=== PATIENT | male | born 1935 | race Caucasian/White ===

== ENCOUNTER 2018-07-14 14:08 | Emergency (ER) | payer OTHER, BC ==
--- OUTSIDE RECORDS SUMMARY | 2018-07-14 14:10 | XMS REPORT ---
:1935 [facility] Address [address] [place] [address] Dr. Black [address] [place] [id number] Care Team Providers Name Role Phone Unavailable Unavailable Unavailable Problems This patient has no known problems. Allergies, Adverse Reactions, Alerts This patient has no known allergies or adverse reactions. Medications This patient has no known medications.
--- OUTSIDE RECORDS SUMMARY | 2018-07-14 14:10 | XMS REPORT | Clinical Summary ---
:1935 Author Organization [facility] Address [address] [place] [address] Care Team Providers Name Role Phone Unavailable Primary Care Provider Unavailable Allergies Not on File Medications Not on file Active Problems Not on file Encounters Date Type Specialty Care Team Description 04/22/2018 Outside Orders Central Scheduling Chente Lew Multiple lung nodules MD Aramis on CT (Primary Dx) after 07/13/2017 Social History Tobacco Use Types Packs/Day Years Used Date Never Assessed Sex Assigned at Date Recorded Not on file Job Start Date Occupation Industry Not on file Not on file Not on file Travel History Travel Start Travel End No recent travel history available. Last Filed Vital Signs Not on file Plan of Treatment Not on file Results Not on fileafter 07/13/2017 Insurance Payer Benefit Plan / Subscriber ID Type Phone Address Group MEDICARE MEDICARE A B xxxxxxxxxxx Medicare BLUE CROSS/BLUE BCBS INDEMNITY [place] xxxxxxxxxxxx PPO [phone] [address] [facility] [place] [address]
[2018-07-14 15:26] LABS: Absolute Lymphocytes (CBC) 1.2 K/uL (0.7-4.9); Absolute Monocytes 0.7 K/uL (0.1-1.3); Absolute Neutrophil 4.7 K/uL (1.8-8.0); Basophils % 0.5 % (0-1.3); Eosinophils % 1.6 % (0-4.4); Hematocrit 33.2 % (39.6-49.0); Lymphocytes % 17.3 % (15.3-44.8); MPV 9.8 fL (7.6-11.3); Monocytes % 10.5 % (3.3-12.3); RBC Red Blood Cell Count 3.75 M/uL (4.33-5.43)
[2018-07-14 15:47] LABS: Albumin 2.9 g/dL (3.4-5.0); Bilirubin Direct 2.8 mg/dL (0-0.2); Bilirubin Total 3.5 mg/dL (0.2-1.0); Potassium 4.2 mmol/L (3.5-5.1)
[2018-07-14] MEDS ORDERED: NA CHLORIDE 0.9% 500 ML ONE (16:16)
--- NOTE | 2018-07-14 16:58 | RAD REPORT ---
EXAM DESCRIPTION: CT - Abdomen Pelvis W Contrast - 07/14/2018 4:25 pm CLINICAL HISTORY: Abdominal pain, nausea and vomiting COMPARISON: CT imaging December 2013 TECHNIQUE: Biphasic, helical CT imaging of the abdomen and pelvis was performed following 100 ml non -ionic IV contrast. No oral contrast administered. All CT scans are performed using dose optimization technique as appropriate and may include automated exposure control or mA/KV adjustment according to patient size. FINDINGS: No suspicious findings in the lung bases. Liver and spleen show no suspicious findings. Biliary tree is dilated. Cholecystectomy clips are pres ent. Dilatation is not outside of normal range for a post cholecystectomy patient. Common duct stones can be occult. Symmetric renal function is seen with no hydronephrosis or suspicious renal mass. No pyelonephritis o r acute parenchymal process. No bladder abnormalities. No adrenal abnormalities. Prostate gland and s eminal vesicles within normal range. No gastric dilatation or gastric wall thickening. Dilatation of the pancreatic duct seen in the tail and distal body. No mass lesions seen. This may be the sequela of prior pancreatitis seen on the 2013 study. A few fluid-filled nondilated small bowel loops are present. Patient has prominent left-sided diverticulosis. No diverticulitis confirmed. Patient does have stranding along the left anterior par arenal fascia and in the midline inferior to the pancreas. No specific findings in the peripancreatic tissues. No free air or pneumatosis. Trace amounts of free intraperitoneal fluid are present. No he rnia, mass or bulky lymphadenopathy. No suspicious bony findings. IMPRESSION: No bowel obstruction, free air or surgically emergent finding. Patient has nonspecific stranding in the peritoneal fat along with a trace amount of free fluid. No a cute findings specific to the pancreas Gallbladder is absent. Biliary tree is dilated more so than in 2014. This can still be within range o f normal. Duct stones can be occult. No pancreatic or duodenal mass. Prominent diverticulosis without specific acute diverticulitis finding.
--- NOTE | 2018-07-14 17:55 | ER ---
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 Vomited la1 x1 today, reports BMs have been smaller and a little white looking. Transition of care: patient was not received from another setting of care. Onset of symptoms was July 14, 2018. Risk Assessment: Do you want to hurt yourself or someone else? Patient reports no desire to harm self or others. Initial Sepsis Screen: Does the patient meet any 2 criteria? No. Patient's initial sepsis screen is negative. Does the patient have a suspected source of infection? No. Patient's initial sepsis screen is negative. Care prior to arrival: None. 14:17 Method Of Arrival: Ambulatory la1 14:17 Acuity: ELVIRA 3 la1 Historical: - Allergies: 14:18 PENICILLINS; la1 - PMHx: 14:18 Diabetes - NIDDM; GERD; Hypertension; Myocardial infarction; la1 - Immunization history:: Adult Immunizations up to date. - Social history:: Smoking status: Patient/guardian denies using tobacco. - Ebola Screening: : No symptoms or risks identified at this time. Screenin:10 Abuse screen: Denies threats or abuse. Nutritional screening: No deficits noted. aa5 Tuberculosis screening: No symptoms or risk factors identified. Fall Risk None identified. Assessment: 15:10 General: Appears comfortable, Behavior is calm, cooperative. Pain: Complains of pain in aa5 right lower quadrant and left lower quadrant Pain does not radiate. Pain currently is 0 out of 10 on a pain scale. Quality of pain is described as sharp, Is intermittent. Neuro: Level of Consciousness is awake, alert, obeys commands, Oriented to person, place, time, situation. Cardiovascular: Patient's skin is warm and dry. Respiratory: Airway is patent Respiratory effort is even, unlabored, Respiratory pattern is regular, symmetrical. GI: Abdomen is round Bowel sounds present X 4 quads. Abd is soft and non tender X 4 quads. Reports nausea, vomiting. : No signs and/or symptoms were reported regarding the genitourinary system. EENT: No signs and/or symptoms were reported regarding the EENT system. Derm: Skin is pink, warm \\T\\ dry. Musculoskeletal: Range of motion: intact in all extremities. 16:15 Reassessment: Patient is alert, oriented x 3, equal unlabored respirations, skin aa5 warm/dry/pink. Patient denies pain at this time. 17:40 Reassessment: Patient is alert, oriented x 3, equal unlabored respirations, skin aa5 warm/dry/pink. PA at bedside updating pt on plan of care and need for transfer. . 18:00 Reassessment: Pt's and pt appear upset about inability to transfer to [address] and about being transferred to [facility] instead. Pt's states "can we transfer him to [facility] instead?". PA was notified and attempting transfer to [facility] in [place], [place] at this time. . 19:00 Reassessment: Report given to [facility]. Awaiting EMS, pt notified. . aa5 19:19 Reassessment: Patient appears in no apparent distress at this time. Patient and/or jd3 family updated on plan of care and expected duration. Pain level reassessed. Patient is alert, oriented x 3, equal unlabored respirations, skin warm/dry/pink. awaiting EMS for transportation. Vital Signs: 14:18 BP 112 / 55; Pulse 69; Resp 16; Temp 97.2; Pulse Ox 98% on R/A; Weight 83.91 kg; Height la1 6 ft. 0 in. (182.88 cm); 15:15 BP 119 / 61; Pulse 67; Resp 16 S; Pulse Ox 98% on R/A; aa5 16:00 BP 107 / 58; Pulse 61; Resp 16 S; Pulse Ox 98% on R/A; aa5 17:00 BP 124 / 58; Pulse 58; Resp 16 S; Pulse Ox 98% on R/A; aa5 18:20 BP 116 / 55; Pulse 60; Resp 16 S; Temp 98.5(TE); Pulse Ox 99% on R/A; Pain 0/10; aa5 19:18 BP 116 / 57; Pulse 61; Resp 16 S; Pulse Ox 98% on R/A; jd3 14:18 Body Mass Index 25.09 (83.91 kg, 182.88 cm) la1 ED Course: 14:10 Patient arrived in ED. rg4 14:10 Braydon Andres MD is Private Physician. rg4 14:18 Triage completed. la1 14:18 Arm band placed on left wrist. la1 14:39 Reggie Altamirano, YAMIL is Primary Nurse. hj 14:44 Kianna Lawson, YAMIL is Primary Nurse. aa5 14:48 Solomon Saenz PA is PHCP. jr8 14:48 Steven Smith MD is Attending Physician. jr8 15:10 Patient has correct armband on for positive identification. Placed in gown. Bed in low aa5 position. Call light in reach. Side rails up X2. Pulse ox on. NIBP on. 15:10 Initial lab(s) drawn, by nh, sent to lab. Inserted saline lock: 22 gauge in right hj antecubital area, using aseptic technique. Blood collected. 16:13 Inserted saline lock: 22 gauge in left antecubital area, using aseptic technique. hj 16:19 CT completed. Patient tolerated procedure well. Patient moved to CT via wheelchair. sw Patient moved back from CT. 16:27 CT Abd/Pelvis - W/Contrast In Process Unspecified. EDMS 17:12 transfer initiated with Antonella at the [facility] [place]. eb 17:33 transfer initiated with Mildred at the [facility] transfer center as requested by eb patient. 17:40 connected the GI inspection manager from [facility] with Solomon RECIO for patient transfer eb consultation. 17:43 Mildred from [facility] called to decline patient in transfer due to be at capacity. eb 18:03 initiated a transfer with Liv from the [facility] in attempt to eb transfer patient to [facility] at the request of the patient. 18:15 connected the GI inspection manager from [facility] with Solomon RECIO for patient eb transfer consultation. 18:22 administrative approval given by Liv Garcia RN from the [facility] eb center/ Patient has been accepted by Harsha Piper S to the [facility]/ patient is going to the 4th floor there/ report to be called to [phone]. 19:10 Report given to YAMIL Simmons and YAMIL Mock. aa5 19:39 No provider procedures requiring assistance completed. Patient transferred, IV remains jd3 in place. Administered Medications: 15:59 Drug: NS 0.9% 500 ml Route: IV; Rate: bolus; Site: left antecubital; 17:00 Follow up: IV Status: Completed infusion; IV Intake: 500ml aa5 18:00 Drug: Mefoxin 1 grams {Note: administered slow IVP per pharmacy at this time .} Route: aa5 IVPB; Infused Over: 30 mins; Site: left antecubital; 18:25 Follow up: Response: No adverse reaction aa5 19:00 Follow up: Response: No adverse reaction; IV Status: Completed infusion; IV Intake: 75ofhg5 18:25 Drug: Flagyl 500 mg Volume: 100 ml; Route: IVPB; Rate: 200 ml/hr; Infused Over: 30 aa5 mins; Site: left antecubital; 18:38 Follow up: Response: No adverse reaction aa5 18:55 Follow up: Response: No adverse reaction; IV Status: Completed infusion; IV Intake: aa5 100ml Intake: 17:00 IV: 500ml; Total: 500ml. aa5 18:55 IV: 100ml; Total: 600ml. aa5 19:00 IV: 50ml; Total: 650ml. jd3 Outcome: 17:54 ER care complete, transfer ordered by MD. shaw 19:39 Transferred by ground EMS to other acute care facility: [facility]. Transfer form jd3 completed. X-rays sent w/ patient. Note: report given to EMS 19:39 Condition: stable 19:39 Instructed on the need for transfer, Demonstrated understanding of instructions. 19:40 Patient left the ED. jd3 Signatures: Dispatcher [employer] EDMS Kianna Lawson, RN RN aa5 Solomon Saenz PA PA jr8 Sujit Aguayo RN RN Angela Gonzalez Henry, RN RN hj Garcia, Rubi rg4 Davies, Jonathon, RN RN jd3 Maite Churchill Corrections: (The following items were deleted from the chart) 18:27 18:00 Mefoxin 1 grams IVPB in left antecubital over 30 mins aa5 aa5 18:33 18:20 Pulse 60bpm; Resp 16bpm; Spontaneous; Pulse Ox 99% RA; Temp 98.5F Temporal; Pain aa5 0/10; aa5
--- NOTE | 2018-07-14 17:56 | EDPHYS ---
Physician Documentation [facility] Name: Dirk Arshad Age: 82 yrs Sex: Male : 1935 Arrival Date: 07/14/2018 Time: 14:10 Bed 6 Private MD: Braydon Andres C ED Physician Steven Smith HPI: 07/14 16:09 This 82 yrs old Male presents to ER via Ambulatory with complaints of jr8 Abdominal Pain. 16:09 The patient presents with abdominal pain that is diffuse. Onset: The symptoms/episode jr8 began/occurred gradually, 2 day(s) ago. The symptoms do not radiate. Associated signs and symptoms: Pertinent positives: nausea. The symptoms are described as dull, stabbing. Modifying factors: The symptoms are alleviated by nothing, the symptoms are aggravated by nothing. Severity of pain: At its worst the pain was moderate in the emergency department the pain is unchanged. The patient has not experienced similar symptoms in the past. The patient has not recently seen a physician. Stated that he has been taking stool softeners for constipation feeling. Stated that he is able to have a bowel movement now but noticed that his stool is almost white looking and now having pain, distension, and nausea feeling . Historical: - Allergies: 14:18 PENICILLINS; la1 - PMHx: 14:18 Diabetes - NIDDM; GERD; Hypertension; Myocardial infarction; la1 - Immunization history:: Adult Immunizations up to date. - Social history:: Smoking status: Patient/guardian denies using tobacco. - Ebola Screening: : No symptoms or risks identified at this time. ROS: 16:09 Eyes: Negative for injury, pain, redness, and discharge, ENT: Negative for injury, jr8 pain, and discharge, Neck: Negative for injury, pain, and swelling, Cardiovascular: Negative for chest pain, palpitations, and edema, Respiratory: Negative for shortness of breath, cough, wheezing, and pleuritic chest pain, Back: Negative for injury and pain, MS/Extremity: Negative for injury and deformity, Skin: Negative for injury, rash, and discoloration, Neuro: Negative for headache, weakness, numbness, tingling, and seizure. 16:09 Abdomen/GI: Positive for abdominal pain, nausea, constipation, abdominal cramps, abdominal distension, Negative for hematemesis, black/tarry stool, rectal pain, rectal bleeding, bowel incontinence, flatulence. Exam: 16:09 Eyes: Pupils equal round and reactive to light, extra-ocular motions intact. Lids and jr8 lashes normal. Conjunctiva and sclera are non-icteric and not injected. Cornea within normal limits. Periorbital areas with no swelling, redness, or edema. ENT: Nares patent. No nasal discharge, no septal abnormalities noted. Tympanic membranes are normal and external auditory canals are clear. Oropharynx with no redness, swelling, or masses, exudates, or evidence of obstruction, uvula midline. Mucous membranes moist. Neck: Trachea midline, no thyromegaly or masses palpated, and no cervical lymphadenopathy. Supple, full range of motion without nuchal rigidity, or vertebral point tenderness. No Meningismus. Cardiovascular: Regular rate and rhythm with a normal S1 and S2. No gallops, murmurs, or rubs. Normal PMI, no JVD. No pulse deficits. Respiratory: Lungs have equal breath sounds bilaterally, clear to auscultation and percussion. No rales, rhonchi or wheezes noted. No increased work of breathing, no retractions or nasal flaring. Back: No spinal tenderness. No costovertebral tenderness. Full range of motion. Skin: Warm, dry with normal turgor. Normal color with no rashes, no lesions, and no evidence of cellulitis. MS/ Extremity: Pulses equal, no cyanosis. Neurovascular intact. Full, normal range of motion. Neuro: Awake and alert, GCS 15, oriented to person, place, time, and situation. Cranial nerves II-XII grossly intact. Motor strength 5/5 in all extremities. Sensory grossly intact. Cerebellar exam normal. Normal gait. 16:09 Abdomen/GI: Inspection: distension, that is mild, obese Bowel sounds: active, all quadrants, Palpation: soft, in all quadrants, moderate abdominal tenderness, in the anterior aspect of right lateral abdomen and right upper quadrant, mass, is not appreciated, rebound tenderness, is not appreciated, voluntary guarding, is not appreciated, involuntary guarding, is not appreciated, no appreciated organomegaly, Indicators: McBurney's point is not tender, Mayo's sign is negative, Rovsing's sign is negative, Liver: tenderness, is not appreciated. Vital Signs: 14:18 BP 112 / 55; Pulse 69; Resp 16; Temp 97.2; Pulse Ox 98% on R/A; Weight 83.91 kg; Height la1 6 ft. 0 in. (182.88 cm); 15:15 BP 119 / 61; Pulse 67; Resp 16 S; Pulse Ox 98% on R/A; aa5 16:00 BP 107 / 58; Pulse 61; Resp 16 S; Pulse Ox 98% on R/A; aa5 17:00 BP 124 / 58; Pulse 58; Resp 16 S; Pulse Ox 98% on R/A; aa5 18:20 BP 116 / 55; Pulse 60; Resp 16 S; Temp 98.5(TE); Pulse Ox 99% on R/A; Pain 0/10; aa5 19:18 BP 116 / 57; Pulse 61; Resp 16 S; Pulse Ox 98% on R/A; jd3 14:18 Body Mass Index 25.09 (83.91 kg, 182.88 cm) la1 MDM: 14:49 Patient medically screened. [facility] 17:48 ED course: After discussing with family that there is no GI available for admission and [facility] to complete MRCP or ERCP, which family was very irritated by. They wanted to be transferred to [facility]. We reached out to [facility] but are at capacity at this time and will not except transfer. I then called out to [facility] who accepted patient. 17:51 Data reviewed: vital signs, nurses notes, lab test result(s), radiologic studies, CT [facility] scan. Data interpreted: Pulse oximetry: on room air is 98 %. Interpretation: normal. Counseling: I had a detailed discussion with the patient and/or guardian regarding: the historical points, exam findings, and any diagnostic results supporting the discharge/admit diagnosis, lab results, radiology results, the need to transfer to another facility, [facility] does not immediately have the required specialist. ED course: Dr. Judy ACHARYA accepted for consult at [facility]. 18:18 ED course: wanted us to try Rigo Luo which we obliged. GI accepted at [facility] [place] . 07/14 14:58 Order name: Basic Metabolic Panel; Complete Time: 15:58 [facility] 07/14 14:58 Order name: CBC with Diff; Complete Time: 15:37 07/14 14:58 Order name: Creatinine for Radiology; Complete Time: 15:58 07/14 14:58 Order name: Hepatic Function; Complete Time: 15:58 07/14 14:58 Order name: Lipase; Complete Time: 15:58 07/14 15:59 Order name: CT Abd/Pelvis - W/Contrast; Complete Time: 17:04 07/14 14:58 Order name: IV Saline Lock; Complete Time: 15:15 07/14 14:58 Order name: Labs collected and sent; Complete Time: 15:15 Administered Medications: 15:59 Drug: NS 0.9% 500 ml Route: IV; Rate: bolus; Site: left antecubital; hj 17:00 Follow up: IV Status: Completed infusion; IV Intake: 500ml aa5 18:00 Drug: Mefoxin 1 grams {Note: administered slow IVP per pharmacy at this time .} Route: aa5 IVPB; Infused Over: 30 mins; Site: left antecubital; 18:25 Follow up: Response: No adverse reaction aa5 19:00 Follow up: Response: No adverse reaction; IV Status: Completed infusion; IV Intake: [id number] 18:25 Drug: Flagyl 500 mg Volume: 100 ml; Route: IVPB; Rate: 200 ml/hr; Infused Over: 30 aa5 mins; Site: left antecubital; 18:38 Follow up: Response: No adverse reaction aa5 18:55 Follow up: Response: No adverse reaction; IV Status: Completed infusion; IV Intake: aa5 100ml Disposition: 07/14/18 17:54 Transfer ordered to Other Acute Care Facility. 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 - Reason for transfer: Higher level of care. - Accepting physician is Rigo Luo. - Condition is Stable. - Problem is new. - Symptoms are unchanged. Addendum: 07/16/2018 08:11 Co-signature as Attending Physician, Steven Smith MD I agree with the assessment and k dr plan of care. Signatures: Dispatcher [employer] EDOH Steven Smith MD MD [facility] Kianna Lawson, RN RN aa5 Solomon Saenz PA PA jr8 Sujit Aguayo RN RN la1 Reggie Altamirano RN RN Nish Jimenez RN RN jd3 Corrections: (The following items were deleted from the chart) 07/14 18:19 17:54 07/14/2018 17:[address] [facility]. 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 Reason for transfer: Higher level of care. Accepting physician is Dr. Kim. Condition is Stable. Problem is new. Symptoms are unchanged. jr8 19:40 18:19 07/14/2018 17:54 Transfer ordered to Other Acute Care Facility. 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 Reason for transfer: Higher level of care. Accepting physician is Rigo Luo. Condition is Stable. Problem is new. Symptoms are unchanged. jr8
[2018-07-14] MEDS ORDERED: CEFOXITIN/SWI 1gm 1 GM/10 ML SYR ONE (18:08)
[2018-07-14] MEDS ORDERED: METRONIDAZOLE 500mg IVPB 500 MG/100 ML BAG IV ONE (18:09)
[2018-07-14 20:29] VITALS: TEMP 98.5
[2018-07-14 20:30] VITALS: BP 116/57; O2SAT 98
== END 2018-07-14 19:40 ==
LOC: ER 14:08
DX: K83.1 Obstruction of bile duct (principal); K72.90 Hepatic failure, unspecified without coma; I10 Essential (primary) hypertension; I25.2 Old myocardial infarction; Z88.0 Allergy status to penicillin
CPT/HCPCS: 96365; 96361; 85025; 80048; 36415; 80076; 83690; 74177; 99285; Q9967

== ENCOUNTER 2018-11-17 14:41 | Emergency (ER) | payer OTHER, BC ==
[2018-11-17] MEDS ORDERED: NA CHLORIDE 0.9% 1,000 ML ONE ×2 (14:59→15:26)
[2018-11-17 15:28] LABS: Absolute Lymphocytes (CBC) 2.3 K/uL (0.7-4.9); Basophils % 1.2 % (0-1.3); Hematocrit 34.2 % (39.6-49.0); Lymphocytes % 19.9 % (15.3-44.8); MPV 9.4 fL (7.6-11.3); RBC Red Blood Cell Count 3.97 M/uL (4.33-5.43)
--- NOTE | 2018-11-17 15:37 | RAD REPORT ---
EXAM DESCRIPTION: RAD - Chest Single View - 11/17/2018 3:31 pm CLINICAL HISTORY: Cough COMPARISON: March 01, 2018 TECHNIQUE: AP portable chest image was obtained 1523 hours . FINDINGS: Fibrotic an obstructive lung changes match prior imaging. Stranding is slightly worse in t he right base. Minimal infiltrate is possible. No consolidation or mass. No vascular engorgement. Hea rt size is normal. No measurable pleural effusion and no pneumothorax. Skin fold artifacts are seen i n each apex. No acute bony abnormality seen. No acute aortic findings suspected. IMPRESSION: Prominent baseline COPD with slightly increased right lung base markings. Correlation is needed with any early lung base infiltrate findings.
[2018-11-17 15:38] LABS: Protime INR 1.06
[2018-11-17 15:51] LABS: ALT/SGPT 14 U/L (12-78); AST/SGOT 18 U/L (15-37); Albumin 2.5 g/dL (3.4-5.0); Alkaline Phosphatase 128 U/L (45-117); BUN Blood Urea Nitrogen 37 mg/dL (7-18); Bicarbonate 23 mmol/L (21-32); Bilirubin Direct 0.2 mg/dL (0-0.2); Bilirubin Total 0.5 mg/dL (0.2-1.0); Glucose Level 186 mg/dL (74-106); Lipase 137 U/L (73-393); Magnesium 1.8 mg/dL (1.8-2.4); NT PRO-BNP 2751 pg/mL (<450); Potassium 3.8 mmol/L (3.5-5.1); Protein, Total 6.6 g/dL (6.4-8.2); Sodium Level 134 mmol/L (136-145); Troponin (Emerg Dept Use Only) < 0.02 ng/mL (0.0-0.045)
--- NOTE | 2018-11-17 16:21 | RAD REPORT ---
EXAM DESCRIPTION: CT - Abdomen Pelvis Wo Contrast - 11/17/2018 4:07 pm CLINICAL HISTORY: ABD PAIN COMPARISON: Abdomen Pelvis W Contrast dated 07/14/2018 . TECHNIQUE: Axial [address] imaging of the abdomen and pelvis was performed without IV contrast. No IV contrast was given because of allergy, abnormal renal function, patient refusal or physician re quest. No oral contrast administered. All CT scans are performed using dose optimization technique as appropriate and may include automated exposure control or mA/KV adjustment according to patient size. FINDINGS: Small spiculated density lateral right lung base not clearly different from the May study. Small bilateral pleural effusions are present. Nodular liver is again noted. TIPS stent is in place with pneumobilia present. No focal liver lesion on noncontrast imaging. No splenic abnormality. No pancreatic parenchymal acute finding. Cholecystect casey clips are present. No biliary tree abnormal dilatation. No hydronephrosis or suspicious renal mass. No significant adrenal finding. Isodense renal masses an d pyelonephritis cannot be excluded in the absence of IV contrast. Urinary bladder is contracted. Gastric haney are thickened in appearance but difficult to accurately assessed due to the absence of any contrast, fluid or fluid in the lumen. Large and small bowel loops are not dilated. Prominent div erticulosis in the sigmoid colon without acute diverticulitis suspected. No free air or pneumatosis. A large amount of ascites has developed. Significant fluid retention in t he subcutaneous fatty tissues. No hernia, mass or bulky lymphadenopathy. No suspicious bony findings. IMPRESSION: Large volume of ascites has developed since the June comparison study. Patient has also r eceived a TIPS shunt. No free air or pneumatosis. No bowel obstruction. Prominent left-sided diverticulosis present. Significant fluid retention in the subcutaneous fatty tissues along with small bilateral pleural effu sions. 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 Full assessment is limited is the absence of IV contrast.
[2018-11-17] MEDS ORDERED: CEFTRIAXONE/SWI 1gm 1 GM/10 ML SYR ONE (16:59)
--- NOTE | 2018-11-17 17:24 | EDPHYS ---
Physician Documentation [facility] Name: Dirk Arshad Age: 83 yrs Sex: Male : 1935 Arrival Date: 11/17/2018 Time: 14:45 Bed 3 Private MD: Braydon Andres C ED Physician Papa Bertrand HPI: 11/17 15:13 This 83 yrs old Male presents to ER via Wheelchair with complaints of vince Diarrhea, General Weakness, dehydration. 15:10 The patient presents to the emergency department with nausea, diarrhea, abdominal pain. vince Onset: The symptoms/episode began/occurred today, yesterday. Possible causes: unknown. The symptoms are aggravated by movement, The symptoms are alleviated by nothing. remaining still. Associated signs and symptoms: The patient has no apparent associated signs or symptoms. The patient has experienced similar episodes in the past, several times. Historical: - Allergies: 14:47 PENICILLINS; sv - Home Meds: 15:08 allopurinol 300 mg Oral tab 1 tab once daily [Active]; carvedilol 3.125 mg Oral tab 1 mg2 tab 2 times per day [Active]; atprvastatom 40 mg once daily [Active]; gemfibrozil 600 mg Oral tab 1 tab 2 times per day [Active]; finasteride 1 mg Oral tab 1 tab once daily [Active]; glimepiride 4 mg Oral tab 1 tab once daily [Active]; metformin 1,000 mg Oral tr24 1 tab once daily [Active]; pantoprazole 40 mg Oral TbEC 1 tab once daily [Active]; pioglitazone 15 mg Oral tab 1 tab once daily [Active]; spariva [Active]; valsartan 320 mg Oral tab 1 tab once daily [Active]; - PMHx: 14:47 Diabetes - NIDDM; GERD; Hypertension; Myocardial infarction; sv - Immunization history:: Flu vaccine status is unknown. - Social history:: Smoking status: unknown. - Ebola Screening: : No symptoms or risks identified at this time. - Family history:: not pertinent. ROS: 15:10 Constitutional: Negative for fever, chills, and weight loss, Eyes: Negative for injury, vince pain, redness, and discharge, ENT: Negative for injury, pain, and discharge, Neck: Negative for injury, pain, and swelling, Cardiovascular: Negative for chest pain, palpitations, and edema, Respiratory: Negative for shortness of breath, cough, wheezing, and pleuritic chest pain, Back: Negative for injury and pain, : Negative for injury, bleeding, discharge, and swelling, Skin: Negative for injury, rash, and discoloration, Psych: Negative for depression, anxiety, suicide ideation, homicidal ideation, and hallucinations, Allergy/Immunology: Negative for hives, rash, and allergies, Endocrine: Negative for neck swelling, polydipsia, polyuria, polyphagia, and marked weight changes, Hematologic/Lymphatic: Negative for swollen nodes, abnormal bleeding, and unusual bruising. 15:10 Abdomen/GI: Positive for abdominal pain, abdominal distension. 15:10 MS/extremity: Positive for swelling. 15:10 Neuro: Positive for weakness. Exam: 15:10 Constitutional: This is a well developed, well nourished patient who is awake, alert, vince and in no acute distress. Head/Face: Normocephalic, atraumatic. Eyes: Pupils equal round and reactive to light, extra-ocular motions intact. Lids and lashes normal. Conjunctiva and sclera are non-icteric and not injected. Cornea within normal limits. Periorbital areas with no swelling, redness, or edema. ENT: Nares patent. No nasal discharge, no septal abnormalities noted. Tympanic membranes are normal and external auditory canals are clear. Oropharynx with no redness, swelling, or masses, exudates, or evidence of obstruction, uvula midline. Mucous membranes moist. Neck: Trachea midline, no thyromegaly or masses palpated, and no cervical lymphadenopathy. Supple, full range of motion without nuchal rigidity, or vertebral point tenderness. No Meningismus. Chest/axilla: Normal chest wall appearance and motion. Nontender with no deformity. No lesions are appreciated. Cardiovascular: Regular rate and rhythm with a normal S1 and S2. No gallops, murmurs, or rubs. Normal PMI, no JVD. No pulse deficits. Respiratory: Lungs have equal breath sounds bilaterally, clear to auscultation and percussion. No rales, rhonchi or wheezes noted. No increased work of breathing, no retractions or nasal flaring. Back: No spinal tenderness. No costovertebral tenderness. Full range of motion. Male : Normal genitalia with no discharge or lesions. MS/ Extremity: Pulses equal, no cyanosis. Neurovascular intact. Full, normal range of motion. Neuro: Awake and alert, GCS 15, oriented to person, place, time, and situation. Cranial nerves II-XII grossly intact. Motor strength 5/5 in all extremities. Sensory grossly intact. Cerebellar exam normal. Normal gait. Psych: Awake, alert, with orientation to person, place and time. Behavior, mood, and affect are within normal limits. 15:10 Abdomen/GI: Inspection: distension, Bowel sounds: active, Palpation: nontender, Liver: is firm, Hernia: not appreciated. 15:10 Skin: Appearance: Color: pale, Temperature: normal temperature, Moisture: normal moisture, petechiae, not noted, ecchymosis, not noted, cellulitis, is not appreciated. Vital Signs: 14:47 BP 70 / 36; Pulse 65; Resp 18; Temp 98.1(O); Pulse Ox 98% ; Weight 74.84 kg; sv 15:08 BP 80 / 48; Pulse 62; Resp 18; Pulse Ox 100% on R/A; mg2 15:55 BP 91 / 48; Pulse 65; Resp 18; Pulse Ox 98% on R/A; ph 17:34 BP 102 / 49; Pulse 60; Resp 18; Pulse Ox 98% on R/A; mg2 18:43 BP 97 / 52; Pulse 65; Resp 18; Pulse Ox 99% on R/A; mg2 19:11 BP 96 / 51; Pulse 70; Resp 18 S; Pulse Ox 98% on R/A; Pain 0/10; jd3 19:18 BP 107 / 54; jd3 19:55 BP 106 / 54; Pulse 69; Resp 17 S; Pulse Ox 99% on R/A; Pain 0/10; jd3 MDM: 14:52 Patient medically screened. [facility] 15:13 Data reviewed: vital signs, nurses notes, lab test result(s), EKG, radiologic studies, vince plain films. 11/17 14:51 Order name: Basic Metabolic Panel; Complete Time: 16:05 [facility] 11/17 14:51 Order name: CBC with Diff; Complete Time: 16: [facility] 11/17 14:51 Order name: LFT's; Complete Time: 16: [facility] 11/17 14:51 Order name: Magnesium; Complete Time: 16: [facility] 11/17 14:51 Order name: NT PRO-BNP; Complete Time: 16:05 [facility] 11/17 14:51 Order name: PT-INR; Complete Time: 16:05 [facility] 11/17 14:51 Order name: Troponin (emerg Dept Use Only); Complete Time: 16: [facility] 11/17 14:51 Order name: Lipase; Complete Time: 16:05 11/17 15:10 Order name: Type And Screen; Complete Time: 16:21 [facility] 11/17 15:15 Order name: AMMONIA; Complete Time: 16: [facility] 11/17 16:48 Order name: Blood Culture Adult (2) 11/17 14:51 Order name: XRAY Chest (1 view); Complete Time: 16:05 [facility] 11/17 14:51 Order name: EKG; Complete Time: 14:53 [facility] 11/17 14:51 Order name: Cardiac monitoring; Complete Time: 15:03 [facility] 11/17 14:51 Order name: EKG - Nurse/Tech; Complete Time: 15:03 [facility] 11/17 14:51 Order name: IV Saline Lock; Complete Time: 15:03 [facility] 11/17 14:51 Order name: Labs collected and sent; Complete Time: 15:04 [facility] 11/17 14:51 Order name: O2 Per Protocol; Complete Time: 15:04 [facility] 11/17 14:51 Order name: O2 Sat Monitoring; Complete Time: 15:04 [facility] 11/17 16:02 Order name: Abdomen ; Complete Time: 16:46 EDMS 11/17 17:18 Order name: IV Saline Lock - Large Bore; Complete Time: 17:32 [facility] Administered Medications: 15:03 Drug: NS 0.9% 1000 ml Route: IV; Rate: 1 bolus; Site: right antecubital; mg2 16:58 Follow up: Response: No adverse reaction; IV Status: Completed infusion; IV Intake: mg2 1000ml 15:26 Drug: NS 0.9% 1000 ml Route: IV; Rate: 125 ml/hr; Site: right antecubital; mg2 19:17 Follow up: Response: No adverse reaction; IV Status: Infusion continued upon transfer jd3 17:15 Drug: Rocephin 1 grams Route: IV; Rate: per protocol; Site: right antecubital; mg2 18:50 Follow up: Response: No adverse reaction; IV Status: Completed infusion mg2 17:43 Drug: Albumin 25 grams Volume: 100 ml; Route: IVPB; Site: right antecubital; mg2 19:14 Follow up: Response: No adverse reaction; IV Status: Completed infusion jd3 Point of Care Testing: Blood Glucose: 15:04 Blood Glucose: 219 mg/dL; mg2 Ranges: Critical Glucose Levels:Adult <50 mg/dl or >400 mg/dl <40 mg/dl or >180 mg/dl Disposition: 11/17/18 17:22 Transfer ordered to [facility]. Diagnosis are Ascites, Type 2 diabetes mellitus, Unspecified kidney failure, Weakness, Hypotension. - Reason for transfer: Higher level of care. - Accepting physician is to [facility]. - Condition is Fair. - Problem is new. - Symptoms have improved. Signatures: Dispatcher [employer] EDMS Mayra Benitez, RN Papa Oakes MD MD cha Davies, Jonathon, RN RN jFrandy Bills RN RN mg2 Corrections: (The following items were deleted from the chart) 16:02 15:16 Abdomen Pelvis W Con+CT.RAD.BRZ ordered. [facility] EDAZ 18:37 17:22 11/17/2018 17:22 Transfer ordered to [facility]. Diagnosis is vince Ascites; Type 2 diabetes mellitus; Unspecified kidney failure; Weakness; Hypotension. Reason for transfer: Higher level of care. Accepting physician is to [facility]. Condition is Fair. Problem is new. Symptoms have improved. [facility] 20:18 18:37 11/17/2018 17:22 Transfer ordered to [facility]. Diagnosis is jd3 Ascites; Type 2 diabetes mellitus; Unspecified kidney failure; Weakness; Hypotension. Reason for transfer: Higher level of care. Accepting physician is to [facility]. Condition is Fair. Problem is new. Symptoms have improved. vince
--- NOTE | 2018-11-17 17:24 | ER ---
Nurse's Notes [facility] Name: Dirk Arshad Age: 83 yrs Sex: Male : 1935 Arrival Date: 11/17/2018 Time: 14:45 Bed 3 Private MD: Braydon Andres C Diagnosis: Ascites;Type 2 diabetes mellitus;Unspecified kidney failure;Weakness;Hypotension Presentation: 11/17 14:47 Presenting complaint: Patient states: diarrhea, BLE swelling, dehydration x 1 week. sv Transition of care: patient was not received from another setting of care. Onset of symptoms was October 2018. Risk Assessment: Do you want to hurt yourself or someone else? Patient reports no desire to harm self or others. Care prior to arrival: None. 14:47 Method Of Arrival: Wheelchair sv 14:47 Acuity: ELVIRA 2 sv 15:07 Initial Sepsis Screen: Does the patient meet any 2 criteria? No. Patient's initial mg2 sepsis screen is negative. Does the patient have a suspected source of infection? No. Patient's initial sepsis screen is negative. Historical: - Allergies: 14:47 PENICILLINS; sv - Home Meds: 15:08 allopurinol 300 mg Oral tab 1 tab once daily [Active]; carvedilol 3.125 mg Oral tab 1 mg2 tab 2 times per day [Active]; atprvastatom 40 mg once daily [Active]; gemfibrozil 600 mg Oral tab 1 tab 2 times per day [Active]; finasteride 1 mg Oral tab 1 tab once daily [Active]; glimepiride 4 mg Oral tab 1 tab once daily [Active]; metformin 1,000 mg Oral tr24 1 tab once daily [Active]; pantoprazole 40 mg Oral TbEC 1 tab once daily [Active]; pioglitazone 15 mg Oral tab 1 tab once daily [Active]; spariva [Active]; valsartan 320 mg Oral tab 1 tab once daily [Active]; - PMHx: 14:47 Diabetes - NIDDM; GERD; Hypertension; Myocardial infarction; sv - Immunization history:: Flu vaccine status is unknown. - Social history:: Smoking status: unknown. - Ebola Screening: : No symptoms or risks identified at this time. - Family history:: not pertinent. Screenin:05 Abuse screen: Denies threats or abuse. Denies injuries from another. Nutritional mg2 screening: No deficits noted. Tuberculosis screening: No symptoms or risk factors identified. Fall Risk IV access (20 points). Assessment: 15:06 General: Appears in no apparent distress. comfortable, Behavior is calm, cooperative. mg2 Pain: Denies pain. Neuro: Level of Consciousness is awake, alert, obeys commands, Oriented to person, place, time, situation. Cardiovascular: Capillary refill < 3 seconds Patient's skin is warm and dry. Respiratory: Airway is patent Respiratory effort is even, unlabored, Respiratory pattern is regular, symmetrical. GI: Reports diarrhea. : No signs and/or symptoms were reported regarding the genitourinary system. EENT: No signs and/or symptoms were reported regarding the EENT system. Derm: Skin is intact, is healthy with good turgor, Skin is pink, warm \T\ dry. normal. Musculoskeletal: Reports weakness in whole body. 17:15 Reassessment: provider spoke to the patient about the plan for transfer. he agreed. mg2 18:44 Reassessment: provider spoke to the patient about the bed transfer saying that there is [facility] no bed available in [facility] and he suggested [facility]. awaiting decision. 19:09 General: Appears in no apparent distress. comfortable, Behavior is calm, cooperative, jd3 appropriate for age, Reports fatigue for 1-2 days. Pain: Denies pain. Neuro: Level of Consciousness is awake, alert, obeys commands, Oriented to person, place, time, situation. Cardiovascular: Denies chest pain, Capillary refill < 3 seconds Patient's skin is warm and dry. Respiratory: Airway is patent Respiratory effort is even, unlabored, Respiratory pattern is regular, symmetrical, Denies cough, shortness of breath at rest. GI: Abdomen is round noted to have ascites, Abd is non tender X 4 quads Reports diarrhea, Patient currently denies nausea, vomiting. : No signs and/or symptoms were reported regarding the genitourinary system. EENT: No signs and/or symptoms were reported regarding the EENT system. Derm: Skin is intact, Skin is dry, Skin is normal, Skin temperature is warm. Musculoskeletal: Circulation, motion, and sensation intact. Range of motion: intact in all extremities. 19:10 Reassessment: report called to [facility], nurse was unavailable. jd3 19:30 Reassessment: called report to [facility], nurse unavailable. jd3 19:48 Reassessment: report given to Saige LOBO at [facility]. jd3 19:53 Reassessment: pt's : Brooke Arshad: [phone]. jd3 19:55 Reassessment: Patient appears in no apparent distress at this time. Patient and/or jd3 family updated on plan of care and expected duration. Pain level reassessed. Patient is alert, oriented x 3, equal unlabored respirations, skin warm/dry/pink. awaiting EMS for transfer. 20:17 Reassessment: report given to EMS. j Vital Signs: 14:47 BP 70 / 36; Pulse 65; Resp 18; Temp 98.1(O); Pulse Ox 98% ; Weight 74.84 kg; sv 15:08 BP 80 / 48; Pulse 62; Resp 18; Pulse Ox 100% on R/A; mg2 15:55 BP 91 / 48; Pulse 65; Resp 18; Pulse Ox 98% on R/A; ph 17:34 BP 102 / 49; Pulse 60; Resp 18; Pulse Ox 98% on R/A; mg2 18:43 BP 97 / 52; Pulse 65; Resp 18; Pulse Ox 99% on R/A; mg2 19:11 BP 96 / 51; Pulse 70; Resp 18 S; Pulse Ox 98% on R/A; Pain 0/10; jd3 19:18 BP 107 / 54; jd3 19:55 BP 106 / 54; Pulse 69; Resp 17 S; Pulse Ox 99% on R/A; Pain 0/10; jd3 ED Course: 14:45 Patient arrived in ED. am2 14:45 Braydon Andres MD is Private Physician. am2 14:47 Triage completed. sv 14:47 Arm band placed on. sv 14:49 Papa Bertrand MD is Attending Physician. vince 14:54 Frandy Azul, MARCIAL is Primary Nurse. mg2 15:05 No provider procedures requiring assistance completed. Inserted saline lock: 20 gauge mg2 in right antecubital area, using aseptic technique. 15:07 Patient has correct armband on for positive identification. monitor worker on. Pulse mg2 ox on. NIBP on. Door closed. Warm blanket given. 15:07 EKG done, by ED staff, reviewed by Papa Bertrand MD. ms 15:10 Missed attempt(s): 20 gauge in left forearm. ph 15:15 Inserted saline lock: 22 gauge in left hand, using aseptic technique. ph 15:27 Radiology exam delayed due to lab results not completed at this time. (BUN/Creatinine). kw1 15:32 XRAY Chest (1 view) In Process Unspecified. EDMS 16:07 Abdomen In Process Unspecified. EDMS 17:[address] Bertrand with Rose Sandra from the [facility] transfer [place].eb 18:[address] Sparks the doctor director information security for [facility] with Dr. Bertrand for patient eb transfer consultation. 18:29 Rose from the [facility] Transfer Center called to decline the patient in transfer eb because they are at [facility]. 18:30 initiated a transfer with Shawnee Calvillo RN from the [facility]. eb 18:46 connected the Turning Machine Set Up Operator and the Hospitalist director information security for [facility] with Dr. lorna Bertrand for patient transfer consultation. 18:54 administrative approval given by Shawnee Calvillo RN/ patient has been accepted to [facility] bed 1451/ Dr Grimm has accepted the patient in transfer/ report to be called [phone]. 18:59 Report given to marcial esparza. mg2 19:54 Patient transferred, IV remains in place. jd3 Administered Medications: 15:03 Drug: NS 0.9% 1000 ml Route: IV; Rate: 1 bolus; Site: right antecubital; mg2 16:58 Follow up: Response: No adverse reaction; IV Status: Completed infusion; IV Intake: mg2 1000ml 15:26 Drug: NS 0.9% 1000 ml Route: IV; Rate: 125 ml/hr; Site: right antecubital; mg2 19:17 Follow up: Response: No adverse reaction; IV Status: Infusion continued upon transfer jd3 17:15 Drug: Rocephin 1 grams Route: IV; Rate: per protocol; Site: right antecubital; mg2 18:50 Follow up: Response: No adverse reaction; IV Status: Completed infusion mg2 17:43 Drug: Albumin 25 grams Volume: 100 ml; Route: IVPB; Site: right antecubital; mg2 19:14 Follow up: Response: No adverse reaction; IV Status: Completed infusion jd3 Point of Care Testing: Blood Glucose: 15:04 Blood Glucose: 219 mg/dL; mg2 Ranges: Intake: 16:58 IV: 1000ml; Total: 1000ml. mg2 Outcome: 17:22 ER care complete, transfer ordered by MD. clarke 20:17 Transferred by ground EMS to [facility], Transfer form completed. jd3 X-rays sent w/ patient. 20:17 Condition: stable 20:17 Instructed on the need for transfer, Demonstrated understanding of instructions. 20:18 Patient left the ED. jd3 Signatures: Dispatcher [employer] EDMayra Starr RN Papa Oakes MD MD cha Solis, Maria ms Hall, Patricia RN RN Lidia Maza Jonathon, RN RN Anette Clifton1 Maite Churchill Michele, RN RN mg2 Corrections: (The following items were deleted from the chart) 14:48 14:47 Acuity: ELVIRA 3 sv
[2018-11-17] MEDS ORDERED: ALBUMIN HUMAN 25% 100 ML IV ONE (17:38)
[2018-11-17 20:27] VITALS: TEMP 98.1
[2018-11-17 20:35] VITALS: BP 106/54; O2SAT 99
--- NOTE | 2018-11-18 06:12 | EKG ---
Test Date: 2018-11-17 Test Time: 14:57:32 Pediatric Cns: MEASUREMENT RESULTS: Intervals: Rate: 71 OR: 202 QRSD: 112 QT: 418 QTc: 454 [place]: P: 66 OR: 202 QRS: 63 T: 79 INTERPRETIVE STATEMENTS: Sinus rhythm with occasional premature ventricular complexes Right bundle branch block ST & T wave abnormality, consider anterior ischemia Abnormal ECG Compared to ECG 04/30/2017 10:45:29 Ventricular premature complex(es) now present ST (T wave) deviation now present Electronically Signed On 11-18-18 06:12:10 CDT by Ciaran Perez
== END 2018-11-17 20:18 | disposition short-term general hospital (02) ==
LOC: ER 14:41
DX: R18.8 Other ascites (principal); N19 Unspecified kidney failure; E11.9 Type 2 diabetes mellitus without complications; I95.9 Hypotension, unspecified; I10 Essential (primary) hypertension; I25.2 Old myocardial infarction; Z88.0 Allergy status to penicillin
CPT/HCPCS: 96365; 96361; 96368; 93005; 87040 ×2; 85025; 80048; 36415; 82140; 86900; 83735; 86850; 85610; 86901; 82962; 80076; 84484; 83690; 83880; 74176; 71045; 99285; J0696; P9047; J7030 ×2

== ENCOUNTER 2018-11-29 07:21 | Day surgery (SDC) | payer OTHER, BC ==
[2018-11-29 08:56] VITALS: BP 123/73; TEMP 97.8; O2SAT 100
[2018-11-29 08:58] VITALS: BMI 23.0
--- NOTE | 2018-11-29 10:43 | RAD REPORT ---
EXAM DESCRIPTION: US - Abdomen Exam Limited - 11/29/2018 9:33 am CLINICAL HISTORY: Ascites COMPARISON: November 17, 2018 cat scan FINDINGS: The amount of ascites has decreased status post paracentesis. A small to moderate amount o f ascites is present. IMPRESSION: Small to moderate amount of ascites. Paracentesis has been scheduled for December 04, 2018
== END 2018-11-29 09:15 | disposition home or self-care (01) ==
LOC: DS 07:21
PROVIDERS: ATTEND Internal Medicine
DX: K74.60 Unspecified cirrhosis of liver (principal)
CPT/HCPCS: 76705

== ENCOUNTER 2018-12-09 07:42 | Day surgery (SDC) | payer OTHER, BC ==
[2018-12-09] MEDS ORDERED: ALBUMIN HUMAN 25% 200 ML IV ONE (09:47)
[2018-12-09 10:42] VITALS: BMI 23.0
--- NOTE | 2018-12-09 10:47 | RAD REPORT ---
EXAM DESCRIPTION: US - Paracentesis Proc Guidance - 12/09/2018 9:38 am CLINICAL HISTORY: Liver disease with ascites FINDINGS: The risks, benefits and alternatives to the procedure were explained to the patient and in formed consent obtained. The skin and subcutaneous tissues were anesthetized with Lidocaine. Under sonographic guidance an 8 F rench catheter was placed into the right lower quadrant. 7 liters of yellow fluid was removed The patient experienced no immediate complication. IMPRESSION: Paracentesis
[2018-12-09 10:56] VITALS: TEMP 98.7; O2SAT 98
[2018-12-09 10:57] VITALS: BP 117/52
== END 2018-12-09 10:30 | disposition home or self-care (01) ==
LOC: DS 07:42
PROVIDERS: ATTEND Internal Medicine
DX: R18.8 Other ascites (principal); K74.60 Unspecified cirrhosis of liver; K76.0 Fatty (change of) liver, not elsewhere classified
CPT/HCPCS: 96365; 49083; P9047

== ENCOUNTER 2019-01-03 13:32 | Emergency (ER) | payer OTHER, BC ==
--- OUTSIDE RECORDS SUMMARY | 2019-01-03 13:36 | XMS REPORT ---
:1935 [facility] Organization [facility] Address [address] [place] [address] Dr. Black [address] [place] [address] Care Team Providers Name Role Phone KATIE FITZGERALD Roel Unavailable Unavailable HARESH BRUNO Unavailable Unavailable Problems This patient has no known problems. Allergies, Adverse Reactions, Alerts This patient has no known allergies or adverse reactions. Medications This patient has no known medications. Encounters Start End Encounter Admission Attending Care Care Encounter Date/Time Date/Time Type Type Clinicians Facility Department ID 2018-07-14 Inpatient U [facility] MED [id number] 20:48:00 2018-09-30 2018-09-30 Outpatient [facility] [id number] 07:27:00 07:27:00 2018-09-12 2018-09-12 Inpatient E [facility] MED [id number] 11:11:00 09:34:00 2018-09-11 2018-09-11 Outpatient [facility]SE [id number] 06:12:00 06:12:00 2018-08-14 2018-08-14 Outpatient [facility] [id number] 09:41:00 09:41:00 2018-08-07 2018-08-07 Outpatient [facility]SE [id number] 06:48:00 06:48:00 Results Test Description Test Time Test Comments Text Results Atomic Results Result Comments ALPHA FETOPROTEIN (AFP), TUMOR MARKER 2018-12-12 18:53:00 Test Item Value Reference Range Comments ALPHA-FETOPROTEIN (BEAKER) (test kztt=2925) < ng/mL <10.0 HEPATIC FUNCTION [id number] 18:34:00 Test Item Value Reference Range Comments TOTAL PROTEIN (BEAKER) (test rzic=386) 6.3 gm/dL 6.0-8.3 ALBUMIN (BEAKER) (test qlry=1302) 3.2 g/dL 3.5-5.0 BILIRUBIN TOTAL (BEAKER) (test bhtk=264) 0.7 mg/dL 0.2-1.2 BILIRUBIN DIRECT (BEAKER) (test uhyg=373) 0.4 mg/dL 0.1-0.5 ALKALINE PHOSPHATASE (BEAKER) (test uqth=122) 146 U/L 40-150 AST (SGOT) (BEAKER) (test nkqt=392) 29 U/L 5-34 ALT (SGPT) (BEAKER) (test fmvj=414) 23 U/L 6-55 BASIC METABOLIC [id number] 18:34:00 Test Item Value Reference Range Comments SODIUM (BEAKER) (test 136 meq/L 136-145 dznv=423) POTASSIUM (BEAKER) (test 3.4 meq/L 3.5-5.1 uacg=382) CHLORIDE (BEAKER) (test 101 meq/L 98-107 wvam=353) CO2 (BEAKER) (test 27 meq/L 22-29 frgh=682) BLOOD UREA NITROGEN 20 mg/dL 7-21 (BEAKER) (test nrts=094) CREATININE (BEAKER) (test 1.06 mg/dL 0.57-1.25 xyjo=077) GLUCOSE RANDOM (BEAKER) 246 mg/dL 70-105 (test jgbk=585) CALCIUM (BEAKER) (test 9.1 mg/dL 8.4-10.2 yxal=917) EGFR (BEAKER) (test 67 mL/min/1.73 sq m ESTIMATED GFR IS NOT otie=0704) ACCURATE CREATININE CLEARANCE IN PREDICTING GLOMERULAR FILTRATION RATE. ESTIMATED GFR IS NOT APPLICABLE FOR DIALYSIS PATIENTS. PROTHROMBIN [id number] 17:50:00 Test Item Value Reference Range Comments PROTIME (BEAKER) (test hdsp=770) 15.4 seconds 11.9-14.2 INR (BEAKER) (test pdyc=239) 1.3 <=5.9 Effective 07/17/2018: PT Reference Range ChangeNew: 11.9-14.2 Previous: 11.7- 14.7RECOMMENDED COUMADIN/WARFARIN INR THERAPY RANGESSTANDARD DOSE: 2.0-3.0 Includes: PROPHYLAXIS for venous thrombosis, systemic embolization; TREATMENT for venous thrombosis and/or pulmonary embolus.HIGH RISK: Target INR is2.5-3.5 for patients wiht mechanical heart valves.CBC W/PLT COUNT & AUTO [id number] 17:39:00 Test Item Value Reference Range Comments WHITE BLOOD CELL COUNT (BEAKER) (test uaqm=126) 7.8 K/ L 3.5-10.5 RED BLOOD CELL COUNT (BEAKER) (test vyfe=293) 4.12 M/ L 4.63-6.08 HEMOGLOBIN (BEAKER) (test iote=077) 11.5 GM/DL 13.7-17.5 HEMATOCRIT (BEAKER) (test ucbu=775) 36.5 % 40.1-51.0 MEAN CORPUSCULAR VOLUME (BEAKER) (test asch=413) 88.6 fL 79.0-92.2 MEAN CORPUSCULAR HEMOGLOBIN (BEAKER) (test 27.9 pg 25.7-32.2 udef=334) MEAN CORPUSCULAR HEMOGLOBIN CONC (BEAKER) (test 31.5 GM/DL 32.3-36.5 lyyg=136) RED CELL DISTRIBUTION WIDTH (BEAKER) (test 20.7 % 11.6-14.4 pekg=765) PLATELET COUNT (BEAKER) (test wqgo=978) 238 K/CU MM 150-450 MEAN PLATELET VOLUME (BEAKER) (test kwpt=638) 11.2 fL 9.4-12.4 NUCLEATED RED BLOOD CELLS (BEAKER) (test 0 /100 WBC 0-0 gnwb=479) NEUTROPHILS RELATIVE PERCENT (BEAKER) (test 60 % nsgs=152) LYMPHOCYTES RELATIVE PERCENT (BEAKER) (test 25 % vfnh=759) MONOCYTES RELATIVE PERCENT (BEAKER) (test 12 % tqfr=558) EOSINOPHILS RELATIVE PERCENT (BEAKER) (test 2 % zjdp=084) BASOPHILS RELATIVE PERCENT (BEAKER) (test 1 % iwnm=719) NEUTROPHILS ABSOLUTE COUNT (BEAKER) (test 4.68 K/ L 1.78-5.38 qblg=043) LYMPHOCYTES ABSOLUTE COUNT (BEAKER) (test 1.98 K/ L 1.32-3.57 tgvz=803) MONOCYTES ABSOLUTE COUNT (BEAKER) (test 0.93 K/ L 0.30-0.82 nvfi=994) EOSINOPHILS ABSOLUTE COUNT (BEAKER) (test 0.14 K/ L 0.04-0.54 jyof=330) BASOPHILS ABSOLUTE COUNT (BEAKER) (test 0.05 K/ L 0.01-0.08 moix=942) IMMATURE GRANULOCYTES-RELATIVE PERCENT (BEAKER) 1 % 0-1 (test znpn=6245) BLOOD [id number] 08:00:00 Test Item Value Reference Range Comments CULTURE (BEAKER) (test njow=4175) No growth in 5 days BLOOD [id number] 08:00:00 Test Item Value Reference Range Comments CULTURE (BEAKER) (test suqz=5358) No growth in 5 days U/S, [id number] 17:55:00Labs to be ordered:->Other (please add comment)cell countReason for exam:->diagnostic and therapeutic para for cirrhotic ptaient coming in with abd pain and distension.FINAL REPORT Ultrasound guided paracentesis Clinical History: Ascites. Sedation : None. Net Programmer Analyst: Jenniffer Duran PA-C Supervising Physician: Jose Alejandro Palmer MD Building Analyst/Supervisor: None. Estimated Blood Loss: < 1 mL. Specimen: 5800 mL of clear yellow fluid, samples sent to laboratory. Technique: Informed consent was obtained. The risks of pain, bleeding, infection, bowel perforation, injury to adjacent structures, and adverse medication reactions were discussed with the patient. After informed consent was obtained, the patient's abdomen was scanned. The right lower quadrant of the abdomen was selected for paracentesis. After the largest fluid pocket area was marked, and the anterior abdominal wall was evaluated with color Doppler to exclude presence of blood vessels traversing the area, the skin was prepped and draped in the usual sterile manner. After local anesthesia was achieved with lidocaine, a 5 Hungarian one-step catheter was advanced into the peritoneal cavity under ultrasound guidance. After completion of drainage, the catheter was removed. There was no evidence of complication. Impression:Successful ultrasound guided paracentesis. Signed: Jose Alejandro Palmer MDReport Verified Date/ Time: 11/20/2018 17:55:49 Reading Location: [facility] [id number] Ultrasound Reading Room POCT-GLUCOSE [id number] 13:27:00 Test Item Value Reference Range Comments POC-GLUCOSE METER (BEAKER) 250 mg/dL 70-110 TESTED AT [address] (test dywo=4567) [facility] [address] STOOL CULTURE + SHIGA [id number] 12:42:00 Test Item Value Reference Range Comments CULTURE (BEAKER) (test No Salmonella, Shigella or cqws=8530) Campylobacter isolated STOOL PATH [id number] 12:42:00 Test Item Value Reference Range Comments PATHOGEN EXAM CHARGED (BEAKER) (test xzyh=0713) Done U/S, ABDOMINAL, [id number] 09:32:00Reason for exam:->new dx cirrhosis. with doppler pleaseFINAL REPORT TECHNIQUE: Grayscale ultrasound of the abdomen with color Doppler and spectral Doppler ultrasound of the portal/hepatic vasculature. INDICATION: 83-year-old man withcirrhosis. COMPARISON: None. FINDINGS: LIVER: The liver is normal in size and echogenicity with nodular contour. No focal liver lesions. HEPATIC VASCULATURE: Main portal vein measures 0.7 cm in diameter. Portal veins are patent with normal waveform and directionality. Flow velocity in the main portalvein is within normal limits. The hepatic arteries are patent with normal flow velocities, resistiveindices, and waveforms. The hepatic veins and confluence are patent. BILIARY:Gallbladder: Prior cholecystectomy.Common bile duct measures 0.5 cm, within normal limits. No intrahepatic biliary ductal dilatation. Pneumobilia. PANCREAS: The pancreas is not clearly visualized due to overlying bowel gas. SPLEEN: No splenomegaly. PERITONEUM: Small volume ascites. KIDNEYS: Both kidneys are normal in size. No hydronephrosis. No sonographically evident solid mass lesion. MIDLINE VASCULATURE: The visualized inferior vena cava is patent. The maximum visualized aortic diameter is 2.3 cm. Splenic artery and vein are patent. OTHER FINDINGS: Trace bilateral pleural effusions. IMPRESSION:Cirrhosis. No focal liver lesion. Unremarkable Doppler evaluation of the hepatic and portal vasculature. Small volume ascites. Pneumobilia, likely related to prior procedure. Signed: Iliana Fordort Verified Date/Time: 11/20/2018 09:32:31 Reading Location: [address] Radiology Reading Room POCT-GLUCOSE [id number] 08:21:00 Test Item Value Reference Range Comments POC-GLUCOSE METER ([employer] TechnologiesAKER) 156 mg/dL 70-[address] [facility] [address] (test ooja=6978) [facility] [address] [id number] 04:25:00 Test Item Value Reference Range Comments PHOSPHORUS (BEAKER) (test qkzc=218) 2.8 mg/dL 2.3-4.7 [id number] 04:25:00 Test Item Value Reference Range Comments MAGNESIUM (BEAKER) (test woig=074) 1.8 mg/dL 1.6-2.6 BASIC METABOLIC [id number] 04:25:00 Test Item Value Reference Range Comments SODIUM (BEAKER) (test 134 meq/L 136-145 bhhr=077) POTASSIUM (BEAKER) (test 3.3 meq/L 3.5-5.1 zlwx=293) CHLORIDE (BEAKER) (test 103 meq/L 98-107 uyig=405) CO2 (BEAKER) (test 22 meq/L 22-29 xpxb=992) BLOOD UREA NITROGEN 34 mg/dL 7-21 (BEAKER) (test wzen=496) CREATININE (BEAKER) (test 1.26 mg/dL 0.57-1.25 ukbg=452) GLUCOSE RANDOM (BEAKER) 174 mg/dL 70-105 (test jlzf=190) CALCIUM (BEAKER) (test 8.9 mg/dL 8.4-10.2 cfij=227) EGFR (BEAKER) (test 55 mL/min/1.73 sq m ESTIMATED GFR IS NOT fycm=8635) ACCURATE CREATININE CLEARANCE IN PREDICTING GLOMERULAR FILTRATION RATE. ESTIMATED GFR IS NOT APPLICABLE FOR DIALYSIS PATIENTS. HEPATIC FUNCTION [id number] 04:25:00 Test Item Value Reference Range Comments TOTAL PROTEIN (BEAKER) (test qoeg=995) 5.8 gm/dL 6.0-8.3 ALBUMIN (BEAKER) (test yfgo=2682) 2.6 g/dL 3.5-5.0 BILIRUBIN TOTAL (BEAKER) (test odkg=453) 0.3 mg/dL 0.2-1.2 BILIRUBIN DIRECT (BEAKER) (test utjb=133) 0.2 mg/dL 0.1-0.5 ALKALINE PHOSPHATASE (BEAKER) (test jsdh=800) 111 U/L 40-150 AST (SGOT) (BEAKER) (test rplj=626) 18 U/L 5-34 ALT (SGPT) (BEAKER) (test ttmt=995) 10 U/L 6-55 PROTHROMBIN [id number] 03:40:00 Test Item Value Reference Range Comments PROTIME (BEAKER) (test kztm=086) 15.8 seconds 11.9-14.2 INR (BEAKER) (test emnz=950) 1.3 <=5.9 Effective 07/17/2018: PT Reference Range ChangeNew: 11.9-14.2 Previous: 11.7- 14.7RECOMMENDED COUMADIN/WARFARIN INR THERAPY RANGESSTANDARD DOSE: 2.0-3.0 Includes: PROPHYLAXIS for venous thrombosis, systemic embolization; TREATMENT for venous thrombosis and/or pulmonary embolus.HIGH RISK: Target INR is2.5-3.5 for patients wiht mechanical heart valves.CBC W/PLT COUNT & AUTO [id number] 03:31:00 Test Item Value Reference Range Comments WHITE BLOOD CELL COUNT (BEAKER) (test bjpe=859) 6.2 K/ L 3.5-10.5 RED BLOOD CELL COUNT (BEAKER) (test xvoc=942) 3.73 M/ L 4.63-6.08 HEMOGLOBIN (BEAKER) (test wqck=649) 10.3 GM/DL 13.7-17.5 HEMATOCRIT (BEAKER) (test bcik=906) 31.7 % 40.1-51.0 MEAN CORPUSCULAR VOLUME (BEAKER) (test ammp=629) 85.0 fL 79.0-92.2 MEAN CORPUSCULAR HEMOGLOBIN (BEAKER) (test 27.6 pg 25.7-32.2 lmdf=140) MEAN CORPUSCULAR HEMOGLOBIN CONC (BEAKER) (test 32.5 GM/DL 32.3-36.5 uuyl=856) RED CELL DISTRIBUTION WIDTH (BEAKER) (test 17.7 % 11.6-14.4 xskh=912) PLATELET COUNT (BEAKER) (test etzo=186) 221 K/CU MM 150-450 MEAN PLATELET VOLUME (BEAKER) (test maer=538) 10.9 fL 9.4-12.4 NUCLEATED RED BLOOD CELLS (BEAKER) (test 0 /100 WBC 0-0 kvlc=552) NEUTROPHILS RELATIVE PERCENT (BEAKER) (test 55 % cqow=337) LYMPHOCYTES RELATIVE PERCENT (BEAKER) (test 28 % yvbk=516) MONOCYTES RELATIVE PERCENT (BEAKER) (test 13 % ykyy=014) EOSINOPHILS RELATIVE PERCENT (BEAKER) (test 3 % xzan=748) BASOPHILS RELATIVE PERCENT (BEAKER) (test 1 % gdce=966) NEUTROPHILS ABSOLUTE COUNT (BEAKER) (test 3.41 K/ L 1.78-5.38 cnfy=702) LYMPHOCYTES ABSOLUTE COUNT (BEAKER) (test 1.70 K/ L 1.32-3.57 rgua=548) MONOCYTES ABSOLUTE COUNT (BEAKER) (test 0.79 K/ L 0.30-0.82 ellx=051) EOSINOPHILS ABSOLUTE COUNT (BEAKER) (test 0.20 K/ L 0.04-0.54 etqa=394) BASOPHILS ABSOLUTE COUNT (BEAKER) (test 0.07 K/ L 0.01-0.08 lajn=459) IMMATURE GRANULOCYTES-RELATIVE PERCENT (BEAKER) 0 % 0-1 (test egmz=0371) POCT-GLUCOSE [id number] 20:31:00 Test Item Value Reference Range Comments POC-GLUCOSE METER (BEAKER) 193 mg/dL 70-[address] [facility] [address] [facility] (test hpss=1892) [facility] [address] BODY FLUID CELL COUNT WITH [id number] 17:35:00 Test Item Value Reference Range Comments APPEARANCE FLUID (BEAKER) (test oove=571) Clear Clear COLOR FLUID (BEAKER) (test revg=963) Straw Colorless, Straw RBC FLUID (BEAKER) (test asuz=860) 728 /cu mm <=1 ADJUSTED WBC FLUID (BEAKER) (test ufvj=0198) 85 /cu mm <=5 LINING CELLS (BEAKER) (test bfsp=2764) 4 /cu mm <=1 NEUTROPHILS FLUID (BEAKER) (test mnwt=9881) 15 % LYMPHS FLUID (BEAKER) (test steo=498) 45 % MONO/MACROPHAGE FLUID (BEAKER) (test jluc=032) 40 % EOSINOPHILS FLUID (BEAKER) (test dylb=352) 0 % BASO FLUID (BEAKER) (test pblw=960) 0 % CONTAINER BODY FLUID (BEAKER) (test ojjw=9856) EDTA Tube POCT-GLUCOSE [id number] 16:48:00 Test Item Value Reference Range Comments POC-GLUCOSE METER (BEAKER) 104 mg/dL 70-110 TESTED AT [address] (test gdqk=4757) [place] [id number] 14:29:00 Test Item Value Reference Range Comments FERRITIN (BEAKER) (test lmqh=288) 119 ng/mL 5-275 SHIGA TOXIN [id number] 14:02:00 Test Item Value Reference Range Comments SHIGA TOXIN 1 (BEAKER) (test nnvb=2764) Not detected Not detected SHIGA TOXIN 2 (BEAKER) (test zrej=9967) Not detected Not detected IRON, TIBC, % SAT. (WITHOUT FERRITIN)2018-11-19 14:00:00 Test Item Value Reference Range Comments IRON (BEAKER) (test sory=792) 47.0 ug/dL 40.0-160.0 TOTAL IRON BINDING CAPACITY (BEAKER) (test 231 ug/dL 250-450 xklv=021) IRON % SATURATION (2) (BEAKER) (test laft=7808) 20 % 20-55 POCT-GLUCOSE [id number] 12:35:00 Test Item Value Reference Range Comments POC-GLUCOSE METER (BEAKER) 154 mg/dL 70-110 TESTED AT [address] (test kusr=3161) [place] [address] POCT-GLUCOSE [id number] 12:35:00 Test Item Value Reference Range Comments POC-GLUCOSE METER (BEAKER) 186 mg/dL 70-110 TESTED AT [address] (test ikhx=5631) [place] [address] ANTI-NUCLEAR ANTIBODY (RANJANA)2018-11-19 10:03:00 Test Item Value Reference Range Comments ANTI-NUCLEAR ANTIBODY (RANJANA) (BEAKER) (test Negative Negative sloj=830) Test performed by IFA method.Test performed by IFA method.[id number] 05:56:00 Test Item Value Reference Range Comments PHOSPHORUS (BEAKER) (test xtib=041) 3.3 mg/dL 2.3-4.7 [id number] 05:56:00 Test Item Value Reference Range Comments MAGNESIUM (BEAKER) (test xezq=165) 1.8 mg/dL 1.6-2.6 BASIC METABOLIC [id number] 05:56:00 Test Item Value Reference Range Comments SODIUM (BEAKER) (test 133 meq/L 136-145 ekgl=811) POTASSIUM (BEAKER) (test 3.6 meq/L 3.5-5.1 xgim=310) CHLORIDE (BEAKER) (test 101 meq/L 98-107 imnj=084) CO2 (BEAKER) (test 22 meq/L 22-29 kjtn=711) BLOOD UREA NITROGEN 39 mg/dL 7-21 (BEAKER) (test hjbc=545) CREATININE (BEAKER) (test 1.59 mg/dL 0.57-1.25 uefm=956) GLUCOSE RANDOM (BEAKER) 190 mg/dL 70-105 (test xsmr=739) CALCIUM (BEAKER) (test 9.0 mg/dL 8.4-10.2 xjln=921) EGFR (BEAKER) (test 42 mL/min/1.73 sq m ESTIMATED GFR IS NOT stsj=5500) ACCURATE CREATININE CLEARANCE IN PREDICTING GLOMERULAR FILTRATION RATE. ESTIMATED GFR IS NOT APPLICABLE FOR DIALYSIS PATIENTS. HEPATIC FUNCTION [id number] 05:56:00 Test Item Value Reference Range Comments TOTAL PROTEIN (BEAKER) (test iiud=038) 6.1 gm/dL 6.0-8.3 ALBUMIN (BEAKER) (test wqti=2900) 2.8 g/dL 3.5-5.0 BILIRUBIN TOTAL (BEAKER) (test fzdt=160) 0.3 mg/dL 0.2-1.2 BILIRUBIN DIRECT (BEAKER) (test frck=178) 0.2 mg/dL 0.1-0.5 ALKALINE PHOSPHATASE (BEAKER) (test qfmy=739) 117 U/L 40-150 AST (SGOT) (BEAKER) (test swif=482) 15 U/L 5-34 ALT (SGPT) (BEAKER) (test dktl=363) 10 U/L 6-55 PROTHROMBIN [id number] 05:09:00 Test Item Value Reference Range Comments PROTIME (BEAKER) (test oxzr=031) 15.2 seconds 11.9-14.2 INR (BEAKER) (test inwb=113) 1.3 <=5.9 Effective 07/17/2018: PT Reference Range ChangeNew: 11.9-14.2 Previous: 11.7- 14.7RECOMMENDED COUMADIN/WARFARIN INR THERAPY RANGESSTANDARD DOSE: 2.0-3.0 Includes: PROPHYLAXIS for venous thrombosis, systemic embolization; TREATMENT for venous thrombosis and/or pulmonary embolus.HIGH RISK: Target INR is2.5-3.5 for patients wiht mechanical heart valves.CBC W/PLT COUNT & AUTO [id number] 05:02:00 Test Item Value Reference Range Comments WHITE BLOOD CELL COUNT (BEAKER) (test jkbz=994) 8.7 K/ L 3.5-10.5 RED BLOOD CELL COUNT (BEAKER) (test sfkf=206) 3.86 M/ L 4.63-6.08 HEMOGLOBIN (BEAKER) (test jfzp=775) 10.4 GM/DL 13.7-17.5 HEMATOCRIT (BEAKER) (test pabv=232) 32.7 % 40.1-51.0 MEAN CORPUSCULAR VOLUME (BEAKER) (test heas=923) 84.7 fL 79.0-92.2 MEAN CORPUSCULAR HEMOGLOBIN (BEAKER) (test 26.9 pg 25.7-32.2 kjxc=015) MEAN CORPUSCULAR HEMOGLOBIN CONC (BEAKER) (test 31.8 GM/DL 32.3-36.5 gfga=932) RED CELL DISTRIBUTION WIDTH (BEAKER) (test 17.4 % 11.6-14.4 krjs=118) PLATELET COUNT (BEAKER) (test fvvf=454) 244 K/CU MM 150-450 MEAN PLATELET VOLUME (BEAKER) (test zygr=057) 11.1 fL 9.4-12.4 NUCLEATED RED BLOOD CELLS (BEAKER) (test 0 /100 WBC 0-0 pgzc=120) NEUTROPHILS RELATIVE PERCENT (BEAKER) (test 59 % dtmv=672) LYMPHOCYTES RELATIVE PERCENT (BEAKER) (test 23 % brnk=574) MONOCYTES RELATIVE PERCENT (BEAKER) (test 14 % ttzh=033) EOSINOPHILS RELATIVE PERCENT (BEAKER) (test 3 % fdbr=525) BASOPHILS RELATIVE PERCENT (BEAKER) (test 1 % brxc=565) NEUTROPHILS ABSOLUTE COUNT (BEAKER) (test 5.10 K/ L 1.78-5.38 gyki=402) LYMPHOCYTES ABSOLUTE COUNT (BEAKER) (test 2.04 K/ L 1.32-3.57 roaz=828) MONOCYTES ABSOLUTE COUNT (BEAKER) (test 1.26 K/ L 0.30-0.82 rlwi=007) EOSINOPHILS ABSOLUTE COUNT (BEAKER) (test 0.22 K/ L 0.04-0.54 ctwy=687) BASOPHILS ABSOLUTE COUNT (BEAKER) (test 0.07 K/ L 0.01-0.08 wijc=612) IMMATURE GRANULOCYTES-RELATIVE PERCENT (BEAKER) 0 % 0-1 (test jftm=7022) POCT-GLUCOSE [id number] 21:19:00 Test Item Value Reference Range Comments POC-GLUCOSE METER (BEAKER) 193 mg/dL 70-110 TESTED AT [address] (test myco=9754) [place] [address] C. DIFFICILE GDH [id number] 19:42:00 Test Item Value Reference Range Comments CDT TOXIN (test Negative Negative qaed=[id number]) CDT GDH ANTIGEN (test Negative Negative No indication of Clostridium bxid=[id number]) difficile infection and no colonization. Discontinue enteric isolation and therapy. Testing performed by [employer] Rapid Cassette Assay. For GDH, published sensitivity of the assay is 98.7% compared to cytotoxicity testing. For Toxin AB, published sensitivity is 87.8% and specificity 99.4% compared to cytotoxicity testing.Verification of kit performance was done by the [facility] prior to clinical use.POCT-GLUCOSE [id number] 18:07:00 Test Item Value Reference Range Comments POC-GLUCOSE METER (BEAKER) 134 mg/dL 70-110 TESTED AT [address] (test dgbw=0203) [place] [address] RAD, CHEST, 2 [id number] 13:37:00Reason for exam:->evaluate lungs for effusionFINAL REPORT EXAM: Frontal and lateral chest radiograph. 3 total images. HISTORY PROVIDED: Evaluate lungs for effusion COMPARISON: None available IMPRESSION:The lungs are hyperinflated with flattening of the diaphragm compatible with obstructive physiology. There is blunting of the bilateral posterior costophrenic angles compatible with small pleural effusions versus pleural thickening/scarring. Bibasilar opacities likely represent atelectasis or scarring. No discernible pneumothorax. The cardiac silhouette is within normal limits for size. Postsurgical changes are noted in the mediastinum with sternotomy wires noted. There is atherosclerotic calcification of the aorta. No acute osseous abnormality. Degenerative changes of the spine are noted. Signed: Peter Kern MDReport Verified Date/Time: 11/18/2018 13:37:10 Reading Location: [facility] Reading Room POCT- GLUCOSE [id number] 12:08:00 Test Item Value Reference Range Comments POC-GLUCOSE METER (BEAKER) 151 mg/dL 70-110 TESTED AT [address] (test zmnk=8563) [facility] [address] POCT-GLUCOSE [id number] 08:44:00 Test Item Value Reference Range Comments POC-GLUCOSE METER (BEAKER) 153 mg/dL 70-110 TESTED AT [address] (test ufhe=8564) [place] [id number] HEMOGLOBIN [id number] 08:17:00 Test Item Value Reference Range Comments HEMOGLOBIN A1C (BEAKER) (test lmkf=216) 10.9 % 4.3-6.1 URINALYSIS W/ REFLEX URINE [id number] 06:54:00 Test Item Value Reference Range Comments COLOR (BEAKER) (test illg=040) Yellow CLARITY (BEAKER) (test ycvm=934) Hazy SPECIFIC GRAVITY UA (BEAKER) (test tzqe=232) 1.015 1.001-1.035 PH UA (BEAKER) (test hjho=572) 5.0 5.0-8.0 PROTEIN UA (BEAKER) (test keew=676) 20 mg/dL Negative GLUCOSE UA (BEAKER) (test lbzu=361) >1000 mg/dL Negative KETONES UA (BEAKER) (test eyhf=266) Negative Negative BILIRUBIN UA (BEAKER) (test slgf=693) Negative Negative BLOOD UA (BEAKER) (test jyaq=380) Negative Negative NITRITE UA (BEAKER) (test tkdg=658) Negative Negative LEUKOCYTE ESTERASE UA (BEAKER) (test iaam=954) Large Negative UROBILINOGEN UA (BEAKER) (test fuap=939) 0.2 mg/dL 0.2-1.0 RBC UA (BEAKER) (test ubbc=165) 2 /HPF WBC UA (BEAKER) (test licr=720) 12 /HPF BACTERIA (BEAKER) (test lomo=557) Rare SQUAMOUS EPITHELIAL (BEAKER) (test mfdf=084) 11 /HPF HYALINE CASTS (BEAKER) (test qjjk=084) 3 /LPF SOURCE(BEAKER) (test dait=4807) HEPATITIS B [id number] 05:07:00 Test Item Value Reference Range Comments HEPATITIS B CORE TOTAL ANTIBODY (BEAKER) (test Nonreactive Nonreactive ldsg=291) HEPATITIS B SURFACE ANTIBODY (BEAKER) (test < mIU/mL <8.0 ctcc=135) HEPATITIS B SURFACE ANTIGEN (2) (BEAKER) (test Nonreactive Nonreactive mlvh=9430) HEPATITIS C [id number] 04:53:00 Test Item Value Reference Range Comments HEPATITIS C ANTIBODY (BEAKER) (test nuqt=578) Nonreactive Nonreactive TSH/FREE T4 IF [id number] 04:53:00 Test Item Value Reference Range Comments THYROID STIMULATING HORMONE (BEAKER) (test 3.05 uIU/mL 0.35-4.94 petz=141) [id number] 04:40:00 Test Item Value Reference Range Comments PROCALCITONIN (BEAKER) (test oyfs=7539) 0.07 ng/mL <0.05 SEPSIS RISK (ng/mL)Low: 0.05-0.50Intermediate: 0.51-2.00High: & gt;=[id number] 04:38:00 Test Item Value Reference Range Comments AMMONIA (BEAKER) (test wzuo=844) 20 mol/L 18-72 [id number] 04:29:00 Test Item Value Reference Range Comments PHOSPHORUS (BEAKER) (test yriq=955) 4.2 mg/dL 2.3-4.7 [id number] 04:29:00 Test Item Value Reference Range Comments MAGNESIUM (BEAKER) (test yeit=288) 1.7 mg/dL 1.6-2.6 BASIC METABOLIC [id number] 04:29:00 Test Item Value Reference Range Comments SODIUM (BEAKER) (test 135 meq/L 136-145 esuv=223) POTASSIUM (BEAKER) (test 3.7 meq/L 3.5-5.1 vgbs=495) CHLORIDE (BEAKER) (test 101 meq/L 98-107 szep=358) CO2 (BEAKER) (test 23 meq/L 22-29 nroj=539) BLOOD UREA NITROGEN 37 mg/dL 7-21 (BEAKER) (test wlut=567) CREATININE (BEAKER) (test 1.77 mg/dL 0.57-1.25 infu=438) GLUCOSE RANDOM (BEAKER) 165 mg/dL 70-105 (test slzj=146) CALCIUM (BEAKER) (test 9.0 mg/dL 8.4-10.2 tdiu=057) EGFR (BEAKER) (test 37 mL/min/1.73 sq m ESTIMATED GFR IS NOT vpza=6526) ACCURATE CREATININE CLEARANCE IN PREDICTING GLOMERULAR FILTRATION RATE. ESTIMATED GFR IS NOT APPLICABLE FOR DIALYSIS PATIENTS. LIPID [id number] 04:29:00 Test Item Value Reference Range Comments TRIGLYCERIDES (BEAKER) (test yhlb=227) 92 mg/dL CHOLESTEROL (BEAKER) (test ucgx=893) 123 mg/dL HDL CHOLESTEROL (BEAKER) (test erwb=242) 36 mg/dL LDL CHOLESTEROL CALCULATED (BEAKER) (test 69 mg/dL vbim=697) Triglyceride Reference Range: Low Risk <150 Borderline 150- 199 High Risk 200-499 Very High Risk >=500Cholesterol Reference Range: Low Risk <200 Borderline 200-239 High Risk > 240HDL Cholesterol Reference Range: Low Risk >=60 High Risk <40LDL Cholesterol Reference Range: Optimal <100 Near Optimal 100-129 Borderline 130-159 High 160-189 Very High >=190HEPATIC FUNCTION [id number] 04:29:00 Test Item Value Reference Range Comments TOTAL PROTEIN (BEAKER) (test asra=794) 6.0 gm/dL 6.0-8.3 ALBUMIN (BEAKER) (test vtmc=8709) 2.8 g/dL 3.5-5.0 BILIRUBIN TOTAL (BEAKER) (test oofl=876) 0.4 mg/dL 0.2-1.2 BILIRUBIN DIRECT (BEAKER) (test evzr=817) 0.2 mg/dL 0.1-0.5 ALKALINE PHOSPHATASE (BEAKER) (test mwfu=180) 112 U/L 40-150 AST (SGOT) (BEAKER) (test fotf=070) 16 U/L 5-34 ALT (SGPT) (BEAKER) (test hoqr=690) 11 U/L 6-55 [id number] 04:29:00 Test Item Value Reference Range Comments AMYLASE (BEAKER) (test yypc=837) 38 U/L 25-125 [id number] 04:29:00 Test Item Value Reference Range Comments LIPASE (BEAKER) (test ozxq=316) 47 U/L 8-78 LACTIC ACID, [id number] 03:58:00 Test Item Value Reference Range Comments LACTATE BLOOD VENOUS (2) 1.0 mmol/L 0.5-2.2 Specimen slightly hemolyzed (BEAKER) (test qmli=2381) PROTHROMBIN [id number] 03:53:00 Test Item Value Reference Range Comments PROTIME (BEAKER) (test nwss=600) 14.7 seconds 11.9-14.2 INR (BEAKER) (test xigt=339) 1.2 <=5.9 Effective 07/17/2018: PT Reference Range ChangeNew: 11.9-14.2 Previous: 11.7- 14.7RECOMMENDED COUMADIN/WARFARIN INR THERAPY RANGESSTANDARD DOSE: 2.0-3.0 Includes: PROPHYLAXIS for venous thrombosis, systemic embolization; TREATMENT for venous thrombosis and/or pulmonary embolus.HIGH RISK: Target INR is2.5-3.5 for patients wiht mechanical heart valves.CBC W/PLT COUNT & AUTO [id number] 03:49:00 Test Item Value Reference Range Comments WHITE BLOOD CELL COUNT (BEAKER) (test vwxy=004) 10.2 K/ L 3.5-10.5 RED BLOOD CELL COUNT (BEAKER) (test ayyo=615) 3.67 M/ L 4.63-6.08 HEMOGLOBIN (BEAKER) (test dgok=301) 9.9 GM/DL 13.7-17.5 HEMATOCRIT (BEAKER) (test xnbv=480) 31.3 % 40.1-51.0 MEAN CORPUSCULAR VOLUME (BEAKER) (test okom=190) 85.3 fL 79.0-92.2 MEAN CORPUSCULAR HEMOGLOBIN (BEAKER) (test 27.0 pg 25.7-32.2 iaow=968) MEAN CORPUSCULAR HEMOGLOBIN CONC (BEAKER) (test 31.6 GM/DL 32.3-36.5 pptv=333) RED CELL DISTRIBUTION WIDTH (BEAKER) (test 17.5 % 11.6-14.4 ftwx=255) PLATELET COUNT (BEAKER) (test vjei=983) 219 K/CU MM 150-450 MEAN PLATELET VOLUME (BEAKER) (test awtl=506) 10.9 fL 9.4-12.4 NUCLEATED RED BLOOD CELLS (BEAKER) (test 0 /100 WBC 0-0 fedt=875) NEUTROPHILS RELATIVE PERCENT (BEAKER) (test 68 % jrzn=208) LYMPHOCYTES RELATIVE PERCENT (BEAKER) (test 20 % pebo=538) MONOCYTES RELATIVE PERCENT (BEAKER) (test 10 % rvex=039) EOSINOPHILS RELATIVE PERCENT (BEAKER) (test 1 % ushl=804) BASOPHILS RELATIVE PERCENT (BEAKER) (test 1 % axol=687) NEUTROPHILS ABSOLUTE COUNT (BEAKER) (test 6.87 K/ L 1.78-5.38 nxyd=818) LYMPHOCYTES ABSOLUTE COUNT (BEAKER) (test 2.02 K/ L 1.32-3.57 ujcb=498) MONOCYTES ABSOLUTE COUNT (BEAKER) (test 1.04 K/ L 0.30-0.82 ziaq=554) EOSINOPHILS ABSOLUTE COUNT (BEAKER) (test 0.14 K/ L 0.04-0.54 uwus=979) BASOPHILS ABSOLUTE COUNT (BEAKER) (test 0.06 K/ L 0.01-0.08 axgp=867) IMMATURE GRANULOCYTES-RELATIVE PERCENT (BEAKER) 0 % 0-1 (test koxb=8683) POCT-GLUCOSE [id number] 22:57:00 Test Item Value Reference Range Comments POC-GLUCOSE METER (BEAKER) 177 mg/dL 70-[address] [facility] [address] [facility] (test ifal=6674) [facility] [address]
[2019-01-03 15:49] LABS: Absolute Lymphocytes (CBC) 1.8 K/uL (0.7-4.9); Basophils % 0.7 % (0-1.3); Lymphocytes % 21.8 % (15.3-44.8); MPV 9.4 fL (7.6-11.3); RBC Red Blood Cell Count 3.88 M/uL (4.33-5.43)
[2019-01-03] MEDS ORDERED: NA CHLORIDE 0.9% 500 ML ONE (15:55)
[2019-01-03 16:07] LABS: Albumin 2.5 g/dL (3.4-5.0); Bilirubin Direct 0.3 mg/dL (0-0.2); Bilirubin Total 0.6 mg/dL (0.2-1.0); Potassium 3.4 mmol/L (3.5-5.1); Protein, Total 6.8 g/dL (6.4-8.2)
[2019-01-03 17:20] LABS: Anisocytosis 1+; Blood Morphology Comment NOTED (NOT SEEN); Platelet Estimate ADEQ; Poikilocytosis SLIGHT; Urine White Blood Cell Casts OK
--- NOTE | 2019-01-03 18:02 | EDPHYS ---
Physician Documentation [facility] Name: Dirk Arshad Age: 83 yrs Sex: Male : 1935 Arrival Date: 01/03/2019 Time: 13:35 Bed 27 Private MD: Braydon Andres C ED Physician Steven Smith HPI: 01/03 18:18 This 83 yrs old Male presents to ER via Wheelchair with complaints of Rectal kdr Bleeding, Weakness. 18:18 The patient presents to the emergency department with bleeding from the rectum/anus, kdr that is mild. Onset: The symptoms/episode began/occurred this morning. Context: the patient Hx of GI bleeding - has had history of cirrhosis and rectal bleeding. Modifying factors: The symptoms are alleviated by nothing, The symptoms are aggravated by nothing. The patient has experienced similar episodes in the past, a few times. The patient has been recently seen by a physician: the patient's primary care provider. The patinet had one BM this morning that had BRB. None since then. He has little abdominal pain and according to the and patient, he has overall been feeling and doing better with reduction in the size of his abdomen. Historical: - Allergies: 13:44 PENICILLINS; tw2 - Home Meds: 13:44 furosemide 20 mg Oral tab 0.5 tab once daily [Active]; spironolactone 25 mg Oral tab tw2 0.5 tab once daily [Active]; aspirin 81 mg Oral chew 1 tab once daily [Active]; glimepiride 4 mg Oral tab 0.5 tab am and pm [Active]; losartan 25 mg oral tab 1 tab once daily [Active]; carvedilol 3.125 mg oral tab 1 tab 2 times per day [Active]; pantoprazole 40 mg Oral TbEC 1 tab once daily [Active]; finasteride 5 mg oral tab 1 tab once daily [Active]; allopurinol 300 mg Oral tab 1 tab once daily [Active]; gemfibrozil 600 mg Oral tab 1 tab 2 times per day [Active]; atorvastatin 40 mg oral tab 1 tab once daily [Active]; magnesium oxide 400 mg Oral tab 400 mg daily [Active]; Vitamin D-3 with Aloe 120-1,000-10 mg-unit-mg oral tab [Active]; Vitamin B-12 Oral [Active]; Centrum Silver 400-250 mcg oral chew [Active]; - PMHx: 13:44 Diabetes - NIDDM; GERD; Hypertension; Myocardial infarction; Fatty liver; tw2 - Immunization history:: Adult Immunizations. - Social history:: Smoking status: . - Ebola Screening: : Patient denies travel to an Ebola-affected area in the 21 days before illness onset. ROS: 18:18 Constitutional: Negative for fever, chills, and weight loss, Eyes: Negative for injury, kdr pain, redness, and discharge, ENT: Negative for injury, pain, and discharge, Neck: Negative for injury, pain, and swelling, Cardiovascular: Negative for chest pain, palpitations, and edema, Respiratory: Negative for shortness of breath, cough, wheezing, and pleuritic chest pain, Back: Negative for injury and pain, : Negative for injury, bleeding, discharge, and swelling, MS/Extremity: Negative for injury and deformity, Skin: Negative for injury, rash, and discoloration, Neuro: Negative for headache, weakness, numbness, tingling, and seizure activity. Psych: Negative for depression, anxiety, suicide ideation, homicidal ideation, and hallucinations, Allergy/Immunology: Negative for hives, rash, and allergies, Endocrine: Negative for neck swelling, polydipsia, polyuria, polyphagia, and marked weight changes, Hematologic/Lymphatic: Negative for swollen nodes, abnormal bleeding, and unusual bruising. 18:18 Abdomen/GI: Positive for abdominal distension, rectal bleeding. Exam: 18:18 Constitutional: This is a well developed, well nourished patient who is awake, alert, kdr and in no acute distress. Head/Face: Normocephalic, atraumatic. Eyes: Pupils equal round and reactive to light, extra-ocular motions intact. Lids and lashes normal. Conjunctiva and sclera are non-icteric and not injected. Cornea within normal limits. Periorbital areas with no swelling, redness, or edema. Neck: Trachea midline, no thyromegaly or masses palpated, and no cervical lymphadenopathy. Supple, full range of motion without nuchal rigidity, or vertebral point tenderness. No Meningismus. Chest/axilla: Normal chest wall appearance and motion. Nontender with no deformity. No lesions are appreciated. Cardiovascular: Regular rate and rhythm with a normal S1 and S2. No gallops, murmurs, or rubs. Normal PMI, no JVD. No pulse deficits. Respiratory: Lungs have equal breath sounds bilaterally, clear to auscultation and percussion. No rales, rhonchi or wheezes noted. No increased work of breathing, no retractions or nasal flaring. Back: No spinal tenderness. No costovertebral tenderness. Full range of motion. Skin: Warm, dry with normal turgor. Normal color with no rashes, no lesions, and no evidence of cellulitis. MS/ Extremity: Pulses equal, no cyanosis. Neurovascular intact. Full, normal range of motion. Neuro: Awake and alert, GCS 15, oriented to person, place, time, and situation. Cranial nerves II-XII grossly intact. Motor strength 5/5 in all extremities. Sensory grossly intact. Cerebellar exam normal. Normal gait. Psych: Awake, alert, with orientation to person, place and time. Behavior, mood, and affect are within normal limits. 18:18 Abdomen/GI: Inspection: distension, that is moderate, Bowel sounds: active, all quadrants, Palpation: soft, nontender, Rectal exam: Prostate: normal, rectal tone normal, Stool: guaiac negative, hemorrhoid(s), external, without bleeding, without inflammation, without pain. Vital Signs: 13:39 BP 123 / 65; Pulse 92; Resp 17; Temp 98.1(O); Pulse Ox 100% on R/A; Weight 72.57 kg tw2 (R); Pain 0/10; 14:40 BP 112 / 64; Pulse 89; Resp 16; Pulse Ox 97% on R/A; rv 15:41 BP 106 / 63; Pulse 89; Resp 20; Temp 98.0(O); Pulse Ox 99% ; lt1 16:29 BP 109 / 71; Pulse 81; Resp 17; Pulse Ox 97% on R/A; rv 18:50 BP 109 / 57; Pulse 86; Resp 15; Pulse Ox 100% on R/A; rv MDM: 18:01 Patient medically screened. kdr 18:18 Data reviewed: vital signs, nurses notes, lab test result(s), radiologic studies. kdr Counseling: I had a detailed discussion with the patient and/or guardian regarding: the historical points, exam findings, and any diagnostic results supporting the discharge/admit diagnosis, lab results, radiology results, the need for outpatient follow up. 01/03 14:56 Order name: Basic Metabolic Panel [facility] 01/03 14:56 Order name: CBC with Diff; Complete Time: 17:51 [facility] 01/03 14:56 Order name: Creatinine for Radiology; Complete Time: 17:51 [facility] 01/03 14:56 Order name: Hepatic Function; Complete Time: 17:51 [facility] 01/03 14:56 Order name: Lipase; Complete Time: 17:51 [facility] 01/03 14:56 Order name: Basic Metabolic Panel; Complete Time: 17:51 EDMS 01/03 14:56 Order name: IV Saline Lock; Complete Time: 15:27 [facility] 01/03 14:56 Order name: Labs collected and sent; Complete Time: 15:28 [facility] 01/03 15:52 Order name: Occult Blood--Ancillary eb 01/03 17:21 Order name: CBC Smear Scan; Complete Time: 17:51 EDMS Administered Medications: 16:00 Drug: NS 0.9% 500 ml Route: IV; Rate: bolus; Site: left antecubital; rv 16:31 Follow up: IV Status: Completed infusion; IV Intake: 500ml rv Disposition: 01/03/19 18:01 Discharged to Home. Impression: Rectal bleeding. - Condition is Stable. - Discharge Instructions: Weakness, [id number], Rectal Bleeding, [id number]. - Medication Reconciliation Form, Thank You Letter form. - Follow up: Braydon Andres MD; When: 2 - 3 days; Reason: If symptoms return, Further diagnostic work-up, Recheck today's complaints, Continuance of care, Re-evaluation by your physician. - Problem is an acute exacerbation. - Symptoms have improved. Signatures: Dispatcher [employer] EDFL Steven Smith MD MD kdr Felisa Vallejo RN RN tw2 Ken Caballero, YAMIL RN rv Corrections: (The following items were deleted from the chart) 18:51 18:01 01/03/2019 18:01 Discharged to Home. Impression: Rectal bleeding. Condition is rv Stable. Forms are Medication Reconciliation Form, Thank You Letter, Antibiotic Education, Prescription Opioid Use. Follow up: Braydon Andres; When: 2 - 3 days; Reason: If symptoms return, Further diagnostic work-up, Recheck today's complaints, Continuance of care, Re-evaluation by your physician. Problem is an acute exacerbation. Symptoms have improved. kdr
--- NOTE | 2019-01-03 18:02 | ER ---
Nurse's Notes [facility] Name: Dirk Arshad Age: 83 yrs Sex: Male : 1935 Arrival Date: 01/03/2019 Time: 13:35 Bed 27 Private MD: Braydon Andres C Diagnosis: Rectal bleeding Presentation: 01/03 13:37 Presenting complaint: states: he has a fatty liver and they did a paracentesis Oct tw2 21 and he has been weak and had pancreatitis, all over weakness going on for 5 months, and he has bloody stools this morning. Transition of care: patient was not received from another setting of care. 13:37 Method Of Arrival: Wheelchair tw2 13:45 Onset of symptoms was January 03, 2019. Risk Assessment: Do you want to hurt yourself tw2 or someone else?. Initial Sepsis Screen: Does the patient meet any 2 criteria? No. Patient's initial sepsis screen is negative. Does the patient have a suspected source of infection? No. Patient's initial sepsis screen is negative. Care prior to arrival: None. 13:45 Acuity: ELVIRA 3 tw2 Triage Assessment: 13:40 General: Appears in no apparent distress. Behavior is quiet. Pain: Denies pain. GI: tw2 Abdomen is round distended. Derm: Skin is jaundiced. Historical: - Allergies: 13:44 PENICILLINS; tw2 - Home Meds: 13:44 furosemide 20 mg Oral tab 0.5 tab once daily [Active]; spironolactone 25 mg Oral tab tw2 0.5 tab once daily [Active]; aspirin 81 mg Oral chew 1 tab once daily [Active]; glimepiride 4 mg Oral tab 0.5 tab am and pm [Active]; losartan 25 mg oral tab 1 tab once daily [Active]; carvedilol 3.125 mg oral tab 1 tab 2 times per day [Active]; pantoprazole 40 mg Oral TbEC 1 tab once daily [Active]; finasteride 5 mg oral tab 1 tab once daily [Active]; allopurinol 300 mg Oral tab 1 tab once daily [Active]; gemfibrozil 600 mg Oral tab 1 tab 2 times per day [Active]; atorvastatin 40 mg oral tab 1 tab once daily [Active]; magnesium oxide 400 mg Oral tab 400 mg daily [Active]; Vitamin D-3 with Aloe 120-1,000-10 mg-unit-mg oral tab [Active]; Vitamin B-12 Oral [Active]; Centrum Silver 400-250 mcg oral chew [Active]; - PMHx: 13:44 Diabetes - NIDDM; GERD; Hypertension; Myocardial infarction; Fatty liver; tw2 - Immunization history:: Adult Immunizations. - Social history:: Smoking status: . - Ebola Screening: : Patient denies travel to an Ebola-affected area in the 21 days before illness onset. Screenin:39 Abuse screen: Denies threats or abuse. Denies injuries from another. Nutritional rv screening: No deficits noted. Tuberculosis screening: No symptoms or risk factors identified. Fall Risk None identified. Assessment: 14:38 General: Appears in no apparent distress. comfortable, Behavior is calm, cooperative. rv Pain: Denies pain. Neuro: Level of Consciousness is awake, alert, obeys commands, Oriented to person, place, time, situation. Cardiovascular: Patient's skin is warm and dry. Respiratory: Airway is patent. GI: Reports diarrhea, bloody stool. : No signs and/or symptoms were reported regarding the genitourinary system. EENT: No signs and/or symptoms were reported regarding the EENT system. Derm: Skin is intact. Musculoskeletal: No signs and/or symptoms reported regarding the musculoskeletal system. 16:30 Reassessment: Patient appears in no apparent distress at this time. No changes from rv previously documented assessment. Patient and/or family updated on plan of care and expected duration. Pain level reassessed. Patient is alert, oriented x 3, equal unlabored respirations, skin warm/dry/pink. Vital Signs: 13:39 BP 123 / 65; Pulse 92; Resp 17; Temp 98.1(O); Pulse Ox 100% on R/A; Weight 72.57 kg tw2 (R); Pain 0/10; 14:40 BP 112 / 64; Pulse 89; Resp 16; Pulse Ox 97% on R/A; rv 15:41 BP 106 / 63; Pulse 89; Resp 20; Temp 98.0(O); Pulse Ox 99% ; lt1 16:29 BP 109 / 71; Pulse 81; Resp 17; Pulse Ox 97% on R/A; rv 18:50 BP 109 / 57; Pulse 86; Resp 15; Pulse Ox 100% on R/A; rv ED Course: 13:35 Patient arrived in ED. as 13:35 Braydon Andres MD is Private Physician. as 13:44 Arm band placed on. tw2 13:45 Triage completed. tw2 14:40 Patient has correct armband on for positive identification. Bed in low position. Call rv light in reach. Side rails up X 1. Adult w/ patient. Pulse ox on. NIBP on. 14:54 Steven Smith MD is Attending Physician. kdr 15:27 Inserted saline lock: 22 gauge in right antecubital area, using aseptic technique. lt1 15:27 Initial lab(s) drawn, by de, sent to lab. Inserted saline lock: 22 gauge in left lt1 antecubital area, using aseptic technique. 15:28 Basic Metabolic Panel Sent. lt1 15:52 Ken Caballero RN is Primary Nurse. rv 18:00 Braydon Andres MD is Referral Physician. kdr 18:28 No provider procedures requiring assistance completed. IV discontinued, intact, rv bleeding controlled, No redness/swelling at site. Pressure dressing applied. Administered Medications: 16:00 Drug: NS 0.9% 500 ml Route: IV; Rate: bolus; Site: left antecubital; rv 16:31 Follow up: IV Status: Completed infusion; IV Intake: 500ml rv Intake: 16:31 IV: 500ml; Total: 500ml. rv Outcome: 18:01 Discharge ordered by . kdr 18:28 Discharged to home ambulatory, with family. rv 18:28 Condition: good 18:28 Discharge instructions given to patient, Instructed on discharge instructions, follow up and referral plans. Demonstrated understanding of instructions, follow-up care. 18:51 Patient left the ED. rv Signatures: Steven Smith MD MD kdr Anjelica Roger as Felisa Vallejo RN RN tw2 Ken Caballero, YAMIL RN rv Mare [place]wood lt1 Corrections: (The following items were deleted from the chart) 15:27 15:24 Inserted saline lock: lt1 lt1
[2019-01-03 19:27] VITALS: TEMP 98
[2019-01-03 19:30] VITALS: BP 109/57; O2SAT 100
== END 2019-01-03 18:51 | disposition home or self-care (01) ==
LOC: ER 13:32
DX: K62.5 Hemorrhage of anus and rectum (principal); Z88.0 Allergy status to penicillin; E11.9 Type 2 diabetes mellitus without complications; K21.9 Gastro-esophageal reflux disease without esophagitis; I25.2 Old myocardial infarction; I10 Essential (primary) hypertension
CPT/HCPCS: 85025; 80048; 36415; 80076; 83690; 96360; 99284; J7040

== ENCOUNTER 2019-01-09 09:09 | Inpatient (IN) | payer OTHER, BC ==
--- OUTSIDE RECORDS SUMMARY | 2019-01-09 09:12 | XMS REPORT ---
:1935 [facility] Address [address] [place] [address] Dr. Black [address] [place] [id number] Care Team Providers Name Role Phone AMILCAR KATIE Sevilla Unavailable Unavailable HARESH BRUNO Unavailable Unavailable Problems [...] Value Reference Range Comments ALPHA-FETOPROTEIN (BEAKER) (test ckyf=1796) < ng/mL <10.0 HEPATIC FUNCTION [id number] 18:34:00 Test Item Value Reference Range Comments TOTAL PROTEIN (BEAKER) (test qcwe=313) 6.3 gm/dL 6.0-8.3 ALBUMIN (BEAKER) (test lrbg=1862) 3.2 g/dL 3.5-5.0 BILIRUBIN TOTAL (BEAKER) (test vbpl=011) 0.7 mg/dL 0.2-1.2 BILIRUBIN DIRECT (BEAKER) (test mjac=575) 0.4 mg/dL 0.1-0.5 ALKALINE PHOSPHATASE (BEAKER) (test kpwg=110) 146 U/L 40-150 AST (SGOT) (BEAKER) (test dglk=587) 29 U/L 5-34 ALT (SGPT) (BEAKER) (test vqkg=470) 23 U/L 6-55 BASIC METABOLIC [id number] 18:34:00 Test Item Value Reference Range Comments SODIUM (BEAKER) (test 136 meq/L 136-145 mkqt=935) POTASSIUM (BEAKER) (test 3.4 meq/L 3.5-5.1 mwlp=021) CHLORIDE (BEAKER) (test 101 meq/L 98-107 houg=676) CO2 (BEAKER) (test 27 meq/L 22-29 asov=759) BLOOD UREA NITROGEN 20 mg/dL 7-21 (BEAKER) (test tefy=007) CREATININE (BEAKER) (test 1.06 mg/dL 0.57-1.25 ttxj=845) GLUCOSE RANDOM (BEAKER) 246 mg/dL 70-105 (test zqkp=826) CALCIUM (BEAKER) (test 9.1 mg/dL 8.4-10.2 aokc=873) EGFR (BEAKER) (test 67 mL/min/1.73 sq m ESTIMATED GFR IS NOT zzpn=2008) ACCURATE CREATININE CLEARANCE IN PREDICTING GLOMERULAR FILTRATION RATE. ESTIMATED GFR IS NOT APPLICABLE FOR DIALYSIS PATIENTS. PROTHROMBIN [id number] 17:50:00 Test Item Value Reference Range Comments PROTIME (BEAKER) (test lpuw=780) 15.4 seconds 11.9-14.2 INR (BEAKER) (test nfrb=638) 1.3 <=5.9 Effective 07/17/2018: PT Reference Range ChangeNew: 11.9-14.2 Previous: 11.7- 14.7RECOMMENDED COUMADIN/WARFARIN INR THERAPY RANGESSTANDARD DOSE: 2.0-3.0 Includes: PROPHYLAXIS for venous thrombosis, systemic embolization; TREATMENT for venous thrombosis and/or pulmonary embolus.HIGH RISK: Target INR is2.5-3.5 for patients wiht mechanical heart valves.CBC W/PLT COUNT & AUTO [id number] 17:39:00 Test Item Value Reference Range Comments WHITE BLOOD CELL COUNT (BEAKER) (test uijv=912) 7.8 K/ L 3.5-10.5 RED BLOOD CELL COUNT (BEAKER) (test yssb=136) 4.12 M/ L 4.63-6.08 HEMOGLOBIN (BEAKER) (test mner=487) 11.5 GM/DL 13.7-17.5 HEMATOCRIT (BEAKER) (test wqud=261) 36.5 % 40.1-51.0 MEAN CORPUSCULAR VOLUME (BEAKER) (test mhgz=837) 88.6 fL 79.0-92.2 MEAN CORPUSCULAR HEMOGLOBIN (BEAKER) (test 27.9 pg 25.7-32.2 rqpl=609) MEAN CORPUSCULAR HEMOGLOBIN CONC (BEAKER) (test 31.5 GM/DL 32.3-36.5 xucq=228) RED CELL DISTRIBUTION WIDTH (BEAKER) (test 20.7 % 11.6-14.4 ldih=437) PLATELET COUNT (BEAKER) (test talw=573) 238 K/CU MM 150-450 MEAN PLATELET VOLUME (BEAKER) (test qksy=352) 11.2 fL 9.4-12.4 NUCLEATED RED BLOOD CELLS (BEAKER) (test 0 /100 WBC 0-0 mgls=728) NEUTROPHILS RELATIVE PERCENT (BEAKER) (test 60 % fuzi=658) LYMPHOCYTES RELATIVE PERCENT (BEAKER) (test 25 % yiea=635) MONOCYTES RELATIVE PERCENT (BEAKER) (test 12 % znxn=157) EOSINOPHILS RELATIVE PERCENT (BEAKER) (test 2 % nfsq=552) BASOPHILS RELATIVE PERCENT (BEAKER) (test 1 % ufal=521) NEUTROPHILS ABSOLUTE COUNT (BEAKER) (test 4.68 K/ L 1.78-5.38 zuln=488) LYMPHOCYTES ABSOLUTE COUNT (BEAKER) (test 1.98 K/ L 1.32-3.57 kinv=981) MONOCYTES ABSOLUTE COUNT (BEAKER) (test 0.93 K/ L 0.30-0.82 gbcc=079) EOSINOPHILS ABSOLUTE COUNT (BEAKER) (test 0.14 K/ L 0.04-0.54 tull=975) BASOPHILS ABSOLUTE COUNT (BEAKER) (test 0.05 K/ L 0.01-0.08 aydy=530) IMMATURE GRANULOCYTES-RELATIVE PERCENT (BEAKER) 1 % 0-1 (test iwvb=9158) BLOOD [id number] 08:00:00 Test Item Value Reference Range Comments CULTURE (BEAKER) (test hfjl=3697) No growth in 5 days BLOOD [id number] 08:00:00 Test Item Value Reference Range Comments CULTURE (BEAKER) (test vjjs=8616) No growth in 5 days U/S, [id number] 17:55:00Labs to be ordered:->Other (please add comment)cell countReason for exam:->diagnostic and therapeutic para for cirrhotic ptaient coming in with abd pain and distension.FINAL REPORT Ultrasound guided paracentesis Clinical History: Ascites. Sedation : None. Test Fixture Designer: Jenniffer Duran PA-C Supervising Physician: Jose Alejandro Palmer MD Head Track Coach: None. Estimated Blood Loss: < 1 mL. [...] anesthesia was achieved with lidocaine, a 5 Malaysian one-step catheter was advanced into the peritoneal cavity under ultrasound guidance. After completion of drainage, the catheter was removed. There was no evidence of complication. Impression:Successful ultrasound guided paracentesis. Signed: Jose Alejandro Palmer MDReport Verified Date/ Time: 11/20/2018 17:55:49 Reading Location: [address] Ultrasound Reading Room POCT-GLUCOSE [id number] 13:27:00 Test Item Value Reference Range Comments POC-GLUCOSE METER (BEAKER) 250 mg/dL 70-110 TESTED AT [address] (test muyg=8809) [facility] [address] STOOL CULTURE + SHIGA [id number] 12:42:00 Test Item Value Reference Range Comments CULTURE (LANNY) (test No Salmonella, Shigella or jsfx=7427) Campylobacter isolated STOOL PATH [id number] 12:42:00 Test Item Value Reference Range Comments PATHOGEN EXAM CHARGED (LANNY) (test nvvd=5385) Done U/S, ABDOMINAL, [id number] 09:32:00Reason for exam:->new dx cirrhosis. with doppler [...] likely related to prior procedure. Signed: Iliana Ford MDReport Verified Date/Time: 11/20/2018 09:32:31 Reading Location: [address] Radiology Reading Room POCT-GLUCOSE [id number] 08:21:00 Test Item Value Reference Range Comments POC-GLUCOSE METER (LANNY) 156 mg/dL 70-110 TESTED AT [facility] [address] (test qcmc=8437) [place] [address] [id number] 04:25:00 Test Item Value Reference Range Comments PHOSPHORUS (BEAKER) (test zbfv=871) 2.8 mg/dL 2.3-4.7 [id number] 04:25:00 Test Item Value Reference Range Comments MAGNESIUM (BEAKER) (test embq=912) 1.8 mg/dL 1.6-2.6 BASIC METABOLIC [id number] 04:25:00 Test Item Value Reference Range Comments SODIUM (BEAKER) (test 134 meq/L 136-145 lpyk=690) POTASSIUM (BEAKER) (test 3.3 meq/L 3.5-5.1 mtiy=519) CHLORIDE (BEAKER) (test 103 meq/L 98-107 ouec=958) CO2 (BEAKER) (test 22 meq/L 22-29 wqmi=512) BLOOD UREA NITROGEN 34 mg/dL 7-21 (BEAKER) (test soog=854) CREATININE (BEAKER) (test 1.26 mg/dL 0.57-1.25 ojiv=675) GLUCOSE RANDOM (BEAKER) 174 mg/dL 70-105 (test hkji=556) CALCIUM (BEAKER) (test 8.9 mg/dL 8.4-10.2 umbx=200) EGFR (BEAKER) (test 55 mL/min/1.73 sq m ESTIMATED GFR IS NOT gvtm=3036) ACCURATE CREATININE CLEARANCE IN PREDICTING GLOMERULAR FILTRATION RATE. ESTIMATED GFR IS NOT APPLICABLE FOR DIALYSIS PATIENTS. HEPATIC FUNCTION [id number] 04:25:00 Test Item Value Reference Range Comments TOTAL PROTEIN (BEAKER) (test egdc=640) 5.8 gm/dL 6.0-8.3 ALBUMIN (BEAKER) (test yugd=0042) 2.6 g/dL 3.5-5.0 BILIRUBIN TOTAL (BEAKER) (test aexb=220) 0.3 mg/dL 0.2-1.2 BILIRUBIN DIRECT (BEAKER) (test exug=570) 0.2 mg/dL 0.1-0.5 ALKALINE PHOSPHATASE (BEAKER) (test kqol=284) 111 U/L 40-150 AST (SGOT) (BEAKER) (test jiak=015) 18 U/L 5-34 ALT (SGPT) (BEAKER) (test ujwc=920) 10 U/L 6-55 PROTHROMBIN [id number] 03:40:00 Test Item Value Reference Range Comments PROTIME (BEAKER) (test ekac=679) 15.8 seconds 11.9-14.2 INR (BEAKER) (test dhde=746) 1.3 <=5.9 Effective 07/17/2018: PT Reference Range ChangeNew: 11.9-14.2 Previous: 11.7- 14.7RECOMMENDED COUMADIN/WARFARIN INR THERAPY RANGESSTANDARD DOSE: 2.0-3.0 Includes: PROPHYLAXIS for venous thrombosis, systemic embolization; TREATMENT for venous thrombosis and/or pulmonary embolus.HIGH RISK: Target INR is2.5-3.5 for patients wiht mechanical heart valves.CBC W/PLT COUNT & AUTO [id number] 03:31:00 Test Item Value Reference Range Comments WHITE BLOOD CELL COUNT (BEAKER) (test ajil=958) 6.2 K/ L 3.5-10.5 RED BLOOD CELL COUNT (BEAKER) (test wdvi=702) 3.73 M/ L 4.63-6.08 HEMOGLOBIN (BEAKER) (test eeyx=400) 10.3 GM/DL 13.7-17.5 HEMATOCRIT (BEAKER) (test jhcq=309) 31.7 % 40.1-51.0 MEAN CORPUSCULAR VOLUME (BEAKER) (test phvu=030) 85.0 fL 79.0-92.2 MEAN CORPUSCULAR HEMOGLOBIN (BEAKER) (test 27.6 pg 25.7-32.2 ekxd=541) MEAN CORPUSCULAR HEMOGLOBIN CONC (BEAKER) (test 32.5 GM/DL 32.3-36.5 cxor=549) RED CELL DISTRIBUTION WIDTH (BEAKER) (test 17.7 % 11.6-14.4 wfuh=377) PLATELET COUNT (BEAKER) (test jvkn=760) 221 K/CU MM 150-450 MEAN PLATELET VOLUME (BEAKER) (test lptu=015) 10.9 fL 9.4-12.4 NUCLEATED RED BLOOD CELLS (BEAKER) (test 0 /100 WBC 0-0 pnsm=159) NEUTROPHILS RELATIVE PERCENT (BEAKER) (test 55 % jqky=937) LYMPHOCYTES RELATIVE PERCENT (BEAKER) (test 28 % koyy=849) MONOCYTES RELATIVE PERCENT (BEAKER) (test 13 % cqdq=577) EOSINOPHILS RELATIVE PERCENT (BEAKER) (test 3 % tmug=864) BASOPHILS RELATIVE PERCENT (BEAKER) (test 1 % brrc=905) NEUTROPHILS ABSOLUTE COUNT (BEAKER) (test 3.41 K/ L 1.78-5.38 otzh=231) LYMPHOCYTES ABSOLUTE COUNT (BEAKER) (test 1.70 K/ L 1.32-3.57 xaaz=328) MONOCYTES ABSOLUTE COUNT (BEAKER) (test 0.79 K/ L 0.30-0.82 jaem=221) EOSINOPHILS ABSOLUTE COUNT (BEAKER) (test 0.20 K/ L 0.04-0.54 vpmp=424) BASOPHILS ABSOLUTE COUNT (BEAKER) (test 0.07 K/ L 0.01-0.08 abne=327) IMMATURE GRANULOCYTES-RELATIVE PERCENT (BEAKER) 0 % 0-1 (test lrnt=6121) POCT-GLUCOSE [id number] 20:31:00 Test Item Value Reference Range Comments POC-GLUCOSE METER (BEAKER) 193 mg/dL 70-110 TESTED AT [facility] [address] [facility] (test cput=3097) [facility] [address] BODY FLUID CELL COUNT WITH [id number] 17:35:00 Test Item Value Reference Range Comments APPEARANCE FLUID (BEAKER) (test lhlo=566) Clear Clear COLOR FLUID (BEAKER) (test gwtz=495) Straw Colorless, Straw RBC FLUID (BEAKER) (test vpww=136) 728 /cu mm <=1 ADJUSTED WBC FLUID (BEAKER) (test kwsc=6163) 85 /cu mm <=5 LINING CELLS (BEAKER) (test gfbv=9877) 4 /cu mm <=1 NEUTROPHILS FLUID (BEAKER) (test sfwu=9970) 15 % LYMPHS FLUID (BEAKER) (test hjpx=457) 45 % MONO/MACROPHAGE FLUID (BEAKER) (test lhaj=147) 40 % EOSINOPHILS FLUID (BEAKER) (test mfuw=337) 0 % BASO FLUID (BEAKER) (test glrh=215) 0 % CONTAINER BODY FLUID (BEAKER) (test tgej=9695) EDTA Tube POCT-GLUCOSE [id number] 16:48:00 Test Item Value Reference Range Comments POC-GLUCOSE METER (BEAKER) 104 mg/dL 70-110 TESTED AT [address] (test zakj=3576) [place] [id number] 14:29:00 Test Item Value Reference Range Comments FERRITIN (BEAKER) (test nvyb=963) 119 ng/mL 5-275 SHIGA TOXIN [id number] 14:02:00 Test Item Value Reference Range Comments SHIGA TOXIN 1 (BEAKER) (test ckvp=9170) Not detected Not detected SHIGA TOXIN 2 (BEAKER) (test iqyf=3753) Not detected Not detected IRON, TIBC, % SAT. (WITHOUT FERRITIN)2018-11-19 14:00:00 Test Item Value Reference Range Comments IRON (BEAKER) (test xuwe=375) 47.0 ug/dL 40.0-160.0 TOTAL IRON BINDING CAPACITY (BEAKER) (test 231 ug/dL 250-450 akcj=109) IRON % SATURATION (2) (BEAKER) (test ioba=6007) 20 % 20-55 POCT-GLUCOSE [id number] 12:35:00 Test Item Value Reference Range Comments POC-GLUCOSE METER (BEAKER) 154 mg/dL 70-110 TESTED AT [address] (test flxs=7019) [place] [address] POCT-GLUCOSE [id number] 12:35:00 Test Item Value Reference Range Comments POC-GLUCOSE METER (BEAKER) 186 mg/dL 70-110 TESTED AT [address] (test ldnh=9190) [place] [address] ANTI-NUCLEAR ANTIBODY (RANJANA)2018-11-19 10:03:00 Test Item Value Reference Range Comments ANTI-NUCLEAR ANTIBODY (RANJANA) (BEAKER) (test Negative Negative oedq=711) Test performed by IFA method.Test performed by IFA method.[id number] 05:56:00 Test Item Value Reference Range Comments PHOSPHORUS (BEAKER) (test mjgi=493) 3.3 mg/dL 2.3-4.7 [id number] 05:56:00 Test Item Value Reference Range Comments MAGNESIUM (BEAKER) (test bkcp=567) 1.8 mg/dL 1.6-2.6 BASIC METABOLIC [id number] 05:56:00 Test Item Value Reference Range Comments SODIUM (BEAKER) (test 133 meq/L 136-145 rixw=717) POTASSIUM (BEAKER) (test 3.6 meq/L 3.5-5.1 vcuy=771) CHLORIDE (BEAKER) (test 101 meq/L 98-107 iahj=206) CO2 (BEAKER) (test 22 meq/L 22-29 kdmy=600) BLOOD UREA NITROGEN 39 mg/dL 7-21 (BEAKER) (test nlhz=523) CREATININE (BEAKER) (test 1.59 mg/dL 0.57-1.25 esra=320) GLUCOSE RANDOM (BEAKER) 190 mg/dL 70-105 (test fulm=106) CALCIUM (BEAKER) (test 9.0 mg/dL 8.4-10.2 kofe=491) EGFR (BEAKER) (test 42 mL/min/1.73 sq m ESTIMATED GFR IS NOT bbop=5861) ACCURATE CREATININE CLEARANCE IN PREDICTING GLOMERULAR FILTRATION RATE. ESTIMATED GFR IS NOT APPLICABLE FOR DIALYSIS PATIENTS. HEPATIC FUNCTION [id number] 05:56:00 Test Item Value Reference Range Comments TOTAL PROTEIN (BEAKER) (test cnqm=298) 6.1 gm/dL 6.0-8.3 ALBUMIN (BEAKER) (test bagc=7133) 2.8 g/dL 3.5-5.0 BILIRUBIN TOTAL (BEAKER) (test jqgq=918) 0.3 mg/dL 0.2-1.2 BILIRUBIN DIRECT (BEAKER) (test pmca=727) 0.2 mg/dL 0.1-0.5 ALKALINE PHOSPHATASE (BEAKER) (test yish=569) 117 U/L 40-150 AST (SGOT) (BEAKER) (test syxh=330) 15 U/L 5-34 ALT (SGPT) (BEAKER) (test tysh=858) 10 U/L 6-55 PROTHROMBIN [id number] 05:09:00 Test Item Value Reference Range Comments PROTIME (BEAKER) (test zqfw=534) 15.2 seconds 11.9-14.2 INR (BEAKER) (test aetl=627) 1.3 <=5.9 Effective 07/17/2018: PT Reference Range ChangeNew: 11.9-14.2 Previous: 11.7- 14.7RECOMMENDED COUMADIN/WARFARIN INR THERAPY RANGESSTANDARD DOSE: 2.0-3.0 Includes: PROPHYLAXIS for venous thrombosis, systemic embolization; TREATMENT for venous thrombosis and/or pulmonary embolus.HIGH RISK: Target INR is2.5-3.5 for patients wiht mechanical heart valves.CBC W/PLT COUNT & AUTO [id number] 05:02:00 Test Item Value Reference Range Comments WHITE BLOOD CELL COUNT (BEAKER) (test hwyi=033) 8.7 K/ L 3.5-10.5 RED BLOOD CELL COUNT (BEAKER) (test ggei=944) 3.86 M/ L 4.63-6.08 HEMOGLOBIN (BEAKER) (test ajvt=080) 10.4 GM/DL 13.7-17.5 HEMATOCRIT (BEAKER) (test qxib=337) 32.7 % 40.1-51.0 MEAN CORPUSCULAR VOLUME (BEAKER) (test krse=024) 84.7 fL 79.0-92.2 MEAN CORPUSCULAR HEMOGLOBIN (BEAKER) (test 26.9 pg 25.7-32.2 uxjn=737) MEAN CORPUSCULAR HEMOGLOBIN CONC (BEAKER) (test 31.8 GM/DL 32.3-36.5 qtky=462) RED CELL DISTRIBUTION WIDTH (BEAKER) (test 17.4 % 11.6-14.4 hehc=714) PLATELET COUNT (BEAKER) (test nwil=605) 244 K/CU MM 150-450 MEAN PLATELET VOLUME (BEAKER) (test syml=179) 11.1 fL 9.4-12.4 NUCLEATED RED BLOOD CELLS (BEAKER) (test 0 /100 WBC 0-0 jruj=454) NEUTROPHILS RELATIVE PERCENT (BEAKER) (test 59 % kywq=402) LYMPHOCYTES RELATIVE PERCENT (BEAKER) (test 23 % jyoq=414) MONOCYTES RELATIVE PERCENT (BEAKER) (test 14 % stwb=191) EOSINOPHILS RELATIVE PERCENT (BEAKER) (test 3 % pesr=002) BASOPHILS RELATIVE PERCENT (BEAKER) (test 1 % iqfk=776) NEUTROPHILS ABSOLUTE COUNT (BEAKER) (test 5.10 K/ L 1.78-5.38 uing=877) LYMPHOCYTES ABSOLUTE COUNT (BEAKER) (test 2.04 K/ L 1.32-3.57 nzap=293) MONOCYTES ABSOLUTE COUNT (BEAKER) (test 1.26 K/ L 0.30-0.82 cwyi=321) EOSINOPHILS ABSOLUTE COUNT (BEAKER) (test 0.22 K/ L 0.04-0.54 aiij=676) BASOPHILS ABSOLUTE COUNT (BEAKER) (test 0.07 K/ L 0.01-0.08 twkq=121) IMMATURE GRANULOCYTES-RELATIVE PERCENT (BEAKER) 0 % 0-1 (test gewe=5712) POCT-GLUCOSE [id number] 21:19:00 Test Item Value Reference Range Comments POC-GLUCOSE METER (BEAKER) 193 mg/dL 70-110 TESTED AT [address] (test mnev=6600) [place] [address] C. DIFFICILE GDH [id number] 19:42:00 Test Item Value Reference Range Comments CDT TOXIN (test Negative Negative zfdp=[id number]) CDT GDH ANTIGEN (test Negative Negative No indication of Clostridium ayoh=[id number]) difficile infection and no colonization. Discontinue enteric isolation and therapy. Testing performed by [employer] Rapid Cassette Assay. For GDH, published sensitivity of the assay is 98.7% compared to cytotoxicity testing. For Toxin AB, published sensitivity is 87.8% and specificity 99.4% compared to cytotoxicity testing.Verification of kit performance was done by the [facility] Microbiology Lab prior to clinical use.POCT-GLUCOSE [id number] 18:07:00 Test Item Value Reference Range Comments POC-GLUCOSE METER (BEAKER) 134 mg/dL 70-110 TESTED AT [address] (test dlgy=8708) [place] [address] RAD, CHEST, 2 [id number] 13:37:00Reason for exam:->evaluate lungs for effusionFINAL REPORT [...] MDReport Verified Date/Time: 11/18/2018 13:37:10 Reading Location: [facility] Mammo Reading Room POCT- GLUCOSE [id number] 12:08:00 Test Item Value Reference Range Comments POC-GLUCOSE METER (BEAKER) 151 mg/dL 70-110 TESTED AT [address] (test hilf=6800) [place] [id number] POCT-GLUCOSE [id number] 08:44:00 Test Item Value Reference Range Comments POC-GLUCOSE METER (BEAKER) 153 mg/dL 70-110 TESTED AT [address] (test rrdk=3246) [place] [address] HEMOGLOBIN [id number] 08:17:00 Test Item Value Reference Range Comments HEMOGLOBIN A1C (BEAKER) (test immj=405) 10.9 % 4.3-6.1 URINALYSIS W/ REFLEX URINE [id number] 06:54:00 Test Item Value Reference Range Comments COLOR (BEAKER) (test vqoz=270) Yellow CLARITY (BEAKER) (test gzhn=118) Hazy SPECIFIC GRAVITY UA (BEAKER) (test rsdg=820) 1.015 1.001-1.035 PH UA (BEAKER) (test kftq=154) 5.0 5.0-8.0 PROTEIN UA (BEAKER) (test wxbm=671) 20 mg/dL Negative GLUCOSE UA (BEAKER) (test nnrk=594) >1000 mg/dL Negative KETONES UA (BEAKER) (test mxkw=912) Negative Negative BILIRUBIN UA (BEAKER) (test ltyq=862) Negative Negative BLOOD UA (BEAKER) (test rxmg=717) Negative Negative NITRITE UA (BEAKER) (test gzpi=415) Negative Negative LEUKOCYTE ESTERASE UA (BEAKER) (test gagr=857) Large Negative UROBILINOGEN UA (BEAKER) (test xaue=334) 0.2 mg/dL 0.2-1.0 RBC UA (BEAKER) (test bnsf=301) 2 /HPF WBC UA (BEAKER) (test fsvo=083) 12 /HPF BACTERIA (BEAKER) (test ctcq=838) Rare SQUAMOUS EPITHELIAL (BEAKER) (test jhtc=632) 11 /HPF HYALINE CASTS (BEAKER) (test yruh=291) 3 /LPF SOURCE(BEAKER) (test zayo=6705) HEPATITIS B [id number] 05:07:00 Test Item Value Reference Range Comments HEPATITIS B CORE TOTAL ANTIBODY (BEAKER) (test Nonreactive Nonreactive lpcn=086) HEPATITIS B SURFACE ANTIBODY (BEAKER) (test < mIU/mL <8.0 xzhl=767) HEPATITIS B SURFACE ANTIGEN (2) (BEAKER) (test Nonreactive Nonreactive qiag=3155) HEPATITIS C [id number] 04:53:00 Test Item Value Reference Range Comments HEPATITIS C ANTIBODY (BEAKER) (test szmc=696) Nonreactive Nonreactive TSH/FREE T4 IF [id number] 04:53:00 Test Item Value Reference Range Comments THYROID STIMULATING HORMONE (BEAKER) (test 3.05 uIU/mL 0.35-4.94 qzft=218) [id number] 04:40:00 Test Item Value Reference Range Comments PROCALCITONIN (BEAKER) (test tcyk=1623) 0.07 ng/mL <0.05 SEPSIS RISK (ng/mL)Low: 0.05-0.50Intermediate: 0.51-2.00High: & gt;=[id number] 04:38:00 Test Item Value Reference Range Comments AMMONIA (BEAKER) (test qxej=975) 20 mol/L 18-72 [id number] 04:29:00 Test Item Value Reference Range Comments PHOSPHORUS (BEAKER) (test gtss=645) 4.2 mg/dL 2.3-4.7 [id number] 04:29:00 Test Item Value Reference Range Comments MAGNESIUM (BEAKER) (test dhqd=134) 1.7 mg/dL 1.6-2.6 BASIC METABOLIC [id number] 04:29:00 Test Item Value Reference Range Comments SODIUM (BEAKER) (test 135 meq/L 136-145 bqhs=081) POTASSIUM (BEAKER) (test 3.7 meq/L 3.5-5.1 dout=181) CHLORIDE (BEAKER) (test 101 meq/L 98-107 ihos=284) CO2 (BEAKER) (test 23 meq/L 22-29 szvj=046) BLOOD UREA NITROGEN 37 mg/dL 7-21 (BEAKER) (test usis=836) CREATININE (BEAKER) (test 1.77 mg/dL 0.57-1.25 fshv=790) GLUCOSE RANDOM (BEAKER) 165 mg/dL 70-105 (test bhri=331) CALCIUM (BEAKER) (test 9.0 mg/dL 8.4-10.2 iblr=015) EGFR (BEAKER) (test 37 mL/min/1.73 sq m ESTIMATED GFR IS NOT uvwo=8215) ACCURATE CREATININE CLEARANCE IN PREDICTING GLOMERULAR FILTRATION RATE. ESTIMATED GFR IS NOT APPLICABLE FOR DIALYSIS PATIENTS. LIPID [id number] 04:29:00 Test Item Value Reference Range Comments TRIGLYCERIDES (BEAKER) (test egle=999) 92 mg/dL CHOLESTEROL (BEAKER) (test fgpa=505) 123 mg/dL HDL CHOLESTEROL (BEAKER) (test sorb=304) 36 mg/dL LDL CHOLESTEROL CALCULATED (BEAKER) (test 69 mg/dL nesy=970) Triglyceride Reference Range: Low Risk <150 Borderline 150- 199 High Risk 200-499 Very High Risk >=500Cholesterol Reference Range: Low Risk <200 Borderline 200-239 High Risk > 240HDL Cholesterol Reference Range: Low Risk >=60 High Risk <40LDL Cholesterol Reference Range: Optimal <100 Near Optimal 100-129 Borderline 130-159 High 160-189 Very High >=190HEPATIC FUNCTION [id number] 04:29:00 Test Item Value Reference Range Comments TOTAL PROTEIN (BEAKER) (test qtso=731) 6.0 gm/dL 6.0-8.3 ALBUMIN (BEAKER) (test zfwe=2516) 2.8 g/dL 3.5-5.0 BILIRUBIN TOTAL (BEAKER) (test fury=180) 0.4 mg/dL 0.2-1.2 BILIRUBIN DIRECT (BEAKER) (test idbd=269) 0.2 mg/dL 0.1-0.5 ALKALINE PHOSPHATASE (BEAKER) (test xmwc=127) 112 U/L 40-150 AST (SGOT) (BEAKER) (test ubtt=530) 16 U/L 5-34 ALT (SGPT) (BEAKER) (test lmek=603) 11 U/L 6-55 [id number] 04:29:00 Test Item Value Reference Range Comments AMYLASE (BEAKER) (test ndgc=192) 38 U/L 25-125 [id number] 04:29:00 Test Item Value Reference Range Comments LIPASE (BEAKER) (test jxym=118) 47 U/L 8-78 LACTIC ACID, [id number] 03:58:00 Test Item Value Reference Range Comments LACTATE BLOOD VENOUS (2) 1.0 mmol/L 0.5-2.2 Specimen slightly hemolyzed (BEAKER) (test xtos=8804) PROTHROMBIN [id number] 03:53:00 Test Item Value Reference Range Comments PROTIME (BEAKER) (test wrlg=271) 14.7 seconds 11.9-14.2 INR (BEAKER) (test ioph=719) 1.2 <=5.9 Effective 07/17/2018: PT Reference Range ChangeNew: 11.9-14.2 Previous: 11.7- 14.7RECOMMENDED COUMADIN/WARFARIN INR THERAPY RANGESSTANDARD DOSE: 2.0-3.0 Includes: PROPHYLAXIS for venous thrombosis, systemic embolization; TREATMENT for venous thrombosis and/or pulmonary embolus.HIGH RISK: Target INR is2.5-3.5 for patients wiht mechanical heart valves.CBC W/PLT COUNT & AUTO [id number] 03:49:00 Test Item Value Reference Range Comments WHITE BLOOD CELL COUNT (BEAKER) (test nuap=258) 10.2 K/ L 3.5-10.5 RED BLOOD CELL COUNT (BEAKER) (test fnlr=604) 3.67 M/ L 4.63-6.08 HEMOGLOBIN (BEAKER) (test tzuz=165) 9.9 GM/DL 13.7-17.5 HEMATOCRIT (BEAKER) (test idpo=567) 31.3 % 40.1-51.0 MEAN CORPUSCULAR VOLUME (BEAKER) (test mvin=752) 85.3 fL 79.0-92.2 MEAN CORPUSCULAR HEMOGLOBIN (BEAKER) (test 27.0 pg 25.7-32.2 cgys=002) MEAN CORPUSCULAR HEMOGLOBIN CONC (BEAKER) (test 31.6 GM/DL 32.3-36.5 mncz=867) RED CELL DISTRIBUTION WIDTH (BEAKER) (test 17.5 % 11.6-14.4 zpeq=896) PLATELET COUNT (BEAKER) (test osmy=550) 219 K/CU MM 150-450 MEAN PLATELET VOLUME (BEAKER) (test ebur=388) 10.9 fL 9.4-12.4 NUCLEATED RED BLOOD CELLS (BEAKER) (test 0 /100 WBC 0-0 cjoq=358) NEUTROPHILS RELATIVE PERCENT (BEAKER) (test 68 % ftsj=768) LYMPHOCYTES RELATIVE PERCENT (BEAKER) (test 20 % djrv=524) MONOCYTES RELATIVE PERCENT (BEAKER) (test 10 % gwds=515) EOSINOPHILS RELATIVE PERCENT (BEAKER) (test 1 % bbxk=987) BASOPHILS RELATIVE PERCENT (BEAKER) (test 1 % vqbf=585) NEUTROPHILS ABSOLUTE COUNT (BEAKER) (test 6.87 K/ L 1.78-5.38 qtkp=365) LYMPHOCYTES ABSOLUTE COUNT (BEAKER) (test 2.02 K/ L 1.32-3.57 qrqk=905) MONOCYTES ABSOLUTE COUNT (BEAKER) (test 1.04 K/ L 0.30-0.82 zmzc=970) EOSINOPHILS ABSOLUTE COUNT (BEAKER) (test 0.14 K/ L 0.04-0.54 vpak=206) BASOPHILS ABSOLUTE COUNT (BEAKER) (test 0.06 K/ L 0.01-0.08 zrza=570) IMMATURE GRANULOCYTES-RELATIVE PERCENT (BEAKER) 0 % 0-1 (test czlw=9609) POCT-GLUCOSE [id number] 22:57:00 Test Item Value Reference Range Comments POC-GLUCOSE METER (BEAKER) 177 mg/dL 70-110 TESTED AT [facility] [address] [facility] (test tqrt=4266) [facility] [address]
[2019-01-09] MEDS ORDERED: NA CHLORIDE 0.9% 500 ML ONE (09:38)
[2019-01-09 09:59] LABS: Absolute Lymphocytes (CBC) 1.8 K/uL (0.7-4.9); Basophils % 0.5 % (0-1.3); Hematocrit 35.7 % (39.6-49.0); Lymphocytes % 20.5 % (15.3-44.8); MPV 9.2 fL (7.6-11.3); RBC Red Blood Cell Count 4.11 M/uL (4.33-5.43)
[2019-01-09 10:04] LABS: Protime INR 1.11
--- NOTE | 2019-01-09 10:08 | EDPHYS ---
Physician Documentation [facility] Name: Dirk Arshad Age: 83 yrs Sex: Male : 1935 Arrival Date: 01/09/2019 Time: 09:10 Bed 15 Private MD: Braydon Andres C ED Physician Jasbir Alex HPI: 01/09 09:26 This 83 yrs old Male presents to ER via Unassigned with complaints of rn dehydration and needs paracentesis. 09:[address] Andres for feelings of dehydration and possible need for paracentesis. Has rn cirrhosis, last paracentesis performed 1 month ago, denies fever/vomiting. was confused a few days ago but took lactulose and now not confused. + generalized weakness that family feels due to decreased PO intake because of abd fluid. . Onset: The symptoms/episode began/occurred at an unknown time. Severity of symptoms: At their worst the symptoms were moderate in the emergency department the symptoms are unchanged. The patient has experienced similar episodes in the past. The patient has not recently seen a physician. Historical: - Allergies: :28 PENICILLINS; ss - Home Meds: : allopurinol 300 mg Oral tab 1 tab once daily [Active]; aspirin 81 mg Oral chew 1 tab ss once daily [Active]; atorvastatin 40 mg Oral tab 1 tab once daily [Active]; carvedilol 3.125 mg Oral tab 1 tab 2 times per day [Active]; finasteride 5 mg Oral tab 1 tab once daily [Active]; Centrum Silver 400-250 mcg Oral chew [Active]; furosemide 20 mg Oral tab 0.5 tab once daily [Active]; gemfibrozil 600 mg Oral tab 1 tab 2 times per day [Active]; glimepiride 4 mg Oral tab 0.5 tab am and pm [Active]; magnesium oxide 400 mg Oral tab 400 mg daily [Active]; losartan 25 mg Oral tab 1 tab once daily [Active]; pantoprazole 40 mg Oral TbEC 1 tab once daily [Active]; spironolactone 25 mg Oral tab 0.5 tab once daily [Active]; Vitamin B-12 Oral [Active]; Vitamin D-3 with Aloe 120-1,000-10 mg-unit-mg Oral tab [Active]; - PMHx: 09:28 Diabetes - NIDDM; fatty liver; GERD; Hypertension; Myocardial infarction; ss - PSHx: 09:30 Bypass; Cholecystectomy; Hernia repair; back; rb1 - Immunization history:: Adult Immunizations up to date. - Social history:: Smoking status: Patient/guardian denies using tobacco. - Ebola Screening: : Patient denies exposure to infectious person Patient denies travel to an Ebola-affected area in the 21 days before illness onset. - Family history:: not pertinent. - Hospitalizations: : No recent hospitalization is reported. ROS: 09:26 Constitutional: Negative for fever, chills, and weight loss, Eyes: Negative for injury, rn pain, redness, and discharge, Neck: Negative for injury, pain, and swelling, Cardiovascular: Negative for chest pain, palpitations, and edema, Respiratory: Negative for shortness of breath, cough, wheezing, and pleuritic chest pain, Abdomen/GI: + abd distension/ascites MS/Extremity: Negative for injury and deformity, Skin: Negative for injury, rash, and discoloration, Neuro: Negative for headache, numbness, tingling, and seizure. Exam: 09:26 Constitutional: cachectic patient, no acute distress Head/Face: Normocephalic, rn atraumatic. ENT: dry MM Cardiovascular: Regular rate and rhythm. No pulse deficits. Respiratory: Diminished bilateral breath sounds Abdomen/GI: distended abd with + fluid wave, no peritoneal signs MS/ Extremity: Pulses equal, no cyanosis. Neurovascular intact. Neuro: Awake and alert, GCS 15 Vital Signs: 09:28 BP 131 / 64; Pulse 89; Resp 17; Temp 97.7(TE); Pulse Ox 99% on R/A; Weight 70.31 kg; ss Height 6 ft. 0 in. (182.88 cm); Pain 0/10; 10:28 BP 124 / 64; Pulse 76; Resp 17; Pulse Ox 99% on R/A; Pain 0/10; rb1 11:06 BP 120 / 73; Pulse 77; Resp 19; Pulse Ox 98% on R/A; Pain 0/10; rb1 09:28 Body Mass Index 21.02 (70.31 kg, 182.88 cm) MDM: 09:14 Patient medically screened. rn 10:05 Differential Diagnosis dehydration, hepatic encephalopathy, ascites. Data reviewed: rn vital signs, nurses notes, lab test result(s), and as a result, I will admit patient. Counseling: I had a detailed discussion with the patient and/or guardian regarding: the historical points, exam findings, and any diagnostic results supporting the discharge/admit diagnosis, lab results, the need for outpatient follow up, to return to the emergency department if symptoms worsen or persist or if there are any questions or concerns that arise at home. Admission orders: after a detailed discussion of the patient's condition and case, the admit orders are written by me. ED course: Consulted with Dr. Andres \T\ 1000, will admit, inpatient, for weakness, dehydration, and need for paracentesis. . 01/09 09:24 Order name: CBC with Diff; Complete Time: 10:46 rn 01/09 09:24 Order name: Basic Metabolic Panel; Complete Time: 10:15 rn 01/09 09:24 Order name: LFT's; Complete Time: 10:15 rn 01/09 09:24 Order name: PT-INR; Complete Time: 10:08 rn 01/09 09:55 Order name: AMMONIA; Complete Time: 10:46 rn 01/09 10:43 Order name: Manual Differential; Complete Time: 10:46 EDMS 01/09 09:24 Order name: IV Start; Complete Time: 09:51 rn Administered Medications: 09:36 Drug: NS 0.9% 500 ml Route: IV; Rate: bolus; Site: left antecubital; rb1 10:13 Follow up: IV Status: Completed infusion rb1 Disposition: 01/09/19 10:07 Hospitalization ordered by Braydon Andres for Inpatient Admission. Preliminary diagnosis are Dehydration, Weakness, Ascites, Unspecified cirrhosis of liver. - Bed requested for Telemetry/MedSurg (Inpatient). - Status is Inpatient Admission. rb1 - Condition is Stable. - Problem is an ongoing problem. - Symptoms are unchanged. UTI on Admission? No Signatures: Dispatcher [employer] Bernadine Glover RN RN Jasbir Canas MD MD rn Smirch, Shelby, RN RN ss Barber, Rebecca, RN RN rb1 Corrections: (The following items were deleted from the chart) 11:01 10:07 Hospitalization Ordered by Braydon Andres MD for Inpatient Admission. Preliminary taylor diagnosis is Dehydration; Weakness; Ascites; Unspecified cirrhosis of liver. Bed requested for Telemetry/MedSurg (Inpatient). Status is Inpatient Admission. Condition is Stable. Problem is an ongoing problem. Symptoms are unchanged. UTI on Admission? No. rn 11:34 11:01 01/09/2019 10:07 Hospitalization Ordered by A Mckenna MAC for Inpatient Admission. rb1 Preliminary diagnosis is Dehydration; Weakness; Ascites; Unspecified cirrhosis of liver. Bed requested for Telemetry/MedSurg (Inpatient). Status is Inpatient Admission. Condition is Stable. Problem is an ongoing problem. Symptoms are unchanged. UTI on Admission? No. dw
--- NOTE | 2019-01-09 10:08 | ER ---
Nurse's Notes [facility] Name: Dirk Arshad Age: 83 yrs Sex: Male : 1935 Arrival Date: 01/09/2019 Time: 09:10 Bed 15 Private MD: Braydon Andres C Diagnosis: Dehydration;Weakness;Ascites;Unspecified cirrhosis of liver Presentation: 01/09 09:10 Presenting complaint: states: "He is dehydrated and needs a paracentesis." Abd ss swelling, decreased appetite and fatigue x >1 week. Transition of care: patient was not received from another setting of care. Onset of symptoms is unknown. Risk Assessment: Do you want to hurt yourself or someone else? Patient reports no desire to harm self or others. Initial Sepsis Screen: Does the patient meet any 2 criteria? No. Patient's initial sepsis screen is negative. Does the patient have a suspected source of infection? No. Patient's initial sepsis screen is negative. Care prior to arrival: None. Sent by Dr. Andres. 09:10 Method Of Arrival: Wheelchair ss 09:10 Acuity: ELVIRA 3 ss Historical: - Allergies: 09:28 PENICILLINS; ss - Home Meds: 09:28 allopurinol 300 mg Oral tab 1 tab once daily [Active]; aspirin 81 mg Oral chew 1 tab ss once daily [Active]; atorvastatin 40 mg Oral tab 1 tab once daily [Active]; carvedilol 3.125 mg Oral tab 1 tab 2 times per day [Active]; finasteride 5 mg Oral tab 1 tab once daily [Active]; Centrum Silver 400-250 mcg Oral chew [Active]; furosemide 20 mg Oral tab 0.5 tab once daily [Active]; gemfibrozil 600 mg Oral tab 1 tab 2 times per day [Active]; glimepiride 4 mg Oral tab 0.5 tab am and pm [Active]; magnesium oxide 400 mg Oral tab 400 mg daily [Active]; losartan 25 mg Oral tab 1 tab once daily [Active]; pantoprazole 40 mg Oral TbEC 1 tab once daily [Active]; spironolactone 25 mg Oral tab 0.5 tab once daily [Active]; Vitamin B-12 Oral [Active]; Vitamin D-3 with Aloe 120-1,000-10 mg-unit-mg Oral tab [Active]; - PMHx: 09:28 Diabetes - NIDDM; fatty liver; GERD; Hypertension; Myocardial infarction; ss - PSHx: 09:30 Bypass; Cholecystectomy; Hernia repair; back; rb1 - Immunization history:: Adult Immunizations up to date. - Social history:: Smoking status: Patient/guardian denies using tobacco. - Ebola Screening: : Patient denies exposure to infectious person Patient denies travel to an Ebola-affected area in the 21 days before illness onset. - Family history:: not pertinent. - Hospitalizations: : No recent hospitalization is reported. Screenin:15 Abuse screen: Denies threats or abuse. Nutritional screening: decreased appetite due to rb1 the ascites. . Tuberculosis screening: No symptoms or risk factors identified. Fall Risk None identified. Assessment: 09:15 General: Appears uncomfortable, Behavior is calm, cooperative, Denies fever. General:. rb1 General: Family is concerned about dehydration. Pain: Denies pain. Neuro: Level of Consciousness is awake, alert, obeys commands, Oriented to person, place, time, situation. Neuro: Reports weakness. Cardiovascular: Capillary refill < 3 seconds is brisk in bilateral fingers. Respiratory: Airway is patent Respiratory effort is even, unlabored, Respiratory pattern is regular, symmetrical. GI: Abdomen is distended, noted to have ascites. : No signs and/or symptoms were reported regarding the genitourinary system. Derm: Skin is pink, warm \\T\\ dry. Musculoskeletal: Range of motion: intact in all extremities. 10:15 Reassessment: Patient appears in no apparent distress at this time. No changes from rb1 previously documented assessment. Family at the bedside. 11:09 Reassessment: Patient appears in no apparent distress at this time. Patient and/or rb1 family updated on plan of care and expected duration. Pain level reassessed. Patient is alert, oriented x 3, equal unlabored respirations, skin warm/dry/pink. Family remains at the bedside. Patient denies pain at this time. 11:14 Reassessment: Called report to YAMIL Ozuna. Information from the SBAR was given. All rb1 questions asked and answered. Vital Signs: 09:28 BP 131 / 64; Pulse 89; Resp 17; Temp 97.7(TE); Pulse Ox 99% on R/A; Weight 70.31 kg; ss Height 6 ft. 0 in. (182.88 cm); Pain 0/10; 10:28 BP 124 / 64; Pulse 76; Resp 17; Pulse Ox 99% on R/A; Pain 0/10; rb1 11:06 BP 120 / 73; Pulse 77; Resp 19; Pulse Ox 98% on R/A; Pain 0/10; rb1 09:28 Body Mass Index 21.02 (70.31 kg, 182.88 cm) ED Course: 09:10 Patient arrived in ED. as 09:12 Braydon Andres MD is Private Physician. as 09:14 Soraida Murphy, RN is Primary Nurse. rb1 09:14 Jasbir Alex MD is Attending Physician. rn 09:15 Patient has correct armband on for positive identification. Bed in low position. Call rb1 light in reach. Side rails up X 1. Pulse ox on. NIBP on. 09:27 Triage completed. ss 09:28 Arm band placed on right wrist. ss 09:34 Inserted saline lock: 20 gauge in left antecubital area, using aseptic technique. rb1 ,using aseptic technique. IV inserted by Brent, Instructor and students. Blood collected. 10:06 Braydon Andres MD is Hospitalizing Provider. rn 11:22 No provider procedures requiring assistance completed. Patient admitted, IV remains in rb1 place. Administered Medications: 09:36 Drug: NS 0.9% 500 ml Route: IV; Rate: bolus; Site: left antecubital; rb1 10:13 Follow up: IV Status: Completed infusion rb1 Outcome: 10:07 Decision to Hospitalize by Provider. rn 11:33 Admitted to Tele accompanied by tech, family with patient, via wheelchair, room 428, rb1 with chart, Report called to YAMIL Oznua 11:33 Condition: stable 11:33 Instructed on the need for admit. 11:34 Patient left the ED. rb1 Signatures: Anjelica Roger as Jasbir Alex MD MD rn Smirch, Shelby, RN RN Soraida Murphy, YAMIL LOBO rb1
[2019-01-09 10:12] LABS: Albumin 2.4 g/dL (3.4-5.0); Bilirubin Direct 0.4 mg/dL (0-0.2); Bilirubin Total 0.8 mg/dL (0.2-1.0); Potassium 3.6 mmol/L (3.5-5.1); Protein, Total 6.9 g/dL (6.4-8.2)
[2019-01-09 10:42] LABS: Anisocytosis 1+; Blood Morphology Comment NOTED (NOT SEEN); Burr Cells 1+; Platelet Estimate ADEQ; Poikilocytosis 1+
[2019-01-09] MEDS ORDERED: NA CHLORIDE 0.9% 1,000 ML IV SCH (11:23)
[2019-01-09] MEDS ORDERED: ONDANSETRON 4 MG/2 ML VIAL IV PRN (11:23)
--- NOTE | 2019-01-09 13:46 | RAD REPORT ---
EXAM DESCRIPTION: US - Paracentesis Proc Guidance - 01/09/2019 12:38 pm CLINICAL HISTORY: Ascites, exam requested as therapeutic paracentesis COMPARISON: Paracentesis procedure November 2018 TECHNIQUE: The patient presents for ultrasound-guided paracentesis. The procedure, risks and altern atives were discussed with the patient in detail. Oral and written consent were obtained. Time out p rocedure was performed. The patient had no contraindicated allergy or medication history. PT, INR va lues within acceptable limits. Preliminary sonographic evaluation identified right lower access site. The skin and deeper tissues w ere anesthetized with 1 percent lidocaine. Under direct sonographic visualization, a paracentesis ca theter was advanced into the peritoneal cavity. Large volume drainage was initiated. Approximately 9 liters of ascites removed. At the conclusion of the procedure, catheter was withdrawn and a bandage placed at the puncture site. Postprocedure care and precaution instructions were given to the patient. Patient was transferred [facility] to the floor for continued care. IMPRESSION: Ultrasound-guided paracentesis as detailed.
[2019-01-09] MEDS ORDERED: D50W 25 GM/50 ML SYRINGE/VIAL IV PRN (20:51)
[2019-01-09] MEDS ORDERED: GLUCAGON 1 MG/VIAL IM PRN (20:51)
[2019-01-09] MEDS: FLUCONAZOLE 100mg IVPB 100 MG/50 ML BAG IV SCH (21:00)
[2019-01-09] MEDS: NA CHLORIDE 0.9% 1,000 ML IV SCH (21:00)
[2019-01-09] MEDS ORDERED: FLUCONAZOLE 200mg IVPB 200 MG/100 ML BAG IV ONE (21:30)
[2019-01-09] MEDS: INSULIN -REGULAR HUMAN 50 UNIT/0.5 ML ML SQ SCH (21:59)
[2019-01-09] MEDS: INSULIN GLARGINE 100 UNITS/ML SQ SCH (21:59)
--- NOTE | 2019-01-10 03:34 | HP ---
Date of Admission: 01/09/2019 Chief Complaint: Not feeling good. History Of Present Illness: This is an 83-year-old male patient who was recently diagnosed as having cirrhosis of liver, has been seeing liver specialist in [place], was brought into emergency room toramona willis, was not feeling good. Earlier this week, patient's , which was I believe on Sunday of this w [place] she came to office, talked to me that patient was having generalized weakness, excessive sleepine ss, and feeling very weak and tired and we started him on lactulose. His blood work which was done a bout a week ago showed normal ammonia level, but considering his symptoms, we decided to start him on lactulose and today she called office and reported that lactulose had started to help a little bit, but overall he was not doing good. He is having a lot of trouble with pain at the time of swallowing . Abdomen is getting increasingly distended, having some back pain. No fevers, chills, nausea, vomi ting. His appetite is poor, so he was asked to come to the emergency room after he was evaluated, he was admitted to the hospital. I saw him this evening and patient's son was at bedside. Patient had a paracentesis done, which was a therapeutic paracentesis after his admission to hospital and approx imately 9 L of fluid was removed. He had shortness of breath prior to paracentesis in supine positio n, but when I saw him, he was able to lie flat in the bed without any difficulty breathing. Allergies: PENICILLIN, CAUSING ITCHING. Medications: List reviewed. Review of Systems: Constitutional: As mentioned above. GI: As mentioned above. FAMILY REUNIFICATION SPECIALIST: As mentioned above. All other systems reviewed and negative. Past Medical History: Significant for cirrhosis of liver, type 2 diabetes mellitus uncontrolled, mix ed hyperlipidemia, anemia hypomagnesemia, COPD, gastroesophageal reflux disease, biliary stricture, b enign prostatic hypertrophy, depression, insomnia, gout, coronary artery disease. Also significant f or hypertension. Past Surgical History: Significant for cataracts. Coronary artery bypass surgery, cholecystectomy, h ernia repair, back surgery. Family History: Mother had hypertension. Social History: Prior history of smoking. Use of alcohol negative. Physical Examination: Vital Signs: Temperature 97.9, pulse 86, respiratory rate 18, blood pressure 112/58 oxygen saturatio n 99%, height 6 feet, weight 147 pounds. General: Patient appears cachectic looking with significant muscle wasting of his muscles of upper a nd lower extremities. Facial muscle wasting. HEENT: Head atraumatic, normocephalic. Conjunctivae nonerythematous. Sclerae white. Mouth, examin ation shows extensive oral candidiasis inside his mouth covering his tongue and a significant portion of oral mucosa and posterior pharyngeal wall. Ears/Nose, no mass, lesion, discharge noted. Neck: Supple. No JVD, lymph nodes, bruit, thyromegaly noted. Lungs: Bilateral good equal air entry. Clear to auscultation. No rhonchi. No rales. Heart: Normal heart sounds, no murmur or gallop. Abdomen: Soft. No guarding, rigidity, tenderness. Presence of dressing from recent paracentesis in right lower quadrant. Bowel sounds normoactive. No hepatosplenomegaly. No bruit. Extremities: Bilateral grade 1 pedal edema. Skin: No rash, ulcer, cellulitis. Lymphatics: No lymph node enlargement in neck, supraclavicular, infraclavicular region. Neuro: No focal neurological deficit. Chest: Unremarkable. External Genitalia: Deferred. Rectal: Deferred. Laboratory Data And Investigation Done During This Hospitalization: White count 8.9, hemoglobin 11.8 , platelets 301, INR 1.11. Ammonia level 39. Sodium 134, potassium 3.6, chloride 102, bicarb 26, BU N 38, creatinine 1.35, glucose 207, total bilirubin 0.8, SGOT 24, SGPT 18. Chest x-ray; no acute cardiopulmonary changes. Patient's MELD score is 13. Impression: 1.Cirrhosis of liver with ascites, decompensated. 2.Oral candidiasis. 3.Esophageal candidiasis. 4.Generalized weakness. 5.Debility. 6.Type 2 diabetes mellitus, uncontrolled. 7.Coronary artery disease. 8.Mixed hyperlipidemia. 9.Hypertension. 10.Chronic obstructive pulmonary disease. 11.Gastroesophageal reflux disease. Plan: We will admit patient to hospital for further evaluation and management of this problem. Sabina ent is appropriate for inpatient and is expected to spend 2 midnights in the hospital. Patient had t herapeutic paracentesis done today and we will go ahead and continue his home medications per order s tarting tomorrow, we will request Physical Therapy to assist with the patient ambulation hwang. We wi ll start patient on IV Diflucan 100 mg daily considering extensive oral candidiasis and I am afraid t hat his odynophagia is due to candidal esophagitis. We will see how he responds to that. We will al so give him proton pump inhibitor therapy per order. Diabetes will be managed with sliding scale ins ulin as well as long-acting insulin per order. I will see him tomorrow for followup. Patient to susie low up with his liver specialist upon discharge from the hospital. KAITLYNN/MODL Voice ID: [id number]
[2019-01-10 05:13] LABS: Absolute Lymphocytes (CBC) 3.4 K/uL (0.7-4.9); Basophils % 0.3 % (0-1.3); Hematocrit 34.5 % (39.6-49.0); Lymphocytes % 32.8 % (15.3-44.8); MPV 9.3 fL (7.6-11.3); RBC Red Blood Cell Count 3.99 M/uL (4.33-5.43)
[2019-01-10 05:24] LABS: Potassium 3.1 mmol/L (3.5-5.1)
[2019-01-10] MEDS: NA CHLORIDE 0.9% 1,000 ML IV SCH (05:44)
[2019-01-10] MEDS: INSULIN -REGULAR HUMAN 50 UNIT/0.5 ML ML SQ SCH ×4 (07:30→20:34)
[2019-01-10] MEDS: SPIRONOLACTONE 25 MG TABLET PO SCH ×2 (09:00→13:29)
[2019-01-10] MEDS: carvediloL 3.125 MG TAB PO SCH ×2 (09:00→20:33)
[2019-01-10] MEDS ORDERED: POTASSIUM CL SA 10 MEQ TAB PO ONE ×2 (09:00→21:00)
[2019-01-10] MEDS ORDERED: FUROSEMIDE 20 MG TABLET PO SCH (09:00)
[2019-01-10] MEDS: PANTOPRAZOLE INJ 80 MG in NA CHLORIDE 0.9% 250 ML IV SCH ×2 (09:18→18:47)
[2019-01-10] MEDS: LACTULOSE 20 GM/30 ML UCUP PO SCH ×3 (09:18→20:31)
[2019-01-10] MEDS: FINASTERIDE 5 MG TAB PO SCH (09:19)
[2019-01-10] MEDS: CYANOCOBALAMIN 1,000 MCG TAB PO SCH (09:19)
[2019-01-10] MEDS: MAGNESIUM OXIDE 400 MG TAB PO SCH (09:19)
[2019-01-10] MEDS: ASPIRIN EC 81 MG TAB PO SCH (09:20)
[2019-01-10] MEDS: allopurinoL 300 MG TAB PO SCH (09:24)
[2019-01-10] MEDS: INSULIN GLARGINE 100 UNITS/ML SQ SCH (20:33)
[2019-01-10] MEDS: FLUCONAZOLE 100mg IVPB 100 MG/50 ML BAG IV SCH (20:33)
[2019-01-10] MEDS: GLUCERNA SHAKE 237 ML CAN PO SCH (20:34)
--- NOTE | 2019-01-10 21:38 | PN ---
Date of Progress Note: 01/10/2019 Subjective: Patient was seen this morning for followup. He is actually feeling better compared to y . He is talking better, more awake and more alert compared to last night when I saw him. Wi fe and son were present at bedside and they reported same observation. Objective: Vital Signs: Reviewed. HEENT: Unremarkable. Lungs: Clear to auscultation. Heart: Sounds normal. Abdomen: Soft. Bowel sounds normal. No guarding, rigidity, tenderness, distention. Extremities: Bilateral leg edema present, but better than yesterday. Laboratory Data: Reviewed. Impression: 1.Candidal esophagitis. 2.Oral candidiasis. 3.Gastroesophageal reflux disease. 4.Cirrhosis of liver with ascites. 5.Hypokalemia. Plan: We will replace electrolytes per protocol. Continue home medications per order. We will cont inue IV Diflucan and start patient on IV Protonix drip. I will see him tomorrow for followup. Deppatricia ding on his condition, we will decide if he is stable for discharge tomorrow or not. His mouth exami nation today shows improvement in his oral candidiasis lesions. Between last night and this morning, there is about 30% to 40% improvement. Physical therapy will be consulted to help ambulate the patient. I will see him tomorrow for followup. Details were discussed with adams humphries and family. KAITLYNN/MODL Voice ID: [id number] Report ID: [id number]
[2019-01-11 05:33] LABS: Absolute Lymphocytes (CBC) 2.1 K/uL (0.7-4.9); Basophils % 0.3 % (0-1.3); Hematocrit 32.8 % (39.6-49.0); MPV 9.1 fL (7.6-11.3)
[2019-01-11] MEDS: PANTOPRAZOLE INJ 80 MG in NA CHLORIDE 0.9% 250 ML IV SCH (05:36)
[2019-01-11 05:46] LABS: Magnesium 1.9 mg/dL (1.8-2.4); Potassium 3.9 mmol/L (3.5-5.1)
[2019-01-11] MEDS: INSULIN -REGULAR HUMAN 50 UNIT/0.5 ML ML SQ SCH ×4 (07:30→20:08)
[2019-01-11] MEDS ORDERED: SODIUM CHLORIDE 0.9% 10ML INJ IV PRN (08:22)
[2019-01-11] MEDS ORDERED: D50W 25 GM/50 ML SYRINGE/VIAL IV PRN (08:22)
[2019-01-11] MEDS ORDERED: GLUCAGON 1 MG/VIAL IM PRN (08:22)
[2019-01-11] MEDS: LACTULOSE 20 GM/30 ML UCUP PO SCH ×3 (09:49→21:22)
[2019-01-11] MEDS: ASPIRIN EC 81 MG TAB PO SCH (09:49)
[2019-01-11] MEDS: SPIRONOLACTONE 25 MG TABLET PO SCH (09:50)
[2019-01-11] MEDS: allopurinoL 300 MG TAB PO SCH (09:50)
[2019-01-11] MEDS: FINASTERIDE 5 MG TAB PO SCH (09:51)
[2019-01-11] MEDS: CYANOCOBALAMIN 1,000 MCG TAB PO SCH (09:51)
[2019-01-11] MEDS: FUROSEMIDE 20 MG TABLET PO SCH (09:51)
[2019-01-11] MEDS: MAGNESIUM OXIDE 400 MG TAB PO SCH (09:52)
[2019-01-11] MEDS: GLUCERNA SHAKE 237 ML CAN PO SCH ×2 (09:52→21:00)
[2019-01-11] MEDS: INSULIN GLARGINE 100 UNITS/ML SQ SCH (09:53)
[2019-01-11] MEDS: PANTOPRAZOLE 40 MG INJ IVP SCH (10:40)
[2019-01-11] MEDS: FLUCONAZOLE 100mg IVPB 100 MG/50 ML BAG IV SCH (21:22)
--- NOTE | 2019-01-11 22:51 | PN ---
Date of Progress Note: 01/11/2019 Subjective: Patient was seen this morning for followup. No new complaints or problems reported by h im. His was present with him at bedside. Overall, his condition is improving since admission. He still has significant generalized weakness. His appetite is getting better. His odynophagia has significantly improved since we started him on IV Diflucan. No new complaints or problems reported. Objective: Vital Signs: Reviewed. HEENT: Unremarkable. Lungs: Clear to auscultation. Heart: Sounds normal. Abdomen: Soft. Bowel sounds normal. No guarding, rigidity, tenderness, or distention. Extremities: Bilateral trace leg edema. Laboratory Data: White count 7.3, hemoglobin 11, platelets 268. Sodium 137, potassium 3.9, chloride 107, bicarb 23, BUN 28, creatinine 1, glucose 57, magnesium 1.9. Impression: 1.Cirrhosis of liver with ascites. 2.Generalized weakness. 3.Oral candidiasis. 4.Candidal esophagitis. 5.Gastroesophageal reflux disease. Plan: We will go ahead and continue current IV Diflucan. We will discontinue continuous Protonix dr ip. Instead of that we will start IV Protonix 40 mg daily. Patient's vital signs were reviewed. Sy stolic blood pressure is low better today than yesterday and day before yesterday. So, we will incre ase the dose of spironolactone to 25 mg p.o. daily and increase dose of Lasix to 20 mg p.o. daily. D iscontinue carvedilol. Plan is to increase the dose of diuretic therapy as he can tolerate and physi lesa therapy to continue to help ambulate the patient. Because of his significant deconditioning, ela ility, generalized weakness due to underlying cirrhosis of liver and mild nutrition, the patient and family would like to consider to go to rehab facility and we will request that social service consult ation on Sunday to see if the patient qualifies for such rehab stay. Continue current lactulose. KAITLYNN/MODL Voice ID: [id number] Report ID: [id number]
[2019-01-12 06:29] LABS: Albumin 2.2 g/dL (3.4-5.0); Bilirubin Total 0.7 mg/dL (0.2-1.0); Potassium 4.9 mmol/L (3.5-5.1); Protein, Total 6.4 g/dL (6.4-8.2)
[2019-01-12] MEDS: INSULIN -REGULAR HUMAN 50 UNIT/0.5 ML ML SQ SCH ×4 (07:30→20:50)
[2019-01-12] MEDS: PANTOPRAZOLE 40 MG INJ IVP SCH (08:22)
[2019-01-12] MEDS: FUROSEMIDE 20 MG TABLET PO SCH (08:22)
[2019-01-12] MEDS: LACTULOSE 20 GM/30 ML UCUP PO SCH ×3 (08:22→20:34)
[2019-01-12] MEDS: CYANOCOBALAMIN 1,000 MCG TAB PO SCH (08:23)
[2019-01-12] MEDS: SPIRONOLACTONE 25 MG TABLET PO SCH (08:23)
[2019-01-12] MEDS: MAGNESIUM OXIDE 400 MG TAB PO SCH (08:23)
[2019-01-12] MEDS: allopurinoL 300 MG TAB PO SCH (08:23)
[2019-01-12] MEDS: ASPIRIN EC 81 MG TAB PO SCH (08:24)
[2019-01-12] MEDS: FINASTERIDE 5 MG TAB PO SCH (08:24)
[2019-01-12] MEDS: INSULIN GLARGINE 100 UNITS/ML SQ SCH (08:25)
[2019-01-12] MEDS: GLUCERNA SHAKE 237 ML CAN PO SCH ×2 (08:26→20:35)
--- NOTE | 2019-01-12 17:14 | PN ---
Date of Progress Note: 01/12/2019 Subjective: Patient was seen this morning for followup. No new complaints or problems reported by p khadra. He was sitting at bedside. Appetite is improving in last 2, 3 days compared to how it was b efore admission as reported by patient. Denies any difficulty swallowing. Denies any pain with swal lowing. Those problems have completely resolved now. He has significant generalized weakness. Objective: Vital Signs: Reviewed. HEENT: Unremarkable. Lungs: Clear to auscultation. Heart: Sounds normal. Abdomen: Soft. Bowel sounds normal. No guarding, rigidity, tenderness. Patient does have abdomina l distention with ascites, which has improved after paracentesis and we will continue to monitor that . Extremities: Trace leg edema, significantly better than before. Laboratory Data: Sodium 135, potassium 4.9, chloride 104, bicarb 26, BUN 28, creatinine 1.16, glucos e 129. SGOT 29, SGPT 21, ammonia level 85. Impression: 1.Cirrhosis of liver with ascites. 2.Hepatic encephalopathy. 3.Diabetes mellitus. 4.Debility. 5.Generalized weakness. Plan: The patient had significant problem with feeling sleepy all day and not eating, drinking well. This was prior to admission and I believe that this was due to a combination of hepatic encephalopa thy as well as his candidal esophagitis problem also. In any case, he is responding well to IV Diflu can and IV Protonix. We will continue that. His mental status has improved significantly. Appetite has improved. Ammonia level has gone up compared to time of admission, but that does not necessaril y correlate with clinical picture as I have explained it to the patient's . We will continue lac tulose. Continue diuretic therapy and other current medical management. Social service consultation was requested to assist the patient to go to [facility] as per patient's 's prefer ence. I have asked her to communicate with Social service tomorrow. Patient is ready for discharge either on Sunday or Sunday, which is 01/13 and 01/14/2019. KAITLYNN/MODL Voice ID: [id number] Report ID: [id number]
[2019-01-12] MEDS: FLUCONAZOLE 100mg IVPB 100 MG/50 ML BAG IV SCH (20:34)
[2019-01-13 06:25] LABS: Absolute Lymphocytes (CBC) 2.3 K/uL (0.7-4.9); Basophils % 0.5 % (0-1.3); Hematocrit 35.5 % (39.6-49.0); Lymphocytes % 27.7 % (15.3-44.8); MPV 8.7 fL (7.6-11.3); RBC Red Blood Cell Count 4.15 M/uL (4.33-5.43)
[2019-01-13 06:44] LABS: Albumin 2.2 g/dL (3.4-5.0); Bilirubin Total 0.7 mg/dL (0.2-1.0); Magnesium 1.9 mg/dL (1.8-2.4); Potassium 4.1 mmol/L (3.5-5.1); Protein, Total 6.3 g/dL (6.4-8.2)
[2019-01-13] MEDS: INSULIN -REGULAR HUMAN 50 UNIT/0.5 ML ML SQ SCH ×3 (07:30→16:30)
[2019-01-13] MEDS ORDERED: Rifaximin 550 MG Tab PO SCH (09:00)
[2019-01-13] MEDS: PANTOPRAZOLE 40 MG INJ IVP SCH (09:12)
[2019-01-13] MEDS: LACTULOSE 20 GM/30 ML UCUP PO SCH ×2 (09:12→13:14)
[2019-01-13] MEDS: INSULIN GLARGINE 100 UNITS/ML SQ SCH (09:13)
[2019-01-13] MEDS: CYANOCOBALAMIN 1,000 MCG TAB PO SCH (09:13)
[2019-01-13] MEDS: ASPIRIN EC 81 MG TAB PO SCH (09:14)
[2019-01-13] MEDS: FINASTERIDE 5 MG TAB PO SCH (09:14)
[2019-01-13] MEDS: FUROSEMIDE 20 MG TABLET PO SCH (09:14)
[2019-01-13] MEDS: SPIRONOLACTONE 25 MG TABLET PO SCH (09:14)
[2019-01-13] MEDS: allopurinoL 300 MG TAB PO SCH (09:14)
[2019-01-13] MEDS: MAGNESIUM OXIDE 400 MG TAB PO SCH (09:14)
[2019-01-13] MEDS: GLUCERNA SHAKE 237 ML CAN PO SCH (09:16)
[2019-01-13 09:38] VITALS: O2SAT 98
[2019-01-13 16:34] VITALS: BP 102/58; TEMP 98.4
--- NOTE | 2019-01-14 03:53 | DS ---
Date of Discharge: 01/13/2019 Disposition: Discharged to go to rehab floor. Physical Examination: HEENT: Unremarkable. Lungs: Clear to auscultation. Heart: Sounds normal. Abdomen: Soft, bowel sounds normal. No guarding, rigidity, tenderness. Presence of mild distention due to ascites present. Extremities: Leg edema has almost completely resolved. Laboratory Data: Last white count today 8.2, hemoglobin 11.8, platelets 261. Upon admission, white count 8.9, hemoglobin 11.8, platelets 301. Last chemistry today, sodium 136, potassium 4.1, chloride 105, bicarb 24, BUN 29, creatinine 1.11, glucose 108. Liver function tests unremarkable. Ammonia l evel 87 today. Hospital Course: This is an 83-year-old, pleasant male patient, who was admitted to the hospital wit h complaints of not feeling good. Please see dictated H and P for more information. Patient was adm itted to the hospital with underlying cirrhosis of liver with a large amount of ascites. He did have therapeutic paracenteses. We started him on lactulose. Physical Therapy was consulted. Blood pres sure tends to run on the low side. We have discontinued carvedilol for that reason and we are slowly trying to increase the dose of diuretic medication, which is furosemide and spironolactone. He did have some hepatic encephalopathy due to underlying cirrhosis of liver. We will go ahead and adjust t he dose on lactulose as per today's order and we will also start Xifaxan and see how that helps him o jimi a period of time. I encouraged the patient to follow up with his liver specialist in [place]. T here was no evidence of any GI bleeding or any infection. Patient has significant generalized weakne ss and debility, and his appetite was very poor for several days and during this hospitalization, it has improved. He had difficulty swallowing and painful swallowing, and this was thought to be due to candidal esophagitis and gastroesophageal reflux disease. With IV Diflucan, his oral candidiasis an d dysphagia as well as odynophagia has significant improved to the extent that as of yesterday, he re ported no more problems with difficulty or pain with swallowing. Today, he was discharged to go to [facility] in stable condition. Final Diagnoses: 1.Cirrhosis of liver with ascites. 2.Hepatic encephalopathy. 3.Oral candidiasis. 4.Candidal esophagitis. 5.Generalized weakness. 6.Debility. 7.Type 2 diabetes mellitus. 8.Coronary artery disease. 9.Hypertension. 10.Chronic obstructive pulmonary disease. 11.Gastroesophageal reflux disease. KAITLYNN/MODL Voice ID: [id number] Report ID: [id number]
== END 2019-01-13 16:46 | DRG 433 ==
LOC: ER 09:09 → ERHOLD 10:09 → 4TH 11:19
PROVIDERS: ADMIT Internal Medicine; ATTEND Internal Medicine
PROC: 0W9G3ZX Drainage of Peritoneal Cavity, Percutaneous Approach, Diagnostic (ICD-10-PCS; principal; 2019-01-09)
DX: K74.60 Unspecified cirrhosis of liver (principal); B37.81 Candidal esophagitis; R18.8 Other ascites; B37.0 Candidal stomatitis; K72.90 Hepatic failure, unspecified without coma; R53.1 Weakness; R53.81 Other malaise; I25.10 Atherosclerotic heart disease of native coronary artery without angina pectoris; I10 Essential (primary) hypertension; J44.9 Chronic obstructive pulmonary disease, unspecified; K21.9 Gastro-esophageal reflux disease without esophagitis; E11.65 Type 2 diabetes mellitus with hyperglycemia; E78.2 Mixed hyperlipidemia; Z88.0 Allergy status to penicillin; Z95.1 Presence of aortocoronary bypass graft; E87.6 Hypokalemia
CPT/HCPCS: 36415; 49083; 80048; 80053; 80076; 82140; 82947; 83735; 84132; 85025; 85610; 96360; 97110; 97116; 97161; 97530; 99285; C9113; J1450; J1815; J7030; J7040

== ENCOUNTER 2019-01-13 11:33 | Inpatient (IN) | payer OTHER, BC ==
--- NOTE | 2019-01-13 16:41 | R.PREADM ---
SCREENING DATE AND TIME 01/13/2019 11:53 (PARKING LOT SUPERVISOR) ANTICIPATED REHAB ADMISSION DATE 01/15/2019 REFERRING FACILITY [facility] REFERRAL DATE AND TIME 01/13/2019 11:53 (PARKING LOT SUPERVISOR) REFERRAL OFFICE PHONE [phone] REFERRAL ROOM# [id number] ACUTE ADMIT DATE 01/09/2019 Previous Rehabilitation(s): No. ACUTE CHOPPER GUN OPERATOR/DC FINAL TESTER Nisreen Umanzor REFERRING PHYSICIAN Dru Andres REHAB FACILITY [facility] CLINICAL LIAISON Desiree Velazco PHYSICIAN REVIEWER Dr. Alexy Butler M.D. MR# [id number] NAME DIRK CRUZ ADDRESS [facility] PHONE [facility] [address] DATE OF 1935 AGE 83 SSN# [id number] GENDER male MARITAL STATUS RACE white ADMIT FROM 02 - [facility] PRE-HOSPITAL LIVING SETTING 01 - Home (private home/apt. board/care, assisted living, usp, transitional living) HOME TYPE AND DETAILS Type of home: single family house # of levels in the residence: 1 # of steps to enter the residence: 0 # of steps within the residence: 0 PRE-HOSPITAL LIVING WITH Family/Relatives FAMILY SUPPORT Yes PRIMARY FAMILY CONTACT NAME ZAC CRUZ PRIMARY FAMILY CONTACT PHONE PRIMARY FAMILY CONTACT RELATIONSHIP PHONE PRIMARY FAMILY CONTACT ON ADM.? no IS PRIMARY FAMILY CONTACT AUTH. REP.? no 1ST EMERGENCY CONTACT ZAC CRUZ 1ST CONTACT PHONE 1ST CONTACT RELATIONSHIP PHONE 1ST CONTACT ON ADM. no IS 1ST CONTACT AUTH. REP.? no PHONE 2ND CONTACT ON ADM.? no PATIENT EMPLOYMENT STATUS Retired (for age) PATIENT EMPLOYER No Employer PAYOR INFORMATION: 1ST PAYOR NAME MEDICARE 1ST PAYOR PHONE [phone] 1ST PAYOR INJURY/ILLNESS DUE TO ACCIDENT? No ANOTHER LIBERTARIAN RESPONSIBLE? No PRIMARY REHAB/ACUTE DIAGNOSIS: Liver Cirrhosis ONSET DATE 01/09/2019 REHAB IMPAIRMENT CATEGORY (ZOLTAN): 20 Miscellaneous (Misc) does NOT meet 60% rule PRIMARY DIAGNOSIS-RELATED SURGERIES: No surgeries related to the primary diagnosis were performed. 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 therapy X-rays - GERD Altered diet Elevation of head of bed Medications Nausea/vomiting Nighttime food/fluid restrictions Nutrition - Depression Medications Psycho/social Safety - CAD 02 sats Activity management Medications VS - Hypertension Fluid management Medications VS RISK FOR COMPLICATIONS: - COPD Acute Resp failure Pneumonia Resp. Arrest - GERD Alteration in sleep Aspiration Dehydration Malnutrition Pain - Depression Serotonin side effects - CAD CHF Cardiac Arrest OR Pain - Hypertension CVA Hypotension OR TIA SUMMARY OF ACUTE HOSPITALIZATION: Pt. is a 83 yo Right-handed white male. On 01/09/2019 he was admitted to [facility] with diagnosis Liver Cirrhosis. His impairment category is Debility 16 - Debility (16). Pre-morbidly, Pt. was independent/mod-I in Locomotion, Safety Awareness, Balance, Social Cognition, T ransfers Control, Self-Care, Endurance, Sphincter Control, and Communication; and he had good Locomot ion, Balance, Safety Awareness, Social Cognition, Transfers Control, Sphincter Control, Self-Care, Co mmunication, and Endurance. Currently, he has deficits of Locomotion, Balance, Safety Awareness, Social Cognition, Transfers Cont rol, Sphincter Control, Self-Care, and Communication. Pt. is now referred to [facility] for acute in-patient rehabilitation in order to maximize patient's functional independence in activities of daily living, strength, ROM, and mobi lity. Patient has realistic goal of being discharged at assistance level 6-Layo to reside at Home with Fam denise/Relatives. Dirk Cruz is a83 year old male that lives in a single kelly house with his . He was independent with ADLs and self care. On 01/09/2019, patient was having generalized weakness, excessive sleepiness, abdomen was distended and back pain and was admitted at [facility]. He is now medically stable but in need of 24-hour nursing, doctor supervision and oversite while receiving active and ongoing intensive (PT, OT therapy a day/15 hours per week and receive care with an intensive interdisciplinary approach. 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) PAST SURGICAL HISTORY: Cataract Surgery Coronary Artery Bypass Surgery Cholecystectomy Hernia repair Back surgery MEDICATION ALLERGIES: Penicillin ENVIRONMENTAL ALLERGIES: None Known - Substance Allergies None Known - Other Allergies None Known CODE STATUS: Full code WEIGHT/HEIGHT/BMI: WEIGHT 147 lbs HEIGHT 6' 0" BMI 19.9 DIET: - Diet Type Regular - Diet - Solid Texture Regular - Diet - Liquid Texture Regular - Tube Feed N/A REVIEW OF SYSTEMS: - Gen Alert and awake Lying in bed No apparent distress Oriented to: person, time, and place - Vital Signs Temperature: 98.1 F SBP/DBP: 103/55 Pulse: 84 Resp: 18 Vital signs stable, afebrile - CVS RRR VITAL SIGNS Temperature: 98.1 F SBP/DBP: 103/55 Pulse: 84 Resp: 18 Vital signs stable, afebrile MEDICATIONS/TREATMENT: Other- See attached MAR (Medication Administration Record). - Medical management by Dr. Andres.. CURRENT SPHINCTER CONTROL: Pre-hospital bladder status: continent # of bladder accidents in the last 7 days prior to screenin Pre-hospital bowel status: continent # of bowel accidents in the last 7 days prior to screenin Last Bowel Movement Date: 01/11/2019 CURRENT LOCOMOTION STATUS: distance traveled in wheelchair 70 feet distance walked 110 feet DETAILED CURRENT FUNCTIONAL STATUS: - Bladder accident frequency: Ind - No accidents in the past 7 days - Bowel accident frequency: Ind - No accidents in the past 7 days - Walking score based on distance walked: 0(N/A) score based on distance walked: 2(5149ft) - Wheelchair score based on distance traveled: 0(N/A) score based on distance traveled: 2(5149ft) QI SCORES: - Self-Care A. Eating 05-Setup or clean-up assistance B. Oral hygiene 05-Setup or clean-up assistance C. Toileting hygiene 05-Setup or clean-up assistance E. Shower/bathe self 05-Setup or clean-up assistance F. Upper body dressing 04-Supervision or touching assistance G. Lower body dressing 04-Supervision or touching assistance H. Putting on/taking off footwear 03-Partial/moderate assistance - Mobility A. Roll left and right 04-Supervision or touching assistance B. Sit to lying 03-Partial/moderate assistance C. Lying to sitting on side of bed 03-Partial/moderate assistance D. Sit to stand 03-Partial/moderate assistance E. Chair/pge-cx-wckco transfer 03-Partial/moderate assistance F. Toilet transfer 03-Partial/moderate assistance G. Car transfer 88-Not attempted due to medical condition or safety concerns I. Walk 10 feet 04-Supervision or touching assistance J. Walk 50 feet with two turns 04-Supervision or touching assistance K. Walk 150 feet 88-Not attempted due to medical condition or safety concerns L. Walking 10 feet on uneven surfaces 88-Not attempted due to medical condition or safety concerns M. 1 step (curb) 88-Not attempted due to medical condition or safety concerns N. 4 steps 88-Not attempted due to medical condition or safety concerns O. 12 steps 88-Not attempted due to medical condition or safety concerns P. Picking up object 88-Not attempted due to medical condition or safety concerns R. Wheel 50 feet with two turns 02-Substantial/maximal assistance S. Wheel 150 feet 02-Substantial/maximal assistance - Bladder and Bowel Bladder continence 0-Always continent Bowel continence 0-Always continent - Endurance Fair - Balance Fair - Safety Awareness Fair CURRENT [facility]. DEFICITS: Self-Care, Mobility, Endurance, Balance, and Safety Awareness CURRENT / PREVIOUS ASSISTIVE DEVICES: 3-in-1 Commode BSC Dentures Glasses Hearing Aid(s) Hospital Bed Oxygen Raised Toilet Rolling Walker Shower Chair Tub Bench Wheelchair CURRENT USE ASSISTIVE DEVICES: SCDs TEDs HISTORY OF FALLS. HAS THE PATIENT HAD TWO OR MORE FALLS IN THE PAST YEAR OR ANY FALL WITH INJURY IN T HE PAST YEAR?: No PRIOR SURGERY. DID THE PATIENT HAVE MAJOR SURGERY DURING THE 100 DAYS PRIOR TO ADMISSION?: No THERAPY NOTES FROM ACUTE CARE: Attached. SPECIAL NEEDS: - Safety Concerns Skin breakdown precautions needed due to skin breakdown risk PATIENT NEEDS ACTIVE AND ONGOING THERAPEUTIC INTERVENTION OF MULTIPLE THERAPY DISCIPLINES, INCLUDING: - Dietary and Nutrition Adequate Nutrition. Nutritional Education. Nutritional Supplements. PATIENT NEEDS CLOSE MEDICAL SUPERVISION BY A REHABILITATION PHYSICIAN FOR: Coordination of Treatment Team Diabetes Management Medical and Co-Morbidity Management Sleep Problems PATIENT REQUIRES 24X7 REHAB NURSING FOR MEDICAL AND FUNCTIONAL MGT. OF THE FOLLOWING DEFICITS: Disease Management Medication Management Patient/Family Education Providing Safe Environment PATIENT REQUIRES INTENSIVE, COORDINATED INTERDISCIPLINARY APPROACH TO REHAB: Arranging Home Equipment/Services Discharge Planning Family Intervention/Training Behavioral Instructor/Case Management PATIENT REHAB POTENTIAL: Yanet CRUZ is able and expected to receive 3 hours of individualized therapy daily on at least 5 of ever y 7 days Yanet CURTISs prognosis for significant practical improvement within a reasonable period of time appears Good Expected level of measurable improvement will be of a practical value to Yanet CURTISs functional capacit y or adaptations to impairments Has a viable Discharge Plan Medically appropriate; condition is sufficiently stable to participate in intensive rehab program DISCHARGE PLAN: - Estimated Length of Stay (days) 13. - Consensus on plan Discharge plan has been discussed with primary caregiver. Patient/Family is in agreement with the venus n. Primary caregiver is in agreement with the plan. - Patient/Family Goals Return home with assistance. - Planned Living Setting Upon Discharge Home, to live with Family/Relatives. Transitional Living. RECOMMENDED CARE LEVEL: IRF RECOMMENDATION DETAILS: Recommended Admission to Comprehensive Rehabilitation Program to Increase Functional [place] SCREENER'S COMPLETENESS CONFIRMATION: - Screening Confirmation The patient data collection on this preadmission screening form is finished PHYSICIANS REVIEW AND ADMISSION DETERMINATION Admit - Based on my review of the Pre-Admission Screening results, in my medical judgment and experie nce, I concur with the findings and recommend admission to [facility], as this patient requires an IRF level of care. SIGNATURE PANEL: Clinical Liaison - [electronically] signed by Desiree Velazco on 01/13/2019 at 14:32 (PARKING LOT SUPERVISOR) Physician Reviewer - [electronically] signed by Dr. Alexy Butler M.D. on 01/13/2019 at 16:40 (PARKING LOT SUPERVISOR )
[2019-01-13] MEDS ORDERED: D50W 25 GM/50 ML SYRINGE/VIAL IV PRN (17:12)
[2019-01-13] MEDS ORDERED: GLUCAGON 1 MG/VIAL IM PRN (17:12)
[2019-01-13] MEDS ORDERED: SODIUM CHLORIDE 0.9% 10ML INJ IV PRN (17:19)
[2019-01-13] MEDS ORDERED: ONDANSETRON 4 MG/2 ML VIAL IV PRN (17:19)
--- OUTSIDE RECORDS SUMMARY | 2019-01-13 17:19 | XMS REPORT ---
:1935 [facility] Address [address] [place] [address] Dr. Black [address] [place] [id number] Care Team Providers Name Role Phone AMILCAR [...] Value Reference Range Comments ALPHA-FETOPROTEIN (BEAKER) (test nvwj=8958) < ng/mL <10.0 HEPATIC FUNCTION [id number] 18:34:00 Test Item Value Reference Range Comments TOTAL PROTEIN (BEAKER) (test xcpk=130) 6.3 gm/dL 6.0-8.3 ALBUMIN (BEAKER) (test vhky=3755) 3.2 g/dL 3.5-5.0 BILIRUBIN TOTAL (BEAKER) (test jwxu=346) 0.7 mg/dL 0.2-1.2 BILIRUBIN DIRECT (BEAKER) (test ewbj=288) 0.4 mg/dL 0.1-0.5 ALKALINE PHOSPHATASE (BEAKER) (test gkit=313) 146 U/L 40-150 AST (SGOT) (BEAKER) (test wfqz=455) 29 U/L 5-34 ALT (SGPT) (BEAKER) (test kuat=393) 23 U/L 6-55 BASIC METABOLIC [id number] 18:34:00 Test Item Value Reference Range Comments SODIUM (BEAKER) (test 136 meq/L 136-145 dyyo=044) POTASSIUM (BEAKER) (test 3.4 meq/L 3.5-5.1 pzyx=126) CHLORIDE (BEAKER) (test 101 meq/L 98-107 zkwm=457) CO2 (BEAKER) (test 27 meq/L 22-29 vute=853) BLOOD UREA NITROGEN 20 mg/dL 7-21 (BEAKER) (test shjo=315) CREATININE (BEAKER) (test 1.06 mg/dL 0.57-1.25 kkda=070) GLUCOSE RANDOM (BEAKER) 246 mg/dL 70-105 (test zidf=067) CALCIUM (BEAKER) (test 9.1 mg/dL 8.4-10.2 zwei=498) EGFR (BEAKER) (test 67 mL/min/1.73 sq m ESTIMATED GFR IS NOT uous=3631) ACCURATE CREATININE CLEARANCE IN PREDICTING GLOMERULAR FILTRATION RATE. ESTIMATED GFR IS NOT APPLICABLE FOR DIALYSIS PATIENTS. PROTHROMBIN [id number] 17:50:00 Test Item Value Reference Range Comments PROTIME (BEAKER) (test grdl=893) 15.4 seconds 11.9-14.2 INR (BEAKER) (test vmcw=858) 1.3 <=5.9 Effective 07/17/2018: PT Reference Range ChangeNew: 11.9-14.2 Previous: 11.7- 14.7RECOMMENDED COUMADIN/WARFARIN INR THERAPY RANGESSTANDARD DOSE: 2.0-3.0 Includes: PROPHYLAXIS for venous thrombosis, systemic embolization; TREATMENT for venous thrombosis and/or pulmonary embolus.HIGH RISK: Target INR is2.5-3.5 for patients wiht mechanical heart valves.CBC W/PLT COUNT & AUTO [id number] 17:39:00 Test Item Value Reference Range Comments WHITE BLOOD CELL COUNT (BEAKER) (test trwc=754) 7.8 K/ L 3.5-10.5 RED BLOOD CELL COUNT (BEAKER) (test axkd=077) 4.12 M/ L 4.63-6.08 HEMOGLOBIN (BEAKER) (test tyfd=452) 11.5 GM/DL 13.7-17.5 HEMATOCRIT (BEAKER) (test srch=905) 36.5 % 40.1-51.0 MEAN CORPUSCULAR VOLUME (BEAKER) (test bupt=532) 88.6 fL 79.0-92.2 MEAN CORPUSCULAR HEMOGLOBIN (BEAKER) (test 27.9 pg 25.7-32.2 mufw=883) MEAN CORPUSCULAR HEMOGLOBIN CONC (BEAKER) (test 31.5 GM/DL 32.3-36.5 valv=004) RED CELL DISTRIBUTION WIDTH (BEAKER) (test 20.7 % 11.6-14.4 mgqd=685) PLATELET COUNT (BEAKER) (test qsfe=218) 238 K/CU MM 150-450 MEAN PLATELET VOLUME (BEAKER) (test qmhm=029) 11.2 fL 9.4-12.4 NUCLEATED RED BLOOD CELLS (BEAKER) (test 0 /100 WBC 0-0 kffe=085) NEUTROPHILS RELATIVE PERCENT (BEAKER) (test 60 % eyld=749) LYMPHOCYTES RELATIVE PERCENT (BEAKER) (test 25 % znar=757) MONOCYTES RELATIVE PERCENT (BEAKER) (test 12 % abec=253) EOSINOPHILS RELATIVE PERCENT (BEAKER) (test 2 % cdrh=959) BASOPHILS RELATIVE PERCENT (BEAKER) (test 1 % rmte=223) NEUTROPHILS ABSOLUTE COUNT (BEAKER) (test 4.68 K/ L 1.78-5.38 tkaa=505) LYMPHOCYTES ABSOLUTE COUNT (BEAKER) (test 1.98 K/ L 1.32-3.57 fgjj=889) MONOCYTES ABSOLUTE COUNT (BEAKER) (test 0.93 K/ L 0.30-0.82 ejdt=297) EOSINOPHILS ABSOLUTE COUNT (BEAKER) (test 0.14 K/ L 0.04-0.54 aqzy=501) BASOPHILS ABSOLUTE COUNT (BEAKER) (test 0.05 K/ L 0.01-0.08 iexz=885) IMMATURE GRANULOCYTES-RELATIVE PERCENT (BEAKER) 1 % 0-1 (test amec=3852) BLOOD [id number] 08:00:00 Test Item Value Reference Range Comments CULTURE (BEAKER) (test hkvf=9771) No growth in 5 days BLOOD [id number] 08:00:00 Test Item Value Reference Range Comments CULTURE (BEAKER) (test pbyx=4085) No growth in 5 days U/S, [id number] 17:55:00Labs to be ordered:->Other (please add comment)cell countReason for exam:->diagnostic and therapeutic para for cirrhotic ptaient coming in with abd pain and distension.FINAL REPORT Ultrasound guided paracentesis Clinical History: Ascites. Sedation : None. Connie Scratcher: Jenniffer Duran PA-C Supervising Physician: Jose Alejandro Palmer MD Furniture Cleaner: None. Estimated Blood Loss: < 1 mL. [...] anesthesia was achieved with lidocaine, a 5 Icelandic one-step catheter was advanced into the peritoneal cavity under ultrasound guidance. After completion of drainage, the catheter was removed. There was no evidence of complication. Impression:Successful ultrasound guided paracentesis. Signed: Jose Alejandro Palmer MDReport Verified Date/ Time: 11/20/2018 17:55:49 Reading Location: [address] Ultrasound Reading Room POCT-GLUCOSE [id number] 13:27:00 Test Item Value Reference Range Comments POC-GLUCOSE METER (BEAKER) 250 mg/dL 70-110 TESTED AT [address] (test oehm=2228) [facility] [address] STOOL CULTURE + SHIGA [id number] 12:42:00 Test Item Value Reference Range Comments CULTURE (LANNY) (test No Salmonella, Shigella or mzvg=6394) Campylobacter isolated STOOL PATH [id number] 12:42:00 Test Item Value Reference Range Comments PATHOGEN EXAM CHARGED (LANNY) (test fkvm=3034) Done U/S, ABDOMINAL, [id number] 09:32:00Reason for exam:->new dx cirrhosis. with doppler [...] MDReport Verified Date/Time: 11/20/2018 09:32:31 Reading Location: [address] Radiology Reading Room POCT-GLUCOSE [id number] 08:21:00 Test Item Value Reference Range Comments POC-GLUCOSE METER (LANNY) 156 mg/dL 70-110 TESTED AT [facility] [address] (test ctjx=4007) [place] [address] [id number] 04:25:00 Test Item Value Reference Range Comments PHOSPHORUS (BEAKER) (test khpr=334) 2.8 mg/dL 2.3-4.7 [id number] 04:25:00 Test Item Value Reference Range Comments MAGNESIUM (BEAKER) (test krjy=411) 1.8 mg/dL 1.6-2.6 BASIC METABOLIC [id number] 04:25:00 Test Item Value Reference Range Comments SODIUM (BEAKER) (test 134 meq/L 136-145 rgda=272) POTASSIUM (BEAKER) (test 3.3 meq/L 3.5-5.1 onii=070) CHLORIDE (BEAKER) (test 103 meq/L 98-107 nsuk=802) CO2 (BEAKER) (test 22 meq/L 22-29 pvpg=734) BLOOD UREA NITROGEN 34 mg/dL 7-21 (BEAKER) (test eebz=698) CREATININE (BEAKER) (test 1.26 mg/dL 0.57-1.25 vywz=888) GLUCOSE RANDOM (BEAKER) 174 mg/dL 70-105 (test bamq=044) CALCIUM (BEAKER) (test 8.9 mg/dL 8.4-10.2 zjti=716) EGFR (BEAKER) (test 55 mL/min/1.73 sq m ESTIMATED GFR IS NOT opfn=7409) ACCURATE CREATININE CLEARANCE IN PREDICTING GLOMERULAR FILTRATION RATE. ESTIMATED GFR IS NOT APPLICABLE FOR DIALYSIS PATIENTS. HEPATIC FUNCTION [id number] 04:25:00 Test Item Value Reference Range Comments TOTAL PROTEIN (BEAKER) (test gjlw=467) 5.8 gm/dL 6.0-8.3 ALBUMIN (BEAKER) (test dxlp=3514) 2.6 g/dL 3.5-5.0 BILIRUBIN TOTAL (BEAKER) (test pnht=083) 0.3 mg/dL 0.2-1.2 BILIRUBIN DIRECT (BEAKER) (test pocn=424) 0.2 mg/dL 0.1-0.5 ALKALINE PHOSPHATASE (BEAKER) (test yjno=092) 111 U/L 40-150 AST (SGOT) (BEAKER) (test rpjo=178) 18 U/L 5-34 ALT (SGPT) (BEAKER) (test pxvc=451) 10 U/L 6-55 PROTHROMBIN [id number] 03:40:00 Test Item Value Reference Range Comments PROTIME (BEAKER) (test rcpr=096) 15.8 seconds 11.9-14.2 INR (BEAKER) (test hnvc=674) 1.3 <=5.9 Effective 07/17/2018: PT Reference Range ChangeNew: 11.9-14.2 Previous: 11.7- 14.7RECOMMENDED COUMADIN/WARFARIN INR THERAPY RANGESSTANDARD DOSE: 2.0-3.0 Includes: PROPHYLAXIS for venous thrombosis, systemic embolization; TREATMENT for venous thrombosis and/or pulmonary embolus.HIGH RISK: Target INR is2.5-3.5 for patients wiht mechanical heart valves.CBC W/PLT COUNT & AUTO [id number] 03:31:00 Test Item Value Reference Range Comments WHITE BLOOD CELL COUNT (BEAKER) (test rasf=374) 6.2 K/ L 3.5-10.5 RED BLOOD CELL COUNT (BEAKER) (test zglv=155) 3.73 M/ L 4.63-6.08 HEMOGLOBIN (BEAKER) (test mkne=108) 10.3 GM/DL 13.7-17.5 HEMATOCRIT (BEAKER) (test snmz=823) 31.7 % 40.1-51.0 MEAN CORPUSCULAR VOLUME (BEAKER) (test vfyc=537) 85.0 fL 79.0-92.2 MEAN CORPUSCULAR HEMOGLOBIN (BEAKER) (test 27.6 pg 25.7-32.2 wpmh=812) MEAN CORPUSCULAR HEMOGLOBIN CONC (BEAKER) (test 32.5 GM/DL 32.3-36.5 kwlw=845) RED CELL DISTRIBUTION WIDTH (BEAKER) (test 17.7 % 11.6-14.4 xrwn=416) PLATELET COUNT (BEAKER) (test gpmk=355) 221 K/CU MM 150-450 MEAN PLATELET VOLUME (BEAKER) (test scej=280) 10.9 fL 9.4-12.4 NUCLEATED RED BLOOD CELLS (BEAKER) (test 0 /100 WBC 0-0 oqvz=406) NEUTROPHILS RELATIVE PERCENT (BEAKER) (test 55 % lsdi=669) LYMPHOCYTES RELATIVE PERCENT (BEAKER) (test 28 % urbw=168) MONOCYTES RELATIVE PERCENT (BEAKER) (test 13 % wzgv=737) EOSINOPHILS RELATIVE PERCENT (BEAKER) (test 3 % fbrj=672) BASOPHILS RELATIVE PERCENT (BEAKER) (test 1 % pqvu=270) NEUTROPHILS ABSOLUTE COUNT (BEAKER) (test 3.41 K/ L 1.78-5.38 qdek=592) LYMPHOCYTES ABSOLUTE COUNT (BEAKER) (test 1.70 K/ L 1.32-3.57 ujhk=913) MONOCYTES ABSOLUTE COUNT (BEAKER) (test 0.79 K/ L 0.30-0.82 kbfh=855) EOSINOPHILS ABSOLUTE COUNT (BEAKER) (test 0.20 K/ L 0.04-0.54 lzyz=656) BASOPHILS ABSOLUTE COUNT (BEAKER) (test 0.07 K/ L 0.01-0.08 adlg=802) IMMATURE GRANULOCYTES-RELATIVE PERCENT (BEAKER) 0 % 0-1 (test glgp=2232) POCT-GLUCOSE [id number] 20:31:00 Test Item Value Reference Range Comments POC-GLUCOSE METER (BEAKER) 193 mg/dL 70-110 TESTED AT [facility] [address] [facility] (test dxrc=5507) [facility] [address] BODY FLUID CELL COUNT WITH [id number] 17:35:00 Test Item Value Reference Range Comments APPEARANCE FLUID (BEAKER) (test xwfq=405) Clear Clear COLOR FLUID (BEAKER) (test aknr=265) Straw Colorless, Straw RBC FLUID (BEAKER) (test lhdf=971) 728 /cu mm <=1 ADJUSTED WBC FLUID (BEAKER) (test kowt=1143) 85 /cu mm <=5 LINING CELLS (BEAKER) (test zmsg=0879) 4 /cu mm <=1 NEUTROPHILS FLUID (BEAKER) (test wnrn=9632) 15 % LYMPHS FLUID (BEAKER) (test eyoi=955) 45 % MONO/MACROPHAGE FLUID (BEAKER) (test rvkx=259) 40 % EOSINOPHILS FLUID (BEAKER) (test aalw=341) 0 % BASO FLUID (BEAKER) (test jpdl=709) 0 % CONTAINER BODY FLUID (BEAKER) (test jzfx=7099) EDTA Tube POCT-GLUCOSE [id number] 16:48:00 Test Item Value Reference Range Comments POC-GLUCOSE METER (BEAKER) 104 mg/dL 70-110 TESTED AT [address] (test kaas=1049) [place] [id number] 14:29:00 Test Item Value Reference Range Comments FERRITIN (BEAKER) (test kepl=103) 119 ng/mL 5-275 SHIGA TOXIN [id number] 14:02:00 Test Item Value Reference Range Comments SHIGA TOXIN 1 (BEAKER) (test necy=8710) Not detected Not detected SHIGA TOXIN 2 (BEAKER) (test omth=4026) Not detected Not detected IRON, TIBC, % SAT. (WITHOUT FERRITIN)2018-11-19 14:00:00 Test Item Value Reference Range Comments IRON (BEAKER) (test ncwm=877) 47.0 ug/dL 40.0-160.0 TOTAL IRON BINDING CAPACITY (BEAKER) (test 231 ug/dL 250-450 nsle=136) IRON % SATURATION (2) (BEAKER) (test aahn=8025) 20 % 20-55 POCT-GLUCOSE [id number] 12:35:00 Test Item Value Reference Range Comments POC-GLUCOSE METER (BEAKER) 154 mg/dL 70-110 TESTED AT [address] (test ijmx=4729) [place] [address] POCT-GLUCOSE [id number] 12:35:00 Test Item Value Reference Range Comments POC-GLUCOSE METER (BEAKER) 186 mg/dL 70-110 TESTED AT [address] (test xxnu=3326) [place] [address] ANTI-NUCLEAR ANTIBODY (RANJANA)2018-11-19 10:03:00 Test Item Value Reference Range Comments ANTI-NUCLEAR ANTIBODY (RANJANA) (BEAKER) (test Negative Negative btmv=817) Test performed by IFA method.Test performed by IFA method.[id number] 05:56:00 Test Item Value Reference Range Comments PHOSPHORUS (BEAKER) (test qjbc=185) 3.3 mg/dL 2.3-4.7 [id number] 05:56:00 Test Item Value Reference Range Comments MAGNESIUM (BEAKER) (test otuy=224) 1.8 mg/dL 1.6-2.6 BASIC METABOLIC [id number] 05:56:00 Test Item Value Reference Range Comments SODIUM (BEAKER) (test 133 meq/L 136-145 kbvv=529) POTASSIUM (BEAKER) (test 3.6 meq/L 3.5-5.1 gvmk=464) CHLORIDE (BEAKER) (test 101 meq/L 98-107 pirl=704) CO2 (BEAKER) (test 22 meq/L 22-29 yerh=524) BLOOD UREA NITROGEN 39 mg/dL 7-21 (BEAKER) (test xubm=194) CREATININE (BEAKER) (test 1.59 mg/dL 0.57-1.25 qyut=212) GLUCOSE RANDOM (BEAKER) 190 mg/dL 70-105 (test vbba=000) CALCIUM (BEAKER) (test 9.0 mg/dL 8.4-10.2 knhe=155) EGFR (BEAKER) (test 42 mL/min/1.73 sq m ESTIMATED GFR IS NOT brrt=0040) ACCURATE CREATININE CLEARANCE IN PREDICTING GLOMERULAR FILTRATION RATE. ESTIMATED GFR IS NOT APPLICABLE FOR DIALYSIS PATIENTS. HEPATIC FUNCTION [id number] 05:56:00 Test Item Value Reference Range Comments TOTAL PROTEIN (BEAKER) (test hcfl=552) 6.1 gm/dL 6.0-8.3 ALBUMIN (BEAKER) (test ozyj=3574) 2.8 g/dL 3.5-5.0 BILIRUBIN TOTAL (BEAKER) (test zoef=056) 0.3 mg/dL 0.2-1.2 BILIRUBIN DIRECT (BEAKER) (test htjy=942) 0.2 mg/dL 0.1-0.5 ALKALINE PHOSPHATASE (BEAKER) (test wwec=007) 117 U/L 40-150 AST (SGOT) (BEAKER) (test cwsh=350) 15 U/L 5-34 ALT (SGPT) (BEAKER) (test yvrz=632) 10 U/L 6-55 PROTHROMBIN [id number] 05:09:00 Test Item Value Reference Range Comments PROTIME (BEAKER) (test srsp=377) 15.2 seconds 11.9-14.2 INR (BEAKER) (test jjdw=321) 1.3 <=5.9 Effective 07/17/2018: PT Reference Range ChangeNew: 11.9-14.2 Previous: 11.7- 14.7RECOMMENDED COUMADIN/WARFARIN INR THERAPY RANGESSTANDARD DOSE: 2.0-3.0 Includes: PROPHYLAXIS for venous thrombosis, systemic embolization; TREATMENT for venous thrombosis and/or pulmonary embolus.HIGH RISK: Target INR is2.5-3.5 for patients wiht mechanical heart valves.CBC W/PLT COUNT & AUTO [id number] 05:02:00 Test Item Value Reference Range Comments WHITE BLOOD CELL COUNT (BEAKER) (test rzhk=460) 8.7 K/ L 3.5-10.5 RED BLOOD CELL COUNT (BEAKER) (test hyvg=060) 3.86 M/ L 4.63-6.08 HEMOGLOBIN (BEAKER) (test jizy=349) 10.4 GM/DL 13.7-17.5 HEMATOCRIT (BEAKER) (test suty=469) 32.7 % 40.1-51.0 MEAN CORPUSCULAR VOLUME (BEAKER) (test rfcs=453) 84.7 fL 79.0-92.2 MEAN CORPUSCULAR HEMOGLOBIN (BEAKER) (test 26.9 pg 25.7-32.2 aiex=535) MEAN CORPUSCULAR HEMOGLOBIN CONC (BEAKER) (test 31.8 GM/DL 32.3-36.5 uddt=092) RED CELL DISTRIBUTION WIDTH (BEAKER) (test 17.4 % 11.6-14.4 wgfn=715) PLATELET COUNT (BEAKER) (test bsjg=380) 244 K/CU MM 150-450 MEAN PLATELET VOLUME (BEAKER) (test cbyg=276) 11.1 fL 9.4-12.4 NUCLEATED RED BLOOD CELLS (BEAKER) (test 0 /100 WBC 0-0 mtia=013) NEUTROPHILS RELATIVE PERCENT (BEAKER) (test 59 % tjfx=577) LYMPHOCYTES RELATIVE PERCENT (BEAKER) (test 23 % lwsj=065) MONOCYTES RELATIVE PERCENT (BEAKER) (test 14 % tqva=186) EOSINOPHILS RELATIVE PERCENT (BEAKER) (test 3 % zrcs=026) BASOPHILS RELATIVE PERCENT (BEAKER) (test 1 % tbqi=341) NEUTROPHILS ABSOLUTE COUNT (BEAKER) (test 5.10 K/ L 1.78-5.38 pser=179) LYMPHOCYTES ABSOLUTE COUNT (BEAKER) (test 2.04 K/ L 1.32-3.57 ugat=207) MONOCYTES ABSOLUTE COUNT (BEAKER) (test 1.26 K/ L 0.30-0.82 jonw=829) EOSINOPHILS ABSOLUTE COUNT (BEAKER) (test 0.22 K/ L 0.04-0.54 jupa=508) BASOPHILS ABSOLUTE COUNT (BEAKER) (test 0.07 K/ L 0.01-0.08 vrmq=912) IMMATURE GRANULOCYTES-RELATIVE PERCENT (BEAKER) 0 % 0-1 (test pttu=6665) POCT-GLUCOSE [id number] 21:19:00 Test Item Value Reference Range Comments POC-GLUCOSE METER (BEAKER) 193 mg/dL 70-110 TESTED AT [address] (test slur=8485) [place] [address] C. DIFFICILE GDH [id number] 19:42:00 Test Item Value Reference Range Comments CDT TOXIN (test Negative Negative izkq=[id number]) CDT GDH ANTIGEN (test Negative Negative No indication of Clostridium iynw=[id number]) difficile infection and no colonization. Discontinue enteric isolation and therapy. Testing performed by [employer] Rapid Cassette Assay. For GDH, published sensitivity of the assay is 98.7% compared to cytotoxicity testing. For Toxin AB, published sensitivity is 87.8% and specificity 99.4% compared to cytotoxicity testing.Verification of kit performance was done by the [facility] Microbiology Lab prior to clinical use.POCT-GLUCOSE [id number] 18:07:00 Test Item Value Reference Range Comments POC-GLUCOSE METER (BEAKER) 134 mg/dL 70-110 TESTED AT [address] (test fxjv=3089) [place] [address] RAD, CHEST, 2 [id number] 13:37:00Reason for exam:->evaluate lungs for effusionFINAL REPORT [...] MDReport Verified Date/Time: 11/18/2018 13:37:10 Reading Location: [facility] Mammo Reading Room POCT- GLUCOSE [id number] 12:08:00 Test Item Value Reference Range Comments POC-GLUCOSE METER (BEAKER) 151 mg/dL 70-110 TESTED AT [address] (test fbeb=8759) [place] [id number] POCT-GLUCOSE [id number] 08:44:00 Test Item Value Reference Range Comments POC-GLUCOSE METER (BEAKER) 153 mg/dL 70-110 TESTED AT [address] (test aubs=9026) [place] [address] HEMOGLOBIN [id number] 08:17:00 Test Item Value Reference Range Comments HEMOGLOBIN A1C (BEAKER) (test irfm=157) 10.9 % 4.3-6.1 URINALYSIS W/ REFLEX URINE [id number] 06:54:00 Test Item Value Reference Range Comments COLOR (BEAKER) (test zawt=091) Yellow CLARITY (BEAKER) (test qjvi=892) Hazy SPECIFIC GRAVITY UA (BEAKER) (test abdd=395) 1.015 1.001-1.035 PH UA (BEAKER) (test vuuh=518) 5.0 5.0-8.0 PROTEIN UA (BEAKER) (test fxxc=495) 20 mg/dL Negative GLUCOSE UA (BEAKER) (test trbm=002) >1000 mg/dL Negative KETONES UA (BEAKER) (test vuvm=770) Negative Negative BILIRUBIN UA (BEAKER) (test zzmq=001) Negative Negative BLOOD UA (BEAKER) (test uyiz=387) Negative Negative NITRITE UA (BEAKER) (test qkmr=751) Negative Negative LEUKOCYTE ESTERASE UA (BEAKER) (test wvwd=065) Large Negative UROBILINOGEN UA (BEAKER) (test ctga=695) 0.2 mg/dL 0.2-1.0 RBC UA (BEAKER) (test quph=546) 2 /HPF WBC UA (BEAKER) (test wgoy=696) 12 /HPF BACTERIA (BEAKER) (test fuhp=713) Rare SQUAMOUS EPITHELIAL (BEAKER) (test vdmn=894) 11 /HPF HYALINE CASTS (BEAKER) (test kqwc=954) 3 /LPF SOURCE(BEAKER) (test eyel=1572) HEPATITIS B [id number] 05:07:00 Test Item Value Reference Range Comments HEPATITIS B CORE TOTAL ANTIBODY (BEAKER) (test Nonreactive Nonreactive recm=542) HEPATITIS B SURFACE ANTIBODY (BEAKER) (test < mIU/mL <8.0 ivwf=976) HEPATITIS B SURFACE ANTIGEN (2) (BEAKER) (test Nonreactive Nonreactive yzsq=1904) HEPATITIS C [id number] 04:53:00 Test Item Value Reference Range Comments HEPATITIS C ANTIBODY (BEAKER) (test xdmo=989) Nonreactive Nonreactive TSH/FREE T4 IF [id number] 04:53:00 Test Item Value Reference Range Comments THYROID STIMULATING HORMONE (BEAKER) (test 3.05 uIU/mL 0.35-4.94 pbwt=911) [id number] 04:40:00 Test Item Value Reference Range Comments PROCALCITONIN (BEAKER) (test nfcu=4488) 0.07 ng/mL <0.05 SEPSIS RISK (ng/mL)Low: 0.05-0.50Intermediate: 0.51-2.00High: & gt;=[id number] 04:38:00 Test Item Value Reference Range Comments AMMONIA (BEAKER) (test ekoy=458) 20 mol/L 18-72 [id number] 04:29:00 Test Item Value Reference Range Comments PHOSPHORUS (BEAKER) (test ifdp=094) 4.2 mg/dL 2.3-4.7 [id number] 04:29:00 Test Item Value Reference Range Comments MAGNESIUM (BEAKER) (test sxza=923) 1.7 mg/dL 1.6-2.6 BASIC METABOLIC [id number] 04:29:00 Test Item Value Reference Range Comments SODIUM (BEAKER) (test 135 meq/L 136-145 rmqk=997) POTASSIUM (BEAKER) (test 3.7 meq/L 3.5-5.1 npou=128) CHLORIDE (BEAKER) (test 101 meq/L 98-107 xtjz=921) CO2 (BEAKER) (test 23 meq/L 22-29 vfra=975) BLOOD UREA NITROGEN 37 mg/dL 7-21 (BEAKER) (test erea=840) CREATININE (BEAKER) (test 1.77 mg/dL 0.57-1.25 aayw=417) GLUCOSE RANDOM (BEAKER) 165 mg/dL 70-105 (test prmb=922) CALCIUM (BEAKER) (test 9.0 mg/dL 8.4-10.2 zcpn=045) EGFR (BEAKER) (test 37 mL/min/1.73 sq m ESTIMATED GFR IS NOT fxcg=5680) ACCURATE CREATININE CLEARANCE IN PREDICTING GLOMERULAR FILTRATION RATE. ESTIMATED GFR IS NOT APPLICABLE FOR DIALYSIS PATIENTS. LIPID [id number] 04:29:00 Test Item Value Reference Range Comments TRIGLYCERIDES (BEAKER) (test rpjh=076) 92 mg/dL CHOLESTEROL (BEAKER) (test etlx=611) 123 mg/dL HDL CHOLESTEROL (BEAKER) (test xbcc=260) 36 mg/dL LDL CHOLESTEROL CALCULATED (BEAKER) (test 69 mg/dL cbgj=205) Triglyceride Reference Range: Low Risk <150 Borderline 150- 199 High Risk 200-499 Very High Risk >=500Cholesterol Reference Range: Low Risk <200 Borderline 200-239 High Risk > 240HDL Cholesterol Reference Range: Low Risk >=60 High Risk <40LDL Cholesterol Reference Range: Optimal <100 Near Optimal 100-129 Borderline 130-159 High 160-189 Very High >=190HEPATIC FUNCTION [id number] 04:29:00 Test Item Value Reference Range Comments TOTAL PROTEIN (BEAKER) (test kjru=701) 6.0 gm/dL 6.0-8.3 ALBUMIN (BEAKER) (test pjeo=9523) 2.8 g/dL 3.5-5.0 BILIRUBIN TOTAL (BEAKER) (test wqri=295) 0.4 mg/dL 0.2-1.2 BILIRUBIN DIRECT (BEAKER) (test mcsx=022) 0.2 mg/dL 0.1-0.5 ALKALINE PHOSPHATASE (BEAKER) (test iqpi=721) 112 U/L 40-150 AST (SGOT) (BEAKER) (test jnqs=392) 16 U/L 5-34 ALT (SGPT) (BEAKER) (test sqyg=855) 11 U/L 6-55 [id number] 04:29:00 Test Item Value Reference Range Comments AMYLASE (BEAKER) (test fpas=338) 38 U/L 25-125 [id number] 04:29:00 Test Item Value Reference Range Comments LIPASE (BEAKER) (test cgfu=018) 47 U/L 8-78 LACTIC ACID, [id number] 03:58:00 Test Item Value Reference Range Comments LACTATE BLOOD VENOUS (2) 1.0 mmol/L 0.5-2.2 Specimen slightly hemolyzed (BEAKER) (test xlhx=6427) PROTHROMBIN [id number] 03:53:00 Test Item Value Reference Range Comments PROTIME (BEAKER) (test dplb=042) 14.7 seconds 11.9-14.2 INR (BEAKER) (test iuct=830) 1.2 <=5.9 Effective 07/17/2018: PT Reference Range ChangeNew: 11.9-14.2 Previous: 11.7- 14.7RECOMMENDED COUMADIN/WARFARIN INR THERAPY RANGESSTANDARD DOSE: 2.0-3.0 Includes: PROPHYLAXIS for venous thrombosis, systemic embolization; TREATMENT for venous thrombosis and/or pulmonary embolus.HIGH RISK: Target INR is2.5-3.5 for patients wiht mechanical heart valves.CBC W/PLT COUNT & AUTO [id number] 03:49:00 Test Item Value Reference Range Comments WHITE BLOOD CELL COUNT (BEAKER) (test tdux=849) 10.2 K/ L 3.5-10.5 RED BLOOD CELL COUNT (BEAKER) (test oqpl=800) 3.67 M/ L 4.63-6.08 HEMOGLOBIN (BEAKER) (test czqq=960) 9.9 GM/DL 13.7-17.5 HEMATOCRIT (BEAKER) (test lyzf=450) 31.3 % 40.1-51.0 MEAN CORPUSCULAR VOLUME (BEAKER) (test gmoo=237) 85.3 fL 79.0-92.2 MEAN CORPUSCULAR HEMOGLOBIN (BEAKER) (test 27.0 pg 25.7-32.2 sqhf=210) MEAN CORPUSCULAR HEMOGLOBIN CONC (BEAKER) (test 31.6 GM/DL 32.3-36.5 fxrq=803) RED CELL DISTRIBUTION WIDTH (BEAKER) (test 17.5 % 11.6-14.4 ruvy=948) PLATELET COUNT (BEAKER) (test kpzy=370) 219 K/CU MM 150-450 MEAN PLATELET VOLUME (BEAKER) (test pzxg=524) 10.9 fL 9.4-12.4 NUCLEATED RED BLOOD CELLS (BEAKER) (test 0 /100 WBC 0-0 csqi=798) NEUTROPHILS RELATIVE PERCENT (BEAKER) (test 68 % lvfi=641) LYMPHOCYTES RELATIVE PERCENT (BEAKER) (test 20 % owrh=575) MONOCYTES RELATIVE PERCENT (BEAKER) (test 10 % xtvw=367) EOSINOPHILS RELATIVE PERCENT (BEAKER) (test 1 % azsn=418) BASOPHILS RELATIVE PERCENT (BEAKER) (test 1 % prtw=793) NEUTROPHILS ABSOLUTE COUNT (BEAKER) (test 6.87 K/ L 1.78-5.38 numg=520) LYMPHOCYTES ABSOLUTE COUNT (BEAKER) (test 2.02 K/ L 1.32-3.57 gyrx=052) MONOCYTES ABSOLUTE COUNT (BEAKER) (test 1.04 K/ L 0.30-0.82 hrvv=361) EOSINOPHILS ABSOLUTE COUNT (BEAKER) (test 0.14 K/ L 0.04-0.54 pjqz=711) BASOPHILS ABSOLUTE COUNT (BEAKER) (test 0.06 K/ L 0.01-0.08 hqcb=138) IMMATURE GRANULOCYTES-RELATIVE PERCENT (BEAKER) 0 % 0-1 (test zkcz=3029) POCT-GLUCOSE [id number] 22:57:00 Test Item Value Reference Range Comments POC-GLUCOSE METER (BEAKER) 177 mg/dL 70-110 TESTED AT [facility] [address] [facility] (test sptg=0348) [facility] [id number]
[2019-01-13] MEDS: LACTULOSE 20 GM/30 ML UCUP PO SCH (20:57)
[2019-01-13] MEDS: GLUCERNA SHAKE 237 ML CAN PO SCH (20:57)
[2019-01-13] MEDS: Rifaximin 550 MG Tab PO SCH (20:57)
[2019-01-13] MEDS: INSULIN -REGULAR HUMAN 50 UNIT/0.5 ML ML SQ SCH (20:58)
[2019-01-13] MEDS ORDERED: FLUCONAZOLE 100mg IVPB 100 MG/50 ML BAG IV SCH (21:00)
[2019-01-14 06:24] LABS: Basophils % 0.5 % (0-1.3); Hematocrit 34.5 % (39.6-49.0); Lymphocytes % 25.4 % (15.3-44.8); MPV 9.1 fL (7.6-11.3); RBC Red Blood Cell Count 3.98 M/uL (4.33-5.43)
[2019-01-14 06:36] LABS: Albumin 2.2 g/dL (3.4-5.0); Magnesium 1.8 mg/dL (1.8-2.4); Potassium 3.9 mmol/L (3.5-5.1); Prealbumin 9.8 mg/dL (20-40)
[2019-01-14] MEDS: INSULIN -REGULAR HUMAN 50 UNIT/0.5 ML ML SQ SCH ×4 (07:30→19:19)
[2019-01-14] MEDS: SPIRONOLACTONE 25 MG TABLET PO SCH (08:00)
[2019-01-14] MEDS: Rifaximin 550 MG Tab PO SCH ×2 (08:00→19:20)
[2019-01-14] MEDS: FINASTERIDE 5 MG TAB PO SCH (08:00)
[2019-01-14] MEDS: MAGNESIUM OXIDE 400 MG TAB PO SCH (08:00)
[2019-01-14] MEDS: FUROSEMIDE 20 MG TABLET PO SCH (08:00)
[2019-01-14] MEDS: INSULIN GLARGINE 100 UNITS/ML SQ SCH (08:00)
[2019-01-14] MEDS: allopurinoL 300 MG TAB PO SCH (08:00)
[2019-01-14] MEDS: CYANOCOBALAMIN 1,000 MCG TAB PO SCH (08:00)
[2019-01-14] MEDS ORDERED: PANTOPRAZOLE 40 MG INJ IVP SCH (08:00)
[2019-01-14] MEDS: ASPIRIN EC 81 MG TAB PO SCH (08:00)
[2019-01-14] MEDS: LACTULOSE 20 GM/30 ML UCUP PO SCH ×3 (09:00→19:20)
--- NOTE | 2019-01-14 10:52 | FAST ---
SHIFT START DATE/TIME: 01/14/2019 07:00 (WIRE WINDING MACHINE TENDER) SHIFT END DATE/TIME: 01/14/2019 19:00 (WIRE WINDING MACHINE TENDER) NAME MAURY CRUZ DATE OF : 1935 DATE OF ADMISSION: 01/13/2019 17:07 (WIRE WINDING MACHINE TENDER) PHONE: AGE: 83 SSN# [id number] GENDER: Male ENCOUNTER PHYSICIAN: Dr. Alexy Butler M.D. ADMISSION DIAGNOSIS: - Debility 16 - Debility (16) Liver Cirrhosis. EATING: EATING - STEP 1: Does the patient complete the activity by him/herself with no assistance (physical, verbal/nonverbal cueing, setup/clean-up)? No. EATING - STEP 2: Does the patient need only setup/clean-up assistance from one helper? No. EATING - STEP 3: Does the patient need only verbal/nonverbal cueing or touching/steadying/contact guard assistance fro m one helper? No. EATING - STEP 4: Does the patient need physical assistance - for example lifting or trunk support from one helper - wi th the helper providing less than half of the effort? Yes. 1. [id number] ADMISSION PERFORMANCE: Partial/moderate assistance CODE: 03 ORAL HYGIENE: ORAL HYGIENE - STEP 1: Does the patient complete the activity by him/herself with no assistance (physical, verbal/nonverbal cueing, setup/clean-up)? No. ORAL HYGIENE - STEP 2: Does the patient need only setup/clean-up assistance from one helper? No. ORAL HYGIENE - STEP 3: Does the patient need only verbal/nonverbal cueing or touching/steadying/contact guard assistance fro m one helper? Yes. 1. [id number] ADMISSION PERFORMANCE: Supervision or touching assistance CODE: 04 TOILETING HYGIENE: TOILETING HYGIENE - STEP 1: Does the patient complete the activity by him/herself with no assistance (physical, verbal/nonverbal cueing, setup/clean-up)? No. TOILETING HYGIENE - STEP 2: Does the patient need only setup/clean-up assistance from one helper? No. TOILETING HYGIENE - STEP 3: Does the patient need only verbal/nonverbal cueing or touching/steadying/contact guard assistance fro m one helper? Yes. 1. [id number] ADMISSION PERFORMANCE: Supervision or touching assistance CODE: 04 BATHING: Not assessed/no information CODE: - DRESSING - UPPER BODY: Not assessed/no information CODE: - DRESSING - LOWER BODY: Not assessed/no information CODE: - PUTTING ON/TAKING OFF FOOTWEAR: Not assessed/no information CODE: - ROLL LEFT AND RIGHT: Not assessed/no information CODE: - SIT TO LYING: Not assessed/no information CODE: - LYING TO SITTING: Not assessed/no information CODE: - SIT TO STAND: SIT TO STAND - STEP 1: Does the patient complete the activity by him/herself with no assistance (physical, verbal/nonverbal cueing, setup/clean-up)? No. SIT TO STAND - STEP 2: Does the patient need only setup/clean-up assistance from one helper? No. SIT TO STAND - STEP 3: Does the patient need only verbal/nonverbal cueing or touching/steadying/contact guard assistance fro m one helper? Yes. 1. [id number] ADMISSION PERFORMANCE: Supervision or touching assistance CODE: 04 TRANSFERS: BED, CHAIR: CHAIR/[id number] TRANSFER - STEP 1: Does the patient complete the activity by him/herself with no assistance (physical, verbal/nonverbal cueing, setup/clean-up)? No. CHAIR/[id number] TRANSFER - STEP 2: Does the patient need only setup/clean-up assistance from one helper? No. CHAIR/[id number] TRANSFER - STEP 3: Does the patient need only verbal/nonverbal cueing or touching/steadying/contact guard assistance fro m one helper? No. CHAIR/[id number] TRANSFER - STEP 4: Does the patient need physical assistance - for example lifting or trunk support from one helper - wi th the helper providing less than half of the effort? Yes. 1. [id number] ADMISSION PERFORMANCE: Partial/moderate assistance CODE: 03 TRANSFER TOILET: TOILET TRANSFER - STEP 1: Does the patient complete the activity by him/herself with no assistance (physical, verbal/nonverbal cueing, setup/clean-up)? No. TOILET TRANSFER - STEP 2: Does the patient need only setup/clean-up assistance from one helper? No. TOILET TRANSFER - STEP 3: Does the patient need only verbal/nonverbal cueing or touching/steadying/contact guard assistance fro m one helper? Yes. 1. [id number] ADMISSION PERFORMANCE: Supervision or touching assistance CODE: 04 TRANSFERS: CAR: Not assessed/no information CODE: - WALK 10 FEET: Not assessed/no information CODE: - 1 STEP (CURB): Not assessed/no information CODE: - PICKING UP OBJECT: Not assessed/no information CODE: - DOES THE PATIENT USE A WHEELCHAIR/SCOOTER? CODE: EXPR WHEEL 50 FEET WITH TWO TURNS: Not assessed/no information CODE: - INDICATE THE TYPE OF WHEELCHAIR/SCOOTER USED: CODE: EXPR WHEEL 150 FEET: Not assessed/no information CODE: - INDICATE THE TYPE OF WHEELCHAIR/SCOOTER USED: CODE: EXPR BLADDER AND BOWEL: H350. BLADDER CONTINENCE (3-DAY ASSESSMENT PERIOD): Stress incontinence only CODE: 1 H400. BOWEL CONTINENCE (3-DAY ASSESSMENT PERIOD): Always continent CODE: 0 SIGNATURE PANEL: The following modified sections: 1. [id number] Admission Performance, 1. [id number] Admission Performance, 1. [id number] Admission Performance, 1. [id number] Admission Performance, 1. [id number] Admission Performance, 1. [id number] Admission Performance, 1. [id number] Admission Performance, 1. [id number] Admission Performance , Code, H350. Bladder Continence (3-day assessment period), H400. Bowel Continence (3-day assessment period) were [electronically] signed by Masoud Lynn on SunJan 14 2019 10:51:19 GMT-0600 ([facility])
[2019-01-14] MEDS ORDERED: FLUCONAZOLE 100 MG TAB PO ONE (11:52)
[2019-01-14] MEDS ORDERED: PANTOPRAZOLE 40MG TABLET PO ONE (11:52)
[2019-01-14] MEDS: GLUCERNA SHAKE 237 ML CAN PO SCH ×2 (13:14→19:19)
--- NOTE | 2019-01-14 14:11 | FAST ---
ENCOUNTER DATE AND TIME: 01/14/2019 08:00 (ASSISTANT MANAGER) NAME MAURY CRUZ DATE OF : 1935 DATE OF ADMISSION: 01/13/2019 17:07 (ASSISTANT MANAGER) PHONE: AGE: 83 N# [id number] GENDER: Male ENCOUNTER PHYSICIAN: Dr. Alexy Butler M.D. ADMISSION DIAGNOSIS: - Debility 16 - Debility (16) Liver Cirrhosis. ROLL LEFT AND RIGHT: ROLL LEFT AND RIGHT - STEP 1: Does the patient complete the activity by him/herself with no assistance (physical, verbal/nonverbal cueing, setup/clean-up)? No. ROLL LEFT AND RIGHT - STEP 2: Does the patient need only setup/clean-up assistance from one helper? No. ROLL LEFT AND RIGHT - STEP 3: Does the patient need only verbal/nonverbal cueing or touching/steadying/contact guard assistance fro m one helper? Yes. 1. [id number] ADMISSION PERFORMANCE: Supervision or touching assistance CODE: 04 SIT TO LYING: SIT TO LYING - STEP 1: Does the patient complete the activity by him/herself with no assistance (physical, verbal/nonverbal cueing, setup/clean-up)? No. SIT TO LYING - STEP 2: Does the patient need only setup/clean-up assistance from one helper? No. SIT TO LYING - STEP 3: Does the patient need only verbal/nonverbal cueing or touching/steadying/contact guard assistance fro m one helper? Yes. 1. [id number] ADMISSION PERFORMANCE: Supervision or touching assistance CODE: 04 LYING TO SITTING: LYING TO SITTING ON SIDE OF BED - STEP 1: Does the patient complete the activity by him/herself with no assistance (physical, verbal/nonverbal cueing, setup/clean-up)? No. LYING TO SITTING ON SIDE OF BED - STEP 2: Does the patient need only setup/clean-up assistance from one helper? No. LYING TO SITTING ON SIDE OF BED - STEP 3: Does the patient need only verbal/nonverbal cueing or touching/steadying/contact guard assistance fro m one helper? Yes. 1. [id number] ADMISSION PERFORMANCE: Supervision or touching assistance CODE: 04 SIT TO STAND: SIT TO STAND - STEP 1: Does the patient complete the activity by him/herself with no assistance (physical, verbal/nonverbal cueing, setup/clean-up)? No. SIT TO STAND - STEP 2: Does the patient need only setup/clean-up assistance from one helper? No. SIT TO STAND - STEP 3: Does the patient need only verbal/nonverbal cueing or touching/steadying/contact guard assistance fro m one helper? Yes. 1. [id number] ADMISSION PERFORMANCE: Supervision or touching assistance CODE: 04 TRANSFERS: BED, CHAIR: CHAIR/[id number] TRANSFER - STEP 1: Does the patient complete the activity by him/herself with no assistance (physical, verbal/nonverbal cueing, setup/clean-up)? No. CHAIR/[id number] TRANSFER - STEP 2: Does the patient need only setup/clean-up assistance from one helper? No. CHAIR/[id number]-[id number] TRANSFER - STEP 3: Does the patient need only verbal/nonverbal cueing or touching/steadying/contact guard assistance fro m one helper? Yes. 1. [id number] ADMISSION PERFORMANCE: Supervision or touching assistance CODE: 04 TRANSFER TOILET: TOILET TRANSFER - STEP 1: Does the patient complete the activity by him/herself with no assistance (physical, verbal/nonverbal cueing, setup/clean-up)? No. TOILET TRANSFER - STEP 2: Does the patient need only setup/clean-up assistance from one helper? No. TOILET TRANSFER - STEP 3: Does the patient need only verbal/nonverbal cueing or touching/steadying/contact guard assistance fro m one helper? Yes. 1. [id number] ADMISSION PERFORMANCE: Supervision or touching assistance CODE: 04 TRANSFERS: CAR: Not attempted due to environmental limitations (e.g., lack of equipment, weather constraints) CODE: 10 WALK 10 FEET: WALK 10 FEET - STEP 1: Does the patient complete the activity by him/herself with no assistance (physical, verbal/nonverbal cueing, setup/clean-up)? No. WALK 10 FEET - STEP 2: Does the patient need only setup/clean-up assistance from one helper? No. WALK 10 FEET - STEP 3: Does the patient need only verbal/nonverbal cueing or touching/steadying/contact guard assistance fro m one helper? Yes. 1. [id number] ADMISSION PERFORMANCE: Supervision or touching assistance CODE: 04 WALK 50 FEET: WALK 50 FEET - STEP 1: Does the patient complete the activity by him/herself with no assistance (physical, verbal/nonverbal cueing, setup/clean-up)? No. WALK 50 FEET - STEP 2: Does the patient need only setup/clean-up assistance from one helper? No. WALK 50 FEET - STEP 3: Does the patient need only verbal/nonverbal cueing or touching/steadying/contact guard assistance fro m one helper? Yes. 1. [id number] ADMISSION PERFORMANCE: Supervision or touching assistance CODE: WALK 150 FEET: Not attempted due to medical condition or safety concerns CODE: 88 WALK 10 FEET UNEVEN: Not attempted due to medical condition or safety concerns CODE: 88 1 STEP (CURB): 1 STEP CURB - STEP 1: Does the patient complete the activity by him/herself with no assistance (physical, verbal/nonverbal cueing, setup/clean-up)? No. 1 STEP CURB - STEP 2: Does the patient need only setup/clean-up assistance from one helper? No. 1 STEP CURB - STEP 3: Does the patient need only verbal/nonverbal cueing or touching/steadying/contact guard assistance fro m one helper? Yes. 1. [id number] ADMISSION PERFORMANCE: Supervision or touching assistance CODE: 04 4 STEPS: 4 STEPS - STEP 1: Does the patient complete the activity by him/herself with no assistance (physical, verbal/nonverbal cueing, setup/clean-up)? No. 4 STEPS - STEP 2: Does the patient need only setup/clean-up assistance from one helper? No. 4 STEPS - STEP 3: Does the patient need only verbal/nonverbal cueing or touching/steadying/contact guard assistance fro m one helper? Yes. 1. [id number] ADMISSION PERFORMANCE: Supervision or touching assistance CODE: 12 STEPS: Not attempted due to medical condition or safety concerns CODE: PICKING UP OBJECT: Not attempted due to medical condition or safety concerns CODE: 88 DOES THE PATIENT USE A WHEELCHAIR/SCOOTER? Q1. DOES THE PATIENT USE A WHEELCHAIR/SCOOTER?: No CODE: 0 INDICATE THE TYPE OF WHEELCHAIR/SCOOTER USED: CODE: EXPR INDICATE THE TYPE OF WHEELCHAIR/SCOOTER USED: CODE: EXPR BLADDER AND BOWEL: CODE: EXPR CODE: EXPR SIGNATURE PANEL: The following modified sections: 1. [id number] Admission Performance, 1. [id number] Admission Performance, 1. RC8564F Admission Performance, 1. [id number] Admission Performance, 1. QQ9803S Admission Performance, 1. GF0285D Admission Performance, 1. [id number] Admission Performance, 1. EL1035U Admission Performance , 1. [id number] Admission Performance, 1. NE0063H Admission Performance, Q1. Does the patient use a whee lchair/scooter?, Q1. Does the patient use a wheelchair/scooter? were [electronically] signed by Coy Guzman PT on SunJan 14 2019 14:10:43 T-0600 (Central Standard Time)
--- NOTE | 2019-01-14 18:37 | R.HP ---
FACILITY: [facility] ENCOUNTER DATE AND TIME: 01/14/2019 18:33 (TUMBLER PLATER) MR#: [id number] NAME DIRK CRUZ ADDRESS: [address] [place] [address] CITY: [place]IP [id number] PHONE: DATE OF : 1935 AGE: 83 SSN# [id number] GENDER: Male DEXTERITY Right-handed MARITAL STATUS RACE White PRE-HOSPITAL LIVING SETTING 01 - Home (private home/apt. board/care, assisted living, skilled nursing, transitional living) PRE-HOSPITAL LIVING WITH Family/Relatives ENCOUNTER PHYSICIAN: Dr. Alexy Butler M.D. REFERRING DOCTOR: alessandra Andres DATE OF ADMISSION: 01/13/2019 17:07 (TUMBLER PLATER) REFERRING FACILITY [facility] HOME TYPE AND DETAILS: Type of home: single family house # of levels in the residence: 1 # of steps to enter the residence: 0 # of steps within the residence: 0 ADMISSION DIAGNOSIS: Liver Cirrhosis ONSET DATE: 01/09/2019 PRIMARY DIAGNOSIS-RELATED SURGERIES: No surgeries related to the primary diagnosis were performed. 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 is a 83 yo Right-handed white male. On 01/09/2019 he was admitted to [facility] with diagnosis Liver Cirrhosis. His impairment category is Debility 16 - Debility (16). Pre-morbidly, Pt. was independent/mod-I in Locomotion, Safety Awareness, Balance, Social Cognition, T ransfers Control, Self-Care, Endurance, Sphincter Control, and Communication; and he had good Locomot ion, Balance, Safety Awareness, Social Cognition, Transfers Control, Sphincter Control, Self-Care, Co mmunication, and Endurance. Currently, he has deficits of Locomotion, Balance, Safety Awareness, Social Cognition, Transfers Cont rol, Sphincter Control, Self-Care, and Communication. Pt. is now referred to [facility] for acute in-patient rehabilitation in order to maximize patient's functional independence in activities of daily living, strength, ROM, and mobi lity. Patient has realistic goal of being discharged at assistance level 6-aLyo to reside at Home with Fam denise/Relatives. Dirk Cruz is a83 year old male that lives in a single kelly house with his . He was independent with ADLs and self care. On 01/09/2019, patient was having generalized weakness, excessive sleepiness, abdomen was distended and back pain and was admitted at [facility]. He is now medically stable but in need of 24-hour nursing, doctor supervision and oversite while receiving active and ongoing intensive (PT, OT therapy a day/15 hours per week and receive care with an intensive interdisciplinary approach. 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 SOCIAL HISTORY: - Home Living Family/Relatives REVIEW OF SYSTEMS: - Gen No Chills Fatigue No Fever - Eyes No Double Vision No itchiness - ENMT No Difficulty Swallowing - CVS No Chest Discomfort No Chest Pain Fatigue Weight loss - Resp No Cough Mild shortness of Breath - GI Continent No Abdominal Pain No Constipation No Diarrhea - Continent No Kidney Pain No Painful Urination No Urinary Urgency - MSK No Joint Pain No Muscle Cramps Stiffness - Skin No Itching No Rash No Suspicious Lesions - Neuro Coordination Difficulty No Difficulty with Concentration No Memory Loss No Seizures Weakness - Psych No Anxiety No Depression No HIV Exposure No Persistent Infections No Seasonal Allergies - Endo No Cold/Heat Intolerance No Excessive Hunger No Excessive Thirst No Excessive Urination PHYSICAL EXAM - Gen Alert and awake Lying in bed No apparent distress Oriented to: person, time, and place - Skin No skin breakdown. No abnormalities - Eyes No abnormalities - ENMT No abnormalities - Neck No abnormalities - CVS RRR - Chest No abnormalities - Resp Clear to auscultation - Abd Distended - GI + bowel sounds Deferred - No abnormalities - Ext Mild bilateral lower extremity edema. - MSK 4+/5 weakness in both lower extremities. - Neuro 4/5 strength bilaterally upper and lower extremities. - Psych No abnormalities VITAL SIGNS Temperature: 98.1 F SBP/DBP: 103/55 Pulse: 84 Resp: 18 NURSING: - Shower allowing shower - Lab Results blood Sugar Check ACHS ACTIVITIES OOB only with supervision QI SCORES: - Self-Care A. Eating 05-Setup or clean-up assistance B. Oral hygiene 05-Setup or clean-up assistance C. Toileting hygiene 05-Setup or clean-up assistance E. Shower/bathe self 05-Setup or clean-up assistance F. Upper body dressing 04-Supervision or touching assistance G. Lower body dressing 04-Supervision or touching assistance H. Putting on/taking off footwear 03-Partial/moderate assistance - Mobility A. Roll left and right 04-Supervision or touching assistance B. Sit to lying 03-Partial/moderate assistance C. Lying to sitting on side of bed 03-Partial/moderate assistance D. Sit to stand 03-Partial/moderate assistance E. Chair/fyy-nk-[id number] transfer 03-Partial/moderate assistance F. Toilet transfer 03-Partial/moderate assistance G. Car transfer 88-Not attempted due to medical condition or safety concerns I. Walk 10 feet 04-Supervision or touching assistance J. Walk 50 feet with two turns 04-Supervision or touching assistance K. Walk 150 feet 88-Not attempted due to medical condition or safety concerns L. Walking 10 feet on uneven surfaces 88-Not attempted due to medical condition or safety concerns M. 1 step (curb) 88-Not attempted due to medical condition or safety concerns N. 4 steps 88-Not attempted due to medical condition or safety concerns O. 12 steps 88-Not attempted due to medical condition or safety concerns P. Picking up object 88-Not attempted due to medical condition or safety concerns R. Wheel 50 feet with two turns 02-Substantial/maximal assistance S. Wheel 150 feet 02-Substantial/maximal assistance - Bladder and Bowel Bladder continence 0-Always continent Bowel continence 0-Always continent - Endurance Fair - Balance Fair - Safety Awareness Fair CURRENT FUNC. DEFICITS: Self-Care, Mobility, Endurance, Balance, and Safety Awareness MEDICATIONS: - Other See attached MAR (Medication Administration Record) - N/A Medical management by Dr. Andres. ASSESSMENT: Pt. is a 83 yo Right-handed white male.On 01/09/2019 he was admitted to [facility] with diagnosis Liver Cirrhosis.His impairment category is Debility 16 - Debility (16).Pre-morbid ly, Pt. was independent/mod-I in Locomotion, Safety Awareness, Balance, Social Cognition, Transfers C ontrol, Self-Care, Endurance, Sphincter Control, and Communication; and he had good Locomotion, Darlin ce, Safety Awareness, Social Cognition, Transfers Control, Sphincter Control, Self-Care, Communicatio n, and Endurance.Currently, he has deficits of Locomotion, Balance, Safety Awareness, Social Cognitio n, Transfers Control, Sphincter Control, Self-Care, and Communication.Pt. is now referred to [facility] for acute in-patient rehabilitation in order to maximize patient's function al independence in activities of daily living, strength, ROM, and mobility.- Rehab Goal Patient has realistic goal of being discharged at assistance level 6-Layo to reside at Home with Fam denise/Relatives. Dirk Cruz is a83 year old male that lives in a single kelly house with his . He was independent with ADLs and self care. On 01/09/2019, patient was having generalized weakness, excessive sleepiness, abdomen was distended and back pain and was admitted at [facility]. He is now medically stable but in need of 24-hour nursing, doctor supervision and oversite while receiving active and ongoing intensive (PT, OT therapy a day/15 hours per week and receive care with an intensive interdisciplinary approach.REHAB PLAN: - Physical Therapy Gait dysfunction - to improve, our physical therapists will perform initial evaluation of pt's status upon admission and devise an individualized program for Gait Training, and Wheel Chair mobility Inability to transfer - to improve, our physical therapists will perform initial evaluation of pt's s tatus upon admission and devise an individualized program for Bed mobility Need for home safety evaluation - to improve, our physical therapists will perform initial evaluation of pt's status upon admission and devise an individualized program for Home Evaluation Need in caregiver upon discharge - to improve, our physical therapists will perform initial evaluatio n of pt's status upon admission and devise an individualized program for Caregiver Training Edema - to improve, our physical therapists will perform initial evaluation of pt's status upon admi ssion and devise an individualized program for Elevation Training, and Lymphedema Therapy New precaution - to improve, our physical therapists will perform initial evaluation of pt's status u fabrice admission and devise an individualized program for Patient precaution education Poor balance - to improve, our physical therapists will perform initial evaluation of pt's status upo n admission and devise an individualized program for Balance Training Weakness - to improve, our physical therapists will perform initial evaluation of pt's status upon ad mission and devise an individualized program for Aquatic Therapy, Neuromuscular Reeducation, and Stre ngthening Achieving independence - to improve, our physical therapists will perform initial evaluation of pt's status upon admission and devise an individualized program for Community Reintegration Activities - Occupational Therapy ADL deficits - to improve, our occupation therapists will perform initial evaluation of pt's status u fabrice admission and devise an individualized program for Bathing, Bed mobility, Community Reintegration , Cooking, Dressing, Eating, Fine Motor Skills, Grooming, Homemaking, Kitchen Mobility, Laundry, Sabina ent Education, Safety Awareness, Splinting - Positioning, Transfers(Toilet, Tub, Shower), and Wheel C hair Management Cognitive deficits - to improve, our occupation therapists will perform initial evaluation of pt's st atus upon admission and devise an individualized program for Cognition - orientation Need for care coordination manager - to improve, our occupation therapists will perform initial evaluation of pt's s tatus upon admission and devise an individualized program for Caregiver Training Weakness - to improve, our occupation therapists will perform initial evaluation of pt's status upon admission and devise an individualized program for Aquatic Therapy, Balance, Endurance, UE ROM, and U E strengthening MEDICAL PLAN: - Diet Type Start Regular - Diet - Liquid Texture Start Regular - Tube Feed Start N/A - Lab Results blood Sugar Check ACHS - N/A Medical management by Dr. Andres. - Other See attached MAR (Medication Administration Record) - Diet - Solid Texture Regular - Shower shower DISCHARGE PLAN: - Estimated Length of Stay (days) 13. - Consensus on plan Discharge plan has been discussed with primary caregiver. Patient/Family is in agreement with the venus n. Primary caregiver is in agreement with the plan. - Patient/Family Goals Return home with assistance. - Planned Living Setting Upon Discharge Home, to live with Family/Relatives. Transitional Living. SIGNATURE PANEL: (TUMBLER PLATER)
--- NOTE | 2019-01-14 18:39 | PAPE ---
PATIENT: [facility] MR# [id number] REFERRING DOCTOR alessandra Andres EVALUATION DATE AND TIME 01/14/2019 18:37 (DEPUTY COUNTY CLERK) NAME MAURY CRUZ DATE OF 1935 AGE 83 PHONE SSN# [id number] GENDER male EVALUATING PHYSICIAN Dr. Alexy Butler M.D. 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) - Non-Tiered Mixed hyperlipidemia (E78.2) Anemia Hypomagnesemia COPD GERD Biliary Stricture BPH Depression Insomnia Gout CAD Hypertension - N/A Cirrhois of Liver POST-ADMISSION FUNCTIONAL/MEDICAL STATUS: - Bladder Same accident frequency: Ind - No accidents in the past 7 days - Bowel Same accident frequency: Ind - No accidents in the past 7 days - Walking Same score based on distance walked: 0(N/A) Same score based on distance walked: 2(5149ft) - Wheelchair Same score based on distance traveled: 0(N/A) Same score based on distance traveled: 2(5149ft) STATUS CHANGE EVALUATION: No change in Functional or Medical Status is identified compared with Pre-Admission screening. PATIENT NEEDS CLOSE MEDICAL SUPERVISION BY A REHABILITATION PHYSICIAN FOR: Coordination of Treatment Team Diabetes Management Medical and Co-Morbidity Management Sleep Problems PATIENT REQUIRES 24X7 REHAB NURSING FOR MEDICAL AND FUNCTIONAL MGT. OF THE FOLLOWING DEFICITS: Disease Management Medication Management Patient/Family Education Providing Safe Environment PATIENT REQUIRES INTENSIVE, COORDINATED INTERDISCIPLINARY APPROACH TO REHAB: Arranging Home Equipment/Services Discharge Planning Family Intervention/Training Welding Machine Feeder/Case Management LIST OF IDENTIFIED AND POTENTIAL PROBLEMS: Alteration in Sleep Alteration in leisure activities Bladder, Incontinence Blood Pressure, Hypertension/hypotension Issues Bowel, Incontinence Depression, Actual or Potential Diabetes, Hyperglycemia/hypoglycemia Issues Infection, Actual or Potential Mobility Impaired Pain, Alteration in Comfort Self Care Deficit Skin Integrity, Actual or Potential Urinary Tract Infection (UTI), Actual or Potential RISK FOR COMPLICATIONS - COPD Acute Resp failure. Pneumonia. Resp. Arrest. - GERD Alteration in sleep. Aspiration. Dehydration. Malnutrition. Pain. - Depression Serotonin side effects. - CAD CHF. Cardiac Arrest. TN. Pain. - Hypertension CVA. Hypotension. TN. TIA. INTERVENTIONS - COPD 02 sats. Medications. Nebulizers. Oxygen. Resp. therapy. X-rays. - GERD Altered diet. Elevation of head of bed. Medications. Nausea/vomiting. Nighttime food/fluid restrictio ns. Nutrition. - Depression Medications. Psycho/social. Safety. - CAD 02 sats. Activity management. Medications. VS. - Hypertension PATIENT COULD BE AT RISK FOR COMPLICATIONS FROM ADVERSE MEDICAL CONDITIONS DUE TO HIS/HER COMORBIDITI ES AND THE RIGORS OF THE INTENSIVE REHABILLITATION PROGRAM. METHODS OR INTERVENTIONS TO AVOID COMPLIC ATIONS INCLUDE: - Infection Clinical staff to assess and manage the signs and symptoms of infection including fever, redness, war mth, etc. - Urinary Tract Infection - Falls Patient will be evaluated for Fall Precautions and will be placed on Fall Precautions as indicated pe r protocol. - Skin Breakdown Nursing will assess skin daily using assessment tool and will place on Skin Breakdown Precautions as indicated per protocol. - Pain Clinical staff may employ non-medication methods such as massage, distraction, decrease stimulus, etc . as needed. Clinical staff will assess patient's pain level every shift per protocol to assess and e nsure pain management effectiveness. Medications will be given and the pain level re-assessed. PRELIMINARY PLAN OF CARE: - Physical Therapy Patient needs Physical Therapy for a daily minimum of 1.5 hours at least 5 out of 7 days, to improve: Mobility, Strengthening, Transfers, Stretching, ROM, Endurance, Ability to manage stairs, Gait, and Balance. - Speech Therapy Patient needs Speech Therapy for a daily minimum of 0.5 hours at least 5 out of 7 days, to improve: S wallowing, Cognition, Language Skills, and Compensatory Strategies. - Rehabilitation Nursing Patient requires 24x7 Rehabilitation Nursing for: Pain Issues, Identifying and preventing risk factor s, Monitoring and reporting current medical conditions, Assisting with ambulation and transfer, Pop ting with all ADL-s, Teaching patients about disease process and medications, Family teaching, Provid ing safe environment, Bowel and Bladder Issues, Skin Integrity, and Medication Management. Patient needs Welding Machine Feeder and/or Case Management for: Discharge Planning, Arranging Home Equipmen t or Services, and Family Interventions. - Dietary and Nutrition Services Patient needs Dietary and Nutrition Services for: Adequate Nutrition, Nutritional Supplements, and Nu tritional Education. - Occupational Therapy Patient needs Occupational Therapy for a daily minimum of 1.5 hours at least 5 out of 7 days, to impr ove Activities of Daily Living, including: Eating, Grooming, Bathing, Dressing, Toileting, Toilet Tra nsfers, Community Reintegration, Higher functional activities, Adaptive Equipment, Splinting, Househo ld Tasks, and Other activities as determined. QI SCORES: - Self-Care A. Eating 05-Setup or clean-up assistance B. Oral hygiene 05-Setup or clean-up assistance C. Toileting hygiene 05-Setup or clean-up assistance E. Shower/bathe self 05-Setup or clean-up assistance F. Upper body dressing 04-Supervision or touching assistance G. Lower body dressing 04-Supervision or touching assistance H. Putting on/taking off footwear 03-Partial/moderate assistance - Mobility A. Roll left and right 04-Supervision or touching assistance B. Sit to lying 03-Partial/moderate assistance C. Lying to sitting on side of bed 03-Partial/moderate assistance D. Sit to stand 03-Partial/moderate assistance E. Chair/hyu-qr-vpncr transfer 03-Partial/moderate assistance F. Toilet transfer 03-Partial/moderate assistance G. Car transfer 88-Not attempted due to medical condition or safety concerns I. Walk 10 feet 04-Supervision or touching assistance J. Walk 50 feet with two turns 04-Supervision or touching assistance K. Walk 150 feet 88-Not attempted due to medical condition or safety concerns L. Walking 10 feet on uneven surfaces 88-Not attempted due to medical condition or safety concerns M. 1 step (curb) 88-Not attempted due to medical condition or safety concerns N. 4 steps 88-Not attempted due to medical condition or safety concerns O. 12 steps 88-Not attempted due to medical condition or safety concerns P. Picking up object 88-Not attempted due to medical condition or safety concerns R. Wheel 50 feet with two turns 02-Substantial/maximal assistance S. Wheel 150 feet 02-Substantial/maximal assistance - Bladder and Bowel Bladder continence 0-Always continent Bowel continence 0-Always continent - Endurance Fair - Balance Fair - Safety Awareness Fair POTENTIAL FUNCTIONAL GOALS FOR PATIENT TO ACHIEVE BY DISCHARGE: - Safety Precaution Patient will remain free from falls or injury at time of discharge. - Bed Mobility Patient will perform bed mobility at 4-Ernst level of assistance. - Transfers Patient will complete transfers from bed to chair at 4-Ernst level of assistance. - Mobility Patient will ambulate 150 ft with 4-Ernst level of assistance with RW. PATIENT REHAB POTENTIAL Yanet CRUZ is able and expected to receive 3 hours of individualized therapy daily on at least 5 of ever y 7 days Yanet CRUZ's prognosis for significant practical improvement within a reasonable period of time appears Good Expected level of measurable improvement will be of a practical value to Yanet CRUZ's functional capacit y or adaptations to impairments Has a viable Discharge Plan Medically appropriate; condition is sufficiently stable to participate in intensive rehab program DISCHARGE PLAN: - Estimated Length of Stay (days) 13. - Consensus on plan Discharge plan has been discussed with primary caregiver. Patient/Family is in agreement with the venus n. Primary caregiver is in agreement with the plan. - Patient/Family Goals Return home with assistance. - Planned Living Setting Upon Discharge Home, to live with Family/Relatives. Transitional Living. CONCLUSION ON REHABILITATION NECESSITY: I have evaluated patient's pre-admission functional status and, comparing it to the patient's post-ad mission functional status now, I conclude that the pre-admission assessment was accurate. Patient's c ondition on admission supports the medical necessity of admission to IR[facility]. It is safe to proceed with patient's therapy program. SIGNATURE PANEL: (DEPUTY COUNTY CLERK)
[2019-01-14] MEDS: PROMOD 30 ML DOSE PO SCH (19:19)
--- NOTE | 2019-01-15 01:02 | PN ---
Date of Progress Note: 01/14/2019 Subjective: Patient was seen this morning. He was on rehab floor, lying in bed, not in distress. Objective: Vital Signs: Reviewed. HEENT: Unremarkable. Lungs: Clear to auscultation. Heart: Sounds normal. Abdomen: Soft. Bowel sounds normal. No guarding, rigidity, tenderness. Abdomen is slightly disten ded because of ascites; and upon percussion, ascites present unchanged from yesterday. Extremities: Leg edema has resolved. Laboratory Data: White count 7.7, hemoglobin 11.6, platelets 284. Sodium 137, potassium 3.9, chlori de 104, bicarb 27, BUN 27, creatinine 0.96, glucose 82. Ammonia level not available from today. We will order it for tomorrow. Impression: 1.Hepatic encephalopathy. 2.Debility. 3.Generalized weakness. 4.Cirrhosis of liver with ascites. 5.Coronary artery disease. 6.Hypertension. Plan: We will go ahead and continue current medical management. Patient lost his IV access this mor alison. We will change IV Protonix and IV Diflucan to oral dose starting today. Continue lactulose pe r order. Continue Xifaxan per order. I will see him tomorrow for followup. KAITLYNN/MODL Voice ID: [id number] Report ID: [id number]
[2019-01-15] MEDS: PANTOPRAZOLE 40MG TABLET PO SCH (06:53)
[2019-01-15] MEDS: INSULIN -REGULAR HUMAN 50 UNIT/0.5 ML ML SQ SCH ×4 (07:30→20:47)
[2019-01-15] MEDS: FINASTERIDE 5 MG TAB PO SCH (08:00)
[2019-01-15] MEDS: Rifaximin 550 MG Tab PO SCH ×2 (08:00→20:45)
[2019-01-15] MEDS: CYANOCOBALAMIN 1,000 MCG TAB PO SCH (08:00)
[2019-01-15] MEDS: PROMOD 30 ML DOSE PO SCH ×2 (08:00→20:45)
[2019-01-15] MEDS: ASPIRIN EC 81 MG TAB PO SCH (08:00)
[2019-01-15] MEDS: allopurinoL 300 MG TAB PO SCH (08:00)
[2019-01-15] MEDS: FLUCONAZOLE 100 MG TAB PO SCH (08:00)
[2019-01-15] MEDS: SPIRONOLACTONE 25 MG TABLET PO SCH (08:00)
[2019-01-15] MEDS: MAGNESIUM OXIDE 400 MG TAB PO SCH (08:00)
[2019-01-15] MEDS: GLUCERNA SHAKE 237 ML CAN PO SCH ×2 (08:00→20:45)
[2019-01-15] MEDS: LACTULOSE 20 GM/30 ML UCUP PO SCH ×4 (09:00→20:45)
[2019-01-15] MEDS: ENSURE PUDDING 4 OZ CUP PO SCH ×2 (09:00→14:40)
[2019-01-15] MEDS: INSULIN GLARGINE 100 UNITS/ML SQ SCH (09:45)
--- NOTE | 2019-01-15 09:59 | P.RH.PN ---
Estimated Length of Stay: 13 Expected Discharge Date: 01/25/19 Discharge Disposition Plan: Home Family Support: Yes Half-Way Goal: Mobility, Transfers, Self Care Vital Signs: Last Vital Signs Temp 97.4 F 01/15/19 07:05 Pulse 76 01/15/19 07:05 Resp 16 01/15/19 07:05 BP 106/54 L 01/15/19 07:05 Pulse Ox 96 01/15/19 07:05 Laboratory: Laboratory Last Values WBC 7.7 K/uL (4.3-10.9) 01/14/19 06:03 RBC 3.98 M/uL (4.33-5.43) L 01/14/19 06:03 Hgb 11.6 g/dL (13.6-17.9) L 01/14/19 06:03 Hct 34.5 % (39.6-49.0) L 01/14/19 06:03 MCV 86.6 fL (80-100) 01/14/19 06:03 MCH 29.2 pg (27.0-35.0) 01/14/19 06:03 MCHC 33.7 g/dL (32.0-36.0) 01/14/19 06:03 RDW 19.9 % (12.1-15.2) H 01/14/19 06:03 Plt Count 284 K/uL (152-406) 01/14/19 06:03 MPV 9.1 fL (7.6-11.3) 01/14/19 06:03 Neutrophils % 61.7 % (41.7-73.7) 01/14/19 06:03 Lymphocytes % 25.4 % (15.3-44.8) 01/14/19 06:03 Monocytes % 9.8 % (3.3-12.3) 01/14/19 06:03 Eosinophils % 2.6 % (0-4.4) 01/14/19 06:03 Basophils % 0.5 % (0-1.3) 01/14/19 06:03 Absolute Neutrophils 4.8 K/uL (1.8-8.0) 01/14/19 06:03 Absolute Lymphocytes 2.0 K/uL (0.7-4.9) 01/14/19 06:03 Absolute Monocytes 0.8 K/uL (0.1-1.3) 01/14/19 06:03 Absolute Eosinophils 0.2 K/uL (0-0.5) 01/14/19 06:03 Absolute Basophils 0.0 K/uL (0-0.5) 01/14/19 06:03 Sodium 137 mmol/L (136-145) 01/14/19 06:03 Potassium 3.9 mmol/L (3.5-5.1) 01/14/19 06:03 Chloride 104 mmol/L (98-107) 01/14/19 06:03 Carbon Dioxide 27 mmol/L (21-32) 01/14/19 06:03 BUN 27 mg/dL (7-18) H 01/14/19 06:03 Creatinine 0.96 mg/dL (0.55-1.3) 01/14/19 06:03 Estimated GFR 75 mL/min (=/>90) L 01/14/19 06:03 Glucose 82 mg/dL (74-106) 01/14/19 06:03 POC Glucose 162 mg/dl (65-120) H 01/15/19 06:56 Calcium 9.3 mg/dL (8.5-10.1) 01/14/19 06:03 Magnesium 1.8 mg/dL (1.8-2.4) 01/14/19 06:03 Ammonia 39 umol/L (19-54) D 01/15/19 06:01 Albumin 2.2 g/dL (3.4-5.0) L 01/14/19 06:03 Prealbumin 9.8 mg/dL (20-40) L 01/14/19 06:03 Weight: 175 lb Wound Present: No Closed Surgical Incision Present: No Negative Pressure Wound Therapy Present: No Physician Update: Labs reviewed and are stable. He is making fair overall progress with physical, occupational and speech therapy. He has oral thrush and he is taking Diflucan. Medical Issues: Patient is incontinent less than daily and always continent with bowel Functional Improvement: pt presents with moderate genrealized weakness. pt exhibits poor balance and stability during ambulation and functional transfers. pt demonstrates significant lethargy and fatigue. pt experiences poor tolerance to functional activity due to fatigue and weakness. Skilled PT services are necessary to address the above mentioned impairments and functional limitations. Summary: Patient's care plan and director long term care goals have been reviewed and revised as necessary. Please see the Rehabilitation Signature page for all necessary signatures.
[2019-01-15] MEDS: FUROSEMIDE 20 MG TABLET PO SCH (10:02)
--- NOTE | 2019-01-15 15:35 | FAST ---
ENCOUNTER DATE AND TIME: 01/15/2019 08:00 (UNDERCOLLAR MAKER) NAME MAURY CRUZ DATE OF : 1935 DATE OF ADMISSION: 01/13/2019 17:07 (UNDERCOLLAR MAKER) PHONE: AGE: 83 N# [id number] GENDER: Male ENCOUNTER PHYSICIAN: Dr. Alexy Butler M.D. ADMISSION DIAGNOSIS: - Debility 16 - Debility (16) Liver Cirrhosis. EATING: Not assessed/no information CODE: - ORAL HYGIENE: ORAL HYGIENE - STEP 1: Does the patient complete the activity by him/herself with no assistance (physical, verbal/nonverbal cueing, setup/clean-up)? Yes. 1. [id number] ADMISSION PERFORMANCE: Independent CODE: 06 TOILETING HYGIENE: Not assessed/no information CODE: - BATHING: SHOWER/BATHE SELF - STEP 1: Does the patient complete the activity by him/herself with no assistance (physical, verbal/nonverbal cueing, setup/clean-up)? No. SHOWER/BATHE SELF - STEP 2: Does the patient need only setup/clean-up assistance from one helper? No. SHOWER/BATHE SELF - STEP 3: Does the patient need only verbal/nonverbal cueing or touching/steadying/contact guard assistance fro m one helper? Yes. 1. [id number] ADMISSION PERFORMANCE: Supervision or touching assistance CODE: 04 DRESSING - UPPER BODY: DRESSING - UPPER BODY - STEP 1: Does the patient complete the activity by him/herself with no assistance (physical, verbal/nonverbal cueing, setup/clean-up)? No. DRESSING - UPPER BODY - STEP 2: Does the patient need only setup/clean-up assistance from one helper? No. DRESSING - UPPER BODY - STEP 3: Does the patient need only verbal/nonverbal cueing or touching/steadying/contact guard assistance fro m one helper? Yes. 1. [id number] ADMISSION PERFORMANCE: Supervision or touching assistance CODE: 04 DRESSING - LOWER BODY: DRESSING - LOWER BODY - STEP 1: Does the patient complete the activity by him/herself with no assistance (physical, verbal/nonverbal cueing, setup/clean-up)? No. DRESSING - LOWER BODY - STEP 2: Does the patient need only setup/clean-up assistance from one helper? No. DRESSING - LOWER BODY - STEP 3: Does the patient need only verbal/nonverbal cueing or touching/steadying/contact guard assistance fro m one helper? No. DRESSING - LOWER BODY - STEP 4: Does the patient need physical assistance - for example lifting or trunk support from one helper - wi th the helper providing less than half of the effort? Yes. 1. [id number] ADMISSION PERFORMANCE: Partial/moderate assistance CODE: 03 PUTTING ON/TAKING OFF FOOTWEAR: FOOTWEAR - STEP 1: Does the patient complete the activity by him/herself with no assistance (physical, verbal/nonverbal cueing, setup/clean-up)? No. FOOTWEAR - STEP 2: Does the patient need only setup/clean-up assistance from one helper? No. FOOTWEAR - STEP 3: Does the patient need only verbal/nonverbal cueing or touching/steadying/contact guard assistance fro m one helper? No. FOOTWEAR - STEP 4: Does the patient need physical assistance - for example lifting or trunk support from one helper - wi th the helper providing less than half of the effort? No. FOOTWEAR - STEP 5: Does the patient need physical assistance - for example lifting or trunk support from one helper - wi th the helper providing more than half of the effort? No. FOOTWEAR - STEP 6: Does the helper provide all of the effort? OR Is the assistance of two or more helpers required to co mplete the activity? Yes. 1. [id number] ADMISSION PERFORMANCE: Dependent CODE: 01 DOES THE PATIENT USE A WHEELCHAIR/SCOOTER? CODE: EXPR INDICATE THE TYPE OF WHEELCHAIR/SCOOTER USED: CODE: EXPR INDICATE THE TYPE OF WHEELCHAIR/SCOOTER USED: CODE: EXPR BLADDER AND BOWEL: CODE: EXPR CODE: EXPR SIGNATURE PANEL: The following modified sections: 1. [id number] Admission Performance, 1. UV2044i Admission Performance, 1. [id number] Admission Performance, 1. VL5311d Admission Performance, 1. US4883l Admission Performance were [electronically] signed by Nellie Rosario OT on SunJan 15 2019 15:34:31 GMT-0600 ([place])
--- NOTE | 2019-01-15 16:11 | FAST ---
SHIFT START DATE/TIME: 01/15/2019 07:00 (PILLOWCASE FOLDER) SHIFT END DATE/TIME: 01/15/2019 19:00 (PILLOWCASE FOLDER) NAME MAURY CRUZ DATE OF : 1935 DATE OF ADMISSION: 01/13/2019 17:07 (PILLOWCASE FOLDER) PHONE: AGE: 83 SSN# [id number] GENDER: Male ENCOUNTER PHYSICIAN: Dr. Alexy Butler M.D. ADMISSION DIAGNOSIS: - Debility 16 - Debility (16) Liver Cirrhosis. EATING: EATING - STEP 1: Does the patient complete the activity by him/herself with no assistance (physical, verbal/nonverbal cueing, setup/clean-up)? No. EATING - STEP 2: Does the patient need only setup/clean-up assistance from one helper? No. EATING - STEP 3: Does the patient need only verbal/nonverbal cueing or touching/steadying/contact guard assistance fro m one helper? No. EATING - STEP 4: Does the patient need physical assistance - for example lifting or trunk support from one helper - wi th the helper providing less than half of the effort? Yes. 1. [id number] ADMISSION PERFORMANCE: Partial/moderate assistance CODE: 03 ORAL HYGIENE: ORAL HYGIENE - STEP 1: Does the patient complete the activity by him/herself with no assistance (physical, verbal/nonverbal cueing, setup/clean-up)? No. ORAL HYGIENE - STEP 2: Does the patient need only setup/clean-up assistance from one helper? Yes. 1. [id number] ADMISSION PERFORMANCE: Setup or clean-up assistance CODE: 05 TOILETING HYGIENE: TOILETING HYGIENE - STEP 1: Does the patient complete the activity by him/herself with no assistance (physical, verbal/nonverbal cueing, setup/clean-up)? No. TOILETING HYGIENE - STEP 2: Does the patient need only setup/clean-up assistance from one helper? No. TOILETING HYGIENE - STEP 3: Does the patient need only verbal/nonverbal cueing or touching/steadying/contact guard assistance fro m one helper? Yes. 1. [id number] ADMISSION PERFORMANCE: Supervision or touching assistance CODE: 04 BATHING: Not assessed/no information CODE: - DRESSING - UPPER BODY: DRESSING - UPPER BODY - STEP 1: Does the patient complete the activity by him/herself with no assistance (physical, verbal/nonverbal cueing, setup/clean-up)? No. DRESSING - UPPER BODY - STEP 2: Does the patient need only setup/clean-up assistance from one helper? No. DRESSING - UPPER BODY - STEP 3: Does the patient need only verbal/nonverbal cueing or touching/steadying/contact guard assistance fro m one helper? Yes. 1. [id number] ADMISSION PERFORMANCE: Supervision or touching assistance CODE: 04 DRESSING - LOWER BODY: DRESSING - LOWER BODY - STEP 1: Does the patient complete the activity by him/herself with no assistance (physical, verbal/nonverbal cueing, setup/clean-up)? No. DRESSING - LOWER BODY - STEP 2: Does the patient need only setup/clean-up assistance from one helper? No. DRESSING - LOWER BODY - STEP 3: Does the patient need only verbal/nonverbal cueing or touching/steadying/contact guard assistance fro m one helper? Yes. 1. [id number] ADMISSION PERFORMANCE: Supervision or touching assistance CODE: 04 PUTTING ON/TAKING OFF FOOTWEAR: FOOTWEAR - STEP 1: Does the patient complete the activity by him/herself with no assistance (physical, verbal/nonverbal cueing, setup/clean-up)? No. FOOTWEAR - STEP 2: Does the patient need only setup/clean-up assistance from one helper? No. FOOTWEAR - STEP 3: Does the patient need only verbal/nonverbal cueing or touching/steadying/contact guard assistance fro m one helper? Yes. 1. [id number] ADMISSION PERFORMANCE: Supervision or touching assistance CODE: 04 ROLL LEFT AND RIGHT: ROLL LEFT AND RIGHT - STEP 1: Does the patient complete the activity by him/herself with no assistance (physical, verbal/nonverbal cueing, setup/clean-up)? No. ROLL LEFT AND RIGHT - STEP 2: Does the patient need only setup/clean-up assistance from one helper? No. ROLL LEFT AND RIGHT - STEP 3: Does the patient need only verbal/nonverbal cueing or touching/steadying/contact guard assistance fro m one helper? Yes. 1. [id number] ADMISSION PERFORMANCE: Supervision or touching assistance CODE: 04 SIT TO LYING: SIT TO LYING - STEP 1: Does the patient complete the activity by him/herself with no assistance (physical, verbal/nonverbal cueing, setup/clean-up)? No. SIT TO LYING - STEP 2: Does the patient need only setup/clean-up assistance from one helper? No. SIT TO LYING - STEP 3: Does the patient need only verbal/nonverbal cueing or touching/steadying/contact guard assistance fro m one helper? Yes. 1. [id number] ADMISSION PERFORMANCE: Supervision or touching assistance CODE: 04 LYING TO SITTING: LYING TO SITTING ON SIDE OF BED - STEP 1: Does the patient complete the activity by him/herself with no assistance (physical, verbal/nonverbal cueing, setup/clean-up)? No. LYING TO SITTING ON SIDE OF BED - STEP 2: Does the patient need only setup/clean-up assistance from one helper? No. LYING TO SITTING ON SIDE OF BED - STEP 3: Does the patient need only verbal/nonverbal cueing or touching/steadying/contact guard assistance fro m one helper? Yes. 1. [id number] ADMISSION PERFORMANCE: Supervision or touching assistance CODE: 04 SIT TO STAND: SIT TO STAND - STEP 1: Does the patient complete the activity by him/herself with no assistance (physical, verbal/nonverbal cueing, setup/clean-up)? No. SIT TO STAND - STEP 2: Does the patient need only setup/clean-up assistance from one helper? No. SIT TO STAND - STEP 3: Does the patient need only verbal/nonverbal cueing or touching/steadying/contact guard assistance fro m one helper? Yes. 1. [id number] ADMISSION PERFORMANCE: Supervision or touching assistance CODE: 04 TRANSFERS: BED, CHAIR: CHAIR/[id number] TRANSFER - STEP 1: Does the patient complete the activity by him/herself with no assistance (physical, verbal/nonverbal cueing, setup/clean-up)? No. CHAIR/[id number] TRANSFER - STEP 2: Does the patient need only setup/clean-up assistance from one helper? No. CHAIR/[id number]-ZOZLE TRANSFER - STEP 3: Does the patient need only verbal/nonverbal cueing or touching/steadying/contact guard assistance fro m one helper? Yes. 1. [id number] ADMISSION PERFORMANCE: Supervision or touching assistance CODE: 04 TRANSFER TOILET: TOILET TRANSFER - STEP 1: Does the patient complete the activity by him/herself with no assistance (physical, verbal/nonverbal cueing, setup/clean-up)? No. TOILET TRANSFER - STEP 2: Does the patient need only setup/clean-up assistance from one helper? No. TOILET TRANSFER - STEP 3: Does the patient need only verbal/nonverbal cueing or touching/steadying/contact guard assistance fro m one helper? Yes. 1. [id number] ADMISSION PERFORMANCE: Supervision or touching assistance CODE: 04 TRANSFERS: CAR: Not assessed/no information CODE: - WALK 10 FEET: Not assessed/no information CODE: - 1 STEP (CURB): Not assessed/no information CODE: - PICKING UP OBJECT: Not assessed/no information CODE: - DOES THE PATIENT USE A WHEELCHAIR/SCOOTER? CODE: EXPR WHEEL 50 FEET WITH TWO TURNS: Not assessed/no information CODE: - INDICATE THE TYPE OF WHEELCHAIR/SCOOTER USED: RR1. INDICATE THE TYPE OF WHEELCHAIR/SCOOTER USED.: Manual CODE: 1 WHEEL 150 FEET: Not assessed/no information CODE: - INDICATE THE TYPE OF WHEELCHAIR/SCOOTER USED: SS1. INDICATE THE TYPE OF WHEELCHAIR/SCOOTER USED.: Manual CODE: 1 BLADDER AND BOWEL: H350. BLADDER CONTINENCE (3-DAY ASSESSMENT PERIOD): Incontinent less than daily (e.g., once or twice during the 3-day assessment period) CODE: 2 H400. BOWEL CONTINENCE (3-DAY ASSESSMENT PERIOD): Occasionally incontinent (one episode of bowel incontinence) CODE: 1 SIGNATURE PANEL: The following modified sections: 1. [id number] Admission Performance, 1. [id number] Admission Performance, 1. OV0078k Admission Performance, 1. WK3274t Admission Performance, 1. EW6671d Admission Performance, 1. UR0184F Admission Performance, 1. [id number] Admission Performance, 1. IR7448N Admission Performance , 1. [id number] Admission Performance, 1. FR2782O Admission Performance, 1. [id number] Admission Performanc e, 1. SH0772O Admission Performance, RR1. Indicate the type of wheelchair/scooter used., Code, SS1. I ndicate the type of wheelchair/scooter used., H350. Bladder Continence (3-day assessment period), H40 0. Bowel Continence (3-day assessment period), 1. [id number] Admission Performance were [electronically] signed by Dara Fritz C.N.A. on SunJan 15 2019 16:10:00 GMT-0600 (Central Standard Time)
[2019-01-16] MEDS: LACTULOSE 20 GM/30 ML UCUP PO SCH ×6 (01:00→20:22)
[2019-01-16] MEDS: PANTOPRAZOLE 40MG TABLET PO SCH (06:35)
[2019-01-16] MEDS: INSULIN -REGULAR HUMAN 50 UNIT/0.5 ML ML SQ SCH ×4 (07:30→20:22)
[2019-01-16] MEDS: GLUCERNA SHAKE 237 ML CAN PO SCH ×2 (08:00→20:22)
[2019-01-16] MEDS: FUROSEMIDE 20 MG TABLET PO SCH (08:00)
[2019-01-16] MEDS: SPIRONOLACTONE 25 MG TABLET PO SCH (08:00)
[2019-01-16] MEDS: MAGNESIUM OXIDE 400 MG TAB PO SCH (08:00)
[2019-01-16] MEDS: Rifaximin 550 MG Tab PO SCH ×2 (08:00→20:22)
[2019-01-16] MEDS: CYANOCOBALAMIN 1,000 MCG TAB PO SCH (08:00)
[2019-01-16] MEDS: INSULIN GLARGINE 100 UNITS/ML SQ SCH (08:00)
[2019-01-16] MEDS: ASPIRIN EC 81 MG TAB PO SCH (08:00)
[2019-01-16] MEDS: FINASTERIDE 5 MG TAB PO SCH (08:00)
[2019-01-16] MEDS: FLUCONAZOLE 100 MG TAB PO SCH (08:00)
[2019-01-16] MEDS: allopurinoL 300 MG TAB PO SCH (08:00)
[2019-01-16] MEDS: PROMOD 30 ML DOSE PO SCH ×2 (08:00→20:22)
[2019-01-16] MEDS: ENSURE PUDDING 4 OZ CUP PO SCH ×2 (09:00→14:10)
--- NOTE | 2019-01-16 10:44 | FAST ---
SHIFT START DATE/TIME: 01/16/2019 07:00 (AUTOMATIC MAINTAINER) SHIFT END DATE/TIME: 01/16/2019 19:00 (AUTOMATIC MAINTAINER) NAME MAURY CRUZ DATE OF : 1935 DATE OF ADMISSION: 01/13/2019 17:07 (AUTOMATIC MAINTAINER) PHONE: AGE: 83 SSN# [id number] GENDER: Male ENCOUNTER PHYSICIAN: Dr. Alexy Butler M.D. ADMISSION DIAGNOSIS: - Debility 16 - Debility (16) Liver Cirrhosis. EATING: EATING - STEP 1: Does the patient complete the activity by him/herself with no assistance (physical, verbal/nonverbal cueing, setup/clean-up)? No. EATING - STEP 2: Does the patient need only setup/clean-up assistance from one helper? No. EATING - STEP 3: Does the patient need only verbal/nonverbal cueing or touching/steadying/contact guard assistance fro m one helper? No. EATING - STEP 4: Does the patient need physical assistance - for example lifting or trunk support from one helper - wi th the helper providing less than half of the effort? Yes. 1. [id number] ADMISSION PERFORMANCE: Partial/moderate assistance CODE: 03 ORAL HYGIENE: ORAL HYGIENE - STEP 1: Does the patient complete the activity by him/herself with no assistance (physical, verbal/nonverbal cueing, setup/clean-up)? No. ORAL HYGIENE - STEP 2: Does the patient need only setup/clean-up assistance from one helper? Yes. 1. [id number] ADMISSION PERFORMANCE: Setup or clean-up assistance CODE: 05 TOILETING HYGIENE: TOILETING HYGIENE - STEP 1: Does the patient complete the activity by him/herself with no assistance (physical, verbal/nonverbal cueing, setup/clean-up)? No. TOILETING HYGIENE - STEP 2: Does the patient need only setup/clean-up assistance from one helper? Yes. 1. [id number] ADMISSION PERFORMANCE: Setup or clean-up assistance CODE: 05 BATHING: Not assessed/no information CODE: - DRESSING - UPPER BODY: DRESSING - UPPER BODY - STEP 1: Does the patient complete the activity by him/herself with no assistance (physical, verbal/nonverbal cueing, setup/clean-up)? No. DRESSING - UPPER BODY - STEP 2: Does the patient need only setup/clean-up assistance from one helper? No. DRESSING - UPPER BODY - STEP 3: Does the patient need only verbal/nonverbal cueing or touching/steadying/contact guard assistance fro m one helper? Yes. 1. [id number] ADMISSION PERFORMANCE: Supervision or touching assistance CODE: 04 DRESSING - LOWER BODY: DRESSING - LOWER BODY - STEP 1: Does the patient complete the activity by him/herself with no assistance (physical, verbal/nonverbal cueing, setup/clean-up)? No. DRESSING - LOWER BODY - STEP 2: Does the patient need only setup/clean-up assistance from one helper? No. DRESSING - LOWER BODY - STEP 3: Does the patient need only verbal/nonverbal cueing or touching/steadying/contact guard assistance fro m one helper? Yes. 1. [id number] ADMISSION PERFORMANCE: Supervision or touching assistance CODE: 04 PUTTING ON/TAKING OFF FOOTWEAR: FOOTWEAR - STEP 1: Does the patient complete the activity by him/herself with no assistance (physical, verbal/nonverbal cueing, setup/clean-up)? No. FOOTWEAR - STEP 2: Does the patient need only setup/clean-up assistance from one helper? No. FOOTWEAR - STEP 3: Does the patient need only verbal/nonverbal cueing or touching/steadying/contact guard assistance fro m one helper? Yes. 1. [id number] ADMISSION PERFORMANCE: Supervision or touching assistance CODE: 04 ROLL LEFT AND RIGHT: ROLL LEFT AND RIGHT - STEP 1: Does the patient complete the activity by him/herself with no assistance (physical, verbal/nonverbal cueing, setup/clean-up)? No. ROLL LEFT AND RIGHT - STEP 2: Does the patient need only setup/clean-up assistance from one helper? No. ROLL LEFT AND RIGHT - STEP 3: Does the patient need only verbal/nonverbal cueing or touching/steadying/contact guard assistance fro m one helper? Yes. 1. [id number] ADMISSION PERFORMANCE: Supervision or touching assistance CODE: 04 SIT TO LYING: SIT TO LYING - STEP 1: Does the patient complete the activity by him/herself with no assistance (physical, verbal/nonverbal cueing, setup/clean-up)? No. SIT TO LYING - STEP 2: Does the patient need only setup/clean-up assistance from one helper? No. SIT TO LYING - STEP 3: Does the patient need only verbal/nonverbal cueing or touching/steadying/contact guard assistance fro m one helper? Yes. 1. [id number] ADMISSION PERFORMANCE: Supervision or touching assistance CODE: 04 LYING TO SITTING: LYING TO SITTING ON SIDE OF BED - STEP 1: Does the patient complete the activity by him/herself with no assistance (physical, verbal/nonverbal cueing, setup/clean-up)? No. LYING TO SITTING ON SIDE OF BED - STEP 2: Does the patient need only setup/clean-up assistance from one helper? No. LYING TO SITTING ON SIDE OF BED - STEP 3: Does the patient need only verbal/nonverbal cueing or touching/steadying/contact guard assistance fro m one helper? Yes. 1. [id number] ADMISSION PERFORMANCE: Supervision or touching assistance CODE: 04 SIT TO STAND: SIT TO STAND - STEP 1: Does the patient complete the activity by him/herself with no assistance (physical, verbal/nonverbal cueing, setup/clean-up)? No. SIT TO STAND - STEP 2: Does the patient need only setup/clean-up assistance from one helper? No. SIT TO STAND - STEP 3: Does the patient need only verbal/nonverbal cueing or touching/steadying/contact guard assistance fro m one helper? Yes. 1. [id number] ADMISSION PERFORMANCE: Supervision or touching assistance CODE: 04 TRANSFERS: BED, CHAIR: CHAIR/[id number] TRANSFER - STEP 1: Does the patient complete the activity by him/herself with no assistance (physical, verbal/nonverbal cueing, setup/clean-up)? No. CHAIR/[id number] TRANSFER - STEP 2: Does the patient need only setup/clean-up assistance from one helper? No. CHAIR/[id number]-[id number] TRANSFER - STEP 3: Does the patient need only verbal/nonverbal cueing or touching/steadying/contact guard assistance fro m one helper? Yes. 1. [id number] ADMISSION PERFORMANCE: Supervision or touching assistance CODE: 04 TRANSFER TOILET: TOILET TRANSFER - STEP 1: Does the patient complete the activity by him/herself with no assistance (physical, verbal/nonverbal cueing, setup/clean-up)? No. TOILET TRANSFER - STEP 2: Does the patient need only setup/clean-up assistance from one helper? No. TOILET TRANSFER - STEP 3: Does the patient need only verbal/nonverbal cueing or touching/steadying/contact guard assistance fro m one helper? Yes. 1. [id number] ADMISSION PERFORMANCE: Supervision or touching assistance CODE: 04 TRANSFERS: CAR: Not assessed/no information CODE: - WALK 10 FEET: Not assessed/no information CODE: - 1 STEP (CURB): Not assessed/no information CODE: - PICKING UP OBJECT: Not assessed/no information CODE: - DOES THE PATIENT USE A WHEELCHAIR/SCOOTER? Q1. DOES THE PATIENT USE A WHEELCHAIR/SCOOTER?: Yes CODE: 1 WHEEL 50 FEET WITH TWO TURNS: Not assessed/no information CODE: - INDICATE THE TYPE OF WHEELCHAIR/SCOOTER USED: RR1. INDICATE THE TYPE OF WHEELCHAIR/SCOOTER USED.: Manual CODE: 1 WHEEL 150 FEET: Not assessed/no information CODE: - INDICATE THE TYPE OF WHEELCHAIR/SCOOTER USED: SS1. INDICATE THE TYPE OF WHEELCHAIR/SCOOTER USED.: Manual CODE: 1 BLADDER AND BOWEL: H350. BLADDER CONTINENCE (3-DAY ASSESSMENT PERIOD): Always continent (no documented incontinence) CODE: 0 H400. BOWEL CONTINENCE (3-DAY ASSESSMENT PERIOD): Frequently incontinent (2 or more episodes of bowel incontinence, but at least one continent bowel mo vement) CODE: 2 SIGNATURE PANEL: The following modified sections: 1. [id number] Admission Performance, 1. [id number] Admission Performance, 1. UC1127W Admission Performance, 1. LS3731k Admission Performance, 1. MD5753d Admission Performance, 1. FN7538x Admission Performance, 1. SR6842n Admission Performance, 1. HO5084C Admission Performance , 1. FV0967B Admission Performance, 1. PF4994A Admission Performance, 1. JH7160A Admission Performanc e, 1. US7685B Admission Performance, 1. QY0792V Admission Performance, 1. TA1570Q Admission Performan ce, Q1. Does the patient use a wheelchair/scooter?, Q1. Does the patient use a wheelchair/scooter?, R R1. Indicate the type of wheelchair/scooter used., Code, SS1. Indicate the type of wheelchair/scooter used., H400. Bowel Continence (3-day assessment period), H350. Bladder Continence (3-day assessment period) were [electronically] signed by Dara Fritz C.N.A. on SunJan 16 2019 10:43:52 GMT-0600 (Ce ntral Standard Time)
--- NOTE | 2019-01-16 13:43 | PN ---
Date of Progress Note: 01/15/2019 Subjective: Patient was seen for followup on the rehab floor. He was sitting in the wheelchair. Wi fe was with him at bedside. Denies any complaints. Overall, feels better than before. Objective: Vital Signs: Reviewed. HEENT: Unremarkable. Lungs: Clear to auscultation. Heart: Sounds normal. Abdomen: Soft. Bowel sounds normal. Presence of distention due to ascites noted, unchanged from ye sterday. Extremities: No leg edema. Laboratory Data: Ammonia level 39. Impression: 1.Hepatic encephalopathy. 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 3.Hypertension. 4.Diabetes mellitus. 5.Generalized weakness. 6.Debility. Plan: We will go ahead and continue current medication including lactulose per order. Patient did n ot have any bowel movement yesterday, so we have increased the dose of lactulose. We will continue X ifaxan and continue spironolactone, furosemide per order. I will see him tomorrow for followup. Gonzalo parada blood sugar readings reviewed. KAITLYNN/MODL Voice ID: [id number] Report ID: [id number]
--- NOTE | 2019-01-16 14:13 | PN ---
Date of Progress Note: 01/16/2019 Subjective: Patient was seen this morning for followup. He was getting ready to eat his breakfast i n his room, sitting in the wheelchair. was with him at bedside. Denies any abdominal pain, oscar sea, vomiting. He feels better than yesterday. Looks more awake, alert, smiling. Vital signs revie wed. He had several bowel movements in last 24 hours as reported by the patient's . Objective: HEENT: Unremarkable. Lungs: Clear to auscultation. Heart: Sounds normal. Abdomen: Soft. Bowel sounds normal. No guarding, rigidity, tenderness. Presence of ascites unchan ged. Extremity: No leg edema. Laboratory Data: Ammonia level 50. Fingerstick blood sugar readings reviewed. Impression: 1.Hepatic encephalopathy. 2.Cirrhosis of liver. 3.Diabetes mellitus. Plan: We will continue current lactulose, Xifaxan. Continue current insulin injection. I have advi sed patient and patient's to start learning about injection administration from nursing staff wh glenna here on the rehab floor, as I expect him to continue to use insulin upon discharge from the [facility] for diabetes control. We will continue current dose of diuretic therapy. His blood pressure is on lower side of normal range or sometimes lower than normal, so at this point we do not have any michelet m to increase the dose of diuretic medication, but that is the decision will be making on a day-to-da y basis depending on his condition. Patient may need paracentesis sometime next week and we will look into that. Physical therapy to be provided under guidance of Dr. Butler. KAITLYNN/MODL Voice ID: [id number] Report ID: [id number]
[2019-01-17] MEDS: LACTULOSE 20 GM/30 ML UCUP PO SCH ×6 (01:00→19:01)
[2019-01-17] MEDS: PANTOPRAZOLE 40MG TABLET PO SCH (06:37)
[2019-01-17] MEDS: INSULIN -REGULAR HUMAN 50 UNIT/0.5 ML ML SQ SCH ×4 (07:05→19:44)
[2019-01-17] MEDS: FINASTERIDE 5 MG TAB PO SCH (07:50)
[2019-01-17] MEDS: MAGNESIUM OXIDE 400 MG TAB PO SCH (07:50)
[2019-01-17] MEDS: allopurinoL 300 MG TAB PO SCH (07:50)
[2019-01-17] MEDS: ASPIRIN EC 81 MG TAB PO SCH (07:50)
[2019-01-17] MEDS: CYANOCOBALAMIN 1,000 MCG TAB PO SCH (07:50)
[2019-01-17] MEDS: Rifaximin 550 MG Tab PO SCH ×2 (07:51→19:02)
[2019-01-17] MEDS: SPIRONOLACTONE 25 MG TABLET PO SCH (07:51)
[2019-01-17] MEDS: FLUCONAZOLE 100 MG TAB PO SCH (07:51)
[2019-01-17] MEDS: FUROSEMIDE 20 MG TABLET PO SCH (07:51)
[2019-01-17] MEDS: INSULIN GLARGINE 100 UNITS/ML SQ SCH (07:52)
[2019-01-17] MEDS: GLUCERNA SHAKE 237 ML CAN PO SCH ×2 (07:54→19:02)
[2019-01-17] MEDS: PROMOD 30 ML DOSE PO SCH ×2 (07:55→19:02)
[2019-01-17] MEDS: ENSURE PUDDING 4 OZ CUP PO SCH ×2 (07:55→13:27)
--- NOTE | 2019-01-17 14:42 | PN ---
Date of Progress Note: 01/17/2019 Subjective: Patient was seen this morning for followup. He was doing his physical therapy this morn ing when I saw him. Overall, feels better and looks better. Denies any new complaints. Reports hav ing 3 soft to loose bowel movements in about 24 hours. Objective: Vital Signs: Reviewed. HEENT: Unremarkable. Lungs: Clear to auscultation. Heart: Sounds normal. Abdomen: Soft. Bowel sounds normal. No guarding, rigidity, tenderness. Presence of ascites unchan ged. Extremities: No leg edema. Impression: 1.Debility. 2.Generalized weakness. 3.Cirrhosis of liver with ascites. 4.Diabetes mellitus. 5.Candidal esophagitis. 6.Gastroesophageal reflux disease. Plan: We will continue current medications. Continue oral Diflucan and oral pantoprazole. Continue current diuretic therapy. I will see him tomorrow for followup. KAITLYNN/MODL Voice ID: [id number] Report ID: [id number]
[2019-01-18] MEDS: LACTULOSE 20 GM/30 ML UCUP PO SCH ×6 (01:00→18:43)
[2019-01-18] MEDS: PANTOPRAZOLE 40MG TABLET PO SCH (06:31)
[2019-01-18] MEDS: INSULIN -REGULAR HUMAN 50 UNIT/0.5 ML ML SQ SCH ×4 (07:10→18:43)
[2019-01-18] MEDS: INSULIN GLARGINE 100 UNITS/ML SQ SCH (08:40)
[2019-01-18] MEDS: Rifaximin 550 MG Tab PO SCH ×2 (08:40→18:45)
[2019-01-18] MEDS: FLUCONAZOLE 100 MG TAB PO SCH (08:41)
[2019-01-18] MEDS: MAGNESIUM OXIDE 400 MG TAB PO SCH (08:41)
[2019-01-18] MEDS: CYANOCOBALAMIN 1,000 MCG TAB PO SCH (08:41)
[2019-01-18] MEDS: ENSURE PUDDING 4 OZ CUP PO SCH ×2 (08:42→13:05)
[2019-01-18] MEDS: FINASTERIDE 5 MG TAB PO SCH (08:42)
[2019-01-18] MEDS: PROMOD 30 ML DOSE PO SCH ×2 (08:42→18:43)
[2019-01-18] MEDS: allopurinoL 300 MG TAB PO SCH (08:42)
[2019-01-18] MEDS: ASPIRIN EC 81 MG TAB PO SCH (08:42)
[2019-01-18] MEDS: GLUCERNA SHAKE 237 ML CAN PO SCH ×2 (08:42→18:43)
[2019-01-18] MEDS: SPIRONOLACTONE 25 MG TABLET PO SCH (09:24)
[2019-01-18] MEDS: FUROSEMIDE 20 MG TABLET PO SCH (09:24)
--- NOTE | 2019-01-18 15:12 | R.PN ---
ENCOUNTER DATE AND TIME: 01/18/2019 15:07 ([employer]GE [employer] HELPER) NAME MAURY CRUZ DATE OF : 1935 DATE OF ADMISSION: 01/13/2019 17:07 ([employer] HELPER) Liver CirrhosisCHIEF COMPLAINT: Debility SUBJECTIVE: Pt denied any depression. Pt denied any Shortness of Breath. He is doing much better today with ammonia down to the 20s. He is more alert and participates well w [facility] physical therapy. VITAL SIGNS Temperature: 98.1 F SBP/DBP: 109/58 Pulse: 79 Resp: 16 MEDICATION ALLERGIES: Penicillin ENVIRONMENTAL ALLERGIES: None Known - Substance Allergies None Known - Other Allergies None Known NURSING: - Shower allowing shower - Lab Results blood Sugar Check ACHS ACTIVITIES OOB only with supervision THERAPIES: - Dietary and Nutrition Adequate Nutrition. Nutritional Education. Nutritional Supplements. PHYSICAL EXAM - Gen Alert and awake Lying in bed No apparent distress Oriented to: person, time, and place - Skin No skin breakdown. No abnormalities - Eyes No abnormalities - ENMT No abnormalities - Neck No abnormalities - CVS RRR - Chest No abnormalities - Resp Clear to auscultation - Abd Distended - GI + bowel sounds Deferred - No abnormalities - Ext Mild bilateral lower extremity edema. - MSK 4+/5 weakness in both lower extremities. - Neuro 4/5 strength bilaterally upper and lower extremities. - Psych No abnormalities ASSESSMENT: Pt. is a 83 yo Right-handed white male.On 01/09/2019 he was admitted to [facility] with diagnosis Liver Cirrhosis.His impairment category is Debility 16 - Debility (16).Pre-morbid ly, Pt. was independent/mod-I in Locomotion, Safety Awareness, Balance, Social Cognition, Transfers C ontrol, Self-Care, Endurance, Sphincter Control, and Communication; and he had good Locomotion, Darlin ce, Safety Awareness, Social Cognition, Transfers Control, Sphincter Control, Self-Care, Communicatio n, and Endurance.Currently, he has deficits of Locomotion, Balance, Safety Awareness, Social Cognitio n, Transfers Control, Sphincter Control, Self-Care, and Communication.Pt. is now referred to [facility] for acute in-patient rehabilitation in order to maximize patient's function al independence in activities of daily living, strength, ROM, and mobility.- Rehab Goal Patient has realistic goal of being discharged at assistance level 6-Layo to reside at Home with Fam denise/Relatives. MDM/PLAN: - Physical Therapy Gait dysfunction - to improve, our physical therapists will perform initial evaluation of pt's statu s upon admission and devise an individualized program for Gait Training, and Wheel Chair mobility Inability to transfer - to improve, our physical therapists will perform initial evaluation of pt's status upon admission and devise an individualized program for Bed mobility Need for home safety evaluation - to improve, our physical therapists will perform initial evaluatio n of pt's status upon admission and devise an individualized program for Home Evaluation Need in caregiver upon discharge - to improve, our physical therapists will perform initial evaluati on of pt's status upon admission and devise an individualized program for Caregiver Training Edema - to improve, our physical therapists will perform initial evaluation of pt's status upon admis eliseo and devise an individualized program for Elevation Training, and Lymphedema Therapy New precaution - to improve, our physical therapists will perform initial evaluation of pt's status upon admission and devise an individualized program for Patient precaution education Poor balance - to improve, our physical therapists will perform initial evaluation of pt's status up on admission and devise an individualized program for Balance Training Weakness - to improve, our physical therapists will perform initial evaluation of pt's status upon a dmission and devise an individualized program for Aquatic Therapy, Neuromuscular Reeducation, and Str engthening Achieving independence - to improve, our physical therapists will perform initial evaluation of pt's status upon admission and devise an individualized program for Community Reintegration Activities - Occupational Therapy ADL deficits - to improve, our occupation therapists will perform initial evaluation of pt's status upon admission and devise an individualized program for Bathing, Bed mobility, Community Reintegratio n, Cooking, Dressing, Eating, Fine Motor Skills, Grooming, Homemaking, Kitchen Mobility, Laundry, Pat ient Education, Safety Awareness, Splinting - Positioning, Transfers(Toilet, Tub, Shower), and Wheel Chair Management Cognitive deficits - to improve, our occupation therapists will perform initial evaluation of pt's s tatus upon admission and devise an individualized program for Cognition - orientation Need for rn intensive care unit - to improve, our occupation therapists will perform initial evaluation of pt's status upon admission and devise an individualized program for Caregiver Training Weakness - to improve, our occupation therapists will perform initial evaluation of pt's status upon admission and devise an individualized program for Aquatic Therapy, Balance, Endurance, UE ROM, and UE strengthening - Other See attached MAR (Medication Administration Record) - N/A Medical management by Dr. Andres. Medical management by Dr. Andres. - Diet Type Continue Regular - Diet - Liquid Texture Continue Regular - Tube Feed Continue N/A - Lab Results blood Sugar Check ACHS - Diet - Solid Texture Continue Regular - Shower allowing shower FUNCTIONAL STATUS: UPDATED AT WEEKLY TEAM CONFERENCE - Bladder Same accident frequency: 7-Ind - No accidents in the past 7 days - Bowel Same accident frequency: 7-Ind - No accidents in the past 7 days - Walking Same score based on distance walked: 0(N/A) Same score based on distance walked: 2(50-149ft) - Wheelchair Same score based on distance traveled: 0(N/A) Same score based on distance traveled: 2(50-149ft) FUNCTIONAL STATUS: - Self-Care A. Eating Ind B. Grooming Layo C. Bathing Ernst D. Dressing - Upper Ernst E. Dressing - Lower modA F. Toileting sup - Sphincter Control G. Bladder control Ernst H. Bowel control Ernst - Transfers Control I. Bed/Chair/Wheelchair Ernst J. Toilet Ernst K. Tub/Shower modA - Locomotion L. Walk/Wheelchair (B) Ernst M. Stairs Dep - Communication N. Comprehension (B) Layo O. Expression (B) Layo - Social Cognition P. Social Interaction Layo Q. Problem Solving Layo R. Memory sup - Endurance Good - Balance Good - Safety Awareness Good QI SCORES: - Self-Care A. Eating 05-Setup or clean-up assistance B. Oral hygiene 05-Setup or clean-up assistance C. Toileting hygiene 05-Setup or clean-up assistance E. Shower/bathe self 05-Setup or clean-up assistance F. Upper body dressing 04-Supervision or touching assistance G. Lower body dressing 04-Supervision or touching assistance H. Putting on/taking off footwear 03-Partial/moderate assistance - Mobility A. Roll left and right 04-Supervision or touching assistance B. Sit to lying 03-Partial/moderate assistance C. Lying to sitting on side of bed 03-Partial/moderate assistance D. Sit to stand 03-Partial/moderate assistance E. Chair/pol-yz-iyftj transfer 03-Partial/moderate assistance F. Toilet transfer 03-Partial/moderate assistance G. Car transfer 88-Not attempted due to medical condition or safety concerns I. Walk 10 feet 04-Supervision or touching assistance J. Walk 50 feet with two turns 04-Supervision or touching assistance K. Walk 150 feet 88-Not attempted due to medical condition or safety concerns L. Walking 10 feet on uneven surfaces 88-Not attempted due to medical condition or safety concerns M. 1 step (curb) 88-Not attempted due to medical condition or safety concerns N. 4 steps 88-Not attempted due to medical condition or safety concerns O. 12 steps 88-Not attempted due to medical condition or safety concerns P. Picking up object 88-Not attempted due to medical condition or safety concerns R. Wheel 50 feet with two turns 02-Substantial/maximal assistance S. Wheel 150 feet 02-Substantial/maximal assistance - Bladder and Bowel Bladder continence 0-Always continent Bowel continence 0-Always continent - Endurance Fair - Balance Fair - Safety Awareness Fair [facility] DEFIC[facility]: Self-Care, Mobility, Endurance, Balance, and Safety Awareness SIGNATURE PANEL: ([employer]ZENGE [employer]KER HELPER)
--- NOTE | 2019-01-18 17:07 | PN ---
Date of Progress Note: 01/18/2019 Subjective: The patient was seen for followup this morning. He was in the gym, exercising with the therapist. Denied any specific complaints. No abdominal pain. No nausea or vomiting. Reports havi ng about 2 to 3 loose bowel movement in last 24 hours. Denies any dysphagia or odynophagia. Objective: Vital Signs: Reviewed. HEENT: Unremarkable. Lungs: Clear to auscultation. Heart: Sounds normal. Abdomen: Soft. Bowel sounds normoactive. Abdomen is distended with ascites. No guarding. No rigi dity. No tenderness. Extremities: Very trace leg edema in the lower 1/4th leg. Laboratory Data: Fingerstick blood sugar readings reviewed. Impression: 1.Cirrhosis of liver with ascites. 2.Hypertension. 3.Diabetes mellitus. 4.Generalized weakness. 5.Debility. 6.Candidal esophagitis. 7.Gastroesophageal reflux disease. 8.Type 2 diabetes mellitus. Plan: We will continue current insulin injection. We will continue current fluconazole and pantopra zole. Hopefully, we will be able to stop fluconazole tomorrow. Continue other current medications i ncluding insulin. Continue physical therapy per guidance of Dr. Butler. Continue current diuretic therapy. His systolic blood pressure is ranging anywhere from 93 to 110 systolic. So, at this poin t, we did not have any possibility of giving him more diuretic therapy except I have made try increasing the dose of spironolactone little bit to see if he can tole rate. KAITLYNN/MODL Voice ID: [id number] Report ID: [id number]
[2019-01-19] MEDS: LACTULOSE 20 GM/30 ML UCUP PO SCH ×6 (00:36→19:47)
[2019-01-19] MEDS: PANTOPRAZOLE 40MG TABLET PO SCH (06:24)
[2019-01-19 06:30] LABS: Absolute Lymphocytes (CBC) 1.8 K/uL (0.7-4.9); Basophils % 0.6 % (0-1.3); Lymphocytes % 18.3 % (15.3-44.8); MPV 8.6 fL (7.6-11.3)
[2019-01-19 07:10] LABS: Albumin 2.1 g/dL (3.4-5.0); Bilirubin Total 0.6 mg/dL (0.2-1.0); Magnesium 1.9 mg/dL (1.8-2.4); Protein, Total 5.9 g/dL (6.4-8.2)
[2019-01-19] MEDS: INSULIN -REGULAR HUMAN 50 UNIT/0.5 ML ML SQ SCH ×4 (07:30→19:49)
[2019-01-19] MEDS: SPIRONOLACTONE 25 MG TABLET PO SCH ×3 (08:00→19:47)
[2019-01-19] MEDS: ENSURE PUDDING 4 OZ CUP PO SCH ×2 (08:24→14:00)
[2019-01-19] MEDS: INSULIN GLARGINE 100 UNITS/ML SQ SCH (08:24)
[2019-01-19] MEDS: PROMOD 30 ML DOSE PO SCH ×2 (08:24→19:49)
[2019-01-19] MEDS: GLUCERNA SHAKE 237 ML CAN PO SCH ×2 (08:24→19:48)
[2019-01-19] MEDS: FLUCONAZOLE 100 MG TAB PO SCH (08:25)
[2019-01-19] MEDS: Rifaximin 550 MG Tab PO SCH ×2 (08:25→19:48)
[2019-01-19] MEDS: CYANOCOBALAMIN 1,000 MCG TAB PO SCH (08:25)
[2019-01-19] MEDS: FINASTERIDE 5 MG TAB PO SCH (08:26)
[2019-01-19] MEDS: allopurinoL 300 MG TAB PO SCH (08:26)
[2019-01-19] MEDS: ASPIRIN EC 81 MG TAB PO SCH (08:26)
[2019-01-19] MEDS: MAGNESIUM OXIDE 400 MG TAB PO SCH (08:27)
[2019-01-19] MEDS: FUROSEMIDE 20 MG TABLET PO SCH (09:45)
--- NOTE | 2019-01-19 16:01 | PN ---
Date of Progress Note: 01/19/2019 Subjective: Patient was seen this morning for followup. He was sitting in the chair. His was with him at bedside. Overall, he feels better. His appetite is improving. He eats better when his is present at mealtime and she tries to be here at every meal time. Objective: Vital Signs: Reviewed. HEENT: Unremarkable. Lungs: Clear to auscultation. Heart: Sounds normal. Abdomen: Soft. No guarding, rigidity, tenderness. Abdomen is distended with ascites and he has mor e ascitic fluid now than what he did have a few days ago. Extremity: Very trace leg edema. Laboratory Data: White count 9.9, hemoglobin 11.1, platelets 184. Sodium 135, potassium 4, chloride 104, bicarb 23, BUN 29, creatinine 1.36, glucose 120. Liver function tests unremarkable. Albumin 2 .1. Impression: 1.Cirrhosis of liver. 2.Hepatic encephalopathy, resolved. 3.Generalized weakness. 4.Debility. 5.Candidal esophagitis. 6.Gastroesophageal reflux disease. Plan: Patient has received 10 days of Diflucan. We will discontinue now Diflucan. Continue pantopr azole. Vital signs reviewed. His systolic blood pressure is ranging anywhere between 90-110 range. I will increase the dose of spironolactone 25 mg from once a day to 2 times a day. We will continue current dose of furosemide. Patient will need paracentesis scheduled to go home on January 25 and we will plan to do paracentesis probably on or Sunday of this coming week. Details and plan of treatment discussed with the patient and patient's . I will se e him tomorrow for followup. KAITLYNN/MODL Voice ID: [id number] Report ID: [id number]
[2019-01-20] MEDS: LACTULOSE 20 GM/30 ML UCUP PO SCH ×6 (00:32→20:43)
[2019-01-20] MEDS: PANTOPRAZOLE 40MG TABLET PO SCH (06:19)
[2019-01-20] MEDS: INSULIN -REGULAR HUMAN 50 UNIT/0.5 ML ML SQ SCH ×4 (06:51→20:42)
[2019-01-20] MEDS: INSULIN GLARGINE 100 UNITS/ML SQ SCH (06:59)
[2019-01-20] MEDS: FINASTERIDE 5 MG TAB PO SCH (07:00)
[2019-01-20] MEDS: Rifaximin 550 MG Tab PO SCH ×2 (07:00→19:52)
[2019-01-20] MEDS: CYANOCOBALAMIN 1,000 MCG TAB PO SCH (07:00)
[2019-01-20] MEDS: MAGNESIUM OXIDE 400 MG TAB PO SCH (07:00)
[2019-01-20] MEDS: ASPIRIN EC 81 MG TAB PO SCH (07:00)
[2019-01-20] MEDS: allopurinoL 300 MG TAB PO SCH (07:01)
[2019-01-20] MEDS: FUROSEMIDE 20 MG TABLET PO SCH (07:01)
[2019-01-20] MEDS: GLUCERNA SHAKE 237 ML CAN PO SCH ×2 (07:02→19:52)
[2019-01-20] MEDS: SPIRONOLACTONE 25 MG TABLET PO SCH (07:03)
[2019-01-20] MEDS: PROMOD 30 ML DOSE PO SCH ×2 (07:04→19:52)
[2019-01-20] MEDS: ENSURE PUDDING 4 OZ CUP PO SCH ×2 (08:03→13:00)
[2019-01-20] MEDS ORDERED: SPIRONOLACTONE 25 MG TABLET PO SCH (08:48)
[2019-01-20] MEDS ORDERED: BACLOFEN 10 MG TAB PO PRN (13:15)
--- NOTE | 2019-01-20 16:08 | FAST ---
SHIFT START DATE/TIME: 01/20/2019 07:00 (RESERVE OFFICER) SHIFT END DATE/TIME: 01/20/2019 19:00 (RESERVE OFFICER) NAME MAURY CRUZ DATE OF : 1935 DATE OF ADMISSION: 01/13/2019 17:07 (RESERVE OFFICER) PHONE: AGE: 83 SSN# [id number] GENDER: Male ENCOUNTER PHYSICIAN: Dr. Alexy Butler M.D. ADMISSION DIAGNOSIS: - Debility 16 - Debility (16) Liver Cirrhosis. EATING: EATING - STEP 1: Does the patient complete the activity by him/herself with no assistance (physical, verbal/nonverbal cueing, setup/clean-up)? No. EATING - STEP 2: Does the patient need only setup/clean-up assistance from one helper? No. EATING - STEP 3: Does the patient need only verbal/nonverbal cueing or touching/steadying/contact guard assistance fro m one helper? No. EATING - STEP 4: Does the patient need physical assistance - for example lifting or trunk support from one helper - wi th the helper providing less than half of the effort? Yes. 1. [id number] ADMISSION PERFORMANCE: Partial/moderate assistance CODE: 03 ORAL HYGIENE: ORAL HYGIENE - STEP 1: Does the patient complete the activity by him/herself with no assistance (physical, verbal/nonverbal cueing, setup/clean-up)? No. ORAL HYGIENE - STEP 2: Does the patient need only setup/clean-up assistance from one helper? Yes. 1. [id number] ADMISSION PERFORMANCE: Setup or clean-up assistance CODE: 05 TOILETING HYGIENE: TOILETING HYGIENE - STEP 1: Does the patient complete the activity by him/herself with no assistance (physical, verbal/nonverbal cueing, setup/clean-up)? No. TOILETING HYGIENE - STEP 2: Does the patient need only setup/clean-up assistance from one helper? Yes. TOILETING HYGIENE - STEP 3: Does the patient need only verbal/nonverbal cueing or touching/steadying/contact guard assistance fro m one helper? Yes. 1. [id number] ADMISSION PERFORMANCE: Supervision or touching assistance CODE: 04 BATHING: Not assessed/no information CODE: - DRESSING - UPPER BODY: DRESSING - UPPER BODY - STEP 1: Does the patient complete the activity by him/herself with no assistance (physical, verbal/nonverbal cueing, setup/clean-up)? No. DRESSING - UPPER BODY - STEP 2: Does the patient need only setup/clean-up assistance from one helper? No. DRESSING - UPPER BODY - STEP 3: Does the patient need only verbal/nonverbal cueing or touching/steadying/contact guard assistance fro m one helper? Yes. 1. [id number] ADMISSION PERFORMANCE: Supervision or touching assistance CODE: 04 DRESSING - LOWER BODY: DRESSING - LOWER BODY - STEP 1: Does the patient complete the activity by him/herself with no assistance (physical, verbal/nonverbal cueing, setup/clean-up)? No. DRESSING - LOWER BODY - STEP 2: Does the patient need only setup/clean-up assistance from one helper? No. DRESSING - LOWER BODY - STEP 3: Does the patient need only verbal/nonverbal cueing or touching/steadying/contact guard assistance fro m one helper? No. DRESSING - LOWER BODY - STEP 4: Does the patient need physical assistance - for example lifting or trunk support from one helper - wi th the helper providing less than half of the effort? Yes. 1. [id number] ADMISSION PERFORMANCE: Partial/moderate assistance CODE: 03 PUTTING ON/TAKING OFF FOOTWEAR: FOOTWEAR - STEP 1: Does the patient complete the activity by him/herself with no assistance (physical, verbal/nonverbal cueing, setup/clean-up)? No. FOOTWEAR - STEP 2: Does the patient need only setup/clean-up assistance from one helper? No. FOOTWEAR - STEP 3: Does the patient need only verbal/nonverbal cueing or touching/steadying/contact guard assistance fro m one helper? Yes. 1. [id number] ADMISSION PERFORMANCE: Supervision or touching assistance CODE: 04 ROLL LEFT AND RIGHT: ROLL LEFT AND RIGHT - STEP 1: Does the patient complete the activity by him/herself with no assistance (physical, verbal/nonverbal cueing, setup/clean-up)? No. ROLL LEFT AND RIGHT - STEP 2: Does the patient need only setup/clean-up assistance from one helper? No. ROLL LEFT AND RIGHT - STEP 3: Does the patient need only verbal/nonverbal cueing or touching/steadying/contact guard assistance fro m one helper? Yes. 1. [id number] ADMISSION PERFORMANCE: Supervision or touching assistance CODE: 04 SIT TO LYING: SIT TO LYING - STEP 1: Does the patient complete the activity by him/herself with no assistance (physical, verbal/nonverbal cueing, setup/clean-up)? No. SIT TO LYING - STEP 2: Does the patient need only setup/clean-up assistance from one helper? No. SIT TO LYING - STEP 3: Does the patient need only verbal/nonverbal cueing or touching/steadying/contact guard assistance fro m one helper? Yes. 1. [id number] ADMISSION PERFORMANCE: Supervision or touching assistance CODE: 04 LYING TO SITTING: LYING TO SITTING ON SIDE OF BED - STEP 1: Does the patient complete the activity by him/herself with no assistance (physical, verbal/nonverbal cueing, setup/clean-up)? No. LYING TO SITTING ON SIDE OF BED - STEP 2: Does the patient need only setup/clean-up assistance from one helper? No. LYING TO SITTING ON SIDE OF BED - STEP 3: Does the patient need only verbal/nonverbal cueing or touching/steadying/contact guard assistance fro m one helper? Yes. 1. [id number] ADMISSION PERFORMANCE: Supervision or touching assistance CODE: 04 SIT TO STAND: SIT TO STAND - STEP 1: Does the patient complete the activity by him/herself with no assistance (physical, verbal/nonverbal cueing, setup/clean-up)? No. SIT TO STAND - STEP 2: Does the patient need only setup/clean-up assistance from one helper? No. SIT TO STAND - STEP 3: Does the patient need only verbal/nonverbal cueing or touching/steadying/contact guard assistance fro m one helper? Yes. 1. [id number] ADMISSION PERFORMANCE: Supervision or touching assistance CODE: 04 TRANSFERS: BED, CHAIR: CHAIR/[id number] TRANSFER - STEP 1: Does the patient complete the activity by him/herself with no assistance (physical, verbal/nonverbal cueing, setup/clean-up)? No. CHAIR/[id number] TRANSFER - STEP 2: Does the patient need only setup/clean-up assistance from one helper? No. CHAIR/[id number] TRANSFER - STEP 3: Does the patient need only verbal/nonverbal cueing or touching/steadying/contact guard assistance fro m one helper? Yes. 1. [id number] ADMISSION PERFORMANCE: Supervision or touching assistance CODE: 04 TRANSFER TOILET: TOILET TRANSFER - STEP 1: Does the patient complete the activity by him/herself with no assistance (physical, verbal/nonverbal cueing, setup/clean-up)? Yes. TOILET TRANSFER - STEP 2: Does the patient need only setup/clean-up assistance from one helper? No. TOILET TRANSFER - STEP 3: Does the patient need only verbal/nonverbal cueing or touching/steadying/contact guard assistance fro m one helper? Yes. 1. [id number] ADMISSION PERFORMANCE: Supervision or touching assistance CODE: 04 TRANSFERS: CAR: Not assessed/no information CODE: - WALK 10 FEET: Not assessed/no information CODE: - 1 STEP (CURB): Not assessed/no information CODE: - PICKING UP OBJECT: Not assessed/no information CODE: - DOES THE PATIENT USE A WHEELCHAIR/SCOOTER? Q1. DOES THE PATIENT USE A WHEELCHAIR/SCOOTER?: Yes CODE: 1 WHEEL 50 FEET WITH TWO TURNS: WHEEL 50 FEET WITH TWO TURNS - STEP 1: Does the patient complete the activity by him/herself with no assistance (physical, verbal/nonverbal cueing, setup/clean-up)? No. WHEEL 50 FEET WITH TWO TURNS - STEP 2: Does the patient need only setup/clean-up assistance from one helper? No. WHEEL 50 FEET WITH TWO TURNS - STEP 3: Does the patient need only verbal/nonverbal cueing or touching/steadying/contact guard assistance fro m one helper? Yes. 1. [id number] ADMISSION PERFORMANCE: Supervision or touching assistance CODE: 04 INDICATE THE TYPE OF WHEELCHAIR/SCOOTER USED: RR1. INDICATE THE TYPE OF WHEELCHAIR/SCOOTER USED.: Manual CODE: 1 WHEEL 150 FEET: WHEEL 150 FEET - STEP 1: Does the patient complete the activity by him/herself with no assistance (physical, verbal/nonverbal cueing, setup/clean-up)? No. WHEEL 150 FEET - STEP 2: Does the patient need only setup/clean-up assistance from one helper? No. WHEEL 150 FEET - STEP 3: Does the patient need only verbal/nonverbal cueing or touching/steadying/contact guard assistance fro m one helper? Yes. 1. [id number] ADMISSION PERFORMANCE: Supervision or touching assistance CODE: 04 INDICATE THE TYPE OF WHEELCHAIR/SCOOTER USED: SS1. INDICATE THE TYPE OF WHEELCHAIR/SCOOTER USED.: Manual CODE: 1 BLADDER AND BOWEL: H350. BLADDER CONTINENCE (3-DAY ASSESSMENT PERIOD): Always continent (no documented incontinence) CODE: 0 H400. BOWEL CONTINENCE (3-DAY ASSESSMENT PERIOD): Always continent CODE: 0 SIGNATURE PANEL: The following modified sections: 1. [id number] Admission Performance, 1. [id number] Admission Performance, 1. TR1127K Admission Performance, 1. [id number] Admission Performance, 1. CC8446D Admission Performance, 1. QA6448I Admission Performance, 1. SK5107h Admission Performance, 1. XX0350t Admission Performance , 1. RW0912z Admission Performance, 1. WZ5056a Admission Performance, 1. JA7463c Admission Performanc e, 1. [id number] Admission Performance, 1. TH1172O Admission Performance, 1. VP2480S Admission Performan ce, 1. WL5141W Admission Performance, 1. HN7328Q Admission Performance, 1. ME4612N Admission Performa nce, 1. QR3689R Admission Performance, 1. IS0515X Admission Performance, Q1. Does the patient use a w heelchair/scooter?, 1. HC0805E Admission Performance, 1. WO2873U Admission Performance, RR1. Indicate the type of wheelchair/scooter used., 1. ZB0081S Admission Performance, Code, SS1. Indicate the type of wheelchair/scooter used., H350. Bladder Continence (3-day assessment period), H400. Bowel Contine nce (3-day assessment period) were [electronically] signed by Dara Fritz C.N.A. on SunJan 20 2019 16:07:39 GMT-0600 (Central Standard Time)
[2019-01-20] MEDS: ONDANSETRON 4 MG (ODT) TAB PO PRN (16:48)
[2019-01-20 17:01] LABS: Hematocrit 33.5 % (39.6-49.0)
--- NOTE | 2019-01-20 17:17 | RAD REPORT ---
EXAM DESCRIPTION: RAD - Chest Single View - 01/20/2019 5:11 pm CLINICAL HISTORY: r/o pneumonia Chest pain. COMPARISON: Chest Single View dated 11/17/2018; Chest Pa And Lat (2 Views) dated 03/01/2018; Chest Pa And Lat (2 Views) dated 03/10/2017; Chest Pa And Lat (2 Views) dated 03/08/2017 FINDINGS: Portable technique limits examination quality. Emphysematous changes are present throughout the lungs. Interstitial prominence is present with could indicate viral pneumonitis and/or bronchitis. No focal consolidation typical of pneumonia evident. 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 No displaced fractures.Aortic atherosclerosis.
--- NOTE | 2019-01-20 17:18 | RAD REPORT ---
EXAM DESCRIPTION: RAD - Abdomen 1 View (KUB) - 01/20/2019 5:11 pm CLINICAL HISTORY: r/o obstruction Pain COMPARISON: Paracentesis Proc Guidance dated 01/09/2019; Paracentesis Proc Guidance dated 12/09/2018 ; Abdomen Exam Limited dated 11/29/2018; Abdomen Pelvis Wo Contrast dated 11/17/2018 FINDINGS: Distended bowel loop is present in the mid abdomen, probably colon. A bowel obstruction pa ttern is not confirmed. No free intraperitoneal air seen.Hazy appearance to the radiograph likely ind icates presence of ascites.
[2019-01-20 17:21] LABS: Bilirubin Direct 0.3 mg/dL (0-0.2); Bilirubin Total 0.5 mg/dL (0.2-1.0)
[2019-01-20 17:57] LABS: Absolute Lymphocytes (CBC) 1.5 K/uL (0.7-4.9); Basophils % 0.4 % (0-1.3); Hematocrit 33.4 % (39.6-49.0); Lymphocytes % 16.6 % (15.3-44.8); MPV 9.2 fL (7.6-11.3); RBC Red Blood Cell Count 3.82 M/uL (4.33-5.43)
[2019-01-20 18:19] LABS: Potassium 3.8 mmol/L (3.5-5.1)
[2019-01-20] MEDS ORDERED: MAGNES/ALUMIN/SIMET 30ML UCUP PO PRN (18:58)
[2019-01-20] MEDS ORDERED: AZITHROMYCIN 250 MG TAB PO ONE (19:48)
[2019-01-20] MEDS: ACETAMINOPHEN 500 MG TAB PO PRN (20:45)
[2019-01-21] MEDS: LACTULOSE 20 GM/30 ML UCUP PO SCH ×6 (01:00→20:31)
--- NOTE | 2019-01-21 01:26 | PN ---
Date of Progress Note: 01/20/2019 Subjective: Patient was seen this morning for followup. No new complaints or problems reported by ayleen gaviria. Lying in bed, not in distress. Objective: Vital Signs: Reviewed. HEENT: Unremarkable. Lungs: Clear to auscultation. Heart: Sounds normal. Abdomen: Soft, distended with ascites. No guarding, rigidity, tenderness. Extremities: Trace leg edema unchanged. Laboratory Data: CBC, chemistry from this evening reviewed. Chest x-ray from today reviewed. Impression: 1.Acute bronchitis, rule out pneumonia. 2.Cirrhosis of liver with ascites. 3.Acute kidney injury. Plan: Patient's renal function is deteriorating. This evening, creatinine is 1.64, day before yeste rday it was 1.3 and prior to that it was normal. So what I will do is right now, I will discontinue his spironolactone. Chest x-ray, raising possibility of some interstitial pneumonitis type of proble m and the patient was coughing up some brownish colored mucus today, so we will go ahead and start hi m on antibiotic azithromycin. His hemoglobin is stable. There is no evidence of hematemesis. I frantz l see him tomorrow for followup. KAITLYNN/MODL Voice ID: [id number] Report ID: [id number]
[2019-01-21] MEDS: INSULIN -REGULAR HUMAN 50 UNIT/0.5 ML ML SQ SCH ×4 (07:30→20:31)
[2019-01-21] MEDS: PANTOPRAZOLE 40MG TABLET PO SCH (07:30)
[2019-01-21] MEDS: PROMOD 30 ML DOSE PO SCH ×2 (08:00→20:31)
[2019-01-21] MEDS: GLUCERNA SHAKE 237 ML CAN PO SCH ×2 (08:00→20:31)
[2019-01-21] MEDS: ASPIRIN EC 81 MG TAB PO SCH (08:00)
[2019-01-21] MEDS: FINASTERIDE 5 MG TAB PO SCH (08:56)
[2019-01-21] MEDS: CYANOCOBALAMIN 1,000 MCG TAB PO SCH (08:56)
[2019-01-21] MEDS: MAGNESIUM OXIDE 400 MG TAB PO SCH (08:57)
[2019-01-21] MEDS: allopurinoL 300 MG TAB PO SCH (08:57)
[2019-01-21] MEDS: AZITHROMYCIN 250 MG TAB PO SCH (08:57)
[2019-01-21] MEDS: Rifaximin 550 MG Tab PO SCH ×2 (08:57→20:30)
[2019-01-21] MEDS: FUROSEMIDE 20 MG TABLET PO SCH (08:58)
[2019-01-21] MEDS: INSULIN GLARGINE 100 UNITS/ML SQ SCH (09:15)
[2019-01-21] MEDS: ENSURE PUDDING 4 OZ CUP PO SCH ×2 (09:24→14:20)
--- NOTE | 2019-01-21 10:25 | R.PN ---
ENCOUNTER DATE AND TIME: 01/20/2019 10:18 (NEUROLOGIST) NAME MAURY CRUZ DATE OF : 1935 DATE OF ADMISSION: 01/13/2019 17:07 (NEUROLOGIST) Liver CirrhosisCHIEF COMPLAINT: Debility SUBJECTIVE: Pt denied any depression. Pt denied any Shortness of Breath. He is doing much better today with ammonia down to the 20s. He is more alert and participates well w [facility] physical therapy. Hgb 11.2, WBC 8.9, Glucose 152 to 175, prealbumin 9.8. He is on hemocyte plus and promod. Ambulated 750' with standby assistance using a rolling walker. Up and down 15 steps with standby assi stance. KUB and chest X-ray show no obstruction and emphysematous pattern and possible viral pneumoni tis or bronchitis. Ambulated 250 feet and 500 feet with standby assistance using a rolling walker. VITAL SIGNS Temperature: 98.0 F SBP/DBP: 103/62 Pulse: 97 Resp: 18 MEDICATION ALLERGIES: Penicillin ENVIRONMENTAL ALLERGIES: None Known - Substance Allergies None Known - Other Allergies None Known NURSING: - Shower allowing shower - Lab Results blood Sugar Check ACHS ACTIVITIES OOB only with supervision THERAPIES: - Dietary and Nutrition Adequate Nutrition. Nutritional Education. Nutritional Supplements. PHYSICAL EXAM - Gen Alert and awake Lying in bed No apparent distress Oriented to: person, time, and place - Skin No skin breakdown. No abnormalities - Eyes No abnormalities - ENMT No abnormalities - Neck No abnormalities - CVS RRR - Chest No abnormalities - Resp Clear to auscultation - Abd Distended - GI + bowel sounds Deferred - No abnormalities - Ext Mild bilateral lower extremity edema. - MSK 4+/5 weakness in both lower extremities. - Neuro 4/5 strength bilaterally upper and lower extremities. - Psych No abnormalities ASSESSMENT: Pt. is a 83 yo Right-handed white male.On 01/09/2019 he was admitted to [facility] with diagnosis Liver Cirrhosis.His impairment category is Debility 16 - Debility (16).Pre-morbid ly, Pt. was independent/mod-I in Locomotion, Safety Awareness, Balance, Social Cognition, Transfers C ontrol, Self-Care, Endurance, Sphincter Control, and Communication; and he had good Locomotion, Darlin ce, Safety Awareness, Social Cognition, Transfers Control, Sphincter Control, Self-Care, Communicatio n, and Endurance.Currently, he has deficits of Locomotion, Balance, Safety Awareness, Social Cognitio n, Transfers Control, Sphincter Control, Self-Care, and Communication.Pt. is now referred to [facility] for acute in-patient rehabilitation in order to maximize patient's function al independence in activities of daily living, strength, ROM, and mobility.- Rehab Goal Patient has realistic goal of being discharged at assistance level 6-Layo to reside at Home with Fam denise/Relatives. MDM/PLAN: - Physical Therapy Gait dysfunction - to improve, our physical therapists will perform initial evaluation of pt's statu s upon admission and devise an individualized program for Gait Training, and Wheel Chair mobility Inability to transfer - to improve, our physical therapists will perform initial evaluation of pt's status upon admission and devise an individualized program for Bed mobility Need for home safety evaluation - to improve, our physical therapists will perform initial evaluatio n of pt's status upon admission and devise an individualized program for Home Evaluation Need in caregiver upon discharge - to improve, our physical therapists will perform initial evaluati on of pt's status upon admission and devise an individualized program for Caregiver Training Edema - to improve, our physical therapists will perform initial evaluation of pt's status upon admi ssion and devise an individualized program for Elevation Training, and Lymphedema Therapy New precaution - to improve, our physical therapists will perform initial evaluation of pt's status upon admission and devise an individualized program for Patient precaution education Poor balance - to improve, our physical therapists will perform initial evaluation of pt's status up on admission and devise an individualized program for Balance Training Weakness - to improve, our physical therapists will perform initial evaluation of pt's status upon a dmission and devise an individualized program for Aquatic Therapy, Neuromuscular Reeducation, and Str engthening Achieving independence - to improve, our physical therapists will perform initial evaluation of pt's status upon admission and devise an individualized program for Community Reintegration Activities - Occupational Therapy ADL deficits - to improve, our occupation therapists will perform initial evaluation of pt's status upon admission and devise an individualized program for Bathing, Bed mobility, Community Reintegratio n, Cooking, Dressing, Eating, Fine Motor Skills, Grooming, Homemaking, Kitchen Mobility, Laundry, Pat ient Education, Safety Awareness, Splinting - Positioning, Transfers(Toilet, Tub, Shower), and Wheel Chair Management Cognitive deficits - to improve, our occupation therapists will perform initial evaluation of pt's s tatus upon admission and devise an individualized program for Cognition - orientation Need for adult care provider - to improve, our occupation therapists will perform initial evaluation of pt's status upon admission and devise an individualized program for Caregiver Training Weakness - to improve, our occupation therapists will perform initial evaluation of pt's status upon admission and devise an individualized program for Aquatic Therapy, Balance, Endurance, UE ROM, and UE strengthening - Other See attached MAR (Medication Administration Record) - N/A Medical management by Dr. Andres. - Diet Type Continue Regular - Diet - Liquid Texture Continue Regular - Tube Feed Continue N/A - Lab Results blood Sugar Check ACHS - Diet - Solid Texture Continue Regular - Shower allowing shower FUNCTIONAL STATUS: UPDATED AT WEEKLY TEAM CONFERENCE - Bladder Same accident frequency: 7-Ind - No accidents in the past 7 days - Bowel Same accident frequency: 7-Ind - No accidents in the past 7 days - Walking Same score based on distance walked: 0(N/A) Same score based on distance walked: 2(50-149ft) - Wheelchair Same score based on distance traveled: 0(N/A) Same score based on distance traveled: 2(50-149ft) FUNCTIONAL STATUS: - Self-Care A. Eating Ind B. Grooming Layo C. Bathing Ernst D. Dressing - Upper Ernst E. Dressing - Lower modA F. Toileting sup - Sphincter Control G. Bladder control Ernst H. Bowel control Ernst - Transfers Control I. Bed/Chair/Wheelchair Ernst J. Toilet Ernst K. Tub/Shower modA - Locomotion L. Walk/Wheelchair (B) Ernst M. Stairs Dep - Communication N. Comprehension (B) Layo O. Expression (B) Layo - Social Cognition P. Social Interaction Layo Q. Problem Solving Layo R. Memory sup - Endurance Good - Balance Good - Safety Awareness Good QI SCORES: - Self-Care A. Eating 05-Setup or clean-up assistance B. Oral hygiene 05-Setup or clean-up assistance C. Toileting hygiene 05-Setup or clean-up assistance E. Shower/bathe self 05-Setup or clean-up assistance F. Upper body dressing 04-Supervision or touching assistance G. Lower body dressing 04-Supervision or touching assistance H. Putting on/taking off footwear 03-Partial/moderate assistance - Mobility A. Roll left and right 04-Supervision or touching assistance B. Sit to lying 03-Partial/moderate assistance C. Lying to sitting on side of bed 03-Partial/moderate assistance D. Sit to stand 03-Partial/moderate assistance E. Chair/kal-bi-fgnhi transfer 03-Partial/moderate assistance F. Toilet transfer 03-Partial/moderate assistance G. Car transfer 88-Not attempted due to medical condition or safety concerns I. Walk 10 feet 04-Supervision or touching assistance J. Walk 50 feet with two turns 04-Supervision or touching assistance K. Walk 150 feet 88-Not attempted due to medical condition or safety concerns L. Walking 10 feet on uneven surfaces 88-Not attempted due to medical condition or safety concerns M. 1 step (curb) 88-Not attempted due to medical condition or safety concerns N. 4 steps 88-Not attempted due to medical condition or safety concerns O. 12 steps 88-Not attempted due to medical condition or safety concerns P. Picking up object 88-Not attempted due to medical condition or safety concerns R. Wheel 50 feet with two turns 02-Substantial/maximal assistance S. Wheel 150 feet 02-Substantial/maximal assistance - Bladder and Bowel Bladder continence 0-Always continent Bowel continence 0-Always continent - Endurance Fair - Balance Fair - Safety Awareness Fair [facility] DEFICITS: Self-Care, Mobility, Endurance, Balance, and Safety Awareness SIGNATURE PANEL: (NEUROLOGIST)
--- NOTE | 2019-01-21 14:18 | FAST ---
SHIFT START DATE/TIME: 01/21/2019 07:00 (SENIOR COMMISSIONS ANALYST) SHIFT END DATE/TIME: 01/21/2019 19:00 (SENIOR COMMISSIONS ANALYST) NAME MAURY CRUZ DATE OF : 1935 DATE OF ADMISSION: 01/13/2019 17:07 (SENIOR COMMISSIONS ANALYST) PHONE: AGE: 83 SSN# [id number] GENDER: Male ENCOUNTER PHYSICIAN: Dr. Alexy Butler M.D. ADMISSION DIAGNOSIS: - Debility 16 - Debility (16) Liver Cirrhosis. EATING: EATING - STEP 1: Does the patient complete the activity by him/herself with no assistance (physical, verbal/nonverbal cueing, setup/clean-up)? No. EATING - STEP 2: Does the patient need only setup/clean-up assistance from one helper? No. EATING - STEP 3: Does the patient need only verbal/nonverbal cueing or touching/steadying/contact guard assistance fro m one helper? No. EATING - STEP 4: Does the patient need physical assistance - for example lifting or trunk support from one helper - wi th the helper providing less than half of the effort? Yes. 1. [id number] ADMISSION PERFORMANCE: Partial/moderate assistance CODE: 03 ORAL HYGIENE: ORAL HYGIENE - STEP 1: Does the patient complete the activity by him/herself with no assistance (physical, verbal/nonverbal cueing, setup/clean-up)? No. ORAL HYGIENE - STEP 2: Does the patient need only setup/clean-up assistance from one helper? Yes. 1. [id number] ADMISSION PERFORMANCE: Setup or clean-up assistance CODE: 05 TOILETING HYGIENE: TOILETING HYGIENE - STEP 1: Does the patient complete the activity by him/herself with no assistance (physical, verbal/nonverbal cueing, setup/clean-up)? No. TOILETING HYGIENE - STEP 2: Does the patient need only setup/clean-up assistance from one helper? No. TOILETING HYGIENE - STEP 3: Does the patient need only verbal/nonverbal cueing or touching/steadying/contact guard assistance fro m one helper? Yes. 1. [id number] ADMISSION PERFORMANCE: Supervision or touching assistance CODE: 04 BATHING: SHOWER/BATHE SELF - STEP 1: Does the patient complete the activity by him/herself with no assistance (physical, verbal/nonverbal cueing, setup/clean-up)? No. SHOWER/BATHE SELF - STEP 2: Does the patient need only setup/clean-up assistance from one helper? No. SHOWER/BATHE SELF - STEP 3: Does the patient need only verbal/nonverbal cueing or touching/steadying/contact guard assistance fro m one helper? Yes. 1. [id number] ADMISSION PERFORMANCE: Supervision or touching assistance CODE: 04 DRESSING - UPPER BODY: DRESSING - UPPER BODY - STEP 1: Does the patient complete the activity by him/herself with no assistance (physical, verbal/nonverbal cueing, setup/clean-up)? No. DRESSING - UPPER BODY - STEP 2: Does the patient need only setup/clean-up assistance from one helper? No. DRESSING - UPPER BODY - STEP 3: Does the patient need only verbal/nonverbal cueing or touching/steadying/contact guard assistance fro m one helper? No. DRESSING - UPPER BODY - STEP 4: Does the patient need physical assistance - for example lifting or trunk support from one helper - wi th the helper providing less than half of the effort? Yes. 1. [id number] ADMISSION PERFORMANCE: Partial/moderate assistance CODE: 03 DRESSING - LOWER BODY: DRESSING - LOWER BODY - STEP 1: Does the patient complete the activity by him/herself with no assistance (physical, verbal/nonverbal cueing, setup/clean-up)? No. DRESSING - LOWER BODY - STEP 2: Does the patient need only setup/clean-up assistance from one helper? No. DRESSING - LOWER BODY - STEP 3: Does the patient need only verbal/nonverbal cueing or touching/steadying/contact guard assistance fro m one helper? No. DRESSING - LOWER BODY - STEP 4: Does the patient need physical assistance - for example lifting or trunk support from one helper - wi th the helper providing less than half of the effort? Yes. 1. [id number] ADMISSION PERFORMANCE: Partial/moderate assistance CODE: 03 PUTTING ON/TAKING OFF FOOTWEAR: FOOTWEAR - STEP 1: Does the patient complete the activity by him/herself with no assistance (physical, verbal/nonverbal cueing, setup/clean-up)? No. FOOTWEAR - STEP 2: Does the patient need only setup/clean-up assistance from one helper? No. FOOTWEAR - STEP 3: Does the patient need only verbal/nonverbal cueing or touching/steadying/contact guard assistance fro m one helper? Yes. 1. [id number] ADMISSION PERFORMANCE: Supervision or touching assistance CODE: 04 ROLL LEFT AND RIGHT: ROLL LEFT AND RIGHT - STEP 1: Does the patient complete the activity by him/herself with no assistance (physical, verbal/nonverbal cueing, setup/clean-up)? No. ROLL LEFT AND RIGHT - STEP 2: Does the patient need only setup/clean-up assistance from one helper? No. ROLL LEFT AND RIGHT - STEP 3: Does the patient need only verbal/nonverbal cueing or touching/steadying/contact guard assistance fro m one helper? No. ROLL LEFT AND RIGHT - STEP 4: Does the patient need physical assistance - for example lifting or trunk support from one helper - wi th the helper providing less than half of the effort? No. ROLL LEFT AND RIGHT - STEP 5: Does the patient need physical assistance - for example lifting or trunk support from one helper - wi th the helper providing more than half of the effort? Yes. 1. [id number] ADMISSION PERFORMANCE: Substantial/maximal assistance CODE: 02 SIT TO LYING: SIT TO LYING - STEP 1: Does the patient complete the activity by him/herself with no assistance (physical, verbal/nonverbal cueing, setup/clean-up)? No. SIT TO LYING - STEP 2: Does the patient need only setup/clean-up assistance from one helper? No. SIT TO LYING - STEP 3: Does the patient need only verbal/nonverbal cueing or touching/steadying/contact guard assistance fro m one helper? Yes. 1. [id number] ADMISSION PERFORMANCE: Supervision or touching assistance CODE: 04 LYING TO SITTING: LYING TO SITTING ON SIDE OF BED - STEP 1: Does the patient complete the activity by him/herself with no assistance (physical, verbal/nonverbal cueing, setup/clean-up)? No. LYING TO SITTING ON SIDE OF BED - STEP 2: Does the patient need only setup/clean-up assistance from one helper? No. LYING TO SITTING ON SIDE OF BED - STEP 3: Does the patient need only verbal/nonverbal cueing or touching/steadying/contact guard assistance fro m one helper? Yes. 1. [id number] ADMISSION PERFORMANCE: Supervision or touching assistance CODE: 04 SIT TO STAND: SIT TO STAND - STEP 1: Does the patient complete the activity by him/herself with no assistance (physical, verbal/nonverbal cueing, setup/clean-up)? No. SIT TO STAND - STEP 2: Does the patient need only setup/clean-up assistance from one helper? No. SIT TO STAND - STEP 3: Does the patient need only verbal/nonverbal cueing or touching/steadying/contact guard assistance fro m one helper? Yes. 1. [id number] ADMISSION PERFORMANCE: Supervision or touching assistance CODE: 04 TRANSFERS: BED, CHAIR: CHAIR/[id number] TRANSFER - STEP 1: Does the patient complete the activity by him/herself with no assistance (physical, verbal/nonverbal cueing, setup/clean-up)? No. CHAIR/[id number] TRANSFER - STEP 2: Does the patient need only setup/clean-up assistance from one helper? No. CHAIR/[id number] TRANSFER - STEP 3: Does the patient need only verbal/nonverbal cueing or touching/steadying/contact guard assistance fro m one helper? No. CHAIR/[id number] TRANSFER - STEP 4: Does the patient need physical assistance - for example lifting or trunk support from one helper - wi th the helper providing less than half of the effort? Yes. 1. [id number] ADMISSION PERFORMANCE: Partial/moderate assistance CODE: 03 TRANSFER TOILET: TOILET TRANSFER - STEP 1: Does the patient complete the activity by him/herself with no assistance (physical, verbal/nonverbal cueing, setup/clean-up)? No. TOILET TRANSFER - STEP 2: Does the patient need only setup/clean-up assistance from one helper? No. TOILET TRANSFER - STEP 3: Does the patient need only verbal/nonverbal cueing or touching/steadying/contact guard assistance fro m one helper? Yes. 1. [id number] ADMISSION PERFORMANCE: Supervision or touching assistance CODE: 04 TRANSFERS: CAR: Not assessed/no information CODE: - WALK 10 FEET: Not assessed/no information CODE: - 1 STEP (CURB): Not assessed/no information CODE: - PICKING UP OBJECT: Not assessed/no information CODE: - DOES THE PATIENT USE A WHEELCHAIR/SCOOTER? Q1. DOES THE PATIENT USE A WHEELCHAIR/SCOOTER?: Yes CODE: 1 WHEEL 50 FEET WITH TWO TURNS: WHEEL 50 FEET WITH TWO TURNS - STEP 1: Does the patient complete the activity by him/herself with no assistance (physical, verbal/nonverbal cueing, setup/clean-up)? No. WHEEL 50 FEET WITH TWO TURNS - STEP 2: Does the patient need only setup/clean-up assistance from one helper? No. WHEEL 50 FEET WITH TWO TURNS - STEP 3: Does the patient need only verbal/nonverbal cueing or touching/steadying/contact guard assistance fro m one helper? No. WHEEL 50 FEET WITH TWO TURNS - STEP 4: Does the patient need physical assistance - for example lifting or trunk support from one helper - wi th the helper providing less than half of the effort? Yes. 1. [id number] ADMISSION PERFORMANCE: Partial/moderate assistance CODE: 03 INDICATE THE TYPE OF WHEELCHAIR/SCOOTER USED: RR1. INDICATE THE TYPE OF WHEELCHAIR/SCOOTER USED.: Motorized CODE: 2 WHEEL 150 FEET: WHEEL 150 FEET - STEP 1: Does the patient complete the activity by him/herself with no assistance (physical, verbal/nonverbal cueing, setup/clean-up)? No. WHEEL 150 FEET - STEP 2: Does the patient need only setup/clean-up assistance from one helper? No. WHEEL 150 FEET - STEP 3: Does the patient need only verbal/nonverbal cueing or touching/steadying/contact guard assistance fro m one helper? No. WHEEL 150 FEET - STEP 4: Does the patient need physical assistance - for example lifting or trunk support from one helper - wi th the helper providing less than half of the effort? No. WHEEL 150 FEET - STEP 5: Does the patient need physical assistance - for example lifting or trunk support from one helper - wi th the helper providing more than half of the effort? Yes. 1. [id number] ADMISSION PERFORMANCE: Substantial/maximal assistance CODE: 02 INDICATE THE TYPE OF WHEELCHAIR/SCOOTER USED: SS1. INDICATE THE TYPE OF WHEELCHAIR/SCOOTER USED.: Manual CODE: 1 BLADDER AND BOWEL: H350. BLADDER CONTINENCE (3-DAY ASSESSMENT PERIOD): Incontinent daily (at least once a day) CODE: 3 H400. BOWEL CONTINENCE (3-DAY ASSESSMENT PERIOD): Frequently incontinent (2 or more episodes of bowel incontinence, but at least one continent bowel mo vement) CODE: 2 SIGNATURE PANEL: The following modified sections: 1. [id number] Admission Performance, 1. UL9555A Admission Performance, 1. [id number] Admission Performance, 1. GC4535D Admission Performance, 1. DO7709E Admission Performance, 1. [id number] Admission Performance, 1. UM7492w Admission Performance, 1. ML2589i Admission Performance , 1. NW4817v Admission Performance, 1. EX2979h Admission Performance, 1. HL7912f Admission Performanc e, 1. ZU7135y Admission Performance, 1. QB1525Z Admission Performance, 1. DT2580C Admission Performan ce, 1. RQ2592U Admission Performance, 1. HG6560R Admission Performance, 1. UE8727C Admission Performa nce, 1. BG6235Q Admission Performance, Q1. Does the patient use a wheelchair/scooter?, 1. [id number] Adm ission Performance, RR1. Indicate the type of wheelchair/scooter used., 1. [id number] Admission Performa nce, Code, SS1. Indicate the type of wheelchair/scooter used., H350. Bladder Continence (3-day assess ment period), H400. Bowel Continence (3-day assessment period), 1. [id number] Admission Performance were [electronically] signed by Dara Fritz C.N.A. on SunJan 21 2019 14:17:01 T-0600 ([facility] [address] [facility] Time)
--- NOTE | 2019-01-22 00:30 | PN ---
Date of Progress Note: 01/21/2019 Subjective: Patient was seen this morning for followup. He was lying in bed, not in distress. No n ew complaints or problems reported. Objective: Vital Signs: Reviewed. HEENT: Unremarkable. Lungs: Clear to auscultation. No rhonchi. No rales. Heart: Sounds normal. Abdomen: Soft. Bowel sounds normal. No guarding, rigidity, tenderness. Abdomen is distended with ascites. Extremities: Trace leg edema. Impression: 1.Cirrhosis of liver with ascites. 2.Acute kidney injury. 3.Rule out pneumonia. Plan: We will discontinue spironolactone at this point, as of yesterday evening I did stop it and wi ll monitor another blood work tomorrow. Considering increasing renal function as well as increasing ascites problem. We will go ahead and plan to do a paracentesis tomorrow. Continue antibiotic Zithr omax as started yesterday and other medications per order. I will see him tomorrow for followup. Chris chaudhry's abdominal girth at the maximum point today was 112 cm, so we will use that as a guideline on an outpatient basis for paracentesis. KAITLYNN/MODL Voice ID: [id number] Report ID: [id number]
[2019-01-22] MEDS: LACTULOSE 20 GM/30 ML UCUP PO SCH ×7 (01:00→20:33)
[2019-01-22 06:14] LABS: Protime INR 1.11
[2019-01-22 06:25] LABS: Potassium 4.2 mmol/L (3.5-5.1)
[2019-01-22 06:27] LABS: Absolute Lymphocytes (CBC) 1.8 K/uL (0.7-4.9); Basophils % 0.4 % (0-1.3); Hematocrit 32.5 % (39.6-49.0); Lymphocytes % 21.9 % (15.3-44.8); MPV 9.1 fL (7.6-11.3); RBC Red Blood Cell Count 3.69 M/uL (4.33-5.43)
[2019-01-22] MEDS: PANTOPRAZOLE 40MG TABLET PO SCH (06:30)
[2019-01-22] MEDS: INSULIN -REGULAR HUMAN 50 UNIT/0.5 ML ML SQ SCH ×4 (07:30→20:02)
[2019-01-22] MEDS: Rifaximin 550 MG Tab PO SCH ×3 (08:00→19:30)
[2019-01-22] MEDS: MAGNESIUM OXIDE 400 MG TAB PO SCH ×2 (08:00→14:09)
[2019-01-22] MEDS: INSULIN GLARGINE 100 UNITS/ML SQ SCH (08:00)
[2019-01-22] MEDS: GLUCERNA SHAKE 237 ML CAN PO SCH ×2 (08:00→19:31)
[2019-01-22] MEDS: CYANOCOBALAMIN 1,000 MCG TAB PO SCH ×2 (08:00→14:10)
[2019-01-22] MEDS: AZITHROMYCIN 250 MG TAB PO SCH ×2 (08:00→14:10)
[2019-01-22] MEDS: allopurinoL 300 MG TAB PO SCH ×2 (08:00→14:10)
[2019-01-22] MEDS: PROMOD 30 ML DOSE PO SCH ×2 (08:00→19:31)
[2019-01-22] MEDS: ASPIRIN EC 81 MG TAB PO SCH ×2 (08:00→14:13)
[2019-01-22] MEDS: FINASTERIDE 5 MG TAB PO SCH ×2 (08:00→14:10)
[2019-01-22] MEDS: FUROSEMIDE 20 MG TABLET PO SCH (08:00)
[2019-01-22] MEDS: ENSURE PUDDING 4 OZ CUP PO SCH ×2 (08:18→13:58)
--- NOTE | 2019-01-22 11:15 | RAD REPORT ---
EXAM DESCRIPTION: US - Paracentesis Proc Guidance - 01/22/2019 9:43 am CLINICAL HISTORY: Liver disease with ascites FINDINGS: The risks, benefits and alternatives to the procedure were explained to the patient and in formed consent obtained. The skin and subcutaneous tissues were anesthetized with Lidocaine. Under sonographic guidance an 8 F rench catheter was placed into the right lower quadrant. 9.5 liters of yellow fluid was removed The patient experienced no immediate complication. IMPRESSION: Paracentesis
[2019-01-22] MEDS: ONDANSETRON 4 MG (ODT) TAB PO PRN (12:20)
[2019-01-23] MEDS: LACTULOSE 20 GM/30 ML UCUP PO SCH ×6 (00:12→19:56)
--- NOTE | 2019-01-23 01:21 | PN ---
Date of Progress Note: 01/22/2019 History: The patient was seen this morning for followup. He was sitting in wheelchair. was pr esent with him at bedside. This morning the patient's reported that he has started to have a li ttle bit difficulty swallowing and little bit pain with swallowing, which is not as bad as before, bu t in last 24 hours now he has started to have this problem. Objective: Vital Signs: Reviewed. HEENT: Unremarkable. Lungs: Clear to auscultation. Heart: Heart sounds normal. Abdomen: Soft, bowel sounds normal. No guarding, rigidity, no tenderness. Patient does have disten ded abdomen with ascites. Extremities: Trace leg edema. Laboratory Data: White count 8.1, hemoglobin 10.9, platelets 207. Sodium 135, potassium 4.2, chlori de 104, bicarb 24, BUN 53, creatinine 1.74, glucose 206. Impression: 1.Cirrhosis of liver with ascites. 2.Acute kidney injury. 3.Dysphagia. 4.Odynophagia. 5.Gastroesophageal reflux disease. Plan: Patient has received 10 days of Diflucan. Currently he is on Protonix. We will continue that . The patient will have paracentesis today and we will repeat blood work tomorrow. Consultation was requested from support specialist, Dr. Patrick and I did discuss details with him and he will plan to do EGD either tomorrow or day after tomorrow. KAITLYNN/MODL Voice ID: [id number] Report ID: [id number]
[2019-01-23] MEDS: PANTOPRAZOLE 40MG TABLET PO SCH (06:30)
[2019-01-23 06:43] LABS: Absolute Lymphocytes (CBC) 1.9 K/uL (0.7-4.9); Hematocrit 34.2 % (39.6-49.0); Lymphocytes % 28.3 % (15.3-44.8); MPV 9.1 fL (7.6-11.3); RBC Red Blood Cell Count 3.92 M/uL (4.33-5.43)
[2019-01-23 07:04] LABS: Magnesium 2.3 mg/dL (1.8-2.4); Potassium 4.3 mmol/L (3.5-5.1); Prealbumin 8.7 mg/dL (20-40)
[2019-01-23] MEDS: INSULIN -REGULAR HUMAN 50 UNIT/0.5 ML ML SQ SCH ×4 (07:27→19:56)
[2019-01-23] MEDS: PROMOD 30 ML DOSE PO SCH ×2 (08:00→19:54)
[2019-01-23] MEDS: FINASTERIDE 5 MG TAB PO SCH (08:00)
[2019-01-23] MEDS: FUROSEMIDE 20 MG TABLET PO SCH (08:00)
[2019-01-23] MEDS: ASPIRIN EC 81 MG TAB PO SCH (08:00)
[2019-01-23] MEDS: GLUCERNA SHAKE 237 ML CAN PO SCH ×2 (08:00→19:55)
[2019-01-23] MEDS: allopurinoL 300 MG TAB PO SCH (08:00)
[2019-01-23] MEDS: CYANOCOBALAMIN 1,000 MCG TAB PO SCH (08:00)
[2019-01-23] MEDS: AZITHROMYCIN 250 MG TAB PO SCH (08:00)
[2019-01-23] MEDS: MAGNESIUM OXIDE 400 MG TAB PO SCH (08:00)
[2019-01-23] MEDS: INSULIN GLARGINE 100 UNITS/ML SQ SCH (08:00)
[2019-01-23] MEDS: Rifaximin 550 MG Tab PO SCH ×2 (08:00→20:02)
[2019-01-23] MEDS: ENSURE PUDDING 4 OZ CUP PO SCH ×2 (09:00→12:54)
[2019-01-23] MEDS: D5 0.45 NS 1,000 ML IV SCH ×2 (11:45→19:47)
[2019-01-23] MEDS ORDERED: PROPOFOL 200 MG/20 ML VIAL IV ONE (17:46)
[2019-01-23] MEDS ORDERED: LIDOCAINE 1% MPF 5 ML VIAL ONE (17:46)
[2019-01-23] MEDS ORDERED: GOLYTELY 4000 ML PO SCH (18:37)
[2019-01-23] MEDS ORDERED: MAGNESIUM CITRATE 300 ML BOT PO SCH (18:37)
[2019-01-23 18:51] VITALS: O2SAT 99
--- NOTE | 2019-01-23 19:07 | R.PN ---
ENCOUNTER DATE AND TIME: 01/23/2019 19:02 (TRAIN DRIVER) NAME MAURY CRUZ DATE OF : 1935 DATE OF ADMISSION: 01/13/2019 17:07 (TRAIN DRIVER) Liver CirrhosisCHIEF COMPLAINT: Debility SUBJECTIVE: Pt denied any depression. Pt denied any Shortness of Breath. He is doing much better today with ammonia down to the 20s. He is more alert and participates well w [facility] physical therapy. Hgb 11.4, WBC 6.7, Glucose 175 to 221, prealbumin 8.7. He is on hemocyte plus and promod. Ambulated 600' with standby assistance using a rolling walker. Up and down 15 steps with standby assi stance. KUB and chest X-ray show no obstruction and emphysematous pattern and possible viral pneumoni tis or bronchitis. Ambulated 250 feet and 500 feet with standby assistance using a rolling walker. VITAL SIGNS Temperature: 98.0 F SBP/DBP: 109/72 Pulse: 72 Resp: 16 MEDICATION ALLERGIES: Penicillin ENVIRONMENTAL ALLERGIES: None Known - Substance Allergies None Known - Other Allergies None Known NURSING: - Shower allowing shower - Lab Results blood Sugar Check ACHS ACTIVITIES OOB only with supervision THERAPIES: - Dietary and Nutrition Adequate Nutrition. Nutritional Education. Nutritional Supplements. PHYSICAL EXAM - Gen Alert and awake Lying in bed No apparent distress Oriented to: person, time, and place - Skin No skin breakdown. No abnormalities - Eyes No abnormalities - ENMT No abnormalities - Neck No abnormalities - CVS RRR - Chest No abnormalities - Resp Clear to auscultation - Abd Distended - GI + bowel sounds Deferred - No abnormalities - Ext Mild bilateral lower extremity edema. - MSK 4+/5 weakness in both lower extremities. - Neuro 4/5 strength bilaterally upper and lower extremities. - Psych No abnormalities ASSESSMENT: Pt. is a 83 yo Right-handed white male.On 01/09/2019 he was admitted to [facility] with diagnosis Liver Cirrhosis.His impairment category is Debility 16 - Debility (16).Pre-morbid ly, Pt. was independent/mod-I in Locomotion, Safety Awareness, Balance, Social Cognition, Transfers C ontrol, Self-Care, Endurance, Sphincter Control, and Communication; and he had good Locomotion, Darlin ce, Safety Awareness, Social Cognition, Transfers Control, Sphincter Control, Self-Care, Communicatio n, and Endurance.Currently, he has deficits of Locomotion, Balance, Safety Awareness, Social Cognitio n, Transfers Control, Sphincter Control, Self-Care, and Communication.Pt. is now referred to [facility] for acute in-patient rehabilitation in order to maximize patient's function al independence in activities of daily living, strength, ROM, and mobility.- Rehab Goal Patient has realistic goal of being discharged at assistance level 6-Layo to reside at Home with Fam denise/Relatives. MDM/PLAN: - Physical Therapy Gait dysfunction - to improve, our physical therapists will perform initial evaluation of pt's statu s upon admission and devise an individualized program for Gait Training, and Wheel Chair mobility Inability to transfer - to improve, our physical therapists will perform initial evaluation of pt's status upon admission and devise an individualized program for Bed mobility Need for home safety evaluation - to improve, our physical therapists will perform initial evaluatio n of pt's status upon admission and devise an individualized program for Home Evaluation Need in caregiver upon discharge - to improve, our physical therapists will perform initial evaluati on of pt's status upon admission and devise an individualized program for Caregiver Training Edema - to improve, our physical therapists will perform initial evaluation of pt's status upon admi ssion and devise an individualized program for Elevation Training, and Lymphedema Therapy New precaution - to improve, our physical therapists will perform initial evaluation of pt's status upon admission and devise an individualized program for Patient precaution education Poor balance - to improve, our physical therapists will perform initial evaluation of pt's status up on admission and devise an individualized program for Balance Training Weakness - to improve, our physical therapists will perform initial evaluation of pt's status upon a dmission and devise an individualized program for Aquatic Therapy, Neuromuscular Reeducation, and Str engthening Achieving independence - to improve, our physical therapists will perform initial evaluation of pt's status upon admission and devise an individualized program for Community Reintegration Activities - Occupational Therapy ADL deficits - to improve, our occupation therapists will perform initial evaluation of pt's status upon admission and devise an individualized program for Bathing, Bed mobility, Community Reintegratio n, Cooking, Dressing, Eating, Fine Motor Skills, Grooming, Homemaking, Kitchen Mobility, Laundry, Pat ient Education, Safety Awareness, Splinting - Positioning, Transfers(Toilet, Tub, Shower), and Wheel Chair Management Cognitive deficits - to improve, our occupation therapists will perform initial evaluation of pt's s tatus upon admission and devise an individualized program for Cognition - orientation Need for home care nurse - to improve, our occupation therapists will perform initial evaluation of pt's status upon admission and devise an individualized program for Caregiver Training Weakness - to improve, our occupation therapists will perform initial evaluation of pt's status upon admission and devise an individualized program for Aquatic Therapy, Balance, Endurance, UE ROM, and UE strengthening - Other See attached MAR (Medication Administration Record) - N/A Medical management by Dr. Andres. - Diet Type Continue Regular - Diet - Liquid Texture Continue Regular - Tube Feed Continue N/A - Lab Results blood Sugar Check ACHS - Diet - Solid Texture Continue Regular - Shower allowing shower FUNCTIONAL STATUS: UPDATED AT WEEKLY TEAM CONFERENCE - Bladder Same accident frequency: 7-Ind - No accidents in the past 7 days - Bowel Same accident frequency: 7-Ind - No accidents in the past 7 days - Walking Same score based on distance walked: 0(N/A) Same score based on distance walked: 2(50-149ft) - Wheelchair Same score based on distance traveled: 0(N/A) Same score based on distance traveled: 2(50-149ft) FUNCTIONAL STATUS: - Self-Care A. Eating Ind B. Grooming Layo C. Bathing Ernst D. Dressing - Upper Ernst E. Dressing - Lower modA F. Toileting sup - Sphincter Control G. Bladder control Ernst H. Bowel control Ernst - Transfers Control I. Bed/Chair/Wheelchair Ernst J. Toilet Ernst K. Tub/Shower modA - Locomotion L. Walk/Wheelchair (B) Ernst M. Stairs Dep - Communication N. Comprehension (B) Layo O. Expression (B) Layo - Social Cognition P. Social Interaction Layo Q. Problem Solving Layo R. Memory sup - Endurance Good - Balance Good - Safety Awareness Good QI SCORES: - Self-Care A. Eating 05-Setup or clean-up assistance B. Oral hygiene 05-Setup or clean-up assistance C. Toileting hygiene 05-Setup or clean-up assistance E. Shower/bathe self 05-Setup or clean-up assistance F. Upper body dressing 04-Supervision or touching assistance G. Lower body dressing 04-Supervision or touching assistance H. Putting on/taking off footwear 03-Partial/moderate assistance - Mobility A. Roll left and right 04-Supervision or touching assistance B. Sit to lying 03-Partial/moderate assistance C. Lying to sitting on side of bed 03-Partial/moderate assistance D. Sit to stand 03-Partial/moderate assistance E. Chair/tkq-ym-[id number] transfer 03-Partial/moderate assistance F. Toilet transfer 03-Partial/moderate assistance G. Car transfer 88-Not attempted due to medical condition or safety concerns I. Walk 10 feet 04-Supervision or touching assistance J. Walk 50 feet with two turns 04-Supervision or touching assistance K. Walk 150 feet 88-Not attempted due to medical condition or safety concerns L. Walking 10 feet on uneven surfaces 88-Not attempted due to medical condition or safety concerns M. 1 step (curb) 88-Not attempted due to medical condition or safety concerns N. 4 steps 88-Not attempted due to medical condition or safety concerns O. 12 steps 88-Not attempted due to medical condition or safety concerns P. Picking up object 88-Not attempted due to medical condition or safety concerns R. Wheel 50 feet with two turns 02-Substantial/maximal assistance S. Wheel 150 feet 02-Substantial/maximal assistance - Bladder and Bowel Bladder continence 0-Always continent Bowel continence 0-Always continent - Endurance Fair - Balance Fair - Safety Awareness Fair [facility] DEFIC[facility]: Self-Care, Mobility, Endurance, Balance, and Safety Awareness SIGNATURE PANEL: (TRAIN DRIVER)
[2019-01-23] MEDS: METOCLOPRAMIDE 10 MG/2mL INJ IV SCH (19:47)
[2019-01-24] MEDS: LACTULOSE 20 GM/30 ML UCUP PO SCH ×6 (01:00→20:36)
--- NOTE | 2019-01-24 01:01 | PN ---
Date of Progress Note: 01/23/2019 Subjective: Patient was seen this morning for followup. Patient was lying in bed, not in distress. was present with him at bedside. Yesterday, he had paracentesis done and sometime later in the day while he was sitting in the chair, he had near syncopal type of episode and this was likely due to low blood pressure as nursing staff immediately put him in the bed in supine position and he recov ered immediately. Objective: Vital Signs: Reviewed this morning. Denies any new complaints. HEENT: Unremarkable. Lungs: Clear to auscultation. Heart: Sounds normal. Abdomen: Soft. Bowel sounds normal. No guarding, rigidity. No tenderness. Distended abdomen that he had prior to paracenteses has improved. Extremities: No leg edema. Laboratory Data: Sodium 136, potassium 4.3, chloride 103, bicarb 27, BUN 53, creatinine 1.40, glucos e 182, magnesium 2.3. Impression: 1.Cirrhosis of liver with ascites. 2.Acute kidney injury. 3.Diabetes mellitus. Plan: We will continue current medication including current insulin and continue Protonix. The ratna ent probably will have EGD done today per Dr. Patrick and I will see him tomorrow for followup. Roxann lorenz's is concerned about taking him home. He is scheduled to go home on January 25 and she is co ncerned about the help that he will need at home and I have advised her that she needs to communicate with Social Service regarding discharge planning and options. Those options discussed with her incl uding going home with home health care and private caregiver services. Other option to take him to [facility] and will communicate with Social Service to get some assistance. KAITLYNN/MODL Voice ID: [id number] Report ID: [id number]
[2019-01-24] MEDS: METOCLOPRAMIDE 10 MG/2mL INJ IV SCH ×2 (01:02→06:33)
[2019-01-24] MEDS: PANTOPRAZOLE 40MG TABLET PO SCH (06:17)
[2019-01-24] MEDS: INSULIN GLARGINE 100 UNITS/ML SQ SCH ×2 (06:52→10:43)
[2019-01-24] MEDS: INSULIN -REGULAR HUMAN 50 UNIT/0.5 ML ML SQ SCH ×4 (06:52→20:28)
[2019-01-24] MEDS: FUROSEMIDE 20 MG TABLET PO SCH ×2 (08:00→10:11)
[2019-01-24] MEDS: MAGNESIUM OXIDE 400 MG TAB PO SCH ×2 (08:00→10:10)
[2019-01-24] MEDS: PROMOD 30 ML DOSE PO SCH ×3 (08:00→20:36)
[2019-01-24] MEDS: Rifaximin 550 MG Tab PO SCH ×3 (08:00→20:36)
[2019-01-24] MEDS: GLUCERNA SHAKE 237 ML CAN PO SCH ×3 (08:00→20:37)
[2019-01-24] MEDS: ASPIRIN EC 81 MG TAB PO SCH ×2 (08:00→10:12)
[2019-01-24] MEDS: AZITHROMYCIN 250 MG TAB PO SCH (08:00)
[2019-01-24] MEDS: allopurinoL 300 MG TAB PO SCH ×2 (08:00→10:12)
[2019-01-24] MEDS: CYANOCOBALAMIN 1,000 MCG TAB PO SCH ×2 (08:00→10:10)
[2019-01-24] MEDS: FINASTERIDE 5 MG TAB PO SCH ×2 (08:00→10:11)
[2019-01-24] MEDS: ENSURE PUDDING 4 OZ CUP PO SCH ×3 (09:00→13:53)
--- NOTE | 2019-01-24 09:55 | P.RH.PN ---
Estimated Length of Stay: 13 Expected Discharge Date: 01/25/19 Discharge Disposition Plan: Home Family Support: Yes Long-Term Goal: Mobility, Transfers, Self Care Vital Signs: Last Vital Signs Temp 97.2 F 01/24/19 05:01 Pulse 80 01/24/19 05:01 Resp 15 01/24/19 05:01 BP 95/58 L 01/24/19 05:01 Pulse Ox 97 01/24/19 05:01 Laboratory: Laboratory Last Values WBC 6.7 K/uL (4.3-10.9) D 01/23/19 06:26 RBC 3.92 M/uL (4.33-5.43) L 01/23/19 06:26 Hgb 11.4 g/dL (13.6-17.9) L 01/23/19 06:26 Hct 34.2 % (39.6-49.0) L 01/23/19 06:26 MCV 87.2 fL (80-100) 01/23/19 06:26 MCH 29.1 pg (27.0-35.0) 01/23/19 06:26 MCHC 33.4 g/dL (32.0-36.0) 01/23/19 06:26 RDW 19.4 % (12.1-15.2) H 01/23/19 06:26 Plt Count 205 K/uL (152-406) 01/23/19 06:26 MPV 9.1 fL (7.6-11.3) 01/23/19 06:26 Plt Distribution Width Cancelled 01/19/19 05:00 Absolute Nucleated RBC Cancelled 01/19/19 05:00 Neutrophils % 57.2 % (41.7-73.7) 01/23/19 06:26 Lymphocytes % 28.3 % (15.3-44.8) 01/23/19 06:26 Monocytes % 11.2 % (3.3-12.3) 01/23/19 06:26 Eosinophils % 2.3 % (0-4.4) 01/23/19 06:26 Basophils % 1.0 % (0-1.3) 01/23/19 06:26 Nucleated RBC % Cancelled 01/19/19 05:00 Absolute Neutrophils 3.8 K/uL (1.8-8.0) 01/23/19 06:26 Absolute Lymphocytes 1.9 K/uL (0.7-4.9) 01/23/19 06:26 Absolute Monocytes 0.8 K/uL (0.1-1.3) 01/23/19 06:26 Absolute Eosinophils 0.2 K/uL (0-0.5) 01/23/19 06:26 Absolute Basophils 0.1 K/uL (0-0.5) 01/23/19 06:26 Diff Path Review Cancelled 01/19/19 05:00 PT 13.1 SECONDS (9.5-12.5) H 01/22/19 05:50 INR 1.11 01/22/19 05:50 APTT 28.5 SECONDS (24.3-36.9) 01/22/19 05:50 Sodium 136 mmol/L (136-145) 01/23/19 06:26 Potassium 4.3 mmol/L (3.5-5.1) 01/23/19 06:26 Chloride 103 mmol/L (98-107) 01/23/19 06:26 Carbon Dioxide 27 mmol/L (21-32) 01/23/19 06:26 BUN 53 mg/dL (7-18) H 01/23/19 06:26 Creatinine 1.40 mg/dL (0.55-1.3) H 01/23/19 06:26 Estimated GFR 49 mL/min (=/>90) L 01/23/19 06:26 Glucose 182 mg/dL (74-106) H 01/23/19 06:26 POC Glucose 256 mg/dl (65-120) H 01/24/19 06:45 Calcium 9.4 mg/dL (8.5-10.1) 01/23/19 06:26 Magnesium 2.3 mg/dL (1.8-2.4) 01/23/19 06:26 Total Bilirubin 0.5 mg/dL (0.2-1.0) 01/20/19 16:50 Direct Bilirubin 0.3 mg/dL (0-0.2) H 01/20/19 16:50 AST 33 U/L (15-37) 01/20/19 16:50 ALT 31 U/L (12-78) 01/20/19 16:50 Alkaline Phosphatase 177 U/L (45-117) H 01/20/19 16:50 Ammonia 91 umol/L (19-54) H D 01/24/19 06:24 Serum Total Protein 6.0 g/dL (6.4-8.2) L 01/20/19 16:50 Albumin 2.0 g/dL (3.4-5.0) L 01/23/19 06:26 Globulin 4.0 g/dL (2.3-3.5) H 01/20/19 16:50 Albumin/Globulin Ratio 0.5 (1.1-1.8) L 01/20/19 16:50 Prealbumin 8.7 mg/dL (20-40) L 01/23/19 06:26 Weight: 175 lb Wound Present: Yes Closed Surgical Incision Present: No Negative Pressure Wound Therapy Present: No Physician Update: He has marked dysphagia and wasting for the last 7 months. He had an upper GI and has been NPO and he has gotten much weaker over the last 3 days. Will D/C any further GI workup and restart feeding. GI work up will be done outpatient. Medical Issues: Patient is incontinent daily with bladder and frequently incontinent with bowel. Patient had a paracentesis last 01/22 and they removed 9.5L of fluid Comment: S/P paracentesis 01/09/10 - 9 liters output Functional Improvement: pt presents with moderate genrealized weakness. pt exhibits poor balance and stability during ambulation and functional transfers. pt demonstrates significant lethargy and fatigue. pt experiences poor tolerance to functional activity due to fatigue and weakness. Skilled PT services are necessary to address the above mentioned impairments and functional limitations. Summary: Patient's care plan and half-way goals have been reviewed and revised as necessary. Please see the Rehabilitation Signature page for all necessary signatures.
[2019-01-24] MEDS ORDERED: FORMULATION-R RECTAL 30GM PR PRN (12:25)
--- NOTE | 2019-01-24 18:11 | PN ---
Date of Progress Note: 01/24/2019 Subjective: The patient was seen this morning for followup. He was lying in bed, not in distress, had an EGD done late yesterday evening. I did not see any EGD result in computer but says he has lot of irritation in the esophagus as per Dr. Patrick's information that she talked to him after the procedure. Objective: Vital signs: Reviewed. HEENT: Unremarkable. Lungs: Clear to auscultation. Heart: Sounds normal. Abdomen: Soft. Bowel sounds normal. No guarding, rigidity, tenderness, or distention. Extremities: No leg edema. Impression: 1. Cirrhosis of liver with ascites. 2. Hepatic encephalopathy, resolved. 3. Generalized weakness. 4. Debility. 5. Diabetes mellitus. Plan: Fingerstick blood sugar readings reviewed and we will increase his insulin dose from 15 units to 20 units daily in the morning. Continue other current medical management. Continue physical therapy under guidance of Dr. Butler. I will see him tomorrow for followup. The patient's has decided to take him to [facility] for short-term stay upon discharge and I have encouraged her to communicate with social service on rehab floor to help make arrangements for that as the patient is expected to get discharged in the beginning of the next week. KAITLYNN/YAELL Voice ID: [id number] Report ID: [id number] MTDD
[2019-01-25] MEDS: LACTULOSE 20 GM/30 ML UCUP PO SCH ×6 (01:00→20:27)
--- NOTE | 2019-01-25 02:34 | FAST ---
SHIFT START DATE/TIME: 01/24/2019 19:00 (SAMPLE ROOM SUPERVISOR) SHIFT END DATE/TIME: 01/25/2019 07:00 (SAMPLE ROOM SUPERVISOR) NAME MAURY CRUZ DATE OF : 1935 DATE OF ADMISSION: 01/13/2019 17:07 (SAMPLE ROOM SUPERVISOR) PHONE: AGE: 83 SSN# [id number] GENDER: Male ENCOUNTER PHYSICIAN: Dr. Alexy Butler M.D. ADMISSION DIAGNOSIS: - Debility 16 - Debility (16) Liver Cirrhosis. EATING: Not assessed/no information CODE: - ORAL HYGIENE: Not assessed/no information CODE: - TOILETING HYGIENE: TOILETING HYGIENE - STEP 1: Does the patient complete the activity by him/herself with no assistance (physical, verbal/nonverbal cueing, setup/clean-up)? No. TOILETING HYGIENE - STEP 2: Does the patient need only setup/clean-up assistance from one helper? No. TOILETING HYGIENE - STEP 3: Does the patient need only verbal/nonverbal cueing or touching/steadying/contact guard assistance fro m one helper? No. TOILETING HYGIENE - STEP 4: Does the patient need physical assistance - for example lifting or trunk support from one helper - wi th the helper providing less than half of the effort? No. TOILETING HYGIENE - STEP 5: Does the patient need physical assistance - for example lifting or trunk support from one helper - wi th the helper providing more than half of the effort? Yes. 1. [id number] ADMISSION PERFORMANCE: Substantial/maximal assistance CODE: 02 BATHING: Not assessed/no information CODE: - DRESSING - UPPER BODY: Not assessed/no information CODE: - DRESSING - LOWER BODY: Not assessed/no information CODE: - PUTTING ON/TAKING OFF FOOTWEAR: Not assessed/no information CODE: - TRANSFERS: CAR: Not assessed/no information CODE: - WALK 10 FEET: Not assessed/no information CODE: - 1 STEP (CURB): Not assessed/no information CODE: - PICKING UP OBJECT: Not assessed/no information CODE: - DOES THE PATIENT USE A WHEELCHAIR/SCOOTER? CODE: EXPR WHEEL 50 FEET WITH TWO TURNS: Not assessed/no information CODE: - INDICATE THE TYPE OF WHEELCHAIR/SCOOTER USED: CODE: EXPR WHEEL 150 FEET: Not assessed/no information CODE: - INDICATE THE TYPE OF WHEELCHAIR/SCOOTER USED: CODE: EXPR BLADDER AND BOWEL: H350. BLADDER CONTINENCE (3-DAY ASSESSMENT PERIOD): Incontinent daily (at least once a day) CODE: 3 H400. BOWEL CONTINENCE (3-DAY ASSESSMENT PERIOD): Frequently incontinent (2 or more episodes of bowel incontinence, but at least one continent bowel mo vement) CODE: 2
[2019-01-25 05:54] VITALS: BMI 19.6
[2019-01-25] MEDS: PANTOPRAZOLE 40MG TABLET PO SCH (06:59)
[2019-01-25] MEDS: INSULIN -REGULAR HUMAN 50 UNIT/0.5 ML ML SQ SCH ×4 (07:30→21:00)
[2019-01-25] MEDS: INSULIN GLARGINE 100 UNITS/ML SQ SCH (08:43)
[2019-01-25] MEDS: FUROSEMIDE 20 MG TABLET PO SCH (08:44)
[2019-01-25] MEDS: allopurinoL 300 MG TAB PO SCH (08:44)
[2019-01-25] MEDS: CYANOCOBALAMIN 1,000 MCG TAB PO SCH (08:44)
[2019-01-25] MEDS: ASPIRIN EC 81 MG TAB PO SCH (08:45)
[2019-01-25] MEDS: MAGNESIUM OXIDE 400 MG TAB PO SCH (08:45)
[2019-01-25] MEDS: FINASTERIDE 5 MG TAB PO SCH (08:45)
[2019-01-25] MEDS: ENSURE PUDDING 4 OZ CUP PO SCH ×2 (08:47→13:39)
[2019-01-25] MEDS: PROMOD 30 ML DOSE PO SCH ×2 (08:47→20:02)
[2019-01-25] MEDS: GLUCERNA SHAKE 237 ML CAN PO SCH ×2 (08:47→20:02)
[2019-01-25] MEDS: Rifaximin 550 MG Tab PO SCH ×2 (08:48→20:04)
[2019-01-25] MEDS ORDERED: guaiFENesin 100 MG/5 ML UCUP PO PRN (15:11)
--- NOTE | 2019-01-25 16:42 | FAST ---
SHIFT START DATE/TIME: 01/25/2019 07:00 (DIGITAL ART DIRECTOR) SHIFT END DATE/TIME: 01/25/2019 19:00 (DIGITAL ART DIRECTOR) NAME MAURY CRUZ DATE OF : 1935 DATE OF ADMISSION: 01/13/2019 17:07 (DIGITAL ART DIRECTOR) PHONE: AGE: 83 SSN# [id number] GENDER: Male ENCOUNTER PHYSICIAN: Dr. Alexy Butlre M.D. ADMISSION DIAGNOSIS: - Debility 16 - Debility (16) Liver Cirrhosis. EATING: EATING - STEP 1: Does the patient complete the activity by him/herself with no assistance (physical, verbal/nonverbal cueing, setup/clean-up)? No. EATING - STEP 2: Does the patient need only setup/clean-up assistance from one helper? No. EATING - STEP 3: Does the patient need only verbal/nonverbal cueing or touching/steadying/contact guard assistance fro m one helper? Yes. 1. [id number] ADMISSION PERFORMANCE: Supervision or touching assistance CODE: 04 ORAL HYGIENE: ORAL HYGIENE - STEP 1: Does the patient complete the activity by him/herself with no assistance (physical, verbal/nonverbal cueing, setup/clean-up)? No. ORAL HYGIENE - STEP 2: Does the patient need only setup/clean-up assistance from one helper? No. ORAL HYGIENE - STEP 3: Does the patient need only verbal/nonverbal cueing or touching/steadying/contact guard assistance fro m one helper? No. ORAL HYGIENE - STEP 4: Does the patient need physical assistance - for example lifting or trunk support from one helper - wi th the helper providing less than half of the effort? No. ORAL HYGIENE - STEP 5: Does the patient need physical assistance - for example lifting or trunk support from one helper - wi th the helper providing more than half of the effort? No. ORAL HYGIENE - STEP 6: Does the helper provide all of the effort? OR Is the assistance of two or more helpers required to co mplete the activity? Yes. 1. [id number] ADMISSION PERFORMANCE: Dependent CODE: 01 TOILETING HYGIENE: TOILETING HYGIENE - STEP 1: Does the patient complete the activity by him/herself with no assistance (physical, verbal/nonverbal cueing, setup/clean-up)? No. TOILETING HYGIENE - STEP 2: Does the patient need only setup/clean-up assistance from one helper? No. TOILETING HYGIENE - STEP 3: Does the patient need only verbal/nonverbal cueing or touching/steadying/contact guard assistance fro m one helper? No. TOILETING HYGIENE - STEP 4: Does the patient need physical assistance - for example lifting or trunk support from one helper - wi th the helper providing less than half of the effort? No. TOILETING HYGIENE - STEP 5: Does the patient need physical assistance - for example lifting or trunk support from one helper - wi th the helper providing more than half of the effort? Yes. 1. [id number] ADMISSION PERFORMANCE: Substantial/maximal assistance CODE: 02 BATHING: Not assessed/no information CODE: - DRESSING - UPPER BODY: Not attempted due to medical condition or safety concerns CODE: 88 DRESSING - LOWER BODY: Not attempted due to medical condition or safety concerns CODE: 88 PUTTING ON/TAKING OFF FOOTWEAR: Not attempted due to medical condition or safety concerns CODE: 88 ROLL LEFT AND RIGHT: ROLL LEFT AND RIGHT - STEP 1: Does the patient complete the activity by him/herself with no assistance (physical, verbal/nonverbal cueing, setup/clean-up)? No. ROLL LEFT AND RIGHT - STEP 2: Does the patient need only setup/clean-up assistance from one helper? No. ROLL LEFT AND RIGHT - STEP 3: Does the patient need only verbal/nonverbal cueing or touching/steadying/contact guard assistance fro m one helper? No. ROLL LEFT AND RIGHT - STEP 4: Does the patient need physical assistance - for example lifting or trunk support from one helper - wi th the helper providing less than half of the effort? No. ROLL LEFT AND RIGHT - STEP 5: Does the patient need physical assistance - for example lifting or trunk support from one helper - wi th the helper providing more than half of the effort? No. ROLL LEFT AND RIGHT - STEP 6: Does the helper provide all of the effort? OR Is the assistance of two or more helpers required to co mplete the activity? Yes. 1. [id number] ADMISSION PERFORMANCE: Dependent CODE: 01 SIT TO LYING: SIT TO LYING - STEP 1: Does the patient complete the activity by him/herself with no assistance (physical, verbal/nonverbal cueing, setup/clean-up)? No. SIT TO LYING - STEP 2: Does the patient need only setup/clean-up assistance from one helper? No. SIT TO LYING - STEP 3: Does the patient need only verbal/nonverbal cueing or touching/steadying/contact guard assistance fro m one helper? No. SIT TO LYING - STEP 4: Does the patient need physical assistance - for example lifting or trunk support from one helper - wi th the helper providing less than half of the effort? No. SIT TO LYING - STEP 5: Does the patient need physical assistance - for example lifting or trunk support from one helper - wi th the helper providing more than half of the effort? Yes. 1. [id number] ADMISSION PERFORMANCE: Substantial/maximal assistance CODE: 02 LYING TO SITTING: LYING TO SITTING ON SIDE OF BED - STEP 1: Does the patient complete the activity by him/herself with no assistance (physical, verbal/nonverbal cueing, setup/clean-up)? No. LYING TO SITTING ON SIDE OF BED - STEP 2: Does the patient need only setup/clean-up assistance from one helper? No. LYING TO SITTING ON SIDE OF BED - STEP 3: Does the patient need only verbal/nonverbal cueing or touching/steadying/contact guard assistance fro m one helper? No. LYING TO SITTING ON SIDE OF BED - STEP 4: Does the patient need physical assistance - for example lifting or trunk support from one helper - wi th the helper providing less than half of the effort? No. LYING TO SITTING ON SIDE OF BED - STEP 5: Does the patient need physical assistance - for example lifting or trunk support from one helper - wi th the helper providing more than half of the effort? Yes. 1. [id number] ADMISSION PERFORMANCE: Substantial/maximal assistance CODE: 02 SIT TO STAND: SIT TO STAND - STEP 1: Does the patient complete the activity by him/herself with no assistance (physical, verbal/nonverbal cueing, setup/clean-up)? No. SIT TO STAND - STEP 2: Does the patient need only setup/clean-up assistance from one helper? No. SIT TO STAND - STEP 3: Does the patient need only verbal/nonverbal cueing or touching/steadying/contact guard assistance fro m one helper? No. SIT TO STAND - STEP 4: Does the patient need physical assistance - for example lifting or trunk support from one helper - wi th the helper providing less than half of the effort? No. SIT TO STAND - STEP 5: Does the patient need physical assistance - for example lifting or trunk support from one helper - wi th the helper providing more than half of the effort? Yes. 1. [id number] ADMISSION PERFORMANCE: Substantial/maximal assistance CODE: 02 TRANSFERS: BED, CHAIR: CHAIR/[id number] TRANSFER - STEP 1: Does the patient complete the activity by him/herself with no assistance (physical, verbal/nonverbal cueing, setup/clean-up)? No. CHAIR/[id number] TRANSFER - STEP 2: Does the patient need only setup/clean-up assistance from one helper? No. CHAIR/[id number] TRANSFER - STEP 3: Does the patient need only verbal/nonverbal cueing or touching/steadying/contact guard assistance fro m one helper? No. CHAIR/[id number] TRANSFER - STEP 4: Does the patient need physical assistance - for example lifting or trunk support from one helper - wi th the helper providing less than half of the effort? No. CHAIR/[id number] TRANSFER - STEP 5: Does the patient need physical assistance - for example lifting or trunk support from one helper - wi th the helper providing more than half of the effort? Yes. 1. [id number] ADMISSION PERFORMANCE: Substantial/maximal assistance CODE: 02 TRANSFER TOILET: TOILET TRANSFER - STEP 1: Does the patient complete the activity by him/herself with no assistance (physical, verbal/nonverbal cueing, setup/clean-up)? No. TOILET TRANSFER - STEP 2: Does the patient need only setup/clean-up assistance from one helper? No. TOILET TRANSFER - STEP 3: Does the patient need only verbal/nonverbal cueing or touching/steadying/contact guard assistance fro m one helper? No. TOILET TRANSFER - STEP 4: Does the patient need physical assistance - for example lifting or trunk support from one helper - wi th the helper providing less than half of the effort? No. TOILET TRANSFER - STEP 5: Does the patient need physical assistance - for example lifting or trunk support from one helper - wi th the helper providing more than half of the effort? Yes. 1. [id number] ADMISSION PERFORMANCE: Substantial/maximal assistance CODE: 02 TRANSFERS: CAR: Not assessed/no information CODE: - WALK 10 FEET: Not assessed/no information CODE: - 1 STEP (CURB): Not assessed/no information CODE: - PICKING UP OBJECT: Not assessed/no information CODE: - DOES THE PATIENT USE A WHEELCHAIR/SCOOTER? Q1. DOES THE PATIENT USE A WHEELCHAIR/SCOOTER?: No CODE: 0 INDICATE THE TYPE OF WHEELCHAIR/SCOOTER USED: CODE: EXPR INDICATE THE TYPE OF WHEELCHAIR/SCOOTER USED: CODE: EXPR BLADDER AND BOWEL: H350. BLADDER CONTINENCE (3-DAY ASSESSMENT PERIOD): Incontinent less than daily (e.g., once or twice during the 3-day assessment period) CODE: 2 H400. BOWEL CONTINENCE (3-DAY ASSESSMENT PERIOD): Occasionally incontinent (one episode of bowel incontinence) CODE: 1 SIGNATURE PANEL: The following modified sections: 1. [id number] Admission Performance, 1. [id number] Admission Performance, 1. [id number] Admission Performance, 1. [id number] Admission Performance, 1. [id number] Admission Performance, 1. [id number] Admission Performance, 1. EC0965I Admission Performance, 1. UP0656I Admission Performance , 1. [id number] Admission Performance, 1. [id number] Admission Performance, Q1. Does the patient use a whee lchair/scooter?, H350. Bladder Continence (3-day assessment period), H400. Bowel Continence (3-day as sessment period) were [electronically] signed by Dara Fritz C.N.A. on SunJan 25 2019 16:41:10 GMT -0600 (Central Standard Time)
--- NOTE | 2019-01-25 20:06 | P.PN ---
Subjective Date of Service: 01/24/19 Chief Complaint: Dysphagia, wt loss, new ascites, ESLD/cirrhosis Subjective: Worsening (Called by PCP that patient too weak for colonoscopy. Will hold on colonoscopy today.) Review of Systems General: Weakness, Malaise Gastrointestinal: Other (dysphagia) Physical Examination - Vital Signs Temperature: 97.2 F Blood Pressure: 118/72 Pulse: 94 Respirations: 16 Pulse Ox (%): 97 - Physical Exam General: Alert, In no apparent distress, Oriented x3, Cooperative HEENT: Atraumatic, Normocephalic, PERRLA Neck: Supple Respiratory: Normal air movement Cardiovascular: Normal pulses Gastrointestinal: Soft and benign, No tenderness, No rebound, No guarding Neurological: Normal speech Assessment And Plan - Current Problems (Diagnosis) (1) Dysphagia Current Visit: Yes Status: Acute (2) Weight loss, abnormal Current Visit: Yes Status: Acute (3) Ascites Current Visit: Yes Status: Acute (4) Cirrhosis Current Visit: Yes Status: Acute - Plan REC: 1) will hold on colonoscopy until patient stronger with improved pre- albumin... 2) increased po intake / nutritional status 3) physical therapy
--- NOTE | 2019-01-25 20:08 | P.PN ---
Subjective Date of Service: 01/25/19 Chief Complaint: Dysphagia, wt loss, new ascites, ESLD/cirrhosis Subjective: No new changes (Feels weak today but eating more. at bedside, concerned about his lack of activity.) Review of Systems 10-point ROS is otherwise unremarkable General: Weakness, Malaise Physical Examination - Vital Signs Temperature: 97.2 F Blood Pressure: 118/72 Pulse: 94 Respirations: 16 Pulse Ox (%): 97 - Physical Exam General: Alert, In no apparent distress, Oriented x3, Cooperative HEENT: Atraumatic, Normocephalic, PERRLA Neck: Supple Respiratory: Normal air movement Cardiovascular: Normal pulses Gastrointestinal: Soft and benign, No tenderness, No rebound, No guarding Neurological: Normal speech Assessment And Plan - Current Problems (Diagnosis) (1) Dysphagia Current Visit: Yes Status: Acute (2) Weight loss, abnormal Current Visit: Yes Status: Acute (3) Ascites Current Visit: Yes Status: Acute (4) Cirrhosis Current Visit: Yes Status: Acute - Plan REC: 1) will hold on colonoscopy until patient stronger with improved pre- albumin... 2) increased po intake / nutritional status 3) physical therapy
[2019-01-26] MEDS: LACTULOSE 20 GM/30 ML UCUP PO SCH ×6 (01:00→21:00)
[2019-01-26] MEDS: PANTOPRAZOLE 40MG TABLET PO SCH (06:42)
[2019-01-26] MEDS: INSULIN -REGULAR HUMAN 50 UNIT/0.5 ML ML SQ SCH ×4 (07:13→21:00)
[2019-01-26] MEDS: INSULIN GLARGINE 100 UNITS/ML SQ SCH (08:23)
[2019-01-26] MEDS: PROMOD 30 ML DOSE PO SCH ×2 (08:25→19:33)
[2019-01-26] MEDS: GLUCERNA SHAKE 237 ML CAN PO SCH ×2 (08:25→19:33)
[2019-01-26] MEDS: ENSURE PUDDING 4 OZ CUP PO SCH ×2 (08:25→13:48)
[2019-01-26] MEDS: MAGNESIUM OXIDE 400 MG TAB PO SCH (08:28)
[2019-01-26] MEDS: Rifaximin 550 MG Tab PO SCH ×2 (08:28→19:32)
[2019-01-26] MEDS: allopurinoL 300 MG TAB PO SCH (08:28)
[2019-01-26] MEDS: CYANOCOBALAMIN 1,000 MCG TAB PO SCH (08:28)
[2019-01-26] MEDS: ASPIRIN EC 81 MG TAB PO SCH (08:29)
[2019-01-26] MEDS: FUROSEMIDE 20 MG TABLET PO SCH (08:29)
[2019-01-26] MEDS: FINASTERIDE 5 MG TAB PO SCH (08:29)
[2019-01-26 09:49] LABS: Absolute Lymphocytes (CBC) 2.1 K/uL (0.7-4.9); Basophils % 0.9 % (0-1.3); Hematocrit 39.5 % (39.6-49.0); Lymphocytes % 29.4 % (15.3-44.8); MPV 9.7 fL (7.6-11.3); RBC Red Blood Cell Count 4.47 M/uL (4.33-5.43)
[2019-01-26 10:00] LABS: Albumin 2.2 g/dL (3.4-5.0); Bilirubin Total 0.5 mg/dL (0.2-1.0); Magnesium 2.8 mg/dL (1.8-2.4); Protein, Total 6.3 g/dL (6.4-8.2)
--- NOTE | 2019-01-26 10:28 | RAD REPORT ---
EXAM DESCRIPTION: RAD - Chest Single View - 01/26/2019 9:46 am CLINICAL HISTORY: Transient alteration of awareness COMPARISON: January 20 TECHNIQUE: AP portable chest image was obtained 0943 hours . FINDINGS: No peripheral mass or consolidation. No new or progressive lung parenchymal process. Chron ic lung parenchymal changes are noted. Heart and vasculature are normal. No measurable pleural effusi on and no pneumothorax. No acute bony abnormality seen. No acute aortic findings suspected. IMPRESSION: No acute cardiopulmonary process. No new or progressive finding.
[2019-01-26 12:58] LABS: Urine Appearance CLEAR; Urine Bilirubin NEGATIVE (NEG); Urine Blood 1+ (NEG); Urine Color YELLOW; Urine Glucose NEGATIVE (NEG); Urine Protein NEGATIVE (NEG); Urine Urobilinogen 0.2 mg/dL (0.2-1.0); Urine pH 5.5 (5.0-7.0)
[2019-01-26 13:00] LABS: Urine Bacteria <20 /HPF (NONE SEEN); Urine Culture Reflex Order NOT NEEDED
[2019-01-26] MEDS ORDERED: CEFOTAXIME SODIUM 2 GM VIAL IV SCH (13:00)
[2019-01-26] MEDS ORDERED: CEFEPIME 1 GM/VIAL IV SCH (13:00)
[2019-01-26] MEDS: CEFEPIME/SWI 1gm 10 ML IVP SCH ×2 (13:39→21:04)
--- NOTE | 2019-01-26 14:19 | PN ---
Date of Progress Note: 01/25/2019 Subjective: Patient was seen this morning for followup. He was lying in bed. was present with him and reported that last 2 to 3 days ever since he stayed n.p.o. for EGD and had an EGD done and then Dr. Patrick was trying to get him ready for colonoscopy, which was apparently canceled. His condition has deteriorated with overall generalized weakness and poor appetite. Today, he appeared w eaker than yesterday. He does not have good appetite, but he eats better when is there to bianca t him with the feeding. Objective: Vital Signs: Reviewed. Remains afebrile. HEENT: Unremarkable. Lungs: Clear to auscultation. Heart: Sounds normal. Abdomen: Soft. Bowel sounds normal. No guarding, rigidity, tenderness, or distention. Extremities: No leg edema. Laboratory Data: His ammonia level today 74. Fingerstick blood sugar readings reviewed. Impression: 1.Generalized weakness. 2.Debility. 3.Hepatic encephalopathy. 4.Cirrhosis of liver with ascites. 5.Diabetes mellitus. Plan: We will go ahead and give 20 units of insulin subcutaneously daily in the morning time on basi s of fingerstick blood sugar readings. We will continue other current medical management including h is lactulose. He is having 3 to 5 bowel movements in 24 hours and we will also continue Xifaxan and continue Protonix and I will see him tomorrow for followup. KAITLYNN/MODL Voice ID: [id number] Report ID: [id number]
--- NOTE | 2019-01-26 14:52 | PN ---
Date of Progress Note: 01/26/2019 Subjective: Patient was seen this morning for followup. was present with him at bedside. His condition today has deteriorated compared to yesterday with increased sleepiness and confusion. He g ets agitated when he talks to his . Yesterday, he ate well at breakfast time, not as much as at lunch and fairly good at dinner time as reported by . Objective: Vital Signs: Reviewed. HEENT: Unremarkable. Lungs: Clear to auscultation. Heart: Sounds normal. Abdomen: Soft. Bowel sounds normal. No guarding, rigidity, tenderness, or distention. Extremities: No leg edema. Laboratory Data: Ammonia level this morning 86. Impression: 1.Hepatic encephalopathy. 2.Cirrhosis of liver with ascites. 3.Generalized weakness. 4.Debility. 5.Diabetes mellitus. Plan: We will go ahead and get a chest x-ray, urinalysis, CBC, chemistry, procalcitonin and lactic a ibeth level looking for any infection anywhere. Depending on those results, we will decide if we need to go ahead and get him started on some empiric antibiotics or not. Meanwhile, we will go ahead and continue other current medical management including his diuretic therapy, lactulose, Xifaxan. If by tomorrow, his condition does not improve then we may have to transfer him to medical floor as he will not be able to participate in the physical therapy, unless his condition starts to improve by tomorrow. Details were discussed with jonny matthews. KAITLYNN/MODL Voice ID: [id number] Report ID: [id number]
[2019-01-26] MEDS: ACETAMINOPHEN 500 MG TAB PO PRN (19:32)
--- NOTE | 2019-01-26 20:36 | P.PN ---
Subjective Date of Service: 01/26/19 Chief Complaint: Dysphagia, wt loss, new ascites, ESLD/cirrhosis Subjective: New changes (Somewhat confused and lethargic. He has UTI and still with small amount of ascites with risk of SBP (radiology not available for paracentesis today, Sunday).) Review of Systems 10-point ROS is otherwise unremarkable General: Weakness, Malaise Neurological: Confusion Physical Examination - Vital Signs Temperature: 97.2 F Blood Pressure: 93/58 Pulse: 101 Respirations: 18 Pulse Ox (%): 95 - Physical Exam General: Alert, Oriented x2, Cooperative HEENT: Atraumatic, Normocephalic, PERRLA, EOMI Neck: Supple Respiratory: Normal air movement Cardiovascular: Normal pulses Gastrointestinal: Soft and benign, No tenderness, No rebound, No guarding, Ascites (mild ) Neurological: Normal speech, Abnormal strength (decreased) - Studies Laboratory Data (last 24 hrs) 01/26/19 09:27: Sodium 136, Potassium 4.0, BUN 54 H, Creatinine 1.61 H, Glucose 205 H, Magnesium 2.8 H D, Total Bilirubin 0.5, AST 33, ALT 35, Alkaline Phosphatase 228 H 01/26/19 09:27: WBC 7.2, Hgb 13.0 L, Hct 39.5 L D, Plt Count 225 Assessment And Plan - Current Problems (Diagnosis) (1) Dysphagia Current Visit: Yes Status: Acute (2) Weight loss, abnormal Current Visit: Yes Status: Acute (3) Ascites Current Visit: Yes Status: Acute (4) Cirrhosis Current Visit: Yes Status: Acute - Plan REC: 1) will hold on colonoscopy until patient stronger with improved pre- albumin... 2) increased po intake / nutritional status 3) physical therapy 4) agree with start of Cefotaxime / Cefepime
[2019-01-27] MEDS: LACTULOSE 20 GM/30 ML UCUP PO SCH ×4 (01:00→12:25)
[2019-01-27] MEDS: PANTOPRAZOLE 40MG TABLET PO SCH (06:25)
[2019-01-27] MEDS: INSULIN -REGULAR HUMAN 50 UNIT/0.5 ML ML SQ SCH ×2 (07:30→12:23)
[2019-01-27 07:39] VITALS: BP 93/70; TEMP 96.5
[2019-01-27] MEDS: MAGNESIUM OXIDE 400 MG TAB PO SCH (07:45)
[2019-01-27] MEDS: Rifaximin 550 MG Tab PO SCH (07:45)
[2019-01-27] MEDS: FINASTERIDE 5 MG TAB PO SCH (07:45)
[2019-01-27] MEDS: CYANOCOBALAMIN 1,000 MCG TAB PO SCH (07:45)
[2019-01-27] MEDS: FUROSEMIDE 20 MG TABLET PO SCH (07:46)
[2019-01-27] MEDS: ASPIRIN EC 81 MG TAB PO SCH (07:46)
[2019-01-27] MEDS: ACETAMINOPHEN 500 MG TAB PO PRN (07:46)
[2019-01-27] MEDS: allopurinoL 300 MG TAB PO SCH (07:46)
[2019-01-27] MEDS: PROMOD 30 ML DOSE PO SCH (07:47)
[2019-01-27] MEDS: GLUCERNA SHAKE 237 ML CAN PO SCH (07:47)
[2019-01-27] MEDS: INSULIN GLARGINE 100 UNITS/ML SQ SCH (07:51)
[2019-01-27] MEDS: CEFEPIME/SWI 1gm 10 ML IVP SCH (07:59)
[2019-01-27] MEDS: ENSURE PUDDING 4 OZ CUP PO SCH (09:07)
--- NOTE | 2019-01-27 11:05 | FAST ---
SHIFT START DATE/TIME: 01/27/2019 07:00 (BLOWER FEEDER DYED RAW STOCK) SHIFT END DATE/TIME: 01/27/2019 19:00 (BLOWER FEEDER DYED RAW STOCK) NAME MAURY CRUZ DATE OF : 1935 DATE OF ADMISSION: 01/13/2019 17:07 (BLOWER FEEDER DYED RAW STOCK) PHONE: AGE: 83 SSN# [id number] GENDER: Male ENCOUNTER PHYSICIAN: Dr. Alexy Butler M.D. ADMISSION DIAGNOSIS: - Debility 16 - Debility (16) Liver Cirrhosis. EATING: EATING - STEP 1: Does the patient complete the activity by him/herself with no assistance (physical, verbal/nonverbal cueing, setup/clean-up)? No. EATING - STEP 2: Does the patient need only setup/clean-up assistance from one helper? No. EATING - STEP 3: Does the patient need only verbal/nonverbal cueing or touching/steadying/contact guard assistance fro m one helper? Yes. 1. [id number] ADMISSION PERFORMANCE: Supervision or touching assistance CODE: 04 ORAL HYGIENE: ORAL HYGIENE - STEP 1: Does the patient complete the activity by him/herself with no assistance (physical, verbal/nonverbal cueing, setup/clean-up)? No. ORAL HYGIENE - STEP 2: Does the patient need only setup/clean-up assistance from one helper? No. ORAL HYGIENE - STEP 3: Does the patient need only verbal/nonverbal cueing or touching/steadying/contact guard assistance fro m one helper? No. ORAL HYGIENE - STEP 4: Does the patient need physical assistance - for example lifting or trunk support from one helper - wi th the helper providing less than half of the effort? Yes. 1. [id number] ADMISSION PERFORMANCE: Partial/moderate assistance CODE: 03 TOILETING HYGIENE: TOILETING HYGIENE - STEP 1: Does the patient complete the activity by him/herself with no assistance (physical, verbal/nonverbal cueing, setup/clean-up)? No. TOILETING HYGIENE - STEP 2: Does the patient need only setup/clean-up assistance from one helper? No. TOILETING HYGIENE - STEP 3: Does the patient need only verbal/nonverbal cueing or touching/steadying/contact guard assistance fro m one helper? No. TOILETING HYGIENE - STEP 4: Does the patient need physical assistance - for example lifting or trunk support from one helper - wi th the helper providing less than half of the effort? No. TOILETING HYGIENE - STEP 5: Does the patient need physical assistance - for example lifting or trunk support from one helper - wi th the helper providing more than half of the effort? Yes. 1. [id number] ADMISSION PERFORMANCE: Substantial/maximal assistance CODE: 02 BATHING: Not assessed/no information CODE: - DRESSING - UPPER BODY: Not assessed/no information CODE: - DRESSING - LOWER BODY: Not assessed/no information CODE: - PUTTING ON/TAKING OFF FOOTWEAR: Not assessed/no information CODE: - ROLL LEFT AND RIGHT: Not assessed/no information CODE: - SIT TO LYING: Not attempted due to medical condition or safety concerns CODE: 88 LYING TO SITTING: Not attempted due to medical condition or safety concerns CODE: 88 SIT TO STAND: Not attempted due to medical condition or safety concerns CODE: 88 TRANSFERS: BED, CHAIR: Not attempted due to medical condition or safety concerns CODE: 88 TRANSFER TOILET: Not attempted due to medical condition or safety concerns CODE: 88 TRANSFERS: CAR: Not assessed/no information CODE: - WALK 10 FEET: Not assessed/no information CODE: - 1 STEP (CURB): Not assessed/no information CODE: - PICKING UP OBJECT: Not assessed/no information CODE: - DOES THE PATIENT USE A WHEELCHAIR/SCOOTER? CODE: EXPR WHEEL 50 FEET WITH TWO TURNS: Not assessed/no information CODE: - INDICATE THE TYPE OF WHEELCHAIR/SCOOTER USED: CODE: EXPR WHEEL 150 FEET: Not assessed/no information CODE: - INDICATE THE TYPE OF WHEELCHAIR/SCOOTER USED: CODE: EXPR BLADDER AND BOWEL: H350. BLADDER CONTINENCE (3-DAY ASSESSMENT PERIOD): Incontinent less than daily (e.g., once or twice during the 3-day assessment period) CODE: 2 H400. BOWEL CONTINENCE (3-DAY ASSESSMENT PERIOD): Frequently incontinent (2 or more episodes of bowel incontinence, but at least one continent bowel mo vement) CODE: 2 SIGNATURE PANEL: The following modified sections: 1. [id number] Admission Performance, 1. [id number] Admission Performance, 1. [id number] Admission Performance, 1. [id number] Admission Performance, Code, H350. Bladder Continence (3 -day assessment period), H400. Bowel Continence (3-day assessment period) were [electronically] goldie d by Masoud Lynn on SunJan 27 2019 11:03:40 GMT-0600 (Central Standard Time)
--- NOTE | 2019-01-27 11:30 | RAD REPORT ---
EXAM DESCRIPTION: CT - Head Brain Wo Cont - 01/27/2019 11:12 am CLINICAL HISTORY: AMS, headache Headache, drowsiness COMPARISON: No comparisons TECHNIQUE: All CT scans are performed using dose optimization technique as appropriate and may inclu de automated exposure control or mA/KV adjustment according to patient size. FINDINGS: No intracranial hemorrhage, hydrocephalus or extra-axial fluid collection.Moderate general ized brain atrophy is present with moderate periventricular and deep white matter chronic microvascul ar ischemic changes.No areas of brain edema or evidence of midline shift. The paranasal sinuses and mastoids are clear. The calvarium is intact. IMPRESSION: No acute intracranial abnormality.
--- NOTE | 2019-01-27 16:32 | FAST ---
ENCOUNTER DATE AND TIME: 01/22/2019 08:00 ([facility]) NAME MAURY CRUZ DATE OF : 1935 DATE OF ADMISSION: 01/13/2019 17:07 ([facility]SULT[facility]) PHONE: AGE: 83 N# [id number] GENDER: Male ENCOUNTER PHYSICIAN: Dr. Alexy Butler M.D. ADMISSION DIAGNOSIS: - Debility 16 - Debility (16) Liver Cirrhosis. ROLL LEFT AND RIGHT: ROLL LEFT AND RIGHT - STEP 1: Does the patient complete the activity by him/herself with no assistance (physical, verbal/nonverbal cueing, setup/clean-up)? No. ROLL LEFT AND RIGHT - STEP 2: Does the patient need only setup/clean-up assistance from one helper? Yes. 1. [id number] ADMISSION PERFORMANCE: Setup or clean-up assistance CODE: 05 SIT TO LYING: SIT TO LYING - STEP 1: Does the patient complete the activity by him/herself with no assistance (physical, verbal/nonverbal cueing, setup/clean-up)? No. SIT TO LYING - STEP 2: Does the patient need only setup/clean-up assistance from one helper? Yes. 1. [id number] ADMISSION PERFORMANCE: Setup or clean-up assistance CODE: 05 LYING TO SITTING: LYING TO SITTING ON SIDE OF BED - STEP 1: Does the patient complete the activity by him/herself with no assistance (physical, verbal/nonverbal cueing, setup/clean-up)? No. LYING TO SITTING ON SIDE OF BED - STEP 2: Does the patient need only setup/clean-up assistance from one helper? Yes. 1. [id number] ADMISSION PERFORMANCE: Setup or clean-up assistance CODE: 05 SIT TO STAND: SIT TO STAND - STEP 1: Does the patient complete the activity by him/herself with no assistance (physical, verbal/nonverbal cueing, setup/clean-up)? No. SIT TO STAND - STEP 2: Does the patient need only setup/clean-up assistance from one helper? Yes. 1. [id number] ADMISSION PERFORMANCE: Setup or clean-up assistance CODE: 05 TRANSFERS: BED, CHAIR: CHAIR/SLA-BN-TOHSZ TRANSFER - STEP 1: Does the patient complete the activity by him/herself with no assistance (physical, verbal/nonverbal cueing, setup/clean-up)? No. CHAIR/DHE-HX-COLJR TRANSFER - STEP 2: Does the patient need only setup/clean-up assistance from one helper? Yes. 1. [id number] ADMISSION PERFORMANCE: Setup or clean-up assistance CODE: 05 TRANSFER TOILET: TOILET TRANSFER - STEP 1: Does the patient complete the activity by him/herself with no assistance (physical, verbal/nonverbal cueing, setup/clean-up)? No. TOILET TRANSFER - STEP 2: Does the patient need only setup/clean-up assistance from one helper? Yes. 1. [id number] ADMISSION PERFORMANCE: Setup or clean-up assistance CODE: 05 TRANSFERS: CAR: Not attempted due to environmental limitations (e.g., lack of equipment, weather constraints) CODE: 10 WALK 10 FEET: WALK 10 FEET - STEP 1: Does the patient complete the activity by him/herself with no assistance (physical, verbal/nonverbal cueing, setup/clean-up)? No. WALK 10 FEET - STEP 2: Does the patient need only setup/clean-up assistance from one helper? Yes. 1. [id number] ADMISSION PERFORMANCE: Setup or clean-up assistance CODE: 05 WALK 50 FEET: WALK 50 FEET - STEP 1: Does the patient complete the activity by him/herself with no assistance (physical, verbal/nonverbal cueing, setup/clean-up)? No. WALK 50 FEET - STEP 2: Does the patient need only setup/clean-up assistance from one helper? Yes. 1. [id number] ADMISSION PERFORMANCE: Setup or clean-up assistance CODE: 05 WALK 150 FEET: WALK 150 FEET - STEP 1: Does the patient complete the activity by him/herself with no assistance (physical, verbal/nonverbal cueing, setup/clean-up)? No. WALK 150 FEET - STEP 2: Does the patient need only setup/clean-up assistance from one helper? Yes. 1. [id number] ADMISSION PERFORMANCE: Setup or clean-up assistance CODE: 05 WALK 10 FEET UNEVEN: Not attempted due to medical condition or safety concerns CODE: 88 1 STEP (CURB): 1 STEP CURB - STEP 1: Does the patient complete the activity by him/herself with no assistance (physical, verbal/nonverbal cueing, setup/clean-up)? No. 1 STEP CURB - STEP 2: Does the patient need only setup/clean-up assistance from one helper? Yes. 1. [id number] ADMISSION PERFORMANCE: Setup or clean-up assistance CODE: 05 4 STEPS: 4 STEPS - STEP 1: Does the patient complete the activity by him/herself with no assistance (physical, verbal/nonverbal cueing, setup/clean-up)? No. 4 STEPS - STEP 2: Does the patient need only setup/clean-up assistance from one helper? Yes. 1. [id number] ADMISSION PERFORMANCE: Setup or clean-up assistance CODE: 05 12 STEPS: 12 STEPS - STEP 1: Does the patient complete the activity by him/herself with no assistance (physical, verbal/nonverbal cueing, setup/clean-up)? No. 12 STEPS - STEP 2: Does the patient need only setup/clean-up assistance from one helper? Yes. 1. [id number] ADMISSION PERFORMANCE: Setup or clean-up assistance CODE: 05 PICKING UP OBJECT: Not attempted due to medical condition or safety concerns CODE: 88 DOES THE PATIENT USE A WHEELCHAIR/SCOOTER? Q1. DOES THE PATIENT USE A WHEELCHAIR/SCOOTER?: Yes CODE: 1 WHEEL 50 FEET WITH TWO TURNS: WHEEL 50 FEET WITH TWO TURNS - STEP 1: Does the patient complete the activity by him/herself with no assistance (physical, verbal/nonverbal cueing, setup/clean-up)? Yes. 1. [id number] ADMISSION PERFORMANCE: Independent CODE: 06 INDICATE THE TYPE OF WHEELCHAIR/SCOOTER USED: RR1. INDICATE THE TYPE OF WHEELCHAIR/SCOOTER USED.: Manual CODE: 1 WHEEL 150 FEET: WHEEL 150 FEET - STEP 1: Does the patient complete the activity by him/herself with no assistance (physical, verbal/nonverbal cueing, setup/clean-up)? Yes. 1. [id number] ADMISSION PERFORMANCE: Independent CODE: 06 INDICATE THE TYPE OF WHEELCHAIR/SCOOTER USED: SS1. INDICATE THE TYPE OF WHEELCHAIR/SCOOTER USED.: Manual CODE: 1 BLADDER AND BOWEL: CODE: EXPR CODE: EXPR SIGNATURE PANEL: The following modified sections: 1. [id number] Admission Performance, 1. [id number] Admission Performance, 1. XW4659V Admission Performance, 1. DG5741K Admission Performance, 1. [id number] Admission Performance, 1. [id number] Admission Performance, 1. CT3024P Admission Performance, 1. IS6084O Admission Performance , 1. YC6686J Admission Performance, 1. IF9549D Admission Performance, 1. [id number] Admission Performanc e, 1. [id number] Admission Performance, Q1. Does the patient use a wheelchair/scooter?, 1. DG2244G Admis eliseo Performance, RR1. Indicate the type of wheelchair/scooter used., 1. [id number] Admission Performanc e, Code, SS1. Indicate the type of wheelchair/scooter used. were [electronically] signed by Paresh johnston PTA on SunJan 27 2019 16:31:26 GMT-0600 (Central Standard Time)
--- NOTE | 2019-01-28 05:13 | DS ---
Date of Discharge: 01/27/2019 Disposition: Transferred from rehab floor to medical floor. Physical Examination: HEENT: Unremarkable. Lungs: Clear to auscultation. Heart: Heart sounds normal. Abdomen: Soft, bowel sounds normal. No guarding, rigidity, tenderness, or distention. Small amount of ascites present. Extremities: No leg edema. Discharge Diagnoses: 1. Hepatic encephalopathy. 2. Generalized weakness. 3. Debility. 4. Rule out subacute bacterial peritonitis. 5. Coronary artery disease. 6. Hypertension. 7. Mixed hyperlipidemia. 8. Type 2 diabetes mellitus. 9. Gastroesophageal reflux disease. Hospital Course: This is an 83-year-old pleasant male, who is admitted to rehab floor after his medical floor admission for generalized weakness, debility. He was improving from hepatic encephalopathy. While he was on the rehab floor, his condition continued to improve. While on medical floor, he had candidal esophagitis, which was treated with Diflucan and he received about 10 days of Diflucan altogether and his dysphagia and odynophagia completely resolved. He started eating very well and he was gaining his strength back, participating well with the physical therapy. Sometime middle of last week he started to have problem with dysphagia again and that had started to affect his oral intake of food. So, GI consultation was requested from Dr. Patrick. Patient had an EGD done, which showed no evidence of candidal esophagitis, but did show some evidence of gastroesophageal reflux disease problem with esophagitis, gastritis, etc. Patient has been getting Protonix, which was continued on rehab floor as well. During later part of last week, his condition started to deteriorate with increasing weakness, confusion, and yesterday we were concerned with worsening condition possibility of subacute bacterial peritonitis and empiric antibiotic was started. There was no radiologist available to do any elective paracentesis yesterday for diagnostic purpose, so we started empiric antibiotics. Chest x-ray was negative for pneumonia. Urinalysis was negative for any infection. This was done yesterday on rehab floor. CAT scan of the head done today on rehab floor, was negative for any acute intracranial changes. So, what we have done is now with his worsening condition, decision was made to transfer him from rehab floor to medical floor as the patient has not been able to participate in any physical therapy with worsening of condition. KAITLYNN/MODL Voice ID: [id number] Report ID: [id number] LESLYE
--- NOTE | 2019-02-05 17:54 | R.DS ---
FACILITY [facility] MR# [id number] NAME DIRK CRUZ ADDRESS [address] [place]IP [address] PHONE DATE OF 1935 AGE 83 SSN# [id number] GENDER Male DEXTERITY Right-handed MARITAL STATUS RACE White ENCOUNTER PHYSICIAN Dr. Alexy Butler M.D. REFERRING DOCTOR Dru Andres REFERRING FACILITY [facility] DISCHARGE DIAGNOSIS: - Debility 16 - Debility (16) Liver Cirrhosis. 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 - ContinueMedical management by Dr. Andres.. NURSING: - Shower allowing shower - Lab Results blood Sugar Check ACHS ACTIVITIES OOB only with supervision THERAPIES: - Dietary and Nutrition Adequate Nutrition Nutritional Education Nutritional Supplements HISTORY OF PRESENT ILLNESS: Pt. is a 83 yo Right-handed white male.On 01/09/2019 he was admitted to [facility] with diagnosis Liver Cirrhosis.His impairment category is Debility 16 - Debility (16).Pre-morbid ly, Pt. was independent/mod-I in Locomotion, Safety Awareness, Balance, Social Cognition, Transfers C ontrol, Self-Care, Endurance, Sphincter Control, and Communication; and he had good Locomotion, Darlin ce, Safety Awareness, Social Cognition, Transfers Control, Sphincter Control, Self-Care, Communicatio n, and Endurance.Currently, he has deficits of Locomotion, Balance, Safety Awareness, Social Cognitio n, Transfers Control, Sphincter Control, Self-Care, and Communication.Pt. is now referred to [facility] for acute in-patient rehabilitation in order to maximize patient's function al independence in activities of daily living, strength, ROM, and mobility.- Rehab Goal Patient has realistic goal of being discharged at assistance level 6-Layo to reside at Home with Fam denise/Relatives. Dirk Cruz is a83 year old male that lives in a single kelly house with his . He was independent with ADLs and self care. On 01/09/2019, patient was having generalized weakness, excessive sleepiness, abdomen was distended and back pain and was admitted at [facility]. He is now medically stable but in need of 24-hour nursing, doctor supervision and oversite while receiving active and ongoing intensive (PT, OT therapy a day/15 hours per week and receive care with an intensive interdisciplinary approach.HOSPITAL COURSE: DIET - LIQUID TEXTURE: On 01/13/2019 Pt was upgraded to Regular Diet - Liquid Texture. DIET - SOLID TEXTURE: On 01/13/2019 Pt was upgraded to Regular Diet - Solid Texture. DIET TYPE: On 01/13/2019 Pt was upgraded to Regular Diet Type. TUBE FEED: On 01/13/2019 Pt was changed to N/A Tube Feed. DISCHARGE PHYSICAL EXAM - Gen Alert and awake Lying in bed No apparent distress Oriented to: person, time, and place - Skin No skin breakdown. No abnormalities - Eyes No abnormalities - ENMT No abnormalities - Neck No abnormalities - CVS RRR - Chest No abnormalities - Resp Clear to auscultation - Abd Distended - GI + bowel sounds Deferred - No abnormalities - Ext Mild bilateral lower extremity edema. - MSK 4+/5 weakness in both lower extremities. - Neuro 4/5 strength bilaterally upper and lower extremities. - Psych No abnormalities DISCHARGE FUNCTIONAL/MEDICAL STATUS: - N/A New Mr. Cruz was discharged to the acute car floor due to possible sepsis. FUNCTIONAL STATUS: - Self-Care A. Eating 7-Ind B. Grooming 6-Layo C. Bathing 4-Ernst D. Dressing - Upper 4-Ernst E. Dressing - Lower 3-modA F. Toileting 5-sup - Sphincter Control G. Bladder control 4-Ernst H. Bowel control 4-Ernst - Transfers Control I. Bed/Chair/Wheelchair 4-Ernst J. Toilet 4-Ernst K. Tub/Shower 3-modA - Locomotion L. Walk/Wheelchair (B) 4-Ernst M. Stairs 1-Dep - Communication N. Comprehension (B) 6-Layo O. Expression (B) 6-Layo - Social Cognition P. Social Interaction 6-Layo Q. Problem Solving 6-Layo R. Memory 5-sup - Endurance Good - Balance Good - Safety Awareness Good QI SCORES: - Self-Care A. Eating 05-Setup or clean-up assistance B. Oral hygiene 05-Setup or clean-up assistance C. Toileting hygiene 05-Setup or clean-up assistance E. Shower/bathe self 05-Setup or clean-up assistance F. Upper body dressing 04-Supervision or touching assistance G. Lower body dressing 04-Supervision or touching assistance H. Putting on/taking off footwear 03-Partial/moderate assistance - Mobility A. Roll left and right 04-Supervision or touching assistance B. Sit to lying 03-Partial/moderate assistance C. Lying to sitting on side of bed 03-Partial/moderate assistance D. Sit to stand 03-Partial/moderate assistance E. Chair/csy-ky-sdhfx transfer 03-Partial/moderate assistance F. Toilet transfer 03-Partial/moderate assistance G. Car transfer 88-Not attempted due to medical condition or safety concerns I. Walk 10 feet 04-Supervision or touching assistance J. Walk 50 feet with two turns 04-Supervision or touching assistance K. Walk 150 feet 88-Not attempted due to medical condition or safety concerns L. Walking 10 feet on uneven surfaces 88-Not attempted due to medical condition or safety concerns M. 1 step (curb) 88-Not attempted due to medical condition or safety concerns N. 4 steps 88-Not attempted due to medical condition or safety concerns O. 12 steps 88-Not attempted due to medical condition or safety concerns P. Picking up object 88-Not attempted due to medical condition or safety concerns R. Wheel 50 feet with two turns 02-Substantial/maximal assistance S. Wheel 150 feet 02-Substantial/maximal assistance - Bladder and Bowel Bladder continence 0-Always continent Bowel continence 0-Always continent - Endurance Fair - Balance Fair - Safety Awareness Fair DISCHARGE INSTRUCTIONS: - N/A Aspirin 81 mg daily. DISCHARGE PLAN, FOLLOW UP CARE PROVISIONS: - Estimated Length of Stay (days) 13. - Consensus on plan Discharge plan has been discussed with primary caregiver. Patient/Family is in agreement with the venus n. Primary caregiver is in agreement with the plan. - Patient/Family Goals Return home with assistance. - Planned Living Setting Upon Discharge Home, to live with Family/Relatives. Transitional Living. SIGNATURE PANEL: (CONCRETE FINISHING MACHINE OPERATOR)
== END 2019-01-27 14:50 | disposition short-term general hospital (02) | DRG 432 ==
LOC: 5TH 17:07
PROVIDERS: ADMIT Internal Medicine; ATTEND Internal Medicine
PROC: 0DB68ZX Excision of Stomach, Via Natural or Artificial Opening Endoscopic, Diagnostic (ICD-10-PCS; principal; 2019-01-13)
PROC: 0D738ZZ Dilation of Lower Esophagus, Via Natural or Artificial Opening Endoscopic (ICD-10-PCS; 2019-01-13)
PROC: 0W9G3ZZ Drainage of Peritoneal Cavity, Percutaneous Approach (ICD-10-PCS; 2019-01-22)
DX: K74.60 Unspecified cirrhosis of liver (principal); K65.2 Spontaneous bacterial peritonitis; R18.8 Other ascites; B37.81 Candidal esophagitis; Z68.1 Body mass index [BMI] 19.9 or less, adult; K22.10 Ulcer of esophagus without bleeding; N39.0 Urinary tract infection, site not specified; N17.9 Acute kidney failure, unspecified; R54 Age-related physical debility; K72.90 Hepatic failure, unspecified without coma; E11.9 Type 2 diabetes mellitus without complications; E78.2 Mixed hyperlipidemia; D64.9 Anemia, unspecified; E83.42 Hypomagnesemia; J44.9 Chronic obstructive pulmonary disease, unspecified; K29.80 Duodenitis without bleeding; K21.9 Gastro-esophageal reflux disease without esophagitis; N40.0 Benign prostatic hyperplasia without lower urinary tract symptoms; F32.9 Major depressive disorder, single episode, unspecified; M10.9 Gout, unspecified; G47.00 Insomnia, unspecified; I10 Essential (primary) hypertension; I25.10 Atherosclerotic heart disease of native coronary artery without angina pectoris; I50.9 Heart failure, unspecified; R13.10 Dysphagia, unspecified; R63.4 Abnormal weight loss
CPT/HCPCS: 36415; 49083; 70450; 71045; 74018; 80048; 80053; 80076; 81001; 82040; 82140; 82947; 83605; 83735; 84134; 84145; 85014; 85018; 85025; 85610; 85730; 88305; 88312; 92523; 92526; 92610; 97110; 97112; 97116; 97127; 97161; 97530; 97542; C9113; J0692; J1450; J1815; J2704; J2765; J7799

== ENCOUNTER 2019-01-27 15:08 | Inpatient (IN) | payer OTHER, BC ==
--- OUTSIDE RECORDS SUMMARY | 2019-01-27 15:11 | XMS REPORT ---
:1935 [facility] Address [address] [place] [address] Dr. Black [address] [place] [id number] Care Team Providers Name Role Phone AMILCAR [...] Value Reference Range Comments ALPHA-FETOPROTEIN (BEAKER) (test kkcj=8144) < ng/mL <10.0 HEPATIC FUNCTION [id number] 18:34:00 Test Item Value Reference Range Comments TOTAL PROTEIN (BEAKER) (test ztcu=339) 6.3 gm/dL 6.0-8.3 ALBUMIN (BEAKER) (test ysbk=6880) 3.2 g/dL 3.5-5.0 BILIRUBIN TOTAL (BEAKER) (test dijw=461) 0.7 mg/dL 0.2-1.2 BILIRUBIN DIRECT (BEAKER) (test iunu=229) 0.4 mg/dL 0.1-0.5 ALKALINE PHOSPHATASE (BEAKER) (test lzni=203) 146 U/L 40-150 AST (SGOT) (BEAKER) (test rgtp=949) 29 U/L 5-34 ALT (SGPT) (BEAKER) (test gpzl=658) 23 U/L 6-55 BASIC METABOLIC [id number] 18:34:00 Test Item Value Reference Range Comments SODIUM (BEAKER) (test 136 meq/L 136-145 znyt=900) POTASSIUM (BEAKER) (test 3.4 meq/L 3.5-5.1 vgkp=479) CHLORIDE (BEAKER) (test 101 meq/L 98-107 iljq=710) CO2 (BEAKER) (test 27 meq/L 22-29 kqfp=714) BLOOD UREA NITROGEN 20 mg/dL 7-21 (BEAKER) (test hfjo=868) CREATININE (BEAKER) (test 1.06 mg/dL 0.57-1.25 tazq=424) GLUCOSE RANDOM (BEAKER) 246 mg/dL 70-105 (test ppmp=111) CALCIUM (BEAKER) (test 9.1 mg/dL 8.4-10.2 hpbq=093) EGFR (BEAKER) (test 67 mL/min/1.73 sq m ESTIMATED GFR IS NOT hnkf=0258) ACCURATE CREATININE CLEARANCE IN PREDICTING GLOMERULAR FILTRATION RATE. ESTIMATED GFR IS NOT APPLICABLE FOR DIALYSIS PATIENTS. PROTHROMBIN [id number] 17:50:00 Test Item Value Reference Range Comments PROTIME (BEAKER) (test ujzy=701) 15.4 seconds 11.9-14.2 INR (BEAKER) (test hwec=186) 1.3 <=5.9 Effective 07/17/2018: PT Reference Range ChangeNew: 11.9-14.2 Previous: 11.7- 14.7RECOMMENDED COUMADIN/WARFARIN INR THERAPY RANGESSTANDARD DOSE: 2.0-3.0 Includes: PROPHYLAXIS for venous thrombosis, systemic embolization; TREATMENT for venous thrombosis and/or pulmonary embolus.HIGH RISK: Target INR is2.5-3.5 for patients wiht mechanical heart valves.CBC W/PLT COUNT & AUTO [id number] 17:39:00 Test Item Value Reference Range Comments WHITE BLOOD CELL COUNT (BEAKER) (test igcz=439) 7.8 K/ L 3.5-10.5 RED BLOOD CELL COUNT (BEAKER) (test cmtf=941) 4.12 M/ L 4.63-6.08 HEMOGLOBIN (BEAKER) (test mbej=415) 11.5 GM/DL 13.7-17.5 HEMATOCRIT (BEAKER) (test wazj=931) 36.5 % 40.1-51.0 MEAN CORPUSCULAR VOLUME (BEAKER) (test oqjr=273) 88.6 fL 79.0-92.2 MEAN CORPUSCULAR HEMOGLOBIN (BEAKER) (test 27.9 pg 25.7-32.2 yxmv=167) MEAN CORPUSCULAR HEMOGLOBIN CONC (BEAKER) (test 31.5 GM/DL 32.3-36.5 pafu=975) RED CELL DISTRIBUTION WIDTH (BEAKER) (test 20.7 % 11.6-14.4 ebri=298) PLATELET COUNT (BEAKER) (test slac=188) 238 K/CU MM 150-450 MEAN PLATELET VOLUME (BEAKER) (test cdxh=949) 11.2 fL 9.4-12.4 NUCLEATED RED BLOOD CELLS (BEAKER) (test 0 /100 WBC 0-0 vwri=894) NEUTROPHILS RELATIVE PERCENT (BEAKER) (test 60 % llbh=397) LYMPHOCYTES RELATIVE PERCENT (BEAKER) (test 25 % fpjh=267) MONOCYTES RELATIVE PERCENT (BEAKER) (test 12 % ihhm=322) EOSINOPHILS RELATIVE PERCENT (BEAKER) (test 2 % tdiy=810) BASOPHILS RELATIVE PERCENT (BEAKER) (test 1 % xlno=638) NEUTROPHILS ABSOLUTE COUNT (BEAKER) (test 4.68 K/ L 1.78-5.38 wxjd=978) LYMPHOCYTES ABSOLUTE COUNT (BEAKER) (test 1.98 K/ L 1.32-3.57 iohb=586) MONOCYTES ABSOLUTE COUNT (BEAKER) (test 0.93 K/ L 0.30-0.82 ncpq=179) EOSINOPHILS ABSOLUTE COUNT (BEAKER) (test 0.14 K/ L 0.04-0.54 yykx=677) BASOPHILS ABSOLUTE COUNT (BEAKER) (test 0.05 K/ L 0.01-0.08 ywni=661) IMMATURE GRANULOCYTES-RELATIVE PERCENT (BEAKER) 1 % 0-1 (test xylp=4327) BLOOD [id number] 08:00:00 Test Item Value Reference Range Comments CULTURE (BEAKER) (test fljb=6138) No growth in 5 days BLOOD [id number] 08:00:00 Test Item Value Reference Range Comments CULTURE (BEAKER) (test zzuv=2514) No growth in 5 days U/S, [id number] 17:55:00Labs to be ordered:->Other (please add comment)cell countReason for exam:->diagnostic and therapeutic para for cirrhotic ptaient coming in with abd pain and distension.FINAL REPORT Ultrasound guided paracentesis Clinical History: Ascites. Sedation : None. Pharmacist Critical Care: Jenniffer Duran PA-C Supervising Physician: Jose Alejandro Palmer MD Chief Innovation Officer: None. Estimated Blood Loss: < 1 mL. [...] anesthesia was achieved with lidocaine, a 5 [place] one-step catheter was advanced into the peritoneal cavity under ultrasound guidance. After completion of drainage, the catheter was removed. There was no evidence of complication. Impression:Successful ultrasound guided paracentesis. Signed: Jose Alejandro Palmer MDReport Verified Date/ Time: 11/20/2018 17:55:49 Reading Location: [address] Ultrasound Reading Room POCT-GLUCOSE [id number] 13:27:00 Test Item Value Reference Range Comments POC-GLUCOSE METER (BEAKER) 250 mg/dL 70-110 TESTED AT [address] (test oyav=8940) [facility] [address] STOOL CULTURE + SHIGA [id number] 12:42:00 Test Item Value Reference Range Comments CULTURE (LANNY) (test No Salmonella, Shigella or dwxy=5166) Campylobacter isolated STOOL PATH [id number] 12:42:00 Test Item Value Reference Range Comments PATHOGEN EXAM CHARGED (LANNY) (test tsoi=2316) Done U/S, ABDOMINAL, [id number] 09:32:00Reason for exam:->new dx cirrhosis. with doppler [...] MDReport Verified Date/Time: 11/20/2018 09:32:31 Reading Location: [address] Radiology Reading Room POCT-GLUCOSE [id number] 08:21:00 Test Item Value Reference Range Comments POC-GLUCOSE METER (LANNY) 156 mg/dL 70-110 TESTED AT [facility] [address] (test rgro=2078) [place] [address] [id number] 04:25:00 Test Item Value Reference Range Comments PHOSPHORUS (BEAKER) (test daft=254) 2.8 mg/dL 2.3-4.7 [id number] 04:25:00 Test Item Value Reference Range Comments MAGNESIUM (BEAKER) (test ixqz=286) 1.8 mg/dL 1.6-2.6 BASIC METABOLIC [id number] 04:25:00 Test Item Value Reference Range Comments SODIUM (BEAKER) (test 134 meq/L 136-145 hikl=358) POTASSIUM (BEAKER) (test 3.3 meq/L 3.5-5.1 yvck=524) CHLORIDE (BEAKER) (test 103 meq/L 98-107 zwhx=301) CO2 (BEAKER) (test 22 meq/L 22-29 uqbu=656) BLOOD UREA NITROGEN 34 mg/dL 7-21 (BEAKER) (test gmtp=710) CREATININE (BEAKER) (test 1.26 mg/dL 0.57-1.25 rpxl=014) GLUCOSE RANDOM (BEAKER) 174 mg/dL 70-105 (test yoki=093) CALCIUM (BEAKER) (test 8.9 mg/dL 8.4-10.2 wdvj=451) EGFR (BEAKER) (test 55 mL/min/1.73 sq m ESTIMATED GFR IS NOT yooh=2984) ACCURATE CREATININE CLEARANCE IN PREDICTING GLOMERULAR FILTRATION RATE. ESTIMATED GFR IS NOT APPLICABLE FOR DIALYSIS PATIENTS. HEPATIC FUNCTION [id number] 04:25:00 Test Item Value Reference Range Comments TOTAL PROTEIN (BEAKER) (test anqm=285) 5.8 gm/dL 6.0-8.3 ALBUMIN (BEAKER) (test quho=4000) 2.6 g/dL 3.5-5.0 BILIRUBIN TOTAL (BEAKER) (test lupu=741) 0.3 mg/dL 0.2-1.2 BILIRUBIN DIRECT (BEAKER) (test wwsh=327) 0.2 mg/dL 0.1-0.5 ALKALINE PHOSPHATASE (BEAKER) (test diku=782) 111 U/L 40-150 AST (SGOT) (BEAKER) (test yfjn=826) 18 U/L 5-34 ALT (SGPT) (BEAKER) (test oqei=401) 10 U/L 6-55 PROTHROMBIN [id number] 03:40:00 Test Item Value Reference Range Comments PROTIME (BEAKER) (test jpjc=302) 15.8 seconds 11.9-14.2 INR (BEAKER) (test tghl=719) 1.3 <=5.9 Effective 07/17/2018: PT Reference Range ChangeNew: 11.9-14.2 Previous: 11.7- 14.7RECOMMENDED COUMADIN/WARFARIN INR THERAPY RANGESSTANDARD DOSE: 2.0-3.0 Includes: PROPHYLAXIS for venous thrombosis, systemic embolization; TREATMENT for venous thrombosis and/or pulmonary embolus.HIGH RISK: Target INR is2.5-3.5 for patients wiht mechanical heart valves.CBC W/PLT COUNT & AUTO [id number] 03:31:00 Test Item Value Reference Range Comments WHITE BLOOD CELL COUNT (BEAKER) (test ctns=755) 6.2 K/ L 3.5-10.5 RED BLOOD CELL COUNT (BEAKER) (test zcnw=912) 3.73 M/ L 4.63-6.08 HEMOGLOBIN (BEAKER) (test vvmj=404) 10.3 GM/DL 13.7-17.5 HEMATOCRIT (BEAKER) (test zzcf=378) 31.7 % 40.1-51.0 MEAN CORPUSCULAR VOLUME (BEAKER) (test zbne=227) 85.0 fL 79.0-92.2 MEAN CORPUSCULAR HEMOGLOBIN (BEAKER) (test 27.6 pg 25.7-32.2 nrbe=422) MEAN CORPUSCULAR HEMOGLOBIN CONC (BEAKER) (test 32.5 GM/DL 32.3-36.5 qbzn=644) RED CELL DISTRIBUTION WIDTH (BEAKER) (test 17.7 % 11.6-14.4 jvmd=327) PLATELET COUNT (BEAKER) (test cdnh=638) 221 K/CU MM 150-450 MEAN PLATELET VOLUME (BEAKER) (test ktbn=015) 10.9 fL 9.4-12.4 NUCLEATED RED BLOOD CELLS (BEAKER) (test 0 /100 WBC 0-0 vwbv=097) NEUTROPHILS RELATIVE PERCENT (BEAKER) (test 55 % vzcb=848) LYMPHOCYTES RELATIVE PERCENT (BEAKER) (test 28 % pnol=047) MONOCYTES RELATIVE PERCENT (BEAKER) (test 13 % qlmg=594) EOSINOPHILS RELATIVE PERCENT (BEAKER) (test 3 % oxfn=378) BASOPHILS RELATIVE PERCENT (BEAKER) (test 1 % ruwu=862) NEUTROPHILS ABSOLUTE COUNT (BEAKER) (test 3.41 K/ L 1.78-5.38 fbhj=256) LYMPHOCYTES ABSOLUTE COUNT (BEAKER) (test 1.70 K/ L 1.32-3.57 bzxs=375) MONOCYTES ABSOLUTE COUNT (BEAKER) (test 0.79 K/ L 0.30-0.82 tnno=652) EOSINOPHILS ABSOLUTE COUNT (BEAKER) (test 0.20 K/ L 0.04-0.54 lldz=017) BASOPHILS ABSOLUTE COUNT (BEAKER) (test 0.07 K/ L 0.01-0.08 hjzl=071) IMMATURE GRANULOCYTES-RELATIVE PERCENT (BEAKER) 0 % 0-1 (test abci=2002) POCT-GLUCOSE [id number] 20:31:00 Test Item Value Reference Range Comments POC-GLUCOSE METER (BEAKER) 193 mg/dL 70-110 TESTED AT [facility] [address] [facility] (test qwyn=7096) [facility] [address] BODY FLUID CELL COUNT WITH [id number] 17:35:00 Test Item Value Reference Range Comments APPEARANCE FLUID (BEAKER) (test zoke=003) Clear Clear COLOR FLUID (BEAKER) (test feiv=803) Straw Colorless, Straw RBC FLUID (BEAKER) (test fmcd=929) 728 /cu mm <=1 ADJUSTED WBC FLUID (BEAKER) (test ehuu=5947) 85 /cu mm <=5 LINING CELLS (BEAKER) (test dqjp=0020) 4 /cu mm <=1 NEUTROPHILS FLUID (BEAKER) (test algr=6684) 15 % LYMPHS FLUID (BEAKER) (test feon=471) 45 % MONO/MACROPHAGE FLUID (BEAKER) (test sbkg=755) 40 % EOSINOPHILS FLUID (BEAKER) (test jexx=161) 0 % BASO FLUID (BEAKER) (test tnah=634) 0 % CONTAINER BODY FLUID (BEAKER) (test iocr=6781) EDTA Tube POCT-GLUCOSE [id number] 16:48:00 Test Item Value Reference Range Comments POC-GLUCOSE METER (BEAKER) 104 mg/dL 70-110 TESTED AT [address] (test kavy=7887) [place] [id number] 14:29:00 Test Item Value Reference Range Comments FERRITIN (BEAKER) (test yzjo=872) 119 ng/mL 5-275 SHIGA TOXIN [id number] 14:02:00 Test Item Value Reference Range Comments SHIGA TOXIN 1 (BEAKER) (test lmqe=9043) Not detected Not detected SHIGA TOXIN 2 (BEAKER) (test mxuy=5042) Not detected Not detected IRON, TIBC, % SAT. (WITHOUT FERRITIN)2018-11-19 14:00:00 Test Item Value Reference Range Comments IRON (BEAKER) (test tmws=610) 47.0 ug/dL 40.0-160.0 TOTAL IRON BINDING CAPACITY (BEAKER) (test 231 ug/dL 250-450 outv=554) IRON % SATURATION (2) (BEAKER) (test qaxc=9505) 20 % 20-55 POCT-GLUCOSE [id number] 12:35:00 Test Item Value Reference Range Comments POC-GLUCOSE METER (BEAKER) 154 mg/dL 70-110 TESTED AT [address] (test ynvo=4605) [place] [address] POCT-GLUCOSE [id number] 12:35:00 Test Item Value Reference Range Comments POC-GLUCOSE METER (BEAKER) 186 mg/dL 70-110 TESTED AT [address] (test vgve=4048) [place] [address] ANTI-NUCLEAR ANTIBODY (RANJANA)2018-11-19 10:03:00 Test Item Value Reference Range Comments ANTI-NUCLEAR ANTIBODY (RANJANA) (BEAKER) (test Negative Negative fnqr=434) Test performed by IFA method.Test performed by IFA method.[id number] 05:56:00 Test Item Value Reference Range Comments PHOSPHORUS (BEAKER) (test yiec=660) 3.3 mg/dL 2.3-4.7 [id number] 05:56:00 Test Item Value Reference Range Comments MAGNESIUM (BEAKER) (test lmrd=904) 1.8 mg/dL 1.6-2.6 BASIC METABOLIC [id number] 05:56:00 Test Item Value Reference Range Comments SODIUM (BEAKER) (test 133 meq/L 136-145 fymm=180) POTASSIUM (BEAKER) (test 3.6 meq/L 3.5-5.1 jxxv=364) CHLORIDE (BEAKER) (test 101 meq/L 98-107 ykxi=304) CO2 (BEAKER) (test 22 meq/L 22-29 lynf=201) BLOOD UREA NITROGEN 39 mg/dL 7-21 (BEAKER) (test xkzy=590) CREATININE (BEAKER) (test 1.59 mg/dL 0.57-1.25 harv=221) GLUCOSE RANDOM (BEAKER) 190 mg/dL 70-105 (test mrpj=045) CALCIUM (BEAKER) (test 9.0 mg/dL 8.4-10.2 rqud=643) EGFR (BEAKER) (test 42 mL/min/1.73 sq m ESTIMATED GFR IS NOT nijh=4255) ACCURATE CREATININE CLEARANCE IN PREDICTING GLOMERULAR FILTRATION RATE. ESTIMATED GFR IS NOT APPLICABLE FOR DIALYSIS PATIENTS. HEPATIC FUNCTION [id number] 05:56:00 Test Item Value Reference Range Comments TOTAL PROTEIN (BEAKER) (test fxbm=023) 6.1 gm/dL 6.0-8.3 ALBUMIN (BEAKER) (test tmoh=7337) 2.8 g/dL 3.5-5.0 BILIRUBIN TOTAL (BEAKER) (test qcfu=096) 0.3 mg/dL 0.2-1.2 BILIRUBIN DIRECT (BEAKER) (test oxjv=150) 0.2 mg/dL 0.1-0.5 ALKALINE PHOSPHATASE (BEAKER) (test clnd=883) 117 U/L 40-150 AST (SGOT) (BEAKER) (test zscs=822) 15 U/L 5-34 ALT (SGPT) (BEAKER) (test poaz=546) 10 U/L 6-55 PROTHROMBIN [id number] 05:09:00 Test Item Value Reference Range Comments PROTIME (BEAKER) (test estk=785) 15.2 seconds 11.9-14.2 INR (BEAKER) (test cmge=427) 1.3 <=5.9 Effective 07/17/2018: PT Reference Range ChangeNew: 11.9-14.2 Previous: 11.7- 14.7RECOMMENDED COUMADIN/WARFARIN INR THERAPY RANGESSTANDARD DOSE: 2.0-3.0 Includes: PROPHYLAXIS for venous thrombosis, systemic embolization; TREATMENT for venous thrombosis and/or pulmonary embolus.HIGH RISK: Target INR is2.5-3.5 for patients wiht mechanical heart valves.CBC W/PLT COUNT & AUTO [id number] 05:02:00 Test Item Value Reference Range Comments WHITE BLOOD CELL COUNT (BEAKER) (test hdcp=295) 8.7 K/ L 3.5-10.5 RED BLOOD CELL COUNT (BEAKER) (test jvhm=647) 3.86 M/ L 4.63-6.08 HEMOGLOBIN (BEAKER) (test rojt=931) 10.4 GM/DL 13.7-17.5 HEMATOCRIT (BEAKER) (test ulal=497) 32.7 % 40.1-51.0 MEAN CORPUSCULAR VOLUME (BEAKER) (test qifg=061) 84.7 fL 79.0-92.2 MEAN CORPUSCULAR HEMOGLOBIN (BEAKER) (test 26.9 pg 25.7-32.2 vghz=529) MEAN CORPUSCULAR HEMOGLOBIN CONC (BEAKER) (test 31.8 GM/DL 32.3-36.5 dhue=570) RED CELL DISTRIBUTION WIDTH (BEAKER) (test 17.4 % 11.6-14.4 ytqy=891) PLATELET COUNT (BEAKER) (test wmxj=710) 244 K/CU MM 150-450 MEAN PLATELET VOLUME (BEAKER) (test ktrn=054) 11.1 fL 9.4-12.4 NUCLEATED RED BLOOD CELLS (BEAKER) (test 0 /100 WBC 0-0 ayeq=892) NEUTROPHILS RELATIVE PERCENT (BEAKER) (test 59 % gaiu=606) LYMPHOCYTES RELATIVE PERCENT (BEAKER) (test 23 % zyth=867) MONOCYTES RELATIVE PERCENT (BEAKER) (test 14 % tlxn=713) EOSINOPHILS RELATIVE PERCENT (BEAKER) (test 3 % xhii=887) BASOPHILS RELATIVE PERCENT (BEAKER) (test 1 % eiwj=863) NEUTROPHILS ABSOLUTE COUNT (BEAKER) (test 5.10 K/ L 1.78-5.38 cezl=030) LYMPHOCYTES ABSOLUTE COUNT (BEAKER) (test 2.04 K/ L 1.32-3.57 sqvi=845) MONOCYTES ABSOLUTE COUNT (BEAKER) (test 1.26 K/ L 0.30-0.82 txlt=084) EOSINOPHILS ABSOLUTE COUNT (BEAKER) (test 0.22 K/ L 0.04-0.54 ewmx=977) BASOPHILS ABSOLUTE COUNT (BEAKER) (test 0.07 K/ L 0.01-0.08 fspx=851) IMMATURE GRANULOCYTES-RELATIVE PERCENT (BEAKER) 0 % 0-1 (test xfby=0966) POCT-GLUCOSE [id number] 21:19:00 Test Item Value Reference Range Comments POC-GLUCOSE METER (BEAKER) 193 mg/dL 70-110 TESTED AT [address] (test xxjn=1933) [place] [address] C. DIFFICILE GDH [id number] 19:42:00 Test Item Value Reference Range Comments CDT TOXIN (test Negative Negative yorw=[id number]) CDT GDH ANTIGEN (test Negative Negative No indication of Clostridium yney=[id number]) difficile infection and no colonization. Discontinue enteric isolation and therapy. Testing performed by [employer] Rapid Cassette Assay. For GDH, published sensitivity of the assay is 98.7% compared to cytotoxicity testing. For Toxin AB, published sensitivity is 87.8% and specificity 99.4% compared to cytotoxicity testing.Verification of kit performance was done by the [facility] Microbiology Lab prior to clinical use.POCT-GLUCOSE [id number] 18:07:00 Test Item Value Reference Range Comments POC-GLUCOSE METER (BEAKER) 134 mg/dL 70-110 TESTED AT [address] (test cjxe=9495) [place] [address] RAD, CHEST, 2 [id number] 13:37:00Reason for exam:->evaluate lungs for effusionFINAL REPORT [...] Verified Date/Time: 11/18/2018 13:37:10 Reading Location: [facility] Mammo Reading Room POCT- GLUCOSE [id number] 12:08:00 Test Item Value Reference Range Comments POC-GLUCOSE METER (BEAKER) 151 mg/dL 70-110 TESTED AT [address] (test nfva=8785) [place] [id number] POCT-GLUCOSE [id number] 08:44:00 Test Item Value Reference Range Comments POC-GLUCOSE METER (BEAKER) 153 mg/dL 70-110 TESTED AT [address] (test wmvn=9845) [place] [address] HEMOGLOBIN [id number] 08:17:00 Test Item Value Reference Range Comments HEMOGLOBIN A1C (BEAKER) (test jmnd=726) 10.9 % 4.3-6.1 URINALYSIS W/ REFLEX URINE [id number] 06:54:00 Test Item Value Reference Range Comments COLOR (BEAKER) (test yayg=604) Yellow CLARITY (BEAKER) (test keem=636) Hazy SPECIFIC GRAVITY UA (BEAKER) (test kdtd=461) 1.015 1.001-1.035 PH UA (BEAKER) (test nsnb=411) 5.0 5.0-8.0 PROTEIN UA (BEAKER) (test jeaa=362) 20 mg/dL Negative GLUCOSE UA (BEAKER) (test kgww=587) >1000 mg/dL Negative KETONES UA (BEAKER) (test hfaq=682) Negative Negative BILIRUBIN UA (BEAKER) (test hqtb=345) Negative Negative BLOOD UA (BEAKER) (test lwgp=492) Negative Negative NITRITE UA (BEAKER) (test nhct=730) Negative Negative LEUKOCYTE ESTERASE UA (BEAKER) (test xupn=599) Large Negative UROBILINOGEN UA (BEAKER) (test bjpo=960) 0.2 mg/dL 0.2-1.0 RBC UA (BEAKER) (test clks=871) 2 /HPF WBC UA (BEAKER) (test cusi=937) 12 /HPF BACTERIA (BEAKER) (test rbep=975) Rare SQUAMOUS EPITHELIAL (BEAKER) (test sdnw=546) 11 /HPF HYALINE CASTS (BEAKER) (test okyi=247) 3 /LPF SOURCE(BEAKER) (test xjwt=9609) HEPATITIS B [id number] 05:07:00 Test Item Value Reference Range Comments HEPATITIS B CORE TOTAL ANTIBODY (BEAKER) (test Nonreactive Nonreactive zori=954) HEPATITIS B SURFACE ANTIBODY (BEAKER) (test < mIU/mL <8.0 uxbx=127) HEPATITIS B SURFACE ANTIGEN (2) (BEAKER) (test Nonreactive Nonreactive kebc=0913) HEPATITIS C [id number] 04:53:00 Test Item Value Reference Range Comments HEPATITIS C ANTIBODY (BEAKER) (test yfye=079) Nonreactive Nonreactive TSH/FREE T4 IF [id number] 04:53:00 Test Item Value Reference Range Comments THYROID STIMULATING HORMONE (BEAKER) (test 3.05 uIU/mL 0.35-4.94 xrwh=069) [id number] 04:40:00 Test Item Value Reference Range Comments PROCALCITONIN (BEAKER) (test vmsu=9195) 0.07 ng/mL <0.05 SEPSIS RISK (ng/mL)Low: 0.05-0.50Intermediate: 0.51-2.00High: & gt;=[id number] 04:38:00 Test Item Value Reference Range Comments AMMONIA (BEAKER) (test uiul=703) 20 mol/L 18-72 [id number] 04:29:00 Test Item Value Reference Range Comments PHOSPHORUS (BEAKER) (test llkg=130) 4.2 mg/dL 2.3-4.7 [id number] 04:29:00 Test Item Value Reference Range Comments MAGNESIUM (BEAKER) (test yfqu=500) 1.7 mg/dL 1.6-2.6 BASIC METABOLIC [id number] 04:29:00 Test Item Value Reference Range Comments SODIUM (BEAKER) (test 135 meq/L 136-145 slsn=621) POTASSIUM (BEAKER) (test 3.7 meq/L 3.5-5.1 nwqz=466) CHLORIDE (BEAKER) (test 101 meq/L 98-107 qvzm=347) CO2 (BEAKER) (test 23 meq/L 22-29 uueg=195) BLOOD UREA NITROGEN 37 mg/dL 7-21 (BEAKER) (test tuwn=149) CREATININE (BEAKER) (test 1.77 mg/dL 0.57-1.25 ekpb=710) GLUCOSE RANDOM (BEAKER) 165 mg/dL 70-105 (test jkin=568) CALCIUM (BEAKER) (test 9.0 mg/dL 8.4-10.2 gjxz=702) EGFR (BEAKER) (test 37 mL/min/1.73 sq m ESTIMATED GFR IS NOT urvl=8065) ACCURATE CREATININE CLEARANCE IN PREDICTING GLOMERULAR FILTRATION RATE. ESTIMATED GFR IS NOT APPLICABLE FOR DIALYSIS PATIENTS. LIPID [id number] 04:29:00 Test Item Value Reference Range Comments TRIGLYCERIDES (BEAKER) (test vtfx=715) 92 mg/dL CHOLESTEROL (BEAKER) (test moqq=592) 123 mg/dL HDL CHOLESTEROL (BEAKER) (test bxcb=421) 36 mg/dL LDL CHOLESTEROL CALCULATED (BEAKER) (test 69 mg/dL zrwp=687) Triglyceride Reference Range: Low Risk <150 Borderline 150- 199 High Risk 200-499 Very High Risk >=500Cholesterol Reference Range: Low Risk <200 Borderline 200-239 High Risk > 240HDL Cholesterol Reference Range: Low Risk >=60 High Risk <40LDL Cholesterol Reference Range: Optimal <100 Near Optimal 100-129 Borderline 130-159 High 160-189 Very High >=190HEPATIC FUNCTION [id number] 04:29:00 Test Item Value Reference Range Comments TOTAL PROTEIN (BEAKER) (test umyt=247) 6.0 gm/dL 6.0-8.3 ALBUMIN (BEAKER) (test fquh=5067) 2.8 g/dL 3.5-5.0 BILIRUBIN TOTAL (BEAKER) (test ronr=819) 0.4 mg/dL 0.2-1.2 BILIRUBIN DIRECT (BEAKER) (test dwat=542) 0.2 mg/dL 0.1-0.5 ALKALINE PHOSPHATASE (BEAKER) (test sjlq=087) 112 U/L 40-150 AST (SGOT) (BEAKER) (test sezw=045) 16 U/L 5-34 ALT (SGPT) (BEAKER) (test wgqi=027) 11 U/L 6-55 [id number] 04:29:00 Test Item Value Reference Range Comments AMYLASE (BEAKER) (test phmj=395) 38 U/L 25-125 [id number] 04:29:00 Test Item Value Reference Range Comments LIPASE (BEAKER) (test issy=991) 47 U/L 8-78 LACTIC ACID, [id number] 03:58:00 Test Item Value Reference Range Comments LACTATE BLOOD VENOUS (2) 1.0 mmol/L 0.5-2.2 Specimen slightly hemolyzed (BEAKER) (test mwwm=5494) PROTHROMBIN [id number] 03:53:00 Test Item Value Reference Range Comments PROTIME (BEAKER) (test qwmu=941) 14.7 seconds 11.9-14.2 INR (BEAKER) (test ciwh=590) 1.2 <=5.9 Effective 07/17/2018: PT Reference Range ChangeNew: 11.9-14.2 Previous: 11.7- 14.7RECOMMENDED COUMADIN/WARFARIN INR THERAPY RANGESSTANDARD DOSE: 2.0-3.0 Includes: PROPHYLAXIS for venous thrombosis, systemic embolization; TREATMENT for venous thrombosis and/or pulmonary embolus.HIGH RISK: Target INR is2.5-3.5 for patients wiht mechanical heart valves.CBC W/PLT COUNT & AUTO [id number] 03:49:00 Test Item Value Reference Range Comments WHITE BLOOD CELL COUNT (BEAKER) (test ualm=785) 10.2 K/ L 3.5-10.5 RED BLOOD CELL COUNT (BEAKER) (test gqbr=044) 3.67 M/ L 4.63-6.08 HEMOGLOBIN (BEAKER) (test akjp=584) 9.9 GM/DL 13.7-17.5 HEMATOCRIT (BEAKER) (test oiiw=018) 31.3 % 40.1-51.0 MEAN CORPUSCULAR VOLUME (BEAKER) (test cnnh=290) 85.3 fL 79.0-92.2 MEAN CORPUSCULAR HEMOGLOBIN (BEAKER) (test 27.0 pg 25.7-32.2 alpl=855) MEAN CORPUSCULAR HEMOGLOBIN CONC (BEAKER) (test 31.6 GM/DL 32.3-36.5 fslg=008) RED CELL DISTRIBUTION WIDTH (BEAKER) (test 17.5 % 11.6-14.4 ujtt=453) PLATELET COUNT (BEAKER) (test wxpe=107) 219 K/CU MM 150-450 MEAN PLATELET VOLUME (BEAKER) (test irft=453) 10.9 fL 9.4-12.4 NUCLEATED RED BLOOD CELLS (BEAKER) (test 0 /100 WBC 0-0 ajzu=258) NEUTROPHILS RELATIVE PERCENT (BEAKER) (test 68 % tdak=295) LYMPHOCYTES RELATIVE PERCENT (BEAKER) (test 20 % gryb=841) MONOCYTES RELATIVE PERCENT (BEAKER) (test 10 % pchc=934) EOSINOPHILS RELATIVE PERCENT (BEAKER) (test 1 % lvgj=790) BASOPHILS RELATIVE PERCENT (BEAKER) (test 1 % huzl=303) NEUTROPHILS ABSOLUTE COUNT (BEAKER) (test 6.87 K/ L 1.78-5.38 amwi=572) LYMPHOCYTES ABSOLUTE COUNT (BEAKER) (test 2.02 K/ L 1.32-3.57 rhvj=533) MONOCYTES ABSOLUTE COUNT (BEAKER) (test 1.04 K/ L 0.30-0.82 vghj=226) EOSINOPHILS ABSOLUTE COUNT (BEAKER) (test 0.14 K/ L 0.04-0.54 glup=484) BASOPHILS ABSOLUTE COUNT (BEAKER) (test 0.06 K/ L 0.01-0.08 cnno=808) IMMATURE GRANULOCYTES-RELATIVE PERCENT (BEAKER) 0 % 0-1 (test wloz=6891) POCT-GLUCOSE [id number] 22:57:00 Test Item Value Reference Range Comments POC-GLUCOSE METER (BEAKER) 177 mg/dL 70-110 TESTED AT [facility] [address] [facility] (test nsyh=8333) [facility] [id number]
[2019-01-27 15:21] VITALS: BMI 19.5
[2019-01-27] MEDS ORDERED: FORMULATION-R RECTAL 30GM PR PRN (17:16)
[2019-01-27] MEDS ORDERED: SODIUM CHLORIDE 0.9% 10ML INJ IV PRN (17:16)
[2019-01-27] MEDS ORDERED: ACETAMINOPHEN 500 MG TAB PO PRN (17:16)
[2019-01-27] MEDS ORDERED: GLUCAGON 1 MG/VIAL IM PRN ×2 (17:16)
[2019-01-27] MEDS ORDERED: BACLOFEN 10 MG TAB PO PRN (17:16)
[2019-01-27] MEDS ORDERED: MAGNES/ALUMIN/SIMET 30ML UCUP PO PRN (17:16)
[2019-01-27] MEDS ORDERED: guaiFENesin 100 MG/5 ML UCUP PO PRN (17:16)
[2019-01-27] MEDS ORDERED: D50W 25 GM/50 ML SYRINGE/VIAL IV PRN ×2 (17:16)
[2019-01-27] MEDS ORDERED: ONDANSETRON 4 MG (ODT) TAB PO PRN (17:16)
[2019-01-27] MEDS: INSULIN -REGULAR HUMAN 50 UNIT/0.5 ML ML SQ SCH (21:00)
[2019-01-27] MEDS: LACTULOSE 20 GM/30 ML UCUP PO SCH (22:44)
[2019-01-27] MEDS: CEFEPIME/SWI 1gm 10 ML IVP SCH (22:45)
[2019-01-27] MEDS: PROMOD 30 ML DOSE PO SCH (22:46)
[2019-01-27] MEDS: Rifaximin 550 MG Tab PO SCH (22:46)
[2019-01-27] MEDS: GLUCERNA SHAKE 237 ML CAN PO SCH (22:48)
[2019-01-28] MEDS: LACTULOSE 20 GM/30 ML UCUP PO SCH ×4 (01:43→13:00)
--- NOTE | 2019-01-28 04:27 | HP ---
Date of Admission: 01/27/2019 Chief Complaint: Weakness and altered mental status. History Of Present Illness: An 83-year-old male patient with cirrhosis of liver , recent admission to medical floor with hepatic encephalopathy, was in rehab floor improving, until last 3-4 days his condition has deteriorated and that started probably around the time that he had EGD done. He did not eat or drink much for 2-3 days or so around the time when he had EGD and after that his condition continued to deteriorate. Yesterday, his condition on rehab floor was lot worse with increasing weakness and altered mental status. Routine blood work, CBC, chemistry was unremarkable. Urinalysis showed small amount of blood, but it is important to keep in mind that this was catheterized specimen, so it could be trauma from the catheter. It was negative for WBC, leukocyte esterase, etc. Empiric antibiotic cefepime was started yesterday thinking about possibility of subacute bacterial peritonitis. Dr. Patrick was consulted. There was no radiologist available yesterday for paracentesis, so after talking to Dr. Patrick, we did start him on empiric antibiotics and after receiving 2 doses of antibiotics, 1 yesterday afternoon and 1 yesterday evening , his condition had started to show some improvement. This morning when I saw him, he was looking better and subsequently rehab floor notified me about him not able to do therapy with current clinical condition, so decision was made to transfer him to medical floor for further management since he is not going to be able to participate with 3 hours of rehab therapy. I did go back to medical floor this evening to check on him and this evening his condition was more or less same as what it was when I saw him this morning. Allergies: PENICILLIN. Medications: List reviewed. Review of Systems: GI: As mentioned above. TRAIN STATION AGENT: As mentioned above. Constitutional: As mentioned above. All other systems reviewed and negative. Family History: Mother had hypertension. Past Surgical History: Significant for cataract surgery, coronary artery bypass surgery, cholecystectomy, hernia repair, back surgery. Past Medical History: Significant for cirrhosis of liver, type 2 diabetes mellitus, hypertension, mixed hyperlipidemia, coronary artery disease, anemia, hypomagnesemia, COPD, gastroesophageal reflux disease, biliary stricture, benign prostatic hypertrophy, depression, insomnia, gout. Social History: Negative for use of alcohol. Prior history of smoking, not at present time. Physical Examination: Vital Signs: Height 5 feet 10 inches, weight 136 pounds, temperature 97.4, pulse 96, respiratory rate 18, blood pressure 90/66, oxygen saturation 97%. General: Patient appears sleepy, wakes up. Denies any specific complaints and goes back to sleep. HEENT: Head atraumatic, normocephalic. Conjunctivae nonerythematous. Sclerae white. Mouth, no thrush or edema noted. Ears/Nose, no mass, lesion, discharge noted. Neck: Supple. No JVD, lymph nodes, bruit, thyromegaly noted. Lungs: Bilateral good equal air entry. Clear to auscultation. No rhonchi. No rales. Heart: Normal heart sounds, no murmur or gallop. Abdomen: Small amount of ascites present. No guarding, rigidity, or tenderness. Extremities: No leg edema. No calf tenderness. Skin: No rash, ulcer, cellulitis. Lymphatics: No lymph node enlargement in neck, supraclavicular, infraclavicular region. Neuro: No focal neurological deficit. Chest: Unremarkable. External Genitalia: Deferred. Rectal: Deferred. Laboratory Data: Yesterday's blood work results reviewed. White count 7.2, hemoglobin 13, platelets 225, sodium 136, potassium 4, chloride 103, bicarb 25, BUN 54, creatinine 1.61, ammonia level 86. CAT scan of the head done today, was negative for any acute intracranial changes. Impression: 1. Hepatic encephalopathy. 2. Rule out subacute bacterial peritonitis. 3. Cirrhosis of liver with ascites. 4. Coronary artery disease. 5. Type 2 diabetes mellitus. 6. Mixed hyperlipidemia. 7. Hypertension. 8. Gastroesophageal reflux disease. 9. Anemia. 10. Benign prostatic hypertrophy. 11. Generalized weakness. 12. Debility. Plan: Admit patient to the hospital for further evaluation and management of this problem. The patient was transferred from rehab floor to medical floor with worsening of his medical condition. We will continue current medications including empiric antibiotics, which is cefepime. Continue lactulose and rifaximin. We will consult Dr. Patrick from [facility], consult Physical Therapy. SCD was ordered for DVT prophylaxis. I will see him tomorrow for followup. Continue Protonix. KAITLYNN/MODL Voice ID: [id number] MTDD
[2019-01-28 05:45] LABS: Basophils % 0.4 % (0-1.3); Hematocrit 39.9 % (39.6-49.0); Lymphocytes % 18.5 % (15.3-44.8); MPV 9.2 fL (7.6-11.3); RBC Red Blood Cell Count 4.45 M/uL (4.33-5.43)
[2019-01-28 06:04] LABS: Albumin 2.1 g/dL (3.4-5.0); Bilirubin Total 0.5 mg/dL (0.2-1.0); Potassium 3.8 mmol/L (3.5-5.1); Protein, Total 6.3 g/dL (6.4-8.2)
[2019-01-28] MEDS ORDERED: PANTOPRAZOLE 40MG TABLET PO SCH (06:30)
[2019-01-28] MEDS: INSULIN -REGULAR HUMAN 50 UNIT/0.5 ML ML SQ SCH ×2 (07:30→11:30)
[2019-01-28 07:38] LABS: Platelet Estimate ADEQ; Urine White Blood Cell Casts OK
[2019-01-28 07:39] LABS: Anisocytosis 1+; Blood Morphology Comment NOTED (NOT SEEN); Ovalocytes 1+
[2019-01-28] MEDS ORDERED: INSULIN GLARGINE 100 UNITS/ML SQ SCH (08:00)
[2019-01-28] MEDS ORDERED: FINASTERIDE 5 MG TAB PO SCH (09:00)
[2019-01-28] MEDS ORDERED: POTASSIUM 25 MEQ EFFERV TAB PO ONE (09:00)
[2019-01-28] MEDS ORDERED: MAGNESIUM OXIDE 400 MG TAB PO SCH (09:00)
[2019-01-28] MEDS: GLUCERNA SHAKE 237 ML CAN PO SCH (09:00)
[2019-01-28] MEDS ORDERED: allopurinoL 300 MG TAB PO SCH (09:00)
[2019-01-28] MEDS ORDERED: CYANOCOBALAMIN 1,000 MCG TAB PO SCH (09:00)
[2019-01-28] MEDS ORDERED: FUROSEMIDE 20 MG TABLET PO SCH (09:00)
[2019-01-28] MEDS: ENSURE PUDDING 4 OZ CUP PO SCH ×2 (09:00→14:00)
[2019-01-28] MEDS ORDERED: ASPIRIN EC 81 MG TAB PO SCH (09:00)
[2019-01-28] MEDS ORDERED: NA CHLORIDE 0.9% 500 ML ONE (09:10)
[2019-01-28] MEDS: CEFEPIME/SWI 1gm 10 ML IVP SCH (09:48)
[2019-01-28] MEDS: Rifaximin 550 MG Tab PO SCH (11:32)
[2019-01-28] MEDS: PROMOD 30 ML DOSE PO SCH (11:34)
[2019-01-28] MEDS ORDERED: D5 0.9 NS 1,000 ML IV SCH (12:00)
[2019-01-28] MEDS ORDERED: AA 5%/D20W/ELECTROLYTES-TPN 2,000 ML, Lipids 20% 250 ML with MULTIVITAMINS INJ 10 ML IV SCH ×3 (17:00)
[2019-01-28 17:32] VITALS: BP 106/60; TEMP 97.1
[2019-01-28 18:20] VITALS: O2SAT 98
--- NOTE | 2019-01-29 04:01 | DS ---
Date of Discharge: 01/28/2019 [facility] Physical Examination: HEENT: Unremarkable. Lungs: Clear to auscultation. Heart: Heart sounds normal. Abdomen: Soft. Bowel sounds normal. No guarding, rigidity, tenderness, or distention. Extremities: No leg edema. Laboratory Data: White count today 10.7, hemoglobin 13, platelets 204. Sodium 139, potassium 3.8, c hloride 105, bicarb 26, BUN 65, creatinine 1.91, glucose 114. SGOT 29, SGPT 35, alkaline phosphatase 214, ammonia level today 83. Yesterday, ammonia level was 107. Albumin level 2.1. Hospital Course: An 83-year-old male patient, who was transferred yesterday from inpatient rehab kash or to medical floor because of worsening of his condition. Please see dictated H and P for more info rmation. After patient was brought to medical floor, we continued his therapy order that he was gett ing on the rehab floor, which included his IV antibiotics cefepime, lactulose, and Xifaxan. I did se e him yesterday evening and his condition yesterday evening was unchanged from yesterday morning. Th is morning when I saw him, his condition was worse. His was present with him at bedside and wif vickie was trying to feed him breakfast and he would end up keeping small bite of food in his mouth and wa s not able to swallow and did not know actually what to do. He was not able to follow simple command s, appeared extremely weak, not in any respiratory distress. After observing this, I informed the wi fe not to feed him anymore as he is at risk of aspiration and I informed nursing staff later on to ke ep him n.p.o. We entertain possibility of putting a Dobhoff tube, but if we do put this tube, we are afraid that almost certainly he will pull the tube out and in order for us to prevent him from pulli ng tube out we will have to apply restraints to his hands and I was told that hospital policy does no t allow us to use any hand restraints on the floor. Other possibility that we entertain is putting P ICC line and start him on TPN and this was ordered today. Patient's was asked to come in to see me at office this afternoon. She came in and meanwhile, I talked to her earlier on the phone also a fter leaving the hospital and recommended that with the patient's worsening condition, I would recomm end for us to transfer him to [place] where his liver specialist is and she was agreeable and we init iated the transfer process and I did talk to hospitalist as well as plate cleaner on-call at [facility] in [place] and details were discussed with them. The patient was accepted for transfer, w giovany came to office. Details were discussed with her. Overall, prognosis is poor. A liver specialis t in [place] already informed me that the patient is not a candidate for liver transplant, not sure w hether he will be a candidate for TIPS procedure or not and they are not sure what else they can do f or him in [place], but they definitely are willing to accept him and evaluate him, which we are grate ful about it, because I have informed the patient's that here at our hospital, we have done ever ything that we could possibly and in spite of that his condition is deteriorating, so I definitely wo uld like for him to go to [place] and see if there is anything that they can do differently for him, which might actually help his condition. Otherwise, I am afraid deterioration in his condition with liver disease is to be expected. All these details were discussed with today when she came into office with her son. The patient's spironolactone was discontinued 2-3 days ago and as of today, I have discontinued his furosemide as well with worsening of the renal function. I did discuss details with Dr. Patrick also this morning and he is in agreement with transfer process as well. This aftern oon, patient was accepted and once the bed was available, arrangements were made for him to be transf erred via ground ambulance to [place] at [facility] for higher level of care. Final Diagnoses: 1.Hepatic encephalopathy. 2.Cirrhosis of liver with ascites. 3.Rule out subacute bacterial peritonitis. 4.Type 2 diabetes mellitus, uncontrolled. 5.Mixed hyperlipidemia. 6.Coronary artery disease. 7.Anemia. 8.Hypomagnesemia. 9.Chronic obstructive pulmonary disease. 10.Gastroesophageal reflux disease. 11.Biliary stricture. 12.Benign prostatic hypertrophy. 13.Depression. 14.Gout. 15.Hypertension. 16.Acute kidney injury. KAITLYNN/MODL Voice ID: [id number] Report ID: [id number]
== END 2019-01-28 18:20 | disposition short-term general hospital (02) | DRG 441 ==
LOC: 2ND 15:08
PROVIDERS: ADMIT Internal Medicine; ATTEND Internal Medicine
DX: K72.90 Hepatic failure, unspecified without coma (principal); K65.8 Other peritonitis; K83.1 Obstruction of bile duct; R18.8 Other ascites; N17.9 Acute kidney failure, unspecified; K74.60 Unspecified cirrhosis of liver; B96.89 Other specified bacterial agents as the cause of diseases classified elsewhere; E11.65 Type 2 diabetes mellitus with hyperglycemia; E78.2 Mixed hyperlipidemia; I25.10 Atherosclerotic heart disease of native coronary artery without angina pectoris; D64.9 Anemia, unspecified; E83.42 Hypomagnesemia; J44.9 Chronic obstructive pulmonary disease, unspecified; N40.0 Benign prostatic hyperplasia without lower urinary tract symptoms; F32.9 Major depressive disorder, single episode, unspecified; M10.9 Gout, unspecified; I10 Essential (primary) hypertension; Z88.0 Allergy status to penicillin
CPT/HCPCS: 36415; 80053; 82140; 82947; 83735; 85025; J0692; J1815; J7040; J7042

== ENCOUNTER 2019-03-04 09:55 | Inpatient (IN) | payer OTHER, BC ==
--- OUTSIDE RECORDS SUMMARY | 2019-03-04 10:03 | XMS REPORT ---
:1935 [facility] [address] [place] [address] Dr. Black [address] [place] [address] Care Team Providers Name Role Phone MARCKJOHN Horner Unavailable Unavailable AMILCAR, RISE J Unavailable Unavailable ZINDHARESH CHAN Unavailable Unavailable Problems This patient has no [...] Comments Text Results Atomic Results Result Comments POCT-GLUCOSE METER 2019-02-18 08:59:00 Test Item Value Reference Range Comments POC-GLUCOSE METER (BEAKER) 94 mg/dL 70-110 : TESTED AT [address] (test oxde=1375) [place], [address]: Motorboat Mechanic Inboard/Outboard/Early [employer] Start Teacher [id number] for FILIBERTO AVENDAÑO POCT-GLUCOSE [id number] 06:07:00 Test Item Value Reference Range Comments POC-GLUCOSE METER (BEAKER) 113 mg/dL 70-110 : TESTED AT [address] (test kjbv=7000) [facility], [place], [address]: Motorboat Mechanic Inboard/Outboard/Early Head Start Teacher [id number] for SANTHOSH SANDOVAL [id number] 05:11:00 Test Item Value Reference Range Comments PHOSPHORUS (BEAKER) (test zqaq=034) 3.4 mg/dL 2.3-4.7 [id number] 05:11:00 Test Item Value Reference Range Comments MAGNESIUM (BEAKER) (test odav=826) 1.9 mg/dL 1.6-2.6 BASIC METABOLIC [id number] 05:11:00 Test Item Value Reference Range Comments SODIUM (BEAKER) (test 140 meq/L 136-145 eass=906) POTASSIUM (BEAKER) (test 4.3 meq/L 3.5-5.1 jqgp=313) CHLORIDE (BEAKER) (test 108 meq/L 98-107 btcy=757) CO2 (BEAKER) (test 26 meq/L 22-29 rsry=365) BLOOD UREA NITROGEN 51 mg/dL 7-21 (BEAKER) (test ywmo=459) CREATININE (BEAKER) (test 1.07 mg/dL 0.57-1.25 phnd=077) GLUCOSE RANDOM (BEAKER) 134 mg/dL 70-105 (test nroo=718) CALCIUM (BEAKER) (test 9.5 mg/dL 8.4-10.2 ilox=111) EGFR (BEAKER) (test 66 mL/min/1.73 sq m ESTIMATED GFR IS NOT wani=3850) ACCURATE CREATININE CLEARANCE IN PREDICTING GLOMERULAR FILTRATION RATE. ESTIMATED GFR IS NOT APPLICABLE FOR DIALYSIS PATIENTS. B-TYPE NATRIURETIC FACTOR (BNP)2019-02-18 05:10:00 Test Item Value Reference Range Comments B-TYPE NATRIURETIC PEPTIDE (BEAKER) (test 445 pg/mL 0-100 ylyp=975) CALCIUM, [id number] 05:02:00 Test Item Value Reference Range Comments CALCIUM IONIZED (BEAKER) (test mntv=338) 1.19 mmol/L 1.12-1.27 PH, BLOOD (BEAKER) (test kemn=8344) 7.45 PROTHROMBIN [id number] 05:01:00 Test Item Value Reference Range Comments PROTIME (BEAKER) (test rilu=329) 16.0 seconds 11.9-14.2 INR (BEAKER) (test rpgv=816) 1.3 <=5.9 Effective 07/17/2018: PT Reference Range ChangeNew: 11.9-14.2 Previous: 11.7- 14.7RECOMMENDED COUMADIN/WARFARIN INR THERAPY RANGESSTANDARD DOSE: 2.0-3.0 Includes: PROPHYLAXIS for venous thrombosis, systemic embolization; TREATMENT for venous thrombosis and/or pulmonary embolus.HIGH RISK: Target INR is2.5-3.5 for patients wiht mechanical heart valves.While on warfarin.CBC W/PLT COUNT &amp ; AUTO [id number] 04:51:00 Test Item Value Reference Range Comments WHITE BLOOD CELL COUNT (BEAKER) (test qzmo=084) 5.4 K/ L 3.5-10.5 RED BLOOD CELL COUNT (BEAKER) (test ifcv=721) 3.17 M/ L 4.63-6.08 HEMOGLOBIN (BEAKER) (test hryv=384) 9.3 GM/DL 13.7-17.5 HEMATOCRIT (BEAKER) (test jolt=885) 28.9 % 40.1-51.0 MEAN CORPUSCULAR VOLUME (BEAKER) (test tlxk=572) 91.2 fL 79.0-92.2 MEAN CORPUSCULAR HEMOGLOBIN (BEAKER) (test 29.3 pg 25.7-32.2 jfgf=852) MEAN CORPUSCULAR HEMOGLOBIN CONC (BEAKER) (test 32.2 GM/DL 32.3-36.5 ypch=257) RED CELL DISTRIBUTION WIDTH (BEAKER) (test 18.9 % 11.6-14.4 mmlq=236) PLATELET COUNT (BEAKER) (test fgyn=744) 217 K/CU MM 150-450 MEAN PLATELET VOLUME (BEAKER) (test iaax=501) 12.6 fL 9.4-12.4 NUCLEATED RED BLOOD CELLS (BEAKER) (test 0 /100 WBC 0-0 omdy=610) NEUTROPHILS RELATIVE PERCENT (BEAKER) (test 56 % qkap=408) LYMPHOCYTES RELATIVE PERCENT (BEAKER) (test 27 % qdon=702) MONOCYTES RELATIVE PERCENT (BEAKER) (test 12 % fcpr=109) EOSINOPHILS RELATIVE PERCENT (BEAKER) (test 3 % glpn=435) BASOPHILS RELATIVE PERCENT (BEAKER) (test 2 % pvtl=022) NEUTROPHILS ABSOLUTE COUNT (BEAKER) (test 3.05 K/ L 1.78-5.38 pkju=827) LYMPHOCYTES ABSOLUTE COUNT (BEAKER) (test 1.46 K/ L 1.32-3.57 gjtd=490) MONOCYTES ABSOLUTE COUNT (BEAKER) (test 0.64 K/ L 0.30-0.82 aioc=959) EOSINOPHILS ABSOLUTE COUNT (BEAKER) (test 0.15 K/ L 0.04-0.54 wymh=840) BASOPHILS ABSOLUTE COUNT (BEAKER) (test 0.09 K/ L 0.01-0.08 dfjp=152) IMMATURE GRANULOCYTES-RELATIVE PERCENT (BEAKER) 0 % 0-1 (test uyzx=6834) POCT-GLUCOSE [id number] 00:04:00 Test Item Value Reference Range Comments POC-GLUCOSE METER (BEAKER) 183 mg/dL 70-110 : TESTED AT [address] (test hyiw=3021) [facility], [place], [address]: Motorboat Mechanic Inboard/Outboard/Early Head Start Teacher [id number] for SANTHOSH SANDOVAL POCT-GLUCOSE [id number] 22:21:00 Test Item Value Reference Range Comments POC-GLUCOSE METER (BEAKER) 166 mg/dL 70-110 : TESTED AT [address] (test yhxz=6283) [facility], [place], [address]: Motorboat Mechanic Inboard/Outboard/Early Head Start Teacher [id number] for SATURNINO BEN POCT-GLUCOSE [id number] 17:07:00 Test Item Value Reference Range Comments POC-GLUCOSE METER (BEAKER) 169 mg/dL 70-110 : TESTED AT [address] (test vhlu=5943) [facility], [place], [address]: Motorboat Mechanic Inboard/Outboard/Early Head Start Teacher [id number] for SATURNINO BEN POCT-GLUCOSE [id number] 15:00:00 Test Item Value Reference Range Comments POC-GLUCOSE METER (BEAKER) 139 mg/dL 70-110 : TESTED AT [address] (test aoqr=6514) [facility], [place], [address]: Motorboat Mechanic Inboard/Outboard/Early Head Start Teacher [id number] for SATURNINO BEN CALCIUM, [id number] 04:44:00 Test Item Value Reference Range Comments CALCIUM IONIZED (BEAKER) (test vfsj=045) 1.18 mmol/L 1.12-1.27 PH, BLOOD (BEAKER) (test zjrb=2875) 7.48 [id number] 04:07:00 Test Item Value Reference Range Comments PHOSPHORUS (BEAKER) (test wjxi=847) 2.8 mg/dL 2.3-4.7 [id number] 04:07:00 Test Item Value Reference Range Comments MAGNESIUM (BEAKER) (test ynrn=778) 1.8 mg/dL 1.6-2.6 COMPREHENSIVE METABOLIC [id number] 04:07:00 Test Item Value Reference Range Comments TOTAL PROTEIN (BEAKER) 5.6 gm/dL 6.0-8.3 (test rysw=547) ALBUMIN (BEAKER) (test 3.2 g/dL 3.5-5.0 vzjh=4572) ALKALINE PHOSPHATASE 133 U/L 40-150 (BEAKER) (test mbef=097) BILIRUBIN TOTAL (BEAKER) 1.0 mg/dL 0.2-1.2 (test yzie=048) SODIUM (BEAKER) (test 141 meq/L 136-145 hgxf=788) POTASSIUM (BEAKER) (test 4.4 meq/L 3.5-5.1 nxrk=570) CHLORIDE (BEAKER) (test 109 meq/L 98-107 rpef=053) CO2 (BEAKER) (test 25 meq/L 22-29 alwf=213) BLOOD UREA NITROGEN 51 mg/dL 7-21 (BEAKER) (test xyak=868) CREATININE (BEAKER) (test 1.03 mg/dL 0.57-1.25 oyon=840) GLUCOSE RANDOM (BEAKER) 96 mg/dL 70-105 (test hgab=341) CALCIUM (BEAKER) (test 9.4 mg/dL 8.4-10.2 awjw=799) AST (SGOT) (BEAKER) (test 22 U/L 5-34 pota=775) ALT (SGPT) (BEAKER) (test 19 U/L 6-55 kmli=178) EGFR (BEAKER) (test 69 mL/min/1.73 sq m ESTIMATED GFR IS NOT vbau=0077) ACCURATE CREATININE CLEARANCE IN PREDICTING GLOMERULAR FILTRATION RATE. ESTIMATED GFR IS NOT APPLICABLE FOR DIALYSIS PATIENTS. BASIC METABOLIC [id number] 04:07:00 Test Item Value Reference Range Comments SODIUM (BEAKER) (test 141 meq/L 136-145 nzww=715) POTASSIUM (BEAKER) (test 4.4 meq/L 3.5-5.1 zsuz=060) CHLORIDE (BEAKER) (test 109 meq/L 98-107 pdeb=839) CO2 (BEAKER) (test 25 meq/L 22-29 oftd=349) BLOOD UREA NITROGEN 51 mg/dL 7-21 (BEAKER) (test tznn=529) CREATININE (BEAKER) (test 1.03 mg/dL 0.57-1.25 gmqh=533) GLUCOSE RANDOM (BEAKER) 96 mg/dL 70-105 (test nouq=022) CALCIUM (BEAKER) (test 9.4 mg/dL 8.4-10.2 jykg=632) EGFR (BEAKER) (test 69 mL/min/1.73 sq m ESTIMATED GFR IS NOT fqmo=1312) ACCURATE CREATININE CLEARANCE IN PREDICTING GLOMERULAR FILTRATION RATE. ESTIMATED GFR IS NOT APPLICABLE FOR DIALYSIS PATIENTS. PROTHROMBIN [id number] 03:57:00 Test Item Value Reference Range Comments PROTIME (BEAKER) (test gkjy=185) 15.9 seconds 11.9-14.2 INR (BEAKER) (test azlb=466) 1.3 <=5.9 Effective 07/17/2018: PT Reference Range ChangeNew: 11.9-14.2 Previous: 11.7- 14.7RECOMMENDED COUMADIN/WARFARIN INR THERAPY RANGESSTANDARD DOSE: 2.0-3.0 Includes: PROPHYLAXIS for venous thrombosis, systemic embolization; TREATMENT for venous thrombosis and/or pulmonary embolus.HIGH RISK: Target INR is2.5-3.5 for patients wiht mechanical heart valves.While on warfarin.CBC W/PLT COUNT &amp ; AUTO [id number] 03:50:00 Test Item Value Reference Range Comments WHITE BLOOD CELL COUNT (BEAKER) (test azlk=256) 7.1 K/ L 3.5-10.5 RED BLOOD CELL COUNT (BEAKER) (test hhds=107) 3.01 M/ L 4.63-6.08 HEMOGLOBIN (BEAKER) (test iwcp=755) 8.8 GM/DL 13.7-17.5 HEMATOCRIT (BEAKER) (test fdsi=948) 27.3 % 40.1-51.0 MEAN CORPUSCULAR VOLUME (BEAKER) (test kmtf=588) 90.7 fL 79.0-92.2 MEAN CORPUSCULAR HEMOGLOBIN (BEAKER) (test 29.2 pg 25.7-32.2 nqmx=085) MEAN CORPUSCULAR HEMOGLOBIN CONC (BEAKER) (test 32.2 GM/DL 32.3-36.5 bshe=801) RED CELL DISTRIBUTION WIDTH (BEAKER) (test 19.2 % 11.6-14.4 lnkx=902) PLATELET COUNT (BEAKER) (test lgfe=994) 198 K/CU MM 150-450 MEAN PLATELET VOLUME (BEAKER) (test ofce=657) 12.2 fL 9.4-12.4 NUCLEATED RED BLOOD CELLS (BEAKER) (test 0 /100 WBC 0-0 iinv=640) NEUTROPHILS RELATIVE PERCENT (BEAKER) (test 59 % repy=354) LYMPHOCYTES RELATIVE PERCENT (BEAKER) (test 26 % vwcx=764) MONOCYTES RELATIVE PERCENT (BEAKER) (test 12 % uhym=795) EOSINOPHILS RELATIVE PERCENT (BEAKER) (test 3 % fioa=833) BASOPHILS RELATIVE PERCENT (BEAKER) (test 1 % eukb=705) NEUTROPHILS ABSOLUTE COUNT (BEAKER) (test 4.19 K/ L 1.78-5.38 vtso=040) LYMPHOCYTES ABSOLUTE COUNT (BEAKER) (test 1.82 K/ L 1.32-3.57 ugcg=749) MONOCYTES ABSOLUTE COUNT (BEAKER) (test 0.82 K/ L 0.30-0.82 doeb=239) EOSINOPHILS ABSOLUTE COUNT (BEAKER) (test 0.20 K/ L 0.04-0.54 fqdl=577) BASOPHILS ABSOLUTE COUNT (BEAKER) (test 0.04 K/ L 0.01-0.08 mgmx=327) IMMATURE GRANULOCYTES-RELATIVE PERCENT (BEAKER) 0 % 0-1 (test okch=4773) CT, BRAIN, WITHOUT [id number] 00:15:00Anesthesia:->NoneFINAL REPORT CT Head without contrast CLINICAL HISTORY: Encephalopathy TECHNIQUE: Contiguous axial images through the head without contrast. This exam was performed according to the departmental dose optimization program which includes automated exposure control, adjustment of the mA and/or kV according to the patient size, and/or use of an iterative reconstruction technique. COMPARISON: None FINDINGS: There is no CT evidence of acute infarct or intracranial hemorrhage. There is periventricular and subcortical white matter hypodensity which is nonspecific but compatible with chronic microvascular ischemic change. There are atherosclerotic calcifications of the intracranial circulation. There is generalized parenchymal volume loss without hydrocephalus, midline shift, or apparent mass effect. Basilar cisterns are patent. There are no extra-axial fluid collections. The skull is intact. The visualized paranasal sinuses are well-aerated. Intraorbital contents are unremarkable. IMPRESSION: No CT evidence of acute intracranial abnormality. If persistent clinical concern recommend further evaluation with MRI brain. Signed: Nithya Meza Verified Date/Time: 02/17/2019 00:15:10 POCT-GLUCOSE [id number] 22:45:00 Test Item Value Reference Range Comments POC-GLUCOSE METER (BEAKER) 104 mg/dL 70-110 : TESTED AT [address] (test bllr=9956) [facility], [place], [address]: Motorboat Mechanic Inboard/Outboard/Early Head Start Teacher [id number] for GUS SANTOS POCT-GLUCOSE [id number] 19:11:00 Test Item Value Reference Range Comments POC-GLUCOSE METER (BEAKER) 109 mg/dL 70-110 : TESTED AT [address] (test aufl=0494) [facility], [place], [address]: Motorboat Mechanic Inboard/Outboard/Early Head Start Teacher [id number] for BEN MATAMOROS OCCULT BLOOD, [id number] 07:16:00 Test Item Value Reference Range Comments FECAL OCCULT BLOOD (BEAKER) (test tepj=424) Negative Negative POCT-GLUCOSE [id number] 07:02:00 Test Item Value Reference Range Comments POC-GLUCOSE METER (BEAKER) 141 mg/dL 70-110 : TESTED AT [address] (test hoso=7328) [facility], [place], [address]: Motorboat Mechanic Inboard/Outboard/Early Head Start Teacher [id number] for BREANNE SHRESTHA CALCIUM, [id number] 05:49:00 Test Item Value Reference Range Comments CALCIUM IONIZED (BEAKER) (test zclg=817) 1.22 mmol/L 1.12-1.27 PH, BLOOD (BEAKER) (test eiua=9928) 7.42 B-TYPE NATRIURETIC FACTOR (BNP)2019-02-16 05:32:00 Test Item Value Reference Range Comments B-TYPE NATRIURETIC PEPTIDE (BEAKER) (test 413 pg/mL 0-100 guiq=959) [id number] 05:30:00 Test Item Value Reference Range Comments PHOSPHORUS (BEAKER) (test inde=114) 2.6 mg/dL 2.3-4.7 [id number] 05:30:00 Test Item Value Reference Range Comments MAGNESIUM (BEAKER) (test epao=620) 1.9 mg/dL 1.6-2.6 BASIC METABOLIC [id number] 05:30:00 Test Item Value Reference Range Comments SODIUM (BEAKER) (test 141 meq/L 136-145 qfte=596) POTASSIUM (BEAKER) (test 4.3 meq/L 3.5-5.1 eudq=926) CHLORIDE (BEAKER) (test 107 meq/L 98-107 nwyi=612) CO2 (BEAKER) (test 26 meq/L 22-29 qsgw=000) BLOOD UREA NITROGEN 54 mg/dL 7-21 (BEAKER) (test stib=550) CREATININE (BEAKER) (test 1.36 mg/dL 0.57-1.25 ghcg=574) GLUCOSE RANDOM (BEAKER) 151 mg/dL 70-105 (test llwy=099) CALCIUM (BEAKER) (test 9.7 mg/dL 8.4-10.2 shrc=601) EGFR (BEAKER) (test 50 mL/min/1.73 sq m ESTIMATED GFR IS NOT lgor=9358) ACCURATE CREATININE CLEARANCE IN PREDICTING GLOMERULAR FILTRATION RATE. ESTIMATED GFR IS NOT APPLICABLE FOR DIALYSIS PATIENTS. PROTHROMBIN [id number] 05:20:00 Test Item Value Reference Range Comments PROTIME (BEAKER) (test chrj=469) 15.7 seconds 11.9-14.2 INR (BEAKER) (test aovg=649) 1.3 <=5.9 Effective 07/17/2018: PT Reference Range ChangeNew: 11.9-14.2 Previous: 11.7- 14.7RECOMMENDED COUMADIN/WARFARIN INR THERAPY RANGESSTANDARD DOSE: 2.0-3.0 Includes: PROPHYLAXIS for venous thrombosis, systemic embolization; TREATMENT for venous thrombosis and/or pulmonary embolus.HIGH RISK: Target INR is2.5-3.5 for patients wiht mechanical heart valves.While on warfarin.CBC W/PLT COUNT &amp ; AUTO [id number] 05:15:00 Test Item Value Reference Range Comments WHITE BLOOD CELL COUNT (BEAKER) (test qnee=549) 9.1 K/ L 3.5-10.5 RED BLOOD CELL COUNT (BEAKER) (test dfsg=540) 3.09 M/ L 4.63-6.08 HEMOGLOBIN (BEAKER) (test idjx=321) 9.0 GM/DL 13.7-17.5 HEMATOCRIT (BEAKER) (test ekhk=942) 28.3 % 40.1-51.0 MEAN CORPUSCULAR VOLUME (BEAKER) (test scbe=752) 91.6 fL 79.0-92.2 MEAN CORPUSCULAR HEMOGLOBIN (BEAKER) (test 29.1 pg 25.7-32.2 afis=833) MEAN CORPUSCULAR HEMOGLOBIN CONC (BEAKER) (test 31.8 GM/DL 32.3-36.5 stfu=704) RED CELL DISTRIBUTION WIDTH (BEAKER) (test 19.5 % 11.6-14.4 kjaw=085) PLATELET COUNT (BEAKER) (test dgfq=714) 217 K/CU MM 150-450 MEAN PLATELET VOLUME (BEAKER) (test flwj=847) 12.0 fL 9.4-12.4 NUCLEATED RED BLOOD CELLS (BEAKER) (test 0 /100 WBC 0-0 retk=647) NEUTROPHILS RELATIVE PERCENT (BEAKER) (test 69 % vzjp=739) LYMPHOCYTES RELATIVE PERCENT (BEAKER) (test 20 % nrmb=001) MONOCYTES RELATIVE PERCENT (BEAKER) (test 9 % gplb=869) EOSINOPHILS RELATIVE PERCENT (BEAKER) (test 1 % vqgj=129) BASOPHILS RELATIVE PERCENT (BEAKER) (test 1 % wtsc=835) NEUTROPHILS ABSOLUTE COUNT (BEAKER) (test 6.27 K/ L 1.78-5.38 zkcj=324) LYMPHOCYTES ABSOLUTE COUNT (BEAKER) (test 1.77 K/ L 1.32-3.57 ocdy=223) MONOCYTES ABSOLUTE COUNT (BEAKER) (test 0.80 K/ L 0.30-0.82 bwea=726) EOSINOPHILS ABSOLUTE COUNT (BEAKER) (test 0.12 K/ L 0.04-0.54 ohmv=991) BASOPHILS ABSOLUTE COUNT (BEAKER) (test 0.06 K/ L 0.01-0.08 avxp=277) IMMATURE GRANULOCYTES-RELATIVE PERCENT (BEAKER) 0 % 0-1 (test vylp=7245) POCT-GLUCOSE [id number] 00:25:00 Test Item Value Reference Range Comments POC-GLUCOSE METER (BEAKER) 228 mg/dL 70-110 : TESTED AT [facility] [address] [facility] (test xpfe=1188) [facility], [place], [address]: Motorboat Mechanic Inboard/Outboard/Early Head Start Teacher [id number]=[id number] for BREANNE SHRESTHA CALCIUM, [id number] 07:07:00 Test Item Value Reference Range Comments CALCIUM IONIZED (BEAKER) (test brkf=277) 1.18 mmol/L 1.12-1.27 PH, BLOOD (BEAKER) (test petv=1874) 7.45 [id number] 05:53:00 Test Item Value Reference Range Comments PHOSPHORUS (BEAKER) (test xrym=328) 2.5 mg/dL 2.3-4.7 [id number] 05:53:00 Test Item Value Reference Range Comments MAGNESIUM (BEAKER) (test rqjr=123) 2.0 mg/dL 1.6-2.6 COMPREHENSIVE METABOLIC [id number] 05:53:00 Test Item Value Reference Range Comments TOTAL PROTEIN (BEAKER) 5.8 gm/dL 6.0-8.3 (test awqk=104) ALBUMIN (BEAKER) (test 3.4 g/dL 3.5-5.0 snno=2463) ALKALINE PHOSPHATASE 148 U/L 40-150 (BEAKER) (test wwdw=710) BILIRUBIN TOTAL (BEAKER) 0.8 mg/dL 0.2-1.2 (test ctqo=390) SODIUM (BEAKER) (test 142 meq/L 136-145 ybko=635) POTASSIUM (BEAKER) (test 4.9 meq/L 3.5-5.1 nmlu=029) CHLORIDE (BEAKER) (test 109 meq/L 98-107 mzxd=155) CO2 (BEAKER) (test 24 meq/L 22-29 jznr=896) BLOOD UREA NITROGEN 56 mg/dL 7-21 (BEAKER) (test omrv=329) CREATININE (BEAKER) (test 1.31 mg/dL 0.57-1.25 zwmk=306) GLUCOSE RANDOM (BEAKER) 168 mg/dL 70-105 (test jvbg=183) CALCIUM (BEAKER) (test 9.7 mg/dL 8.4-10.2 pibn=484) AST (SGOT) (BEAKER) (test 28 U/L 5-34 cdlc=614) ALT (SGPT) (BEAKER) (test 24 U/L 6-55 vvci=389) EGFR (BEAKER) (test 53 mL/min/1.73 sq m ESTIMATED GFR IS NOT rkzc=9598) ACCURATE CREATININE CLEARANCE IN PREDICTING GLOMERULAR FILTRATION RATE. ESTIMATED GFR IS NOT APPLICABLE FOR DIALYSIS PATIENTS. BASIC METABOLIC [id number] 05:53:00 Test Item Value Reference Range Comments SODIUM (BEAKER) (test 142 meq/L 136-145 zzqm=811) POTASSIUM (BEAKER) (test 4.9 meq/L 3.5-5.1 qtyd=069) CHLORIDE (BEAKER) (test 109 meq/L 98-107 tpjg=914) CO2 (BEAKER) (test 24 meq/L 22-29 iwnb=483) BLOOD UREA NITROGEN 56 mg/dL 7-21 (BEAKER) (test rowi=877) CREATININE (BEAKER) (test 1.31 mg/dL 0.57-1.25 ccqf=565) GLUCOSE RANDOM (BEAKER) 168 mg/dL 70-105 (test ubpp=299) CALCIUM (BEAKER) (test 9.7 mg/dL 8.4-10.2 ulxf=672) EGFR (BEAKER) (test 53 mL/min/1.73 sq m ESTIMATED GFR IS NOT iczi=0625) ACCURATE CREATININE CLEARANCE IN PREDICTING GLOMERULAR FILTRATION RATE. ESTIMATED GFR IS NOT APPLICABLE FOR DIALYSIS PATIENTS. POCT-GLUCOSE [id number] 05:34:00 Test Item Value Reference Range Comments POC-GLUCOSE METER (BEAKER) 152 mg/dL 70-110 : TESTED AT [facility] [address] [facility] (test iopk=4153) [facility], [place], [address]: Motorboat Mechanic Inboard/Outboard/Early Head Start Teacher [id number] for [address] PROTHROMBIN TIME/[id number] 04:42:00 Test Item Value Reference Range Comments PROTIME (BEAKER) (test kkfz=152) 15.8 seconds 11.9-14.2 INR (BEAKER) (test cpje=650) 1.3 <=5.9 Effective 07/17/2018: PT Reference Range ChangeNew: 11.9-14.2 Previous: 11.7- 14.7RECOMMENDED COUMADIN/WARFARIN INR THERAPY RANGESSTANDARD DOSE: 2.0-3.0 Includes: PROPHYLAXIS for venous thrombosis, systemic embolization; TREATMENT for venous thrombosis and/or pulmonary embolus.HIGH RISK: Target INR is2.5-3.5 for patients wiht mechanical heart valves.While on warfarin.CBC W/PLT COUNT &amp ; AUTO [id number] 04:37:00 Test Item Value Reference Range Comments WHITE BLOOD CELL COUNT (BEAKER) (test tcyj=553) 7.6 K/ L 3.5-10.5 RED BLOOD CELL COUNT (BEAKER) (test kfli=120) 3.07 M/ L 4.63-6.08 HEMOGLOBIN (BEAKER) (test sazj=352) 9.0 GM/DL 13.7-17.5 HEMATOCRIT (BEAKER) (test sunm=856) 28.8 % 40.1-51.0 MEAN CORPUSCULAR VOLUME (BEAKER) (test nbdw=910) 93.8 fL 79.0-92.2 MEAN CORPUSCULAR HEMOGLOBIN (BEAKER) (test 29.3 pg 25.7-32.2 npoc=946) MEAN CORPUSCULAR HEMOGLOBIN CONC (BEAKER) (test 31.3 GM/DL 32.3-36.5 anje=983) RED CELL DISTRIBUTION WIDTH (BEAKER) (test 20.1 % 11.6-14.4 qyaz=565) PLATELET COUNT (BEAKER) (test wocn=896) 205 K/CU MM 150-450 MEAN PLATELET VOLUME (BEAKER) (test ysrr=924) 12.4 fL 9.4-12.4 NUCLEATED RED BLOOD CELLS (BEAKER) (test 0 /100 WBC 0-0 uked=061) NEUTROPHILS RELATIVE PERCENT (BEAKER) (test 65 % oobs=512) LYMPHOCYTES RELATIVE PERCENT (BEAKER) (test 25 % xify=426) MONOCYTES RELATIVE PERCENT (BEAKER) (test 8 % gmea=276) EOSINOPHILS RELATIVE PERCENT (BEAKER) (test 1 % july=553) BASOPHILS RELATIVE PERCENT (BEAKER) (test 1 % uolg=087) NEUTROPHILS ABSOLUTE COUNT (BEAKER) (test 4.94 K/ L 1.78-5.38 pizz=888) LYMPHOCYTES ABSOLUTE COUNT (BEAKER) (test 1.92 K/ L 1.32-3.57 jjzz=021) MONOCYTES ABSOLUTE COUNT (BEAKER) (test 0.60 K/ L 0.30-0.82 sfag=828) EOSINOPHILS ABSOLUTE COUNT (BEAKER) (test 0.09 K/ L 0.04-0.54 xpip=215) BASOPHILS ABSOLUTE COUNT (BEAKER) (test 0.05 K/ L 0.01-0.08 xwju=027) IMMATURE GRANULOCYTES-RELATIVE PERCENT (BEAKER) 0 % 0-1 (test teyj=3662) POCT-GLUCOSE [id number] 01:00:00 Test Item Value Reference Range Comments POC-GLUCOSE METER (BEAKER) 171 mg/dL 70-110 : TESTED AT [address] (test kfrw=7966) [facility], [place], [address]: [employer] Inboard/[employer]board/[employer] Teacher [id number] for [address] POCT-GLUCOSE [id number] 18:29:00 Test Item Value Reference Range Comments POC-GLUCOSE METER (BEAKER) 238 mg/dL 70-110 : TESTED AT [address] (test tmpn=4973) [facility], [place], [address]: Motorboat [employer] Inboard/Outboard/Early [employer] Teacher [id number] for BEN MATAMOROS POCT-GLUCOSE [id number] 15:29:00 Test Item Value Reference Range Comments POC-GLUCOSE METER (BEAKER) 216 mg/dL 70-110 : TESTED AT [address] (test kohl=4477) [facility], [place], [address]: Motorboat [employer]ic Inboard/Outboard/Early [employer] Start Teacher [id number] for [facility]EN MATAM[employer]OS [id number] 07:17:00 Test Item Value Reference Range Comments PHOSPHORUS (BEAKER) (test fkqo=300) 2.5 mg/dL 2.3-4.7 [id number] 07:17:00 Test Item Value Reference Range Comments MAGNESIUM (BEAKER) (test xewd=625) 1.8 mg/dL 1.6-2.6 COMPREHENSIVE METABOLIC [id number] 07:17:00 Test Item Value Reference Range Comments TOTAL PROTEIN (BEAKER) 5.6 gm/dL 6.0-8.3 (test fhfi=723) ALBUMIN (BEAKER) (test 3.4 g/dL 3.5-5.0 fetb=8816) ALKALINE PHOSPHATASE 128 U/L 40-150 (BEAKER) (test dxqq=552) BILIRUBIN TOTAL (BEAKER) 0.9 mg/dL 0.2-1.2 (test xbqt=138) SODIUM (BEAKER) (test 143 meq/L 136-145 rlmj=541) POTASSIUM (BEAKER) (test 4.8 meq/L 3.5-5.1 paea=028) CHLORIDE (BEAKER) (test 110 meq/L 98-107 vtia=221) CO2 (BEAKER) (test 26 meq/L 22-29 njst=810) BLOOD UREA NITROGEN 54 mg/dL 7-21 (BEAKER) (test lvmk=112) CREATININE (BEAKER) (test 1.21 mg/dL 0.57-1.25 litp=806) GLUCOSE RANDOM (BEAKER) 120 mg/dL 70-105 (test shwe=534) CALCIUM (BEAKER) (test 9.4 mg/dL 8.4-10.2 sxbk=951) AST (SGOT) (BEAKER) (test 23 U/L 5-34 dhxu=895) ALT (SGPT) (BEAKER) (test 17 U/L 6-55 rstl=227) EGFR (BEAKER) (test 58 mL/min/1.73 sq m ESTIMATED GFR IS NOT whkb=9602) ACCURATE CREATININE CLEARANCE IN PREDICTING GLOMERULAR FILTRATION RATE. ESTIMATED GFR IS NOT APPLICABLE FOR DIALYSIS PATIENTS. BASIC METABOLIC [id number] 07:17:00 Test Item Value Reference Range Comments SODIUM (BEAKER) (test 143 meq/L 136-145 xjme=798) POTASSIUM (BEAKER) (test 4.8 meq/L 3.5-5.1 hxfh=553) CHLORIDE (BEAKER) (test 110 meq/L 98-107 anca=336) CO2 (BEAKER) (test 26 meq/L 22-29 vkrg=004) BLOOD UREA NITROGEN 54 mg/dL 7-21 (BEAKER) (test bdtj=804) CREATININE (BEAKER) (test 1.21 mg/dL 0.57-1.25 jnry=290) GLUCOSE RANDOM (BEAKER) 120 mg/dL 70-105 (test wcam=765) CALCIUM (BEAKER) (test 9.4 mg/dL 8.4-10.2 xjol=767) EGFR (BEAKER) (test 58 mL/min/1.73 sq m ESTIMATED GFR IS NOT jsfs=4822) ACCURATE CREATININE CLEARANCE IN PREDICTING GLOMERULAR FILTRATION RATE. ESTIMATED GFR IS NOT APPLICABLE FOR DIALYSIS PATIENTS. POCT-GLUCOSE [id number] 06:50:00 Test Item Value Reference Range Comments POC-GLUCOSE METER (BEAKER) 119 mg/dL 70-110 : TESTED AT [facility] [address] [facility] (test pybv=8687) [place], [address]: Motorboat [employer]ic Inboard/Outboard/Early [employer] Start Teacher [id number] for SANTHOSH SANDOVAL CBC W/PLT COUNT & AUTO [id number] 06:36:00 Test Item Value Reference Range Comments WHITE BLOOD CELL COUNT (BEAKER) (test yoyd=060) 6.5 K/ L 3.5-10.5 RED BLOOD CELL COUNT (BEAKER) (test tzvv=774) 3.16 M/ L 4.63-6.08 HEMOGLOBIN (BEAKER) (test jabl=615) 9.3 GM/DL 13.7-17.5 HEMATOCRIT (BEAKER) (test qtba=365) 29.1 % 40.1-51.0 MEAN CORPUSCULAR VOLUME (BEAKER) (test ffkn=619) 92.1 fL 79.0-92.2 MEAN CORPUSCULAR HEMOGLOBIN (BEAKER) (test 29.4 pg 25.7-32.2 sdqw=401) MEAN CORPUSCULAR HEMOGLOBIN CONC (BEAKER) (test 32.0 GM/DL 32.3-36.5 ejch=281) RED CELL DISTRIBUTION WIDTH (BEAKER) (test 20.0 % 11.6-14.4 vdnq=537) PLATELET COUNT (BEAKER) (test wdkw=061) 190 K/CU MM 150-450 MEAN PLATELET VOLUME (BEAKER) (test afxk=221) 12.9 fL 9.4-12.4 NUCLEATED RED BLOOD CELLS (BEAKER) (test 0 /100 WBC 0-0 twrd=903) NEUTROPHILS RELATIVE PERCENT (BEAKER) (test 62 % tazq=485) LYMPHOCYTES RELATIVE PERCENT (BEAKER) (test 26 % adna=886) MONOCYTES RELATIVE PERCENT (BEAKER) (test 8 % cmde=288) EOSINOPHILS RELATIVE PERCENT (BEAKER) (test 3 % wyfx=380) BASOPHILS RELATIVE PERCENT (BEAKER) (test 1 % lpeh=700) NEUTROPHILS ABSOLUTE COUNT (BEAKER) (test 4.08 K/ L 1.78-5.38 ovsp=432) LYMPHOCYTES ABSOLUTE COUNT (BEAKER) (test 1.69 K/ L 1.32-3.57 ruba=741) MONOCYTES ABSOLUTE COUNT (BEAKER) (test 0.51 K/ L 0.30-0.82 bgax=757) EOSINOPHILS ABSOLUTE COUNT (BEAKER) (test 0.19 K/ L 0.04-0.54 xktg=715) BASOPHILS ABSOLUTE COUNT (BEAKER) (test 0.05 K/ L 0.01-0.08 oykz=163) IMMATURE GRANULOCYTES-RELATIVE PERCENT (BEAKER) 0 % 0-1 (test onzo=0705) CALCIUM, [id number] 06:35:00 Test Item Value Reference Range Comments CALCIUM IONIZED (BEAKER) (test rmjw=191) 1.16 mmol/L 1.12-1.27 PH, BLOOD (BEAKER) (test ienw=3068) 7.48 POCT-GLUCOSE [id number] 23:52:00 Test Item Value Reference Range Comments POC-GLUCOSE METER (BEAKER) 134 mg/dL 70-110 : TESTED AT [address] (test hbcx=8225) [facility], [place], [address]: Motorboat Mechanic Inboard/Outboard/Early Head Start Teacher [id number] for SANTHOSH SANDOVAL POCT-GLUCOSE [id number] 18:06:00 Test Item Value Reference Range Comments POC-GLUCOSE METER (BEAKER) 137 mg/dL 70-110 : TESTED AT [address] (test ifoj=1357) [facility], [place], [address]: Motorboat Mechanic Inboard/Outboard/Early Head Start Teacher [id number] for TEZENO, GENE POCT-GLUCOSE [id number] 12:30:00 Test Item Value Reference Range Comments POC-GLUCOSE METER (BEAKER) 222 mg/dL 70-110 : TESTED AT [address] (test fckf=5578) [facility], [place], [address]: Motorboat Mechanic Inboard/Outboard/Early Head Start Teacher [id number] for TEZENO, GENE [id number] 11:28:00 Test Item Value Reference Range Comments PARTIAL THROMBOPLASTIN TIME (BEAKER) (test 87.8 seconds 22.5-36.0 cvkg=652) POCT-GLUCOSE [id number] 07:02:00 Test Item Value Reference Range Comments POC-GLUCOSE METER (BEAKER) 145 mg/dL 70-110 : TESTED AT [facility] [address] (test ydoj=3838) [place], [address]: Motorboat Mechanic Inboard/Outboard/Early Head Start Teacher [id number] for JOHNIE MCKEON [id number] 06:51:00 Test Item Value Reference Range Comments PHOSPHORUS (BEAKER) (test vmgs=752) 2.4 mg/dL 2.3-4.7 [id number] 06:51:00 Test Item Value Reference Range Comments MAGNESIUM (BEAKER) (test abmv=394) 2.0 mg/dL 1.6-2.6 BASIC METABOLIC [id number] 06:51:00 Test Item Value Reference Range Comments SODIUM (BEAKER) (test 143 meq/L 136-145 twbj=413) POTASSIUM (BEAKER) (test 4.6 meq/L 3.5-5.1 cims=342) CHLORIDE (BEAKER) (test 109 meq/L 98-107 rxfr=798) CO2 (BEAKER) (test 28 meq/L 22-29 cqvv=113) BLOOD UREA NITROGEN 56 mg/dL 7-21 (BEAKER) (test ovnd=178) CREATININE (BEAKER) (test 1.45 mg/dL 0.57-1.25 hgku=206) GLUCOSE RANDOM (BEAKER) 202 mg/dL 70-105 (test scad=338) CALCIUM (BEAKER) (test 9.6 mg/dL 8.4-10.2 rgwf=699) EGFR (BEAKER) (test 47 mL/min/1.73 sq m ESTIMATED GFR IS NOT pxhj=1305) ACCURATE CREATININE CLEARANCE IN PREDICTING GLOMERULAR FILTRATION RATE. ESTIMATED GFR IS NOT APPLICABLE FOR DIALYSIS PATIENTS. CBC W/PLT COUNT & AUTO [id number] 06:33:00 Test Item Value Reference Range Comments WHITE BLOOD CELL COUNT (BEAKER) (test dgcl=423) 5.5 K/ L 3.5-10.5 RED BLOOD CELL COUNT (BEAKER) (test usbz=518) 2.98 M/ L 4.63-6.08 HEMOGLOBIN (BEAKER) (test ewqh=964) 8.8 GM/DL 13.7-17.5 HEMATOCRIT (BEAKER) (test twgg=403) 27.6 % 40.1-51.0 MEAN CORPUSCULAR VOLUME (BEAKER) (test qjeh=864) 92.6 fL 79.0-92.2 MEAN CORPUSCULAR HEMOGLOBIN (BEAKER) (test 29.5 pg 25.7-32.2 atfw=964) MEAN CORPUSCULAR HEMOGLOBIN CONC (BEAKER) (test 31.9 GM/DL 32.3-36.5 jsng=056) RED CELL DISTRIBUTION WIDTH (BEAKER) (test 20.4 % 11.6-14.4 pckx=367) PLATELET COUNT (BEAKER) (test goip=163) 156 K/CU MM 150-450 MEAN PLATELET VOLUME (BEAKER) (test floy=694) 12.4 fL 9.4-12.4 NUCLEATED RED BLOOD CELLS (BEAKER) (test 0 /100 WBC 0-0 folj=517) NEUTROPHILS RELATIVE PERCENT (BEAKER) (test 63 % hkoj=805) LYMPHOCYTES RELATIVE PERCENT (BEAKER) (test 22 % lpfx=665) MONOCYTES RELATIVE PERCENT (BEAKER) (test 10 % ytcj=378) EOSINOPHILS RELATIVE PERCENT (BEAKER) (test 4 % vata=251) BASOPHILS RELATIVE PERCENT (BEAKER) (test 1 % eycv=913) NEUTROPHILS ABSOLUTE COUNT (BEAKER) (test 3.46 K/ L 1.78-5.38 usti=377) LYMPHOCYTES ABSOLUTE COUNT (BEAKER) (test 1.23 K/ L 1.32-3.57 fzyt=570) MONOCYTES ABSOLUTE COUNT (BEAKER) (test 0.56 K/ L 0.30-0.82 lxla=098) EOSINOPHILS ABSOLUTE COUNT (BEAKER) (test 0.23 K/ L 0.04-0.54 flgw=387) BASOPHILS ABSOLUTE COUNT (BEAKER) (test 0.03 K/ L 0.01-0.08 dvxz=523) IMMATURE GRANULOCYTES-RELATIVE PERCENT (BEAKER) 0 % 0-1 (test jnhi=4999) CALCIUM, [id number] 06:31:00 Test Item Value Reference Range Comments CALCIUM IONIZED (BEAKER) (test mesx=193) 1.19 mmol/L 1.12-1.27 PH, BLOOD (BEAKER) (test qdae=0140) 7.40 POCT-GLUCOSE [id number] 00:27:00 Test Item Value Reference Range Comments POC-GLUCOSE METER (BEAKER) 175 mg/dL 70-110 : TESTED AT [facility] [address] (test lqbn=7613) [facility], [place], [address]: Motorboat Mechanic Inboard/Outboard/Early Head Start Teacher [id number] for JOHNIE MCKEON CREATININE, RANDOM [id number] 20:11:00 Test Item Value Reference Range Comments CREATININE URINE (BEAKER) (test uuoi=202) 43.1 mg/dL Reference Range: No NormalsCBC W/PLT COUNT & AUTO [id number] 18: 34:00 Test Item Value Reference Range Comments WHITE BLOOD CELL COUNT (BEAKER) (test jkjs=121) 4.6 K/ L 3.5-10.5 RED BLOOD CELL COUNT (BEAKER) (test ugwb=760) 2.37 M/ L 4.63-6.08 HEMOGLOBIN (BEAKER) (test qiyp=526) 7.2 GM/DL 13.7-17.5 HEMATOCRIT (BEAKER) (test ikjw=286) 21.6 % 40.1-51.0 MEAN CORPUSCULAR VOLUME (BEAKER) (test wjek=957) 91.1 fL 79.0-92.2 MEAN CORPUSCULAR HEMOGLOBIN (BEAKER) (test 30.4 pg 25.7-32.2 eihf=290) MEAN CORPUSCULAR HEMOGLOBIN CONC (BEAKER) (test 33.3 GM/DL 32.3-36.5 otkj=572) RED CELL DISTRIBUTION WIDTH (BEAKER) (test 20.1 % 11.6-14.4 ymbw=818) PLATELET COUNT (BEAKER) (test djag=419) 124 K/CU MM 150-450 MEAN PLATELET VOLUME (BEAKER) (test wqpt=493) 11.9 fL 9.4-12.4 NUCLEATED RED BLOOD CELLS (BEAKER) (test 0 /100 WBC 0-0 jsmg=993) NEUTROPHILS RELATIVE PERCENT (BEAKER) (test 59 % ayve=772) LYMPHOCYTES RELATIVE PERCENT (BEAKER) (test 28 % squa=166) MONOCYTES RELATIVE PERCENT (BEAKER) (test 9 % lhdq=638) EOSINOPHILS RELATIVE PERCENT (BEAKER) (test 3 % jkfp=992) BASOPHILS RELATIVE PERCENT (BEAKER) (test 0 % ksrn=744) NEUTROPHILS ABSOLUTE COUNT (BEAKER) (test 2.72 K/ L 1.78-5.38 vszr=157) LYMPHOCYTES ABSOLUTE COUNT (BEAKER) (test 1.28 K/ L 1.32-3.57 kzyc=540) MONOCYTES ABSOLUTE COUNT (BEAKER) (test 0.42 K/ L 0.30-0.82 ddgd=055) EOSINOPHILS ABSOLUTE COUNT (BEAKER) (test 0.15 K/ L 0.04-0.54 wiko=266) BASOPHILS ABSOLUTE COUNT (BEAKER) (test 0.02 K/ L 0.01-0.08 wova=736) IMMATURE GRANULOCYTES-RELATIVE PERCENT (BEAKER) 0 % 0-1 (test ogty=2938) SODIUM, RANDOM [id number] 18:30:00 Test Item Value Reference Range Comments SODIUM URINE (BEAKER) (test cgmf=905) 30 meq/L Reference Range: No NormalsPOCT-GLUCOSE [id number] 18:28:00 Test Item Value Reference Range Comments POC-GLUCOSE METER (BEAKER) 187 mg/dL 70-110 : TESTED AT [facility] [address] [facility] (test qckn=0935) [facility], [place], [address]: Motorboat Mechanic Inboard/Outboard/Early Head Start Teacher [id number] for GENE MENDENHALL [id number] 16:15:00 Test Item Value Reference Range Comments ALBUMIN (BEAKER) (test yagg=7138) 3.4 g/dL 3.5-5.0 U/S, [id number] 14:10:00Labs to be ordered:->No Labs NeededReason for exam:->ascitiesShould this be performed at the bedside?-> NoFINAL REPORT PROCEDURE: Ultrasound-guided paracentesis. INDICATION: 83-year-old man with ascites. DESCRIPTION: After obtaining informed written consent, ultrasound scan of the abdomen identified ascites in the right lower quadrant. The overlying skin was prepped and draped in the usual, sterile fashion and local 2% lidocaine anesthesia was administered. A 5 [place] catheter was advanced into the peritoneal cavity and 6700 cc of cardiomegaly fluid was removed. The catheter was removed without immediate complication. IMPRESSION:Uncomplicated ultrasound-guided paracentesis with 6700 cc fluid removed. Signed: Iliana Velez MDReport Verified Date/Time : 02/12/2019 14:10:42 Reading Location: [facility] C013Y [place] Body Reading Room POCT- GLUCOSE [id number] 12:58:00 Test Item Value Reference Range Comments POC-GLUCOSE METER (BEAKER) 244 mg/dL 70-110 : TESTED AT [facility] [address] [facility] (test pcxd=8714) [facility], [place], [address]: Motorboat Mechanic Inboard/Outboard/Early Head Start Teacher [id number] for GENE MENDENHALL CBC W/PLT COUNT & AUTO [id number] 11:26:00 Test Item Value Reference Range Comments WHITE BLOOD CELL COUNT (BEAKER) (test enlq=608) 5.5 K/ L 3.5-10.5 RED BLOOD CELL COUNT (BEAKER) (test bbjg=055) 3.03 M/ L 4.63-6.08 HEMOGLOBIN (BEAKER) (test cadj=521) 8.9 GM/DL 13.7-17.5 HEMATOCRIT (BEAKER) (test opzt=071) 27.1 % 40.1-51.0 MEAN CORPUSCULAR VOLUME (BEAKER) (test zvkv=394) 89.4 fL 79.0-92.2 MEAN CORPUSCULAR HEMOGLOBIN (BEAKER) (test 29.4 pg 25.7-32.2 pwet=600) MEAN CORPUSCULAR HEMOGLOBIN CONC (BEAKER) (test 32.8 GM/DL 32.3-36.5 owfv=918) RED CELL DISTRIBUTION WIDTH (BEAKER) (test 20.2 % 11.6-14.4 elrt=052) PLATELET COUNT (BEAKER) (test fvfp=316) 158 K/CU MM 150-450 MEAN PLATELET VOLUME (BEAKER) (test djlm=643) 12.7 fL 9.4-12.4 NUCLEATED RED BLOOD CELLS (BEAKER) (test 0 /100 WBC 0-0 qdck=848) NEUTROPHILS RELATIVE PERCENT (BEAKER) (test 61 % nfab=497) LYMPHOCYTES RELATIVE PERCENT (BEAKER) (test 25 % olxm=043) MONOCYTES RELATIVE PERCENT (BEAKER) (test 9 % uprt=352) EOSINOPHILS RELATIVE PERCENT (BEAKER) (test 4 % fyae=386) BASOPHILS RELATIVE PERCENT (BEAKER) (test 1 % keux=620) NEUTROPHILS ABSOLUTE COUNT (BEAKER) (test 3.33 K/ L 1.78-5.38 ekkf=554) LYMPHOCYTES ABSOLUTE COUNT (BEAKER) (test 1.37 K/ L 1.32-3.57 cmpv=249) MONOCYTES ABSOLUTE COUNT (BEAKER) (test 0.49 K/ L 0.30-0.82 pzwp=767) EOSINOPHILS ABSOLUTE COUNT (BEAKER) (test 0.21 K/ L 0.04-0.54 vwla=285) BASOPHILS ABSOLUTE COUNT (BEAKER) (test 0.03 K/ L 0.01-0.08 jlpg=163) IMMATURE GRANULOCYTES-RELATIVE PERCENT (BEAKER) 1 % 0-1 (test oqrc=8138) POCT-GLUCOSE [id number] 09:58:00 Test Item Value Reference Range Comments POC-GLUCOSE METER (BEAKER) 208 mg/dL 70-110 : TESTED AT [address] (test hjlt=3595) [facility], [place], [address]: Motorboat Mechanic Inboard/Outboard/Early Head Start Teacher [id number] for ABDIRASHID GENE RAD, CHEST, 1 VIEW, NON [id number] 09:22:00Reason for exam:->r/o pneumoniaShould this be performed at the bedside?->YesFINAL REPORT TECHNIQUE: Frontal view of the chest. INDICATION: 83-year-old man with pneumonia. COMPARISON: Chest radiograph 02/05/2019. FINDINGS: LINES/TUBES : Partially visualized feeding tube courses over the expected region of the stomach. LUNGS: Patchy bilateral airspace opacities, mildly decreased in the left lower lung zone. PLEURA: No pneumothorax or significant pleural effusion. HEART AND MEDIASTINUM: The cardiomediastinal silhouette is unchanged. Atherosclerotic calcifications in the thoracic aorta. SOFT TISSUES AND BONES: Unchanged median sternotomy wires. Soft tissues are unremarkable. IMPRESSION: Lines/tubes as above. Mildly decreased airspace opacities in the left lower lung zone. Otherwise, no significant change since 02/05/2019. Signed: Iliana Velez MDReport Verified Date/Time: 02/12/2019 09:22:18 Reading Location: [facility] C013Y [place] Body Reading Room CALCIUM, [id number] 05:47:00 Test Item Value Reference Range Comments CALCIUM IONIZED (BEAKER) (test ggue=128) 1.20 mmol/L 1.12-1.27 PH, BLOOD (BEAKER) (test iisd=7757) 7.40 [id number] 04:57:00 Test Item Value Reference Range Comments PHOSPHORUS (BEAKER) (test saez=665) 2.6 mg/dL 2.3-4.7 [id number] 04:57:00 Test Item Value Reference Range Comments MAGNESIUM (BEAKER) (test zunv=733) 2.1 mg/dL 1.6-2.6 BASIC METABOLIC [id number] 04:57:00 Test Item Value Reference Range Comments SODIUM (BEAKER) (test 141 meq/L 136-145 xpsk=904) POTASSIUM (BEAKER) (test 4.6 meq/L 3.5-5.1 kjtj=629) CHLORIDE (BEAKER) (test 108 meq/L 98-107 qnuv=394) CO2 (BEAKER) (test 25 meq/L 22-29 qqil=541) BLOOD UREA NITROGEN 61 mg/dL 7-21 (BEAKER) (test jieu=070) CREATININE (BEAKER) (test 1.53 mg/dL 0.57-1.25 amro=647) GLUCOSE RANDOM (BEAKER) 228 mg/dL 70-105 (test rlrh=189) CALCIUM (BEAKER) (test 9.2 mg/dL 8.4-10.2 gekp=866) EGFR (BEAKER) (test 44 mL/min/1.73 sq m ESTIMATED GFR IS NOT iytg=3922) ACCURATE CREATININE CLEARANCE IN PREDICTING GLOMERULAR FILTRATION RATE. ESTIMATED GFR IS NOT APPLICABLE FOR DIALYSIS PATIENTS. CBC W/PLT COUNT & AUTO [id number] 04:51:00 Test Item Value Reference Range Comments WHITE BLOOD CELL COUNT (BEAKER) (test jojg=254) 6.1 K/ L 3.5-10.5 RED BLOOD CELL COUNT (BEAKER) (test ggmj=327) 2.94 M/ L 4.63-6.08 HEMOGLOBIN (BEAKER) (test ykke=060) 8.6 GM/DL 13.7-17.5 HEMATOCRIT (BEAKER) (test vxrv=598) 26.6 % 40.1-51.0 MEAN CORPUSCULAR VOLUME (BEAKER) (test xose=361) 90.5 fL 79.0-92.2 MEAN CORPUSCULAR HEMOGLOBIN (BEAKER) (test 29.3 pg 25.7-32.2 lczt=136) MEAN CORPUSCULAR HEMOGLOBIN CONC (BEAKER) (test 32.3 GM/DL 32.3-36.5 fwmx=341) RED CELL DISTRIBUTION WIDTH (BEAKER) (test 20.3 % 11.6-14.4 icea=431) PLATELET COUNT (BEAKER) (test wzam=008) 151 K/CU MM 150-450 MEAN PLATELET VOLUME (BEAKER) (test psvs=757) 13.0 fL 9.4-12.4 NUCLEATED RED BLOOD CELLS (BEAKER) (test 0 /100 WBC 0-0 sjut=182) NEUTROPHILS RELATIVE PERCENT (BEAKER) (test 60 % kmho=050) LYMPHOCYTES RELATIVE PERCENT (BEAKER) (test 27 % vzjy=886) MONOCYTES RELATIVE PERCENT (BEAKER) (test 8 % kqwx=256) EOSINOPHILS RELATIVE PERCENT (BEAKER) (test 4 % vyge=148) BASOPHILS RELATIVE PERCENT (BEAKER) (test 1 % qmvw=538) NEUTROPHILS ABSOLUTE COUNT (BEAKER) (test 3.63 K/ L 1.78-5.38 qlrd=482) LYMPHOCYTES ABSOLUTE COUNT (BEAKER) (test 1.61 K/ L 1.32-3.57 yovi=878) MONOCYTES ABSOLUTE COUNT (BEAKER) (test 0.51 K/ L 0.30-0.82 aevu=102) EOSINOPHILS ABSOLUTE COUNT (BEAKER) (test 0.24 K/ L 0.04-0.54 lfbv=347) BASOPHILS ABSOLUTE COUNT (BEAKER) (test 0.03 K/ L 0.01-0.08 isoj=932) IMMATURE GRANULOCYTES-RELATIVE PERCENT (BEAKER) 1 % 0-1 (test qmfg=2441) B-TYPE NATRIURETIC FACTOR (BNP)2019-02-12 04:51:00 Test Item Value Reference Range Comments B-TYPE NATRIURETIC PEPTIDE (BEAKER) (test 734 pg/mL 0-100 htyx=622) [id number] 04:38:00 Test Item Value Reference Range Comments PROTIME (BEAKER) (test jbcz=053) 16.3 seconds 11.9-14.2 INR (BEAKER) (test fkzt=371) 1.4 <=5.9 PARTIAL THROMBOPLASTIN TIME (BEAKER) (test 96.8 seconds 22.5-36.0 ttbr=679) Effective 07/17/2018: PT Reference Range ChangeNew: 11.9-14.2 Previous: 11.7- 14.7RECOMMENDED COUMADIN/WARFARIN INR THERAPY RANGESSTANDARD DOSE: 2.0-3.0 Includes: PROPHYLAXIS for venous thrombosis, systemic embolization; TREATMENT for venous thrombosis and/or pulmonary embolus.HIGH RISK: Target INR is2.5-3.5 for patients wiht mechanical heart valves.PROTHROMBIN [id number] 04:36: 00 Test Item Value Reference Range Comments PROTIME (BEAKER) (test iwtr=239) 16.3 seconds 11.9-14.2 INR (BEAKER) (test xwjy=057) 1.4 <=5.9 Effective 07/17/2018: PT Reference Range ChangeNew: 11.9-14.2 Previous: 11.7- 14.7RECOMMENDED COUMADIN/WARFARIN INR THERAPY RANGESSTANDARD DOSE: 2.0-3.0 Includes: PROPHYLAXIS for venous thrombosis, systemic embolization; TREATMENT for venous thrombosis and/or pulmonary embolus.HIGH RISK: Target INR is2.5-3.5 for patients wiht mechanical heart valves.POCT-GLUCOSE [id number] 23:58:00 Test Item Value Reference Range Comments POC-GLUCOSE METER (BEAKER) 184 mg/dL 70-110 : TESTED AT [address] (test zavl=3066) [facility], [place], [address]: Motorboat Mechanic Inboard/Outboard/Early Head Start Teacher [id number] for JOHNIE MCKEON POCT-GLUCOSE [id number] 18:32:00 Test Item Value Reference Range Comments POC-GLUCOSE METER (BEAKER) 173 mg/dL 70-110 : TESTED AT [address] (test nkeg=6162) [facility], [place], [address]: Motorboat Mechanic Inboard/Outboard/Early Head Start Teacher [id number] for GENE MENDENHALL POCT-GLUCOSE [id number] 16:37:00 Test Item Value Reference Range Comments POC-GLUCOSE METER (BEAKER) 161 mg/dL 70-110 : TESTED AT [facility] [address] [facility] (test vxno=3723) [facility], [place], [address]: Motorboat Mechanic Inboard/Outboard/Early Head Start Teacher [id number] for GENE MENDENHALL POCT-GLUCOSE [id number] 11:27:00 Test Item Value Reference Range Comments POC-GLUCOSE METER (BEAKER) 163 mg/dL 70-110 : TESTED AT [facility] [address] [facility] (test rdga=2326) [facility], [place], [address]: Motorboat Mechanic Inboard/Outboard/Early Head Start Teacher [id number] for GENE MENDENHALL MRSA [id number] 10:56:00 Test Item Value Reference Range Comments CULTURE (BEAKER) (test irrr=6019) No MRSA isolated CBC W/PLT COUNT & AUTO [id number] 06:24:00 Test Item Value Reference Range Comments WHITE BLOOD CELL COUNT (BEAKER) (test qbpo=304) 5.7 K/ L 3.5-10.5 RED BLOOD CELL COUNT (BEAKER) (test zsfx=007) 2.85 M/ L 4.63-6.08 HEMOGLOBIN (BEAKER) (test zkcf=582) 8.4 GM/DL 13.7-17.5 HEMATOCRIT (BEAKER) (test kyfh=047) 26.0 % 40.1-51.0 MEAN CORPUSCULAR VOLUME (BEAKER) (test hawc=636) 91.2 fL 79.0-92.2 MEAN CORPUSCULAR HEMOGLOBIN (BEAKER) (test 29.5 pg 25.7-32.2 prgs=030) MEAN CORPUSCULAR HEMOGLOBIN CONC (BEAKER) (test 32.3 GM/DL 32.3-36.5 kjny=281) RED CELL DISTRIBUTION WIDTH (BEAKER) (test 20.4 % 11.6-14.4 ltmf=512) PLATELET COUNT (BEAKER) (test cpnz=753) 117 K/CU MM 150-450 MEAN PLATELET VOLUME (BEAKER) (test kwlo=734) 12.1 fL 9.4-12.4 NUCLEATED RED BLOOD CELLS (BEAKER) (test 0 /100 WBC 0-0 dtod=819) NEUTROPHILS RELATIVE PERCENT (BEAKER) (test 59 % guol=048) LYMPHOCYTES RELATIVE PERCENT (BEAKER) (test 26 % modz=543) MONOCYTES RELATIVE PERCENT (BEAKER) (test 11 % pleh=870) EOSINOPHILS RELATIVE PERCENT (BEAKER) (test 4 % yrqa=303) BASOPHILS RELATIVE PERCENT (BEAKER) (test 0 % ppcp=646) NEUTROPHILS ABSOLUTE COUNT (BEAKER) (test 3.34 K/ L 1.78-5.38 bspy=017) LYMPHOCYTES ABSOLUTE COUNT (BEAKER) (test 1.45 K/ L 1.32-3.57 qmjd=907) MONOCYTES ABSOLUTE COUNT (BEAKER) (test 0.64 K/ L 0.30-0.82 agpy=364) EOSINOPHILS ABSOLUTE COUNT (BEAKER) (test 0.20 K/ L 0.04-0.54 xevj=443) BASOPHILS ABSOLUTE COUNT (BEAKER) (test 0.02 K/ L 0.01-0.08 xpcw=669) IMMATURE GRANULOCYTES-RELATIVE PERCENT (BEAKER) 1 % 0-1 (test yxwu=4036) [id number] 06:07:00 Test Item Value Reference Range Comments PARTIAL THROMBOPLASTIN TIME (BEAKER) (test 91.1 seconds 22.5-36.0 gjfe=051) CALCIUM, [id number] 06:03:00 Test Item Value Reference Range Comments CALCIUM IONIZED (BEAKER) (test ojkr=999) 1.16 mmol/L 1.12-1.27 PH, BLOOD (BEAKER) (test dkny=3821) 7.43 B-TYPE NATRIURETIC FACTOR (BNP)2019-02-11 05:55:00 Test Item Value Reference Range Comments B-TYPE NATRIURETIC PEPTIDE (BEAKER) (test 564 pg/mL 0-100 wwfc=581) [id number] 05:49:00 Test Item Value Reference Range Comments PHOSPHORUS (BEAKER) (test jhvs=057) 2.5 mg/dL 2.3-4.7 [id number] 05:49:00 Test Item Value Reference Range Comments MAGNESIUM (BEAKER) (test ycow=874) 1.8 mg/dL 1.6-2.6 BASIC METABOLIC [id number] 05:49:00 Test Item Value Reference Range Comments SODIUM (BEAKER) (test 144 meq/L 136-145 csrs=321) POTASSIUM (BEAKER) (test 4.3 meq/L 3.5-5.1 ktyp=673) CHLORIDE (BEAKER) (test 111 meq/L 98-107 uchy=117) CO2 (BEAKER) (test 26 meq/L 22-29 ktfm=731) BLOOD UREA NITROGEN 61 mg/dL 7-21 (BEAKER) (test tghi=343) CREATININE (BEAKER) (test 1.47 mg/dL 0.57-1.25 ivdl=373) GLUCOSE RANDOM (BEAKER) 143 mg/dL 70-105 (test eqsz=943) CALCIUM (BEAKER) (test 9.0 mg/dL 8.4-10.2 ockw=754) EGFR (BEAKER) (test 46 mL/min/1.73 sq m ESTIMATED GFR IS NOT uqzj=1362) ACCURATE CREATININE CLEARANCE IN PREDICTING GLOMERULAR FILTRATION RATE. ESTIMATED GFR IS NOT APPLICABLE FOR DIALYSIS PATIENTS. POCT-GLUCOSE [id number] 05:35:00 Test Item Value Reference Range Comments POC-GLUCOSE METER (BEAKER) 131 mg/dL 70-110 : TESTED AT [address] (test fuyf=9625) [facility], [place], [id number]: [employer]boat [employer] Inboard/Outboard/Early [employer] Teacher [id number] for [address] POCT-GLUCOSE [id number] 00:08:00 Test Item Value Reference Range Comments POC-GLUCOSE METER (BEAKER) 175 mg/dL 70-110 : TESTED AT [address] (test drwh=7134) [facility], [place], [address]: Motorboat [employer]ic Inboard/Outboard/Early Head Start Teacher [id number] for SANTHOSH SANDOVAL CBC W/PLT COUNT & AUTO [id number] 17:58:00 Test Item Value Reference Range Comments WHITE BLOOD CELL COUNT (BEAKER) (test imuy=309) 6.8 K/ L 3.5-10.5 RED BLOOD CELL COUNT (BEAKER) (test vknm=116) 3.00 M/ L 4.63-6.08 HEMOGLOBIN (BEAKER) (test oaed=718) 8.8 GM/DL 13.7-17.5 HEMATOCRIT (BEAKER) (test dhgr=988) 27.6 % 40.1-51.0 MEAN CORPUSCULAR VOLUME (BEAKER) (test cfyq=443) 92.0 fL 79.0-92.2 MEAN CORPUSCULAR HEMOGLOBIN (BEAKER) (test 29.3 pg 25.7-32.2 bzfu=741) MEAN CORPUSCULAR HEMOGLOBIN CONC (BEAKER) (test 31.9 GM/DL 32.3-36.5 ursr=069) RED CELL DISTRIBUTION WIDTH (BEAKER) (test 20.2 % 11.6-14.4 vdml=742) PLATELET COUNT (BEAKER) (test ftlb=492) 117 K/CU MM 150-450 MEAN PLATELET VOLUME (BEAKER) (test tkyh=697) 12.7 fL 9.4-12.4 NUCLEATED RED BLOOD CELLS (BEAKER) (test 0 /100 WBC 0-0 gphq=114) NEUTROPHILS RELATIVE PERCENT (BEAKER) (test 62 % cdvx=608) LYMPHOCYTES RELATIVE PERCENT (BEAKER) (test 24 % qstu=104) MONOCYTES RELATIVE PERCENT (BEAKER) (test 10 % huys=412) EOSINOPHILS RELATIVE PERCENT (BEAKER) (test 2 % cmtd=584) BASOPHILS RELATIVE PERCENT (BEAKER) (test 0 % ayyi=607) NEUTROPHILS ABSOLUTE COUNT (BEAKER) (test 4.23 K/ L 1.78-5.38 qssb=792) LYMPHOCYTES ABSOLUTE COUNT (BEAKER) (test 1.66 K/ L 1.32-3.57 tacu=962) MONOCYTES ABSOLUTE COUNT (BEAKER) (test 0.71 K/ L 0.30-0.82 mhad=707) EOSINOPHILS ABSOLUTE COUNT (BEAKER) (test 0.16 K/ L 0.04-0.54 wbyb=046) BASOPHILS ABSOLUTE COUNT (BEAKER) (test 0.02 K/ L 0.01-0.08 ivjh=258) IMMATURE GRANULOCYTES-RELATIVE PERCENT (BEAKER) 1 % 0-1 (test imiw=3730) POCT-GLUCOSE [id number] 17:39:00 Test Item Value Reference Range Comments POC-GLUCOSE METER (BEAKER) 269 mg/dL 70-110 : TESTED AT [address] (test ndso=7495) [facility], [place], [address]: Motorboat [employer]ic Inboard/Outboard/Early Head Start Teacher [id number] for MCKENZIE LAZO POCT-GLUCOSE [id number] 12:07:00 Test Item Value Reference Range Comments POC-GLUCOSE METER (BEAKER) 241 mg/dL 70-110 : TESTED AT [address] (test jmbq=2752) [facility], [place], [address]: Motorboat Mechanic Inboard/Outboard/Early Head Start Teacher [id number] for MCKENZIE LAZO OCCULT BLOOD, [id number] 11:37:00 Test Item Value Reference Range Comments FECAL OCCULT BLOOD (BEAKER) (test ggzl=896) Negative Negative [id number] 11:08:00 Test Item Value Reference Range Comments PARTIAL THROMBOPLASTIN TIME (BEAKER) (test 97.2 seconds 22.5-36.0 fiki=119) BLOOD [id number] 09:00:00 Test Item Value Reference Range Comments CULTURE (BEAKER) (test itks=8962) No growth in 5 days BLOOD [id number] 09:00:00 Test Item Value Reference Range Comments CULTURE (BEAKER) (test tbno=1312) No growth in 5 days POCT-GLUCOSE [id number] 06:59:00 Test Item Value Reference Range Comments POC-GLUCOSE METER (BEAKER) 163 mg/dL 70-110 : TESTED AT [facility] [address] [place] [address] (test rwaw=9925) [facility], [place], [address]: Motorboat Mechanic Inboard/Outboard/Early [employer] Start Teacher [id number] for SANTHOSH SANDOVAL [id number] 05:50:00 Test Item Value Reference Range Comments PHOSPHORUS (BEAKER) (test boil=580) 1.3 mg/dL 2.3-4.7 [id number] 05:38:00 Test Item Value Reference Range Comments MAGNESIUM (BEAKER) (test senw=556) 1.9 mg/dL 1.6-2.6 BASIC METABOLIC [id number] 05:38:00 Test Item Value Reference Range Comments SODIUM (BEAKER) (test 143 meq/L 136-145 mady=128) POTASSIUM (BEAKER) (test 4.0 meq/L 3.5-5.1 oyuq=331) CHLORIDE (BEAKER) (test 109 meq/L 98-107 wljr=554) CO2 (BEAKER) (test 25 meq/L 22-29 qybq=372) BLOOD UREA NITROGEN 61 mg/dL 7-21 (BEAKER) (test tpud=691) CREATININE (BEAKER) (test 1.63 mg/dL 0.57-1.25 chjr=699) GLUCOSE RANDOM (BEAKER) 161 mg/dL 70-105 (test mccz=944) CALCIUM (BEAKER) (test 9.5 mg/dL 8.4-10.2 ibho=163) EGFR (BEAKER) (test 41 mL/min/1.73 sq m ESTIMATED GFR IS NOT ibzq=5790) ACCURATE CREATININE CLEARANCE IN PREDICTING GLOMERULAR FILTRATION RATE. ESTIMATED GFR IS NOT APPLICABLE FOR DIALYSIS PATIENTS. CBC W/PLT COUNT & AUTO [id number] 05:19:00 Test Item Value Reference Range Comments WHITE BLOOD CELL COUNT (BEAKER) (test rmbp=602) 7.3 K/ L 3.5-10.5 RED BLOOD CELL COUNT (BEAKER) (test crgr=238) 3.20 M/ L 4.63-6.08 HEMOGLOBIN (BEAKER) (test qfql=957) 9.3 GM/DL 13.7-17.5 HEMATOCRIT (BEAKER) (test ifaq=059) 29.0 % 40.1-51.0 MEAN CORPUSCULAR VOLUME (BEAKER) (test hwbk=780) 90.6 fL 79.0-92.2 MEAN CORPUSCULAR HEMOGLOBIN (BEAKER) (test 29.1 pg 25.7-32.2 fqad=193) MEAN CORPUSCULAR HEMOGLOBIN CONC (BEAKER) (test 32.1 GM/DL 32.3-36.5 zhkd=225) RED CELL DISTRIBUTION WIDTH (BEAKER) (test 20.2 % 11.6-14.4 nhre=415) PLATELET COUNT (BEAKER) (test nvpu=923) 97 K/CU MM 150-450 MEAN PLATELET VOLUME (BEAKER) (test kxld=782) 12.2 fL 9.4-12.4 NUCLEATED RED BLOOD CELLS (BEAKER) (test 0 /100 WBC 0-0 zqxg=460) NEUTROPHILS RELATIVE PERCENT (BEAKER) (test 68 % nxeh=714) LYMPHOCYTES RELATIVE PERCENT (BEAKER) (test 17 % gmlz=263) MONOCYTES RELATIVE PERCENT (BEAKER) (test 11 % ozkw=433) EOSINOPHILS RELATIVE PERCENT (BEAKER) (test 3 % tlqh=060) BASOPHILS RELATIVE PERCENT (BEAKER) (test 0 % ddtc=474) NEUTROPHILS ABSOLUTE COUNT (BEAKER) (test 4.96 K/ L 1.78-5.38 gmtx=155) LYMPHOCYTES ABSOLUTE COUNT (BEAKER) (test 1.26 K/ L 1.32-3.57 kqho=948) MONOCYTES ABSOLUTE COUNT (BEAKER) (test bztx=429) 0.80 K/ L 0.30-0.82 EOSINOPHILS ABSOLUTE COUNT (BEAKER) (test 0.19 K/ L 0.04-0.54 plrk=227) BASOPHILS ABSOLUTE COUNT (BEAKER) (test fojn=731) 0.02 K/ L 0.01-0.08 IMMATURE GRANULOCYTES-RELATIVE PERCENT (BEAKER) 0 % 0-1 (test leai=6038) [id number] 05:01:00 Test Item Value Reference Range Comments PARTIAL THROMBOPLASTIN TIME (BEAKER) (test 86.4 seconds 22.5-36.0 zsev=278) POCT-GLUCOSE [id number] 23:43:00 Test Item Value Reference Range Comments POC-GLUCOSE METER (BEAKER) 262 mg/dL 70-110 : TESTED AT [address] (test mohk=2204) [facility], [place], [address]: Motorboat Mechanic Inboard/Outboard/Early Head Start Teacher [id number] for JOHNIE MCKEON [id number] 21:51:00 Test Item Value Reference Range Comments PARTIAL THROMBOPLASTIN TIME (BEAKER) (test 115.2 seconds 22.5-36.0 pytt=328) 6 hours after starting heparin infusion and as indicated per sliding scalePOCT- GLUCOSE [id number] 18:44:00 Test Item Value Reference Range Comments POC-GLUCOSE METER (BEAKER) 284 mg/dL 70-110 : TESTED AT [address] (test jily=4386) [facility], [place], [address]: Motorboat Mechanic Inboard/Outboard/Early Head Start Teacher [id number] for ALISSA FERNANDEZ CBC W/PLT COUNT & AUTO [id number] 18:37:00 Test Item Value Reference Range Comments WHITE BLOOD CELL COUNT (BEAKER) (test jwhv=014) 7.8 K/ L 3.5-10.5 RED BLOOD CELL COUNT (BEAKER) (test tjyp=412) 3.16 M/ L 4.63-6.08 HEMOGLOBIN (BEAKER) (test qdsi=056) 9.2 GM/DL 13.7-17.5 HEMATOCRIT (BEAKER) (test cckp=883) 28.6 % 40.1-51.0 MEAN CORPUSCULAR VOLUME (BEAKER) (test scqv=951) 90.5 fL 79.0-92.2 MEAN CORPUSCULAR HEMOGLOBIN (BEAKER) (test 29.1 pg 25.7-32.2 vrns=679) MEAN CORPUSCULAR HEMOGLOBIN CONC (BEAKER) (test 32.2 GM/DL 32.3-36.5 avzu=560) RED CELL DISTRIBUTION WIDTH (BEAKER) (test 19.9 % 11.6-14.4 bvne=181) PLATELET COUNT (BEAKER) (test uedn=498) 110 K/CU MM 150-450 MEAN PLATELET VOLUME (BEAKER) (test hjoc=641) 12.7 fL 9.4-12.4 NUCLEATED RED BLOOD CELLS (BEAKER) (test 0 /100 WBC 0-0 stbv=987) NEUTROPHILS RELATIVE PERCENT (BEAKER) (test 70 % zrad=159) LYMPHOCYTES RELATIVE PERCENT (BEAKER) (test 18 % llrh=791) MONOCYTES RELATIVE PERCENT (BEAKER) (test 9 % smhh=938) EOSINOPHILS RELATIVE PERCENT (BEAKER) (test 2 % iiux=633) BASOPHILS RELATIVE PERCENT (BEAKER) (test 0 % ylxf=600) NEUTROPHILS ABSOLUTE COUNT (BEAKER) (test 5.45 K/ L 1.78-5.38 wbxp=951) LYMPHOCYTES ABSOLUTE COUNT (BEAKER) (test 1.44 K/ L 1.32-3.57 xzxb=082) MONOCYTES ABSOLUTE COUNT (BEAKER) (test 0.68 K/ L 0.30-0.82 szsb=395) EOSINOPHILS ABSOLUTE COUNT (BEAKER) (test 0.18 K/ L 0.04-0.54 uavd=302) BASOPHILS ABSOLUTE COUNT (BEAKER) (test 0.02 K/ L 0.01-0.08 vgbd=368) IMMATURE GRANULOCYTES-RELATIVE PERCENT (BEAKER) 1 % 0-1 (test lxcz=2690) [id number] 14:11:00 Test Item Value Reference Range Comments PARTIAL THROMBOPLASTIN TIME (BEAKER) (test 41.9 seconds 22.5-36.0 kirh=464) Prior to initiating heparinPOCT-GLUCOSE [id number] 11:52:00 Test Item Value Reference Range Comments POC-GLUCOSE METER (BEAKER) 219 mg/dL 70-110 : [facility] [place] [address] [facility] (test klpy=1817) [facility], [place], [address]: Motorboat Mechanic Inboard/Outboard/Early Head Start Teacher [id number] for ALISSA FERNANDEZ VANCOMYCIN LEVEL, [id number] 11:02:00 Test Item Value Reference Range Comments VANCOMYCIN TROUGH (BEAKER) (test ywqw=763) 14.7 ug/mL 10.0-20.0 Draw 30 min prior to scheduled dose, HOLD if level > 20 mcg/mL, inform .POCT-GLUCOSE [id number] 06:58:00 Test Item Value Reference Range Comments POC-GLUCOSE METER (BEAKER) 219 mg/dL 70-110 : TESTED AT [facility] [address] [facility] (test irmo=9397) [facility], [place], [address]: Motorboat Mechanic Inboard/Outboard/Early Head Start Teacher [id number] for JOHNIE MCKEON [id number] 06:40:00 Test Item Value Reference Range Comments PHOSPHORUS (BEAKER) (test bqbi=919) 1.5 mg/dL 2.3-4.7 [id number] 06:33:00 Test Item Value Reference Range Comments MAGNESIUM (BEAKER) (test rvvi=060) 1.9 mg/dL 1.6-2.6 BASIC METABOLIC [id number] 06:33:00 Test Item Value Reference Range Comments SODIUM (BEAKER) (test 143 meq/L 136-145 avyb=441) POTASSIUM (BEAKER) (test 3.9 meq/L 3.5-5.1 mmhi=842) CHLORIDE (BEAKER) (test 111 meq/L 98-107 vtca=946) CO2 (BEAKER) (test 22 meq/L 22-29 wtvz=061) BLOOD UREA NITROGEN 64 mg/dL 7-21 (BEAKER) (test tftg=338) CREATININE (BEAKER) (test 1.66 mg/dL 0.57-1.25 bzbt=700) GLUCOSE RANDOM (BEAKER) 212 mg/dL 70-105 (test orwm=843) CALCIUM (BEAKER) (test 9.4 mg/dL 8.4-10.2 zydw=161) EGFR (BEAKER) (test 40 mL/min/1.73 sq m ESTIMATED GFR IS NOT wpnj=5241) ACCURATE CREATININE CLEARANCE IN PREDICTING GLOMERULAR FILTRATION RATE. ESTIMATED GFR IS NOT APPLICABLE FOR DIALYSIS PATIENTS. CBC W/PLT COUNT & AUTO [id number] 05:23:00 Test Item Value Reference Range Comments WHITE BLOOD CELL COUNT (BEAKER) (test mcfz=886) 7.5 K/ L 3.5-10.5 RED BLOOD CELL COUNT (BEAKER) (test rldw=447) 3.22 M/ L 4.63-6.08 HEMOGLOBIN (BEAKER) (test ylgn=955) 9.5 GM/DL 13.7-17.5 HEMATOCRIT (BEAKER) (test quau=075) 29.2 % 40.1-51.0 MEAN CORPUSCULAR VOLUME (BEAKER) (test crpr=501) 90.7 fL 79.0-92.2 MEAN CORPUSCULAR HEMOGLOBIN (BEAKER) (test 29.5 pg 25.7-32.2 tfxu=760) MEAN CORPUSCULAR HEMOGLOBIN CONC (BEAKER) (test 32.5 GM/DL 32.3-36.5 zdti=050) RED CELL DISTRIBUTION WIDTH (BEAKER) (test 19.6 % 11.6-14.4 yihk=533) PLATELET COUNT (BEAKER) (test uuws=645) 109 K/CU MM 150-450 MEAN PLATELET VOLUME (BEAKER) (test uouf=574) 12.4 fL 9.4-12.4 NUCLEATED RED BLOOD CELLS (BEAKER) (test 0 /100 WBC 0-0 ilqm=427) NEUTROPHILS RELATIVE PERCENT (BEAKER) (test 74 % npnx=169) LYMPHOCYTES RELATIVE PERCENT (BEAKER) (test 15 % bbrn=247) MONOCYTES RELATIVE PERCENT (BEAKER) (test 8 % bqxg=536) EOSINOPHILS RELATIVE PERCENT (BEAKER) (test 3 % fooh=231) BASOPHILS RELATIVE PERCENT (BEAKER) (test 0 % yhxs=403) NEUTROPHILS ABSOLUTE COUNT (BEAKER) (test 5.54 K/ L 1.78-5.38 yruu=697) LYMPHOCYTES ABSOLUTE COUNT (BEAKER) (test 1.13 K/ L 1.32-3.57 jtkc=734) MONOCYTES ABSOLUTE COUNT (BEAKER) (test 0.61 K/ L 0.30-0.82 jbjs=534) EOSINOPHILS ABSOLUTE COUNT (BEAKER) (test 0.20 K/ L 0.04-0.54 ghzu=375) BASOPHILS ABSOLUTE COUNT (BEAKER) (test 0.02 K/ L 0.01-0.08 qyfv=768) IMMATURE GRANULOCYTES-RELATIVE PERCENT (BEAKER) 0 % 0-1 (test xtkb=0607) POCT-GLUCOSE [id number] 18:21:00 Test Item Value Reference Range Comments POC-GLUCOSE METER (BEAKER) 202 mg/dL 70-110 : TESTED AT [facility] [address] [facility] (test wlqd=7127) [facility], [place], [address]: Motorboat Mechanic Inboard/Outboard/Early Head Start Teacher [id number] for GENE MENDENHALL POCT-GLUCOSE [id number] 14:02:00 Test Item Value Reference Range Comments POC-GLUCOSE METER (BEAKER) 261 mg/dL 70-110 : Notified RN/MD: TESTED AT (test qvoi=9460) [facility] [address] [facility], [address]: Motorboat Mechanic Inboard/Outboard/Early Head Start Teacher [id number] for ANITA WRIGHT BODY FLUID CULTURE + GRAM [id number] 12:32:00 Test Item Value Reference Range Comments CULTURE (BEAKER) (test eqrj=7528) No growth GRAM STAIN RESULT (BEAKER) (test 1+ White blood cells seen fleh=0687) GRAM STAIN RESULT (BEAKER) (test No organisms seen vijc=14912) [id number] 08:41:00 Test Item Value Reference Range Comments MAGNESIUM (BEAKER) (test ijhg=758) 2.1 mg/dL 1.6-2.6 [id number] 08:06:00 Test Item Value Reference Range Comments PHOSPHORUS (BEAKER) (test bpol=405) 2.8 mg/dL 2.3-4.7 COMPREHENSIVE METABOLIC [id number] 08:06:00 Test Item Value Reference Range Comments TOTAL PROTEIN (BEAKER) 5.8 gm/dL 6.0-8.3 (test taql=643) ALBUMIN (BEAKER) (test 3.9 g/dL 3.5-5.0 ngmc=6657) ALKALINE PHOSPHATASE 109 U/L 40-150 (BEAKER) (test obmj=962) BILIRUBIN TOTAL (BEAKER) 1.7 mg/dL 0.2-1.2 (test npfc=476) SODIUM (BEAKER) (test 141 meq/L 136-145 frgr=632) POTASSIUM (BEAKER) (test 3.3 meq/L 3.5-5.1 hzyr=736) CHLORIDE (BEAKER) (test 107 meq/L 98-107 fgjq=267) CO2 (BEAKER) (test 25 meq/L 22-29 thmt=692) BLOOD UREA NITROGEN 74 mg/dL 7-21 (BEAKER) (test twwq=042) CREATININE (BEAKER) (test 1.97 mg/dL 0.57-1.25 aqac=861) GLUCOSE RANDOM (BEAKER) 252 mg/dL 70-105 (test qlxb=113) CALCIUM (BEAKER) (test 9.7 mg/dL 8.4-10.2 fuum=744) AST (SGOT) (BEAKER) (test 13 U/L 5-34 ybcf=204) ALT (SGPT) (BEAKER) (test 11 U/L 6-55 izcf=576) EGFR (BEAKER) (test 33 mL/min/1.73 sq m ESTIMATED GFR IS NOT whiq=6058) ACCURATE CREATININE CLEARANCE IN PREDICTING GLOMERULAR FILTRATION RATE. ESTIMATED GFR IS NOT APPLICABLE FOR DIALYSIS PATIENTS. BASIC METABOLIC [id number] 08:06:00 Test Item Value Reference Range Comments SODIUM (BEAKER) (test 141 meq/L 136-145 okrd=150) POTASSIUM (BEAKER) (test 3.3 meq/L 3.5-5.1 axir=441) CHLORIDE (BEAKER) (test 107 meq/L 98-107 yvep=071) CO2 (BEAKER) (test 25 meq/L 22-29 bzzz=834) BLOOD UREA NITROGEN 74 mg/dL 7-21 (BEAKER) (test uibw=779) CREATININE (BEAKER) (test 1.97 mg/dL 0.57-1.25 adeh=651) GLUCOSE RANDOM (BEAKER) 252 mg/dL 70-105 (test ukgx=271) CALCIUM (BEAKER) (test 9.7 mg/dL 8.4-10.2 rgay=377) EGFR (BEAKER) (test 33 mL/min/1.73 sq m ESTIMATED GFR IS NOT tidt=6180) ACCURATE CREATININE CLEARANCE IN PREDICTING GLOMERULAR FILTRATION RATE. ESTIMATED GFR IS NOT APPLICABLE FOR DIALYSIS PATIENTS. CALCIUM, [id number] 07:45:00 Test Item Value Reference Range Comments CALCIUM IONIZED (BEAKER) (test kbep=707) 1.16 mmol/L 1.12-1.27 PH, BLOOD (BEAKER) (test jyza=3643) 7.39 CBC W/PLT COUNT & AUTO [id number] 07:43:00 Test Item Value Reference Range Comments WHITE BLOOD CELL COUNT (BEAKER) (test fexp=601) 8.5 K/ L 3.5-10.5 RED BLOOD CELL COUNT (BEAKER) (test oryi=413) 3.14 M/ L 4.63-6.08 HEMOGLOBIN (BEAKER) (test vupt=701) 9.2 GM/DL 13.7-17.5 HEMATOCRIT (BEAKER) (test apts=872) 28.4 % 40.1-51.0 MEAN CORPUSCULAR VOLUME (BEAKER) (test txsd=006) 90.4 fL 79.0-92.2 MEAN CORPUSCULAR HEMOGLOBIN (BEAKER) (test 29.3 pg 25.7-32.2 iwub=486) MEAN CORPUSCULAR HEMOGLOBIN CONC (BEAKER) (test 32.4 GM/DL 32.3-36.5 ilms=724) RED CELL DISTRIBUTION WIDTH (BEAKER) (test 19.4 % 11.6-14.4 ejwj=292) PLATELET COUNT (BEAKER) (test pwxn=638) 108 K/CU MM 150-450 MEAN PLATELET VOLUME (BEAKER) (test pjgo=904) 12.8 fL 9.4-12.4 NUCLEATED RED BLOOD CELLS (BEAKER) (test 0 /100 WBC 0-0 pyws=312) NEUTROPHILS RELATIVE PERCENT (BEAKER) (test 79 % tchq=763) LYMPHOCYTES RELATIVE PERCENT (BEAKER) (test 13 % fbgn=288) MONOCYTES RELATIVE PERCENT (BEAKER) (test 5 % nmtd=463) EOSINOPHILS RELATIVE PERCENT (BEAKER) (test 3 % wnre=207) BASOPHILS RELATIVE PERCENT (BEAKER) (test 0 % uxts=977) NEUTROPHILS ABSOLUTE COUNT (BEAKER) (test 6.70 K/ L 1.78-5.38 jbre=389) LYMPHOCYTES ABSOLUTE COUNT (BEAKER) (test 1.12 K/ L 1.32-3.57 jfoz=411) MONOCYTES ABSOLUTE COUNT (BEAKER) (test 0.41 K/ L 0.30-0.82 pxnf=796) EOSINOPHILS ABSOLUTE COUNT (BEAKER) (test 0.22 K/ L 0.04-0.54 vgwh=420) BASOPHILS ABSOLUTE COUNT (BEAKER) (test 0.01 K/ L 0.01-0.08 wmhr=337) IMMATURE GRANULOCYTES-RELATIVE PERCENT (BEAKER) 0 % 0-1 (test jfcx=7161) CBC W/PLT COUNT & AUTO [id number] 07:42:00 Test Item Value Reference Range Comments WHITE BLOOD CELL COUNT (BEAKER) (test apuy=652) 8.4 K/ L 3.5-10.5 RED BLOOD CELL COUNT (BEAKER) (test lsgs=745) 3.12 M/ L 4.63-6.08 HEMOGLOBIN (BEAKER) (test dsvy=058) 9.2 GM/DL 13.7-17.5 HEMATOCRIT (BEAKER) (test ajoi=680) 28.2 % 40.1-51.0 MEAN CORPUSCULAR VOLUME (BEAKER) (test sfqp=058) 90.4 fL 79.0-92.2 MEAN CORPUSCULAR HEMOGLOBIN (BEAKER) (test 29.5 pg 25.7-32.2 hjdm=119) MEAN CORPUSCULAR HEMOGLOBIN CONC (BEAKER) (test 32.6 GM/DL 32.3-36.5 aevv=308) RED CELL DISTRIBUTION WIDTH (BEAKER) (test 19.2 % 11.6-14.4 dnfd=057) PLATELET COUNT (BEAKER) (test oycq=634) 101 K/CU MM 150-450 MEAN PLATELET VOLUME (BEAKER) (test iwwr=072) 11.9 fL 9.4-12.4 NUCLEATED RED BLOOD CELLS (BEAKER) (test 0 /100 WBC 0-0 jddf=006) NEUTROPHILS RELATIVE PERCENT (BEAKER) (test 80 % dbqx=207) LYMPHOCYTES RELATIVE PERCENT (BEAKER) (test 13 % hlqn=106) MONOCYTES RELATIVE PERCENT (BEAKER) (test 5 % gzvu=878) EOSINOPHILS RELATIVE PERCENT (BEAKER) (test 2 % eedc=290) BASOPHILS RELATIVE PERCENT (BEAKER) (test 0 % zqnd=232) NEUTROPHILS ABSOLUTE COUNT (BEAKER) (test 6.67 K/ L 1.78-5.38 zjjr=369) LYMPHOCYTES ABSOLUTE COUNT (BEAKER) (test 1.07 K/ L 1.32-3.57 aecn=736) MONOCYTES ABSOLUTE COUNT (BEAKER) (test 0.39 K/ L 0.30-0.82 qjcl=646) EOSINOPHILS ABSOLUTE COUNT (BEAKER) (test 0.20 K/ L 0.04-0.54 bfqf=789) BASOPHILS ABSOLUTE COUNT (BEAKER) (test 0.02 K/ L 0.01-0.08 ghqb=753) IMMATURE GRANULOCYTES-RELATIVE PERCENT (BEAKER) 0 % 0-1 (test iyhv=3378) POCT-GLUCOSE [id number] 07:06:00 Test Item Value Reference Range Comments POC-GLUCOSE METER (BEAKER) 233 mg/dL 70-110 : TESTED AT [facility] [address] [facility] (test tftu=2667) [facility], [place], [address]: Motorboat Mechanic Inboard/Outboard/Early Head Start Teacher HJ=[id number] for JOHNIE MCKEON CBC W/PLT COUNT & AUTO [id number] 00:48:00 Test Item Value Reference Range Comments WHITE BLOOD CELL COUNT (BEAKER) (test vfnm=218) 10.2 K/ L 3.5-10.5 RED BLOOD CELL COUNT (BEAKER) (test rtjr=488) 3.27 M/ L 4.63-6.08 HEMOGLOBIN (BEAKER) (test wkoq=238) 9.7 GM/DL 13.7-17.5 HEMATOCRIT (BEAKER) (test gvfg=138) 29.3 % 40.1-51.0 MEAN CORPUSCULAR VOLUME (BEAKER) (test hpcz=370) 89.6 fL 79.0-92.2 MEAN CORPUSCULAR HEMOGLOBIN (BEAKER) (test 29.7 pg 25.7-32.2 ctez=762) MEAN CORPUSCULAR HEMOGLOBIN CONC (BEAKER) (test 33.1 GM/DL 32.3-36.5 jgor=989) RED CELL DISTRIBUTION WIDTH (BEAKER) (test 18.8 % 11.6-14.4 bjsk=269) PLATELET COUNT (BEAKER) (test vmvs=044) 102 K/CU MM 150-450 MEAN PLATELET VOLUME (BEAKER) (test eaeu=938) 11.4 fL 9.4-12.4 NUCLEATED RED BLOOD CELLS (BEAKER) (test 0 /100 WBC 0-0 rnai=500) NEUTROPHILS RELATIVE PERCENT (BEAKER) (test 82 % weue=155) LYMPHOCYTES RELATIVE PERCENT (BEAKER) (test 11 % mdzx=377) MONOCYTES RELATIVE PERCENT (BEAKER) (test 5 % sskg=042) EOSINOPHILS RELATIVE PERCENT (BEAKER) (test 1 % wzzl=330) BASOPHILS RELATIVE PERCENT (BEAKER) (test 0 % tjcd=707) NEUTROPHILS ABSOLUTE COUNT (BEAKER) (test 8.37 K/ L 1.78-5.38 glzs=259) LYMPHOCYTES ABSOLUTE COUNT (BEAKER) (test 1.14 K/ L 1.32-3.57 hsqi=540) MONOCYTES ABSOLUTE COUNT (BEAKER) (test 0.49 K/ L 0.30-0.82 boho=103) EOSINOPHILS ABSOLUTE COUNT (BEAKER) (test 0.11 K/ L 0.04-0.54 qphp=417) BASOPHILS ABSOLUTE COUNT (BEAKER) (test 0.01 K/ L 0.01-0.08 zooi=492) IMMATURE GRANULOCYTES-RELATIVE PERCENT (BEAKER) 1 % 0-1 (test yawt=8556) POCT-GLUCOSE [id number] 00:39:00 Test Item Value Reference Range Comments POC-GLUCOSE METER (BEAKER) 305 mg/dL 70-110 : TESTED AT [address] (test rkan=7287) [facility], [place], [address]: Motorboat Mechanic Inboard/Outboard/Early Head Start Teacher [id number] for JOHNIE MCKEON POCT-GLUCOSE [id number] 21:30:00 Test Item Value Reference Range Comments POC-GLUCOSE METER (BEAKER) 258 mg/dL 70-110 : TESTED AT [address] (test paws=5775) [facility], [place], [address]: Motorboat Mechanic Inboard/Outboard/Early Head Start Teacher [id number] for MELCHOR MAXIMILIANBELA RAD, ABDOMEN/KUB, 1 VIEW [id number] 12:11:00Reason for exam:->corpak placement,abdominal distensionShould this be performed at the bedside?-> YesFINAL REPORT RAD, ABDOMEN/KUB, 1 VIEW AP INDICATION: corpak placement,abdominal distension COMPARISON: None TECHNIQUE: Limited portable radiograph of the lower chest and upper abdomen was acquired for purposes of evaluating feeding tube placement FINDINGS:Feeding tube is coiled within the stomach with tip pointing retrograde toward the fundus. Stomach is air-filled. Signed: Familia Fuchs MDReport Verified Date/Time: 02/07/2019 12: 11:54 Reading Location: [facility] Radiology Reading Room POCT-GLUCOSE [id number] 11:13:00 Test Item Value Reference Range Comments POC-GLUCOSE METER (BEAKER) 227 mg/dL 70-110 : TESTED AT [facility] [address] [facility] (test deun=0615) [facility], [place], [address]: Motorboat Mechanic Inboard/Outboard/Early Head Start Teacher [id number] for THANH ROCHE VANCOMYCIN LEVEL, [id number] 09:42:00 Test Item Value Reference Range Comments VANCOMYCIN RANDOM (BEAKER) (test fnme=109) 10.0 ug/mL Reference Range: No NormalsCBC W/PLT COUNT & AUTO [id number] 09: 30:00 Test Item Value Reference Range Comments WHITE BLOOD CELL COUNT (BEAKER) (test vldt=861) 9.4 K/ L 3.5-10.5 RED BLOOD CELL COUNT (BEAKER) (test rmdz=776) 3.18 M/ L 4.63-6.08 HEMOGLOBIN (BEAKER) (test hpnx=859) 9.3 GM/DL 13.7-17.5 HEMATOCRIT (BEAKER) (test rtug=920) 28.2 % 40.1-51.0 MEAN CORPUSCULAR VOLUME (BEAKER) (test pgkl=830) 88.7 fL 79.0-92.2 MEAN CORPUSCULAR HEMOGLOBIN (BEAKER) (test 29.2 pg 25.7-32.2 emsc=964) MEAN CORPUSCULAR HEMOGLOBIN CONC (BEAKER) (test 33.0 GM/DL 32.3-36.5 qisn=574) RED CELL DISTRIBUTION WIDTH (BEAKER) (test 18.8 % 11.6-14.4 gzep=947) PLATELET COUNT (BEAKER) (test cytm=246) 106 K/CU MM 150-450 MEAN PLATELET VOLUME (BEAKER) (test cxqf=684) 12.6 fL 9.4-12.4 NUCLEATED RED BLOOD CELLS (BEAKER) (test 0 /100 WBC 0-0 qydi=785) NEUTROPHILS RELATIVE PERCENT (BEAKER) (test 82 % rboa=133) LYMPHOCYTES RELATIVE PERCENT (BEAKER) (test 13 % rpxp=674) MONOCYTES RELATIVE PERCENT (BEAKER) (test 4 % akgi=545) EOSINOPHILS RELATIVE PERCENT (BEAKER) (test 0 % tgrr=393) BASOPHILS RELATIVE PERCENT (BEAKER) (test 0 % ckmh=195) NEUTROPHILS ABSOLUTE COUNT (BEAKER) (test 7.71 K/ L 1.78-5.38 pgvb=350) LYMPHOCYTES ABSOLUTE COUNT (BEAKER) (test 1.24 K/ L 1.32-3.57 ibvl=647) MONOCYTES ABSOLUTE COUNT (BEAKER) (test 0.41 K/ L 0.30-0.82 scao=297) EOSINOPHILS ABSOLUTE COUNT (BEAKER) (test 0.02 K/ L 0.04-0.54 pgws=470) BASOPHILS ABSOLUTE COUNT (BEAKER) (test 0.00 K/ L 0.01-0.08 gudj=827) IMMATURE GRANULOCYTES-RELATIVE PERCENT (BEAKER) 0 % 0-1 (test nylh=2893) POCT-GLUCOSE [id number] 08:09:00 Test Item Value Reference Range Comments POC-GLUCOSE METER (BEAKER) 204 mg/dL 70-110 : TESTED AT [facility] [address] [facility] (test hdjb=5673) [facility], [place], [id number]: Motorboat Mechanic Inboard/Outboard/Early Head Start Teacher [id number] for THANH ROCHE COMPREHENSIVE METABOLIC [id number] 06:37:00 Test Item Value Reference Range Comments TOTAL PROTEIN (BEAKER) 5.3 gm/dL 6.0-8.3 (test vbdd=059) ALBUMIN (BEAKER) (test 3.3 g/dL 3.5-5.0 odkr=2607) ALKALINE PHOSPHATASE 108 U/L 40-150 (BEAKER) (test tvsv=947) BILIRUBIN TOTAL (BEAKER) 1.9 mg/dL 0.2-1.2 (test fofa=519) SODIUM (BEAKER) (test 141 meq/L 136-145 qwes=954) POTASSIUM (BEAKER) (test 3.7 meq/L 3.5-5.1 awvk=652) CHLORIDE (BEAKER) (test 108 meq/L 98-107 hmbt=647) CO2 (BEAKER) (test 22 meq/L 22-29 dkbj=844) BLOOD UREA NITROGEN 76 mg/dL 7-21 (BEAKER) (test egix=244) CREATININE (BEAKER) (test 1.86 mg/dL 0.57-1.25 dqhg=579) GLUCOSE RANDOM (BEAKER) 183 mg/dL 70-105 (test mclt=329) CALCIUM (BEAKER) (test 9.4 mg/dL 8.4-10.2 hmxl=577) AST (SGOT) (BEAKER) (test 18 U/L 5-34 bagp=729) ALT (SGPT) (BEAKER) (test 14 U/L 6-55 xvmr=980) EGFR (BEAKER) (test 35 mL/min/1.73 sq m ESTIMATED GFR IS NOT noep=6827) ACCURATE CREATININE CLEARANCE IN PREDICTING GLOMERULAR FILTRATION RATE. ESTIMATED GFR IS NOT APPLICABLE FOR DIALYSIS PATIENTS. LACTIC ACID, [id number] 06:37:00 Test Item Value Reference Range Comments LACTATE BLOOD VENOUS (2) 1.6 mmol/L 0.5-2.2 Specimen slightly hemolyzed (BEAKER) (test ogtq=4887) POCT-GLUCOSE [id number] 06:29:00 Test Item Value Reference Range Comments POC-GLUCOSE METER (BEAKER) 178 mg/dL 70-110 : TESTED AT [facility] [address] [facility] (test pdrh=6516) [facility], [place], [id number]: Motorboat Mechanic Inboard/Outboard/Early Head Start Teacher [id number] for CIERA RODRIGUEZ CALCIUM, [id number] 06:29:00 Test Item Value Reference Range Comments CALCIUM IONIZED (BEAKER) (test ksct=901) 1.21 mmol/L 1.12-1.27 PH, BLOOD (BEAKER) (test bfkj=1444) 7.46 [id number] 06:11:00 Test Item Value Reference Range Comments PHOSPHORUS (BEAKER) (test ntbh=888) 2.8 mg/dL 2.3-4.7 [id number] 06:11:00 Test Item Value Reference Range Comments MAGNESIUM (BEAKER) (test cphd=641) 2.1 mg/dL 1.6-2.6 BASIC METABOLIC [id number] 06:11:00 Test Item Value Reference Range Comments SODIUM (BEAKER) (test 141 meq/L 136-145 vvna=675) POTASSIUM (BEAKER) (test 3.7 meq/L 3.5-5.1 angw=143) CHLORIDE (BEAKER) (test 108 meq/L 98-107 zvwf=253) CO2 (BEAKER) (test 22 meq/L 22-29 qbex=113) BLOOD UREA NITROGEN 76 mg/dL 7-21 (BEAKER) (test iugf=699) CREATININE (BEAKER) (test 1.86 mg/dL 0.57-1.25 wfkx=534) GLUCOSE RANDOM (BEAKER) 183 mg/dL 70-105 (test wbun=493) CALCIUM (BEAKER) (test 9.4 mg/dL 8.4-10.2 cuhz=232) EGFR (BEAKER) (test 35 mL/min/1.73 sq m ESTIMATED GFR IS NOT htya=6892) ACCURATE CREATININE CLEARANCE IN PREDICTING GLOMERULAR FILTRATION RATE. ESTIMATED GFR IS NOT APPLICABLE FOR DIALYSIS PATIENTS. CBC W/PLT COUNT & AUTO [id number] 05:26:00 Test Item Value Reference Range Comments WHITE BLOOD CELL COUNT (BEAKER) (test zqgk=879) 9.4 K/ L 3.5-10.5 RED BLOOD CELL COUNT (BEAKER) (test otiw=102) 3.05 M/ L 4.63-6.08 HEMOGLOBIN (BEAKER) (test iofy=884) 9.1 GM/DL 13.7-17.5 HEMATOCRIT (BEAKER) (test xslx=106) 26.6 % 40.1-51.0 MEAN CORPUSCULAR VOLUME (BEAKER) (test ufao=849) 87.2 fL 79.0-92.2 MEAN CORPUSCULAR HEMOGLOBIN (BEAKER) (test 29.8 pg 25.7-32.2 hwfk=383) MEAN CORPUSCULAR HEMOGLOBIN CONC (BEAKER) (test 34.2 GM/DL 32.3-36.5 jevm=482) RED CELL DISTRIBUTION WIDTH (BEAKER) (test 18.6 % 11.6-14.4 bcpr=643) PLATELET COUNT (BEAKER) (test wxrh=399) 99 K/CU MM 150-450 MEAN PLATELET VOLUME (BEAKER) (test asqr=589) 12.1 fL 9.4-12.4 NUCLEATED RED BLOOD CELLS (BEAKER) (test 0 /100 WBC 0-0 esni=137) NEUTROPHILS RELATIVE PERCENT (BEAKER) (test 80 % xzhv=229) LYMPHOCYTES RELATIVE PERCENT (BEAKER) (test 14 % byjb=864) MONOCYTES RELATIVE PERCENT (BEAKER) (test 5 % ggdm=385) EOSINOPHILS RELATIVE PERCENT (BEAKER) (test 0 % bjkp=637) BASOPHILS RELATIVE PERCENT (BEAKER) (test 0 % vghs=872) NEUTROPHILS ABSOLUTE COUNT (BEAKER) (test 7.50 K/ L 1.78-5.38 ylpg=203) LYMPHOCYTES ABSOLUTE COUNT (BEAKER) (test 1.33 K/ L 1.32-3.57 ddpy=190) MONOCYTES ABSOLUTE COUNT (BEAKER) (test qpjh=594) 0.47 K/ L 0.30-0.82 EOSINOPHILS ABSOLUTE COUNT (BEAKER) (test 0.01 K/ L 0.04-0.54 dinw=700) BASOPHILS ABSOLUTE COUNT (BEAKER) (test dths=386) 0.01 K/ L 0.01-0.08 IMMATURE GRANULOCYTES-RELATIVE PERCENT (BEAKER) 1 % 0-1 (test hpqe=2189) POCT-GLUCOSE [id number] 00:19:00 Test Item Value Reference Range Comments POC-GLUCOSE METER (BEAKER) 109 mg/dL 70-110 : TESTED AT [address] (test pdxy=4520) [facility], [place], [address]: Motorboat Mechanic Inboard/Outboard/Early Head Start Teacher [id number] for CIERA RODRIGUEZ BASIC METABOLIC [id number] 23:09:00 Test Item Value Reference Range Comments SODIUM (BEAKER) (test 139 meq/L 136-145 ujnn=853) POTASSIUM (BEAKER) (test 3.7 meq/L 3.5-5.1 kzth=038) CHLORIDE (BEAKER) (test 105 meq/L 98-107 krzp=087) CO2 (BEAKER) (test 24 meq/L 22-29 jlyo=271) BLOOD UREA NITROGEN 75 mg/dL 7-21 (BEAKER) (test rmrn=810) CREATININE (BEAKER) (test 1.97 mg/dL 0.57-1.25 xeoo=016) GLUCOSE RANDOM (BEAKER) 102 mg/dL 70-105 (test xetp=844) CALCIUM (BEAKER) (test 10.2 mg/dL 8.4-10.2 hlpw=577) EGFR (BEAKER) (test 33 mL/min/1.73 sq m ESTIMATED GFR IS NOT givz=4797) ACCURATE CREATININE CLEARANCE IN PREDICTING GLOMERULAR FILTRATION RATE. ESTIMATED GFR IS NOT APPLICABLE FOR DIALYSIS PATIENTS. Specimen slightly ictericPOCT-GLUCOSE [id number] 22:53:00 Test Item Value Reference Range Comments POC-GLUCOSE METER (BEAKER) 96 mg/dL 70-110 : TESTED AT [place] [id number] (test clpt=8563) [facility], [place], [address]: Motorboat Mechanic Inboard/Outboard/Early Head Start Teacher [id number] for CIERA RODRIGUEZ [id number] 21:34:00 Test Item Value Reference Range Comments PROCALCITONIN (BEAKER) (test pbvk=5823) 2.02 ng/mL <0.05 SEPSIS RISK (ng/mL)Low: 0.05-0.50Intermediate: 0.51-2.00High: & gt;=[id number] 21:21:00 Test Item Value Reference Range Comments PHOSPHORUS (BEAKER) (test rhro=595) 1.4 mg/dL 2.3-4.7 [id number] 21:17:00 Test Item Value Reference Range Comments MAGNESIUM (BEAKER) (test satb=257) 1.6 mg/dL 1.6-2.6 CBC W/PLT COUNT & AUTO [id number] 21:07:00 Test Item Value Reference Range Comments WHITE BLOOD CELL COUNT (BEAKER) (test nnxl=629) 6.7 K/ L 3.5-10.5 RED BLOOD CELL COUNT (BEAKER) (test wajh=994) 2.56 M/ L 4.63-6.08 HEMOGLOBIN (BEAKER) (test wmhi=281) 7.6 GM/DL 13.7-17.5 HEMATOCRIT (BEAKER) (test vlyf=693) 22.9 % 40.1-51.0 MEAN CORPUSCULAR VOLUME (BEAKER) (test pwlf=689) 89.5 fL 79.0-92.2 MEAN CORPUSCULAR HEMOGLOBIN (BEAKER) (test 29.7 pg 25.7-32.2 qzdv=261) MEAN CORPUSCULAR HEMOGLOBIN CONC (BEAKER) (test 33.2 GM/DL 32.3-36.5 faxl=853) RED CELL DISTRIBUTION WIDTH (BEAKER) (test 18.9 % 11.6-14.4 smie=878) PLATELET COUNT (BEAKER) (test uxmq=898) 83 K/CU MM 150-450 MEAN PLATELET VOLUME (BEAKER) (test yxmj=105) 11.4 fL 9.4-12.4 NUCLEATED RED BLOOD CELLS (BEAKER) (test 0 /100 WBC 0-0 sqas=264) POCT-GLUCOSE [id number] 19:18:00 Test Item Value Reference Range Comments POC-GLUCOSE METER (BEAKER) 91 mg/dL 70-110 : TESTED AT [facility] [address] [facility] (test himd=7631) [facility], [place], [address]: Motorboat Mechanic Inboard/Outboard/Early Head Start Teacher [id number] for NINOSKA GUZMAN POCT-GLUCOSE [id number] 18:51:00 Test Item Value Reference Range Comments POC-GLUCOSE METER (BEAKER) 53 mg/dL 70-110 : Notified RN/MD: TESTED AT (test knbn=0413) [facility] [address] [facility], [address]: Motorboat Mechanic Inboard/Outboard/Early Head Start Teacher [id number] for THANH ROCHE (CELLAVISION MANUAL DIFF)2019-02-06 17:23:00 Test Item Value Reference Range Comments NEUTROPHILS - REL (CELLAVISION)(BEAKER) (test 88 % xeng=4954) LYMPHOCYTES - REL (CELLAVISION)(BEAKER) (test 7 % wqyr=3623) MONOCYTES - REL (CELLAVISION)(BEAKER) (test 1 % phof=9781) EOSINOPHILS - REL (CELLAVISION)(BEAKER) (test 1 % fixh=6404) BANDS - REL (CELLAVISION)(BEAKER) (test dmyd=4353) 3 % 0-10 NEUTROPHILS - ABS (CELLAVISION)(BEAKER) (test 8.71 K/ul 1.78-5.38 bdev=4398) LYMPHOCYTES - ABS (CELLAVISION)(BEAKER) (test 0.69 K/ul 1.32-3.57 hrgg=1821) MONOCYTES - ABS (CELLAVISION)(BEAKER) (test 0.10 K/uL 0.30-0.82 hrxz=9714) EOSINOPHILS - ABS (CELLAVISION)(BEAKER) (test 0.10 K/uL 0.04-0.54 mxwc=2236) BANDS - ABS (CELLAVISION)(BEAKER) (test yrkf=0739) 0.30 K/uL 0.00-0.80 TOTAL COUNTED (BEAKER) (test nznb=0259) 100 WBC MORPHOLOGY (BEAKER) (test ohmu=956) Normal PLT MORPHOLOGY (BEAKER) (test tmxx=703) Normal ANISOCYTOSIS (BEAKER) (test rixz=119) 1+ few MACROCYTES (BEAKER) (test mzey=251) 1+ few POIKILOCYTES (BEAKER) (test cfex=852) 1+ few TARGET CELLS (BEAKER) (test uepx=072) 1+ few WALT CELLS (BEAKER) (test zjzi=212) 1+ few ARTIFACT (CELLAVISION)(BEAKER) (test zxla=6284) Present PLATELET CONCENTRATION (CELLAVISION)(BEAKER) (test Decreased bqye=4904) Received comment: User comments: Slide comments:CBC W/PLT COUNT & AUTO [id number] 16:35:00 Test Item Value Reference Range Comments WHITE BLOOD CELL COUNT (BEAKER) (test nkcx=809) 9.9 K/ L 3.5-10.5 RED BLOOD CELL COUNT (BEAKER) (test rfdl=919) 3.07 M/ L 4.63-6.08 HEMOGLOBIN (BEAKER) (test ezip=596) 9.2 GM/DL 13.7-17.5 HEMATOCRIT (BEAKER) (test wjce=501) 26.7 % 40.1-51.0 MEAN CORPUSCULAR VOLUME (BEAKER) (test wsas=135) 87.0 fL 79.0-92.2 MEAN CORPUSCULAR HEMOGLOBIN (BEAKER) (test 30.0 pg 25.7-32.2 wome=521) MEAN CORPUSCULAR HEMOGLOBIN CONC (BEAKER) (test 34.5 GM/DL 32.3-36.5 cffc=859) RED CELL DISTRIBUTION WIDTH (BEAKER) (test 18.2 % 11.6-14.4 hcke=792) PLATELET COUNT (BEAKER) (test vfkw=048) 114 K/CU MM 150-450 MEAN PLATELET VOLUME (BEAKER) (test njib=690) 11.8 fL 9.4-12.4 NUCLEATED RED BLOOD CELLS (BEAKER) (test 0 /100 WBC 0-0 yeha=214) HEPARIN [id number] 15:20:00 Test Item Value Reference Range Comments HEPARIN ANTIBODY (BEAKER) (test hubn=772) Negative Negative HEPARIN ANTIBODY OD (BEAKER) (test sjny=7963) 0.055 <0.400 4T TOTAL SCORE (BEAKER) (test ijtu=2625) 4 Probability of HIT based on scoring system: 6-8=High probability; 4-5= intermediate probability; 0-3=low probabilityCORTISOL,60 [id number] 13:45:00 Test Item Value Reference Range Comments CORTISOL BASELINE NETWORKED (BEAKER) (test 19.5 mcg/dL wdeb=1646) CORTISOL 30 MINUTE NETWORKED (BEAKER) (test 27.8 mcg/dL qmgr=3184) CORTISOL, 60 MINUTE (BEAKER) (test cqlh=9005) 37.0 ug/dL ACTH STIMULATION TEST INTERPRETATION GUIDELINES(Synonyms: Cortrosyn Test, Cosyntropin or Corticotropin Stimulation Test)Adenocorticotropic hormone (ACTH) is a tropic hormone, made in the pituitary gland, which travels trhough the bloodstream and stimulates the cortex of the adrenal glands to release cortisol. Cortisol is a primary hormone, which aids the body's metabolism of fats, carbohydrates, and protein as well as sodium and potassium regulation.ACTH Stimulation Test: Exogenous administrationof biologically active ACTH stimulates the secretion of cortisol from the adrenal gland. This test is used to evaluate adrenal function by measuring cortisol levels at baseline and at 30 and 60 minutesafter the administration of 250 micrograms of cosyntropin (Cortrosyn). Patients who have received exogenous corticosteroids immediately prior to performing the ACTH Stimulation Test will often have elevated baseline cortisol levels, which may lead to erroneous interpretation of test results. The notable exception is with dexamethasone.Normal Response: An increase in cortisol after stimulation by ACTHis normal. Post-stimulation cortisol concentration should be greater than 20 mcg/dL or the rate of rise from baseline cortisol should be greater than or equal to 9 mcg/dL.Patients with sepsis or septicshock: According to a study by Eliazar et al (MAGALY 2000,283( 8):4297-45), the ACTH Stimulation Test provides important prognostic information. This study defined 3 groups of patients with sepsis or septic shock : 1. Good Survival: Low basal cortisol (<or=34 mcg/dL) and high ACTH response (>9mcg/dL) 2. Intermediate Survival: Low basal cortisol (< 34 mcg/dL) and low response to ACTH (<or=9 mcg/dL) OR High basal cortisol (>34 mcg/dL) or high ACTH response (>9 mcg/dL) 3.Poor Survival: High basal cortisol (>34 mcg/dL) and low ACTH response (<or=9 mcg/dL) .Treatment of patients with relative adrenal dysfunction may be indicated based on test results and the clinical condition of the patient. Additional information, including treatment recommendations, is available in critically ill patients, approved by the Pharmacy, Nutrition, and Therapeutics Committee on 01/29/2004 and available through the Pharmacy Policy and Procedure Section on The Source.Do not run this test if systemic hydrocortisone, methylprednisolone, prednisolone or prednisone has been administered within the past 24 hours. Draw baseline cortisol level just prior to cosyntropin administration. Administer cosyntropin 0.25 mg diluted in 2-5 mL of normal saline slow IV Push over a period of 2 minutes. Draw serum cortisol level 30 minutes after cosyntropin administration. Draw serum cortisollevel 60 minutes after cosyntropin administration.[id number] 13:34:00 Test Item Value Reference Range Comments FIBRINOGEN LEVEL ([employer] TechnologyAKER) (test szhi=243) 192 mg/dl 225-434 [id number] 13:09:00 Test Item Value Reference Range Comments PARTIAL THROMBOPLASTIN TIME ([employer] Internet TechnologyAKER) (test 52.3 seconds 22.5-36.0 oipj=768) PROTHROMBIN TIME/[id number] 13:03:00 Test Item Value Reference Range Comments PROTIME (BEAKER) (test ofnl=174) 19.8 seconds 11.9-14.2 INR (BEAKER) (test jlhj=638) 1.8 <=5.9 Effective 07/17/2018: PT Reference Range ChangeNew: 11.9-14.2 Previous: 11.7- 14.7RECOMMENDED COUMADIN/WARFARIN INR THERAPY RANGESSTANDARD DOSE: 2.0-3.0 Includes: PROPHYLAXIS for venous thrombosis, systemic embolization; TREATMENT for venous thrombosis and/or pulmonary embolus.HIGH RISK: Target INR is2.5-3.5 for patients wiht mechanical heart valves.POCT-GLUCOSE [id number] 12:54:00 Test Item Value Reference Range Comments POC-GLUCOSE METER ([employer]) 211 mg/dL 70-110 : TESTED AT [facility] [address] (test riyt=5056) [facility], [place], [address]: Motorboat Mechanic Inboard/Outboard/Early Head Start Teacher [id number] for NINOSKA GUZMAN CORTISOL,30 [id number] 12:49:00 Test Item Value Reference Range Comments CORTISOL BASELINE NETWORKED (BEAKER) (test 19.5 mcg/dL wvgb=4415) CORTISOL, 30 MINUTE (BEAKER) (test cdru=2054) 27.8 ug/dL ACTH STIMULATION TEST INTERPRETATION GUIDELINES(Synonyms: Cortrosyn Test, Cosyntropin or Corticotropin Stimulation Test)Adenocorticotropic hormone (ACTH) is a tropic hormone, made in the pituitary gland, which travels trhough the bloodstream and stimulates the cortex of the adrenal glands to release cortisol. Cortisol is a primary hormone, which aids the body's metabolism of fats, carbohydrates, and protein as well as sodium and potassium regulation.ACTH Stimulation Test: Exogenous administrationof biologically active ACTH stimulates the secretion of cortisol from the adrenal gland. This test is used to evaluate adrenal function by measuring cortisol levels at baseline and at 30 and 60 minutesafter the administration of 250 micrograms of cosyntropin (Cortrosyn). Patients who have received exogenous corticosteroids immediately prior to performing the ACTH Stimulation Test will often have elevated baseline cortisol levels, which may lead to erroneous interpretation of test results. The notable exception is with dexamethasone.Normal Response: An increase in cortisol after stimulation by ACTHis normal. Post-stimulation cortisol concentration should be greater than 20 mcg/dL or the rate of rise from baseline cortisol should be greater than or equal to 9 mcg/dL.Patients with sepsis or septicshock: According to a study by Eliazar et al (MAGALY 2000,283( 8):1038-45), the ACTH Stimulation Test provides important prognostic information. This study defined 3 groups of patients with sepsis or septic shock : 1. Good Survival: Low basal cortisol (<or=34 mcg/dL) and high ACTH response (>9mcg/dL) 2. Intermediate Survival: Low basal cortisol (< 34 mcg/dL) and low response to ACTH (<or=9 mcg/dL) OR High basal cortisol (>34 mcg/dL) or high ACTH response (>9 mcg/dL) 3.Poor Survival: High basal cortisol (>34 mcg/dL) and low ACTH response (<or=9 mcg/dL) .Treatment of patients with relative adrenal dysfunction may be indicated based on test results and the clinical condition of the patient. Additional information, including treatment recommendations, is available in critically ill patients, approved by the Pharmacy, Nutrition, and Therapeutics Committee on 01/29/2004 and available through the Pharmacy Policy and Procedure Section on The Source.Do not run this test if systemic hydrocortisone, methylprednisolone, prednisolone or prednisone has been administered within the past 24 hours. Draw baseline cortisol level just prior to cosyntropin administration. Administer cosyntropin 0.25 mg diluted in 2-5 mL of normal saline slow IV Push over a period of 2 minutes. Draw serum cortisol level 30 minutes after cosyntropin administration. Draw serum cortisollevel 60 minutes after cosyntropin administration.POCT-GLUCOSE [id number] 12:24:00 Test Item Value Reference Range Comments POC-GLUCOSE METER (BEAKER) 61 mg/dL 70-110 : TESTED AT [address] (test oauo=0550) [facility], [place], [address]: Motorboat Mechanic Inboard/Outboard/Early Head Start Teacher [id number] for THANH ROCHE CORTISOL,[id number] 11:57:00 Test Item Value Reference Range Comments CORTISOL, BASELINE (BEAKER) (test ixgy=2397) 19.5 ug/dL ACTH STIMULATION TEST INTERPRETATION GUIDELINES(Synonyms: Cortrosyn Test, Cosyntropin or Corticotropin Stimulation Test)Adenocorticotropic hormone (ACTH) is a tropic hormone, made in the pituitary gland, which travels trhough the bloodstream and stimulates the cortex of the adrenal glands to release cortisol. Cortisol is a primary hormone, which aids the body's metabolism of fats, carbohydrates, and protein as well as sodium and potassium regulation.ACTH Stimulation Test: Exogenous administrationof biologically active ACTH stimulates the secretion of cortisol from the adrenal gland. This test is used to evaluate adrenal function by measuring cortisol levels at baseline and at 30 and 60 minutesafter the administration of 250 micrograms of cosyntropin (Cortrosyn). Patients who have received exogenous corticosteroids immediately prior to performing the ACTH Stimulation Test will often have elevated baseline cortisol levels, which may lead to erroneous interpretation of test results. The notable exception is with dexamethasone.Normal Response: An increase in cortisol after stimulation by ACTHis normal. Post-stimulation cortisol concentration should be greater than 20 mcg/dL or the rate of rise from baseline cortisol should be greater than or equal to 9 mcg/dL.Patients with sepsis or septicshock: According to a study by Eliazar et al (MAGALY 2000,283( 8):1038-45), the ACTH Stimulation Test provides important prognostic information. This study defined 3 groups of patients with sepsis or septic shock : 1. Good Survival: Low basal cortisol (<or=34 mcg/dL) and high ACTH response (>9mcg/dL) 2. Intermediate Survival: Low basal cortisol (< 34 mcg/dL) and low response to ACTH (<or=9 mcg/dL) OR High basal cortisol (>34 mcg/dL) or high ACTH response (>9 mcg/dL) 3.Poor Survival: High basal cortisol (>34 mcg/dL) and low ACTH response (<or=9 mcg/dL) .Treatment of patients with relative adrenal dysfunction may be indicated based on test results and the clinical condition of the patient. Additional information, including treatment recommendations, is available in critically ill patients, approved by the Pharmacy, Nutrition, and Therapeutics Committee on 01/29/2004 and available through the Pharmacy Policy and Procedure Section on The Source.Do not run this test if systemic hydrocortisone, methylprednisolone, prednisolone or prednisone has been administered within the past 24 hours. Draw baseline cortisol level just prior to cosyntropin administration. Administer cosyntropin 0.25 mg diluted in 2-5 mL of normal saline slow IV Push over a period of 2 minutes. Draw serum cortisol level 30 minutes after cosyntropin administration. Draw serum cortisollevel 60 minutes after cosyntropin administration.[id number] 11:31:00 Test Item Value Reference Range Comments MAGNESIUM (BEAKER) (test 2.1 mg/dL 1.6-2.6 Specimen slightly hemolyzed ypfc=884) [id number] 11:31:00 Test Item Value Reference Range Comments PHOSPHORUS (BEAKER) (test 1.7 mg/dL 2.3-4.7 Specimen slightly hemolyzed deol=691) POCT-GLUCOSE [id number] 11:16:00 Test Item Value Reference Range Comments POC-GLUCOSE METER (BEAKER) 108 mg/dL 70-110 : TESTED AT [address] (test mpnt=0126) [facility], [place], [address]: Motorboat Mechanic Inboard/Outboard/Early Head Start Teacher [id number] for THANH ROCHE POCT-GLUCOSE [id number] 11:11:00 Test Item Value Reference Range Comments POC-GLUCOSE METER (BEAKER) 130 mg/dL 70-110 : TESTED AT [place] [id number] [facility] (test mycn=4108) [facility], [place], [address]: Motorboat Mechanic Inboard/Outboard/Early Head Start Teacher [id number] for SUGU, JUAN ALBERTOENAMOL POCT-GLUCOSE [id number] 11:05:00 Test Item Value Reference Range Comments POC-GLUCOSE METER (BEAKER) 211 mg/dL 70-110 : TESTED AT [address] (test fmwl=1502) [facility], [place], [address]: Motorboat Mechanic Inboard/Outboard/Early Head Start Teacher [id number] for SUGU, SHEENAMOL PERIPHERAL BLOOD SMEAR - PATHOLOGIST [id number] 10:12:00 Test Item Value Reference Range Comments RBC MORPHOLOGY (BEAKER) (test Polychromasia cude=3729) RBC MORPHOLOGY (BEAKER) (test Anisocytosis mnko=16159) PERIPHERAL SMR REVIEW Cell counts confirmed. (BEAKER) (test kveq=0480) [id number] Enedina Bryan M.D. (BEAKER) (test cxqh=7444) (electronic signature) (CELLAVISION MANUAL DIFF)2019-02-06 09:48:00 Test Item Value Reference Range Comments NEUTROPHILS - REL (CELLAVISION)(BEAKER) (test 68 % arxo=1674) LYMPHOCYTES - REL (CELLAVISION)(BEAKER) (test 14 % ohwp=5611) MONOCYTES - REL (CELLAVISION)(BEAKER) (test 1 % rcfb=3782) BANDS - REL (CELLAVISION)(BEAKER) (test 9 % 0-10 zddd=5525) ATYPICAL LYMPHOCYTES - REL (CELLAVISION)(BEAKER) 7 % 0-0 (test cuje=2436) NEUTROPHILS - ABS (CELLAVISION)(BEAKER) (test 9.79 K/ul 1.78-5.38 ndoo=4949) LYMPHOCYTES - ABS (CELLAVISION)(BEAKER) (test 2.02 K/ul 1.32-3.57 rgix=8513) MONOCYTES - ABS (CELLAVISION)(BEAKER) (test 0.14 K/uL 0.30-0.82 znpz=3822) BANDS - ABS (CELLAVISION)(BEAKER) (test 1.30 K/uL 0.00-0.80 lloq=3432) ATYPICAL LYMPHOCYTES - ABS (CELLAVISION)(BEAKER) 1.01 K/uL 0.00-0.00 (test gfjx=2062) TOTAL COUNTED (BEAKER) (test tvbh=5153) 100 MANUAL NRBC PER 100 CELLS (BEAKER) (test 2 /100 WBC 0-0 gcdi=3192) WBC MORPHOLOGY (BEAKER) (test cdve=847) Normal LARGE PLT(BEAKER) (test lnhb=4055) Present POLYCHROMATOPHILLIC RBCS(BEAKER) (test mdap=411) 1+ few ANISOCYTOSIS (BEAKER) (test fjrb=069) 1+ few MACROCYTES (BEAKER) (test rahg=782) 1+ few POIKILOCYTES (BEAKER) (test gagw=844) 1+ few TARGET CELLS (BEAKER) (test nssw=341) 1+ few SCHISTOCYTES (BEAKER) (test bdtk=347) 1+ few ELLIPTOCYTES (BEAKER) (test cqun=350) 1+ few OVALOCYTES (BEAKER) (test tqck=143) 1+ few TEAR DROP CELLS (BEAKER) (test agjs=851) 1+ few WALT CELLS (BEAKER) (test dppe=512) 1+ few ARTIFACT (CELLAVISION)(BEAKER) (test indw=0520) Present PLATELET CONCENTRATION (CELLAVISION)(BEAKER) Decreased (test ubuz=6941) Received comment: User comments: Slide comments: WBC: [facility]O [id number] 09:47:00 Test Item Value Reference Range Comments WHITE BLOOD CELL COUNT (BEAKER) (test bgcs=941) 14.4 K/ L 3.5-10.5 RED BLOOD CELL COUNT (BEAKER) (test xjet=579) 3.12 M/ L 4.63-6.08 HEMOGLOBIN (BEAKER) (test gzdq=022) 9.2 GM/DL 13.7-17.5 HEMATOCRIT (BEAKER) (test rvxz=854) 26.9 % 40.1-51.0 MEAN CORPUSCULAR VOLUME (BEAKER) (test byzu=876) 86.2 fL 79.0-92.2 MEAN CORPUSCULAR HEMOGLOBIN (BEAKER) (test 29.5 pg 25.7-32.2 abbd=562) MEAN CORPUSCULAR HEMOGLOBIN CONC (BEAKER) (test 34.2 GM/DL 32.3-36.5 coii=406) RED CELL DISTRIBUTION WIDTH (BEAKER) (test 18.1 % 11.6-14.4 tizw=055) PLATELET COUNT (BEAKER) (test poid=580) 136 K/CU MM 150-450 MEAN PLATELET VOLUME (BEAKER) (test rctk=994) 12.0 fL 9.4-12.4 NUCLEATED RED BLOOD CELLS (BEAKER) (test 0 /100 WBC 0-0 ltch=254) BASIC METABOLIC [id number] 09:34:00 Test Item Value Reference Range Comments SODIUM (BEAKER) (test 137 meq/L 136-145 qtvf=423) POTASSIUM (BEAKER) (test 3.6 meq/L 3.5-5.1 Specimen slightly eqno=995) hemolyzed CHLORIDE (BEAKER) (test 104 meq/L 98-107 xenj=842) CO2 (BEAKER) (test 28 meq/L 22-29 urva=668) BLOOD UREA NITROGEN 81 mg/dL 7-21 (BEAKER) (test elph=147) CREATININE (BEAKER) (test 2.10 mg/dL 0.57-1.25 Specimen slightly jgft=634) hemolyzed GLUCOSE RANDOM (BEAKER) 85 mg/dL 70-105 (test qkkx=144) CALCIUM (BEAKER) (test 9.1 mg/dL 8.4-10.2 fmzr=375) EGFR (BEAKER) (test 30 mL/min/1.73 sq m ESTIMATED GFR IS NOT uayu=3691) ACCURATE CREATININE CLEARANCE IN PREDICTING GLOMERULAR FILTRATION RATE. ESTIMATED GFR IS NOT APPLICABLE FOR DIALYSIS PATIENTS. CBC W/PLT COUNT & AUTO [id number] 07:19:00 Test Item Value Reference Range Comments WHITE BLOOD CELL COUNT (BEAKER) (test njxq=445) 12.9 K/ L 3.5-10.5 RED BLOOD CELL COUNT (BEAKER) (test fbpr=057) 2.91 M/ L 4.63-6.08 HEMOGLOBIN (BEAKER) (test agyf=088) 8.4 GM/DL 13.7-17.5 HEMATOCRIT (BEAKER) (test phil=132) 25.7 % 40.1-51.0 MEAN CORPUSCULAR VOLUME (BEAKER) (test hbrl=875) 88.3 fL 79.0-92.2 MEAN CORPUSCULAR HEMOGLOBIN (BEAKER) (test 28.9 pg 25.7-32.2 yvhe=076) MEAN CORPUSCULAR HEMOGLOBIN CONC (BEAKER) (test 32.7 GM/DL 32.3-36.5 syyp=291) RED CELL DISTRIBUTION WIDTH (BEAKER) (test 17.8 % 11.6-14.4 ngle=281) PLATELET COUNT (BEAKER) (test vnor=323) 127 K/CU MM 150-450 MEAN PLATELET VOLUME (BEAKER) (test guja=039) 11.7 fL 9.4-12.4 NUCLEATED RED BLOOD CELLS (BEAKER) (test 0 /100 WBC 0-0 jzbh=468) (CELLAVISION MANUAL DIFF)2019-02-06 07:19:00 Test Item Value Reference Range Comments NEUTROPHILS - REL (CELLAVISION)(BEAKER) (test 61 % bgci=3034) LYMPHOCYTES - REL (CELLAVISION)(BEAKER) (test 20 % vcyb=3574) MONOCYTES - REL (CELLAVISION)(BEAKER) (test 2 % ygqu=2946) BASOPHILS - REL (CELLAVISION)(BEAKER) (test 1 % vash=8634) METAMYELOCYTES - REL (CELLAVISION)(BEAKER) (test 2 % 0-0 amly=5296) MYELOCYTES - REL (CELLAVISION)(BEAKER) (test 1 % 0-0 efye=4327) BANDS - REL (CELLAVISION)(BEAKER) (test 9 % 0-10 pich=3626) ATYPICAL LYMPHOCYTES - REL (CELLAVISION)(BEAKER) 3 % 0-0 (test ccwd=6392) NEUTROPHILS - ABS (CELLAVISION)(BEAKER) (test 7.87 K/ul 1.78-5.38 yovs=7882) LYMPHOCYTES - ABS (CELLAVISION)(BEAKER) (test 2.58 K/ul 1.32-3.57 diir=8236) MONOCYTES - ABS (CELLAVISION)(BEAKER) (test 0.26 K/uL 0.30-0.82 cmcm=5274) BASOPHILS - ABS (CELLAVISION)(BEAKER) (test 0.13 K/uL 0.01-0.08 mppl=4538) METAMYELOCYTES - ABS (CELLAVISION)(BEAKER) (test 0.26 K/uL 0.00-0.00 hhyj=4508) MYELOCYTES-ABS (CELLAVISION)(BEAKER) (test 0.13 K/uL 0.00-0.00 eler=8735) BANDS - ABS (CELLAVISION)(BEAKER) (test 1.16 K/uL 0.00-0.80 hneh=7309) ATYPICAL LYMPHOCYTES - ABS (CELLAVISION)(BEAKER) 0.39 K/uL 0.00-0.00 (test auoi=8262) TOTAL COUNTED (BEAKER) (test ltct=2534) 100 WBC MORPHOLOGY (BEAKER) (test tegs=091) Normal GIANT PLATELETS (BEAKER) (test gdwv=624) Present LARGE PLT(BEAKER) (test xmkb=2340) Present POLYCHROMATOPHILLIC RBCS(BEAKER) (test gxus=834) 1+ few ANISOCYTOSIS (BEAKER) (test aiem=913) 1+ few MACROCYTES (BEAKER) (test xyha=366) 1+ few POIKILOCYTES (BEAKER) (test jreg=606) 2+ moderate ELLIPTOCYTES (BEAKER) (test konw=603) 2+ moderate WALT CELLS (BEAKER) (test emzw=092) 2+ moderate ARTIFACT (CELLAVISION)(BEAKER) (test mrya=4435) Present PLATELET CONCENTRATION (CELLAVISION)(BEAKER) Decreased (test njob=6482) Received comment: User comments: Slide comments:LACTIC ACID, [id number] 05 :53:00 Test Item Value Reference Range Comments LACTATE BLOOD VENOUS (2) (BEAKER) (test 2.4 mmol/L 0.5-2.2 ziuo=8367) BASIC METABOLIC [id number] 05:21:00 Test Item Value Reference Range Comments SODIUM (BEAKER) (test 126 meq/L 136-145 yzjd=793) POTASSIUM (BEAKER) (test 3.2 meq/L 3.5-5.1 Specimen slightly viuv=362) hemolyzed CHLORIDE (BEAKER) (test 101 meq/L 98-107 kqtz=489) CO2 (BEAKER) (test 20 meq/L 22-29 fysi=163) BLOOD UREA NITROGEN 64 mg/dL 7-21 (BEAKER) (test tyxa=124) CREATININE (BEAKER) (test 1.74 mg/dL 0.57-1.25 Specimen slightly gedq=404) hemolyzed GLUCOSE RANDOM (BEAKER) 455 mg/dL 70-105 (test bvqi=938) CALCIUM (BEAKER) (test 7.0 mg/dL 8.4-10.2 lziq=763) EGFR (BEAKER) (test 38 mL/min/1.73 sq m ESTIMATED GFR IS NOT omee=6434) ACCURATE CREATININE CLEARANCE IN PREDICTING GLOMERULAR FILTRATION RATE. ESTIMATED GFR IS NOT APPLICABLE FOR DIALYSIS PATIENTS. COMPREHENSIVE METABOLIC [id number] 05:20:00 Test Item Value Reference Range Comments TOTAL PROTEIN (BEAKER) 4.1 gm/dL 6.0-8.3 Specimen slightly (test rfpl=404) hemolyzed ALBUMIN (BEAKER) (test 2.4 g/dL 3.5-5.0 Specimen slightly scuy=5258) hemolyzed ALKALINE PHOSPHATASE 84 U/L 40-150 (BEAKER) (test uasz=396) BILIRUBIN TOTAL (BEAKER) 1.9 mg/dL 0.2-1.2 Specimen slightly (test qatl=099) hemolyzed SODIUM (BEAKER) (test 126 meq/L 136-145 jomr=462) POTASSIUM (BEAKER) (test 3.2 meq/L 3.5-5.1 Specimen slightly lcyc=233) hemolyzed CHLORIDE (BEAKER) (test 101 meq/L 98-107 ttst=536) CO2 (BEAKER) (test 20 meq/L 22-29 jqmz=283) BLOOD UREA NITROGEN 64 mg/dL 7-21 (BEAKER) (test roll=982) CREATININE (BEAKER) (test 1.74 mg/dL 0.57-1.25 Specimen slightly ebmt=702) hemolyzed GLUCOSE RANDOM (BEAKER) 455 mg/dL 70-105 (test uzpb=897) CALCIUM (BEAKER) (test 7.0 mg/dL 8.4-10.2 movy=789) AST (SGOT) (BEAKER) (test 15 U/L 5-34 Specimen slightly nfph=377) hemolyzed ALT (SGPT) (BEAKER) (test 10 U/L 6-55 Specimen slightly afwk=713) hemolyzed EGFR (BEAKER) (test 38 mL/min/1.73 sq m ESTIMATED GFR IS NOT fmgj=6437) ACCURATE CREATININE CLEARANCE IN PREDICTING GLOMERULAR FILTRATION RATE. ESTIMATED GFR IS NOT APPLICABLE FOR DIALYSIS PATIENTS. [id number] 05:17:00 Test Item Value Reference Range Comments MAGNESIUM (BEAKER) (test 1.4 mg/dL 1.6-2.6 Specimen slightly hemolyzed vesp=067) [id number] 05:17:00 Test Item Value Reference Range Comments PHOSPHORUS (BEAKER) (test 1.6 mg/dL 2.3-4.7 Specimen slightly hemolyzed wney=309) VANCOMYCIN LEVEL, [id number] 05:16:00 Test Item Value Reference Range Comments VANCOMYCIN RANDOM (BEAKER) (test gxhu=489) 4.3 ug/mL Reference Range: No NormalsCALCIUM, [id number] 05:10:00 Test Item Value Reference Range Comments CALCIUM IONIZED (BEAKER) (test keor=679) 1.17 mmol/L 1.12-1.27 PH, BLOOD (BEAKER) (test micv=4954) 7.41 RAD, ABDOMEN/KUB, 1 VIEW [id number] 00:03:00Reason for exam:->Feeding tube placementFINAL REPORT Abdomen one view Comparison: Abdominal radiograph 02/05/2019, 10:08 AM.. Reason for exam: Feeding tube placement Findings: Supine view of the abdomen demonstrates afeeding tube with tip in the stomach. There is a biliary stent in place. There are surgical clips inboth upper quadrants. There are no dilated bowel loops. The visualized lung bases are clear. Signed:Carmen Cuenca [facility]ITAL[facility]ort Verified Date/Time: 02/06/2019 00:03:47 12: 03 AMCBC W/PLT COUNT & AUTO [id number] 21:41:00 Test Item Value Reference Range Comments WHITE BLOOD CELL COUNT (BEAKER) (test ilew=145) 13.8 K/ L 3.5-10.5 RED BLOOD CELL COUNT (BEAKER) (test zshb=055) 3.42 M/ L 4.63-6.08 HEMOGLOBIN (BEAKER) (test elkb=278) 10.2 GM/DL 13.7-17.5 HEMATOCRIT (BEAKER) (test kboe=292) 30.4 % 40.1-51.0 MEAN CORPUSCULAR VOLUME (BEAKER) (test upyu=738) 88.9 fL 79.0-92.2 MEAN CORPUSCULAR HEMOGLOBIN (BEAKER) (test 29.8 pg 25.7-32.2 mlzx=046) MEAN CORPUSCULAR HEMOGLOBIN CONC (BEAKER) (test 33.6 GM/DL 32.3-36.5 gdbh=485) RED CELL DISTRIBUTION WIDTH (BEAKER) (test 17.3 % 11.6-14.4 jogn=754) PLATELET COUNT (BEAKER) (test cvmy=254) 142 K/CU MM 150-450 MEAN PLATELET VOLUME (BEAKER) (test cstl=146) 11.1 fL 9.4-12.4 NUCLEATED RED BLOOD CELLS (BEAKER) (test 0 /100 WBC 0-0 pvhw=685) COMPREHENSIVE METABOLIC [id number] 18:38:00 Test Item Value Reference Range Comments TOTAL PROTEIN (BEAKER) 5.2 gm/dL 6.0-8.3 (test ceyb=480) ALBUMIN (BEAKER) (test 3.3 g/dL 3.5-5.0 phjj=1188) ALKALINE PHOSPHATASE 103 U/L 40-150 (BEAKER) (test frqr=829) BILIRUBIN TOTAL (BEAKER) 1.7 mg/dL 0.2-1.2 (test yuxf=824) SODIUM (BEAKER) (test 135 meq/L 136-145 bsnf=777) POTASSIUM (BEAKER) (test 4.1 meq/L 3.5-5.1 tyxw=888) CHLORIDE (BEAKER) (test 102 meq/L 98-107 mtis=292) CO2 (BEAKER) (test 22 meq/L 22-29 rexe=038) BLOOD UREA NITROGEN 76 mg/dL 7-21 (BEAKER) (test xsgy=610) CREATININE (BEAKER) (test 2.24 mg/dL 0.57-1.25 jxrh=354) GLUCOSE RANDOM (BEAKER) 240 mg/dL 70-105 (test erhu=058) CALCIUM (BEAKER) (test 8.9 mg/dL 8.4-10.2 rrqh=824) AST (SGOT) (BEAKER) (test 15 U/L 5-34 aqbu=003) ALT (SGPT) (BEAKER) (test 14 U/L 6-55 qiea=205) EGFR (BEAKER) (test 28 mL/min/1.73 sq m ESTIMATED GFR IS NOT pkfu=5795) ACCURATE CREATININE CLEARANCE IN PREDICTING GLOMERULAR FILTRATION RATE. ESTIMATED GFR IS NOT APPLICABLE FOR DIALYSIS PATIENTS. LACTATE DEHYDROGENASE (LDH)2019-02-05 18:27:00 Test Item Value Reference Range Comments LACTATE DEHYDROGENASE (BEAKER) (test xwzh=112) 208 U/L 125-220 [id number] 18:24:00 Test Item Value Reference Range Comments HAPTOGLOBIN (BEAKER) (test rljb=698) 21 mg/dL 14-258 [id number] 18:18:00 Test Item Value Reference Range Comments FIBRINOGEN LEVEL (BEAKER) (test ludv=768) 205 mg/dl 225-434 PROTHROMBIN [id number] 18:17:00 Test Item Value Reference Range Comments PROTIME (BEAKER) (test ezsm=402) 20.7 seconds 11.9-14.2 INR (BEAKER) (test aoal=745) 1.9 <=5.9 Effective 07/17/2018: PT Reference Range ChangeNew: 11.9-14.2 Previous: 11.7- 14.7RECOMMENDED COUMADIN/WARFARIN INR THERAPY RANGESSTANDARD DOSE: 2.0-3.0 Includes: PROPHYLAXIS for venous thrombosis, systemic embolization; TREATMENT for venous thrombosis and/or pulmonary embolus.HIGH RISK: Target INR is2.5-3.5 for patients wiht mechanical heart valves.POCT-GLUCOSE [id number] 17:34:00 Test Item Value Reference Range Comments POC-GLUCOSE METER (BEAKER) 188 mg/dL 70-110 : TESTED AT [facility] [address] (test sgdk=6389) [facility], [place], [id number]: Motorboat Mechanic Inboard/Outboard/Early Head Start Teacher [id number] for THANH ROCHE U/S, [id number] 17:05:00Labs to be ordered:->Body Fluid Culture ( w/Gram Stain, C\T\S)Reason for exam:->ascites, rule out SBPShould this be performed at the bedside?->YesFINAL REPORT Ultrasound guided paracentesis Clinical History: Ascites. Sedation: None. Associate Director Financial Aid: Jenniffer Duran PA-C Supervising Physician: Dejon Adler MD Knifer Up: None. Estimated Blood Loss: < 1 mL. Specimen: 2400 mL of clear yellow fluid, samples sent [...] was evaluated with color Doppler to exclude presenceof blood vessels traversing the area, the skin was prepped and draped in the usual sterile manner. After local anesthesia was achieved with lidocaine, a 5 [place] one-step catheter was advanced into the peritoneal cavity under ultrasound guidance. After completion of drainage, the catheter was removed. There was no evidence of complication. This procedure was performed by ALMITA Harris under direct supervision of Dejon Adler M.D. Impression:Successful ultrasound guided paracentesis. Signed:Dejon Adler MDReport Verified Date/ Time: 02/05/2019 17:05:34 Reading Location: [address] Ultrasound Reading Room [id number] 17:03:00 Test Item Value Reference Range Comments CORTISOL, TOTAL (BEAKER) (test ypmc=0700) 48.8 ug/dL 3.7-19.4 BODY FLUID CELL COUNT WITH [id number] 17:02:00 Test Item Value Reference Range Comments APPEARANCE FLUID (BEAKER) (test jwhl=550) Hazy Clear COLOR FLUID (BEAKER) (test neoo=826) Yellow Colorless, Straw RBC FLUID (BEAKER) (test srfi=156) 258 /cu mm <=1 ADJUSTED WBC FLUID (BEAKER) (test fmra=6137) 14 /cu mm <=5 LINING CELLS (BEAKER) (test aask=3349) 1 /cu mm <=1 NEUTROPHILS FLUID (BEAKER) (test swat=1888) 30 % LYMPHS FLUID (BEAKER) (test iofw=157) 45 % MONO/MACROPHAGE FLUID (BEAKER) (test omro=604) 25 % EOSINOPHILS FLUID (BEAKER) (test avar=587) 0 % BASO FLUID (BEAKER) (test xaqb=934) 0 % CONTAINER BODY FLUID (BEAKER) (test geib=5252) EDTA Tube CBC W/PLT COUNT & AUTO [id number] 16:51:00 Test Item Value Reference Range Comments WHITE BLOOD CELL COUNT (BEAKER) (test dptc=728) 10.6 K/ L 3.5-10.5 RED BLOOD CELL COUNT (BEAKER) (test cunv=861) 1.75 M/ L 4.63-6.08 HEMOGLOBIN (BEAKER) (test raat=213) 5.2 GM/DL 13.7-17.5 HEMATOCRIT (BEAKER) (test hubj=124) 16.8 % 40.1-51.0 MEAN CORPUSCULAR VOLUME (BEAKER) (test byyd=817) 96.0 fL 79.0-92.2 MEAN CORPUSCULAR HEMOGLOBIN (BEAKER) (test 29.7 pg 25.7-32.2 rkll=143) MEAN CORPUSCULAR HEMOGLOBIN CONC (BEAKER) (test 31.0 GM/DL 32.3-36.5 fqof=994) RED CELL DISTRIBUTION WIDTH (BEAKER) (test 20.3 % 11.6-14.4 vrsh=354) PLATELET COUNT (BEAKER) (test irlj=634) 112 K/CU MM 150-450 MEAN PLATELET VOLUME (BEAKER) (test pymq=924) 12.2 fL 9.4-12.4 NUCLEATED RED BLOOD CELLS (BEAKER) (test 0 /100 WBC 0-0 kgnf=977) (CELLAVISION MANUAL DIFF)2019-02-05 16:51:00 Test Item Value Reference Range Comments NEUTROPHILS - REL (CELLAVISION)(BEAKER) (test 51 % fhvc=2714) LYMPHOCYTES - REL (CELLAVISION)(BEAKER) (test 31 % xavr=3329) MONOCYTES - REL (CELLAVISION)(BEAKER) (test 4 % nqmk=5333) METAMYELOCYTES - REL (CELLAVISION)(BEAKER) (test 2 % 0-0 zmje=3446) MYELOCYTES - REL (CELLAVISION)(BEAKER) (test 1 % 0-0 comz=4944) BANDS - REL (CELLAVISION)(BEAKER) (test 11 % 0-10 fxob=6438) NEUTROPHILS - ABS (CELLAVISION)(BEAKER) (test 5.41 K/ul 1.78-5.38 yoqh=8245) LYMPHOCYTES - ABS (CELLAVISION)(BEAKER) (test 3.29 K/ul 1.32-3.57 iwdi=8640) MONOCYTES - ABS (CELLAVISION)(BEAKER) (test 0.42 K/uL 0.30-0.82 hbtf=1523) METAMYELOCYTES - ABS (CELLAVISION)(BEAKER) (test 0.21 K/uL 0.00-0.00 lrsb=3691) MYELOCYTES-ABS (CELLAVISION)(BEAKER) (test 0.11 K/uL 0.00-0.00 usly=7056) BANDS - ABS (CELLAVISION)(BEAKER) (test 1.17 K/uL 0.00-0.80 hssn=2309) TOTAL COUNTED (BEAKER) (test jaua=7824) 100 MANUAL NRBC PER 100 CELLS (BEAKER) (test 1 /100 WBC 0-0 hhlx=4802) WBC MORPHOLOGY (BEAKER) (test amjy=401) Normal GIANT PLATELETS (BEAKER) (test trkp=630) Present ANISOCYTOSIS (BEAKER) (test ssqr=042) 2+ moderate MACROCYTES (BEAKER) (test aykv=748) 2+ moderate POIKILOCYTES (BEAKER) (test owiy=917) 3+ many ELLIPTOCYTES (BEAKER) (test kdxn=310) 2+ moderate OVALOCYTES (BEAKER) (test wpiu=310) 1+ few WALT CELLS (BEAKER) (test eomi=317) 1+ few ARTIFACT (CELLAVISION)(BEAKER) (test lvrh=6211) Present PLATELET CONCENTRATION (CELLAVISION)(BEAKER) Decreased (test stct=8763) Received comment: User comments: Slide comments:[id number] 16:35:00 Test Item Value Reference Range Comments FIBRINOGEN LEVEL (BEAKER) (test rpug=995) 154 mg/dl 225-434 URINALYSIS W/ REFLEX URINE [id number] 13:54:00 Test Item Value Reference Range Comments COLOR (BEAKER) (test riqs=509) Yellow CLARITY (BEAKER) (test ecjn=308) Hazy SPECIFIC GRAVITY UA (BEAKER) (test ahhv=246) 1.030 1.001-1.035 PH UA (BEAKER) (test hgnc=435) 5.0 5.0-8.0 PROTEIN UA (BEAKER) (test ufcp=734) 10 mg/dL Negative GLUCOSE UA (BEAKER) (test oikv=562) Negative Negative KETONES UA (BEAKER) (test wslp=829) Negative Negative BILIRUBIN UA (BEAKER) (test jgbd=488) Negative Negative BLOOD UA (BEAKER) (test ratp=991) Large Negative NITRITE UA (BEAKER) (test yhip=579) Negative Negative LEUKOCYTE ESTERASE UA (BEAKER) (test otmq=325) Negative Negative UROBILINOGEN UA (BEAKER) (test ptex=414) 0.2 mg/dL 0.2-1.0 RBC UA (BEAKER) (test cien=471) 10 /HPF WBC UA (BEAKER) (test obrr=664) 3 /HPF BACTERIA (BEAKER) (test rruw=559) Few MUCUS (BEAKER) (test jlyv=7229) Few SQUAMOUS EPITHELIAL (BEAKER) (test behg=690) 1 /HPF HYALINE CASTS (BEAKER) (test jwpv=802) 1 /LPF SOURCE(BEAKER) (test hhri=6576) LACTIC ACID, [id number] 13:27:00 Test Item Value Reference Range Comments LACTATE BLOOD VENOUS (2) (BEAKER) (test 6.3 mmol/L 0.5-2.2 dowi=9457) HEMOGLOBIN AND [id number] 12:51:00 Test Item Value Reference Range Comments HEMOGLOBIN (BEAKER) (test mtyx=800) 7.7 GM/DL 13.7-17.5 HEMATOCRIT (BEAKER) (test afuk=516) 23.9 % 40.1-51.0 POCT-GLUCOSE [id number] 12:08:00 Test Item Value Reference Range Comments POC-GLUCOSE METER (BEAKER) 162 mg/dL 70-110 : TESTED AT [facility] [address] (test dofu=1960) [facility], [place], [address]: Motorboat Mechanic Inboard/Outboard/Early Head Start Teacher [id number] for THANH ROCHE (CELLAVISION MANUAL DIFF)2019-02-05 11:21:00 Test Item Value Reference Range Comments NEUTROPHILS - REL (CELLAVISION)(BEAKER) (test 61 % dwhe=9066) LYMPHOCYTES - REL (CELLAVISION)(BEAKER) (test 22 % ruck=7158) MONOCYTES - REL (CELLAVISION)(BEAKER) (test 3 % zkpe=3026) METAMYELOCYTES - REL (CELLAVISION)(BEAKER) (test 2 % 0-0 qtgz=0639) BANDS - REL (CELLAVISION)(BEAKER) (test 11 % 0-10 vrov=1258) ATYPICAL LYMPHOCYTES - REL (CELLAVISION)(BEAKER) 1 % 0-0 (test ayfg=1239) NEUTROPHILS - ABS (CELLAVISION)(BEAKER) (test 6.16 K/ul 1.78-5.38 kzaz=5105) LYMPHOCYTES - ABS (CELLAVISION)(BEAKER) (test 2.22 K/ul 1.32-3.57 rjzi=9532) MONOCYTES - ABS (CELLAVISION)(BEAKER) (test 0.30 K/uL 0.30-0.82 gzea=2041) METAMYELOCYTES - ABS (CELLAVISION)(BEAKER) (test 0.20 K/uL 0.00-0.00 yxnn=0260) BANDS - ABS (CELLAVISION)(BEAKER) (test 1.11 K/uL 0.00-0.80 haxj=9142) ATYPICAL LYMPHOCYTES - ABS (CELLAVISION)(BEAKER) 0.10 K/uL 0.00-0.00 (test gydw=8143) TOTAL COUNTED (BEAKER) (test ghge=4838) 100 SMUDGE CELLS (BEAKER) (test xwrm=2391) Present GIANT PLATELETS (BEAKER) (test nkan=438) Present ANISOCYTOSIS (BEAKER) (test jlou=283) 2+ moderate POIKILOCYTES (BEAKER) (test fmrg=557) 2+ moderate WALT CELLS (BEAKER) (test cjph=207) 2+ moderate ARTIFACT (CELLAVISION)(BEAKER) (test fmvk=6973) Present PLATELET CONCENTRATION (CELLAVISION)(BEAKER) Decreased (test ghfy=6642) Received comment: User comments: Slide comments:LACTIC ACID, [id number] 10 :59:00 Test Item Value Reference Range Comments LACTATE BLOOD VENOUS (2) 5.5 mmol/L 0.5-2.2 Specimen slightly hemolyzed (BEAKER) (test ivqy=1968) CBC W/PLT COUNT & AUTO [id number] 10:39:00 Test Item Value Reference Range Comments WHITE BLOOD CELL COUNT (BEAKER) (test lefq=009) 10.1 K/ L 3.5-10.5 RED BLOOD CELL COUNT (BEAKER) (test ewiy=693) 2.57 M/ L 4.63-6.08 HEMOGLOBIN (BEAKER) (test epnu=793) 7.5 GM/DL 13.7-17.5 HEMATOCRIT (BEAKER) (test vsks=127) 23.5 % 40.1-51.0 MEAN CORPUSCULAR VOLUME (BEAKER) (test sdsh=706) 91.4 fL 79.0-92.2 MEAN CORPUSCULAR HEMOGLOBIN (BEAKER) (test 29.2 pg 25.7-32.2 hclh=051) MEAN CORPUSCULAR HEMOGLOBIN CONC (BEAKER) (test 31.9 GM/DL 32.3-36.5 ywwm=030) RED CELL DISTRIBUTION WIDTH (BEAKER) (test 19.9 % 11.6-14.4 rjiy=147) PLATELET COUNT (BEAKER) (test gmdd=628) 146 K/CU MM 150-450 MEAN PLATELET VOLUME (BEAKER) (test gffh=808) 12.3 fL 9.4-12.4 NUCLEATED RED BLOOD CELLS (BEAKER) (test 0 /100 WBC 0-0 izls=823) RAD, ABDOMEN/KUB, 1 VIEW [id number] 10:30:00Reason for exam:->corpak placement.FINAL REPORT RAD, ABDOMEN/KUB, 1 VIEW AP INDICATION: corpak placement. COMPARISON: None TECHNIQUE: Limited portable radiograph of the lower chest and upper abdomen was acquired for purposes of evaluating feeding tube placement FINDINGS:Feeding tube tip overlies the distal stomach. Stomach is air-filled. Stool and air present throughout the colon. Multiple clips Signed: Familia Fuchs MDReport Verified Date/Time: 2018 10:30:31 [facility]iology[facility] OXYGEN SATURATION, [id number] 10:28:00 Test Item Value Reference Range Comments O2 SATURATION (MEASURED) (BEAKER) (test rsyf=6877) 47.6 % If patient has internal jugular ( IJ) or subclavian central line or PICC line. Draw from distal port. Label as central venous oxygen.BLOOD GAS, [id number] 10:28:00 Test Item Value Reference Range Comments PH VENOUS (BEAKER) (test zgxl=350) 7.38 7.32-7.42 PCO2 VENOUS (BEAKER) (test xdgm=260) 45 mmHg 41-51 PO2 VENOUS (BEAKER) (test hmpb=698) 32 mmHg 25-40 O2 SATURATION VENOUS (BEAKER) (test qggi=904) 58.6 % 40.0-70.0 HCO3 VENOUS (BEAKER) (test vvvt=432) 26 mmol/L 21-29 BASE EXCESS VENOUS (BEAKER) (test nwgs=541) 0.2 mmol/L -2.0-3.0 PATIENT TEMPERATURE (BEAKER) (test llcs=4348) 37.0 C FIO2 (BEAKER) (test pcxf=4478) 21.0 % STREP PNEUMONIAE [id number] 10:04:00 Test Item Value Reference Range Comments STREP PNEUMONIAE ANTIGEN Presumptive negative for Presumptive negative for (BEAKER) (test pneumococcal pneumonia - pneumococcal pneumonia - temh=7386) see comment see commen Presumptive negative for pneumococcal pneumonia, suggesting no current or recent pneumococcal infection. Infection due to S. pneumoniae cannot be ruled out since the antigen present in the sample may be below the detection limit of the test.LEGIONELLA ANTIGEN, [id number] 10:03:00 Test Item Value Reference Range Comments L. PNEUMOPHILA SEROGP 1 Negative - see Negative for L. UR AG (BEAKER) (test comment pneumophila serogroup 1 nhse=7048) antigen, suggesting no recent or current infection with this serogroup. Legionellosis cannot be ruled out since other serogroups and species may cause disease. CBC W/PLT COUNT & AUTO [id number] 09:40:00 Test Item Value Reference Range Comments WHITE BLOOD CELL COUNT (BEAKER) (test mlvq=880) 14.3 K/ L 3.5-10.5 RED BLOOD CELL COUNT (BEAKER) (test ckxr=447) 2.92 M/ L 4.63-6.08 HEMOGLOBIN (BEAKER) (test uvsh=291) 8.5 GM/DL 13.7-17.5 HEMATOCRIT (BEAKER) (test cvbd=290) 26.9 % 40.1-51.0 MEAN CORPUSCULAR VOLUME (BEAKER) (test zjbv=585) 92.1 fL 79.0-92.2 MEAN CORPUSCULAR HEMOGLOBIN (BEAKER) (test 29.1 pg 25.7-32.2 zrlc=637) MEAN CORPUSCULAR HEMOGLOBIN CONC (BEAKER) (test 31.6 GM/DL 32.3-36.5 qldh=865) RED CELL DISTRIBUTION WIDTH (BEAKER) (test 19.9 % 11.6-14.4 qqgn=449) PLATELET COUNT (BEAKER) (test ecmr=096) 202 K/CU MM 150-450 MEAN PLATELET VOLUME (BEAKER) (test efts=582) 11.9 fL 9.4-12.4 NUCLEATED RED BLOOD CELLS (BEAKER) (test 0 /100 WBC 0-0 zjga=742) (CELLAVISION MANUAL DIFF)2019-02-05 09:40:00 Test Item Value Reference Range Comments NEUTROPHILS - REL (CELLAVISION)(BEAKER) (test 81 % dhgw=4029) LYMPHOCYTES - REL (CELLAVISION)(BEAKER) (test 10 % otfr=5805) MONOCYTES - REL (CELLAVISION)(BEAKER) (test 4 % wial=7008) BASOPHILS - REL (CELLAVISION)(BEAKER) (test 1 % qanw=9164) BANDS - REL (CELLAVISION)(BEAKER) (test 4 % 0-10 xtjv=4229) NEUTROPHILS - ABS (CELLAVISION)(BEAKER) (test 11.58 K/ul 1.78-5.38 uosc=7422) LYMPHOCYTES - ABS (CELLAVISION)(BEAKER) (test 1.43 K/ul 1.32-3.57 satu=2895) MONOCYTES - ABS (CELLAVISION)(BEAKER) (test 0.57 K/uL 0.30-0.82 rfer=2942) BASOPHILS - ABS (CELLAVISION)(BEAKER) (test 0.14 K/uL 0.01-0.08 mglr=2457) BANDS - ABS (CELLAVISION)(BEAKER) (test 0.57 K/uL 0.00-0.80 yleo=4594) TOTAL COUNTED (BEAKER) (test deoh=6755) 100 WBC MORPHOLOGY (BEAKER) (test zyvn=187) Normal PLT MORPHOLOGY (BEAKER) (test kotx=988) Normal POLYCHROMATOPHILLIC RBCS(BEAKER) (test bolk=882) 1+ few ANISOCYTOSIS (BEAKER) (test ircn=778) 2+ moderate MICROCYTES (BEAKER) (test eeht=975) 1+ few MACROCYTES (BEAKER) (test ghvj=659) 2+ moderate POIKILOCYTES (BEAKER) (test eixd=997) 2+ moderate SCHISTOCYTES (BEAKER) (test wphl=086) 2+ moderate ELLIPTOCYTES (BEAKER) (test vezr=761) 1+ few OVALOCYTES (BEAKER) (test cqzs=170) 1+ few ARTIFACT (CELLAVISION)(BEAKER) (test kniq=6181) Present HELMET CELLS (CELLAVISION)(BEAKER) (test 1+ few ecow=8481) PLATELET CONCENTRATION (CELLAVISION)(BEAKER) Adequate (test jucy=0945) Received comment: User comments: Slide comments:RAD, CHEST, 1 VIEW, NON [id number] 09:37:00Reason for exam:->sepsisShould this be performed at the bedside?->YesFINAL REPORT RAD, CHEST, 1 VIEW, NON DEPT INDICATION: sepsis COMPARISON: Prior day's exam FINDINGS: Portable frontal view of the chest. IMPRESSION: Support Lines: Stable. Lungs and pleura: Increase airspace opacities. No pneumothorax.Heart and mediastinum: Stable contours. Stable surgical changes.Additional findings: None. Signed: Familia Fuchs MDReport Verified Date/Time: 02/05/2019 09:37:48 Reading Location: [facility] Radiology Reading Room [id number] 09:28:00 Test Item Value Reference Range Comments PROCALCITONIN (BEAKER) (test zogo=8901) 0.80 ng/mL <0.05 SEPSIS RISK (ng/mL)Low: 0.05-0.50Intermediate: 0.51-2.00High: & gt;=2.01BASIC METABOLIC [id number] 07:50:00 Test Item Value Reference Range Comments SODIUM (BEAKER) (test 140 meq/L 136-145 bumg=158) POTASSIUM (BEAKER) (test 4.0 meq/L 3.5-5.1 mvwl=598) CHLORIDE (BEAKER) (test 104 meq/L 98-107 figu=478) CO2 (BEAKER) (test 25 meq/L 22-29 gwaj=416) BLOOD UREA NITROGEN 73 mg/dL 7-21 (BEAKER) (test xohk=743) CREATININE (BEAKER) (test 2.23 mg/dL 0.57-1.25 vgwo=724) GLUCOSE RANDOM (BEAKER) 167 mg/dL 70-105 (test wdxv=743) CALCIUM (BEAKER) (test 9.6 mg/dL 8.4-10.2 pqgq=575) EGFR (BEAKER) (test 28 mL/min/1.73 sq m ESTIMATED GFR IS NOT tswv=3486) ACCURATE CREATININE CLEARANCE IN PREDICTING GLOMERULAR FILTRATION RATE. ESTIMATED GFR IS NOT APPLICABLE FOR DIALYSIS PATIENTS. [id number] 07:49:00 Test Item Value Reference Range Comments FIBRINOGEN LEVEL (BEAKER) (test iatu=218) 136 mg/dl 225-434 TROPONIN [id number] 07:48:00 Test Item Value Reference Range Comments TROPONIN I (BEAKER) (test pzvv=261) 0.10 ng/mL 0.00-0.03 Troponin I (TnI) levels must be interpreted in the context of the presenting symptoms and the clinical findings. Elevated TnI levels indicate myocardial damage, but are not specific for ischemic heart disease. Elevated TnI levels are seen in patients with other cardiac conditions (including myocarditis and congestive heart failure), and slight TnI elevations occur in patients with other conditions, including sepsis, renal failure, acidosis, acute neurological disease, and persistent tachyarrhythmia.LACTIC ACID, [id number] 07:46:00 Test Item Value Reference Range Comments LACTATE BLOOD VENOUS (2) (BEAKER) (test 5.6 mmol/L 0.5-2.2 poix=3287) [id number] 07:45:00 Test Item Value Reference Range Comments PARTIAL THROMBOPLASTIN TIME (BEAKER) (test 44.4 seconds 22.5-36.0 spgt=212) PROTHROMBIN TIME/[id number] 07:44:00 Test Item Value Reference Range Comments PROTIME (BEAKER) (test nzwn=765) 21.1 seconds 11.9-14.2 INR (BEAKER) (test byfu=274) 1.9 <=5.9 Effective 07/17/2018: PT Reference Range ChangeNew: 11.9-14.2 Previous: 11.7- 14.7RECOMMENDED COUMADIN/WARFARIN INR THERAPY RANGESSTANDARD DOSE: 2.0-3.0 Includes: PROPHYLAXIS for venous thrombosis, systemic embolization; TREATMENT for venous thrombosis and/or pulmonary embolus.HIGH RISK: Target INR is2.5-3.5 for patients wiht mechanical heart valves.HEPATIC FUNCTION [id number] 07:40 :00 Test Item Value Reference Range Comments TOTAL PROTEIN (BEAKER) (test ntai=882) 5.6 gm/dL 6.0-8.3 ALBUMIN (BEAKER) (test zrnp=9368) 3.7 g/dL 3.5-5.0 BILIRUBIN TOTAL (BEAKER) (test cggc=135) 0.9 mg/dL 0.2-1.2 BILIRUBIN DIRECT (BEAKER) (test hfev=991) 0.6 mg/dL 0.1-0.5 ALKALINE PHOSPHATASE (BEAKER) (test yvmg=302) 123 U/L 40-150 AST (SGOT) (BEAKER) (test bnkk=266) 12 U/L 5-34 ALT (SGPT) (BEAKER) (test mtqj=731) 15 U/L 6-55 [id number] 07:40:00 Test Item Value Reference Range Comments MAGNESIUM (BEAKER) (test isaf=163) 1.9 mg/dL 1.6-2.6 [id number] 07:40:00 Test Item Value Reference Range Comments PHOSPHORUS (BEAKER) (test fyyr=637) 2.7 mg/dL 2.3-4.7 [id number] 07:40:00 Test Item Value Reference Range Comments LIPASE (BEAKER) (test ruxl=365) 4 U/L 8-78 HEPATITIS A ANTIBODY, [id number] 07:37:00 Test Item Value Reference Range Comments HEPATITIS A IGG ANTIBODY (BEAKER) (test pmik=4970) Reactive Nonreactive CBC W/PLT COUNT & AUTO [id number] 07:15:00 Test Item Value Reference Range Comments WHITE BLOOD CELL COUNT (BEAKER) (test kkxc=277) 15.5 K/ L 3.5-10.5 RED BLOOD CELL COUNT (BEAKER) (test zqcx=747) 3.46 M/ L 4.63-6.08 HEMOGLOBIN (BEAKER) (test mufr=245) 10.1 GM/DL 13.7-17.5 HEMATOCRIT (BEAKER) (test vwgw=008) 31.9 % 40.1-51.0 MEAN CORPUSCULAR VOLUME (BEAKER) (test aouv=137) 92.2 fL 79.0-92.2 MEAN CORPUSCULAR HEMOGLOBIN (BEAKER) (test 29.2 pg 25.7-32.2 fdun=389) MEAN CORPUSCULAR HEMOGLOBIN CONC (BEAKER) (test 31.7 GM/DL 32.3-36.5 bemj=331) RED CELL DISTRIBUTION WIDTH (BEAKER) (test 20.7 % 11.6-14.4 xsik=782) PLATELET COUNT (BEAKER) (test yaui=164) 243 K/CU MM 150-450 MEAN PLATELET VOLUME (BEAKER) (test qogm=969) 13.0 fL 9.4-12.4 NUCLEATED RED BLOOD CELLS (BEAKER) (test 0 /100 WBC 0-0 ntli=190) NEUTROPHILS RELATIVE PERCENT (BEAKER) (test 84 % igfp=361) LYMPHOCYTES RELATIVE PERCENT (BEAKER) (test 9 % gkov=055) MONOCYTES RELATIVE PERCENT (BEAKER) (test 6 % puft=284) EOSINOPHILS RELATIVE PERCENT (BEAKER) (test 0 % gcln=995) BASOPHILS RELATIVE PERCENT (BEAKER) (test 0 % chdr=687) NEUTROPHILS ABSOLUTE COUNT (BEAKER) (test 13.03 K/ L 1.78-5.38 ucrf=471) LYMPHOCYTES ABSOLUTE COUNT (BEAKER) (test 1.44 K/ L 1.32-3.57 vzna=238) MONOCYTES ABSOLUTE COUNT (BEAKER) (test 0.94 K/ L 0.30-0.82 arhr=388) EOSINOPHILS ABSOLUTE COUNT (BEAKER) (test 0.00 K/ L 0.04-0.54 bakr=610) BASOPHILS ABSOLUTE COUNT (BEAKER) (test 0.04 K/ L 0.01-0.08 njnb=321) IMMATURE GRANULOCYTES-RELATIVE PERCENT (BEAKER) 0 % 0-1 (test euym=7761) HEMOGLOBIN AND [id number] 06:42:00 Test Item Value Reference Range Comments HEMOGLOBIN (BEAKER) (test bhni=366) 8.5 GM/DL 13.7-17.5 HEMATOCRIT (BEAKER) (test cpxg=475) 26.9 % 40.1-51.0 BASIC METABOLIC [id number] 06:30:00 Test Item Value Reference Range Comments SODIUM (BEAKER) (test 139 meq/L 136-145 ichs=911) POTASSIUM (BEAKER) (test 4.5 meq/L 3.5-5.1 qeol=771) CHLORIDE (BEAKER) (test 106 meq/L 98-107 vdth=336) CO2 (BEAKER) (test 22 meq/L 22-29 qnak=433) BLOOD UREA NITROGEN 72 mg/dL 7-21 (BEAKER) (test jrfw=549) CREATININE (BEAKER) (test 2.16 mg/dL 0.57-1.25 lktm=085) GLUCOSE RANDOM (BEAKER) 171 mg/dL 70-105 (test ivmo=637) CALCIUM (BEAKER) (test 9.3 mg/dL 8.4-10.2 ukmg=777) EGFR (BEAKER) (test 29 mL/min/1.73 sq m ESTIMATED GFR IS NOT vtod=4120) ACCURATE CREATININE CLEARANCE IN PREDICTING GLOMERULAR FILTRATION RATE. ESTIMATED GFR IS NOT APPLICABLE FOR DIALYSIS PATIENTS. [id number] 06:19:00 Test Item Value Reference Range Comments PHOSPHORUS (BEAKER) (test mcnc=505) 2.8 mg/dL 2.3-4.7 [id number] 06:19:00 Test Item Value Reference Range Comments MAGNESIUM (BEAKER) (test risb=422) 2.0 mg/dL 1.6-2.6 POCT-BLOOD GASES, [id number] 06:08:00 Test Item Value Reference Range Comments TEMP, CELSIUS-POC (BEAKER) 35.7 (test zihy=1874) FIO2-POC (BEAKER) (test 21 TESTED AT [place] [address] [address] tzwp=6977) [place] [address] PH, VENOUS-POC (BEAKER) 7.299 7.320-7.420 (test ubhp=1300) PCO2, VENOUS-POC (BEAKER) 50.5 mm Hg 41.0-51.0 (test zpcc=4986) PO2, VENOUS-POC (BEAKER) 25.0 mm Hg 25.0-40.0 (test pjkz=0824) SO2, VENOUS-POC (BEAKER) 44.0 % 40.0-70.0 (test sran=0433) HCO3, VENOUS-POC (BEAKER) 25.2 meq/L 21.0-29.0 (test myvs=3106) BASE EXCESS, VENOUS-POC -2.0 meq/L -2.0-3.0 (BEAKER) (test yrjg=0941) [id number] 06:08:00 Test Item Value Reference Range Comments POC-SODIUM (BEAKER) (test 140 meq/L 135-148 TESTED AT [place] [address] [address] vqnt=3173) [place] [address] [id number] 06:08:00 Test Item Value Reference Range Comments POC-POTASSIUM (BEAKER) (test 4.0 meq/L 3.6-5.5 TESTED AT [address] oprz=3265) [facility] [place] [address] [id number] 06:08:00 Test Item Value Reference Range Comments POC-GLUCOSE (BEAKER) (test 154 mg/dL 70-110 TESTED AT [address] hyst=4322) [facility] [place] [address] POCT-CALCIUM [id number] 06:08:00 Test Item Value Reference Range Comments POC-CALCIUM IONIZED (BEAKER) 1.38 mmol/L 1.12-1.27 TESTED AT [address] (test jfbi=8453) [place] [id number] 06:08:00 Test Item Value Reference Range Comments POC-HEMATOCRIT (BEAKER) (test 29 % 40-50 TESTED AT [address] vwow=5771) [place] [address] [id number] 06:08:00 Test Item Value Reference Range Comments POC-HEMOGLOBIN (BEAKER) 9.9 g/dL 13.0-16.8 TESTED AT [address] (test njjs=6805) [place] [address]TESTED AT [place] [id number] POCT-LACTIC ACID, [id number] 06:08:00 Test Item Value Reference Range Comments POC-LACTIC ACID, VENOUS 6.7 mmol/L 0.9-1.7 TESTED AT [address] (BEAKER) (test tjal=4118) [place] [id number] POCT-GLUCOSE [id number] 05:48:00 Test Item Value Reference Range Comments POC-GLUCOSE METER (BEAKER) 152 mg/dL 70-110 : TESTED AT [address] (test fxmu=4304) [facility], [place], [address]: [employer]boat [employer] Inboard/Outboard/Early [employer] Start Teacher [id number] for FELIPE QUEEN HEMOGLOBIN AND [id number] 00:27:00 Test Item Value Reference Range Comments HEMOGLOBIN (BEAKER) (test nlni=654) 10.1 GM/DL 13.7-17.5 HEMATOCRIT (BEAKER) (test judr=336) 30.7 % 40.1-51.0 POCT-GLUCOSE [id number] 21:27:00 Test Item Value Reference Range Comments POC-GLUCOSE METER (BEAKER) 362 mg/dL 70-110 : TESTED AT [place] [id number] [facility] (test ruuv=3035) [facility], [place], [address]: Motorboat Mechanic Inboard/Outboard/Early Head Start Teacher CM=[id number] for TIFF BAH CBC (HEMOGRAM ONLY)2019-02-04 18:30:00 Test Item Value Reference Range Comments WHITE BLOOD CELL COUNT (BEAKER) (test ijom=203) 11.4 K/ L 3.5-10.5 RED BLOOD CELL COUNT (BEAKER) (test rrnp=347) 3.39 M/ L 4.63-6.08 HEMOGLOBIN (BEAKER) (test ddbz=780) 9.6 GM/DL 13.7-17.5 HEMATOCRIT (BEAKER) (test qraz=152) 30.1 % 40.1-51.0 MEAN CORPUSCULAR VOLUME (BEAKER) (test fzxs=050) 88.8 fL 79.0-92.2 MEAN CORPUSCULAR HEMOGLOBIN (BEAKER) (test 28.3 pg 25.7-32.2 ujyt=431) MEAN CORPUSCULAR HEMOGLOBIN CONC (BEAKER) (test 31.9 GM/DL 32.3-36.5 otdz=242) RED CELL DISTRIBUTION WIDTH (BEAKER) (test 19.6 % 11.6-14.4 gdnx=016) PLATELET COUNT (BEAKER) (test jcit=428) 211 K/CU MM 150-450 MEAN PLATELET VOLUME (BEAKER) (test rnio=649) 11.4 fL 9.4-12.4 NUCLEATED RED BLOOD CELLS (BEAKER) (test 0 /100 WBC 0-0 piyl=732) POCT-GLUCOSE [id number] 16:14:00 Test Item Value Reference Range Comments POC-GLUCOSE METER (BEAKER) 353 mg/dL 70-110 : TESTED AT [address] (test szvs=9598) [facility], [place], [address]: Motorboat Mechanic Inboard/Outboard/Early Head Start Teacher [id number] for TEZENO, GENE POCT-GLUCOSE [id number] 12:07:00 Test Item Value Reference Range Comments POC-GLUCOSE METER (BEAKER) 348 mg/dL 70-110 : TESTED AT [address] (test awyb=5666) [facility], [place], [address]: Motorboat Mechanic Inboard/Outboard/Early Head Start Teacher TV=[id number] for TEZENO, GENE POCT-GLUCOSE [id number] 11:06:00 Test Item Value Reference Range Comments POC-GLUCOSE METER (BEAKER) 315 mg/dL 70-110 : TESTED AT [facility] [address] (test exve=0961) [facility], [place], [address]: Motorboat Mechanic Inboard/Outboard/Early Head Start Teacher AY=[id number] for LESLIE TINAJERO PROTHROMBIN [id number] 08:36:00 Test Item Value Reference Range Comments PROTIME (BEAKER) (test jxen=309) 16.7 seconds 11.9-14.2 INR (BEAKER) (test nuwl=840) 1.4 <=5.9 Effective 07/17/2018: PT Reference Range ChangeNew: 11.9-14.2 Previous: 11.7- 14.7RECOMMENDED COUMADIN/WARFARIN INR THERAPY RANGESSTANDARD DOSE: 2.0-3.0 Includes: PROPHYLAXIS for venous thrombosis, systemic embolization; TREATMENT for venous thrombosis and/or pulmonary embolus.HIGH RISK: Target INR is2.5-3.5 for patients wiht mechanical heart valves.CBC W/PLT COUNT & AUTO [id number] 08:25:00 Test Item Value Reference Range Comments WHITE BLOOD CELL COUNT (BEAKER) (test nxzk=300) 8.4 K/ L 3.5-10.5 RED BLOOD CELL COUNT (BEAKER) (test igwp=321) 3.33 M/ L 4.63-6.08 HEMOGLOBIN (BEAKER) (test tmox=380) 9.6 GM/DL 13.7-17.5 HEMATOCRIT (BEAKER) (test ntqa=768) 29.6 % 40.1-51.0 MEAN CORPUSCULAR VOLUME (BEAKER) (test hkti=305) 88.9 fL 79.0-92.2 MEAN CORPUSCULAR HEMOGLOBIN (BEAKER) (test 28.8 pg 25.7-32.2 fgvu=530) MEAN CORPUSCULAR HEMOGLOBIN CONC (BEAKER) (test 32.4 GM/DL 32.3-36.5 jjgw=609) RED CELL DISTRIBUTION WIDTH (BEAKER) (test 19.6 % 11.6-14.4 hysh=465) PLATELET COUNT (BEAKER) (test ccrb=384) 176 K/CU MM 150-450 MEAN PLATELET VOLUME (BEAKER) (test scgz=156) 11.2 fL 9.4-12.4 NUCLEATED RED BLOOD CELLS (BEAKER) (test 0 /100 WBC 0-0 uteu=625) NEUTROPHILS RELATIVE PERCENT (BEAKER) (test 72 % melh=646) LYMPHOCYTES RELATIVE PERCENT (BEAKER) (test 18 % rifj=771) MONOCYTES RELATIVE PERCENT (BEAKER) (test 8 % povb=697) EOSINOPHILS RELATIVE PERCENT (BEAKER) (test 1 % yxav=780) BASOPHILS RELATIVE PERCENT (BEAKER) (test 1 % tcsw=543) NEUTROPHILS ABSOLUTE COUNT (BEAKER) (test 6.07 K/ L 1.78-5.38 orrs=854) LYMPHOCYTES ABSOLUTE COUNT (BEAKER) (test 1.55 K/ L 1.32-3.57 frql=215) MONOCYTES ABSOLUTE COUNT (BEAKER) (test 0.69 K/ L 0.30-0.82 nogl=176) EOSINOPHILS ABSOLUTE COUNT (BEAKER) (test 0.04 K/ L 0.04-0.54 sltv=851) BASOPHILS ABSOLUTE COUNT (BEAKER) (test 0.04 K/ L 0.01-0.08 bfsa=196) IMMATURE GRANULOCYTES-RELATIVE PERCENT (BEAKER) 0 % 0-1 (test fpkd=0805) POCT-GLUCOSE [id number] 07:45:00 Test Item Value Reference Range Comments POC-GLUCOSE METER (BEAKER) 257 mg/dL 70-110 : TESTED AT [facility] [address] [facility] (test hjxk=0031) [facility], [place], [address]: Motorboat Mechanic Inboard/Outboard/Early Head Start Teacher BP=[id number] for GENE MENDENHALL [id number] 07:03:00 Test Item Value Reference Range Comments PHOSPHORUS (BEAKER) (test kxml=392) 2.8 mg/dL 2.3-4.7 [id number] 07:03:00 Test Item Value Reference Range Comments MAGNESIUM (BEAKER) (test jhpk=142) 2.1 mg/dL 1.6-2.6 BASIC METABOLIC [id number] 07:03:00 Test Item Value Reference Range Comments SODIUM (BEAKER) (test 136 meq/L 136-145 qmmk=582) POTASSIUM (BEAKER) (test 4.1 meq/L 3.5-5.1 ogld=418) CHLORIDE (BEAKER) (test 104 meq/L 98-107 uroo=173) CO2 (BEAKER) (test 23 meq/L 22-29 eluw=589) BLOOD UREA NITROGEN 55 mg/dL 7-21 (BEAKER) (test lxaj=855) CREATININE (BEAKER) (test 1.62 mg/dL 0.57-1.25 eilm=680) GLUCOSE RANDOM (BEAKER) 270 mg/dL 70-105 (test roht=098) CALCIUM (BEAKER) (test 9.9 mg/dL 8.4-10.2 umyo=962) EGFR (BEAKER) (test 41 mL/min/1.73 sq m ESTIMATED GFR IS NOT yixz=9682) ACCURATE CREATININE CLEARANCE IN PREDICTING GLOMERULAR FILTRATION RATE. ESTIMATED GFR IS NOT APPLICABLE FOR DIALYSIS PATIENTS. HEPATIC FUNCTION [id number] 07:03:00 Test Item Value Reference Range Comments TOTAL PROTEIN (BEAKER) (test snqz=665) 6.1 gm/dL 6.0-8.3 ALBUMIN (BEAKER) (test rkdi=6729) 3.9 g/dL 3.5-5.0 BILIRUBIN TOTAL (BEAKER) (test tyoq=134) 1.2 mg/dL 0.2-1.2 BILIRUBIN DIRECT (BEAKER) (test qnsr=078) 0.7 mg/dL 0.1-0.5 ALKALINE PHOSPHATASE (BEAKER) (test umfc=933) 169 U/L 40-150 AST (SGOT) (BEAKER) (test cinw=998) 19 U/L 5-34 ALT (SGPT) (BEAKER) (test afwz=241) 21 U/L 6-55 CBC W/PLT COUNT & AUTO [id number] 06:21:00 Test Item Value Reference Range Comments WHITE BLOOD CELL COUNT (BEAKER) (test ahfv=067) 8.6 K/ L 3.5-10.5 RED BLOOD CELL COUNT (BEAKER) (test eyrm=463) 3.35 M/ L 4.63-6.08 HEMOGLOBIN (BEAKER) (test ctmt=474) 9.6 GM/DL 13.7-17.5 HEMATOCRIT (BEAKER) (test abpo=770) 29.6 % 40.1-51.0 MEAN CORPUSCULAR VOLUME (BEAKER) (test zmhr=635) 88.4 fL 79.0-92.2 MEAN CORPUSCULAR HEMOGLOBIN (BEAKER) (test 28.7 pg 25.7-32.2 etqc=502) MEAN CORPUSCULAR HEMOGLOBIN CONC (BEAKER) (test 32.4 GM/DL 32.3-36.5 swfo=796) RED CELL DISTRIBUTION WIDTH (BEAKER) (test 19.3 % 11.6-14.4 irdy=194) PLATELET COUNT (BEAKER) (test qces=466) 184 K/CU MM 150-450 MEAN PLATELET VOLUME (BEAKER) (test iyat=203) 11.7 fL 9.4-12.4 NUCLEATED RED BLOOD CELLS (BEAKER) (test 0 /100 WBC 0-0 ucwq=991) NEUTROPHILS RELATIVE PERCENT (BEAKER) (test 69 % dini=366) LYMPHOCYTES RELATIVE PERCENT (BEAKER) (test 21 % tlbh=453) MONOCYTES RELATIVE PERCENT (BEAKER) (test 9 % owpz=149) EOSINOPHILS RELATIVE PERCENT (BEAKER) (test 1 % cjov=276) BASOPHILS RELATIVE PERCENT (BEAKER) (test 1 % ylyw=297) NEUTROPHILS ABSOLUTE COUNT (BEAKER) (test 5.89 K/ L 1.78-5.38 aubi=535) LYMPHOCYTES ABSOLUTE COUNT (BEAKER) (test 1.83 K/ L 1.32-3.57 hkqj=382) MONOCYTES ABSOLUTE COUNT (BEAKER) (test 0.74 K/ L 0.30-0.82 uyiu=010) EOSINOPHILS ABSOLUTE COUNT (BEAKER) (test 0.04 K/ L 0.04-0.54 yiji=438) BASOPHILS ABSOLUTE COUNT (BEAKER) (test 0.05 K/ L 0.01-0.08 zvbc=091) IMMATURE GRANULOCYTES-RELATIVE PERCENT (BEAKER) 0 % 0-1 (test lnoa=9289) [id number] 06:20:00 Test Item Value Reference Range Comments PARTIAL THROMBOPLASTIN TIME (BEAKER) (test 43.3 seconds 22.5-36.0 lpiq=075) [id number] 03:22:00 Test Item Value Reference Range Comments PARTIAL THROMBOPLASTIN TIME (BEAKER) (test 121.5 seconds 22.5-36.0 ovfs=329) PROTHROMBIN [id number] 01:30:00 Test Item Value Reference Range Comments PROTIME (BEAKER) (test cfbm=220) 17.3 seconds 11.9-14.2 INR (BEAKER) (test orvh=215) 1.5 <=5.9 Effective 07/17/2018: PT Reference Range ChangeNew: 11.9-14.2 Previous: 11.7- 14.7RECOMMENDED COUMADIN/WARFARIN INR THERAPY RANGESSTANDARD DOSE: 2.0-3.0 Includes: PROPHYLAXIS for venous thrombosis, systemic embolization; TREATMENT for venous thrombosis and/or pulmonary embolus.HIGH RISK: Target INR is2.5-3.5 for patients wiht mechanical heart valves.POCT-GLUCOSE [id number] 22:25:00 Test Item Value Reference Range Comments POC-GLUCOSE METER (BEAKER) 321 mg/dL 70-110 : TESTED AT [address] (test tcwp=7660) [facility], [place], [address]: Motorboat Mechanic Inboard/Outboard/Early Head Start Teacher FC=[id number] for BREANNE SHRESTHA [id number] 19:16:00 Test Item Value Reference Range Comments PARTIAL THROMBOPLASTIN TIME (BEAKER) (test 73.4 seconds 22.5-36.0 tlbq=947) POCT-GLUCOSE [id number] 18:32:00 Test Item Value Reference Range Comments POC-GLUCOSE METER (BEAKER) 244 mg/dL 70-110 : TESTED AT [address] (test dynk=4688) [facility], [place], [address]: Motorboat Mechanic Inboard/Outboard/Early Head Start Teacher TS=[id number] for CONSUELO HANOMA POCT-GLUCOSE [id number] 14:19:00 Test Item Value Reference Range Comments POC-GLUCOSE METER (BEAKER) 230 mg/dL 70-110 : TESTED AT [address] (test swkp=2768) [facility], [place], [address]: Motorboat Mechanic Inboard/Outboard/Early Head Start Teacher EI=[id number] for ANAU, NIKOLAS [id number] 11:40:00 Test Item Value Reference Range Comments PARTIAL THROMBOPLASTIN TIME (BEAKER) (test 64.9 seconds 22.5-36.0 lejf=464) POCT-GLUCOSE [id number] 08:03:00 Test Item Value Reference Range Comments POC-GLUCOSE METER (BEAKER) 256 mg/dL 70-110 : TESTED AT [address] (test kgsp=7071) [facility], [place], [facility]: Motorboat Mechanic Inboard/Outboard/Early Head Start Teacher [id number] for GENE MENDENHALL [id number] 06:49:00 Test Item Value Reference Range Comments PHOSPHORUS (BEAKER) (test zfwb=891) 2.2 mg/dL 2.3-4.7 [id number] 06:49:00 Test Item Value Reference Range Comments MAGNESIUM (BEAKER) (test zegk=930) 2.2 mg/dL 1.6-2.6 HEPATIC FUNCTION [id number] 06:49:00 Test Item Value Reference Range Comments TOTAL PROTEIN (BEAKER) (test ldqm=880) 6.1 gm/dL 6.0-8.3 ALBUMIN (BEAKER) (test kenf=3808) 3.6 g/dL 3.5-5.0 BILIRUBIN TOTAL (BEAKER) (test zvjv=843) 1.1 mg/dL 0.2-1.2 BILIRUBIN DIRECT (BEAKER) (test kjgr=286) 0.7 mg/dL 0.1-0.5 ALKALINE PHOSPHATASE (BEAKER) (test jfqk=350) 218 U/L 40-150 AST (SGOT) (BEAKER) (test uqdm=075) 30 U/L 5-34 ALT (SGPT) (BEAKER) (test wmxv=832) 34 U/L 6-55 COMPREHENSIVE METABOLIC [id number] 06:49:00 Test Item Value Reference Range Comments TOTAL PROTEIN (BEAKER) 6.1 gm/dL 6.0-8.3 (test dmmi=655) ALBUMIN (BEAKER) (test 3.6 g/dL 3.5-5.0 mpoq=8519) ALKALINE PHOSPHATASE 218 U/L 40-150 (BEAKER) (test dxak=368) BILIRUBIN TOTAL (BEAKER) 1.1 mg/dL 0.2-1.2 (test csvo=076) SODIUM (BEAKER) (test 134 meq/L 136-145 uwnm=255) POTASSIUM (BEAKER) (test 4.4 meq/L 3.5-5.1 tsbs=170) CHLORIDE (BEAKER) (test 104 meq/L 98-107 nqju=019) CO2 (BEAKER) (test 22 meq/L 22-29 lwpk=598) BLOOD UREA NITROGEN 53 mg/dL 7-21 (BEAKER) (test vvnz=344) CREATININE (BEAKER) (test 1.66 mg/dL 0.57-1.25 evfx=439) GLUCOSE RANDOM (BEAKER) 262 mg/dL 70-105 (test qbji=057) CALCIUM (BEAKER) (test 9.9 mg/dL 8.4-10.2 awib=024) AST (SGOT) (BEAKER) (test 30 U/L 5-34 epns=811) ALT (SGPT) (BEAKER) (test 34 U/L 6-55 shze=917) EGFR (BEAKER) (test 40 mL/min/1.73 sq m ESTIMATED GFR IS NOT nfks=2006) ACCURATE CREATININE CLEARANCE IN PREDICTING GLOMERULAR FILTRATION RATE. ESTIMATED GFR IS NOT APPLICABLE FOR DIALYSIS PATIENTS. CBC W/PLT COUNT & AUTO [id number] 06:16:00 Test Item Value Reference Range Comments WHITE BLOOD CELL COUNT (BEAKER) (test nrfr=872) 8.3 K/ L 3.5-10.5 RED BLOOD CELL COUNT (BEAKER) (test ruxu=707) 3.78 M/ L 4.63-6.08 HEMOGLOBIN (BEAKER) (test eceu=716) 10.9 GM/DL 13.7-17.5 HEMATOCRIT (BEAKER) (test agdh=025) 33.3 % 40.1-51.0 MEAN CORPUSCULAR VOLUME (BEAKER) (test hbjy=664) 88.1 fL 79.0-92.2 MEAN CORPUSCULAR HEMOGLOBIN (BEAKER) (test 28.8 pg 25.7-32.2 vkux=211) MEAN CORPUSCULAR HEMOGLOBIN CONC (BEAKER) (test 32.7 GM/DL 32.3-36.5 yorb=887) RED CELL DISTRIBUTION WIDTH (BEAKER) (test 19.4 % 11.6-14.4 dydp=526) PLATELET COUNT (BEAKER) (test bdkq=979) 189 K/CU MM 150-450 MEAN PLATELET VOLUME (BEAKER) (test ilha=248) 11.7 fL 9.4-12.4 NUCLEATED RED BLOOD CELLS (BEAKER) (test 0 /100 WBC 0-0 rgil=784) NEUTROPHILS RELATIVE PERCENT (BEAKER) (test 62 % cwzo=164) LYMPHOCYTES RELATIVE PERCENT (BEAKER) (test 25 % ybhp=009) MONOCYTES RELATIVE PERCENT (BEAKER) (test 10 % bhob=310) EOSINOPHILS RELATIVE PERCENT (BEAKER) (test 2 % tfsc=444) BASOPHILS RELATIVE PERCENT (BEAKER) (test 1 % qdoh=306) NEUTROPHILS ABSOLUTE COUNT (BEAKER) (test 5.15 K/ L 1.78-5.38 jvyv=819) LYMPHOCYTES ABSOLUTE COUNT (BEAKER) (test 2.07 K/ L 1.32-3.57 mbfh=747) MONOCYTES ABSOLUTE COUNT (BEAKER) (test 0.82 K/ L 0.30-0.82 uxnd=486) EOSINOPHILS ABSOLUTE COUNT (BEAKER) (test 0.16 K/ L 0.04-0.54 pddk=686) BASOPHILS ABSOLUTE COUNT (BEAKER) (test 0.07 K/ L 0.01-0.08 oihw=408) IMMATURE GRANULOCYTES-RELATIVE PERCENT (BEAKER) 0 % 0-1 (test gqbu=8695) PROTHROMBIN [id number] 06:03:00 Test Item Value Reference Range Comments PROTIME (BEAKER) (test kxgl=478) 16.3 seconds 11.9-14.2 INR (BEAKER) (test xyno=604) 1.4 <=5.9 Effective 07/17/2018: PT Reference Range ChangeNew: 11.9-14.2 Previous: 11.7- 14.7RECOMMENDED COUMADIN/WARFARIN INR THERAPY RANGESSTANDARD DOSE: 2.0-3.0 Includes: PROPHYLAXIS for venous thrombosis, systemic embolization; TREATMENT for venous thrombosis and/or pulmonary embolus.HIGH RISK: Target INR is2.5-3.5 for patients wiht mechanical heart valves.BLOOD [id number] 05:00:00 Test Item Value Reference Range Comments CULTURE (BEAKER) (test bkqb=1350) No growth in 5 days POCT-GLUCOSE [id number] 21:51:00 Test Item Value Reference Range Comments POC-GLUCOSE METER (BEAKER) 233 mg/dL 70-110 : [facility] [address] [facility] (test lkao=8121) [facility], [place], [id number]: [employer] Inboard/Outboard/Early [employer] Start Teacher [id number] for FLACO DEL TORO POCT-GLUCOSE [id number] 18:30:00 Test Item Value Reference Range Comments POC-GLUCOSE METER (BEAKER) 282 mg/dL 70-110 : TESTED AT [facility] [address] [facility] (test hcqj=4474) [facility], [place], [address]: Motorboat Mechanic Inboard/Outboard/Early Head Start Teacher [id number] for BARBI ALMAZAN [id number] 17:54:00 Test Item Value Reference Range Comments PARTIAL THROMBOPLASTIN TIME (BEAKER) (test 93.2 seconds 22.5-36.0 kdql=249) POCT-GLUCOSE [id number] 11:49:00 Test Item Value Reference Range Comments POC-GLUCOSE METER (BEAKER) 292 mg/dL 70-110 : TESTED AT [facility] [address] [facility] (test lnit=8624) [facility], [place], [address]: Motorboat [employer]ic Inboard/Outboard/Early Head Start Teacher [id number] for BARBI ALMAZAN [id number] 10:50:00 Test Item Value Reference Range Comments PARTIAL THROMBOPLASTIN TIME (BEAKER) (test 83.7 seconds 22.5-36.0 dilj=401) POCT-GLUCOSE [id number] 09:01:00 Test Item Value Reference Range Comments POC-GLUCOSE METER (BEAKER) 244 mg/dL 70-110 : TESTED AT [facility] [address] [facility] (test bhyh=7137) [facility], [place], [address]: Motorboat Mechanic Inboard/Outboard/Early Head Start Teacher [id number] for BARBI ALMAZAN [id number] 07:11:00 Test Item Value Reference Range Comments PHOSPHORUS (BEAKER) (test zowx=898) 2.0 mg/dL 2.3-4.7 [id number] 07:11:00 Test Item Value Reference Range Comments MAGNESIUM (BEAKER) (test kexe=468) 2.2 mg/dL 1.6-2.6 HEPATIC FUNCTION [id number] 07:11:00 Test Item Value Reference Range Comments TOTAL PROTEIN (BEAKER) (test qwqu=477) 5.6 gm/dL 6.0-8.3 ALBUMIN (BEAKER) (test tkbr=0388) 3.1 g/dL 3.5-5.0 BILIRUBIN TOTAL (BEAKER) (test egyk=578) 1.1 mg/dL 0.2-1.2 BILIRUBIN DIRECT (BEAKER) (test xfvj=790) 0.6 mg/dL 0.1-0.5 ALKALINE PHOSPHATASE (BEAKER) (test xdce=982) 243 U/L 40-150 AST (SGOT) (BEAKER) (test jnfo=903) 42 U/L 5-34 ALT (SGPT) (BEAKER) (test shnb=848) 41 U/L 6-55 COMPREHENSIVE METABOLIC [id number] 07:11:00 Test Item Value Reference Range Comments TOTAL PROTEIN (BEAKER) 5.6 gm/dL 6.0-8.3 (test wfgx=500) ALBUMIN (BEAKER) (test 3.1 g/dL 3.5-5.0 desn=5564) ALKALINE PHOSPHATASE 243 U/L 40-150 (BEAKER) (test jjvz=243) BILIRUBIN TOTAL (BEAKER) 1.1 mg/dL 0.2-1.2 (test yxjq=912) SODIUM (BEAKER) (test 134 meq/L 136-145 cdlu=877) POTASSIUM (BEAKER) (test 4.3 meq/L 3.5-5.1 dmnd=032) CHLORIDE (BEAKER) (test 105 meq/L 98-107 mnqb=365) CO2 (BEAKER) (test 24 meq/L 22-29 waib=290) BLOOD UREA NITROGEN 56 mg/dL 7-21 (BEAKER) (test gbag=632) CREATININE (BEAKER) (test 1.55 mg/dL 0.57-1.25 zbeq=179) GLUCOSE RANDOM (BEAKER) 239 mg/dL 70-105 (test mcqq=297) CALCIUM (BEAKER) (test 9.6 mg/dL 8.4-10.2 sjzv=047) AST (SGOT) (BEAKER) (test 42 U/L 5-34 gofu=087) ALT (SGPT) (BEAKER) (test 41 U/L 6-55 ctuz=314) EGFR (BEAKER) (test 43 mL/min/1.73 sq m ESTIMATED GFR IS NOT umhm=3368) ACCURATE CREATININE CLEARANCE IN PREDICTING GLOMERULAR FILTRATION RATE. ESTIMATED GFR IS NOT APPLICABLE FOR DIALYSIS PATIENTS. CBC W/PLT COUNT & AUTO [id number] 06:32:00 Test Item Value Reference Range Comments WHITE BLOOD CELL COUNT (BEAKER) (test nuwd=481) 7.1 K/ L 3.5-10.5 RED BLOOD CELL COUNT (BEAKER) (test onyg=063) 3.84 M/ L 4.63-6.08 HEMOGLOBIN (BEAKER) (test cdcy=380) 11.0 GM/DL 13.7-17.5 HEMATOCRIT (BEAKER) (test dhdd=217) 33.5 % 40.1-51.0 MEAN CORPUSCULAR VOLUME (BEAKER) (test mlsz=640) 87.2 fL 79.0-92.2 MEAN CORPUSCULAR HEMOGLOBIN (BEAKER) (test 28.6 pg 25.7-32.2 chtp=976) MEAN CORPUSCULAR HEMOGLOBIN CONC (BEAKER) (test 32.8 GM/DL 32.3-36.5 kebu=373) RED CELL DISTRIBUTION WIDTH (BEAKER) (test 19.4 % 11.6-14.4 iyhh=422) PLATELET COUNT (BEAKER) (test ubfx=025) 207 K/CU MM 150-450 MEAN PLATELET VOLUME (BEAKER) (test xhdr=770) 11.6 fL 9.4-12.4 NUCLEATED RED BLOOD CELLS (BEAKER) (test 0 /100 WBC 0-0 kumo=456) NEUTROPHILS RELATIVE PERCENT (BEAKER) (test 59 % xmww=497) LYMPHOCYTES RELATIVE PERCENT (BEAKER) (test 26 % pafh=202) MONOCYTES RELATIVE PERCENT (BEAKER) (test 12 % igfn=809) EOSINOPHILS RELATIVE PERCENT (BEAKER) (test 3 % hnpk=280) BASOPHILS RELATIVE PERCENT (BEAKER) (test 1 % rjiy=462) NEUTROPHILS ABSOLUTE COUNT (BEAKER) (test 4.18 K/ L 1.78-5.38 baok=761) LYMPHOCYTES ABSOLUTE COUNT (BEAKER) (test 1.80 K/ L 1.32-3.57 zivv=947) MONOCYTES ABSOLUTE COUNT (BEAKER) (test 0.81 K/ L 0.30-0.82 agym=884) EOSINOPHILS ABSOLUTE COUNT (BEAKER) (test 0.18 K/ L 0.04-0.54 xuth=067) BASOPHILS ABSOLUTE COUNT (BEAKER) (test 0.07 K/ L 0.01-0.08 myos=413) IMMATURE GRANULOCYTES-RELATIVE PERCENT (BEAKER) 0 % 0-1 (test snxy=1542) CALCIUM, [id number] 06:29:00 Test Item Value Reference Range Comments CALCIUM IONIZED (BEAKER) (test marl=306) 1.29 mmol/L 1.12-1.27 PH, BLOOD (BEAKER) (test hqki=4996) 7.36 [id number] 02:38:00 Test Item Value Reference Range Comments PARTIAL THROMBOPLASTIN TIME (BEAKER) (test 84.8 seconds 22.5-36.0 jxmr=774) POCT-GLUCOSE [id number] 01:00:00 Test Item Value Reference Range Comments POC-GLUCOSE METER (BEAKER) 246 mg/dL 70-110 : TESTED AT [address] (test curj=2061) [facility], [place], [address]: 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 Rebreathing/washout images were obtained in the anterior and the posterior projections. 4.3 mCi of Tc-99m MAA was then injected intravenously, and static perfusion images were obtained in multiple projections. FINDINGS: Ventilation: Initial tracer distribution is decrease in the upper lobes. Washout is delayed. Perfusion: Tracer distribution is nonsegmental heterogeneous. IMPRESSION: 1. Low probability of acute pulmonary embolization.2. Findings are most consistent with COPD. Signed: Rich Rick [facility] Verified Date/Time: 02/01/2019 19:58:49 POCT- GLUCOSE [id number] 17:34:00 Test Item Value Reference Range Comments POC-GLUCOSE METER (BEAKER) 195 mg/dL 70-110 : TESTED AT [address] (test bpoi=0473) [facility], [place], [address]: Motorboat Mechanic Inboard/Outboard/Early [employer] Start Teacher [id number] for JOAQUIN CROWE POCT-GLUCOSE [id number] 17:28:00 Test Item Value Reference Range Comments POC-GLUCOSE METER (BEAKER) 353 mg/dL 70-110 : TESTED AT [facility] [address] (test lhyo=4212) [facility], [place], [address]: Motorboat Mechanic Inboard/Outboard/Early [employer] Start Teacher [id number] for GENE MENDENHALL [id number] 17:10:00 Test Item Value Reference Range Comments PARTIAL THROMBOPLASTIN TIME (BEAKER) (test 44.0 seconds 22.5-36.0 gnbe=483) 6 hours after starting heparin infusion and [facility]2019-02-01 16:58:00 Test Item Value Reference Range Comments WHITE BLOOD CELL COUNT (BEAKER) (test rptg=857) 7.9 K/ L 3.5-10.5 RED BLOOD CELL COUNT (BEAKER) (test zyeb=743) 3.43 M/ L 4.63-6.08 HEMOGLOBIN (BEAKER) (test uyhr=297) 9.9 GM/DL 13.7-17.5 HEMATOCRIT (BEAKER) (test rkic=698) 30.4 % 40.1-51.0 MEAN CORPUSCULAR VOLUME (BEAKER) (test rwyg=180) 88.6 fL 79.0-92.2 MEAN CORPUSCULAR HEMOGLOBIN (BEAKER) (test 28.9 pg 25.7-32.2 pgxl=562) MEAN CORPUSCULAR HEMOGLOBIN CONC (BEAKER) (test 32.6 GM/DL 32.3-36.5 iahn=441) RED CELL DISTRIBUTION WIDTH (BEAKER) (test 18.9 % 11.6-14.4 eiiz=557) PLATELET COUNT (BEAKER) (test duqt=736) 153 K/CU MM 150-450 MEAN PLATELET VOLUME (BEAKER) (test gpow=329) 11.0 fL 9.4-12.4 NUCLEATED RED BLOOD CELLS (BEAKER) (test 0 /100 WBC 0-0 qovn=422) RAD, CHEST, 2 [id number] 16:51:00Reason for exam:->Abnormal Portable cxrFINAL REPORT Chest, 1 view. History: Abnormal portable chest x-ray. Comparison: 01/29/2019. Impression: The previously visualized density over the left lower hemithorax is no longer appreciated on this examination and was likely external to the patient. Post surgical changes from prior median sternotomy noted. The trachea is midline. There is no evidence for large focal consolidation, pneumothorax, or significant pleural effusion. The cardiomediastinal silhouette is stable inappearance. No acute osseous abnormality identified. Signed: Jose Alejandro Palmer Verified Date/ Time: 02/01/2019 16:51:07 Reading Location: [address] Ortho Consult Reading Room TROPONIN [id number] 11:16:00 Test Item Value Reference Range Comments TROPONIN I (BEAKER) (test nbej=186) 0.08 ng/mL 0.00-0.03 Troponin I (TnI) levels must be interpreted in the context of the presenting symptoms and the clinical findings. Elevated TnI levels indicate myocardial damage, but are not specific for ischemic heart disease. Elevated TnI levels are seen in patients with other cardiac conditions (including myocarditis and congestive heart failure), and slight TnI elevations occur in patients with other conditions, including sepsis, renal failure, acidosis, acute neurological disease, and persistent tachyarrhythmia.TROPONIN [id number] 10:01:00 Test Item Value Reference Range Comments TROPONIN I (BEAKER) (test fela=167) 0.12 ng/mL 0.00-0.03 Troponin I (TnI) levels must be interpreted in the context of the presenting symptoms and the clinical findings. Elevated TnI levels indicate myocardial damage, but are not specific for ischemic heart disease. Elevated TnI levels are seen in patients with other cardiac conditions (including myocarditis and congestive heart failure), and slight TnI elevations occur in patients with other conditions, including sepsis, renal failure, acidosis, acute neurological disease, and persistent tachyarrhythmia.POCT-GLUCOSE [id number] 08:04:00 Test Item Value Reference Range Comments POC-GLUCOSE METER (BEAKER) 295 mg/dL 70-110 : TESTED AT [facility] [address] [facility] (test gazd=4491) [facility], [place], [address]: Motorboat Mechanic Inboard/Outboard/Early Head Start Teacher [id number] for GENE MENDENHALL [id number] 04:49:00 Test Item Value Reference Range Comments MAGNESIUM (BEAKER) (test 2.3 mg/dL 1.6-2.6 Specimen slightly hemolyzed ofao=961) [id number] 04:49:00 Test Item Value Reference Range Comments PHOSPHORUS (BEAKER) (test 2.3 mg/dL 2.3-4.7 Specimen slightly hemolyzed gdpl=476) COMPREHENSIVE METABOLIC [id number] 04:49:00 Test Item Value Reference Range Comments TOTAL PROTEIN (BEAKER) 5.8 gm/dL 6.0-8.3 Specimen slightly (test dkfa=972) hemolyzed ALBUMIN (BEAKER) (test 3.1 g/dL 3.5-5.0 Specimen slightly hsri=9821) hemolyzed ALKALINE PHOSPHATASE 238 U/L 40-150 (BEAKER) (test rhaw=482) BILIRUBIN TOTAL (BEAKER) 1.2 mg/dL 0.2-1.2 Specimen slightly (test zpzc=325) hemolyzed SODIUM (BEAKER) (test 133 meq/L 136-145 enzu=129) POTASSIUM (BEAKER) (test 4.7 meq/L 3.5-5.1 Specimen slightly euts=219) hemolyzed CHLORIDE (BEAKER) (test 105 meq/L 98-107 rsuw=448) CO2 (BEAKER) (test 22 meq/L 22-29 ubnz=762) BLOOD UREA NITROGEN 58 mg/dL 7-21 (BEAKER) (test haww=185) CREATININE (BEAKER) (test 1.83 mg/dL 0.57-1.25 Specimen slightly xlxx=498) hemolyzed GLUCOSE RANDOM (BEAKER) 311 mg/dL 70-105 (test vzko=540) CALCIUM (BEAKER) (test 9.5 mg/dL 8.4-10.2 lcbg=382) AST (SGOT) (BEAKER) (test 52 U/L 5-34 Specimen slightly tlvf=704) hemolyzed ALT (SGPT) (BEAKER) (test 42 U/L 6-55 Specimen slightly gxed=558) hemolyzed EGFR (BEAKER) (test 36 mL/min/1.73 sq m ESTIMATED GFR IS NOT sfuw=6053) ACCURATE CREATININE CLEARANCE IN PREDICTING GLOMERULAR FILTRATION RATE. ESTIMATED GFR IS NOT APPLICABLE FOR DIALYSIS PATIENTS. B-TYPE NATRIURETIC FACTOR (BNP)2019-02-01 04:39:00 Test Item Value Reference Range Comments B-TYPE NATRIURETIC PEPTIDE (BEAKER) (test 1037 pg/mL 0-100 barv=422) CBC W/PLT COUNT & AUTO [id number] 04:23:00 Test Item Value Reference Range Comments WHITE BLOOD CELL COUNT (BEAKER) (test ofbx=112) 6.7 K/ L 3.5-10.5 RED BLOOD CELL COUNT (BEAKER) (test fzcd=757) 3.22 M/ L 4.63-6.08 HEMOGLOBIN (BEAKER) (test nayt=439) 9.4 GM/DL 13.7-17.5 HEMATOCRIT (BEAKER) (test lhfv=562) 28.7 % 40.1-51.0 MEAN CORPUSCULAR VOLUME (BEAKER) (test iwsj=643) 89.1 fL 79.0-92.2 MEAN CORPUSCULAR HEMOGLOBIN (BEAKER) (test 29.2 pg 25.7-32.2 efhe=006) MEAN CORPUSCULAR HEMOGLOBIN CONC (BEAKER) (test 32.8 GM/DL 32.3-36.5 vvvr=024) RED CELL DISTRIBUTION WIDTH (BEAKER) (test 19.1 % 11.6-14.4 qgrp=305) PLATELET COUNT (BEAKER) (test sgmz=407) 157 K/CU MM 150-450 MEAN PLATELET VOLUME (BEAKER) (test iqtf=289) 11.7 fL 9.4-12.4 NUCLEATED RED BLOOD CELLS (BEAKER) (test 0 /100 WBC 0-0 vrhk=176) NEUTROPHILS RELATIVE PERCENT (BEAKER) (test 61 % sutm=782) LYMPHOCYTES RELATIVE PERCENT (BEAKER) (test 24 % chbl=737) MONOCYTES RELATIVE PERCENT (BEAKER) (test 12 % wpzl=251) EOSINOPHILS RELATIVE PERCENT (BEAKER) (test 2 % qwyj=948) BASOPHILS RELATIVE PERCENT (BEAKER) (test 1 % zamx=723) NEUTROPHILS ABSOLUTE COUNT (BEAKER) (test 4.06 K/ L 1.78-5.38 cxbo=218) LYMPHOCYTES ABSOLUTE COUNT (BEAKER) (test 1.59 K/ L 1.32-3.57 ckyw=939) MONOCYTES ABSOLUTE COUNT (BEAKER) (test 0.81 K/ L 0.30-0.82 hbeq=553) EOSINOPHILS ABSOLUTE COUNT (BEAKER) (test 0.11 K/ L 0.04-0.54 pljj=883) BASOPHILS ABSOLUTE COUNT (BEAKER) (test 0.06 K/ L 0.01-0.08 tejk=622) IMMATURE GRANULOCYTES-RELATIVE PERCENT (BEAKER) 0 % 0-1 (test adio=6710) CALCIUM, [id number] 04:20:00 Test Item Value Reference Range Comments CALCIUM IONIZED (BEAKER) (test iwvi=039) 1.18 mmol/L 1.12-1.27 PH, BLOOD (BEAKER) (test jpxc=9116) 7.45 POCT-GLUCOSE [id number] 02:30:00 Test Item Value Reference Range Comments POC-GLUCOSE METER (BEAKER) 288 mg/dL 70-110 : TESTED AT [address] (test gujp=8024) [facility], [place], [address]: Motorboat Mechanic Inboard/Outboard/Early Head Start Teacher [id number] for SUBLET, FELIPE POCT-GLUCOSE [id number] 23:48:00 Test Item Value Reference Range Comments POC-GLUCOSE METER (BEAKER) 305 mg/dL 70-110 : TESTED AT [address] (test fkbt=8510) [facility], [place], [address]: Motorboat Mechanic Inboard/Outboard/Early Head Start Teacher [id number] for SUBLET, FELIPE POCT-GLUCOSE [id number] 18:01:00 Test Item Value Reference Range Comments POC-GLUCOSE METER (BEAKER) 216 mg/dL 70-110 : TESTED AT [address] (test rojb=1958) [facility], [place], [address]: Motorboat Mechanic Inboard/Outboard/Early Head Start Teacher [id number] for DOBARBI WEBSTER POCT-GLUCOSE [id number] 13:53:00 Test Item Value Reference Range Comments POC-GLUCOSE METER (BEAKER) 225 mg/dL 70-110 : TESTED AT [address] (test uciy=0484) [facility], [place], [address]: Motorboat Mechanic Inboard/Outboard/Early Head Start Teacher [id number] for AXEL MCGEE LACTIC ACID, [id number] 13:01:00 Test Item Value Reference Range Comments LACTATE BLOOD VENOUS (2) 2.2 mmol/L 0.5-2.2 Specimen slightly hemolyzed (BEAKER) (test xfce=9349) URINE [id number] 11:56:00 Test Item Value Reference Range Comments CULTURE (BEAKER) (test txpw=1133) <10,000 col/mL skin kylah POCT-GLUCOSE [id number] 11:53:00 Test Item Value Reference Range Comments POC-GLUCOSE METER (BEAKER) 237 mg/dL 70-110 : TESTED AT [address] (test jkkh=8082) [facility], [place], [address]: Motorboat Mechanic Inboard/Outboard/Early Head Start Teacher [id number] for BARBI ALMAZAN POCT-GLUCOSE [id number] 10:41:00 Test Item Value Reference Range Comments POC-GLUCOSE METER (BEAKER) 239 mg/dL 70-110 : TESTED AT [address] (test feyi=0889) [facility], [place], [address]: Motorboat Mechanic Inboard/Outboard/Early Head Start Teacher [id number] for AXEL MCGEE HEMOGLOBIN [id number] 08:45:00 Test Item Value Reference Range Comments HEMOGLOBIN A1C (BEAKER) (test hjmf=822) 9.1 % 4.3-6.1 POCT-GLUCOSE [id number] 08:09:00 Test Item Value Reference Range Comments POC-GLUCOSE METER (BEAKER) 228 mg/dL 70-110 : TESTED AT [address] (test ehyn=9372) [facility], [place], [address]: Motorboat Mechanic Inboard/Outboard/Early Head Start Teacher [id number] for BARBI ALMAZAN CALCIUM, [id number] 03:24:00 Test Item Value Reference Range Comments CALCIUM IONIZED (BEAKER) (test yrdf=726) 1.20 mmol/L 1.12-1.27 PH, BLOOD (BEAKER) (test ovei=6226) 7.52 [id number] 03:21:00 Test Item Value Reference Range Comments PHOSPHORUS (BEAKER) (test uszw=720) 2.6 mg/dL 2.3-4.7 [id number] 03:21:00 Test Item Value Reference Range Comments MAGNESIUM (BEAKER) (test gqcq=809) 2.4 mg/dL 1.6-2.6 HEPATIC FUNCTION [id number] 03:21:00 Test Item Value Reference Range Comments TOTAL PROTEIN (BEAKER) (test jvvh=434) 5.7 gm/dL 6.0-8.3 ALBUMIN (BEAKER) (test vnsx=8657) 2.8 g/dL 3.5-5.0 BILIRUBIN TOTAL (BEAKER) (test ybxi=623) 1.0 mg/dL 0.2-1.2 BILIRUBIN DIRECT (BEAKER) (test jagm=957) 0.5 mg/dL 0.1-0.5 ALKALINE PHOSPHATASE (BEAKER) (test qbng=663) 219 U/L 40-150 AST (SGOT) (BEAKER) (test vbxk=327) 45 U/L 5-34 ALT (SGPT) (BEAKER) (test avdf=416) 41 U/L 6-55 COMPREHENSIVE METABOLIC [id number] 03:21:00 Test Item Value Reference Range Comments TOTAL PROTEIN (BEAKER) 5.7 gm/dL 6.0-8.3 (test agmy=087) ALBUMIN (BEAKER) (test 2.8 g/dL 3.5-5.0 dmuk=3600) ALKALINE PHOSPHATASE 219 U/L 40-150 (BEAKER) (test wjtk=144) BILIRUBIN TOTAL (BEAKER) 1.0 mg/dL 0.2-1.2 (test mche=847) SODIUM (BEAKER) (test 134 meq/L 136-145 dtaq=386) POTASSIUM (BEAKER) (test 4.4 meq/L 3.5-5.1 poxr=533) CHLORIDE (BEAKER) (test 107 meq/L 98-107 hrhw=768) CO2 (BEAKER) (test 21 meq/L 22-29 vijq=912) BLOOD UREA NITROGEN 61 mg/dL 7-21 (BEAKER) (test bkgj=253) CREATININE (BEAKER) (test 1.64 mg/dL 0.57-1.25 jpyq=618) GLUCOSE RANDOM (BEAKER) 251 mg/dL 70-105 (test hizq=801) CALCIUM (BEAKER) (test 9.4 mg/dL 8.4-10.2 nmav=212) AST (SGOT) (BEAKER) (test 45 U/L 5-34 xnkf=991) ALT (SGPT) (BEAKER) (test 41 U/L 6-55 bngw=811) EGFR (BEAKER) (test 41 mL/min/1.73 sq m ESTIMATED GFR IS NOT ztml=9706) ACCURATE CREATININE CLEARANCE IN PREDICTING GLOMERULAR FILTRATION RATE. ESTIMATED GFR IS NOT APPLICABLE FOR DIALYSIS PATIENTS. PT/[id number] 03:20:00 Test Item Value Reference Range Comments PROTIME (BEAKER) (test tbtx=018) 17.7 seconds 11.9-14.2 INR (BEAKER) (test vfsa=397) 1.5 <=5.9 PARTIAL THROMBOPLASTIN TIME (BEAKER) (test 42.4 seconds 22.5-36.0 iyoq=702) Effective 07/17/2018: PT Reference Range ChangeNew: 11.9-14.2 Previous: 11.7- 14.7RECOMMENDED COUMADIN/WARFARIN INR THERAPY RANGESSTANDARD DOSE: 2.0-3.0 Includes: PROPHYLAXIS for venous thrombosis, systemic embolization; TREATMENT for venous thrombosis and/or pulmonary embolus.HIGH RISK: Target INR is2.5-3.5 for patients wiht mechanical heart valves.PROTHROMBIN TIME/[id number] 03:19: 00 Test Item Value Reference Range Comments PROTIME (BEAKER) (test ecci=690) 17.7 seconds 11.9-14.2 INR (BEAKER) (test vljw=812) 1.5 <=5.9 Effective 07/17/2018: PT Reference Range ChangeNew: 11.9-14.2 Previous: 11.7- 14.7RECOMMENDED COUMADIN/WARFARIN INR THERAPY RANGESSTANDARD DOSE: 2.0-3.0 Includes: PROPHYLAXIS for venous thrombosis, systemic embolization; TREATMENT for venous thrombosis and/or pulmonary embolus.HIGH RISK: Target INR is2.5-3.5 for patients wiht mechanical heart valves.CBC W/PLT COUNT & AUTO [id number] 03:03:00 Test Item Value Reference Range Comments WHITE BLOOD CELL COUNT (BEAKER) (test ntee=902) 7.6 K/ L 3.5-10.5 RED BLOOD CELL COUNT (BEAKER) (test eqau=870) 3.46 M/ L 4.63-6.08 HEMOGLOBIN (BEAKER) (test qmia=592) 9.9 GM/DL 13.7-17.5 HEMATOCRIT (BEAKER) (test iybb=423) 30.8 % 40.1-51.0 MEAN CORPUSCULAR VOLUME (BEAKER) (test mmax=269) 89.0 fL 79.0-92.2 MEAN CORPUSCULAR HEMOGLOBIN (BEAKER) (test 28.6 pg 25.7-32.2 qtcz=399) MEAN CORPUSCULAR HEMOGLOBIN CONC (BEAKER) (test 32.1 GM/DL 32.3-36.5 chxq=432) RED CELL DISTRIBUTION WIDTH (BEAKER) (test 19.4 % 11.6-14.4 rsgf=144) PLATELET COUNT (BEAKER) (test wjtm=949) 178 K/CU MM 150-450 MEAN PLATELET VOLUME (BEAKER) (test nruq=803) 11.9 fL 9.4-12.4 NUCLEATED RED BLOOD CELLS (BEAKER) (test 0 /100 WBC 0-0 hcma=657) NEUTROPHILS RELATIVE PERCENT (BEAKER) (test 60 % bzdl=866) LYMPHOCYTES RELATIVE PERCENT (BEAKER) (test 26 % arme=777) MONOCYTES RELATIVE PERCENT (BEAKER) (test 12 % lkpg=839) EOSINOPHILS RELATIVE PERCENT (BEAKER) (test 2 % iqmk=288) BASOPHILS RELATIVE PERCENT (BEAKER) (test 1 % niyw=763) NEUTROPHILS ABSOLUTE COUNT (BEAKER) (test 4.53 K/ L 1.78-5.38 cgjf=039) LYMPHOCYTES ABSOLUTE COUNT (BEAKER) (test 1.97 K/ L 1.32-3.57 wcak=752) MONOCYTES ABSOLUTE COUNT (BEAKER) (test 0.87 K/ L 0.30-0.82 yqrc=615) EOSINOPHILS ABSOLUTE COUNT (BEAKER) (test 0.11 K/ L 0.04-0.54 atdb=356) BASOPHILS ABSOLUTE COUNT (BEAKER) (test 0.06 K/ L 0.01-0.08 yobs=632) IMMATURE GRANULOCYTES-RELATIVE PERCENT (BEAKER) 0 % 0-1 (test ukmo=1155) POCT-GLUCOSE [id number] 22:22:00 Test Item Value Reference Range Comments POC-GLUCOSE METER (BEAKER) 218 mg/dL 70-110 : TESTED AT [place] [id number] [facility] (test beki=1466) [facility], [place], [address]: Motorboat Mechanic Inboard/Outboard/Early [employer] Start Teacher [id number] for JOHNIE MCKEON POCT-GLUCOSE [id number] 17:18:00 Test Item Value Reference Range Comments POC-GLUCOSE METER (BEAKER) 300 mg/dL 70-110 : TESTED AT [place] [id number] [facility] (test hctl=7509) [facility], [place], [address]: Motorboat Mechanic Inboard/Outboard/Early Head Start Teacher [id number] for GENE MENDENHALL POCT-GLUCOSE [id number] 14:08:00 Test Item Value Reference Range Comments POC-GLUCOSE METER (LANNY) 279 mg/dL 70-110 : TESTED AT [facility] [address] (test tniz=0353) [facility], [place], [address]: Motorboat Mechanic Inboard/Outboard/Early Head Start Teacher [id number] for GENE MENDENHALL HEMOGLOBIN [id number] 09:08:00 Test Item Value Reference Range Comments HEMOGLOBIN A1C (LANNY) (test wozl=658) 9.0 % 4.3-6.1 U/S, ABDOMINAL, [id number] 08:48:00Reason for exam:->Hx of cirrhosis ; ?hx of TIPS, rule out PVTFINAL REPORT TECHNIQUE: Grayscale ultrasound of the abdomen with color Doppler and spectral Doppler ultrasound of the portal/hepatic vasculature. INDICATION: Hx of cirrhosis; ? hxof TIPS, rule out PVT. COMPARISON: Chest radiograph from 01/29/2019. FINDINGS : LIVER: Nodular livercontour. No focal liver lesions. HEPATIC VASCULATURE: Portal veins are patent with normal waveform and directionality. Flow velocity in the main portal vein is within normal limits. The hepatic arteries are patent with normal flow velocities, resistive indices, and waveforms. The hepatic veins and confluence are patent. The main portal vein measures 0.8 cm in diameter. The hepatic arterial resistive indices range from 0.5-0.6 with a proper hepatic arterial acceleration time of 0.05 seconds. BILIARY:Gallbladder: Prior cholecystectomyCommon bile duct measures 0.4 cm, within normal limits. No intrahepatic biliary ductal dilatation. Pneumobilia. PANCREAS: Incompletely visualized due to overlying bowelgas. SPLEEN: No splenomegaly. The spleen measures 11.4 cm in length. PERITONEUM: Moderate to large volume ascites. KIDNEYS: Normal in size bilaterally. Increased renal cortical echogenicity. No hydronephrosis. No sonographically evident solid mass lesion. MIDLINE VASCULATURE: The visualized inferior vena cava is patent. The maximum visualized aortic diameter is 2.6 cm. Splenic artery and vein are patent. BLADDER: Not well visualized and likely decompressed. IMPRESSION: 1.No TIPS was seen on this study. Additionally, no tips was seen on the chest radiograph from 01/29/2019. 2.Findings of chronic medical renal disease. 3.The pneumobilia is likely due to a prior intervention. 4.The mildly decreased proper hepatic arterial resistive index may be due to shunting. 5.Cirrhosis with moderate to large volume ascites. Signed: Ney López MDReport Verified Date/Time: 2018 08:48:41 Reading Location: [address] Radiology Reading Room 08:48 AMU/S, DUPLEX, [id number] 08:48:00Reason for exam:->Hx of cirrhosis; ?hx of TIPS, rule out PVTFINAL REPORT TECHNIQUE: Grayscale ultrasound of the abdomen with color Doppler and spectral Doppler ultrasound of the portal/ hepatic vasculature. INDICATION: Hx of cirrhosis; ?hxof TIPS, rule out PVT. COMPARISON: Chest radiograph from 01/29/2019. FINDINGS: LIVER: Nodular livercontour. No focal liver lesions. HEPATIC VASCULATURE: Portal veins are patent with normal waveform and directionality. Flow velocity in the main portal vein is within normal limits. The hepatic arteries are patent with normal flow velocities, resistive indices, and waveforms. The hepatic veins and confluence are patent. The main portal vein measures 0.8 cm in diameter. The hepatic arterial resistive indices range from 0.5-0.6 with a proper hepatic arterial acceleration time of 0.05 seconds. BILIARY:Gallbladder: Prior cholecystectomyCommon bile duct measures 0.4 cm, within normal limits. No intrahepatic biliary ductal dilatation. Pneumobilia. PANCREAS: Incompletely visualized due to overlying bowelgas. SPLEEN: No splenomegaly. The spleen measures 11.4 cm in length. PERITONEUM: Moderate to large volume ascites. KIDNEYS: Normal in size bilaterally. Increased renal cortical echogenicity. No hydronephrosis. No sonographically evident solid mass lesion. MIDLINE VASCULATURE: The visualized inferior vena cava is patent. The maximum visualized aortic diameter is 2.6 cm. Splenic artery and vein are patent. BLADDER: Not well visualized and likely decompressed. IMPRESSION: 1.No TIPS was seen on this study. Additionally, no tips was seen on the chest radiograph from 01/29/2019. 2.Findings of chronic medical renal disease. 3.The pneumobilia is likely due to a prior intervention. 4.The mildly decreased proper hepatic arterial resistive index may be due to shunting. 5.Cirrhosis with moderate to large volume ascites. Signed: Ney López MDReport Verified Date/Time: 2018 08:48:41 Reading Location: [address] Radiology Reading Room 08:48 AMU/S, PELVIC, [id number] 08:48:00Reason for exam:->HAZEL Should this be performed at the bedside?->YesFINAL REPORT TECHNIQUE: Grayscale ultrasound of the abdomen with color Doppler and spectral Doppler ultrasound of the portal/hepatic vasculature. INDICATION: Hx of cirrhosis; ?hxof TIPS, rule out PVT. COMPARISON: Chest radiograph from 01/29/2019. FINDINGS: LIVER: Nodular livercontour. No focal liver lesions. HEPATIC VASCULATURE: Portal veins are patent with normal waveform and directionality. Flow velocity in the main portal vein is within normal limits. The hepatic arteries are patent with normal flow velocities, resistive indices, and waveforms. The hepatic veins and confluence are patent. The main portal vein measures 0.8 cm in diameter. The hepatic arterial resistive indices range from 0.5-0.6 with a proper hepatic arterial acceleration time of 0.05 seconds. BILIARY:Gallbladder: Prior cholecystectomyCommon bile duct measures 0.4 cm, within normal limits. No intrahepatic biliary ductal dilatation. Pneumobilia. PANCREAS: Incompletely visualized due to overlying bowelgas. SPLEEN: No splenomegaly. The spleen measures 11.4 cm in length. PERITONEUM: Moderate to large volume ascites. KIDNEYS: Normal in size bilaterally. Increased renal cortical echogenicity. No hydronephrosis. No sonographically evident solid mass lesion. MIDLINE VASCULATURE: The visualized inferior vena cava is patent. The maximum visualized aortic diameter is 2.6 cm. Splenic artery and vein are patent. BLADDER: Not well visualized and likely decompressed. IMPRESSION: 1.No TIPS was seen on this study. Additionally, no tips was seen on the chest radiograph from 01/29/2019. 2.Findings of chronic medical renal disease. 3.The pneumobilia is likely due to a prior intervention. 4.The mildly decreased proper hepatic arterial resistive index may be due to shunting. 5.Cirrhosis with moderate to large volume ascites. Signed: Ney Lópezeport Verified Date/Time: 2018 08:48:41 Reading Location: [address] Radiology Reading Room 08:48 AMPOCT-GLUCOSE [id number] 08:19:00 Test Item Value Reference Range Comments POC-GLUCOSE METER (BEAKER) 219 mg/dL 70-110 : TESTED AT [facility] [address] [place] [address] (test eykn=8299) [facility], [place], [address]: Motorboat [employer]ic Inboard/Outboard/Early [employer] Teacher IT=[id number] for GENE MENDENHALL CALCIUM, [id number] 05:46:00 Test Item Value Reference Range Comments CALCIUM IONIZED (BEAKER) (test vtdo=918) 1.15 mmol/L 1.12-1.27 PH, BLOOD (BEAKER) (test skks=4620) 7.46 B-TYPE NATRIURETIC FACTOR (BNP)2019-01-30 05:38:00 Test Item Value Reference Range Comments B-TYPE NATRIURETIC PEPTIDE (BEAKER) (test 364 pg/mL 0-100 iowc=916) [id number] 05:37:00 Test Item Value Reference Range Comments PHOSPHORUS (BEAKER) (test aiex=329) 2.7 mg/dL 2.3-4.7 [id number] 05:37:00 Test Item Value Reference Range Comments MAGNESIUM (BEAKER) (test nuok=238) 2.5 mg/dL 1.6-2.6 HEPATIC FUNCTION [id number] 05:37:00 Test Item Value Reference Range Comments TOTAL PROTEIN (BEAKER) (test rlcu=222) 5.7 gm/dL 6.0-8.3 ALBUMIN (BEAKER) (test rkti=1534) 2.3 g/dL 3.5-5.0 BILIRUBIN TOTAL (BEAKER) (test kphv=774) 0.6 mg/dL 0.2-1.2 BILIRUBIN DIRECT (BEAKER) (test ovxo=074) 0.4 mg/dL 0.1-0.5 ALKALINE PHOSPHATASE (BEAKER) (test rykh=368) 259 U/L 40-150 AST (SGOT) (BEAKER) (test fkhg=587) 51 U/L 5-34 ALT (SGPT) (BEAKER) (test epjo=821) 41 U/L 6-55 COMPREHENSIVE METABOLIC [id number] 05:37:00 Test Item Value Reference Range Comments TOTAL PROTEIN (BEAKER) 5.7 gm/dL 6.0-8.3 (test dymh=962) ALBUMIN (BEAKER) (test 2.3 g/dL 3.5-5.0 iqnj=5768) ALKALINE PHOSPHATASE 259 U/L 40-150 (BEAKER) (test lbbc=305) BILIRUBIN TOTAL (BEAKER) 0.6 mg/dL 0.2-1.2 (test ttns=369) SODIUM (BEAKER) (test 135 meq/L 136-145 vxsz=039) POTASSIUM (BEAKER) (test 4.0 meq/L 3.5-5.1 aizz=115) CHLORIDE (BEAKER) (test 106 meq/L 98-107 vkwn=112) CO2 (BEAKER) (test 21 meq/L 22-29 dumq=300) BLOOD UREA NITROGEN 61 mg/dL 7-21 (BEAKER) (test ufji=962) CREATININE (BEAKER) (test 1.79 mg/dL 0.57-1.25 czvu=998) GLUCOSE RANDOM (BEAKER) 269 mg/dL 70-105 (test oazw=910) CALCIUM (BEAKER) (test 9.2 mg/dL 8.4-10.2 wcsl=420) AST (SGOT) (BEAKER) (test 51 U/L 5-34 kpqz=054) ALT (SGPT) (BEAKER) (test 41 U/L 6-55 miqi=711) EGFR (BEAKER) (test 37 mL/min/1.73 sq m ESTIMATED GFR IS NOT ohrp=8648) ACCURATE CREATININE CLEARANCE IN PREDICTING GLOMERULAR FILTRATION RATE. ESTIMATED GFR IS NOT APPLICABLE FOR DIALYSIS PATIENTS. PROTHROMBIN [id number] 05:20:00 Test Item Value Reference Range Comments PROTIME (BEAKER) (test mrua=393) 16.6 seconds 11.9-14.2 INR (BEAKER) (test xixt=454) 1.4 <=5.9 Effective 07/17/2018: PT Reference Range ChangeNew: 11.9-14.2 Previous: 11.7- 14.7RECOMMENDED COUMADIN/WARFARIN INR THERAPY RANGESSTANDARD DOSE: 2.0-3.0 Includes: PROPHYLAXIS for venous thrombosis, systemic embolization; TREATMENT for venous thrombosis and/or pulmonary embolus.HIGH RISK: Target INR is2.5-3.5 for patients wiht mechanical heart valves.PT/[id number] 05:20:00 Test Item Value Reference Range Comments PROTIME (BEAKER) (test dwkr=199) 16.6 seconds 11.9-14.2 INR (BEAKER) (test hwzi=775) 1.4 <=5.9 PARTIAL THROMBOPLASTIN TIME (BEAKER) (test 39.4 seconds 22.5-36.0 thny=474) Effective 07/17/2018: PT Reference Range ChangeNew: 11.9-14.2 Previous: 11.7- 14.7RECOMMENDED COUMADIN/WARFARIN INR THERAPY RANGESSTANDARD DOSE: 2.0-3.0 Includes: PROPHYLAXIS for venous thrombosis, systemic embolization; TREATMENT for venous thrombosis and/or pulmonary embolus.HIGH RISK: Target INR is2.5-3.5 for patients wiht mechanical heart valves.CBC W/PLT COUNT & AUTO [id number] 05:14:00 Test Item Value Reference Range Comments WHITE BLOOD CELL COUNT (BEAKER) (test urum=239) 8.6 K/ L 3.5-10.5 RED BLOOD CELL COUNT (BEAKER) (test ilrm=706) 4.09 M/ L 4.63-6.08 HEMOGLOBIN (BEAKER) (test avyj=740) 11.7 GM/DL 13.7-17.5 HEMATOCRIT (BEAKER) (test eiji=203) 35.8 % 40.1-51.0 MEAN CORPUSCULAR VOLUME (BEAKER) (test dpji=547) 87.5 fL 79.0-92.2 MEAN CORPUSCULAR HEMOGLOBIN (BEAKER) (test 28.6 pg 25.7-32.2 suob=951) MEAN CORPUSCULAR HEMOGLOBIN CONC (BEAKER) (test 32.7 GM/DL 32.3-36.5 figs=588) RED CELL DISTRIBUTION WIDTH (BEAKER) (test 19.7 % 11.6-14.4 tvbk=057) PLATELET COUNT (BEAKER) (test mcer=590) 204 K/CU MM 150-450 MEAN PLATELET VOLUME (BEAKER) (test suih=552) 11.6 fL 9.4-12.4 NUCLEATED RED BLOOD CELLS (BEAKER) (test 0 /100 WBC 0-0 kpbf=912) NEUTROPHILS RELATIVE PERCENT (BEAKER) (test 65 % fzsl=290) LYMPHOCYTES RELATIVE PERCENT (BEAKER) (test 21 % utyw=466) MONOCYTES RELATIVE PERCENT (BEAKER) (test 12 % ugrh=069) EOSINOPHILS RELATIVE PERCENT (BEAKER) (test 1 % kdsx=954) BASOPHILS RELATIVE PERCENT (BEAKER) (test 1 % erac=747) NEUTROPHILS ABSOLUTE COUNT (BEAKER) (test 5.60 K/ L 1.78-5.38 vnuw=272) LYMPHOCYTES ABSOLUTE COUNT (BEAKER) (test 1.78 K/ L 1.32-3.57 psbj=993) MONOCYTES ABSOLUTE COUNT (BEAKER) (test 1.06 K/ L 0.30-0.82 gzso=437) EOSINOPHILS ABSOLUTE COUNT (BEAKER) (test 0.12 K/ L 0.04-0.54 szkw=889) BASOPHILS ABSOLUTE COUNT (BEAKER) (test 0.05 K/ L 0.01-0.08 xseh=403) IMMATURE GRANULOCYTES-RELATIVE PERCENT (BEAKER) 0 % 0-1 (test vkhl=7428) POCT-GLUCOSE [id number] 00:27:00 Test Item Value Reference Range Comments POC-GLUCOSE METER (BEAKER) 227 mg/dL 70-110 : TESTED AT [facility] [address] [facility] (test hqaj=9103) [facility], [place], [address]: Motorboat Mechanic Inboard/Outboard/Early Head Start Teacher [id number] for JOHNIE MCKEON OSMOLALITY, [id number] 20:38:00 Test Item Value Reference Range Comments OSMOLALITY URINE (BEAKER) (test otlo=159) 490 mOsm/kg 40-1,400 URINALYSIS W/ [id number] 20:27:00 Test Item Value Reference Range Comments COLOR (BEAKER) (test dnma=374) [place] CLARITY (BEAKER) (test mbdo=267) Hazy SPECIFIC GRAVITY UA (BEAKER) (test pgqn=151) 1.022 1.001-1.035 PH UA (BEAKER) (test cbhs=315) 5.5 5.0-8.0 PROTEIN UA (BEAKER) (test iitw=192) 30 mg/dL Negative GLUCOSE UA (BEAKER) (test staw=340) Negative Negative KETONES UA (BEAKER) (test sbgf=926) Trace Negative BILIRUBIN UA (BEAKER) (test ewxp=851) Negative Negative BLOOD UA (BEAKER) (test pnnk=240) Moderate Negative NITRITE UA (BEAKER) (test japm=170) Negative Negative LEUKOCYTE ESTERASE UA (BEAKER) (test ccrr=213) Negative Negative UROBILINOGEN UA (BEAKER) (test jcfq=210) 0.2 mg/dL 0.2-1.0 RBC UA (BEAKER) (test ispu=444) 170 /HPF WBC UA (BEAKER) (test kuaf=950) 8 /HPF HYALINE CASTS (BEAKER) (test gzyr=218) 5 /LPF SOURCE(BEAKER) (test htls=3392) SODIUM, RANDOM [id number] 20:25:00 Test Item Value Reference Range Comments SODIUM URINE (BEAKER) (test iwns=364) < meq/L Reference Range: No NormalsCREATININE, RANDOM [id number] 20:16:00 Test Item Value Reference Range Comments CREATININE URINE (BEAKER) (test sljo=968) 124.3 mg/dL Reference Range: No NormalsPROTEIN, RANDOM [id number] 20:16:00 Test Item Value Reference Range Comments PROTEIN, URINE (BEAKER) (test fpzo=0786) 37 mg/dL 0-14 POCT-GLUCOSE [id number] 18:07:00 Test Item Value Reference Range Comments POC-GLUCOSE METER (BEAKER) 240 mg/dL 70-110 : TESTED AT [address] (test xaby=4520) [facility], [place], [address]: Motorboat Mechanic Inboard/Outboard/Early Head Start Teacher [id number] for FILIBERTO AVENDAÑO COMPREHENSIVE METABOLIC [id number] 17:39:00 Test Item Value Reference Range Comments TOTAL PROTEIN (BEAKER) 5.7 gm/dL 6.0-8.3 (test ybvp=350) ALBUMIN (BEAKER) (test 2.2 g/dL 3.5-5.0 vskz=0871) ALKALINE PHOSPHATASE 237 U/L 40-150 (BEAKER) (test pzxp=537) BILIRUBIN TOTAL (BEAKER) 0.6 mg/dL 0.2-1.2 (test wjxy=318) SODIUM (BEAKER) (test 136 meq/L 136-145 anfi=320) POTASSIUM (BEAKER) (test 4.1 meq/L 3.5-5.1 ikwj=408) CHLORIDE (BEAKER) (test 106 meq/L 98-107 ygex=347) CO2 (BEAKER) (test 23 meq/L 22-29 xzgn=627) BLOOD UREA NITROGEN 64 mg/dL 7-21 (BEAKER) (test nbui=473) CREATININE (BEAKER) (test 1.66 mg/dL 0.57-1.25 usrs=597) GLUCOSE RANDOM (BEAKER) 231 mg/dL 70-105 (test odpk=794) CALCIUM (BEAKER) (test 9.4 mg/dL 8.4-10.2 zqgr=834) AST (SGOT) (BEAKER) (test 51 U/L 5-34 xyye=784) ALT (SGPT) (BEAKER) (test 40 U/L 6-55 hgwv=938) EGFR (BEAKER) (test 40 mL/min/1.73 sq m ESTIMATED GFR IS NOT vhxs=2379) ACCURATE CREATININE CLEARANCE IN PREDICTING GLOMERULAR FILTRATION RATE. ESTIMATED GFR IS NOT APPLICABLE FOR DIALYSIS PATIENTS. CBC W/PLT COUNT & AUTO [id number] 17:15:00 Test Item Value Reference Range Comments WHITE BLOOD CELL COUNT (BEAKER) (test knbq=157) 8.1 K/ L 3.5-10.5 RED BLOOD CELL COUNT (BEAKER) (test zecp=244) 4.10 M/ L 4.63-6.08 HEMOGLOBIN (BEAKER) (test mlhb=083) 11.8 GM/DL 13.7-17.5 HEMATOCRIT (BEAKER) (test xxiy=321) 35.7 % 40.1-51.0 MEAN CORPUSCULAR VOLUME (BEAKER) (test zbdk=978) 87.1 fL 79.0-92.2 MEAN CORPUSCULAR HEMOGLOBIN (BEAKER) (test 28.8 pg 25.7-32.2 hktm=714) MEAN CORPUSCULAR HEMOGLOBIN CONC (BEAKER) (test 33.1 GM/DL 32.3-36.5 afyc=546) RED CELL DISTRIBUTION WIDTH (BEAKER) (test 19.6 % 11.6-14.4 xpkv=032) PLATELET COUNT (BEAKER) (test dwxt=783) 200 K/CU MM 150-450 MEAN PLATELET VOLUME (BEAKER) (test yptq=334) 11.7 fL 9.4-12.4 NUCLEATED RED BLOOD CELLS (BEAKER) (test 0 /100 WBC 0-0 ujjr=649) NEUTROPHILS RELATIVE PERCENT (BEAKER) (test 62 % jzlw=692) LYMPHOCYTES RELATIVE PERCENT (BEAKER) (test 24 % urix=125) MONOCYTES RELATIVE PERCENT (BEAKER) (test 12 % muws=538) EOSINOPHILS RELATIVE PERCENT (BEAKER) (test 1 % barf=768) BASOPHILS RELATIVE PERCENT (BEAKER) (test 1 % uihz=767) NEUTROPHILS ABSOLUTE COUNT (BEAKER) (test 5.08 K/ L 1.78-5.38 vbzq=915) LYMPHOCYTES ABSOLUTE COUNT (BEAKER) (test 1.94 K/ L 1.32-3.57 okso=983) MONOCYTES ABSOLUTE COUNT (BEAKER) (test 0.99 K/ L 0.30-0.82 qoph=082) EOSINOPHILS ABSOLUTE COUNT (BEAKER) (test 0.05 K/ L 0.04-0.54 dvoy=670) BASOPHILS ABSOLUTE COUNT (BEAKER) (test 0.05 K/ L 0.01-0.08 jjsy=823) IMMATURE GRANULOCYTES-RELATIVE PERCENT (BEAKER) 0 % 0-1 (test kncc=7898) RAD, CHEST, 1 VIEW, NON [id number] 14:13:00Reason for exam:->shortness of breathShould this be performed at the bedside?->YesFINAL REPORT INDICATION: shortness of breath COMPARISON: November 18, 2018 TECHNIQUE: Single frontal view of the chest. FINDINGS: Lungs and pleura: Clear lungs. No effusion.Heart and mediastinum: Normal heart size. Unremarkable mediastinal contours. A density which project overthe left ventricle is of uncertain etiology and was not seen on prior exam November 18, 2018. If this is not external to the patient, recommend two-view chest x-ray for further evaluation.Osseous structures: No acute abnormality.Other: None. IMPRESSION: A density which project over the left ventricle is of uncertain etiology and was not seen on prior exam November 18, 2018. If this is not externalto the patient , recommend two-view chest x-ray for further evaluation. Signed: Familia Fuchs MDReport Verified Date/Time: 01/29/2019 14:13:42 Reading Location: [facility] Reading Room POCT-GLUCOSE [id number] 12:21:00 Test Item Value Reference Range Comments POC-GLUCOSE METER (BEAKER) 142 mg/dL 70-110 : TESTED AT [address] (test qpxg=5563) [facility], [place], [address]: Motorboat Mechanic Inboard/Outboard/Early Head Start Teacher [id number] for FILIBERTO AVENDAÑO POCT-GLUCOSE [id number] 08:42:00 Test Item Value Reference Range Comments POC-GLUCOSE METER (BEAKER) 71 mg/dL 70-110 : TESTED AT [address] (test wpvq=8928) [facility], [place], [address]: Motorboat Mechanic Inboard/Outboard/Early Head Start Teacher [id number] for GENE MENDENHALL HEMOGLOBIN [id number] 08:37:00 Test Item Value Reference Range Comments HEMOGLOBIN A1C (BEAKER) (test ffez=948) 9.2 % 4.3-6.1 POCT-GLUCOSE [id number] 07:00:00 Test Item Value Reference Range Comments POC-GLUCOSE METER (BEAKER) 88 mg/dL 70-110 : TESTED AT [address] (test xpen=7474) [facility], [place], [address]: Motorboat Mechanic Inboard/Outboard/Early Head Start Teacher [id number] for BREANNE SHRESTHA POCT-GLUCOSE [id number] 05:38:00 Test Item Value Reference Range Comments POC-GLUCOSE METER (BEAKER) 104 mg/dL 70-110 : TESTED AT [address] (test kyqq=7773) [facility], [place], [address]: Motorboat Mechanic Inboard/Outboard/Early Head Start Teacher [id number] for BREANNE SHRESTHA [id number] 04:43:00 Test Item Value Reference Range Comments PROSTATE SPECIFIC ANTIGEN (BEAKER) (test wnbe=927) 1.7 ng/mL 0.0-4.0 [id number] 04:27:00 Test Item Value Reference Range Comments PREALBUMIN (BEAKER) (test qflw=917) 10 mg/dL 14-45 [id number] 04:25:00 Test Item Value Reference Range Comments MAGNESIUM (BEAKER) (test 2.7 mg/dL 1.6-2.6 Specimen slightly hemolyzed kqua=394) [id number] 04:25:00 Test Item Value Reference Range Comments PHOSPHORUS (BEAKER) (test 3.3 mg/dL 2.3-4.7 Specimen slightly hemolyzed khuh=480) BASIC METABOLIC [id number] 04:25:00 Test Item Value Reference Range Comments SODIUM (BEAKER) (test 135 meq/L 136-145 rnpu=035) POTASSIUM (BEAKER) (test 4.0 meq/L 3.5-5.1 Specimen slightly slcw=639) hemolyzed CHLORIDE (BEAKER) (test 106 meq/L 98-107 nbfv=582) CO2 (BEAKER) (test 21 meq/L 22-29 tyhl=874) BLOOD UREA NITROGEN 64 mg/dL 7-21 (BEAKER) (test clwt=527) CREATININE (BEAKER) (test 1.76 mg/dL 0.57-1.25 Specimen slightly wtng=308) hemolyzed GLUCOSE RANDOM (BEAKER) 56 mg/dL 70-105 (test htqw=565) CALCIUM (BEAKER) (test 9.6 mg/dL 8.4-10.2 elmm=232) EGFR (BEAKER) (test 37 mL/min/1.73 sq m ESTIMATED GFR IS NOT msrb=5693) ACCURATE CREATININE CLEARANCE IN PREDICTING GLOMERULAR FILTRATION RATE. ESTIMATED GFR IS NOT APPLICABLE FOR DIALYSIS PATIENTS. HEPATIC FUNCTION [id number] 04:25:00 Test Item Value Reference Range Comments TOTAL PROTEIN (BEAKER) (test 6.1 gm/dL 6.0-8.3 Specimen slightly hemolyzed hary=195) ALBUMIN (BEAKER) (test 2.3 g/dL 3.5-5.0 Specimen slightly hemolyzed ecob=1900) BILIRUBIN TOTAL (BEAKER) (test 0.7 mg/dL 0.2-1.2 Specimen slightly hemolyzed erxd=947) BILIRUBIN DIRECT (BEAKER) (test 0.4 mg/dL 0.1-0.5 Specimen slightly hemolyzed hlll=557) ALKALINE PHOSPHATASE (BEAKER) 213 U/L 40-150 (test myeb=900) AST (SGOT) (BEAKER) (test 40 U/L 5-34 Specimen slightly hemolyzed bkmc=731) ALT (SGPT) (BEAKER) (test 31 U/L 6-55 Specimen slightly hemolyzed igfl=892) PT/[id number] 04:15:00 Test Item Value Reference Range Comments PROTIME (BEAKER) (test mivu=066) 16.2 seconds 11.9-14.2 INR (BEAKER) (test bmgl=159) 1.4 <=5.9 PARTIAL THROMBOPLASTIN TIME (BEAKER) (test 33.9 seconds 22.5-36.0 urmw=648) Effective 07/17/2018: PT Reference Range ChangeNew: 11.9-14.2 Previous: 11.7- 14.7RECOMMENDED COUMADIN/WARFARIN INR THERAPY RANGESSTANDARD DOSE: 2.0-3.0 Includes: PROPHYLAXIS for venous thrombosis, systemic embolization; TREATMENT for venous thrombosis and/or pulmonary embolus.HIGH RISK: Target INR is2.5-3.5 for patients wiht mechanical heart valves.PROTHROMBIN [id number] 04:14: 00 Test Item Value Reference Range Comments PROTIME (BEAKER) (test tqdy=719) 16.2 seconds 11.9-14.2 INR (BEAKER) (test ujhx=127) 1.4 <=5.9 Effective 07/17/2018: PT Reference Range ChangeNew: 11.9-14.2 Previous: 11.7- 14.7RECOMMENDED COUMADIN/WARFARIN INR THERAPY RANGESSTANDARD DOSE: 2.0-3.0 Includes: PROPHYLAXIS for venous thrombosis, systemic embolization; TREATMENT for venous thrombosis and/or pulmonary embolus.HIGH RISK: Target INR is2.5-3.5 for patients wiht mechanical heart valves.[id number] 04:12:00 Test Item Value Reference Range Comments AMMONIA (BEAKER) (test ptoc=750) 44 mol/L 18-72 ALPHA FETOPROTEIN (AFP), TUMOR [id number] 18:53:00 Test Item Value Reference Range Comments ALPHA-FETOPROTEIN (BEAKER) (test trbb=2317) < ng/mL <10.0 HEPATIC FUNCTION [id number] 18:34:00 Test Item Value Reference Range Comments TOTAL PROTEIN (BEAKER) (test luxb=676) 6.3 gm/dL 6.0-8.3 ALBUMIN (BEAKER) (test kahv=9546) 3.2 g/dL 3.5-5.0 BILIRUBIN TOTAL (BEAKER) (test gyfi=633) 0.7 mg/dL 0.2-1.2 BILIRUBIN DIRECT (BEAKER) (test jakn=119) 0.4 mg/dL 0.1-0.5 ALKALINE PHOSPHATASE (BEAKER) (test twuu=169) 146 U/L 40-150 AST (SGOT) (BEAKER) (test nhok=595) 29 U/L 5-34 ALT (SGPT) (BEAKER) (test hrxo=287) 23 U/L 6-55 BASIC METABOLIC [id number] 18:34:00 Test Item Value Reference Range Comments SODIUM (BEAKER) (test 136 meq/L 136-145 azko=380) POTASSIUM (BEAKER) (test 3.4 meq/L 3.5-5.1 rand=723) CHLORIDE (BEAKER) (test 101 meq/L 98-107 gfns=122) CO2 (BEAKER) (test 27 meq/L 22-29 fkdh=971) BLOOD UREA NITROGEN 20 mg/dL 7-21 (BEAKER) (test wvbq=385) CREATININE (BEAKER) (test 1.06 mg/dL 0.57-1.25 apie=116) GLUCOSE RANDOM (BEAKER) 246 mg/dL 70-105 (test yral=606) CALCIUM (BEAKER) (test 9.1 mg/dL 8.4-10.2 kkrv=250) EGFR (BEAKER) (test 67 mL/min/1.73 sq m ESTIMATED GFR IS NOT fgfv=1804) ACCURATE CREATININE CLEARANCE IN PREDICTING GLOMERULAR FILTRATION RATE. ESTIMATED GFR IS NOT APPLICABLE FOR DIALYSIS PATIENTS. PROTHROMBIN [id number] 17:50:00 Test Item Value Reference Range Comments PROTIME (BEAKER) (test mzif=989) 15.4 seconds 11.9-14.2 INR (BEAKER) (test ujfz=529) 1.3 <=5.9 Effective 07/17/2018: PT Reference Range ChangeNew: 11.9-14.2 Previous: 11.7- 14.7RECOMMENDED COUMADIN/WARFARIN INR THERAPY RANGESSTANDARD DOSE: 2.0-3.0 Includes: PROPHYLAXIS for venous thrombosis, systemic embolization; TREATMENT for venous thrombosis and/or pulmonary embolus.HIGH RISK: Target INR is2.5-3.5 for patients wiht mechanical heart valves.CBC W/PLT COUNT & AUTO [id number] 17:39:00 Test Item Value Reference Range Comments WHITE BLOOD CELL COUNT (BEAKER) (test unvt=954) 7.8 K/ L 3.5-10.5 RED BLOOD CELL COUNT (BEAKER) (test mtys=484) 4.12 M/ L 4.63-6.08 HEMOGLOBIN (BEAKER) (test ieqj=295) 11.5 GM/DL 13.7-17.5 HEMATOCRIT (BEAKER) (test kixq=700) 36.5 % 40.1-51.0 MEAN CORPUSCULAR VOLUME (BEAKER) (test qdaw=718) 88.6 fL 79.0-92.2 MEAN CORPUSCULAR HEMOGLOBIN (BEAKER) (test 27.9 pg 25.7-32.2 ovqm=691) MEAN CORPUSCULAR HEMOGLOBIN CONC (BEAKER) (test 31.5 GM/DL 32.3-36.5 ncpn=343) RED CELL DISTRIBUTION WIDTH (BEAKER) (test 20.7 % 11.6-14.4 jvxi=398) PLATELET COUNT (BEAKER) (test tuka=289) 238 K/CU MM 150-450 MEAN PLATELET VOLUME (BEAKER) (test pvup=275) 11.2 fL 9.4-12.4 NUCLEATED RED BLOOD CELLS (BEAKER) (test 0 /100 WBC 0-0 smic=298) NEUTROPHILS RELATIVE PERCENT (BEAKER) (test 60 % moiv=920) LYMPHOCYTES RELATIVE PERCENT (BEAKER) (test 25 % rvup=060) MONOCYTES RELATIVE PERCENT (BEAKER) (test 12 % jfwb=013) EOSINOPHILS RELATIVE PERCENT (BEAKER) (test 2 % ibqu=435) BASOPHILS RELATIVE PERCENT (BEAKER) (test 1 % bfgf=727) NEUTROPHILS ABSOLUTE COUNT (BEAKER) (test 4.68 K/ L 1.78-5.38 olgw=843) LYMPHOCYTES ABSOLUTE COUNT (BEAKER) (test 1.98 K/ L 1.32-3.57 hckp=182) MONOCYTES ABSOLUTE COUNT (BEAKER) (test 0.93 K/ L 0.30-0.82 hhpx=109) EOSINOPHILS ABSOLUTE COUNT (BEAKER) (test 0.14 K/ L 0.04-0.54 oaln=152) BASOPHILS ABSOLUTE COUNT (BEAKER) (test 0.05 K/ L 0.01-0.08 aznl=201) IMMATURE GRANULOCYTES-RELATIVE PERCENT (BEAKER) 1 % 0-1 (test uzas=6455) BLOOD [id number] 08:00:00 Test Item Value Reference Range Comments CULTURE (BEAKER) (test wyzd=1634) No growth in 5 days BLOOD [id number] 08:00:00 Test Item Value Reference Range Comments CULTURE (BEAKER) (test otxw=0403) No growth in 5 days U/S, [id number] 17:55:00Labs to be ordered:->Other (please add comment)cell countReason for exam:->diagnostic and therapeutic para for cirrhotic ptaient coming in with abd pain and distension.FINAL REPORT Ultrasound guided paracentesis Clinical History: Ascites. Sedation : None. Associate Director Financial Aid: Jenniffer Duran PA-C Supervising Physician: Jose Alejandro Palmer MD [place]: None. Estimated Blood Loss: < 1 mL. [...] anesthesia was achieved with lidocaine, a 5 [place] one-step catheter was advanced into the peritoneal cavity under ultrasound guidance. After completion of drainage, the catheter was removed. There was no evidence of complication. Impression:Successful ultrasound guided paracentesis. Signed: Jose Alejandro Palmer Verified Date/ Time: 11/20/2018 17:55:49 Reading Location: [address] Ultrasound Reading Room POCT-GLUCOSE [id number] 13:27:00 Test Item Value Reference Range Comments POC-GLUCOSE METER (BEAKER) 250 mg/dL 70-110 TESTED AT [facility] [address] (test emsw=8989) [facility], [place] [address] STOOL CULTURE + SHIGA [id number] 12:42:00 Test Item Value Reference Range Comments CULTURE (BEAKER) (test No Salmonella, Shigella or vtdj=0194) Campylobacter isolated STOOL PATH [id number] 12:42:00 Test Item Value Reference Range Comments PATHOGEN EXAM CHARGED (BEAKER) (test vkzm=5313) Done U/S, ABDOMINAL, [id number] 09:32:00Reason for exam:->new dx cirrhosis. with doppler [...] likely related to prior procedure. Signed: Iliana Velez MDReport Verified Date/Time: 11/20/2018 09:32:31 Reading Location: [address] Radiology Reading Room POCT-GLUCOSE [id number] 08:21:00 Test Item Value Reference Range Comments POC-GLUCOSE METER (BEAKER) 156 mg/dL 70-110 TESTED AT [facility] [address] (test boij=3678) [facility] [place] [address] [id number] 04:25:00 Test Item Value Reference Range Comments PHOSPHORUS (BEAKER) (test mbre=391) 2.8 mg/dL 2.3-4.7 [id number] 04:25:00 Test Item Value Reference Range Comments MAGNESIUM (BEAKER) (test ejev=627) 1.8 mg/dL 1.6-2.6 BASIC METABOLIC [id number] 04:25:00 Test Item Value Reference Range Comments SODIUM (BEAKER) (test 134 meq/L 136-145 nblw=699) POTASSIUM (BEAKER) (test 3.3 meq/L 3.5-5.1 qqlt=294) CHLORIDE (BEAKER) (test 103 meq/L 98-107 rbfo=891) CO2 (BEAKER) (test 22 meq/L 22-29 xppp=255) BLOOD UREA NITROGEN 34 mg/dL 7-21 (BEAKER) (test fqns=314) CREATININE (BEAKER) (test 1.26 mg/dL 0.57-1.25 rsbd=108) GLUCOSE RANDOM (BEAKER) 174 mg/dL 70-105 (test wkiz=761) CALCIUM (BEAKER) (test 8.9 mg/dL 8.4-10.2 nghj=613) EGFR (BEAKER) (test 55 mL/min/1.73 sq m ESTIMATED GFR IS NOT xuhi=7761) ACCURATE CREATININE CLEARANCE IN PREDICTING GLOMERULAR FILTRATION RATE. ESTIMATED GFR IS NOT APPLICABLE FOR DIALYSIS PATIENTS. HEPATIC FUNCTION [id number] 04:25:00 Test Item Value Reference Range Comments TOTAL PROTEIN (BEAKER) (test zbdm=451) 5.8 gm/dL 6.0-8.3 ALBUMIN (BEAKER) (test aysa=7626) 2.6 g/dL 3.5-5.0 BILIRUBIN TOTAL (BEAKER) (test auud=059) 0.3 mg/dL 0.2-1.2 BILIRUBIN DIRECT (BEAKER) (test dypa=730) 0.2 mg/dL 0.1-0.5 ALKALINE PHOSPHATASE (BEAKER) (test drzg=866) 111 U/L 40-150 AST (SGOT) (BEAKER) (test wbwb=151) 18 U/L 5-34 ALT (SGPT) (BEAKER) (test jmuy=540) 10 U/L 6-55 PROTHROMBIN [id number] 03:40:00 Test Item Value Reference Range Comments PROTIME (BEAKER) (test dapy=447) 15.8 seconds 11.9-14.2 INR (BEAKER) (test migx=045) 1.3 <=5.9 Effective 07/17/2018: PT Reference Range ChangeNew: 11.9-14.2 Previous: 11.7- 14.7RECOMMENDED COUMADIN/WARFARIN INR THERAPY RANGESSTANDARD DOSE: 2.0-3.0 Includes: PROPHYLAXIS for venous thrombosis, systemic embolization; TREATMENT for venous thrombosis and/or pulmonary embolus.HIGH RISK: Target INR is2.5-3.5 for patients wiht mechanical heart valves.CBC W/PLT COUNT & AUTO [id number] 03:31:00 Test Item Value Reference Range Comments WHITE BLOOD CELL COUNT (BEAKER) (test ajgv=870) 6.2 K/ L 3.5-10.5 RED BLOOD CELL COUNT (BEAKER) (test ajiy=542) 3.73 M/ L 4.63-6.08 HEMOGLOBIN (BEAKER) (test tuqe=499) 10.3 GM/DL 13.7-17.5 HEMATOCRIT (BEAKER) (test jppz=769) 31.7 % 40.1-51.0 MEAN CORPUSCULAR VOLUME (BEAKER) (test ijvb=418) 85.0 fL 79.0-92.2 MEAN CORPUSCULAR HEMOGLOBIN (BEAKER) (test 27.6 pg 25.7-32.2 ekwn=828) MEAN CORPUSCULAR HEMOGLOBIN CONC (BEAKER) (test 32.5 GM/DL 32.3-36.5 ewpn=601) RED CELL DISTRIBUTION WIDTH (BEAKER) (test 17.7 % 11.6-14.4 almm=803) PLATELET COUNT (BEAKER) (test xytk=009) 221 K/CU MM 150-450 MEAN PLATELET VOLUME (BEAKER) (test wbdg=407) 10.9 fL 9.4-12.4 NUCLEATED RED BLOOD CELLS (BEAKER) (test 0 /100 WBC 0-0 pvfc=871) NEUTROPHILS RELATIVE PERCENT (BEAKER) (test 55 % jysa=087) LYMPHOCYTES RELATIVE PERCENT (BEAKER) (test 28 % dwoc=602) MONOCYTES RELATIVE PERCENT (BEAKER) (test 13 % qghc=224) EOSINOPHILS RELATIVE PERCENT (BEAKER) (test 3 % qqpf=890) BASOPHILS RELATIVE PERCENT (BEAKER) (test 1 % akqt=153) NEUTROPHILS ABSOLUTE COUNT (BEAKER) (test 3.41 K/ L 1.78-5.38 wdbx=140) LYMPHOCYTES ABSOLUTE COUNT (BEAKER) (test 1.70 K/ L 1.32-3.57 btiq=077) MONOCYTES ABSOLUTE COUNT (BEAKER) (test 0.79 K/ L 0.30-0.82 cyub=922) EOSINOPHILS ABSOLUTE COUNT (BEAKER) (test 0.20 K/ L 0.04-0.54 funt=173) BASOPHILS ABSOLUTE COUNT (BEAKER) (test 0.07 K/ L 0.01-0.08 tdhb=831) IMMATURE GRANULOCYTES-RELATIVE PERCENT (BEAKER) 0 % 0-1 (test nsfy=5373) POCT-GLUCOSE [id number] 20:31:00 Test Item Value Reference Range Comments POC-GLUCOSE METER (BEAKER) 193 mg/dL 70-110 TESTED AT [facility] [address] [facility] (test btxg=9298) [facility], [place] [address] BODY FLUID CELL COUNT WITH [id number] 17:35:00 Test Item Value Reference Range Comments APPEARANCE FLUID (BEAKER) (test onri=279) Clear Clear COLOR FLUID (BEAKER) (test kjtq=672) Straw Colorless, Straw RBC FLUID (BEAKER) (test wijg=623) 728 /cu mm <=1 ADJUSTED WBC FLUID (BEAKER) (test wwpq=7028) 85 /cu mm <=5 LINING CELLS (BEAKER) (test cmns=9294) 4 /cu mm <=1 NEUTROPHILS FLUID (BEAKER) (test jbqy=0656) 15 % LYMPHS FLUID (BEAKER) (test wuuj=531) 45 % MONO/MACROPHAGE FLUID (BEAKER) (test vmww=649) 40 % EOSINOPHILS FLUID (BEAKER) (test eymv=408) 0 % BASO FLUID (BEAKER) (test zebv=613) 0 % CONTAINER BODY FLUID (BEAKER) (test fots=6697) EDTA Tube POCT-GLUCOSE [id number] 16:48:00 Test Item Value Reference Range Comments POC-GLUCOSE METER (BEAKER) 104 mg/dL 70-110 TESTED AT [address] (test aasl=2550) [place] [facility] [place] [address] [id number] 14:29:00 Test Item Value Reference Range Comments FERRITIN (BEAKER) (test yvut=569) 119 ng/mL 5-275 SHIGA TOXIN [id number] 14:02:00 Test Item Value Reference Range Comments SHIGA TOXIN 1 (BEAKER) (test cmhh=8383) Not detected Not detected SHIGA TOXIN 2 (BEAKER) (test kowx=7454) Not detected Not detected IRON, TIBC, % SAT. (WITHOUT FERRITIN)2018-11-19 14:00:00 Test Item Value Reference Range Comments IRON (BEAKER) (test ckka=566) 47.0 ug/dL 40.0-160.0 TOTAL IRON BINDING CAPACITY (BEAKER) (test 231 ug/dL 250-450 ypif=487) IRON % SATURATION (2) (BEAKER) (test gsam=6191) 20 % 20-55 POCT-GLUCOSE [id number] 12:35:00 Test Item Value Reference Range Comments POC-GLUCOSE METER (BEAKER) 154 mg/dL 70-110 TESTED AT [address] (test vxop=7985) [place] [id number] POCT-GLUCOSE [id number] 12:35:00 Test Item Value Reference Range Comments POC-GLUCOSE METER (BEAKER) 186 mg/dL 70-110 TESTED AT [address] (test ingm=5327) [place] [id number] ANTI-NUCLEAR ANTIBODY (RANJANA)2018-11-19 10:03:00 Test Item Value Reference Range Comments ANTI-NUCLEAR ANTIBODY (RANJANA) (BEAKER) (test Negative Negative wgmr=750) Test performed by IFA method.Test performed by IFA method.[id number] 05:56:00 Test Item Value Reference Range Comments PHOSPHORUS (BEAKER) (test mfgl=565) 3.3 mg/dL 2.3-4.7 [id number] 05:56:00 Test Item Value Reference Range Comments MAGNESIUM (BEAKER) (test rooy=622) 1.8 mg/dL 1.6-2.6 BASIC METABOLIC [id number] 05:56:00 Test Item Value Reference Range Comments SODIUM (BEAKER) (test 133 meq/L 136-145 yyhl=173) POTASSIUM (BEAKER) (test 3.6 meq/L 3.5-5.1 spld=271) CHLORIDE (BEAKER) (test 101 meq/L 98-107 zfqj=818) CO2 (BEAKER) (test 22 meq/L 22-29 xxmm=281) BLOOD UREA NITROGEN 39 mg/dL 7-21 (BEAKER) (test kmqp=950) CREATININE (BEAKER) (test 1.59 mg/dL 0.57-1.25 tigi=128) GLUCOSE RANDOM (BEAKER) 190 mg/dL 70-105 (test rkfq=345) CALCIUM (BEAKER) (test 9.0 mg/dL 8.4-10.2 rnye=642) EGFR (BEAKER) (test 42 mL/min/1.73 sq m ESTIMATED GFR IS NOT fsbc=6946) ACCURATE CREATININE CLEARANCE IN PREDICTING GLOMERULAR FILTRATION RATE. ESTIMATED GFR IS NOT APPLICABLE FOR DIALYSIS PATIENTS. HEPATIC FUNCTION [id number] 05:56:00 Test Item Value Reference Range Comments TOTAL PROTEIN (BEAKER) (test trsx=145) 6.1 gm/dL 6.0-8.3 ALBUMIN (BEAKER) (test utjq=9216) 2.8 g/dL 3.5-5.0 BILIRUBIN TOTAL (BEAKER) (test ynqy=002) 0.3 mg/dL 0.2-1.2 BILIRUBIN DIRECT (BEAKER) (test uuky=643) 0.2 mg/dL 0.1-0.5 ALKALINE PHOSPHATASE (BEAKER) (test wamn=245) 117 U/L 40-150 AST (SGOT) (BEAKER) (test tedk=854) 15 U/L 5-34 ALT (SGPT) (BEAKER) (test zlzx=668) 10 U/L 6-55 PROTHROMBIN [id number] 05:09:00 Test Item Value Reference Range Comments PROTIME (BEAKER) (test fgec=519) 15.2 seconds 11.9-14.2 INR (BEAKER) (test wyez=339) 1.3 <=5.9 Effective 07/17/2018: PT Reference Range ChangeNew: 11.9-14.2 Previous: 11.7- 14.7RECOMMENDED COUMADIN/WARFARIN INR THERAPY RANGESSTANDARD DOSE: 2.0-3.0 Includes: PROPHYLAXIS for venous thrombosis, systemic embolization; TREATMENT for venous thrombosis and/or pulmonary embolus.HIGH RISK: Target INR is2.5-3.5 for patients wiht mechanical heart valves.CBC W/PLT COUNT & AUTO [id number] 05:02:00 Test Item Value Reference Range Comments WHITE BLOOD CELL COUNT (BEAKER) (test qjso=029) 8.7 K/ L 3.5-10.5 RED BLOOD CELL COUNT (BEAKER) (test umhw=580) 3.86 M/ L 4.63-6.08 HEMOGLOBIN (BEAKER) (test qqdd=872) 10.4 GM/DL 13.7-17.5 HEMATOCRIT (BEAKER) (test gepg=005) 32.7 % 40.1-51.0 MEAN CORPUSCULAR VOLUME (BEAKER) (test ghtn=885) 84.7 fL 79.0-92.2 MEAN CORPUSCULAR HEMOGLOBIN (BEAKER) (test 26.9 pg 25.7-32.2 uhfp=241) MEAN CORPUSCULAR HEMOGLOBIN CONC (BEAKER) (test 31.8 GM/DL 32.3-36.5 rthc=020) RED CELL DISTRIBUTION WIDTH (BEAKER) (test 17.4 % 11.6-14.4 rtbi=164) PLATELET COUNT (BEAKER) (test yoak=126) 244 K/CU MM 150-450 MEAN PLATELET VOLUME (BEAKER) (test ywcr=641) 11.1 fL 9.4-12.4 NUCLEATED RED BLOOD CELLS (BEAKER) (test 0 /100 WBC 0-0 jdpu=149) NEUTROPHILS RELATIVE PERCENT (BEAKER) (test 59 % vxsx=093) LYMPHOCYTES RELATIVE PERCENT (BEAKER) (test 23 % dllq=542) MONOCYTES RELATIVE PERCENT (BEAKER) (test 14 % lids=998) EOSINOPHILS RELATIVE PERCENT (BEAKER) (test 3 % xdzd=216) BASOPHILS RELATIVE PERCENT (BEAKER) (test 1 % rbwi=169) NEUTROPHILS ABSOLUTE COUNT (BEAKER) (test 5.10 K/ L 1.78-5.38 szla=628) LYMPHOCYTES ABSOLUTE COUNT (BEAKER) (test 2.04 K/ L 1.32-3.57 neiv=956) MONOCYTES ABSOLUTE COUNT (BEAKER) (test 1.26 K/ L 0.30-0.82 yqku=014) EOSINOPHILS ABSOLUTE COUNT (BEAKER) (test 0.22 K/ L 0.04-0.54 ldtx=862) BASOPHILS ABSOLUTE COUNT (BEAKER) (test 0.07 K/ L 0.01-0.08 kdmk=578) IMMATURE GRANULOCYTES-RELATIVE PERCENT (BEAKER) 0 % 0-1 (test lrns=6924) POCT-GLUCOSE [id number] 21:19:00 Test Item Value Reference Range Comments POC-GLUCOSE METER (BEAKER) 193 mg/dL 70-110 TESTED AT [address] (test cqtd=2886) [place] [address] C. DIFFICILE GDH [id number] 19:42:00 Test Item Value Reference Range Comments CDT TOXIN (test Negative Negative tscg=[id number]) CDT GDH ANTIGEN (test Negative Negative No indication of Clostridium johb=[id number]) difficile infection and no colonization. Discontinue enteric isolation and therapy. Testing performed by [employer] Rapid Cassette Assay. For GDH, published sensitivity of the assay is 98.7% compared to cytotoxicity testing. For Toxin AB, published sensitivity is 87.8% and specificity 99.4% compared to cytotoxicity testing.Verification of kit performance was done by the [facility] prior to clinical use.POCT-GLUCOSE [id number] 18:07:00 Test Item Value Reference Range Comments POC-GLUCOSE METER (BEAKER) 134 mg/dL 70-110 TESTED AT [address] (test sggw=8392) [place] [address] RAD, CHEST, 2 [id number] 13:37:00Reason for exam:->evaluate lungs for effusionFINAL REPORT [...] of the spine are noted. Signed: Peter Sahuepwilver Verified Date/Time: 11/18/2018 13:37:10 Reading Location: [facility] Reading Room POCT- GLUCOSE [id number] 12:08:00 Test Item Value Reference Range Comments POC-GLUCOSE METER (BEAKER) 151 mg/dL 70-110 TESTED AT [address] (test xauu=5514) [place] [id number] POCT-GLUCOSE [id number] 08:44:00 Test Item Value Reference Range Comments POC-GLUCOSE METER (BEAKER) 153 mg/dL 70-110 TESTED AT [address] (test oexs=3519) [place] [address] HEMOGLOBIN [id number] 08:17:00 Test Item Value Reference Range Comments HEMOGLOBIN A1C (BEAKER) (test yxlm=118) 10.9 % 4.3-6.1 URINALYSIS W/ REFLEX URINE [id number] 06:54:00 Test Item Value Reference Range Comments COLOR (BEAKER) (test mwhu=686) Yellow CLARITY (BEAKER) (test ibqx=797) Hazy SPECIFIC GRAVITY UA (BEAKER) (test sihd=600) 1.015 1.001-1.035 PH UA (BEAKER) (test kihr=645) 5.0 5.0-8.0 PROTEIN UA (BEAKER) (test wadz=394) 20 mg/dL Negative GLUCOSE UA (BEAKER) (test cxbf=532) >1000 mg/dL Negative KETONES UA (BEAKER) (test lfng=817) Negative Negative BILIRUBIN UA (BEAKER) (test qlrw=689) Negative Negative BLOOD UA (BEAKER) (test ixcf=791) Negative Negative NITRITE UA (BEAKER) (test hwgp=568) Negative Negative LEUKOCYTE ESTERASE UA (BEAKER) (test vvvv=982) Large Negative UROBILINOGEN UA (BEAKER) (test gzqh=007) 0.2 mg/dL 0.2-1.0 RBC UA (BEAKER) (test homv=390) 2 /HPF WBC UA (BEAKER) (test oibu=760) 12 /HPF BACTERIA (BEAKER) (test hywk=154) Rare SQUAMOUS EPITHELIAL (BEAKER) (test vkwx=625) 11 /HPF HYALINE CASTS (BEAKER) (test knpd=978) 3 /LPF SOURCE(BEAKER) (test cznv=4630) HEPATITIS B [id number] 05:07:00 Test Item Value Reference Range Comments HEPATITIS B CORE TOTAL ANTIBODY (BEAKER) (test Nonreactive Nonreactive qdqc=853) HEPATITIS B SURFACE ANTIBODY (BEAKER) (test < mIU/mL <8.0 wmqn=132) HEPATITIS B SURFACE ANTIGEN (2) (BEAKER) (test Nonreactive Nonreactive ezrt=3193) HEPATITIS C [id number] 04:53:00 Test Item Value Reference Range Comments HEPATITIS C ANTIBODY (BEAKER) (test myax=273) Nonreactive Nonreactive TSH/FREE T4 IF [id number] 04:53:00 Test Item Value Reference Range Comments THYROID STIMULATING HORMONE (BEAKER) (test 3.05 uIU/mL 0.35-4.94 mofq=801) [id number] 04:40:00 Test Item Value Reference Range Comments PROCALCITONIN (BEAKER) (test pegc=0195) 0.07 ng/mL <0.05 SEPSIS RISK (ng/mL)Low: 0.05-0.50Intermediate: 0.51-2.00High: & gt;=[id number] 04:38:00 Test Item Value Reference Range Comments AMMONIA (BEAKER) (test ohwf=674) 20 mol/L 18-72 [id number] 04:29:00 Test Item Value Reference Range Comments PHOSPHORUS (BEAKER) (test gouy=081) 4.2 mg/dL 2.3-4.7 [id number] 04:29:00 Test Item Value Reference Range Comments MAGNESIUM (BEAKER) (test iarf=425) 1.7 mg/dL 1.6-2.6 BASIC METABOLIC [id number] 04:29:00 Test Item Value Reference Range Comments SODIUM (BEAKER) (test 135 meq/L 136-145 eldu=413) POTASSIUM (BEAKER) (test 3.7 meq/L 3.5-5.1 lyuu=865) CHLORIDE (BEAKER) (test 101 meq/L 98-107 mlyk=445) CO2 (BEAKER) (test 23 meq/L 22-29 qblz=134) BLOOD UREA NITROGEN 37 mg/dL 7-21 (BEAKER) (test fbbj=747) CREATININE (BEAKER) (test 1.77 mg/dL 0.57-1.25 incw=627) GLUCOSE RANDOM (BEAKER) 165 mg/dL 70-105 (test qreg=367) CALCIUM (BEAKER) (test 9.0 mg/dL 8.4-10.2 vhmo=176) EGFR (BEAKER) (test 37 mL/min/1.73 sq m ESTIMATED GFR IS NOT posh=2756) ACCURATE CREATININE CLEARANCE IN PREDICTING GLOMERULAR FILTRATION RATE. ESTIMATED GFR IS NOT APPLICABLE FOR DIALYSIS PATIENTS. LIPID [id number] 04:29:00 Test Item Value Reference Range Comments TRIGLYCERIDES (BEAKER) (test fblu=763) 92 mg/dL CHOLESTEROL (BEAKER) (test swuk=103) 123 mg/dL HDL CHOLESTEROL (BEAKER) (test ngtz=339) 36 mg/dL LDL CHOLESTEROL CALCULATED (BEAKER) (test 69 mg/dL qmoj=295) Triglyceride Reference Range: Low Risk <150 Borderline 150- 199 High Risk 200-499 Very High Risk >=500Cholesterol Reference Range: Low Risk <200 Borderline 200-239 High Risk > 240HDL Cholesterol Reference Range: Low Risk >=60 High Risk <40LDL Cholesterol Reference Range: Optimal <100 Near Optimal 100-129 Borderline 130-159 High 160-189 Very High >=190HEPATIC FUNCTION [id number] 04:29:00 Test Item Value Reference Range Comments TOTAL PROTEIN (BEAKER) (test gnor=804) 6.0 gm/dL 6.0-8.3 ALBUMIN (BEAKER) (test olda=9887) 2.8 g/dL 3.5-5.0 BILIRUBIN TOTAL (BEAKER) (test bxor=577) 0.4 mg/dL 0.2-1.2 BILIRUBIN DIRECT (BEAKER) (test zgwo=621) 0.2 mg/dL 0.1-0.5 ALKALINE PHOSPHATASE (BEAKER) (test payt=655) 112 U/L 40-150 AST (SGOT) (BEAKER) (test fnyc=273) 16 U/L 5-34 ALT (SGPT) (BEAKER) (test lhmm=987) 11 U/L 6-55 [id number] 04:29:00 Test Item Value Reference Range Comments AMYLASE (BEAKER) (test cuho=908) 38 U/L 25-125 [id number] 04:29:00 Test Item Value Reference Range Comments LIPASE (BEAKER) (test mfrz=020) 47 U/L 8-78 LACTIC ACID, [id number] 03:58:00 Test Item Value Reference Range Comments LACTATE BLOOD VENOUS (2) 1.0 mmol/L 0.5-2.2 Specimen slightly hemolyzed (BEAKER) (test lwkw=8973) PROTHROMBIN [id number] 03:53:00 Test Item Value Reference Range Comments PROTIME (BEAKER) (test qowt=912) 14.7 seconds 11.9-14.2 INR (BEAKER) (test wenz=574) 1.2 <=5.9 Effective 07/17/2018: PT Reference Range ChangeNew: 11.9-14.2 Previous: 11.7- 14.7RECOMMENDED COUMADIN/WARFARIN INR THERAPY RANGESSTANDARD DOSE: 2.0-3.0 Includes: PROPHYLAXIS for venous thrombosis, systemic embolization; TREATMENT for venous thrombosis and/or pulmonary embolus.HIGH RISK: Target INR is2.5-3.5 for patients wiht mechanical heart valves.CBC W/PLT COUNT & AUTO [id number] 03:49:00 Test Item Value Reference Range Comments WHITE BLOOD CELL COUNT (BEAKER) (test bgcc=338) 10.2 K/ L 3.5-10.5 RED BLOOD CELL COUNT (BEAKER) (test kmrr=368) 3.67 M/ L 4.63-6.08 HEMOGLOBIN (BEAKER) (test ntwn=364) 9.9 GM/DL 13.7-17.5 HEMATOCRIT (BEAKER) (test lqfu=486) 31.3 % 40.1-51.0 MEAN CORPUSCULAR VOLUME (BEAKER) (test udyl=338) 85.3 fL 79.0-92.2 MEAN CORPUSCULAR HEMOGLOBIN (BEAKER) (test 27.0 pg 25.7-32.2 anop=317) MEAN CORPUSCULAR HEMOGLOBIN CONC (BEAKER) (test 31.6 GM/DL 32.3-36.5 swwl=907) RED CELL DISTRIBUTION WIDTH (BEAKER) (test 17.5 % 11.6-14.4 jndz=554) PLATELET COUNT (BEAKER) (test mwud=696) 219 K/CU MM 150-450 MEAN PLATELET VOLUME (BEAKER) (test cdmv=388) 10.9 fL 9.4-12.4 NUCLEATED RED BLOOD CELLS (BEAKER) (test 0 /100 WBC 0-0 qnrl=078) NEUTROPHILS RELATIVE PERCENT (BEAKER) (test 68 % xzag=819) LYMPHOCYTES RELATIVE PERCENT (BEAKER) (test 20 % nvdl=320) MONOCYTES RELATIVE PERCENT (BEAKER) (test 10 % zynk=595) EOSINOPHILS RELATIVE PERCENT (BEAKER) (test 1 % qzov=768) BASOPHILS RELATIVE PERCENT (BEAKER) (test 1 % jtlq=512) NEUTROPHILS ABSOLUTE COUNT (BEAKER) (test 6.87 K/ L 1.78-5.38 tdis=353) LYMPHOCYTES ABSOLUTE COUNT (BEAKER) (test 2.02 K/ L 1.32-3.57 spxa=787) MONOCYTES ABSOLUTE COUNT (BEAKER) (test 1.04 K/ L 0.30-0.82 brxa=342) EOSINOPHILS ABSOLUTE COUNT (BEAKER) (test 0.14 K/ L 0.04-0.54 zvrl=781) BASOPHILS ABSOLUTE COUNT (BEAKER) (test 0.06 K/ L 0.01-0.08 dska=500) IMMATURE GRANULOCYTES-RELATIVE PERCENT (BEAKER) 0 % 0-1 (test qbtg=4316) POCT-GLUCOSE [id number] 22:57:00 Test Item Value Reference Range Comments POC-GLUCOSE METER (BEAKER) 177 mg/dL 70-110 TESTED AT [facility] [address] [facility] (test kgev=5421) [facility], [place] [address]
[2019-03-04] MEDS ORDERED: PANTOPRAZOLE 40 MG INJ ONE (10:31)
[2019-03-04 10:54] LABS: Absolute Lymphocytes (CBC) 2.1 K/uL (0.7-4.9); Basophils % 0.8 % (0-1.3); Hematocrit 30.9 % (39.6-49.0); Lymphocytes % 22.7 % (15.3-44.8); MPV 11.9 fL (7.6-11.3)
[2019-03-04] MEDS ORDERED: ONDANSETRON 4 MG/2 ML VIAL ONE ×2 (11:02→13:49)
--- NOTE | 2019-03-04 11:02 | RAD REPORT ---
EXAM DESCRIPTION: RAD - Chest Single View - 03/04/2019 10:49 am CLINICAL HISTORY: COUGH Chest pain. COMPARISON: Chest Single View dated 01/26/2019; Abdomen 1 View (KUB) dated 01/20/2019; Chest Single Vi ew dated 01/20/2019; Chest Single View dated 11/17/2018 FINDINGS: Portable technique limits examination quality. Emphysematous changes are present throughout the lungs. Poorly defined spiculated area of nodularity is seen in the right mid lung, more prominent than on comparative studies. Nonemergent CT chest follo wup would be recommended. The heart is normal in size. Sternotomy wires present.
[2019-03-04 11:05] LABS: Protime INR 25.51
[2019-03-04 11:18] LABS: Albumin 2.7 g/dL (3.4-5.0); Bilirubin Direct 0.2 mg/dL (0-0.2); Bilirubin Total 0.4 mg/dL (0.2-1.0); Magnesium 2.1 mg/dL (1.8-2.4); Potassium 3.1 mmol/L (3.5-5.1); Protein, Total 5.8 g/dL (6.4-8.2); Troponin (Emerg Dept Use Only) 0.02 ng/mL (0.0-0.045)
[2019-03-04] MEDS ORDERED: VITAMIN K (ADULT) 10 MG/ML ONE (11:57)
[2019-03-04] MEDS ORDERED: FENTANYL CITR 100 MCG/2 ML ONE (12:03)
[2019-03-04] MEDS ORDERED: NA CHLORIDE 0.9% 500 ML ONE ×2 (12:23→20:07)
--- NOTE | 2019-03-04 13:00 | EDPHYS ---
Physician Documentation [facility] Name: Dirk Arshad Age: 83 yrs Sex: Male : 1935 Arrival Date: 03/04/2019 Time: 09:57 Bed 17 Private MD: CLIFF Physician Papa Bertrand HPI: 03/04 10:56 This 83 yrs old Male presents to ER via EMS with complaints of Abnormal Lab vince Results. 10:56 The patient presents with abdominal distention. Onset: The symptoms/episode vince began/occurred 2 day(s) ago. inr 23. The symptoms do not radiate. Historical: - Allergies: 10:24 PENICILLINS; ph - Home Meds: 10:24 insulin glargine subcutaneous Sub-Q 10 unit daily [Active]; warfarin 5 mg Oral tab 6 mg ph once daily [Active]; midodrine 5 mg oral tab 1 tabs 3 times per day [Active]; sucralfate 1 gram Oral tab 1 tab 4 times per day [Active]; atorvastatin 40 mg Oral tab 1 tab once daily [Active]; Remeron 15 mg Oral tab 1 tab once daily [Active]; finasteride 5 mg Oral tab 1 tab once daily [Active]; rifaximin oral 500 mg oral 1 tab 2 times per day [Active]; pantoprazole 40 mg Oral TbEC 1 tab once daily [Active]; lactulose 20 gram/30 mL Oral soln 30 mL 3 times per day [Active]; pancrelipase 96240 unit, 3 caps TID [Active]; insulin lispro subcutaneous subcutaneous [Active]; Vitamin B-12 Oral [Active]; thiamine HCl (vitamin B1) 100 mg Oral tab [Active]; Flomax 0.4 mg Oral cp24 1 cap once daily [Active]; cholecalciferol (vitamin D3) oral oral [Active]; - PMHx: 10:24 Diabetes - NIDDM; fatty liver; GERD; Hypertension; Myocardial infarction; Cirrhosis; ph DVT; - Immunization history:: Adult Immunizations up to date. - Social history:: Smoking status: Patient/guardian denies using tobacco. - Ebola Screening: : No symptoms or risks identified at this time. ROS: 10:58 Constitutional: Negative for fever, chills, and weight loss, Eyes: Negative for injury, vince pain, redness, and discharge, ENT: Negative for injury, pain, and discharge, Neck: Negative for injury, pain, and swelling, Cardiovascular: Negative for chest pain, palpitations, and edema, Respiratory: Negative for shortness of breath, cough, wheezing, and pleuritic chest pain, Back: Negative for injury and pain, : Negative for injury, bleeding, discharge, and swelling, MS/Extremity: Negative for injury and deformity, Neuro: Negative for headache, weakness, numbness, tingling, and seizure, Psych: Negative for depression, anxiety, suicide ideation, homicidal ideation, and hallucinations, Allergy/Immunology: Negative for hives, rash, and allergies, Endocrine: Negative for neck swelling, polydipsia, polyuria, polyphagia, and marked weight changes, Hematologic/Lymphatic: Negative for swollen nodes, abnormal bleeding, and unusual bruising. 10:58 Abdomen/GI: Positive for abdominal distension. 10:58 MS/extremity: Positive for ecchymosis. Exam: 10:58 Constitutional: This is a well developed, well nourished patient who is awake, alert, vince and in no acute distress. Head/Face: Normocephalic, atraumatic. Eyes: Pupils equal round and reactive to light, extra-ocular motions intact. Lids and lashes normal. Conjunctiva and sclera are non-icteric and not injected. Cornea within normal limits. Periorbital areas with no swelling, redness, or edema. ENT: Nares patent. No nasal discharge, no septal abnormalities noted. Tympanic membranes are normal and external auditory canals are clear. Oropharynx with no redness, swelling, or masses, exudates, or evidence of obstruction, uvula midline. Mucous membranes moist. Neck: Trachea midline, no thyromegaly or masses palpated, and no cervical lymphadenopathy. Supple, full range of motion without nuchal rigidity, or vertebral point tenderness. No Meningismus. Chest/axilla: Normal chest wall appearance and motion. Nontender with no deformity. No lesions are appreciated. Cardiovascular: Regular rate and rhythm with a normal S1 and S2. No gallops, murmurs, or rubs. Normal PMI, no JVD. No pulse deficits. Respiratory: Lungs have equal breath sounds bilaterally, clear to auscultation and percussion. No rales, rhonchi or wheezes noted. No increased work of breathing, no retractions or nasal flaring. Back: No spinal tenderness. No costovertebral tenderness. Full range of motion. MS/ Extremity: Pulses equal, no cyanosis. Neurovascular intact. Full, normal range of motion. Neuro: Awake and alert, GCS 15, oriented to person, place, time, and situation. Cranial nerves II-XII grossly intact. Motor strength 5/5 in all extremities. Sensory grossly intact. Cerebellar exam normal. Normal gait. Psych: Awake, alert, with orientation to person, place and time. Behavior, mood, and affect are within normal limits. 10:58 Abdomen/GI: Inspection: distension, Bowel sounds: normal, Palpation: abdomen is soft and non-tender, Liver: no appreciated palpable abnormalities, Hernia: not appreciated. Vital Signs: 10:01 BP 111 / 70; Pulse 60; Resp 18; Temp 96.7(TE); Pulse Ox 100% on R/A; ph 11:08 BP 91 / 57; Pulse 55; Resp 18; Pulse Ox 96% on R/A; mh5 12:04 BP 96 / 59; Pulse 71; Resp 19; Pulse Ox 100% on R/A; mh5 13:00 BP 98 / 52; Pulse 68; Resp 16; Pulse Ox 98% on R/A; ph 14:00 BP 97 / 63; Pulse 74; Resp 16; Pulse Ox 98% on R/A; ph 15:00 BP 97 / 52; Pulse 65; Resp 18; Pulse Ox 97% on R/A; ph 15:59 BP 95 / 57; Pulse 64; Resp 18; Temp 96.7(TE); Pulse Ox 98% on R/A; ph 17:00 BP 101 / 58; Pulse 68; Resp 18; Temp 96.7; Pulse Ox 99% on R/A; ph MDM: 09:59 Patient medically screened. [facility] 10:59 Data reviewed: vital signs, nurses notes, lab test result(s), EKG, radiologic studies, vince plain films. 03/04 10:00 Order name: Basic Metabolic Panel; Complete Time: : [facility] 03/04 10:00 Order name: CBC with Diff; Complete Time: : [facility] 03/04 10:00 Order name: LFT's; Complete Time: : [facility] 03/04 10:00 Order name: Magnesium; Complete Time: :27 [facility] 03/04 10:00 Order name: NT PRO-BNP; Complete Time: 11:27 [facility] 03/04 10:00 Order name: PT-INR; Complete Time: 11:27 [facility] 03/04 10:00 Order name: Troponin (emerg Dept Use Only); Complete Time: 11:27 [facility] 03/04 10:00 Order name: Urine Culture [facility] 03/04 10:00 Order name: Type And Screen [facility] 03/04 10:57 Order name: AMMONIA; Complete Time: 12:56 [facility] 03/04 11:35 Order name: Bb Add On bd 03/04 11:43 Order name: Fresh Frozen Plasma [facility] 03/04 14:27 Order name: Protime (+INR) [facility] 03/04 10:00 Order name: XRAY Chest (1 view); Complete Time: 11:27 [facility] 03/04 10:00 Order name: EKG; Complete Time: 10:01 [facility] 03/04 14:27 Order name: CONS Pharmacy Consult [facility] 03/04 14:27 Order name: Protime (+INR) [facility] 03/04 14:27 Order name: Protime (+INR) [facility] 03/04 14:27 Order name: Protime (+INR) [facility] 03/04 14:27 Order name: Protime (+INR) [facility] 03/04 14:27 Order name: Protime (+INR) [facility] 03/04 16:29 Order name: PT-INR bp 03/04 16:56 Order name: Protime (+INR) [facility] 03/04 16:59 Order name: CT [facility] 03/04 10:00 Order name: Cardiac monitoring; Complete Time: 10:26 [facility] 03/04 10:00 Order name: EKG - Nurse/Tech; Complete Time: 10:26 [facility] 03/04 10:00 Order name: IV Saline Lock; Complete Time: 12:45 [facility] 03/04 10:00 Order name: Labs collected and sent; Complete Time: 12:45 [facility] 03/04 10:00 Order name: O2 Per Protocol; Complete Time: 10:26 [facility] 03/04 10:00 Order name: O2 Sat Monitoring; Complete Time: 10:26 [facility] Administered Medications: 10:50 Drug: ProTONIX 40 mg Route: IVP; Site: right forearm; ph 11:30 Follow up: Response: No adverse reaction ph 11:20 Drug: Zofran 4 mg Route: IVP; Site: right forearm; ph 12:00 Follow up: Response: No adverse reaction ph 12:15 Drug: Vitamin K1 5 mg Route: Sub-Q; Site: left upper arm; ph 13:00 Follow up: Response: No adverse reaction ph 14:05 Drug: Zofran 4 mg Route: IVP; Site: right forearm; ph 14:35 Follow up: Response: No adverse reaction; Nausea unchanged; Vomiting unchanged ph 14:45 Drug: Phenergan 6.25 mg Route: IVP; Site: right forearm; ph 15:30 Follow up: Response: No adverse reaction; Nausea is decreased; Vomiting decreased ph Disposition: 03/04/19 12:59 Hospitalization ordered by Rey Zamora for Inpatient Admission. Preliminary diagnosis are Coagulation defect, unspecified - inr 25, Ascites, Unspecified kidney failure, Hypokalemia, Anemia, unspecified. - Bed requested for Telemetry/MedSurg (Inpatient). - Status is Inpatient Admission. ph - Condition is Fair. - Problem is new. - Symptoms have improved. UTI on Admission? No Signatures: Dispatcher [employer] EDMS Aurelia Hobson Corey, MD MD cha Hall, Patricia RN RN ph Corrections: (The following items were deleted from the chart) 15:41 12:59 Hospitalization Ordered by Rey Zamora MD for Inpatient Admission. Preliminary bd diagnosis is Coagulation defect, unspecified - inr 25; Ascites; Unspecified kidney failure; Hypokalemia; Anemia, unspecified. Bed requested for Telemetry/MedSurg (Inpatient). Status is Inpatient Admission. Condition is Fair. Problem is new. Symptoms have improved. UTI on Admission? No. vince 17:29 15:41 03/04/2019 12:59 Hospitalization Ordered by Rey Zamora MD for Inpatient ph Admission. Preliminary diagnosis is Coagulation defect, unspecified - inr 25; Ascites; Unspecified kidney failure; Hypokalemia; Anemia, unspecified. Bed requested for Telemetry/MedSurg (Inpatient). Status is Inpatient Admission. Condition is Fair. Problem is new. Symptoms have improved. UTI on Admission? No. bd
--- NOTE | 2019-03-04 13:00 | ER ---
Nurse's Notes [facility] Name: Dirk Arshad Age: 83 yrs Sex: Male : 1935 Arrival Date: 03/04/2019 Time: 09:57 Bed 17 Private MD: Diagnosis: Coagulation defect, unspecified-inr 25;Ascites;Unspecified kidney failure;Hypokalemia;Anemia, unspecified Presentation: 03/04 09:57 Presenting complaint: EMS states: From [facility], had blood work done and INR was ph 23.39, pt takes Coumadin, hx of DVT, bruising noted to extremities and abdomen distended, hx of liver issues. Transition of care: patient was received from another setting of care (long-term care facility), [facility]. Onset of symptoms was March 04, 2019. Risk Assessment: Do you want to hurt yourself or someone else? Patient reports no desire to harm self or others. Initial Sepsis Screen: Does the patient meet any 2 criteria? No. Patient's initial sepsis screen is negative. Does the patient have a suspected source of infection? No. Patient's initial sepsis screen is negative. Care prior to arrival: None. 09:57 Method Of Arrival: EMS: [facility] ph 09:57 Acuity: ELVIRA 3 ph 11:59 Acuity: ELVIRA 2 iw Historical: - Allergies: 10:24 PENICILLINS; ph - Home Meds: 10:24 insulin glargine subcutaneous Sub-Q 10 unit daily [Active]; warfarin 5 mg Oral tab 6 mg ph once daily [Active]; midodrine 5 mg oral tab 1 tabs 3 times per day [Active]; sucralfate 1 gram Oral tab 1 tab 4 times per day [Active]; atorvastatin 40 mg Oral tab 1 tab once daily [Active]; Remeron 15 mg Oral tab 1 tab once daily [Active]; finasteride 5 mg Oral tab 1 tab once daily [Active]; rifaximin oral 500 mg oral 1 tab 2 times per day [Active]; pantoprazole 40 mg Oral TbEC 1 tab once daily [Active]; lactulose 20 gram/30 mL Oral soln 30 mL 3 times per day [Active]; pancrelipase 47351 unit, 3 caps TID [Active]; insulin lispro subcutaneous subcutaneous [Active]; Vitamin B-12 Oral [Active]; thiamine HCl (vitamin B1) 100 mg Oral tab [Active]; Flomax 0.4 mg Oral cp24 1 cap once daily [Active]; cholecalciferol (vitamin D3) oral oral [Active]; - PMHx: 10:24 Diabetes - NIDDM; fatty liver; GERD; Hypertension; Myocardial infarction; Cirrhosis; ph DVT; - Immunization history:: Adult Immunizations up to date. - Social history:: Smoking status: Patient/guardian denies using tobacco. - Ebola Screening: : No symptoms or risks identified at this time. Screenin:05 Abuse screen: Denies threats or abuse. Denies injuries from another. Nutritional ph screening: No deficits noted. Tuberculosis screening: No symptoms or risk factors identified. Fall Risk None identified. Assessment: 11:00 General: Appears in no apparent distress. comfortable, slender, well groomed, Behavior ph is calm, cooperative, appropriate for age, Denies fever. Pain: Denies pain. Neuro: Level of Consciousness is awake, obeys commands, lethargic, Oriented to person, place, time, situation. Cardiovascular: Reports fatigue, lightheadedness, nausea, Denies chest pain, shortness of breath, Capillary refill < 3 seconds in bilateral fingers Patient's skin is warm and dry. Respiratory: Airway is patent Respiratory effort is even, unlabored, Respiratory pattern is regular, symmetrical. GI: Abdomen is round noted to have ascites, Reports nausea, Patient currently denies vomiting. Derm: Skin is fragile, is thin, has skin tears on bilateral arms, in various stages of healing Bruising that is bright red, dark purple, on right arm and left arm. Musculoskeletal: Circulation, motion, and sensation intact. 12:00 Reassessment: Patient appears in no apparent distress at this time. No changes from ph previously documented assessment. Patient and/or family updated on plan of care and expected duration. Pain level reassessed. Patient is alert, oriented x 3, equal unlabored respirations, skin warm/dry/pink. 13:00 Reassessment: Patient appears in no apparent distress at this time. Patient and/or ph family updated on plan of care and expected duration. Pain level reassessed. Patient is alert, oriented x 3, equal unlabored respirations, skin warm/dry/pink. 13:30 Reassessment: Patient appears in no apparent distress at this time. Patient and/or ph family updated on plan of care and expected duration. Pain level reassessed. Patient is alert, oriented x 3, equal unlabored respirations, skin warm/dry/pink. Pt actively vomiting, ERP notified, see MAR. 14:30 Reassessment: Patient appears in no apparent distress at this time. Patient and/or ph family updated on plan of care and expected duration. Pain level reassessed. Patient is alert, oriented x 3, equal unlabored respirations, skin warm/dry/pink. 14:45 Reassessment: Pt continues to c/o nausea, ERP notified, see MAR. ph 16:50 Reassessment: Patient appears in no apparent distress at this time. Patient and/or ph family updated on plan of care and expected duration. Pain level reassessed. Re-port called to TJ on 2nd floor who requested that we wait 20- 30 min to send pt to room so that he could transfer another pt. Vital Signs: 10:01 BP 111 / 70; Pulse 60; Resp 18; Temp 96.7(TE); Pulse Ox 100% on R/A; ph 11:08 BP 91 / 57; Pulse 55; Resp 18; Pulse Ox 96% on R/A; mh5 12:04 BP 96 / 59; Pulse 71; Resp 19; Pulse Ox 100% on R/A; mh5 13:00 BP 98 / 52; Pulse 68; Resp 16; Pulse Ox 98% on R/A; ph 14:00 BP 97 / 63; Pulse 74; Resp 16; Pulse Ox 98% on R/A; ph 15:00 BP 97 / 52; Pulse 65; Resp 18; Pulse Ox 97% on R/A; ph 15:59 BP 95 / 57; Pulse 64; Resp 18; Temp 96.7(TE); Pulse Ox 98% on R/A; ph 17:00 BP 101 / 58; Pulse 68; Resp 18; Temp 96.7; Pulse Ox 99% on R/A; ph ED Course: 09:57 Patient arrived in ED. ph 09:59 Papa Bertrand MD is Attending Physician. [facility] 10:00 Triage completed. ph 10:04 Patient has correct armband on for positive identification. Placed in gown. Bed in low mh5 position. Call light in reach. Side rails up X2. Adult w/ patient. Warm blanket given. Pillow given. Pulse ox on. NIBP on. 10:25 Kylie Toledo RN is Primary Nurse. ph 10:30 EKG done, by financial services technician. reviewed by Papa Bertrand MD. at1 10:40 Inserted saline lock: 22 gauge in right forearm, using aseptic technique. ph 10:50 XRAY Chest (1 view) In Process Unspecified. EDMS 11:06 Notified ED physician of a critical lab result(s). INR=25.51. iw 12:00 Inserted saline lock: 22 gauge in left forearm, using aseptic technique. ph 12:58 Rey Zamora MD is Hospitalizing Provider. vince 15:15 Arm band placed on. ph 16:03 No provider procedures requiring assistance completed. ph 17:28 Patient admitted, IV remains in place. ph Administered Medications: 10:50 Drug: ProTONIX 40 mg Route: IVP; Site: right forearm; ph 11:30 Follow up: Response: No adverse reaction ph 11:20 Drug: Zofran 4 mg Route: IVP; Site: right forearm; ph 12:00 Follow up: Response: No adverse reaction ph 12:15 Drug: Vitamin K1 5 mg Route: Sub-Q; Site: left upper arm; ph 13:00 Follow up: Response: No adverse reaction ph 14:05 Drug: Zofran 4 mg Route: IVP; Site: right forearm; ph 14:35 Follow up: Response: No adverse reaction; Nausea unchanged; Vomiting unchanged ph 14:45 Drug: Phenergan 6.25 mg Route: IVP; Site: right forearm; ph 15:30 Follow up: Response: No adverse reaction; Nausea is decreased; Vomiting decreased ph Medication: 13:15 Blood products: FFP X 1 unit given. ph 14:55 Blood products: FFP X 1 unit given. ph Outcome: 12:59 Decision to Hospitalize by Provider. vince 17:27 Admitted to Tele accompanied by tech, family with patient, via stretcher, room 230, ph with chart, Report called to 17:27 Condition: stable 17:27 Instructed on the need for admit. 17:29 Patient left the ED. ph Signatures: Dispatcher [employer] Papa Siddiqui MD MD cha Williams, Irene, RN RN iw Gonzales, Amanda, automobile damage field appraiser EKG Tat1 Kylie Toledo RN RN Alda Roger [facility] Corrections: (The following items were deleted from the chart) 15:59 13:50 Phenergan 6.25 mg IVP in right forearm ph ph
[2019-03-04] MEDS ORDERED: PROMETHAZINE INJ 25 MG/ML AMP ONE (14:28)
--- NOTE | 2019-03-04 14:30 | P.HP ---
Certification for Inpatient With expected LOS: >2 Midnights Practitioner: I am a practitioner with admitting privileges, knowledge of patient current condition, hospital course, and medical plan of care. Services: Services provided to patient in accordance with Admission requirements found in Title 42 Section 412.3 of the Code of Federal Regulations Patient History Date of Service: 03/04/19 Reason for admission: Coagulopathy History of Present Illness: Mr. Arshad is 83-year-old male with Cirrhosis of the liver, who presented to the ER from [facility] facility due to prolonged INR. Patient does not have any Overt bleeding. He was admitted to the hospital January 2019 for decompensated liver disease. Patient was transferred to [facility] for evaluation of possible TIPS given severe disease. Patient was found to have left lower extremity DVT on that hospitalization. He was started on heparin and bridged with Coumadin therapy. [facility] was then [facility] to [facility]. Apparently, patient was improved and increased appetite as well recently. His abdomen was notably increasing in size over the past few days due to significant ascites. Ascites have caused him to have decreased oral intake and some mild SOB. He was on Coumadin, it is unclear if INR was being monitored or the trend. He was found to have INR of 23.2 and now referred for admission. INR is currently at 25 with no overt bleeding. He denies any pain. Allergies Penicillins Allergy (Verified 01/14/19 10:56) Itching Home Medications: Allopurinol 300 mg PO DAILY 01/09/19 Aspirin [Aspirin EC 81 MG] 81 mg PO DAILY 01/09/19 Cyanocobalamin (Vitamin B-12) [Vitamin B12] 2,500 mcg PO DAILY 01/09/19 Finasteride [Proscar*] 5 mg PO DAILY 01/09/19 Furosemide 20 mg PO DAILY 01/09/19 Magnesium Oxide [Mag 0X*] 400 mg PO DAILY 01/09/19 Pantoprazole [Protonix Tab*] 40 mg PO DAILY 01/09/19 CEFEPIME/SWI 1gm [Maxipime 1 gm/10 ml Ivp] 1 gm IV BID 01/27/19 Ensure Pudding 4 oz PO BID 01/27/19 Glucerna Shake [Glucerna*] 237 ml PO BID 01/27/19 Insulin Glargine Human [Lantus] 20 unit SQ DAILY 01/27/19 Lactulose [Cephulac] 20 gm PO Q4H 01/27/19 Protein Supplement [Promod] 30 ml PO BID 01/27/19 Rifaximin [Xifaxan] 550 mg PO BID 01/27/19 - Past Medical/Surgical History Diabetic: Yes -: Hypertension -: Pancreatitis -: NIDDM -: Liver Cirrhosis -: bph -: hyperlipidemia -: gerd -: CABG 2006 -: Hernia Repair -: Cholecystectomy -: Back Surgery -: Bilateral cataracts Surgery -: Paracentesis - Family History Mother Notes: - old age Father -: Stroke Notes: - Social History Smoking Status: Never smoker Alcohol use: No CD- Drugs: No Caffeine use: No Review of Systems Respiratory: Shortness of Breath Gastrointestinal: Distention Neurological: Weakness Physical Examination - Physical Exam General: In no apparent distress, Cachectic, Other (chronic ill appearing) HEENT: Atraumatic, Normocephalic Neck: Supple, No LAD Respiratory: Diminished (at bases) Cardiovascular: Regular rate/rhythm, No rubs, Edema (3+ L>R) Gastrointestinal: Hypoactive, No tenderness, Distended, Ascites Musculoskeletal: No clubbing, Swelling, Tenderness Neurological: Normal speech - Studies Laboratory Data (last 24 hrs) 03/04/19 10:40: PT 265.8 H, INR 25.51 H* 03/04/19 10:40: WBC 9.2 D, Hgb 9.9 L, Hct 30.9 L, Plt Count 149 L D 03/04/19 10:40: Sodium 142, Potassium 3.1 L, BUN 48 H, Creatinine 2.10 H, Glucose 85, Magnesium 2.1 D, Total Bilirubin 0.4, AST 48 H, ALT 51, Alkaline Phosphatase 163 H Assessment and Plan - Plan Mr. Arshad is 83y/o male with liver cirrhosis presented with coagulopathy. #Severe Coagulopathy- INR currently at 25.5. - the patient was on Coumadin therapy. -H&H is close to baseline. -obtain a CT abdomen to rule out intra-abdominal Hemorrhage. -2 units FFP is given. INR will be checked afterwards. -vitamin K given. -monitor closely for bleeding. avoid unnecessary venipuncture. #Acute kidney injury-patient is hypervolemic. Cannot rule out intravascular depletion. -will increase the Lasix therapy to IV. -monitor urine output. -Trend Cr and avoid nephrotoxins -consult online media director for assistance. #Cirrhosis of the liver with ascites- Will continue on diuretics for now. -paracentesis will be entertained once INR is less than 2. #Mild hepatic encephalopathy-continue patient on rifaximin and lactulose. #Diabetes Mellitus-BG AC and HS and cover with insulin sliding scale. -I will hold the patient's oral hypoglycemic agents. # Coronary artery disease-hold aspirin. -Continue on statin therapy. #GERD-continue Protonix. #Anemia- Chronic normocytic anemia. -H&H is stable. -continue close monitoring. Further recommendation pending work up. #DVT ppx- currently coagulopathic #GI ppx- continue protonix Patient is full code per at bedside who is also MPOA. - Advance Directives Does patient have a Living Will: No Does patient have a Durable POA for Healthcare: Yes - Code Status/Comfort Care Code Status Assessed: Yes Code Status: Full Code
[2019-03-04] MEDS ORDERED: D50W 25 GM/50 ML SYRINGE/VIAL IV PRN (16:31)
[2019-03-04] MEDS ORDERED: GLUCAGON 1 MG/VIAL IM PRN (16:31)
[2019-03-04 16:54] LABS: Protime INR 3.62
--- NOTE | 2019-03-04 16:57 | RAD REPORT ---
EXAM DESCRIPTION: CT - Abdomen Pelvis Wo Contrast - 03/04/2019 4:41 pm CLINICAL HISTORY: Abdominal pain. ascites, coagulopathy. concern for intraabdominal COMPARISON: Abdomen Pelvis Wo Contrast dated 11/17/2018; Chest Single View dated 03/04/2019; Abdomen 1 View (KUB) dated 01/20/2019 TECHNIQUE: CT imaging of the abdomen and pelvis was performed without contrast. Solid organ, bowel a nd vascular assessment is limited due to lack of IV and oral contrast. All CT scans are performed using dose optimization technique as appropriate and may include automated exposure control or mA/KV adjustment according to patient size. FINDINGS: Emphysematous changes are present throughout the lungs. Prominent liver cirrhosis is seen with common bile duct stent in place. Moderate pneumobilia. Normal size spleen. Adrenal glands and kidneys show no acute process.Prominent distention of the stomach see n. Moderate to large volume of ascites. Moderate stool in the colon. No bowel obstruction. No acute fracture.Air is present in the urinary bladder. IMPRESSION: Large volume ascites. Air is present in the urinary bladder which could indicate infection or recent instrumentation. A limited non-contrast examination was performed as detailed.
[2019-03-04] MEDS ORDERED: FUROSEMIDE 40 MG/4 ML VIAL IV ONE (17:00)
--- NOTE | 2019-03-04 18:17 | P.CNS ---
Date of Consult: 03/04/19 Reason for Consult: HAZEL Requesting Physician: Rey Zamora Chief Complaint: Coagulopathy History of Present Illness: Mr. Arshad is 83-year-old male with Cirrhosis of the liver, who presented to the ER from long term facility due to prolonged INR. Patient does not have any Overt bleeding. He was admitted to the hospital January 2019 for decompensated liver disease. Patient was transferred to [facility] for evaluation of possible TIPS given severe disease. Patient was found to have left lower extremity DVT on that hospitalization. He was started on heparin and bridged with Coumadin therapy. He was then discharged to long term for rehabilitation. Apparently, patient was improved and increased appetite as well recently. His abdomen was notably increasing in size over the past few days due to significant ascites. Ascites have caused him to have decreased oral intake and some mild SOB. He was on Coumadin, it is unclear if INR was being monitored or the trend. He was found to have INR of 23.2 and now referred for admission. INR is currently at 25 with no overt bleeding. He denies any pain. 10:56 This 83 yrs old Male presents to ER via EMS with complaints of Abnormal Lab vince Results. 10:56 The patient presents with abdominal distention. Onset: The symptoms/ episode vince began/occurred 2 day(s) ago. inr 23. The symptoms do not radiate. Allergies Penicillins Allergy (Verified 01/14/19 10:56) Itching Home medications list reviewed: Yes Home Medications: Allopurinol 300 mg PO DAILY 01/09/19 Cyanocobalamin (Vitamin B-12) [Vitamin B12] 2,500 mcg PO DAILY 01/09/19 Finasteride [Proscar*] 5 mg PO DAILY 01/09/19 Furosemide 20 mg PO DAILY 01/09/19 Magnesium Oxide [Mag 0X*] 400 mg PO DAILY 01/09/19 Pantoprazole [Protonix Tab*] 40 mg PO DAILY 01/09/19 Ensure Pudding 4 oz PO BID 01/27/19 Glucerna Shake [Glucerna*] 237 ml PO BID 01/27/19 Insulin Glargine Human [Lantus] 20 unit SQ DAILY 01/27/19 Lactulose [Cephulac] 20 gm PO Q4H 01/27/19 Protein Supplement [Promod] 30 ml PO BID 01/27/19 Rifaximin [Xifaxan] 550 mg PO BID 01/27/19 Atorvastatin Calcium [Lipitor] 40 mg PO DAILY 03/04/19 Cholecalciferol (Vitamin D3) [Vitamin D3] 1 cap PO DAILY 03/04/19 Insulin Glargine Human [Lantus] 10 unit SQ DAILY 03/04/19 Lipase/Protease/Amylase [Seb Dr 12,000 Units Capsule] 1 cap PO TID 03/04/19 Midodrine HCl [Proamatine] 5 mg PO TID 03/04/19 Sucralfate [Carafate -Tab] 1 gm PO QID 03/04/19 Tamsulosin [Flomax*] 1 cap PO DAILY 03/04/19 Thiamine HCl [Vitamin B-1*] 1 tab PO DAILY 03/04/19 Warfarin Sodium 6 mg PO DAILY 03/04/19 - Past Medical/Surgical History Diabetic: Yes -: Hypertension -: Pancreatitis -: NIDDM -: Liver Cirrhosis -: bph -: hyperlipidemia -: gerd -: CABG 2006 -: Hernia Repair -: Cholecystectomy -: Back Surgery -: Bilateral cataracts Surgery -: Paracentesis - Family History Mother Notes: - old age Father Medical History: Stroke Notes: - Social History Smoking Status: Unknown if ever smoked Alcohol use: No CD- Drugs: No Caffeine use: No Review of Systems 10-point ROS is otherwise unremarkable Physical Examination Temp Pulse Resp BP Pulse Ox 96.7 F L 64 18 95/57 L 03/04/19 15:59 03/04/19 15:59 03/04/19 15:59 03/04/19 15:59 Laboratory Data (last 24 hrs) 03/04/19 10:40: PT 265.8 H, INR 25.51 H* 03/04/19 10:40: WBC 9.2 D, Hgb 9.9 L, Hct 30.9 L, Plt Count 149 L D 03/04/19 10:40: Sodium 142, Potassium 3.1 L, BUN 48 H, Creatinine 2.10 H, Glucose 85, Magnesium 2.1 D, Total Bilirubin 0.4, AST 48 H, ALT 51, Alkaline Phosphatase 163 H Imagings Data: EXAM DESCRIPTION: RAD - Chest Single View - 03/04/2019 10:49 am CLINICAL HISTORY: COUGH Chest pain. COMPARISON: Chest Single View dated 01/26/2019; Abdomen 1 View (KUB) dated 2018; Chest Single View dated 01/20/2019; Chest Single View dated 11/17/2018 FINDINGS: Portable technique limits examination quality. Emphysematous changes are present throughout the lungs. Poorly defined spiculated area of nodularity is seen in the right mid lung, more prominent than on comparative studies. Nonemergent CT chest followup would be recommended. The heart is normal in size. Sternotomy wires present. EXAM DESCRIPTION: CT - Abdomen Pelvis Wo Contrast - 03/04/2019 4:41 pm CLINICAL HISTORY: Abdominal pain. ascites, coagulopathy. concern for intraabdominal COMPARISON: Abdomen Pelvis Wo Contrast dated 11/17/2018; Chest Single View dated 03/04/2019; Abdomen 1 View (KUB) dated 01/20/2019 TECHNIQUE: CT imaging of the abdomen and pelvis was performed without contrast. Solid organ, bowel and vascular assessment is limited due to lack of IV and oral contrast. All CT scans are performed using dose optimization technique as appropriate and may include automated exposure control or mA/KV adjustment according to patient size. FINDINGS: Emphysematous changes are present throughout the lungs. Prominent liver cirrhosis is seen with common bile duct stent in place. Moderate pneumobilia. Normal size spleen. Adrenal glands and kidneys show no acute process.Prominent distention of the stomach seen. Moderate to large volume of ascites. Moderate stool in the colon. No bowel obstruction. No acute fracture.Air is present in the urinary bladder. IMPRESSION: Large volume ascites. Air is present in the urinary bladder which could indicate infection or recent instrumentation. A limited non-contrast examination was performed as detailed. Conclusions/Impression: A/ HAZEL in the setting of hypotension/ hypoperfusion. Hypokalemia Hypoalbuminemia. Liver cirrhosis. BPH. Anemia in chronic illness. Thrombocytopenia. Coagulopathy in the setting of coumadin therapy. P/ Continue current POC and Medications. No IVF at this time. Diuretic therapy as tolerated. Potassium replacement as ordered. Consider midodrine to improve BP and perfusion. Plan for paracentesis; Give IV Albumin. Transfuse PRBC as needed. No NSAIDs. AM labs. Daily weight. Thank you kindly for the consultation.
[2019-03-04 18:24] VITALS: BMI 19.5
[2019-03-04 18:25] LABS: Absolute Lymphocytes (CBC) 0.6 K/uL (0.7-4.9); Basophils % 0.3 % (0-1.3); Hematocrit 27.2 % (39.6-49.0); Lymphocytes % 12.4 % (15.3-44.8); MPV 11.4 fL (7.6-11.3); RBC Red Blood Cell Count 3.08 M/uL (4.33-5.43)
[2019-03-04] MEDS: CEFTRIAXONE/SWI 1gm 1 GM/10 ML SYR IVP SCH (18:35)
[2019-03-04] MEDS: LACTULOSE 20 GM/30 ML UCUP PO SCH ×2 (18:40→20:36)
[2019-03-04] MEDS ORDERED: POTASSIUM CL SA 10 MEQ TAB PO ONE (19:00)
[2019-03-04 19:28] LABS: Platelet Estimate DECR; Urine White Blood Cell Casts OK
[2019-03-04 19:29] LABS: Anisocytosis 1+; Blood Morphology Comment NOTED (NOT SEEN); Poikilocytosis 2+
[2019-03-04] MEDS: GLUCERNA SHAKE 237 ML CAN PO SCH (20:34)
[2019-03-04] MEDS: INSULIN -REGULAR HUMAN 50 UNIT/0.5 ML ML SQ SCH (20:34)
[2019-03-04] MEDS: Rifaximin 550 MG Tab PO SCH (20:34)
[2019-03-04] MEDS: ENSURE PUDDING 4 OZ CUP PO SCH (20:35)
[2019-03-04] MEDS: KCL 20 MEQ/100 mL IVPB 20 MEQ/100 ML BAG IV SCH ×2 (20:37→22:28)
--- NOTE | 2019-03-04 20:56 | EKG ---
Test Date: 2019-03-04 Test Time: 10:13:24 Hand Candle Molder: CLARE MEASUREMENT RESULTS: Intervals: Rate: 59 ME: 230 QRSD: 102 QT: 464 QTc: 459 [place]: P: 78 ME: 230 QRS: 48 T: 70 INTERPRETIVE STATEMENTS: Sinus bradycardia with 1st degree AV block Incomplete right bundle branch block ST & T wave abnormality, consider anterior ischemia Abnormal ECG Compared to ECG 11/17/2018 14:57:32 First degree AV block now present Incomplete right bundle-branch block now present Sinus rhythm no longer present Ventricular premature complex(es) no longer present Right bundle-branch block no longer present ST (T wave) deviation still present Possible ischemia still present Electronically Signed On 03-04-19 20:54:51 CUTTER INSPECTOR by Rafat Martin
[2019-03-05] MEDS: KCL 20 MEQ/100 mL IVPB 20 MEQ/100 ML BAG IV SCH (01:02)
[2019-03-05] MEDS: LACTULOSE 20 GM/30 ML UCUP PO SCH ×7 (01:02→21:23)
[2019-03-05 05:40] LABS: Absolute Lymphocytes (CBC) 0.5 K/uL (0.7-4.9); Basophils % 0.3 % (0-1.3); Hematocrit 29.2 % (39.6-49.0); Lymphocytes % 6.9 % (15.3-44.8); MPV 11.4 fL (7.6-11.3); RBC Red Blood Cell Count 3.29 M/uL (4.33-5.43)
[2019-03-05 05:50] LABS: Protime INR 5.57
[2019-03-05 05:59] LABS: Magnesium 2.1 mg/dL (1.8-2.4); Phosphorus 3.3 mg/dL (2.5-4.9); Potassium 3.6 mmol/L (3.5-5.1); Uric Acid 8.7 mg/dL (3.5-7.2)
[2019-03-05] MEDS ORDERED: D50W 25 GM/50 ML SYRINGE/VIAL IV ONE (06:05)
[2019-03-05] MEDS ORDERED: VITAMIN K (ADULT) 10 MG/ML SQ SCH (07:00)
[2019-03-05] MEDS: INSULIN -REGULAR HUMAN 50 UNIT/0.5 ML ML SQ SCH ×4 (07:30→21:00)
[2019-03-05] MEDS ORDERED: HOME MED 1 EA UNK (Cyanocobalamin (Vitamin B-12) [Vitamin B12] 2,500 MCG) PO SCH (09:00)
[2019-03-05] MEDS: ENSURE PUDDING 4 OZ CUP PO SCH ×2 (09:00→21:24)
[2019-03-05] MEDS ORDERED: POTASSIUM CL SA 10 MEQ TAB PO ONE (09:00)
[2019-03-05] MEDS: ONDANSETRON 4 MG/2 ML VIAL IV PRN (09:01)
[2019-03-05] MEDS: CEFTRIAXONE/SWI 1gm 1 GM/10 ML SYR IVP SCH (09:01)
[2019-03-05] MEDS: PANTOPRAZOLE 40MG TABLET PO SCH (09:02)
[2019-03-05] MEDS: FINASTERIDE 5 MG TAB PO SCH (09:02)
[2019-03-05] MEDS: Rifaximin 550 MG Tab PO SCH ×2 (09:02→21:22)
[2019-03-05] MEDS: MAGNESIUM OXIDE 400 MG TAB PO SCH (09:02)
[2019-03-05] MEDS: CYANOCOBALAMIN 1,000 MCG TAB PO SCH (09:04)
[2019-03-05] MEDS: allopurinoL 300 MG TAB PO SCH (09:05)
[2019-03-05] MEDS: GLUCERNA SHAKE 237 ML CAN PO SCH ×2 (09:05→21:23)
--- NOTE | 2019-03-05 11:37 | RAD REPORT ---
EXAM DESCRIPTION: US - Extrem Venous W Compress [place]ián - 03/05/2019 11:25 am CLINICAL HISTORY: DVT, followup Bilateral leg edema and swelling. COMPARISON: Abdomen Pelvis Wo Contrast dated 03/04/2019; Paracentesis Proc Guidance dated 9; Paracentesis Proc Guidance dated 12/09/2018; Abdomen Exam Limited dated 11/29/2018; Paracentesis P tatiana Guidance dated 01/22/2019 TECHNIQUE: Real-time sonographic interrogation of the left and right lower extremity deep venous sys tems was performed. FINDINGS: No right lower extremity DVT is seen. DVT is present involving the left leg from the commo n femoral vein to the popliteal vein. Some recanalization is seen in the popliteal vein but the femor al vein appears enlarged and filled with thrombus. IMPRESSION: Left lower extremity DVT is present most notable in the femoral vein. Partially recannul ized DVT is seen in the left popliteal vein. No right-sided DVT evident.
[2019-03-05 15:27] LABS: Albumin 2.9 g/dL (3.4-5.0); Bilirubin Total 0.7 mg/dL (0.2-1.0); Potassium 3.5 mmol/L (3.5-5.1); Protein, Total 6.3 g/dL (6.4-8.2)
[2019-03-05 16:28] LABS: Protime INR 3.64
--- NOTE | 2019-03-05 21:54 | P.PN ---
Date of Service: 03/05/19 Vital Signs Temp Pulse Resp BP Pulse Ox 97.8 F 61 18 108/66 100 03/05/19 16:00 03/05/19 16:00 03/05/19 16:00 03/05/19 16:00 03/05/19 16:00 Medications Allopurinol (Zyloprim) 300 mg PO DAILY COUNTS INCLUDE 234 BEDS AT THE [facility] Stop: 04/04/19 09:01 Last Admin: 03/05/19 09:05 Dose: 300 mg Cyanocobalamin (Vitamin B-12) 2,500 mcg PO DAILY COUNTS INCLUDE 234 BEDS AT THE [facility] Stop: 04/04/19 09:01 Last Admin: 03/05/19 09:04 Dose: 2,500 mcg Dextrose (Dextrose 50% Syringe/Vial) 12.5 gm IV PRN PRN PRN Reason: HYPOGLYCEMIA Stop: 04/03/19 16:32 Enteral Nutritional Formula (Ensure Pudding) 4 oz PO BID COUNTS INCLUDE 234 BEDS AT THE [facility] Stop: 04/03/19 21:01 Last Admin: 03/05/19 21:24 Dose: 4 oz Enteral Nutritional Formula (Glucerna Shake) 237 ml PO BID [facility] Stop: 04/03/19 21:01 Last Admin: 03/05/19 21:23 Dose: 237 ml Finasteride (Proscar) 5 mg PO DAILY COUNTS INCLUDE 234 BEDS AT THE [facility] Stop: 04/04/19 09:01 Last Admin: 03/05/19 09:02 Dose: 5 mg Glucagon (Glucagen) 1 mg IM 1X PRN PRN Reason: HYPOGLYCEMIA Stop: 04/03/19 16:32 Ceftriaxone Sodium/Sodium Chloride (Rocephin 1 Gm/10 Ml Swi Ivp) 1 gm in 10 mls @ 600 mls/hr IVP DAILY COUNTS INCLUDE 234 BEDS AT THE [facility]; Protocol Stop: 04/03/19 17:01 Last Admin: 03/05/19 09:01 Dose: 10 mls Insulin Human Regular (Novolin -R) 0 unit SQ ACHS COUNTS INCLUDE 234 BEDS AT THE [facility]; Protocol Stop: 04/03/19 21:01 Last Admin: 03/05/19 21:00 Dose: Not Given Lactulose (Cephulac) 20 gm PO Q4H COUNTS INCLUDE 234 BEDS AT THE [facility] Stop: 04/03/19 17:01 Last Admin: 03/05/19 21:23 Dose: 20 gm Magnesium Oxide (Mag 0x Tab) 400 mg PO DAILY COUNTS INCLUDE 234 BEDS AT THE [facility] Stop: 04/04/19 09:01 Last Admin: 03/05/19 09:02 Dose: 400 mg Ondansetron HCl (Zofran) 4 mg IV Q8H PRN PRN Reason: NAUSEA / VOMITING Stop: 04/03/19 14:24 Last Admin: 03/05/19 09:01 Dose: 4 mg Pantoprazole Sodium (Protonix Tab) 40 mg PO ACB COUNTS INCLUDE 234 BEDS AT THE [facility]; Protocol Stop: 04/04/19 07:31 Last Admin: 03/05/19 09:02 Dose: 40 mg Phytonadione (Vitamin K 10 Mg/Ml) 10 mg SQ 1X [facility] Stop: 04/04/19 07:01 Last Admin: 03/05/19 06:48 Dose: 10 mg Rifaximin (Xifaxan) 550 mg PO BID COUNTS INCLUDE 234 BEDS AT THE [facility]; Protocol Stop: 04/03/19 21:01 Last Admin: 03/05/19 21:22 Dose: 550 mg Sodium Chloride (Normal Saline Flush) 10 ml IV BID COUNTS INCLUDE 234 BEDS AT THE [facility] Stop: 04/03/19 21:01 Last Admin: 03/05/19 21:24 Dose: 10 ml Lab Results (last 24 hrs) 03/04/19 10:40: ABO/Rh A POSITIVE, Antibody Screen Negative Assessment/ Plan: Nephrology CPS stable without CP or SOB. +BALTAZAR +Weakness +Edema No acute events overnight. Vitals, medications, blood work and imaging reviewed in the chart. NAD. MMM. NCAT. Neck supple. Diminished bases. RRR. Soft Distended Abd. No C/C. LLE > RLE Edema. Awake. Normal, limited speech. Laboratory Data 03/04/19 10:40: PT 265.8 H, INR 25.51 H* 03/04/19 10:40: WBC 9.2 D, Hgb 9.9 L, Hct 30.9 L, Plt Count 149 L D 03/04/19 10:40: Sodium 142, Potassium 3.1 L, BUN 48 H, Creatinine 2.10 H, Glucose 85, Magnesium 2.1 D, Total Bilirubin 0.4, AST 48 H, ALT 51, Alkaline Phosphatase 163 H Imagings Data: EXAM DESCRIPTION: RAD - Chest Single View - 03/04/2019 10:49 am CLINICAL HISTORY: COUGH Chest pain. COMPARISON: Chest Single View dated 01/26/2019; Abdomen 1 View (KUB) dated 2018; Chest Single View dated 01/20/2019; Chest Single View dated 11/17/2018 FINDINGS: Portable technique limits examination quality. Emphysematous changes are present throughout the lungs. Poorly defined spiculated area of nodularity is seen in the right mid lung, more prominent than on comparative studies. Nonemergent CT chest followup would be recommended. The heart is normal in size. Sternotomy wires present. EXAM DESCRIPTION: CT - Abdomen Pelvis Wo Contrast - 03/04/2019 4:41 pm CLINICAL HISTORY: Abdominal pain. ascites, coagulopathy. concern for intraabdominal COMPARISON: Abdomen Pelvis Wo Contrast dated 11/17/2018; Chest Single View dated 03/04/2019; Abdomen 1 View (KUB) dated 01/20/2019 TECHNIQUE: CT imaging of the abdomen and pelvis was performed without contrast. Solid organ, bowel and vascular assessment is limited due to lack of IV and oral contrast. All CT scans are performed using dose optimization technique as appropriate and may include automated exposure control or mA/KV adjustment according to patient size. FINDINGS: Emphysematous changes are present throughout the lungs. Prominent liver cirrhosis is seen with common bile duct stent in place. Moderate pneumobilia. Normal size spleen. Adrenal glands and kidneys show no acute process.Prominent distention of the stomach seen. Moderate to large volume of ascites. Moderate stool in the colon. No bowel obstruction. No acute fracture.Air is present in the urinary bladder. IMPRESSION: Large volume ascites. Air is present in the urinary bladder which could indicate infection or recent instrumentation. A limited non-contrast examination was performed as detailed. Conclusions/Impression: A/ HAZEL in the setting of hypotension/ hypoperfusion. Hypokalemia Hypoalbuminemia. Liver cirrhosis. BPH. Anemia in chronic illness. Thrombocytopenia. Coagulopathy in the setting of coumadin therapy. P/ Continue current POC and Medications. Start spironolactone. Potassium replacement as needed. Consider midodrine to improve BP and perfusion. Possible plan for paracentesis; Give IV Albumin. Transfuse PRBC as needed. No NSAIDs. AM labs. Daily weight.
[2019-03-05] MEDS: SPIRONOLACTONE 25 MG TABLET PO SCH (22:39)
[2019-03-06] MEDS: LACTULOSE 20 GM/30 ML UCUP PO SCH ×6 (00:37→21:09)
--- NOTE | 2019-03-06 01:45 | PN ---
Date of Progress Note: 03/05/2019 Subjective: Patient was seen this evening for followup. He was discharged from our facility to go [facility] in [place] about a month ago where he spent few days and then he was sent subse quently discharge from the hospital he came to [facility] and that is where he has been since his discharge. I have talked to the patient's couple of times about his condition and abdelrahman vickie came into office this week to inform me that his abdominal distention due to ascites is getting bet ter now that he requires paracentesis and his prison physician is not able to give any such ord er for outpatient paracentesis. So yesterday, the patient's was given order for routine blood w ork and then paracentesis to be done on an elective outpatient basis. Meanwhile yesterday, the david nt had a pro-time test done as ordered by his prison physician and his INR was 25.5, so he was sent to emergency room. After he was evaluated in the ER, he was admitted to the hospital, but [facility] emergency room or hospitalist team did not contact me for this admission and this morning I was notified per patient's request to take over this patient's care and I saw him this evening. Sabina muñoz received a fresh frozen plasma yesterday. This morning, he received vitamin K 1 dose IV and his coagulopathy has improved. This evening when I saw him, he denied any complaints. Physical Examination: HEENT: Unremarkable. Lungs: Clear to auscultation. Cardiac: Heart sounds normal. Abdomen: Soft, distended with ascites. No guarding, rigidity, tenderness. Extremities: No leg edema. Skin: No evidence of any decubitus ulcer. Laboratory Data: White count 7, hemoglobin 9.4, platelets 110. INR was 25.51 when he first came in and this morning it was 5.57 and after vitamin K injection this afternoon it was 3.64. Chemistry thi s afternoon, sodium 143, potassium 3.5, chloride 108, bicarb 27, BUN 50, creatinine 2.13, glucose 98. Liver function tests unremarkable. Ammonia level today of 30. Venous Doppler done today shows lef t lower extremity DVT, mostly present in left femoral vein and left popliteal vein. No right-sided D VT. Impression: 1.Coagulopathy. 2.Deep venous thrombosis, left leg. 3.Cirrhosis of liver with ascites. 4.Coronary artery disease. 5.Anemia. 6.Thrombocytopenia. 7.Generalized weakness. 8.Debility. Plan: We will go ahead and monitor blood work tomorrow morning. Patient will need paracentesis in t he near future, but we will need to first get this coagulopathy problem addressed. We will repeat hi s PT/INR tomorrow. Continue lactulose and other current medical management. Physical therapy to hel p ambulate him. He had some nausea earlier today responded well to nausea medicine. After that, he has not had any such problem. I will see him tomorrow morning for followup. KAITLYNN/MODL Voice ID: [id number] Report ID: [id number]
[2019-03-06 05:34] LABS: Absolute Lymphocytes (CBC) 0.8 K/uL (0.7-4.9); Basophils % 0.5 % (0-1.3); Hematocrit 28.9 % (39.6-49.0); Lymphocytes % 23.8 % (15.3-44.8); MPV 11.5 fL (7.6-11.3); Protime INR 1.89; RBC Red Blood Cell Count 3.25 M/uL (4.33-5.43)
[2019-03-06 05:49] LABS: Magnesium 2.2 mg/dL (1.8-2.4); Phosphorus 3.3 mg/dL (2.5-4.9); Potassium 3.9 mmol/L (3.5-5.1)
[2019-03-06] MEDS: INSULIN -REGULAR HUMAN 50 UNIT/0.5 ML ML SQ SCH ×4 (07:30→21:00)
[2019-03-06] MEDS: ENSURE PUDDING 4 OZ CUP PO SCH ×2 (09:00→21:10)
[2019-03-06] MEDS ORDERED: POTASSIUM CL SA 10 MEQ TAB PO ONE (09:00)
[2019-03-06] MEDS: CEFTRIAXONE/SWI 1gm 1 GM/10 ML SYR IVP SCH (09:13)
[2019-03-06] MEDS: allopurinoL 300 MG TAB PO SCH (09:14)
[2019-03-06] MEDS: MAGNESIUM OXIDE 400 MG TAB PO SCH (09:19)
[2019-03-06] MEDS: FINASTERIDE 5 MG TAB PO SCH (09:20)
[2019-03-06] MEDS: PANTOPRAZOLE 40MG TABLET PO SCH (09:20)
[2019-03-06] MEDS: SPIRONOLACTONE 25 MG TABLET PO SCH (09:21)
[2019-03-06] MEDS: CYANOCOBALAMIN 1,000 MCG TAB PO SCH (09:21)
[2019-03-06] MEDS: Rifaximin 550 MG Tab PO SCH ×2 (09:25→21:09)
[2019-03-06] MEDS: GLUCERNA SHAKE 237 ML CAN PO SCH ×2 (09:25→21:10)
[2019-03-06] MEDS: ONDANSETRON 4 MG/2 ML VIAL IV PRN (14:55)
[2019-03-06] MEDS ORDERED: SODIUM CHLORIDE 0.9% 10ML INJ IV PRN (17:34)
[2019-03-06] MEDS ORDERED: PANTOPRAZOLE 40 MG INJ IVP ONE (17:34)
[2019-03-06] MEDS ORDERED: PROMETHAZINE INJ 25 MG/ML AMP IV ONE (17:34)
--- NOTE | 2019-03-06 17:38 | P.PN ---
Date of Service: 03/06/19 Vital Signs Temp Pulse Resp BP Pulse Ox 97.6 F 84 18 116/57 L 97 03/06/19 12:00 03/06/19 12:00 03/06/19 12:00 03/06/19 12:00 03/06/19 12:00 Medications Allopurinol (Zyloprim) 300 mg PO DAILY [facility] Stop: 04/04/19 09:01 Last Admin: 03/06/19 09:14 Dose: 300 mg Cyanocobalamin (Vitamin B-12) 2,500 mcg PO DAILY [facility] Stop: 04/04/19 09:01 Last Admin: 03/06/19 09:21 Dose: 2,500 mcg Dextrose (Dextrose 50% Syringe/Vial) 12.5 gm IV PRN PRN PRN Reason: HYPOGLYCEMIA Stop: 04/03/19 16:32 Enteral Nutritional Formula (Ensure Pudding) 4 oz PO BID [facility] Stop: 04/03/19 21:01 Last Admin: 03/06/19 09:00 Dose: Not Given Enteral Nutritional Formula (Glucerna Shake) 237 ml PO BID [facility] Stop: 04/03/19 21:01 Last Admin: 03/06/19 09:25 Dose: 237 ml Finasteride (Proscar) 5 mg PO DAILY [facility] Stop: 04/04/19 09:01 Last Admin: 03/06/19 09:20 Dose: 5 mg Glucagon (Glucagen) 1 mg IM 1X PRN PRN Reason: HYPOGLYCEMIA Stop: 04/03/19 16:32 Ceftriaxone Sodium/Sodium Chloride (Rocephin 1 Gm/10 Ml Swi Ivp) 1 gm in 10 mls @ 600 mls/hr IVP DAILY [facility]; Protocol Stop: 04/03/19 17:01 Last Admin: 03/06/19 09:13 Dose: 10 mls Albumin Human (Albumin 25%) 100 mls @ 100 mls/hr IV 1X ONE Stop: 03/07/19 10:59 Insulin Human Regular (Novolin -R) 0 unit SQ ACHS [facility]; Protocol Stop: 04/03/19 21:01 Last Admin: 03/06/19 11:30 Dose: Not Given Lactulose (Cephulac) 20 gm PO Q4H [facility] Stop: 04/03/19 17:01 Last Admin: 03/06/19 12:18 Dose: 20 gm Magnesium Oxide (Mag 0x Tab) 400 mg PO DAILY [facility] Stop: 04/04/19 09:01 Last Admin: 03/06/19 09:19 Dose: 400 mg Ondansetron HCl (Zofran) 4 mg IV Q8H PRN PRN Reason: NAUSEA / VOMITING Stop: 04/03/19 14:24 Last Admin: 03/06/19 14:55 Dose: 4 mg Pantoprazole Sodium (Protonix Tab) 40 mg PO ACB [facility]; Protocol Stop: 04/04/19 07:31 Last Admin: 03/06/19 09:20 Dose: 40 mg Rifaximin (Xifaxan) 550 mg PO BID [facility]; Protocol Stop: 04/03/19 21:01 Last Admin: 03/06/19 09:25 Dose: 550 mg Sodium Chloride (Normal Saline Flush) 10 ml IV BID [facility] Stop: 04/03/19 21:01 Last Admin: 03/06/19 09:25 Dose: 10 ml Sodium Chloride (Sodium Chloride 10 Ml Inj) 10 ml IV UD PRN PRN Reason: DILUANT Spironolactone (Aldactone) 25 mg PO DAILY [facility] Stop: 04/04/19 22:01 Last Admin: 03/06/19 09:21 Dose: 25 mg Assessment/ Plan: Nephrology CPS stable without CP or SOB. +BALTAZAR +Weakness No acute events overnight. Nurse reports mixed stool and urine output so she is unable to collect a clean urine sample. Vitals, medications, blood work and imaging reviewed in the chart. NAD. MMM. NCAT. Neck supple. Diminished bases. RRR. Soft Distended Abd. No C/C. LLE > RLE Edema. Awake. Normal, limited speech. Laboratory Data 03/04/19 10:40: PT 265.8 H, INR 25.51 H* 03/04/19 10:40: WBC 9.2 D, Hgb 9.9 L, Hct 30.9 L, Plt Count 149 L D 03/04/19 10:40: Sodium 142, Potassium 3.1 L, BUN 48 H, Creatinine 2.10 H, Glucose 85, Magnesium 2.1 D, Total Bilirubin 0.4, AST 48 H, ALT 51, Alkaline Phosphatase 163 H Imagings Data: EXAM DESCRIPTION: RAD - Chest Single View - 03/04/2019 10:49 am CLINICAL HISTORY: COUGH Chest pain. COMPARISON: Chest Single View dated 01/26/2019; Abdomen 1 View (KUB) dated 2018; Chest Single View dated 01/20/2019; Chest Single View dated 11/17/2018 FINDINGS: Portable technique limits examination quality. Emphysematous changes are present throughout the lungs. Poorly defined spiculated area of nodularity is seen in the right mid lung, more prominent than on comparative studies. Nonemergent CT chest followup would be recommended. The heart is normal in size. Sternotomy wires present. EXAM DESCRIPTION: CT - Abdomen Pelvis Wo Contrast - 03/04/2019 4:41 pm CLINICAL HISTORY: Abdominal pain. ascites, coagulopathy. concern for intraabdominal COMPARISON: Abdomen Pelvis Wo Contrast dated 11/17/2018; Chest Single View dated 03/04/2019; Abdomen 1 View (KUB) dated 01/20/2019 TECHNIQUE: CT imaging of the abdomen and pelvis was performed without contrast. Solid organ, bowel and vascular assessment is limited due to lack of IV and oral contrast. All CT scans are performed using dose optimization technique as appropriate and may include automated exposure control or mA/KV adjustment according to patient size. FINDINGS: Emphysematous changes are present throughout the lungs. Prominent liver cirrhosis is seen with common bile duct stent in place. Moderate pneumobilia. Normal size spleen. Adrenal glands and kidneys show no acute process.Prominent distention of the stomach seen. Moderate to large volume of ascites. Moderate stool in the colon. No bowel obstruction. No acute fracture.Air is present in the urinary bladder. IMPRESSION: Large volume ascites. Air is present in the urinary bladder which could indicate infection or recent instrumentation. A limited non-contrast examination was performed as detailed. Conclusions/Impression: A/ HAZEL in the setting of hypotension/ hypoperfusion. HRS? Hypokalemia Hypoalbuminemia. Liver cirrhosis. BPH. Anemia in chronic illness. Thrombocytopenia. Coagulopathy in the setting of coumadin therapy. P/ Continue current POC and Medications. Continue spironolactone. Potassium replacement as needed. Consider midodrine to improve BP and perfusion. Plan for paracentesis tomorrow; Give IV Albumin with procedure. Transfuse PRBC as needed. No NSAIDs. AM labs. Daily weight.
[2019-03-07] MEDS: LACTULOSE 20 GM/30 ML UCUP PO SCH ×4 (00:30→13:16)
--- NOTE | 2019-03-07 01:22 | PN ---
Date of Progress Note: 03/06/2019 Subjective: Patient was seen this morning for followup. He was lying in bed, not in distress, awake, alert. was with him at bedside. Denies any abdominal pain. No nausea, vomiting overnight. Objective: Vital Signs: Reviewed. HEENT: Unremarkable. Lungs: Clear to auscultation. Heart: Sounds normal. Abdomen: Soft. Bowel sounds normal. Presence of ascites. No guarding, rigidity, tenderness. Extremities: No leg edema. Laboratory Data: White count 3.5, hemoglobin 9.4, platelets 105. INR 1.89. Sodium 143, potassium 3.9, chloride 110, bicarb 26, BUN 50, creatinine 2.11, glucose 168. Hemoglobin A1c 6.7. Impression: 1. Coagulopathy. 2. Deep venous thrombosis, left leg. 3. Chronic kidney disease, stage 3. 4. Hypertension. 5. Diabetes mellitus. 6. Thrombocytopenia. 7. Anemia. 8. Cirrhosis of liver with ascites. Plan: We will go ahead and continue to hold warfarin. Plan is to repeat PT/ INR tomorrow, and depending on that result, we will see if he can have radiologist perform therapeutic paracentesis tomorrow or not. We will give 25 g of albumin IV after the paracentesis is done. I will see him tomorrow for followup. KAITLYNN/MODL Voice ID: [id number] Report ID: [id number] MTDD
[2019-03-07 04:08] LABS: Potassium 3.8 mmol/L (3.5-5.1)
[2019-03-07 04:22] LABS: Protime INR 1.33
[2019-03-07 04:45] VITALS: O2SAT 94
[2019-03-07] MEDS: PANTOPRAZOLE 40MG TABLET PO SCH (07:30)
[2019-03-07] MEDS: INSULIN -REGULAR HUMAN 50 UNIT/0.5 ML ML SQ SCH ×2 (07:30→11:30)
[2019-03-07] MEDS: FINASTERIDE 5 MG TAB PO SCH (09:00)
[2019-03-07] MEDS: MAGNESIUM OXIDE 400 MG TAB PO SCH (09:00)
[2019-03-07] MEDS: allopurinoL 300 MG TAB PO SCH (09:00)
[2019-03-07] MEDS: ENSURE PUDDING 4 OZ CUP PO SCH (09:00)
[2019-03-07] MEDS: SPIRONOLACTONE 25 MG TABLET PO SCH (09:00)
[2019-03-07] MEDS ORDERED: POTASSIUM CL SA 10 MEQ TAB PO ONE (09:00)
[2019-03-07] MEDS: GLUCERNA SHAKE 237 ML CAN PO SCH (09:00)
[2019-03-07] MEDS: CYANOCOBALAMIN 1,000 MCG TAB PO SCH (09:00)
[2019-03-07] MEDS: Rifaximin 550 MG Tab PO SCH (09:00)
[2019-03-07] MEDS: CEFTRIAXONE/SWI 1gm 1 GM/10 ML SYR IVP SCH (09:58)
[2019-03-07] MEDS ORDERED: ALBUMIN HUMAN 25% 100 ML IV ONE (10:00)
--- NOTE | 2019-03-07 11:09 | RAD REPORT ---
EXAM DESCRIPTION: US - Paracentesis Proc Guidance - 03/07/2019 10:28 am CLINICAL HISTORY: Liver disease with ascites FINDINGS: The risks, benefits and alternatives to the procedure were explained to the patient and in formed consent obtained. The skin and subcutaneous tissues were anesthetized with Lidocaine. Under sonographic guidance an 8 F rench catheter was placed into the right lower quadrant. 8 liters of yellow fluid was removed The patient experienced no immediate complication. IMPRESSION: Paracentesis
[2019-03-07 13:37] VITALS: BP 130/64; TEMP 97.2
--- NOTE | 2019-03-08 00:06 | DS ---
Date of Discharge: 03/07/2019 Disposition: The patient will be discharged to go to [facility]. Physical Examination: HEENT: Unremarkable. Lungs: Clear to auscultation. Heart: Heart sounds normal. Abdomen: Soft and distended with ascites. No guarding, rigidity, tenderness. Extremities: No leg edema. Laboratory Data: This morning, sodium 145, potassium 3.8, chloride 112, bicarb 24, BUN 50, creatinine 2.41, glucose 188. His INR today is 1.33. Upon admission, his INR was 25. Discharge Medications And Instructions: 1. Continue all prior halfway medications except change warfarin dose. Patient to get warfarin 6 mg by mouth 1 time dose today evening and as of tomorrow the patient to get warfarin 2 mg by mouth daily in evening. 2. Get PT/INR blood test once a week on Sunday or Sunday at halfway and the nurse to check result and notify halfway physician with result to see if any dose adjustment needs to be made or not and goal is to keep INR between 2 -3 range. 3. Follow up with choir director in 1-2 weeks. 4. jail physician to monitor CBC, Chem-7, liver function tests, and ammonia level once a week or every other week starting next week. Hospital Course: An 83-year-old pleasant male patient who was brought to [facility] after he was discharged from [facility] in [place]. He was in our hospital in January and was transferred to [facility] in [place] for his hepatic encephalopathy and worsening problem. After a few to several days stay in the hospital, he was discharged to come to halfway and that is where he was. During his hospital stay in [place], he was detected to have DVT of leg and he was taking warfarin at the halfway and on the day of admission, he had outpatient blood work done, which showed coagulopathy with INR of 25, so the patient was sent to emergency room by halfway physician and after he was evaluated he was admitted to the hospital. Unfortunately, I was not notified by the emergency room physician or hospitalist until the day after admission and he was transferred under my care. Patient had received fresh-frozen plasma and vitamin K, his INR came down. He has significant ascites and we were planning to do outpatient paracentesis on him. INR came down and we made arrangements for him to have therapeutic paracentesis with help of the radiologist and after this procedure, now patient will be discharged to go back to nursing facility in stable condition. Final Diagnoses: 1. Coagulopathy. 2. Cirrhosis of liver with ascites. 3. Chronic kidney disease, stage III. 4. Coronary artery disease. 5. Hypertension. 6. Diabetes mellitus, type 2. 7. Generalized weakness. 8. Debility. 9. Anemia. 10. Thrombocytopenia. KAITLYNN/MODL Voice ID: [id number] Report ID: [id number] MTDD
== END 2019-03-07 14:32 | DRG 813 ==
LOC: ER 09:55 → ERHOLD 14:24 → 2ND 17:19
PROVIDERS: ADMIT Internal Medicine; ATTEND Internal Medicine
PROC: 30233K1 Transfusion of Nonautologous Frozen Plasma into Peripheral Vein, Percutaneous Approach (ICD-10-PCS; 2019-03-04)
PROC: 0W9G3ZZ Drainage of Peritoneal Cavity, Percutaneous Approach (ICD-10-PCS; principal; 2019-03-07)
DX: D68.9 Coagulation defect, unspecified (principal); N17.9 Acute kidney failure, unspecified; R18.8 Other ascites; I12.9 Hypertensive chronic kidney disease with stage 1 through stage 4 chronic kidney disease, or unspecified chronic kidney disease; N18.3 Chronic kidney disease, stage 3 (moderate); E11.9 Type 2 diabetes mellitus without complications; N40.0 Benign prostatic hyperplasia without lower urinary tract symptoms; E78.5 Hyperlipidemia, unspecified; K21.9 Gastro-esophageal reflux disease without esophagitis; I25.10 Atherosclerotic heart disease of native coronary artery without angina pectoris; D64.9 Anemia, unspecified; K74.60 Unspecified cirrhosis of liver; D69.6 Thrombocytopenia, unspecified; Z95.5 Presence of coronary angioplasty implant and graft; Z79.01 Long term (current) use of anticoagulants
CPT/HCPCS: 36415; 36430; 49083; 71045; 74176; 80048; 80053; 80076; 82140; 82947; 83036; 83735; 83880; 84100; 84132; 84484; 84550; 85025; 85610; 86850; 86900; 86901; 93005; 93970; 96372; 96374; 96375; 99285; C9113; J0696; J1940; J2405; J2550; J3010; J3430; J7040; P9047; P9059